=== PATIENT | male | born 1945 | race Caucasian/White ===

== ENCOUNTER 2021-06-02 13:40 | Inpatient (IN) | payer MEDICARE ==
--- NOTE | 2021-06-02 14:49 | ED ---
General Adult HPI - General Source: patient, EMS Mode of arrival: EMS <Gorge Craven - Last Filed: 06/02/21 15:01> <Sophie Kwon - Last Filed: 06/19/21 07:25> - General Chief complaint: Shortness of Breath Stated complaint: covid+ Time Seen by Provider: 06/02/21 14:01 - History of Present Illness Initial comments: 75-year-old male with a past medical history of atrial fibrillation presents to the emergency room for a chief complaint of low pulse oxygenation. Patient was seen at [facility]. He was diagnosed with coronavirus 10 days ago and symptoms started about 2 days before that. Patient was saturating at 83% at home when ambulating which prompted him to go to the emergency room. Patient was found to have oxygenation L ambulating at 83% room air, at rest 88%, at 2 L 92%. According to [facility] report he has also been on Decadron and azithromycin. He has finished azithromycin. Patient has no other complaints at this time including chest pain, abdominal pain, nausea or vomiting, headache, or visual changes. (Gorge Craven) - Related Data Home Medications Medication Instructions Recorded Confirmed Albuterol Sulfate [Albuterol 2 puff INHALATION RT-Q4H PRN 06/02/21 06/02/21 Sulfate Hfa] Ascorbic Acid [Vitamin C] 500 mg PO DAILY 06/02/21 06/02/21 Aspirin EC [Ecotrin Low Dose] 81 mg PO DAILY 06/02/21 06/02/21 Calcium/Magnesium/Zinc 1 tab PO DAILY 06/02/21 06/02/21 [Leggiwb-Jccsboqsk-Egbd Tablet] Cholecalciferol [Vitamin D3 (25 25 mcg PO DAILY 06/02/21 06/02/21 Mcg = 1000 Iu)] Cyanocobalamin (Vitamin B-12) 1,000 mcg PO DAILY 06/02/21 06/02/21 [Vitamin B-12] Dexamethasone 6 mg PO DAILY 06/02/21 06/02/21 Doxycycline Hyclate 100 mg PO BID 06/02/21 06/02/21 Loratadine 10 mg PO DAILY 06/02/21 06/02/21 Metoprolol Succinate (ER) [Toprol 25 mg PO DAILY 06/02/21 06/02/21 Xl] Ondansetron Odt [Zofran Odt] 8 mg PO Q8HR PRN 06/02/21 06/02/21 Super Beta Prostate 1 tab PO BID 06/02/21 06/02/21 Vit C/E/Zn/Coppr/Lutein/Zeaxan 1 cap PO BID 06/02/21 06/02/21 [Preservision Areds 2 Softgel] Zinc 100 mg PO DAILY 06/02/21 06/02/21 Allergies Allergy/AdvReac Type Severity Reaction Status Date / Time No Known Allergies Allergy Verified 06/02/21 15:10 Review of Systems ROS Other: All systems not noted in ROS Statement are negative. <Gorge Craven P - Last Filed: 06/02/21 15:01> ROS Other: All systems not noted in ROS Statement are negative. <Sophie Kwon - Last Filed: 06/19/21 07:25> ROS Statement: Those systems with pertinent positive or pertinent negative responses have been documented in the HPI. Past Medical History Past Medical History: Atrial Fibrillation Additional Past Medical History / Comment(s): BPH History of Any Multi-Drug Resistant Organisms: None Reported Past Surgical History: Cholecystectomy, Hernia Repair, Joint Replacement, Orthopedic Surgery Additional Past Surgical History / Comment(s): KNEE REPLACEMENT KAYODE Past Psychological History: No Psychological Hx Reported Smoking Status: Former smoker Past Alcohol Use History: None Reported Past Drug Use History: None Reported <Gorge Craven P - Last Filed: 06/02/21 15:01> General Exam General appearance: alert, in no apparent distress Head exam: Present: atraumatic Eye exam: Present: normal appearance, PERRL, EOMI. Absent: scleral icterus, conjunctival injection ENT exam: Present: normal exam, mucous membranes moist Neck exam: Present: normal inspection, full ROM. Absent: tenderness Respiratory exam: Present: normal lung sounds bilaterally. Absent: respiratory distress, wheezes Cardiovascular Exam: Present: regular rate, normal rhythm, normal heart sounds GI/Abdominal exam: Present: soft, normal bowel sounds. Absent: distended, tenderness Neurological exam: Present: alert <Gorge Craven P - Last Filed: 06/02/21 15:01> Course Vital Signs 06/02/21 06/02/21 06/02/21 13:52 14:32 16:01 Temperature 99.1 F Pulse Rate 83 84 Respiratory 16 16 16 Rate Blood Pressure 120/73 133/71 O2 Sat by Pulse 96 94 L Oximetry 06/02/21 06/02/21 06/02/21 19:19 20:20 21:28 Temperature 97.6 F Pulse Rate 66 75 76 Respiratory 20 18 20 Rate Blood Pressure 109/96 131/97 O2 Sat by Pulse 93 L 95 94 L Oximetry 06/02/21 06/03/21 06/03/21 22:58 00:58 02:05 Temperature Pulse Rate 60 56 L 79 Respiratory 18 18 20 Rate Blood Pressure 138/84 118/76 142/79 O2 Sat by Pulse 93 L 98 94 L Oximetry 06/03/21 06/03/21 06/03/21 03:10 04:35 05:00 Temperature Pulse Rate 84 91 86 Respiratory 22 26 H 22 Rate Blood Pressure 124/68 O2 Sat by Pulse 92 L 84 L 92 L Oximetry 06/03/21 06/03/21 06/03/21 05:36 06:26 06:31 Temperature Pulse Rate 71 81 Respiratory 22 20 20 Rate Blood Pressure 115/64 O2 Sat by Pulse 94 L 93 L Oximetry 06/03/21 06/03/21 06/03/21 07:35 11:10 15:04 Temperature 98.5 F 98.8 F Pulse Rate 66 99 89 Respiratory 20 22 20 Rate Blood Pressure 120/68 116/61 128/78 O2 Sat by Pulse 90 L 95 93 L Oximetry Medical Decision Making <Gorge Craven P - Last Filed: 06/02/21 15:01> - Lab Data Result diagrams: 06/19/21 03:25 06/19/21 03:25 <Sophie Kwon - Last Filed: 06/19/21 07:25> - Medical Decision Making Patient presents on 2 L nasal cannula. When oxygen was removed he did desaturate to 90 and I did restart his oxygen. He was apparently a 88% room air @ rest at [facility]. Patient is well-appearing. However he has White blood cell count is 16.5. D-dimer was 580 within normal range of less than 500, pro time 15.2, fibrinogen 88 7. Slight transaminitis. LDH 346 CRP 78 lactic acid 2.4 chest x-ray did show pneumonia. Report will be uploaded. He did receive 1 L normal saline bolus at [facility]. Case is discussed with Dr. Gordon who did agree with starting antibiotics given the leukocytosis and lactic acidosis. We will start IV Decadron. We will consult pulmonology. (Gorge Craven) Disposition Is patient prescribed a controlled substance at d/c from ED?: No Time of Disposition: 15:10 <Gorge Craven - Last Filed: 06/02/21 15:01> <Sophie Kwon - Last Filed: 06/19/21 07:25> Clinical Impression: COVID, Acute and chronic respiratory failure with hypoxia, Leukocytosis, Lactic acidosis Disposition: ADMITTED IP TO THIS HOSP
[2021-06-02] MEDS ORDERED: DEXAMETHASONE SOD PHOSPHATE 4 MG/ML 1 ML VIAL IV STA (15:02)
[2021-06-02] MEDS ORDERED: AZITHROMYCIN 500 MG in SODIUM CHLORIDE 0.9% 250 ML IVPB STA (15:02)
[2021-06-02] MEDS ORDERED: cefTRIAXone IN SWFI 1,000 MG/10 ML SYRINGE IVP STA (15:02)
[2021-06-02] MEDS ORDERED: PNEUMONIA PROTOCOL UTILIZED 1 EACH MISC PO PRN (15:12)
[2021-06-02] MEDS: SODIUM CHLORIDE 0.9% 1,000 ML IV SCH ×2 (15:43→18:29)
[2021-06-02] MEDS: METOPROLOL TARTRATE 25 MG TAB PO SCH (18:28)
--- NOTE | 2021-06-02 19:53 | XR ---
EXAMINATION TYPE: XR chest 1V portable DATE OF EXAM: 06/02/2021 COMPARISON: NONE HISTORY: Pneumonia TECHNIQUE: Single view FINDINGS: Heart and mediastinum are normal. There is patchy interstitial infiltrates in the mid and l ower lung de la torre. There is no definite heart failure. There are chest leads. IMPRESSION: Bilateral interstitial pneumonia.
[2021-06-02] MEDS ORDERED: ONDANSETRON ODT 8 MG TAB.RAPDIS PO PRN (20:01)
[2021-06-02 20:49] LABS: Basophils % (A) 0 %; Eosinophils # (A) 0.1 k/uL (0-0.7); Eosinophils % (A) 0 %; HGB 14.6 gm/dL (13.0-17.5); Lymphocytes # (A) 0.6 k/uL (1.0-4.8); Lymphocytes % (A) 3 %; MCH 30.1 pg (25.0-35.0); MCHC 32.5 g/dL (31.0-37.0); MCV 92.4 fL (80.0-100.0); Mean Platelet Volume 8.6; Monocytes # (A) 0.8 k/uL (0-1.0); Monocytes % (A) 5 %; Neutrophils # (A) 14.6 k/uL (1.3-7.7); Neutrophils % (A) 91 %; Platelet Count 286 k/uL (150-450); RBC 4.87 m/uL (4.30-5.90); RDW 13.1 % (11.5-15.5); WBC 16.2 k/uL (3.8-10.6)
[2021-06-02] MEDS: ZINC SULFATE 220 MG CAP PO SCH (20:55)
[2021-06-02] MEDS: PANTOPRAZOLE 40 MG TABLET PO SCH (20:55)
[2021-06-02] MEDS: ENOXAPARIN 40 MG/0.4 ML SYRINGE SQ SCH (20:56)
[2021-06-02 21:04] LABS: ALT 119 U/L (4-49); AST 82 U/L (17-59); African American GFR (CKD) >90 (>60 ml/min/1.73 sqM); Alkaline Phosphatase 94 U/L (38-126); Anion Gap 8 mmol/L; Blood Urea Nitrogen 19 mg/dL (9-20); C Reactive Protein 7.7 mg/dL (<1.0); Calcium 8.1 mg/dL (8.4-10.2); Carbon Dioxide 22 mmol/L (22-30); Chloride 107 mmol/L (98-107); Globulin 3.1 g/dL; Glucose 142 mg/dL (74-99); Non-African American GFR(CKD) >90 (>60 ml/min/1.73 sqM); Potassium 4.8 mmol/L (3.5-5.1); Sodium 137 mmol/L (137-145); Total Bilirubin 0.8 mg/dL (0.2-1.3); Total Protein 6.1 g/dL (6.3-8.2)
--- NOTE | 2021-06-02 21:40 | HP ---
HISTORY AND PHYSICAL DATE OF SERVICE: 06/02/2021. CHIEF COMPLAINT: Shortness of breath and Covid positive. HISTORY OF PRESENT ILLNESS: This 76-year-old gentleman with past medical history of atrial fibrillation, BPH, history of cholecystectomy, being followed by Dr. Wagner in [facility], was complaining of shortness of breath. The patient apparently was having shortness of breath and cough and other symptoms for the last almost 12 days. The patient had a low pulse ox, was monitoring the pulse ox at home and was 83 on ambulation and the patient was concerned. Patient came to [facility] and was admitted and was found to have pneumonia and was referred to [facility] for further evaluation and treatment. The patient also found to have lactic acidosis. There is no history of fever, rigors. No history of headache, loss of consciousness or seizures at this time. The patient is a unvaccinated. PAST MEDICAL HISTORY: History of atrial fibrillation, BPH, history of cholecystectomy, history of hernia. MEDICATIONS: Home medications are: Albuterol, super beta prostate, vitamin B12, calcium, vitamin D3, ascorbic acid, Zofran, Toprol-XL. Levaquin, aspirin, doxycycline, dexamethasone. ALLERGIES: None. FAMILY HISTORY: No history of heart disease or strokes in the family. SOCIAL HISTORY: Previous history of smoking. No history of current smoking or alcohol. REVIEW OF SYSTEMS: ENT: No diminished hearing. No diminished vision. CARDIOVASCULAR system: S1, S2 muffled. RESPIRATORY: As mentioned earlier. GI no nausea or vomiting. mentioned earlier. NERVOUS SYSTEM: No numbness, weakness. ALLERGY/IMMUNOLOGY: No asthma or hayfever. MUSCULOSKELETAL: As mentioned earlier. HEMATOLOGY/ONCOLOGY: No history of anemia. ENDOCRINE: As mentioned earlier. CONSTITUTIONAL: As mentioned earlier. DERMATOLOGY: Negative. RHEUMATOLOGY negative. PSYCHIATRY as mentioned earlier. PHYSICAL EXAMINATION: Patient is alert and oriented times three. The patient is short of breath. Pulse is 66, blood pressure 109/93, respirations 20. Temperature 97.6, pulse ox 93 percent on 4 L. HEENT: Conjunctivae normal. Oral mucosa moist. NECK is no jugular venous distention. No carotid bruit. No lymph node enlargement. CARDIOVASCULAR systems: S1, S2 muffled. RESPIRATION: Breath sounds diminished in the bases. A few scattered rhonchi. ABDOMEN: Soft. Nontender. NERVOUS SYSTEM: Higher functions as mentioned earlier. Moves all four limbs. No focal motor or sensory deficits. LYMPHATICS: No lymph nodes palpable in the neck, axillae or groin. SKIN: No ulcer, rash and no bleeding. JOINTS: No active deforming arthropathy. LABS: Pending at this time. Chest x-ray was reviewed personally by me showed significant bilateral lower lobe infiltrates suggestive of Covid 19 pneumonia. ASSESSMENT: 1. Acute Covid 19 infection with acute Covid 19 interstitial pneumonia, bilateral, with acute hypoxic respiratory failure. 2. History of cholecystectomy. 3. History of atrial fibrillation. 4. History of benign prostatic hypertrophy. 5. History of hernia repair. 6. History of degenerative joint disease. 7. Remote history of nicotine dependence. 8. Lactic acidosis. RECOMMENDATIONS: Recommend to continue current medications, management and symptomatic treatment. We will consult pulmonology and we will initiate usual medications for Covid including dexamethasone, zinc and vitamin. Otherwise, the patient might be a candidate for Remdesivir. We will also do a D-dimer and if D-dimer is positive, I would also perform CT angio of the chest. Prognosis guarded. Further recommendations to follow. MMODL / IJN: [id number] /
[2021-06-02] MEDS: ALBUTEROL HFA INHALER INHALATION SCH ×2 (21:47→22:01)
[2021-06-03] MEDS: ALBUTEROL HFA INHALER INHALATION SCH ×5 (02:45→20:41)
[2021-06-03] MEDS ORDERED: ALBUTEROL HFA INHALER INHALATION PRN (02:46)
--- NOTE | 2021-06-03 07:06 | XR ---
EXAMINATION TYPE: XR chest 1V DATE OF EXAM: 06/03/2021 HISTORY: Shortness of breath. COMPARISON: 06/02/2021 TECHNIQUE: Single view of the chest is submitted. FINDINGS: Demonstrated are scattered senescent parenchymal change. Coarse infiltrates are noted about the perihilar right upper lobe regions mildly progressive relative to prior examination. Continued follow-up is advised. The heart is stable. Hilar and mediastinal structures are within normal limits. Degenerative changes are seen of the dorsal spine. IMPRESSION: 1. Coarse infiltrates are noted about the perihilar right upper lobe regions mildly progressive rela tive to prior examination. Continued follow-up is advised.
[2021-06-03] MEDS ORDERED: cefTRIAXone IN SWFI 1,000 MG/10 ML SYRINGE IVP SCH (09:00)
[2021-06-03 09:08] LABS: Basophils # (A) 0.02 X 10*3/uL (0.00-0.10); Basophils % (A) 0.1 %; Eosinophils # (A) 0 X 10*3/uL (0.04-0.35); Eosinophils % (A) 0 %; HGB 13.9 g/dL (13.0-17.0); Lymphocytes # (A) 0.78 X 10*3/uL (0.90-5.00); Lymphocytes % (A) 4.1 %; MCH 28.4 pg (27.0-32.0); MCHC 32.3 g/dL (32.0-37.0); MCV 87.8 fL (80.0-97.0); Mean Platelet Volume 10.3 fL (9.5-12.2); Monocytes # (A) 0.83 X 10*3/uL (0.20-1.00); Monocytes % (A) 4.4 %; Neutrophils # (A) 17.04 X 10*3/uL (1.80-7.70); Neutrophils % (A) 90.1 %; Platelet Count 324 X 10*3/uL (140-440); RDW 13.4 % (11.5-14.5); WBC 18.92 X 10*3/uL (4.50-10.00)
[2021-06-03] MEDS: ASPIRIN 81 MG PO SCH (10:08)
[2021-06-03] MEDS: ZINC SULFATE 220 MG CAP PO SCH (10:08)
[2021-06-03] MEDS: ASCORBIC ACID 500 MG TAB PO SCH (10:08)
[2021-06-03] MEDS: DEXAMETHASONE SOD PHOSPHATE 10 MG/ML 1 ML VIAL IV SCH (10:08)
[2021-06-03] MEDS: ENOXAPARIN 40 MG/0.4 ML SYRINGE SQ SCH (10:08)
[2021-06-03] MEDS: CHOLECALCIFEROL 25 MCG (1000 IU) TABLET PO SCH (10:08)
[2021-06-03] MEDS: PANTOPRAZOLE 40 MG TABLET PO SCH ×2 (10:08→17:11)
[2021-06-03] MEDS: METOPROLOL TARTRATE 25 MG TAB PO SCH (10:08)
[2021-06-03] MEDS: CYANOCOBALAMIN 500 MCG TAB PO SCH (10:11)
--- NOTE | 2021-06-03 10:18 | P.CNPUL ---
History of Present Illness Consult date: 06/03/21 Requesting physician: Noemi Price Reason for consult: dyspnea, cough, hypoxemia, pneumonia, abnormal CXR/CT Chief complaint: Shortness of breath and cough. History of present illness: Pulmonary consult dated 06/03/2021. 75-year-old male, admitted with a diagnosis of coronavirus associated pneumonia. The patient has a history of chronic atrial fibrillation. The patient apparently was seen by his primary doctor, and given antibiotics and steroids. The patient became ill with complaints of cough and shortness of breath, with fever and chills, back on May 23. Positive for coronavirus on May 24. The patient was in the [facility] emergency room yesterday, and transferred here. The patient does have a history of chronic atrial fibrillation. The patient was placed on Lovenox, Decadron, and vitamins. The patient was not a candidate for REM. The patient is non-vaccinated. Currently, we see him in room 10, in the emergency department. White count 18.92. Hemoglobin hematocrit and platelet count are all normal. D-dimer was 0.7. Sodium, potassium, chloride, CO2, anion gap, and BUN were normal. Creatinine was 0.62. Ferritin 826, ALT 119. LDH was 1075. C-reactive protein 7.7. Chest x-ray shows diffuse bilateral infiltrates. Review of Systems REVIEW OF SYSTEMS: CONSTITUTIONAL: Fever, and weakness. NEUROLOGIC: [ Negative.] HEENT: [ Negative.] CARDIAC: [Negative.] PULMONARY: Shortness of breath, cough, chest congestion. GI: [Negative.] : [Negative.] RHEUMATOLOGIC: [ Negative.] IMMUNOLOGIC: [ Negative.] ENDOCRINE: [Negative. ] DERMATOLOGIC: [Negative.] Past Medical History Past Medical History: Atrial Fibrillation Additional Past Medical History / Comment(s): BPH History of Any Multi-Drug Resistant Organisms: None Reported Past Surgical History: Cholecystectomy, Hernia Repair, Joint Replacement, Orthopedic Surgery Additional Past Surgical History / Comment(s): KNEE REPLACEMENT KAYODE Past Psychological History: No Psychological Hx Reported Smoking Status: Former smoker Past Alcohol Use History: None Reported Past Drug Use History: None Reported Medications and Allergies Home Medications Medication Instructions Recorded Confirmed Type Albuterol Sulfate [Albuterol 2 puff INHALATION RT-Q4H PRN 06/02/21 06/02/21 History Sulfate Hfa] Ascorbic Acid [Vitamin C] 500 mg PO DAILY 06/02/21 06/02/21 History Aspirin EC [Ecotrin Low Dose] 81 mg PO DAILY 06/02/21 06/02/21 History Calcium/Magnesium/Zinc 1 tab PO DAILY 06/02/21 06/02/21 History [Wegvofm-Eaykulxsz-Xhzz Tablet] Cholecalciferol [Vitamin D3 (25 25 mcg PO DAILY 06/02/21 06/02/21 History Mcg = 1000 Iu)] Cyanocobalamin (Vitamin B-12) 1,000 mcg PO DAILY 06/02/21 06/02/21 History [Vitamin B-12] Dexamethasone 6 mg PO DAILY 06/02/21 06/02/21 History Doxycycline Hyclate 100 mg PO BID 06/02/21 06/02/21 History Loratadine 10 mg PO DAILY 06/02/21 06/02/21 History Metoprolol Succinate (ER) [Toprol 25 mg PO DAILY 06/02/21 06/02/21 History Xl] Ondansetron Odt [Zofran Odt] 8 mg PO Q8HR PRN 06/02/21 06/02/21 History Super Beta Prostate 1 tab PO BID 06/02/21 06/02/21 History Vit C/E/Zn/Coppr/Lutein/Zeaxan 1 cap PO BID 06/02/21 06/02/21 History [Preservision Areds 2 Softgel] Zinc 100 mg PO DAILY 06/02/21 06/02/21 History Allergies Allergy/AdvReac Type Severity Reaction Status Date / Time No Known Allergies Allergy Verified 06/02/21 15:10 Physical Exam Osteopathic Statement: *. No significant issues noted on an osteopathic structural exam other than those noted in the History and Physical/Consult. Vitals: Vital Signs Temp Pulse Resp BP Pulse Ox 06/03/21 07:35 66 20 120/68 90 L 06/03/21 06:31 81 20 93 L 06/03/21 06:26 20 06/03/21 05:36 71 22 115/64 94 L 06/03/21 05:00 86 22 92 L 06/03/21 04:35 91 26 H 124/68 84 L 06/03/21 03:10 84 22 92 L 06/03/21 02:05 79 20 142/79 94 L 06/03/21 00:58 56 L 18 118/76 98 06/02/21 22:58 60 18 138/84 93 L 06/02/21 21:28 76 20 94 L 06/02/21 20:20 75 18 131/97 95 06/02/21 19:19 97.6 F 66 20 109/96 93 L 06/02/21 16:01 84 16 133/71 94 L 06/02/21 14:32 16 06/02/21 13:52 99.1 F 83 16 120/73 96 No acute distress, oriented 3. Currently on nasal O2 at 6 L. No conversational dyspnea, or use of accessory muscles. HEENT examination is grossly unremarkable. Neck supple. Full range of motion. No adenopathy thyromegaly or neck vein distention. Cardiovascular examination reveals regular rhythm rate. S1-S2 normal. No S3 or S4. No discernible murmur noted. Heart rate 66 bpm. Heart sounds are distant. Lungs reveal coarse bilateral rhonchi. No wheezes or crackles. Breath sounds equal bilaterally. Saturations are 90-93% on 6 L. Abdomen soft bowel sounds are heard. No masses or tenderness. Extremities are intact. No cyanosis clubbing or edema. Skin is without rash or lesion. Neurologic examination is brief but nonfocal. Results - Laboratory Findings CBC and BMP: 06/03/21 04:50 06/02/21 20:08 PT/INR, D-dimer D-Dimer 0.70 mg/L FEU (<0.60) H 06/02/21 20:08 Abnormal lab findings: Abnormal Labs 06/02/21 06/02/21 06/02/21 20:08 20:08 20:08 WBC 16.2 H Immature Gran # Neutrophils # 14.6 H Lymphocytes # 0.6 L Eosinophils # D-Dimer 0.70 H Creatinine Glucose Calcium Ferritin 826.0 H AST ALT Lactate Dehydrogenase 1075 H C-Reactive Protein Total Protein Albumin 06/02/21 06/03/21 20:08 04:50 WBC 18.92 H Immature Gran # 0.25 H Neutrophils # 17.04 H Lymphocytes # 0.78 L Eosinophils # 0 L D-Dimer Creatinine 0.62 L Glucose 142 H Calcium 8.1 L Ferritin AST 82 H ALT 119 H Lactate Dehydrogenase C-Reactive Protein 7.7 H Total Protein 6.1 L Albumin 3.0 L - Diagnostic Findings Chest x-ray: image reviewed Assessment and Plan Assessment: Acute hypoxemic respiratory failure secondary to coronavirus associated pneumonia. History of chronic atrial fibrillation. Plan: Plan dated 06/03/2021. The patient is not a candidate for REM. The patient is not sick enough to receive a monoclonal antibody against interleukin-6. The patient should be on Lovenox, Decadron, and vitamins. We recommend oxygen therapy. We also recommend the patient move about in bed, right side down, left side down, supine, and prone if possible. Additional recommendations and suggestions are forthcoming. No need for antibiotics at this time. A pro-calcitonin level was ordered. Time with Patient: Greater than 30
[2021-06-03] MEDS ORDERED: ACETAMINOPHEN TAB 325 MG TAB PO STA (10:51)
--- NOTE | 2021-06-03 12:48 | CT ---
EXAMINATION TYPE: CT angio chest DATE OF EXAM: 06/03/2021 COMPARISON: Radiograph same day HISTORY: 75-year-old male shortness of breath, covid 19 TECHNIQUE: Contiguous axial scanning of the chest performed with IV Contrast, patient injected with 1 00 mL of Isovue 300. Coronal/sagittal MIP reconstructions performed. CT DLP: 437.6 mGycm Automated exposure control for dose reduction was used. FINDINGS: The heart is borderline enlarged without pericardial effusion. No flattening of the interventricular septum or reflux of contrast into the hepatic veins. Mild ectasia ascending aorta 3.6 cm. Conventional arch vessel branching anatomy. Enlarged caliber to the main right and left pulmonary arteries measuring 3.2 and 2.7 cm, respectively , suggesting underlying pulmonary arterial hypertension. Satisfactory opacification of the pulmonary arterial system but with a extensive breathing motion art ifact. No large central pulmonary embolus. No definite lobar branch embolus. Again, assessment is xenia y limited. Unable to exclude a small central filling defect within a segmental right lower lobe basil ar branch. Most of the segmental and more distal arterial branches are nondiagnostic due to the degre e of breathing motion. Right hilar lymphadenopathy measuring up to 1.9 cm likely reactive. Pretracheal lymph node measures u p to 1.4 cm. Severe patchy and confluent bilateral groundglass and crazy paving appearance to the lungs. Dependent atelectasis. Bones: Disc osteophyte complex at T12-L1 may contribute to moderate central spinal canal stenosis. No rmal variant sternal foramen. IMPRESSION: 1. THE PATIENT IS BREATHING DURING THE SCAN. THIS MARKEDLY LIMITS ASSESSMENT FOR PULMONARY EMBOLUS. N O LARGE CENTRAL EMBOLUS. NO DEFINITE LOBAR BRANCH EMBOLUS. EQUIVOCAL FOR A SMALL EMBOLUS WITHIN A BAS ILAR SEGMENTAL RIGHT LOWER LOBE BRANCH, AXIAL IMAGE 73. MOST OF THESE SMALLER BRANCHES ARE NONDIAGNOS TIC DUE TO THE DEGREE OF MOTION. 2. BORDERLINE CARDIOMEGALY AND PULMONARY ARTERIAL HYPERTENSION. 3. SEVERE BILATERAL COVID PNEUMONIA. RIGHT HILAR LYMPHADENOPATHY MEASURING UP TO 1.9 CM LIKELY REACTI VE.
[2021-06-03] MEDS ORDERED: AZITHROMYCIN 500 MG in SODIUM CHLORIDE 0.9% 250 ML IVPB SCH (15:00)
[2021-06-03] MEDS: SODIUM CHLORIDE 0.9% 1,000 ML IV SCH (17:13)
[2021-06-03] MEDS: ENOXAPARIN 80 MG/0.8 ML SYRINGE SQ SCH (19:37)
--- NOTE | 2021-06-03 19:45 | PN ---
PROGRESS NOTE DATE OF SERVICE: 06/03/2021. HISTORY: This 75-year-old gentleman admitted with acute Covid 19 infection also had acute Covid 19 interstitial pneumonia. The patient also hypoxemia, patient had extreme shortness of breath. Pulmonary is following the patient closely. Bronchodilators and the usual medications are also noted. CTA which reviewed personally showed underlying pulmonary hypertension. Otherwise, severe bilateral pneumonia as well as right lymphadenopathy, equivocal for a small embolus in the basilar segmental right lower lobe artery. The patient being closely monitored. Patient is still short of breath, unable to even complete the sentences. PAST MEDICAL HISTORY: Reviewed. REVIEW OF SYSTEMS: Cardiovascular is as mentioned earlier. GI as mentioned. as mentioned. Respiratory as mentioned earlier. CURRENT MEDICATIONS: Ventolin, vitamin C, aspirin, vitamin D3, B12, Decadron, Lovenox, Lopressor, Zofran, Protonix. PHYSICAL EXAMINATION: Patient is alert, oriented, the patient is extremely short of breath. Pulse 89, blood pressure 120/78, respirations 20 temperature 98.8, pulse ox 98% on 2 L. HEENT: S1, S2 muffled. RESPIRATORY SYSTEM: Breath sounds diminished at the bases. Bilateral scattered rhonchi and crackles. ABDOMEN: Soft, nontender. No mass palpable. LEGS: No edema no swelling. NERVOUS SYSTEM: As mentioned. Moves all 4 limbs equally. LYMPHATICS: No palpable nodes. SKIN: No rashes. JOINTS: No active arthropathy. LABS: WBC 18.2, and D-dimer is 0.70. Troponin 0.012. ASSESSMENT: 1. Acute Covid 19 infection with acute Covid 19 interstitial pneumonia, bilateral, with acute hypoxic respiratory failure. 2. Extensive interstitial bilateral Covid 19 pneumonia. 3. Possible subsegmental pulmonary embolism. 4. History of cholecystectomy. 5. History atrial fibrillation. 6. History of BPH. 7. History of hernia repair. 8. History of DJD. 9. Remote history of nicotine dependence. 10.Lactic acidosis. RECOMMENDATIONS AND DISCUSSION: I recommend to continue current management and symptomatic treatment. Otherwise procalcitonin is normal at this time. Recommend increase the dose of Lovenox and continue to monitor. Ultrasound of the leg also will be requested. The prognosis is guarded because of multiple complex medical problems. See orders for details. MMODL / IJN: [id number] /
--- NOTE | 2021-06-03 22:10 | US ---
EXAMINATION TYPE: US venous doppler duplex LE BI DATE OF EXAM: 06/03/2021 9:05 PM COMPARISON: NONE CLINICAL HISTORY: dvt. SIDE PERFORMED: Bilateral TECHNIQUE: The lower extremity deep venous system is examined utilizing real time linear array sonog ranulfo with graded compression, doppler sonography and color-flow sonography. VESSELS IMAGED: Common Femoral Vein Deep Femoral Vein Greater Saphenous Vein * Femoral Vein Popliteal Vein Small Saphenous Vein * Proximal Calf Veins (* superficial vessels) Right Leg: Negative for DVT Left Leg: Negative for DVT IMPRESSION: No evidence of bilateral lower extremity DVT.
[2021-06-04] MEDS: PANTOPRAZOLE 40 MG TABLET PO SCH ×2 (08:08→17:44)
[2021-06-04] MEDS: ASPIRIN 81 MG PO SCH (08:08)
[2021-06-04] MEDS: CHOLECALCIFEROL 25 MCG (1000 IU) TABLET PO SCH (08:08)
[2021-06-04] MEDS: ASCORBIC ACID 500 MG TAB PO SCH (08:08)
[2021-06-04] MEDS: SODIUM CHLORIDE 0.9% 1,000 ML IV SCH ×2 (08:08→17:44)
[2021-06-04] MEDS: METOPROLOL TARTRATE 25 MG TAB PO SCH (08:09)
[2021-06-04] MEDS: ZINC SULFATE 220 MG CAP PO SCH (08:09)
[2021-06-04] MEDS: ENOXAPARIN 80 MG/0.8 ML SYRINGE SQ SCH (08:09)
[2021-06-04] MEDS: DEXAMETHASONE SOD PHOSPHATE 10 MG/ML 1 ML VIAL IV SCH (08:09)
[2021-06-04] MEDS: CYANOCOBALAMIN 500 MCG TAB PO SCH (08:09)
[2021-06-04] MEDS: ALBUTEROL HFA INHALER INHALATION SCH ×4 (09:26→20:43)
--- NOTE | 2021-06-04 11:14 | P.PN ---
Subjective Progress Note Date: 06/04/21 Principal diagnosis: Shortness of breath, coronavirus pneumonia. Pulmonary consult dated 06/03/2021. 75-year-old male, admitted with a diagnosis of coronavirus associated pneumonia. The patient has a history of chronic atrial fibrillation. The patient apparently was seen by his primary doctor, and given antibiotics and steroids. The patient became ill with complaints of cough and shortness of breath, with fever and chills, back on May 23. Positive for coronavirus on May 24. The patient was in the [facility] emergency room yesterday, and transferred here. The patient does have a history of chronic atrial fibrillation. The patient was placed on Lovenox, Decadron, and vitamins. The patient was not a candidate for REM. The patient is non-vaccinated. Currently, we see him in room 10, in the emergency department. White count 18.92. Hemo globin hematocrit and platelet count are all normal. D-dimer was 0.7. Sodium, potassium, chloride, CO2, anion gap, and BUN were normal. Creatinine was 0.62. Ferritin 826, ALT 119. LDH was 1075. C-reactive protein 7.7. Chest x-ray shows diffuse bilateral infiltrates. Progress note dated 06/04/2021. 75-year-old male, seen in the emergency department yesterday, the diagnosis of acute hypoxemic respiratory failure secondary to coronavirus associated pneumonia. The patient also has a history of chronic atrial fibrillation. The patient was outside the window for REM. The patient's overall condition in the last couple days has worsened, and we will likely try to provide him with the monoclonal antibody against interleukin-6, LUIS. Currently, the patient is getting oxygen via 15 L high flow nasal cannula, and sometimes using a nonrebreather mask as well. There were no new labs today. Venous Doppler studies were negative. CT angiogram was essentially negative for pulmonary embolism but did show patchy bilateral infiltrates consistent with a diagnosis of coronavirus pneumonia. Objective - Vital Signs Vital signs: Vital Signs Temp 98.8 F 06/04/21 10:00 Pulse 70 06/04/21 10:00 Resp 22 06/04/21 10:00 BP 128/68 06/04/21 10:00 Pulse Ox 90 L 06/04/21 10:58 Intake & Output 06/03/21 06/04/21 06/04/21 18:59 06:59 18:59 Output Total 400 500 Balance -400 -500 Weight 98 kg Output: Urine 400 500 Other: # Voids 2 - Exam No acute distress, oriented 3. Currently on nasal O2 at 15 L. Also using a nonrebreather mass. Mild conversational dyspnea, and no use of accessory muscles. HEENT examination is grossly unremarkable. Neck supple. Full range of motion. No adenopathy thyromegaly or neck vein distention. Cardiovascular examination reveals regular rhythm rate. S1-S2 normal. No S3 or S4. No discernible murmur noted. Heart rate 70 bpm. Heart sounds are distant. Lungs reveal coarse bilateral rhonchi. No wheezes or crackles. Breath sounds equal bilaterally. Saturations are 90% on 15 L high flow nasal cannula. Abdomen soft bowel sounds are heard. No masses or tenderness. Extremities are intact. No cyanosis clubbing or edema. Skin is without rash or lesion. Neurologic examination is brief but nonfocal. - Labs CBC & Chem 7: 06/03/21 04:50 06/02/21 20:08 Labs: Microbiology - Last 24 Hours (Table) 06/02/21 15:35 Blood Culture - Preliminary Blood No Growth after 24 hours 06/02/21 15:50 Blood Culture - Preliminary Blood No Growth after 24 hours Assessment and Plan Assessment: Acute hypoxemic respiratory failure secondary to coronavirus associated pneumonia. History of chronic atrial fibrillation. Plan: Plan dated 06/03/2021. The patient is not a candidate for REM. The patient is not sick enough to receive a monoclonal antibody against interleukin-6. The patient should be on Lovenox, Decadron, and vitamins. We recommend oxygen therapy. We also recommend the patient move about in bed, right side down, left side down, supine, and prone if possible. Additional recommendations and suggestions are forthcoming. No need for antibiotics at this time. A pro-calcitonin level was ordered. Plan dated 06/04/2021. The patient's on appropriate medications. The patient was not a candidate for REM. We did order the monoclonal antibody against interleukin-6. The patient should be on Decadron, Lovenox, and vitamins. We've asked him to move about in bed, right side down, left side down, supine and prone. CT angiogram was negative for PE. Medications are reviewed. Prognosis is guarded. Additional recommendations and suggestions are forthcoming. The patient's Lovenox is reduce down the 40 mg subcu daily. Time with Patient: Less than 30
[2021-06-04 11:44] LABS: Basophils # (A) 0.04 X 10*3/uL (0.00-0.10); Basophils % (A) 0.2 %; Eosinophils # (A) 0 X 10*3/uL (0.04-0.35); Eosinophils % (A) 0 %; HCT 43.5 % (39.6-50.0); HGB 13.8 g/dL (13.0-17.0); Lymphocytes # (A) 0.97 X 10*3/uL (0.90-5.00); Lymphocytes % (A) 4.5 %; MCH 28.2 pg (27.0-32.0); MCHC 31.7 g/dL (32.0-37.0); Mean Platelet Volume 9.9 fL (9.5-12.2); Monocytes # (A) 1.18 X 10*3/uL (0.20-1.00); Monocytes % (A) 5.5 %; Neutrophils # (A) 18.83 X 10*3/uL (1.80-7.70); Neutrophils % (A) 88.3 %; Platelet Count 382 X 10*3/uL (140-440); RBC 4.89 X 10*6/uL (4.40-5.60); RDW 13.6 % (11.5-14.5); WBC 21.35 X 10*3/uL (4.50-10.00)
[2021-06-04] MEDS: BARICITINIB 2 MG TABLET PO SCH (12:42)
--- NOTE | 2021-06-04 12:58 | ECHOF ---
Referral Reason:covid MEASUREMENTS -------- HEIGHT: 175.3 cm WEIGHT: 98.4 kg BP: 136/75 IVSd: 1.7 cm (0.6 - 1.1) LVIDd: 3.9 cm (3.9 - 5.3) LVPWd: 1.6 cm (0.6 - 1.1) IVSs: 2.0 cm LVIDs: 2.2 cm LVPWs: 2.1 cm LA Diam: 4.8 cm (2.7 - 3.8) Ao Diam: 2.7 cm (2.0 - 3.7) AV Cusp: 1.9 cm (1.5 - 2.6) MV EXCURSION: 19.784 mm (> 18.000) MV EF SLOPE: 67 mm/s (70 - 150) EPSS: 0.4 cm MV E Oj: 0.65 m/s MV DecT: 226 ms MV A Oj: 0.81 m/s MV E/A Ratio: 0.79 RAP: 5.00 mmHg RVSP: 58.54 mmHg FINDINGS -------- Sinus rhythm. This was a technically adequate study. The left ventricular size is normal. There is severe concentric left ventricular hypertrophy. Ove rall left ventricular systolic function is normal with, an EF between 55 - 60 %. The RV was not well visualized. The left atrium is moderately dilated. The right atrium was not well visualized. Interatrial and interventricular septum intact. The aortic valve was not well visualized. There is no evidence of aortic regurgitation. There is no evidence of aortic stenosis. The mitral valve is normal. Mild mitral regurgitation is present. Moderate tricuspid regurgitation present. There is moderate pulmonary hypertension. The right bhavya tricular systolic pressure, as measured by Doppler, is 58.54mmHg. The pulmonic valve was not well visualized. There is no pulmonic regurgitation present. The aortic root size is normal. IVC Not well visulized. There is no pericardial effusion. CONCLUSIONS -------- 1. There is severe concentric left ventricular hypertrophy. 2. Overall left ventricular systolic function is normal with, an EF between 55 - 60 %. 3. The left atrium is moderately dilated. 4. Mild mitral regurgitation is present. 5. Moderate tricuspid regurgitation present. 6. There is moderate pulmonary hypertension. 7. There is no pericardial effusion. EXCELSIOR MACHINE OPERATOR: Claudia Dillard RDCS
[2021-06-04 13:42] LABS: African American GFR (CKD) 107.7 (60.0-200.0); Anion Gap 13.3 mmol/L (4.00-12.00); Calcium 8.1 mg/dL (8.7-10.3); Carbon Dioxide 21.7 mmol/L (21.6-31.8); Potassium 4.3 mmol/L (3.5-5.5)
--- NOTE | 2021-06-04 16:43 | PN ---
PROGRESS NOTE DATE OF SERVICE: 06/04/2021 This 75-year-old gentleman admitted with COVID-19 infection has significant shortness of breath. The patient is receiving Lovenox, dexamethasone and the rest of medications. The patient is saturating 93% on 15 L high-flow oxygen. Patient is being closely monitored. Past medical history reviewed. REVIEW OF SYSTEMS: CARDIOVASCULAR SYSTEM: As mentioned earlier. RESPIRATION: As mentioned earlier. GI: As mentioned earlier. : No dysuria. NERVOUS SYSTEM: No numbness, weakness. CURRENT MEDICATIONS: Reviewed. They include Tylenol, Ventolin, vitamin C, baricitinib, vitamin D3, vitamin B12, Lovenox, Lopressor, Zofran, Protonix. Doses are reviewed PHYSICAL EXAMINATION: Patient is alert oriented x3. Pulse 79, blood pressure 144/79, respiration 18, temperature 98.2, pulse ox 93% on 15 L. HEENT: Conjunctivae normal. NECK: No jugular venous distention. CARDIOVASCULAR: S1, S2 muffled. RESPIRATION: Breath sounds diminished at the bases. A few scattered rhonchi and crackles. ABDOMEN: Soft, nontender. LEGS: No edema. No swelling. NERVOUS SYSTEM: No focal deficit. LABS: WBC 21.35. Otherwise, glucose is 90. ASSESSMENT: 1. Acute COVID-19 infection with acute component of interstitial pneumonia, bilateral, with acute hypoxic respiratory failure and possible sepsis secondary to COVID-19. 2. Extensive interstitial bilateral COVID-19 pneumonia. 3. Possible subsegmental pulmonary embolism. 4. History of cholecystectomy. 5. History of atrial fibrillation. 6. History of benign prostatic hypertrophy. 7. History of hernia repair. 8. History of degenerative joint disease. 9. Remote history of nicotine dependence. 10.Lactic acidosis. 11.Increased white count. 12.Elevated anion gap. RECOMMENDATIONS AND DISCUSSION: In this 75-year-old gentleman who presented with multiple complex medical issues, we will monitor the patient closely, continue the current medications, continue symptomatic treatment. Continue with Lovenox. Continue the rest of the medications. Continue with the baricitinib recommended by Pulmonology. The patient is still on 15 L of oxygen. Prognosis guarded. Further recommendations to follow. See orders for further details. MMODL / IJN: [id number] / [facility]
[2021-06-04] MEDS: ACETAMINOPHEN TAB 325 MG TAB PO PRN (22:18)
[2021-06-05] MEDS: DEXAMETHASONE SOD PHOSPHATE 10 MG/ML 1 ML VIAL IV SCH (08:38)
[2021-06-05] MEDS: ENOXAPARIN 40 MG/0.4 ML SYRINGE SQ SCH (08:38)
[2021-06-05] MEDS: SODIUM CHLORIDE 0.9% 1,000 ML IV SCH ×2 (08:39→15:13)
[2021-06-05] MEDS: PANTOPRAZOLE 40 MG TABLET PO SCH ×2 (08:39→15:12)
[2021-06-05] MEDS: CHOLECALCIFEROL 25 MCG (1000 IU) TABLET PO SCH (08:39)
[2021-06-05] MEDS: ZINC SULFATE 220 MG CAP PO SCH (08:39)
[2021-06-05] MEDS: BARICITINIB 2 MG TABLET PO SCH (08:39)
[2021-06-05] MEDS: ASPIRIN 81 MG PO SCH (08:39)
[2021-06-05] MEDS: CYANOCOBALAMIN 500 MCG TAB PO SCH (08:39)
[2021-06-05] MEDS: ASCORBIC ACID 500 MG TAB PO SCH (08:39)
[2021-06-05] MEDS: METOPROLOL TARTRATE 25 MG TAB PO SCH (08:39)
[2021-06-05] MEDS: ACETAMINOPHEN TAB 325 MG TAB PO PRN ×2 (08:44→15:11)
[2021-06-05] MEDS: ALBUTEROL HFA INHALER INHALATION SCH ×4 (09:28→20:31)
[2021-06-05] MEDS: BENZONATATE 100 MG CAP PO SCH ×2 (09:56→15:11)
[2021-06-05] MEDS: methylPREDNISolone SOD SUCCI 125 MG/2 ML VIAL IV SCH ×2 (11:13→17:02)
--- NOTE | 2021-06-05 11:34 | P.PN ---
Subjective Progress Note Date: 06/05/21 Principal diagnosis: Shortness of breath, coronavirus pneumonia. Pulmonary consult dated 06/03/2021. 75-year-old male, admitted with a diagnosis of coronavirus associated pneumonia. The patient has a history of chronic atrial fibrillation. The patient apparently was seen by his primary doctor, and given antibiotics and steroids. The patient became ill with complaints of cough and shortness of breath, with fever and chills, back on May 23. Positive for coronavirus on May 24. The patient was in the [facility] emergency room yesterday, and transferred here. The patient does have a history of chronic atrial fibrillation. The patient was placed on Lovenox, Decadron, and vitamins. The patient was not a candidate for REM. The patient is non-vaccinated. Currently, we see him in room 10, in the emergency department. White count 18.92. Hemo globin hematocrit and platelet count are all normal. D-dimer was 0.7. Sodium, potassium, chloride, CO2, anion gap, and BUN were normal. Creatinine was 0.62. Ferritin 826, ALT 119. LDH was 1075. C-reactive protein 7.7. Chest x-ray shows diffuse bilateral infiltrates. Progress note dated 06/04/2021. 75-year-old male, seen in the emergency department yesterday, the diagnosis of acute hypoxemic respiratory failure secondary to coronavirus associated pneumonia. The patient also has a history of chronic atrial fibrillation. The patient was outside the window for REM. The patient's overall condition in the last couple days has worsened, and we will likely try to provide him with the monoclonal antibody against interleukin-6, LUIS. Currently, the patient is getting oxygen via 15 L high flow nasal cannula, and sometimes using a nonrebreather mask as well. There were no new labs today. Venous Doppler studies were negative. CT angiogram was essentially negative for pulmonary embolism but did show patchy bilateral infiltrates consistent with a diagnosis of coronavirus pneumonia. Progress note dated 06/05/2021. 75-year-old male, seen in the emergency department, a couple days ago. He was diagnosed with acute hypoxemic respiratory failure secondary to coronavirus associated pneumonia. He also carries with him a diagnosis of chronic atrial fibrillation. Apparently his family doctor wanted to speak to me, so I did call him on the phone today and it gave him an update. She was satisfied with the update. Currently, the patient's on 15 L high flow nasal cannula, and sometimes uses a nonrebreather mask as well. Currently, the patient is on Solu-Medrol 60 mg every 6 hours, Olumiant, Lovenox, and vitamins. Clinically, the patient is about the same as he was a yesterday. No better, and no worse. No new laboratory data today to report. The patient will have a chest x-ray tomorrow. Objective - Vital Signs Vital signs: Vital Signs Temp 98.1 F 06/05/21 10:06 Pulse 83 06/05/21 10:06 Resp 22 06/05/21 10:06 BP 131/74 06/05/21 10:06 Pulse Ox 93 L 06/05/21 10:06 Intake & Output 06/04/21 06/05/21 06/05/21 18:59 06:59 18:59 Intake Total 1080 Output Total 1300 250 Balance -220 -250 Intake: Oral 1080 Output: Urine 1300 250 Other: # Voids 4 - Exam No acute distress, oriented 3. Currently on nasal O2 at 15 L. Also using a nonrebreather mass. Mild conversational dyspnea, and no use of accessory muscles. HEENT examination is grossly unremarkable. Neck supple. Full range of motion. No adenopathy thyromegaly or neck vein distention. Cardiovascular examination reveals regular rhythm rate. S1-S2 normal. No S3 or S4. No discernible murmur noted. Heart rate 83 bpm. Heart sounds are distant. Lungs reveal coarse bilateral rhonchi. No wheezes or crackles. Breath sounds equal bilaterally. Saturations are 93 % on 15 L high flow nasal cannula. Abdomen soft bowel sounds are heard. No masses or tenderness. Extremities are intact. No cyanosis clubbing or edema. Skin is without rash or lesion. Neurologic examination is brief but nonfocal. - Labs CBC & Chem 7: 06/04/21 07:45 06/04/21 07:45 Labs: Abnormal Lab Results - Last 24 Hours (Table) 06/04/21 06/04/21 06/04/21 Range/Units 07:45 07:45 12:45 WBC 21.35 H (4.50-10.00) X 10*3/uL MCHC 31.7 L (32.0-37.0) g/dL Immature Gran # 0.33 H (0.00-0.04) X 10*3/uL Neutrophils # 18.83 H (1.80-7.70) X 10*3/uL Monocytes # 1.18 H (0.20-1.00) X 10*3/uL Eosinophils # 0 L (0.04-0.35) X 10*3/uL Anion Gap 13.30 H (4.00-12.00) mmol/L BUN/Creatinine Ratio 30.00 H (12.00-20.00) Ratio Calcium 8.1 L (8.7-10.3) mg/dL Coronavirus (PCR) Detected A (Not Detectd) Microbiology - Last 24 Hours (Table) 06/02/21 15:35 Blood Culture - Preliminary Blood No Growth after 48 hours 06/02/21 15:50 Blood Culture - Preliminary Blood No Growth after 48 hours Assessment and Plan Assessment: Acute hypoxemic respiratory failure secondary to coronavirus associated pneumon ia. History of chronic atrial fibrillation. Plan: Plan dated 06/03/2021. The patient is not a candidate for REM. The patient is not sick enough to receive a monoclonal antibody against interleukin-6. The patient should be on Lovenox, Decadron, and vitamins. We recommend oxygen therapy. We also recommend the patient move about in bed, right side down, left side down, supine, and prone if possible. Additional recommendations and suggestions are forthcoming. No need for antibiotics at this time. A pro-calcitonin level was ordered. Plan dated 06/04/2021. The patient's on appropriate medications. The patient was not a candidate for REM. We did order the monoclonal antibody against interleukin-6. The patient should be on Decadron, Lovenox, and vitamins. We've asked him to move about in bed, right side down, left side down, supine and prone. CT angiogram was negative for PE. Medications are reviewed. Prognosis is guarded. Additional r ecommendations and suggestions are forthcoming. The patient's Lovenox is reduce down the 40 mg subcu daily. Plan dated 06/05/2021. I did speak to the patient's family doctor today. I explained to him that Steven was not a candidate for REM, given the fact, that he had symptoms for greater than 7 days. He didn't qualify for the monoclonal antibody against interleukin-6, LUIS. In addition, we did increase his steroids Solu-Medrol 60 mg every 6 hours, in place of Decadron, and continue with Lovenox, vitamin C, vitamin D3, and zinc. The patient's overall prognosis is guarded. We will cont inue to follow make recommendations where appropriate. Time with Patient: Less than 30
--- NOTE | 2021-06-05 23:20 | P.CONS ---
History of Present Illness - Reason for Consult Consult date: 06/05/21 COVID-19 pneumonia Requesting physician: Diego Tolentino - Chief Complaint Shortness of breath and hypoxemia x few days - History of Present Illness Patient is a 75-year-old male with a past medical history significant for atrial fibrillation, presented to the ER at [facility] on 06/02/2021 for evaluation of low pulse oxygen, patient's symptoms started about 2 weeks ago when he started having some cough which was initially mild and subsequently has increased in intensity started having increasing shortness of breath and noticed to have a low pulse ox which was 83% on room air on induration and 88% at rest, for which the patient was initially seen at [facility] and subsequently the patient was transferred to [facility] ER for further evaluation, patient on presentation to the hospital was hypoxic no fevers or recorded patient did have a elevated white count with left shift and lymphopenia, patient did have normal creatinine level enzymes are mildly elevated in the D dimer of 0.[address] angiogram of chest which was limited as the patient was breathing during the test, didn't have evidence of a multifocal pneumonia, patient was admitted to the hospital and was treated with the Decadron Lovenox and ascorbic acid did have persistent worsening of his respiratory symptoms and steroids were switched over to Solu- Medrol,barcitinab was added, patient was considered to be not a candidate for Remdisivir with the patient was questioning as infectious disease was consulted for second opinion and need for Remdisivir Review of Systems Positive point has been mentioned in the HPI rest of the systems are negative Past Medical History Past Medical History: Atrial Fibrillation Additional Past Medical History / Comment(s): BPH History of Any Multi-Drug Resistant Organisms: None Reported Past Surgical History: Cholecystectomy, Hernia Repair, Joint Replacement, Orthopedic Surgery Additional Past Surgical History / Comment(s): KNEE REPLACEMENT KAYODE Past Psychological History: No Psychological Hx Reported Smoking Status: Former smoker Past Alcohol Use History: None Reported Past Drug Use History: None Reported Medications and Allergies Home Medications Medication Instructions Recorded Confirmed Type Albuterol Sulfate [Albuterol 2 puff INHALATION RT-Q4H PRN 06/02/21 06/02/21 His tory Sulfate Hfa] Ascorbic Acid [Vitamin C] 500 mg PO DAILY 06/02/21 06/02/21 History Aspirin EC [Ecotrin Low Dose] 81 mg PO DAILY 06/02/21 06/02/21 History Calcium/Magnesium/Zinc 1 tab PO DAILY 06/02/21 06/02/21 History [Yrndrws-Ikxpzmoqq-Ulao Tablet] Cholecalciferol [Vitamin D3 (25 25 mcg PO DAILY 06/02/21 06/02/21 History Mcg = 1000 Iu)] Cyanocobalamin (Vitamin B-12) 1,000 mcg PO DAILY 06/02/21 06/02/21 History [Vitamin B-12] Dexamethasone 6 mg PO DAILY 06/02/21 06/02/21 History Doxycycline Hyclate 100 mg PO BID 06/02/21 06/02/21 History Loratadine 10 mg PO DAILY 06/02/21 06/02/21 History Metoprolol Succinate (ER) [Toprol 25 mg PO DAILY 06/02/21 06/02/21 History Xl] Ondansetron Odt [Zofran Odt] 8 mg PO Q8HR PRN 06/02/21 06/02/21 History Super Beta Prostate 1 tab PO BID 06/02/21 06/02/21 History Vit C/E/Zn/Coppr/Lutein/Zeaxan 1 cap PO BID 06/02/21 06/02/21 History [Preservision Areds 2 Softgel] Zinc 100 mg PO DAILY 06/02/21 06/02/21 History Allergies Allergy/AdvReac Type Severity Reaction Status Date / Time No Known Allergies Allergy Verified 06/02/21 15:10 Physical Exam Vitals: Vital Signs Temp Pulse Resp BP Pulse Ox 06/05/21 17:01 90 L 06/05/21 14:00 98.2 F 54 L 18 126/69 93 L 06/05/21 10:06 98.1 F 83 22 131/74 93 L 06/05/21 09:30 88 L 06/05/21 05:30 97.6 F 54 L 18 143/75 96 06/05/21 02:04 98.4 F 47 L 19 143/80 91 L 06/04/21 22:29 98.3 F 57 L 19 144/79 92 L Intake and Output 06/05/21 06/05/21 06/05/21 06:59 14:59 22:59 Intake Total 600 Output Total 250 Balance 350 Intake: Intake, IV Titration 600 Amount Sodium Chloride 0.9% 1, 600 000 ml @ 75 mls/hr IV . [id number] [facility] Rx#:[id number] Output: Urine 250 Other: # Voids 4 GENERAL DESCRIPTION: Elderly male lying in bed, no distress. No tachypnea or accessory muscle of respiration use. HEENT: Shows Pallor , no scleral icterus. Oral mucous membrane is dry. No pharyngeal erythema or thrush NECK: Trachea central, no thyromegaly. LUNGS: Unlabored breathing. Coarse crackles at the bases bilaterally No wheeze or crackle. HEART: S1, S2, regular rate and rhythm. No loud murmur ABDOMEN: Soft, no tenderness , guarding or rigidity, no organomegaly EXTREMITIES: No edema of feet. SKIN: No rash, no masses palpable. NEUROLOGICAL: The patient is awake, alert, oriented x3, mood and affect normal. Results CBC & Chem 7: 06/04/21 07:45 06/04/21 07:45 Labs: Microbiology - Last 24 Hours (Table) 06/02/21 15:35 Blood Culture - Preliminary Blood No Growth after 72 hours 06/02/21 15:50 Blood Culture - Preliminary Blood No Growth after 72 hours Assessment and Plan Assessment: 1-patient presented to hospital with increasing shortness of breath hypoxemia cough in this patient did have evidence of multifocal pneumonia considering COVID-19 in this patient presented to the hospital more than 10 days after symptom onset and is considered to be out of therapeutic window for Remdisivir per [facility] policy patient also have significant hypoxemia and need for high flow oxygen, critical trial have shown last effect of Remdisivir in this patient population this has been explained to the patient in layman terms, clinically more of a cytokine storm picture and then viremic phase and no evidence of secondary bacterial pneumonia Plan: 1- no need for Remdisivir 2-continue with the Solu-Medrol , Barcitinab , Lovenox zinc and ascorbic acid 3-droplet isolation and respiratory support 4-none for systemic antibiotics therapy We will follow on clinical condition and cultures to further adjust medication if needed Thank you for this consultation will follow this patient with you Time with Patient: Greater than 30
[2021-06-06] MEDS: methylPREDNISolone SOD SUCCI 125 MG/2 ML VIAL IV SCH ×5 (00:16→23:41)
[2021-06-06] MEDS: BENZONATATE 100 MG CAP PO SCH ×4 (00:17→21:43)
[2021-06-06] MEDS: ACETAMINOPHEN TAB 325 MG TAB PO PRN ×3 (00:23→22:12)
--- NOTE | 2021-06-06 04:59 | P.PN ---
Subjective Progress Note Date: 06/05/21 This is a 75-year-old male who was recently admitted with COVID-19 infection with acute hypoxic respiratory failure and is being closely monitored. Pulmonary following closely and patient is maintained on dexamethasone along with Lovenox and vitamin and zinc supplements. Patient currently maintained on 15 L high flow via nasal cannula with supplemental use of 15 L nonrebreather. Patient states his breathing is slightly improved and not requiring a nonrebreather as often. Instructed the patient to use incentive spirometer and increase activity as tolerated. Patient continues to be extremely weak and will have PT/OT evaluate the patient once more stable. Review of systems: Constitutional: No reports of fatigue, fever, or chills Cardiovascular: No reports of chest pain or palpitations Respiratory: Reports continued shortness of breath and dry hacking cough GI: No reports of nausea, vomiting, or diarrhea : No reports of dysuria or retention Neurovascular: Reports generalized weakness All medications have been reviewed Active Medications Acetaminophen (Acetaminophen Tab 325 Mg Tab) 650 mg PO Q6HR PRN PRN Reason: Fever and/ or Mild Pain Last Admin: 06/05/21 15:11 Dose: 650 mg Documented by: Albuterol Sulfate (Albuterol Hfa Inhaler) 2 puff INHALATION RT-QID [facility] Last Admin: 06/05/21 12:37 Dose: 2 puff Documented by: Albuterol Sulfate (Albuterol Hfa Inhaler) 2 puff INHALATION RT-QID PRN PRN Reason: Shortness Of Breath Or Wheezing Ascorbic Acid (Ascorbic Acid 500 Mg Tab) 500 mg PO DAILY [facility] Last Admin: 06/05/21 08:39 Dose: 500 mg Documented by: Aspirin (Aspirin 81 Mg) 81 mg PO DAILY [facility] Last Admin: 06/05/21 08:39 Dose: 81 mg Documented by: Baricitinib (Baricitinib 2 Mg Tablet) 4 mg PO DAILY [facility] Stop: 06/17/21 09:01 Last Admin: 06/05/21 08:39 Dose: 4 mg Documented by: Benzonatate (Benzonatate 100 Mg Cap) 200 mg PO TID [facility] Last Admin: 06/05/21 15:11 Dose: 200 mg Documented by: Cholecalciferol (Cholecalciferol 25 Mcg (1000 Iu) Tablet) 25 mcg PO DAILY [facility] Last Admin: 06/05/21 08:39 Dose: 25 mcg Documented by: Cyanocobalamin (Cyanocobalamin 500 Mcg Tab) 1,000 mcg PO DAILY [facility] Last Admin: 06/05/21 08:39 Dose: 1,000 mcg Documented by: Enoxaparin Sodium (Enoxaparin 40 Mg/0.4 Ml Syringe) 40 mg SQ DAILY [facility] Last Admin: 06/05/21 08:38 Dose: 40 mg Documented by: Sodium Chloride (Saline 0.9%) 1,000 mls @ 75 mls/hr IV .[id number] [facility] Last Admin: 06/05/21 15:13 Dose: 75 mls/hr Documented by: Methylprednisolone Sodium Succinate (Methylprednisolone Sod Succi 125 Mg/2 Ml Vial) 60 mg IV Q6HR [facility] Last Admin: 06/05/21 11:13 Dose: 60 mg Documented by: Metoprolol Tartrate (Metoprolol Tartrate 25 Mg Tab) 25 mg PO DAILY [facility] Last Admin: 06/05/21 08:39 Dose: 25 mg Documented by: Ondansetron HCl (Ondansetron Odt 8 Mg Tab.Rapdis) 8 mg PO Q8HR PRN PRN Reason: Nausea And Vomiting Pantoprazole Sodium (Pantoprazole 40 Mg Tablet) 40 mg PO AC-BID [facility] Last Admin: 06/05/21 15:12 Dose: 40 mg Documented by: Zinc Sulfate (Zinc Sulfate 220 Mg Cap) 220 mg PO DAILY [facility] Last Admin: 06/05/21 08:39 Dose: 220 mg Documented by: Physical exam: Gen: This is a 75-year-old male awake, alert and oriented 3, well-developed, well-nourished, currently sitting up in the chair HEENT: Head is atraumatic, normocephalic. Pupils equal, round. Sclerae is anicteric. NECK: Supple. No JVD. No lymphadenopathy. No thyromegaly. LUNGS: Diminished breath sounds bilaterally with scattered coarse rhonchi noted No intercostal retractions. HEART: Regular rate and rhythm. No murmur. ABDOMEN: Soft. Bowel sounds are present. No masses. No tenderness. EXTREMITIES: No pedal edema. No calf tenderness. NEUROLOGICAL: Patient is awake, alert and oriented x3. Cranial nerves 2 through 12 are grossly intact. Diffusely weak Assessment: Acute COVID-19 infection with acute component of interstitial pneumonia, meera ateral with acute hypoxic respiratory failure and possible sepsis secondary to COVID-19 Lactic acidosis secondary to above Extensive interstitial bilateral COVID-19 pneumonia Elevated white blood count possibly secondary to above Possible subsegmental pulmonary embolism cannot be ruled out History of atrial fibrillation Remote history of nicotine dependence GI prophylaxis DVT prophylaxis Plan: Recommend to continue with current medications and repeat labs in the morning as no labs were available today. Continue to wean FiO2 as tolerated as patient is currently maintained on 15 L high flow along with intermittent use of nonrebreather. Patient was started on Baracitinib and was out of the window of Remdesivir. Pulmonary and infectious disease following. Patient has incentive spirometer at the bedside and instructed and encouraged the patient to continue with incentive spirometer use at least 10 times every hour while awake and increased activity as tolerated. Objective - Vital Signs Vital signs: Vital Signs Temp 97.6 F 06/05/21 05:30 Pulse 54 L 06/05/21 05:30 Resp 18 06/05/21 05:30 BP 143/75 06/05/21 05:30 Pulse Ox 96 06/05/21 05:30 Intake & Output 06/04/21 06/05/21 06/05/21 18:59 06:59 18:59 Intake Total 1080 Output Total 1300 250 Balance -220 -250 Intake: Oral 1080 Output: Urine 1300 250 Other: # Voids 4 - Labs CBC & Chem 7: 06/04/21 07:45 06/04/21 07:45 Labs: Abnormal Lab Results - Last 24 Hours (Table) 06/04/21 06/04/21 06/04/21 Range/Units 07:45 07:45 12:45 WBC 21.35 H (4.50-10.00) X 10*3/uL MCHC 31.7 L (32.0-37.0) g/dL Immature Gran # 0.33 H (0.00-0.04) X 10*3/uL Neutrophils # 18.83 H (1.80-7.70) X 10*3/uL Monocytes # 1.18 H (0.20-1.00) X 10*3/uL Eosinophils # 0 L (0.04-0.35) X 10*3/uL Anion Gap 13.30 H (4.00-12.00) mmol/L BUN/Creatinine Ratio 30.00 H (12.00-20.00) Ratio Calcium 8.1 L (8.7-10.3) mg/dL Coronavirus (PCR) Detected A (Not Detectd) Microbiology - Last 24 Hours (Table) 06/02/21 15:35 Blood Culture - Preliminary Blood No Growth after 48 hours 06/02/21 15:50 Blood Culture - Preliminary Blood No Growth after 48 hours
--- NOTE | 2021-06-06 07:48 | XR ---
EXAMINATION TYPE: XR chest 1V portable DATE OF EXAM: 06/06/2021 COMPARISON: Chest x-ray 06/03/2021 HISTORY: Covid pneumonia TECHNIQUE: Single frontal view of the chest is obtained. FINDINGS: Bilateral interstitial and airspace disease is present. No evident pneumothorax or pleural effusion. There is overlying artifact. Cardiac mediastinal silhouette is stable. IMPRESSION: Findings consistent with patient's history Covid pneumonia
[2021-06-06] MEDS: BARICITINIB 2 MG TABLET PO SCH (08:17)
[2021-06-06] MEDS: ENOXAPARIN 40 MG/0.4 ML SYRINGE SQ SCH (08:17)
[2021-06-06] MEDS: PANTOPRAZOLE 40 MG TABLET PO SCH ×2 (08:17→15:25)
[2021-06-06] MEDS: METOPROLOL TARTRATE 25 MG TAB PO SCH (08:17)
[2021-06-06] MEDS: SODIUM CHLORIDE 0.9% 1,000 ML IV SCH (08:18)
[2021-06-06] MEDS: ASPIRIN 81 MG PO SCH (08:18)
[2021-06-06] MEDS: ZINC SULFATE 220 MG CAP PO SCH (08:18)
[2021-06-06] MEDS: ASCORBIC ACID 500 MG TAB PO SCH (08:18)
[2021-06-06] MEDS: CYANOCOBALAMIN 500 MCG TAB PO SCH (08:18)
[2021-06-06] MEDS: CHOLECALCIFEROL 25 MCG (1000 IU) TABLET PO SCH (08:18)
[2021-06-06] MEDS: ALBUTEROL HFA INHALER INHALATION SCH ×4 (09:08→19:49)
[2021-06-06 10:32] LABS: Basophils # (A) 0.1 k/uL (0-0.2); Basophils % (A) 0 %; Eosinophils % (A) 0 %; HGB 15.4 gm/dL (13.0-17.5); Lymphocytes # (A) 0.5 k/uL (1.0-4.8); Lymphocytes % (A) 3 %; MCH 30.2 pg (25.0-35.0); MCHC 32.7 g/dL (31.0-37.0); MCV 92.2 fL (80.0-100.0); Mean Platelet Volume 8.4; Monocytes # (A) 0.3 k/uL (0-1.0); Monocytes % (A) 2 %; Neutrophils % (A) 94 %; Platelet Count 409 k/uL (150-450); RDW 13.4 % (11.5-15.5)
[2021-06-06 10:47] LABS: African American GFR (CKD) >90 (>60 ml/min/1.73 sqM); Anion Gap 8 mmol/L; Blood Urea Nitrogen 20 mg/dL (9-20); C Reactive Protein 6.5 mg/dL (<1.0); Calcium 8.7 mg/dL (8.4-10.2); Carbon Dioxide 21 mmol/L (22-30); Chloride 109 mmol/L (98-107); Glucose 149 mg/dL (74-99); Non-African American GFR(CKD) >90 (>60 ml/min/1.73 sqM); Sodium 138 mmol/L (137-145)
[2021-06-06 11:05] LABS: Potassium 4.5 mmol/L (3.5-5.1)
[2021-06-06 11:06] LABS: LDH 2492 U/L (313-618)
--- NOTE | 2021-06-06 15:32 | PN ---
PROGRESS NOTE DATE OF SERVICE: 06/06/2021 REASON FOR FOLLOWUP: COVID-19 pneumonia. INTERVAL HISTORY: The patient is afebrile. The patient is still requiring high-flow supplemental oxygen on a non-rebreather. The patient denies having any chest pain or any worsening cough. No vomiting. No abdominal pain or diarrhea. PHYSICAL EXAMINATION: Blood pressure 133/67, pulse of 72, temperature 97.8. He is 95% on non-rebreather. GENERAL DESCRIPTION: General description is an elderly male lying in bed in no distress. RESPIRATORY SYSTEM: Unlabored breathing. Coarse crackles at bases bilaterally. No wheeze. HEART: S1, S2. Regular rate and rhythm. ABDOMEN: Soft. No tenderness. LABS: Hemoglobin is 15.4, white count 16. BUN of 20, creatinine 0.63. DIAGNOSTIC IMPRESSION AND PLAN: Patient with acute COVID-19 pneumonia in this patient who has been out of the therapeutic window for remdesivir. Currently on Solu-Medrol and baricitinib; to continue along with zinc, ascorbic acid and Lovenox, and continue supportive care. Prognosis remains guarded. MMODL / IJN: [id number] /
--- NOTE | 2021-06-06 15:38 | P.PN ---
Subjective Progress Note Date: 06/06/21 Principal diagnosis: COVID-19 pneumonia 75-year-old male, admitted with a diagnosis of coronavirus associated pneumonia. The patient has a history of chronic atrial fibrillation. The patient apparently was seen by his primary doctor, and given antibiotics and steroids. The patient became ill with complaints of cough and shortness of breath, with fever and chills, back on May 23. Positive for coronavirus on May 24. The patient was in the [facility] emergency room yesterday, and transferred here. The patient does have a history of chronic atrial fibrillation. The patient was placed on Lovenox, Decadron, and vitamins. The patient was not a candidate for REM. The patient is non-vaccinated. Currently, we see him in room 10, in the emergency department. White count 18.92. Hemoglobin hematocrit and platelet count are all normal. D-dimer was 0.7. Sodium, potassium, chloride, CO2, anion gap, and BUN were normal. Creatinine was 0.62. Ferritin 826, ALT 119. LDH was 1075. C-reactive protein 7.7. Chest x-ray shows diffuse bilateral infiltrates. Progress note dated 06/04/2021. 75-year-old male, seen in the emergency department yesterday, the diagnosis of acute hypoxemic respiratory failure secondary to coronavirus associated [facility]. The patient also has a history of chronic atrial fibrillation. The patient was outside the window for REM. The patient's overall condition in the last couple days has worsened, and we will likely try to provide him with the monoclonal antibody against interleukin-6, LUIS. Currently, the patient is getting oxygen via 15 L high flow nasal cannula, and sometimes using a nonrebreather mask as well. There were no new labs today. Venous Doppler studies were negative. CT angiogram was essentially negative for pulmonary embolism but did show patchy bilateral infiltrates consistent with a diagnosis of coronavirus pneumonia. Progress note dated 06/05/2021. 75-year-old male, seen in the emergency department, a couple days ago. He was diagnosed with acute hypoxemic respiratory failure secondary to coronavirus associated pneumonia. He also carries with him a diagnosis of chronic atrial fibrillation. Apparently his family doctor wanted to speak to me, so I did call him on the phone today and it gave him an update. She was satisfied with the update. Currently, the patient's on 15 L high flow nasal cannula, and sometimes uses a nonrebreather mask as well. Currently, the patient is on Solu-Medrol 60 mg every 6 hours, Olumiant, Lovenox, and vitamins. Clinically, the patient is about the same as he was a yesterday. No better, and no worse. No new laboratory data today to report. The patient will have a chest x-ray tomorrow. The patient is seen today 06/06/2021 in follow-up on the regular medical floor. He is currently sitting up in a chair at the bedside. Awake and alert in no acute distress. He is still requiring 15 L high flow nasal cannula along with a nonrebreather mask. He is afebrile. Hemodynamically stable. O2 saturations in the mid 90s. Chest x-ray continues to show bilateral interstitial and airspace disease. White count 16.0. Hemoglobin 15.4. Lymphocytes 0.5. D-dimer 4.72. Sodium 138. Potassium 4.5. Creatinine 0.63. LDH 2492. C-reactive protein 6.5. He is continued on Baricitinib, Lovenox, IV Solu Medrol, vitamin supplements. Objective - Vital Signs Vital signs: Vital Signs Temp 97.8 F 06/06/21 14:00 Pulse 72 06/06/21 14:00 Resp 19 06/06/21 14:00 BP 133/67 06/06/21 14:00 Pulse Ox 95 06/06/21 14:00 Intake & Output 06/05/21 06/06/21 06/06/21 18:59 06:59 18:59 Intake Total 600 600 Output Total 250 500 250 Balance 350 -500 350 Intake: Intake, IV Titration 600 600 Amount Sodium Chloride 0.9% 1, 600 600 000 ml @ 75 mls/hr IV . [id number] [facility] Rx#:[id number] Output: Urine 250 500 250 Other: # Voids 1 # Bowel Movements 1 - Exam GENERAL EXAM: Alert, pleasant 75-year-old gentleman, on 15 L high flow nasal cannula plus nonrebreather mask, fairly comfortable in no apparent distress. HEAD: Normocephalic. EYES: Normal reaction of pupils, equal size. NOSE: Clear with pink turbinates. THROAT: No erythema or exudates. NECK: No masses, no JVD. CHEST: No chest wall deformity. LUNGS: Equal air entry with crackles in the bilateral bases. CVS: S1 and S2 normal with no audible murmur, regular rhythm. ABDOMEN: No hepatosplenomegaly, normal bowel sounds, no guarding or rigidity. SPINE: No scoliosis or deformity SKIN: No rashes CENTRAL NERVOUS SYSTEM: No focal deficits, tone is normal in all 4 extremities. EXTREMITIES: There is no peripheral edema. No clubbing, no cyanosis. Peripheral pulses are intact. - Labs CBC & Chem 7: 06/06/21 09:48 06/06/21 09:48 Labs: Abnormal Lab Results - Last 24 Hours (Table) 06/06/21 06/06/21 06/06/21 Range/Units 09:48 09:48 09:48 WBC 16.0 H (3.8-10.6) k/uL Neutrophils # 15.0 H (1.3-7.7) k/uL Lymphocytes # 0.5 L (1.0-4.8) k/uL D-Dimer 4.72 H (<0.60) mg/L FEU Chloride 109 H (98-107) mmol/L Carbon Dioxide 21 L (22-30) mmol/L Creatinine 0.63 L (0.66-1.25) mg/dL Glucose 149 H (74-99) mg/dL Lactate Dehydrogenase 2492 H (313-618) U/L C-Reactive Protein 6.5 H (<1.0) mg/dL Microbiology - Last 24 Hours (Table) 06/02/21 15:35 Blood Culture - Preliminary Blood No Growth after 72 hours 06/02/21 15:50 Blood Culture - Preliminary Blood No Growth after 72 hours Assessment and Plan Assessment: 1 Acute hypoxemic respiratory failure secondary to an acute COVID-19 pneumonia, on Baricitinib 2 History of chronic atrial fibrillation Plan: The patient was seen and evaluated by Dr. Paris Chest x-ray and labs reviewed Continue Baricitinib, IV Solu-Medrol, Lovenox, vitamin supplements We will continue to follow I, the cosigning physician, performed a history & physical examination of the patient. Lungs sounds with bibasilar crackles Maintaining good O2 saturations in the 90s on 15 L high flow plus nonrebreather mask. I discussed the ass essment and plan of care with my nurse practitioner, Mar Ruelas. I attest to the above note as dictated by her.
--- NOTE | 2021-06-06 15:45 | P.PN ---
Subjective Progress Note Date: 06/06/21 This is a 75-year-old male who was recently admitted with COVID-19 infection with acute hypoxic respiratory failure and is being closely monitored. Pulmonary following closely and patient is maintained on dexamethasone along with Lovenox and vitamin and zinc supplements. Patient currently maintained on 15 L high flow via nasal cannula with supplemental use of 15 L nonrebreather. Patient states his breathing is slightly improved and not requiring a nonrebreather as often. Instructed the patient to use incentive spirometer and increase activity as tolerated. Patient continues to be extremely weak and will have PT/OT evaluate the patient once more stable. 06/06/2021 Patient is seen in follow-up this morning states his shortness of breath has slightly worsened and his recovery time and working to breathe has become more difficult. Patient is continued on 15 L high flow along with nonrebreather intermittently and having to use it more frequently today he states. Incentive spirometer at the bedside and instructed the patient to continue to use at least 10 times every hour while awake and encouraged increased activity as tolerated. Patient states he walked to the bathroom with assistance and became extremely dyspneic. Patient is afebrile. D-dimer is 4.72 with a WBC of 16 and hemoglobin is stable at 15.4. Sodium is 138 with a potassium of 4.5 and current creatinine is 0.63. LDH is elevated at 2492 and CRP is 6.5. Chest x-ray today shows findings consistent with COVID-19 pneumonia with bilateral interstitial and airspace disease present. Review of systems: Constitutional: No reports of fatigue, fever, or chills Cardiovascular: No reports of chest pain or palpitations Respiratory: Reports continued shortness of breath and dry hacking cough with worsening dyspnea today GI: No reports of nausea, vomiting, or diarrhea : No reports of dysuria or retention Neurovascular: Reports generalized weakness Active Medications Acetaminophen (Acetaminophen Tab 325 Mg Tab) 650 mg PO Q6HR PRN PRN Reason: Fever and/ or Mild Pain Last Admin: 06/06/21 15:26 Dose: 650 mg Documented by: Albuterol Sulfate (Albuterol Hfa Inhaler) 2 puff INHALATION RT-QID [facility] Last Admin: 06/06/21 12:05 Dose: 2 puff Documented by: Albuterol Sulfate (Albuterol Hfa Inhaler) 2 puff INHALATION RT-QID PRN PRN Reason: Shortness Of Breath Or Wheezing Ascorbic Acid (Ascorbic Acid 500 Mg Tab) 500 mg PO DAILY [facility] Last Admin: 06/06/21 08:18 Dose: 500 mg Documented by: Aspirin (Aspirin 81 Mg) 81 mg PO DAILY [facility] Last Admin: 06/06/21 08:18 Dose: 81 mg Documented by: Baricitinib (Baricitinib 2 Mg Tablet) 4 mg PO DAILY [facility] Stop: 06/17/21 09:01 Last Admin: 06/06/21 08:17 Dose: 4 mg Documented by: Benzonatate (Benzonatate 100 Mg Cap) 200 mg PO TID [facility] Last Admin: 06/06/21 15:24 Dose: 200 mg Documented by: Cholecalciferol (Cholecalciferol 25 Mcg (1000 Iu) Tablet) 25 mcg PO DAILY [facility] Last Admin: 06/06/21 08:18 Dose: 25 mcg Documented by: Cyanocobalamin (Cyanocobalamin 500 Mcg Tab) 1,000 mcg PO DAILY [facility] Last Admin: 06/06/21 08:18 Dose: 1,000 mcg Documented by: Enoxaparin Sodium (Enoxaparin 40 Mg/0.4 Ml Syringe) 40 mg SQ DAILY [facility] Last Admin: 06/06/21 08:17 Dose: 40 mg Documented by: Methylprednisolone Sodium Succinate (Methylprednisolone Sod Succi 125 Mg/2 Ml Vial) 60 mg IV Q6HR [facility] Last Admin: 06/06/21 11:47 Dose: 60 mg Documented by: Metoprolol Tartrate (Metoprolol Tartrate 25 Mg Tab) 25 mg PO DAILY [facility] Last Admin: 06/06/21 08:17 Dose: 25 mg Documented by: Ondansetron HCl (Ondansetron Odt 8 Mg Tab.Rapdis) 8 mg PO Q8HR PRN PRN Reason: Nausea And Vomiting Pantoprazole Sodium (Pantoprazole 40 Mg Tablet) 40 mg PO AC-BID [facility] Last Admin: 06/06/21 15:25 Dose: 40 mg Documented by: Zinc Sulfate (Zinc Sulfate 220 Mg Cap) 220 mg PO DAILY [facility] Last Admin: 06/06/21 08:18 Dose: 220 mg Documented by: Physical exam: Gen: This is a 75-year-old male awake, alert and oriented 3, well-developed, well-nourished, currently sitting up in the chair HEENT: Head is atraumatic, normocephalic. Pupils equal, round. Sclerae is anicteric. NECK: Supple. No JVD. No lymphadenopathy. No thyromegaly. LUNGS: Diminished breath sounds bilaterally with scattered coarse rhonchi noted. No intercostal retractions. HEART: Regular rate and rhythm. No murmur. ABDOMEN: Soft. Bowel sounds are present. No masses. No tenderness. EXTREMITIES: No pedal edema. No calf tenderness. NEUROLOGICAL: Patient is awake, alert and oriented x3. Cranial nerves 2 through 12 are grossly intact. Diffusely weak Assessment: Acute COVID-19 infection with acute component of interstitial pneumonia, bilateral with acute hypoxic respiratory failure and possible sepsis secondary to COVID-19 Lactic acidosis secondary to above Extensive interstitial bilateral COVID-19 pneumonia Elevated white blood count possibly secondary to above Possible subsegmental pulmonary embolism cannot be ruled out History of atrial fibrillation Remote history of nicotine dependence GI prophylaxis: Protonix DVT prophylaxis: subcutaneous Lovenox Plan: Recommend to continue with current medications and continue with inhalers, IV steroids, lovenox, and vitamin supplements. Continue to wean FiO2 as tolerated as patient is currently maintained on 15 L high flow along with intermittent use of nonrebreather. Patient receiving Baracitinib. Pulmonary and infectious disease following. Patient has incentive spirometer at the bedside and instructed and encouraged the patient to continue with incentive spirometer use at least 10 times every hour while awake and increased activity as tolerated. Objective - Vital Signs Vital signs: Vital Signs Temp 97.9 F 06/06/21 06:43 Pulse 83 06/06/21 06:43 Resp 20 06/06/21 06:43 BP 170/84 06/06/21 06:43 Pulse Ox 90 L 06/06/21 06:43 Intake & Output 06/05/21 06/06/21 06/06/21 18:59 06:59 18:59 Intake Total 600 Output Total 250 500 250 Balance 350 -500 -250 Intake: Intake, IV Titration 600 Amount Sodium Chloride 0.9% 1, 600 000 ml @ 75 mls/hr IV . [id number] [facility] Rx#:[id number] Output: Urine 250 500 250 Other: # Voids 1 # Bowel Movements 1 - Labs CBC & Chem 7: 06/06/21 09:48 06/06/21 09:48 Labs: Microbiology - Last 24 Hours (Table) 06/02/21 15:35 Blood Culture - Preliminary Blood No Growth after 72 hours 06/02/21 15:50 Blood Culture - Preliminary Blood No Growth after 72 hours
[2021-06-07] MEDS: methylPREDNISolone SOD SUCCI 125 MG/2 ML VIAL IV SCH ×3 (05:30→17:16)
[2021-06-07 06:40] LABS: ALT 97 U/L (4-49); AST 58 U/L (17-59); African American GFR (CKD) >90 (>60 ml/min/1.73 sqM); Alkaline Phosphatase 134 U/L (38-126); Anion Gap 9 mmol/L; Blood Urea Nitrogen 28 mg/dL (9-20); Calcium 8.8 mg/dL (8.4-10.2); Carbon Dioxide 23 mmol/L (22-30); Chloride 106 mmol/L (98-107); Globulin 3.1 g/dL; Glucose 131 mg/dL (74-99); Non-African American GFR(CKD) 89 (>60 ml/min/1.73 sqM); Potassium 4.4 mmol/L (3.5-5.1); Sodium 138 mmol/L (137-145); Total Bilirubin 0.8 mg/dL (0.2-1.3); Total Protein 6.1 g/dL (6.3-8.2)
[2021-06-07] MEDS: ALBUTEROL HFA INHALER INHALATION SCH ×5 (08:01→19:54)
[2021-06-07] MEDS: BENZONATATE 100 MG CAP PO SCH ×3 (08:23→21:58)
[2021-06-07] MEDS: ZINC SULFATE 220 MG CAP PO SCH (08:23)
[2021-06-07] MEDS: CHOLECALCIFEROL 25 MCG (1000 IU) TABLET PO SCH (08:23)
[2021-06-07] MEDS: PANTOPRAZOLE 40 MG TABLET PO SCH ×2 (08:23→15:47)
[2021-06-07] MEDS: ASPIRIN 81 MG PO SCH (08:23)
[2021-06-07] MEDS: BARICITINIB 2 MG TABLET PO SCH (08:23)
[2021-06-07] MEDS: ENOXAPARIN 40 MG/0.4 ML SYRINGE SQ SCH (08:23)
[2021-06-07] MEDS: ASCORBIC ACID 500 MG TAB PO SCH (08:23)
[2021-06-07] MEDS: CYANOCOBALAMIN 500 MCG TAB PO SCH (08:23)
[2021-06-07] MEDS: METOPROLOL TARTRATE 25 MG TAB PO SCH (08:23)
--- NOTE | 2021-06-07 12:16 | P.PN ---
Subjective Progress Note Date: 06/07/21 Principal diagnosis: COVID-19 pneumonia 75-year-old male, admitted with a diagnosis of coronavirus associated pneumonia. The patient has a history of chronic atrial fibrillation. The patient apparently was seen by his primary doctor, and given antibiotics and steroids. The patient became ill with complaints of cough and shortness of breath, with fever and chills, back on May 23. Positive for coronavirus on May 24. The patient was in the [facility] emergency room yesterday, and transferred here. The patient does have a history of chronic atrial fibrillation. The patient was placed on Lovenox, Decadron, and vitamins. The patient was not a candidate for REM. The patient is non-vaccinated. Currently, we see him in room 10, in the emergency department. White count 18.92. Hemoglobin hematocrit and platelet count are all normal. D-dimer was 0.7. Sodium, potassium, chloride, CO2, anion gap, and BUN were normal. Creatinine was 0.62. Ferritin 826, ALT 119. LDH was 1075. C-reactive protein 7.7. Chest x-ray shows diffuse bilateral infiltrates. Progress note dated 06/04/2021. 75-year-old male, seen in the emergency department yesterday, the diagnosis of acute hypoxemic respiratory failure secondary to coronavirus associated pne [facility]. The patient also has a history of chronic atrial fibrillation. The patient was outside the window for REM. The patient's overall condition in the last couple days has worsened, and we will likely try to provide him with the monoclonal antibody against interleukin-6, LUIS. Currently, the patient is getting oxygen via 15 L high flow nasal cannula, and sometimes using a nonrebreather mask as well. There were no new labs today. Venous Doppler studies were negative. CT angiogram was essentially negative for pulmonary embolism but did show patchy bilateral infiltrates consistent with a diagnosis of coronavirus pneumonia. Progress note dated 06/05/2021. 75-year-old male, seen in the emergency department, a couple days ago. He was diagnosed with acute hypoxemic respiratory failure secondary to coronavirus associated pneumonia. He also carries with him a diagnosis of chronic atrial fibrillation. Apparently his family doctor wanted to speak to me, so I did call him on the phone today and it gave him an update. She was satisfied with the update. Currently, the patient's on 15 L high flow nasal cannula, and sometimes uses a nonrebreather mask as well. Currently, the patient is on Solu-Medrol 60 mg every 6 hours, Olumiant, Lovenox, and vitamins. Clinically, the patient is about the same as he was a yesterday. No better, and no worse. No new laboratory data today to report. The patient will have a chest x-ray tomorrow. The patient is seen today 06/06/2021 in follow-up on the regular medical floor. He is currently sitting up in a chair at the bedside. Awake and alert in no acute distress. He is still requiring 15 L high flow nasal cannula along with a nonrebreather mask. He is afebrile. Hemodynamically stable. O2 saturations in the mid 90s. Chest x-ray continues to show bilateral interstitial and airspace disease. White count 16.0. Hemoglobin 15.4. Lymphocytes 0.5. D-dimer 4.72. Sodium 138. Potassium 4.5. Creatinine 0.63. LDH 2492. C-reactive protein 6.5. He is continued on Baricitinib, Lovenox, IV Solu Medrol, vitamin supplements. The patient is seen today 06/07/2021 in follow-up on the regular medical floor. He is currently sitting up in a chair at the bedside. Still quite dyspneic with minimal exertion. He is currently on 2 L high flow nasal cannula along with a nonrebreather mask. O2 saturation in the high 80s low 90s. He is afebrile. Sodium 138. Potassium 4.4. Creatinine 0.79. Glucose 131. Pro-calcitonin 0.08. He is continued on Baricitinib, Lovenox, IV Solu-Medrol, vitamin supplements. Objective - Vital Signs Vital signs: Vital Signs Temp 98.5 F 06/07/21 09:27 Pulse 65 06/07/21 09:27 Resp 19 06/07/21 09:27 BP 146/94 06/07/21 09:27 Pulse Ox 94 L 06/07/21 09:27 Intake & Output 06/06/21 06/07/21 06/07/21 18:59 06:59 18:59 Intake Total 600 Output Total 250 550 Balance 350 -550 Intake: Intake, IV Titration 600 Amount Sodium Chloride 0.9% 1, 600 000 ml @ 75 mls/hr IV . [id number] [facility] Rx#:[id number] Output: Urine 250 550 Other: # Voids 1 # Bowel Movements 1 - Exam GENERAL EXAM: Alert, pleasant 75-year-old gentleman, on 15 L high flow nasal cannula plus nonrebreather mask, fairly comfortable in mild respiratory distress. HEAD: Normocephalic. EYES: Normal reaction of pupils, equal size. NOSE: Clear with pink turbinates. THROAT: No erythema or exudates. NECK: No masses, no JVD. CHEST: No chest wall deformity. LUNGS: Equal air entry with crackles in the bilateral bases. CVS: S1 and S2 normal with no audible murmur, regular rhythm. ABDOMEN: No hepatosplenomegaly, normal bowel sounds, no guarding or rigidity. SPINE: No scoliosis or deformity SKIN: No rashes CENTRAL NERVOUS SYSTEM: No focal deficits, tone is normal in all 4 extremities. EXTREMITIES: There is no peripheral edema. No clubbing, no cyanosis. Peripheral pulses are intact. - Labs CBC & Chem 7: 06/06/21 09:48 06/07/21 05:49 Labs: Abnormal Lab Results - Last 24 Hours (Table) 06/07/21 Range/Units 05:49 BUN 28 H (9-20) mg/dL Glucose 131 H (74-99) mg/dL ALT 97 H (4-49) U/L Alkaline Phosphatase 134 H (38-126) U/L Total Protein 6.1 L (6.3-8.2) g/dL Albumin 3.0 L (3.5-5.0) g/dL Microbiology - Last 24 Hours (Table) 06/02/21 15:50 Blood Culture - Preliminary Blood No Growth after 96 hours 06/02/21 15:35 Blood Culture - Preliminary Blood No Growth after 96 hours Assessment and Plan Assessment: 1 Acute hypoxemic respiratory failure secondary to an acute COVID-19 pneumonia, on Baricitinib 2 History of chronic atrial fibrillation Plan: The patient was seen and evaluated by Dr. Paris Continue Baricitinib, IV Solu-Medrol, Lovenox, vitamin supplements Titrate the FiO2 as tolerated Chest x-ray and labs in a.m. Prognosis remains guarded We will continue to follow I, the cosigning physician, performed a history & physical examination of the patient. Lungs sounds with bibasilar crackles Maintaining O2 saturations in the 80s and low 90s on 15 L high flow plus nonrebreather mask. I discussed the assessment and plan of care with my nurse practitioner, Mar Ruelas. I attest to the above note as dictated by her.
--- NOTE | 2021-06-07 13:51 | PN ---
PROGRESS NOTE DATE OF SERVICE: 06/07/2021 REASON FOR FOLLOWUP: COVID-19 pneumonia. INTERVAL HISTORY: Patient is afebrile. The patient is still requiring non-rebreather to maintain his sats. The patient denies having any chest pain, cough but no worsening. No abdominal pain or diarrhea. PHYSICAL EXAMINATION: Blood pressure 146/94 with a pulse of 65, temperature 98.5. He is 94% on non- rebreather. General description is an elderly male up in the bed in no distress. Respiratory system: Unlabored breathing with crackles at bilateral bases. No wheeze. Heart S1-S2 regular rate and rhythm. Abdomen soft, no tenderness. Extremities: No edema of the feet. LABS: Hemoglobin is no CBC was done today. BUN of 28, creatinine 0.79. DIAGNOSTIC PATIENT: This patient with acute Covid 19 pneumonia in this patient who did have minimal clinical improvement. The patient is currently on and Solu-Medrol, zinc and ascorbic acid to continue, now with respiratory support and monitor clinical course closely. MMODL / IJN: [id number] /
[2021-06-08] MEDS: methylPREDNISolone SOD SUCCI 125 MG/2 ML VIAL IV SCH ×4 (01:18→16:47)
--- NOTE | 2021-06-08 05:59 | P.PN ---
Subjective Progress Note Date: 06/07/21 This is a 75-year-old male who was recently admitted with COVID-19 infection with acute hypoxic respiratory failure and is being closely monitored. Pulmonary following closely and patient is maintained on dexamethasone along with Lovenox and vitamin and zinc supplements. Patient currently maintained on 15 L high flow via nasal cannula with supplemental use of 15 L nonrebreather. Patient states his breathing is slightly improved and not requiring a nonrebreather as often. Instructed the patient to use incentive spirometer and increase activity as tolerated. Patient continues to be extremely weak and will have PT/OT evaluate the patient once more stable. 06/06/2021 Patient is seen in follow-up this morning states his shortness of breath has slightly worsened and his recovery time and working to breathe has become more difficult. Patient is continued on 15 L high flow along with nonrebreather intermittently and having to use it more frequently today he states. Incentive spirometer at the bedside and instructed the patient to continue to use at least 10 times every hour while awake and encouraged increased activity as tolerated. Patient states he walked to the bathroom with assistance and became extremely dyspneic. Patient is afebrile. D-dimer is 4.72 with a WBC of 16 and hemoglobin is stable at 15.4. Sodium is 138 with a potassium of 4.5 and current creatinine is 0.63. LDH is elevated at 2492 and CRP is 6.5. Chest x-ray today shows findings consistent with COVID-19 pneumonia with bilateral interstitial and airspace disease present. 06/07/2021 Patient is seen and evaluated in follow up this morning and is having increasing shortness of breath and on 15L high flow via NC and 15 L non-rebreather. Patient has been back in bed and attempting position changes frequently along with prone position. Patient continues on lovenox, baracitinib, vitamin and zinc supplement s,and steroids. Pulmonary following closely. Review of systems: Constitutional: reports of fatigue, no reports of fever, or chills Cardiovascular: No reports of chest pain or palpitations Respiratory: Reports continued shortness of breath and dry hacking cough with worsening dyspnea today GI: No reports of nausea, vomiting, or diarrhea : No reports of dysuria or retention Neurovascular: Reports generalized weakness Active Medications Acetaminophen (Acetaminophen Tab 325 Mg Tab) 650 mg PO Q6HR PRN PRN Reason: Fever and/ or Mild Pain Last Admin: 06/06/21 22:12 Dose: 650 mg Documented by: Albuterol Sulfate (Albuterol Hfa Inhaler) 2 puff INHALATION RT-QID [facility] Last Admin: 06/07/21 19:54 Dose: 2 puff Documented by: Albuterol Sulfate (Albuterol Hfa Inhaler) 2 puff INHALATION RT-QID PRN PRN Reason: Shortness Of Breath Or Wheezing Ascorbic Acid (Ascorbic Acid 500 Mg Tab) 500 mg PO DAILY [facility] Last Admin: 06/07/21 08:23 Dose: 500 mg Documented by: Aspirin (Aspirin 81 Mg) 81 mg PO DAILY [facility] Last Admin: 06/07/21 08:23 Dose: 81 mg Documented by: Baricitinib (Baricitinib 2 Mg Tablet) 4 mg PO DAILY [facility] Stop: 06/17/21 09:01 Last Admin: 06/07/21 08:23 Dose: 4 mg Documented by: Benzonatate (Benzonatate 100 Mg Cap) 200 mg PO TID [facility] Last Admin: 06/07/21 21:58 Dose: 200 mg Documented by: Cholecalciferol (Cholecalciferol 25 Mcg (1000 Iu) Tablet) 25 mcg PO DAILY [facility] Last Admin: 06/07/21 08:23 Dose: 25 mcg Documented by: Cyanocobalamin (Cyanocobalamin 500 Mcg Tab) 1,000 mcg PO DAILY [facility] Last Admin: 06/07/21 08:23 Dose: 1,000 mcg Documented by: Enoxaparin Sodium (Enoxaparin 40 Mg/0.4 Ml Syringe) 40 mg SQ DAILY [facility] Last Admin: 06/07/21 08:23 Dose: 40 mg Documented by: Methylprednisolone Sodium Succinate (Methylprednisolone Sod Succi 125 Mg/2 Ml Vial) 60 mg IV Q6HR [facility] Last Admin: 06/08/21 01:18 Dose: 60 mg Documented by: Metoprolol Tartrate (Metoprolol Tartrate 25 Mg Tab) 25 mg PO DAILY [facility] Last Admin: 06/07/21 08:23 Dose: 25 mg Documented by: Ondansetron HCl (Ondansetron Odt 8 Mg Tab.Rapdis) 8 mg PO Q8HR PRN PRN Reason: Nausea And Vomiting Pantoprazole Sodium (Pantoprazole 40 Mg Tablet) 40 mg PO AC-BID [facility] Last Admin: 06/07/21 15:47 Dose: 40 mg Documented by: Zinc Sulfate (Zinc Sulfate 220 Mg Cap) 220 mg PO DAILY [facility] Last Admin: 06/07/21 08:23 Dose: 220 mg Documented by: Physical exam: Gen: This is a 75-year-old male awake, alert and oriented 3, well-developed, well-nourished, currently lying on his right side, on 15 L HF and non- rebreather HEENT: Head is atraumatic, normocephalic. Pupils equal, round. Sclerae is anicteric. NECK: Supple. No JVD. No lymphadenopathy. No thyromegaly. LUNGS: Diminished breath sounds bilaterally with scattered coarse rhonchi noted. No intercostal retractions. HEART: Regular rate and rhythm. No murmur. ABDOMEN: Soft. Bowel sounds are present. No masses. No tenderness. EXTREMITIES: No pedal edema. No calf tenderness. NEUROLOGICAL: Patient is awake, alert and oriented x3. Cranial nerves 2 through 12 are grossly intact. Diffusely weak Assessment: Acute COVID-19 infection with acute component of interstitial pneumonia, bilateral with acute hypoxic respiratory failure and possible sepsis secondary to COVID-19 Lactic acidosis secondary to above Extensive interstitial bilateral COVID-19 pneumonia Elevated white blood count possibly secondary to above Possible subsegmental pulmonary embolism cannot be ruled out History of atrial fibrillation Remote history of nicotine dependence GI prophylaxis: Protonix DVT prophylaxis: subcutaneous Lovenox Plan: Recommend to continue with current medications and continue with inhalers, IV steroids, lovenox, and vitamin supplements. Continue to wean FiO2 as tolerated as patient is currently maintained on 15 L high flow along with continued use of nonrebreather today. Patient receiving Baracitinib. Pulmonary and infectious disease following. Patient has incentive spirometer at the bedside and instructed and encouraged the patient to continue with incentive spirometer use at least 10 times every hour while awake and increased activity as tolerated. Patient also encouraged position changes and proning while in bed. Prognosis is guarded. Objective - Vital Signs Vital signs: Vital Signs Temp 97.5 F L 06/07/21 06:22 Pulse 84 06/07/21 06:22 Resp 19 06/07/21 06:22 BP 154/86 06/07/21 06:22 Pulse Ox 91 L 06/07/21 08:01 Intake & Output 06/06/21 06/07/21 06/07/21 18:59 06:59 18:59 Intake Total 600 Output Total 250 550 Balance 350 -550 Intake: Intake, IV Titration 600 Amount Sodium Chloride 0.9% 1, 600 000 ml @ 75 mls/hr IV . [id number] [facility] Rx#:[id number] Output: Urine 250 550 Other: # Voids 1 # Bowel Movements 1 - Labs CBC & Chem 7: 06/06/21 09:48 06/07/21 05:49 Labs: Abnormal Lab Results - Last 24 Hours (Table) 06/06/21 06/06/21 06/06/21 Range/Units 09:48 09:48 09:48 WBC 16.0 H (3.8-10.6) k/uL Neutrophils # 15.0 H (1.3-7.7) k/uL Lymphocytes # 0.5 L (1.0-4.8) k/uL D-Dimer 4.72 H (<0.60) mg/L FEU Chloride 109 H (98-107) mmol/L Carbon Dioxide 21 L (22-30) mmol/L BUN (9-20) mg/dL Creatinine 0.63 L (0.66-1.25) mg/dL Glucose 149 H (74-99) mg/dL ALT (4-49) U/L Alkaline Phosphatase (38-126) U/L Lactate Dehydrogenase 2492 H (313-618) U/L C-Reactive Protein 6.5 H (<1.0) mg/dL Total Protein (6.3-8.2) g/dL Albumin (3.5-5.0) g/dL 06/07/21 Range/Units 05:49 WBC (3.8-10.6) k/uL Neutrophils # (1.3-7.7) k/uL Lymphocytes # (1.0-4.8) k/uL D-Dimer (<0.60) mg/L FEU Chloride (98-107) mmol/L Carbon Dioxide (22-30) mmol/L BUN 28 H (9-20) mg/dL Creatinine (0.66-1.25) mg/dL Glucose 131 H (74-99) mg/dL ALT 97 H (4-49) U/L Alkaline Phosphatase 134 H (38-126) U/L Lactate Dehydrogenase (313-618) U/L C-Reactive Protein (<1.0) mg/dL Total Protein 6.1 L (6.3-8.2) g/dL Albumin 3.0 L (3.5-5.0) g/dL Microbiology - Last 24 Hours (Table) 06/02/21 15:50 Blood Culture - Preliminary Blood No Growth after 96 hours 06/02/21 15:35 Blood Culture - Preliminary Blood No Growth after 96 hours
--- NOTE | 2021-06-08 07:06 | XR ---
EXAMINATION TYPE: XR chest 1V portable DATE OF EXAM: 06/08/2021 HISTORY: Shortness of breath. COMPARISON: 06/06/2021 TECHNIQUE: Single view of the chest is submitted. FINDINGS: Demonstrated are scattered senescent parenchymal change. Reticulonodular infiltrates persist throughout both lung de la torre. The heart is stable. Hilar and mediastinal structures are within normal limits. Degenerative changes are seen of the dorsal spine. IMPRESSION: 1. Reticulonodular infiltrates persist throughout both lung de la torre.
[2021-06-08] MEDS: ALBUTEROL HFA INHALER INHALATION SCH ×5 (08:54→21:21)
[2021-06-08] MEDS: BENZONATATE 100 MG CAP PO SCH ×3 (09:24→19:55)
[2021-06-08] MEDS: ENOXAPARIN 40 MG/0.4 ML SYRINGE SQ SCH (09:24)
[2021-06-08] MEDS: METOPROLOL TARTRATE 25 MG TAB PO SCH (09:24)
[2021-06-08] MEDS: ASPIRIN 81 MG PO SCH (09:24)
[2021-06-08] MEDS: BARICITINIB 2 MG TABLET PO SCH (09:25)
[2021-06-08] MEDS: CHOLECALCIFEROL 25 MCG (1000 IU) TABLET PO SCH (09:25)
[2021-06-08] MEDS: PANTOPRAZOLE 40 MG TABLET PO SCH ×2 (09:25→16:48)
[2021-06-08] MEDS: CYANOCOBALAMIN 500 MCG TAB PO SCH (09:26)
[2021-06-08] MEDS: ASCORBIC ACID 500 MG TAB PO SCH (09:26)
[2021-06-08] MEDS: ZINC SULFATE 220 MG CAP PO SCH (09:26)
[2021-06-08] MEDS: ACETAMINOPHEN TAB 325 MG TAB PO PRN ×2 (11:19→19:55)
[2021-06-08] MEDS: ALPRAZolam 0.25 MG TAB PO PRN ×2 (11:34→19:55)
--- NOTE | 2021-06-08 14:12 | P.PN ---
Subjective Progress Note Date: 06/08/21 Principal diagnosis: Shortness of breath, coronavirus pneumonia. Pulmonary consult dated 06/03/2021. 75-year-old male, admitted with a diagnosis of coronavirus associated pneumonia. The patient has a history of chronic atrial fibrillation. The patient apparently was seen by his primary doctor, and given antibiotics and steroids. The patient became ill with complaints of cough and shortness of breath, with fever and chills, back on May 23. Positive for coronavirus on May 24. The patient was in the [facility] emergency room yesterday, and transferred here. The patient does have a history of chronic atrial fibrillation. The patient was placed on Lovenox, Decadron, and vitamins. The patient was not a candidate for REM. The patient is non-vaccinated. Currently, we see him in room 10, in the emergency department. White count 18.92. Hemo globin hematocrit and platelet count are all normal. D-dimer was 0.7. Sodium, potassium, chloride, CO2, anion gap, and BUN were normal. Creatinine was 0.62. Ferritin 826, ALT 119. LDH was 1075. C-reactive protein 7.7. Chest x-ray shows diffuse bilateral infiltrates. Progress note dated 06/04/2021. 75-year-old male, seen in the emergency department yesterday, the diagnosis of acute hypoxemic respiratory failure secondary to coronavirus associated pneumonia. The patient also has a history of chronic atrial fibrillation. The patient was outside the window for REM. The patient's overall condition in the last couple days has worsened, and we will likely try to provide him with the monoclonal antibody against interleukin-6, LUIS. Currently, the patient is getting oxygen via 15 L high flow nasal cannula, and sometimes using a nonrebreather mask as well. There were no new labs today. Venous Doppler studies were negative. CT angiogram was essentially negative for pulmonary embolism but did show patchy bilateral infiltrates consistent with a diagnosis of coronavirus pneumonia. Progress note dated 06/05/2021. 75-year-old male, seen in the emergency department, a couple days ago. He was diagnosed with acute hypoxemic respiratory failure secondary to coronavirus associated pneumonia. He also carries with him a diagnosis of chronic atrial fibrillation. Apparently his family doctor wanted to speak to me, so I did call him on the phone today and it gave him an update. She was satisfied with the update. Currently, the patient's on 15 L high flow nasal cannula, and sometimes uses a nonrebreather mask as well. Currently, the patient is on Solu-Medrol 60 mg every 6 hours, Olumiant, Lovenox, and vitamins. Clinically, the patient is about the same as he was a yesterday. No better, and no worse. No new laboratory data today to report. The patient will have a chest x-ray tomorrow. Progress note dated 06/08/2021. 75-year-old male, seen in consultation on June 03. He was admitted with a diagnosis of coronavirus associated pneumonia and acute hypoxemic respiratory failure. Currently, the patient is using 15 L high flow nasal cannula, along with a nonrebreather mask, from time to time. In addition to the above, he has a diagnosis of chronic atrial fibrillation. His chest x-ray today shows diffuse bilateral reticular nodular infiltrates which persist. D-dimer today is 10.21. CT angiogram and Dopplers of lower extremities done earlier, were negative for clot. Objective - Vital Signs Vital signs: Vital Signs Temp 97.5 F L 06/08/21 10:19 Pulse 76 06/08/21 10:19 Resp 17 06/08/21 10:19 BP 139/74 06/08/21 10:19 Pulse Ox 89 L 06/08/21 09:35 Intake & Output 06/07/21 06/08/21 06/08/21 18:59 06:59 18:59 Intake Total 1560 Output Total 1450 980 210 Balance -1450 580 -210 Intake: Oral 1560 Output: Urine 1450 980 210 Other: Voiding Method Urinal # Voids 4 2 # Bowel Movements 0 - Exam Mild respiratory distress, oriented 3. Currently on nasal O2 at 15 L. Also using a nonrebreather mass. Mild conversational dyspnea, and no use of accessory muscles. HEENT examination is grossly unremarkable. Neck supple. Full range of motion. No adenopathy thyromegaly or neck vein distention. Cardiovascular examination reveals regular rhythm rate. S1-S2 normal. No S3 or S4. No discernible murmur noted. Heart rate 76 bpm. Heart sounds are distant. Lungs reveal coarse bilateral rhonchi. No wheezes or crackles. Breath sounds equal bilaterally. Saturations are 95 % on 15 L high flow nasal cannula. Abdomen soft bowel sounds are heard. No masses or tenderness. Extremities are intact. No cyanosis clubbing or edema. Skin is without rash or lesion. Neurologic examination is brief but nonfocal. - Labs CBC & Chem 7: 06/06/21 09:48 06/07/21 05:49 Labs: Abnormal Lab Results - Last 24 Hours (Table) 06/08/21 Range/Units 08:04 D-Dimer 10.21 H (<0.60) mg/L FEU Microbiology - Last 24 Hours (Table) 06/02/21 15:50 Blood Culture - Preliminary Blood No Growth after 120 hours 06/02/21 15:35 Blood Culture - Preliminary Blood No Growth after 120 hours Assessment and Plan Assessment: Acute hypoxemic respiratory failure secondary to coronavirus associated pneumonia. History of chronic atrial fibrillation. Plan: Plan dated 06/03/2021. The patient is not a candidate for REM. The patient is not sick enough to receive a monoclonal antibody against interleukin-6. The patient should be on Lovenox, Decadron, and vitamins. We recommend oxygen therapy. We also recommend the patient move about in bed, right side down, left side down, supine, and prone if possible. Additional recommendations and suggestions are forthcoming. No need for antibiotics at this time. A pro-calcitonin level was ordered. Plan dated 06/04/2021. The patient's on appropriate medications. The patient was not a candidate for REM. We did order the monoclonal antibody against interleukin-6. The patient should be on Decadron, Lovenox, and vitamins. We've asked him to move about in bed, right side down, left side down, supine and prone. CT angiogram was negative for PE. Medications are reviewed. Prognosis is guarded. Additional recommendations and suggestions are forthcoming. The patient's Lovenox is reduce down the 40 mg subcu daily. Plan dated 06/05/2021. I did speak to the patient's family doctor today. I explained to him that Steven was not a candidate for REM, given the fact, that he had symptoms for greater than 7 days. He didn't qualify for the monoclonal antibody against interleukin-6, LUIS. In addition, we did increase his steroids Solu-Medrol 60 mg every 6 hours, in place of Decadron, and continue with Lovenox, vitamin C, vitamin D3, and zinc. The patient's overall prognosis is guarded. We will continue to follow make recommendations where appropriate. Plan dated 06/08/2021. The patient's chest x-ray is virtually unchanged. Diffuse bilateral infiltrates are again seen. The patient is currently receiving an albuterol inhaler, Xanax, vitamin C, vitamin D3, zinc, Robitussin, Solu-Medrol, Tessalon Perles, and the monoclonal antibody against interleukin-6, i.e. LUIS. Clinically, I believe he is doing about the same. In my opinion, he is no worse, and may be only slightly better. We will continue to follow him very closely. He does understand, that he may end up in the intensive care unit on mechanical ventilator, should he take a turn for the worse. Time with Patient: Less than 30
[2021-06-08 14:20] LABS: C Reactive Protein 2.8 mg/dL (0.0-0.8)
[2021-06-08] MEDS: SODIUM CHLORIDE 0.9% 1,000 ML IV SCH (18:06)
--- NOTE | 2021-06-08 18:51 | PN ---
PROGRESS NOTE DATE OF SERVICE: 06/08/2021 This 75-year-old gentleman who was admitted with acute COVID-19 interstitial pneumonia and acute bilateral pneumonia with acute hypoxic respiratory is being closely monitored. Chest x-ray showed bilateral extensive lesions. Multiple consultants are following the patient closely. The patient is severely anxious, also. White count is elevated at 16. D-dimer is today at 10.21. LDH and inflammatory markers of COVID-19 are also at present elevated. Past medical history reviewed. REVIEW OF SYSTEMS: CARDIOVASCULAR SYSTEM: No angina. RESPIRATION: As mentioned earlier. GI: As mentioned earlier. : No dysuria. NERVOUS SYSTEM: No numbness, weakness. CURRENT MEDICATIONS: Reviewed. They include Tylenol, Ventolin, Xanax, vitamin C, aspirin, baricitinib, Tessalon. Doses are reviewed. PHYSICAL EXAMINATION: Patient is alert, oriented x3. Pulse is 60, blood pressure 127/64, respiration 18, temperature 95.9, pulse ox 92% on 15 L. HEENT: Conjunctivae normal. NECK: No jugular venous distention. CARDIOVASCULAR: S1, S2 muffled. RESPIRATION: Breath sounds diminished at the bases. Bilateral scattered rhonchi. ABDOMEN: Soft. NERVOUS SYSTEM: No focal deficit. LAB STUDIES: WBC 15. Other labs are noted, as mentioned earlier. ASSESSMENT: 1. Acute COVID-19 infection with acute bilateral interstitial pneumonia, extensive, with acute hypoxic respiratory failure with possible sepsis secondary to COVID-19, present on admission. 2. Lactic acidosis secondary to above. 3. Extensive interstitial bilateral COVID-19 pneumonia. 4. Elevated white count, possibly secondary to above. 5. Possible subsegmental pulmonary embolism cannot be ruled out. 6. History of atrial fibrillation. 7. Remote history of nicotine dependence. 8. Severe anxiety. 9. GI prophylaxis and DVT prophylaxis. RECOMMENDATIONS AND DISCUSSION: In this 75-year-old gentleman who presented with multiple complex medical issues, we will monitor the patient closely, continue the current medications, continue symptomatic treatment. Continue the bronchodilators. The patient is extremely short of breath at this time. The patient has continued to be hypoxic. D-dimer is also elevated. I would recommend a CT angio of the chest to rule out the possibility of any new pulmonary embolism. Guarded prognosis. Further recommendations to follow. A 2D echo with Doppler also will be ordered. See orders for further details. MMODL / IJN: [id number] /
--- NOTE | 2021-06-08 20:07 | PN ---
PROGRESS NOTE DATE OF SERVICE: 06/08/2021 REASON FOR FOLLOWUP: COVID-19 pneumonia. INTERVAL HISTORY: The patient is afebrile. The patient is breathing comfortably, still requiring high- flow oxygen. Denies any chest pain or any worsening cough. No abdominal pain or diarrhea. PHYSICAL EXAMINATION: Blood pressure is 127/64, pulse of 67, temperature 97. He is 92% on 15 L high-flow oxygen. GENERAL DESCRIPTION: General description is an elderly male up in the bed in no distress. RESPIRATORY SYSTEM: Unlabored breathing with coarse bilateral rhonchi. No wheeze. HEART: S1, S2. Regular rate and rhythm. ABDOMEN: Soft. No tenderness. EXTREMITIES: No edema of the feet. LABS: D-dimer is 10.21. LDH is down and CRP is down. DIAGNOSTIC IMPRESSION AND PLAN: Patient with acute COVID-19 pneumonia in this patient who did have minimal clinical response. Patient is currently on baricitinib, Lovenox, Solu-Medrol. To continue. Anticoagulation per Pulmonary. Continue supportive care. MMODL / IJN: [id number] /
--- NOTE | 2021-06-08 20:14 | CT ---
EXAMINATION TYPE: CT angio chest DATE OF EXAM: 06/08/2021 COMPARISON: 06/08/2021 HISTORY: covid CT DLP: 671.2 mGycm Automated exposure control for dose reduction was used. CONTRAST: Performed with IV Contrast, patient injected with 100 mL of Isovue 370. There are 3-D post processed images. There is diffuse groundglass interstitial infiltrate throughout the lungs. There is no evidence of a pulmonary mass. There is no pleural effusion. Heart is enlarged. There is no pericardial effusion. Th ere are bilateral bronchial lymph nodes that measure up to 1.5 cm. There is no mediastinal adenopathy . There are no hilar masses. Thoracic vertebra have normal spacing and alignment. There is no paraspinal mass. Posterior elements are intact. Upper abdominal soft tissues are intact. There is no evidence of filling defect in the pulmonary arteries. IMPRESSION: No evidence of pulmonary embolism. There is extensive pulmonary interstitial pneumonia which is not s ignificantly different than last exam.
[2021-06-09] MEDS: guaiFENesin-DM 100-10MG/5ML 10 ML CUP PO PRN (00:55)
[2021-06-09] MEDS: ALPRAZolam 0.25 MG TAB PO PRN ×4 (00:55→20:59)
[2021-06-09] MEDS: methylPREDNISolone SOD SUCCI 125 MG/2 ML VIAL IV SCH ×5 (00:55→23:11)
[2021-06-09] MEDS: ALBUTEROL HFA INHALER INHALATION SCH ×4 (07:20→19:46)
[2021-06-09] MEDS: ASPIRIN 81 MG PO SCH (08:14)
[2021-06-09] MEDS: CHOLECALCIFEROL 25 MCG (1000 IU) TABLET PO SCH (08:14)
[2021-06-09] MEDS: ZINC SULFATE 220 MG CAP PO SCH (08:14)
[2021-06-09] MEDS: ASCORBIC ACID 500 MG TAB PO SCH (08:14)
[2021-06-09] MEDS: PANTOPRAZOLE 40 MG TABLET PO SCH ×2 (08:14→17:11)
[2021-06-09] MEDS: METOPROLOL TARTRATE 25 MG TAB PO SCH (08:14)
[2021-06-09] MEDS: CYANOCOBALAMIN 500 MCG TAB PO SCH (08:15)
[2021-06-09] MEDS: ENOXAPARIN 40 MG/0.4 ML SYRINGE SQ SCH (08:15)
[2021-06-09] MEDS: BENZONATATE 100 MG CAP PO SCH ×3 (08:15→20:58)
[2021-06-09] MEDS: BARICITINIB 2 MG TABLET PO SCH (08:18)
[2021-06-09] MEDS: SODIUM CHLORIDE 0.9% 1,000 ML IV SCH (11:37)
[2021-06-09 12:33] LABS: Basophils # (A) 0.01 X 10*3/uL (0.00-0.10); Basophils % (A) 0 %; Eosinophils # (A) 0 X 10*3/uL (0.04-0.35); Eosinophils % (A) 0 %; HCT 38.8 % (39.6-50.0); HGB 12.7 g/dL (13.0-17.0); Lymphocytes # (A) 0.41 X 10*3/uL (0.90-5.00); MCH 29.1 pg (27.0-32.0); MCHC 32.7 g/dL (32.0-37.0); Mean Platelet Volume 10.7 fL (9.5-12.2); Monocytes # (A) 0.66 X 10*3/uL (0.20-1.00); Monocytes % (A) 3.3 %; Neutrophils # (A) 18.83 X 10*3/uL (1.80-7.70); Neutrophils % (A) 93.9 %; Platelet Count 360 X 10*3/uL (140-440); RBC 4.36 X 10*6/uL (4.40-5.60); RDW 13.4 % (11.5-14.5); WBC 20.08 X 10*3/uL (4.50-10.00)
[2021-06-09 12:54] LABS: African American GFR (CKD) 107.7 (60.0-200.0); Albumin 3.2 g/dL (3.80-4.90); Albumin/Globulin Ratio 1.45 (1.60-3.17); Anion Gap 3.9 mmol/L (4.00-12.00); Calcium 8.1 mg/dL (8.7-10.3); Carbon Dioxide 28.1 mmol/L (21.6-31.8); Globulin 2.2 g/dL (1.6-3.3); Potassium 4.4 mmol/L (3.5-5.5); Total Bilirubin 0.9 mg/dL (0.3-1.2); Total Protein 5.4 g/dL (6.2-8.2)
--- NOTE | 2021-06-09 13:15 | P.PN ---
Subjective Progress Note Date: 06/09/21 Principal diagnosis: Shortness of breath, coronavirus pneumonia. Pulmonary consult dated 06/03/2021. 75-year-old male, admitted with a diagnosis of coronavirus associated pneumonia. The patient has a history of chronic atrial fibrillation. The patient apparently was seen by his primary doctor, and given antibiotics and steroids. The patient became ill with complaints of cough and shortness of breath, with fever and chills, back on May 23. Positive for coronavirus on May 24. The patient was in the [facility] emergency room yesterday, and transferred here. The patient does have a history of chronic atrial fibrillation. The patient was placed on Lovenox, Decadron, and vitamins. The patient was not a candidate for REM. The patient is non-vaccinated. Currently, we see him in room 10, in the emergency department. White count 18.92. Hemo globin hematocrit and platelet count are all normal. D-dimer was 0.7. Sodium, potassium, chloride, CO2, anion gap, and BUN were normal. Creatinine was 0.62. Ferritin 826, ALT 119. LDH was 1075. C-reactive protein 7.7. Chest x-ray shows diffuse bilateral infiltrates. Progress note dated 06/04/2021. 75-year-old male, seen in the emergency department yesterday, the diagnosis of acute hypoxemic respiratory failure secondary to coronavirus associated pneumonia. The patient also has a history of chronic atrial fibrillation. The patient was outside the window for REM. The patient's overall condition in the last couple days has worsened, and we will likely try to provide him with the monoclonal antibody against interleukin-6, LUIS. Currently, the patient is getting oxygen via 15 L high flow nasal cannula, and sometimes using a nonrebreather mask as well. There were no new labs today. Venous Doppler studies were negative. CT angiogram was essentially negative for pulmonary embolism but did show patchy bilateral infiltrates consistent with a diagnosis of coronavirus pneumonia. Progress note dated 06/05/2021. 75-year-old male, seen in the emergency department, a couple days ago. He was diagnosed with acute hypoxemic respiratory failure secondary to coronavirus associated pneumonia. He also carries with him a diagnosis of chronic atrial fibrillation. Apparently his family doctor wanted to speak to me, so I did call him on the phone today and it gave him an update. She was satisfied with the update. Currently, the patient's on 15 L high flow nasal cannula, and sometimes uses a nonrebreather mask as well. Currently, the patient is on Solu-Medrol 60 mg every 6 hours, Olumiant, Lovenox, and vitamins. Clinically, the patient is about the same as he was a yesterday. No better, and no worse. No new laboratory data today to report. The patient will have a chest x-ray tomorrow. Progress note dated 06/08/2021. 75-year-old male, seen in consultation on June 03. He was admitted with a diagnosis of coronavirus associated pneumonia and acute hypoxemic respiratory failure. Currently, the patient is using 15 L high flow nasal cannula, along with a nonrebreather mask, from time to time. In addition to the above, he has a diagnosis of chronic atrial fibrillation. His chest x-ray today shows diffuse bilateral reticular nodular infiltrates which persist. D-dimer today is 10.21. CT angiogram and Dopplers of lower extremities done earlier, were negative for clot. Progress note dated 06/09/2021. 75-year-old male, seen in consultation on June 03. He was admitted to the hospital with a diagnosis of coronavirus associated pneumonia and acute hypoxemic respiratory failure. Currently, the patient is on AIRVO, with settings of 60 L/m and 75% FiO2. The patient appears to be much more comfortable on this modality rather than high flow nasal cannula plus or minus a nonrebreather mask. The patient did have a CT angiogram and Dopplers of the lower extremities, which were negative. Current laboratory data includes a white count of 20.08, hemoglobin 12.7, hematocrit 38.8, and a platelet count of 360,000. Sodium 138, potassium 4.4, chlorides 106, CO2 28, anion gap 4, BUN 28, creatinine 0.7. The most recent pro-calcitonin level was 0.08. The CT angiogram done yesterday showed diffuse bilateral infiltrates with groundglass appearance. There was no evidence of pulmonary embolism. Objective - Vital Signs Vital signs: Vital Signs Temp 97.9 F 06/09/21 10:00 Pulse 66 06/09/21 10:00 Resp 19 06/09/21 10:00 BP 149/85 06/09/21 10:00 Pulse Ox 89 L 06/09/21 10:00 Intake & Output 06/08/21 06/09/21 06/09/21 18:59 06:59 18:59 Intake Total 650 Output Total 1110 2180 Balance -1110 -1530 Weight 98 kg Intake: Intake, IV Titration 450 Amount Sodium Chloride 0.9% 1, 450 000 ml @ 50 mls/hr IV . Q20H [facility] Rx#:[id number] Oral 200 Output: Urine 1110 2180 Other: Voiding Method Urinal Urinal Urinal # Voids 7 # Bowel Movements 0 - Exam Mild respiratory distress, oriented 3. Currently on AIRVO. Mild con versational dyspnea, and no use of accessory muscles. HEENT examination is grossly unremarkable. Neck supple. Full range of motion. No adenopathy thyromegaly or neck vein distention. Cardiovascular examination reveals regular rhythm rate. S1-S2 normal. No S3 or S4. No discernible murmur noted. Heart rate 66 bpm. Heart sounds are distant. Lungs reveal coarse bilateral rhonchi. No wheezes or crackles. Breath sounds equal bilaterally. Saturations are in the low 90s on AIRVO. Abdomen soft bowel sounds are heard. No masses or tenderness. Extremities are intact. No cyanosis clubbing or edema. Skin is without rash or lesion. Neurologic examination is brief but nonfocal. - Labs CBC & Chem 7: 06/09/21 06:07 06/09/21 06:07 Labs: Abnormal Lab Results - Last 24 Hours (Table) 06/08/21 06/09/21 06/09/21 Range/Units 08:04 06:07 06:07 WBC 20.08 H (4.50-10.00) X 10*3/uL RBC 4.36 L (4.40-5.60) X 10*6/uL Hgb 12.7 L (13.0-17.0) g/dL Hct 38.8 L (39.6-50.0) % Immature Gran # 0.17 H (0.00-0.04) X 10*3/uL Neutrophils # 18.83 H (1.80-7.70) X 10*3/uL Lymphocytes # 0.41 L (0.90-5.00) X 10*3/uL Eosinophils # 0 L (0.04-0.35) X 10*3/uL Anion Gap 3.90 L (4.00-12.00) mmol/L BUN 28.0 H (9.0-27.0) mg/dL BUN/Creatinine Ratio 40.00 H (12.00-20.00) Ratio Glucose 146 H (70-110) mg/dL Calcium 8.1 L (8.7-10.3) mg/dL AST 39 H (14-35) U/L ALT 101 H (10-49) U/L Alkaline Phosphatase 132 H (41-126) U/L Lactate Dehydrogenase 898 H (120-246) U/L C-Reactive Protein 2.8 H (0.0-0.8) mg/dL Total Protein 5.4 L (6.2-8.2) g/dL Albumin 3.20 L (3.80-4.90) g/dL Albumin/Globulin Ratio 1.45 L (1.60-3.17) g/dL Microbiology - Last 24 Hours (Table) 06/02/21 15:50 Blood Culture - Final Blood No Growth after 144 hours 06/02/21 15:35 Blood Culture - Final Blood No Growth after 144 hours Assessment and Plan Assessment: Acute hypoxemic respiratory failure secondary to coronavirus associated pneumonia. History of chronic atrial fibrillation. Plan: Plan dated 06/03/2021. The patient is not a candidate for REM. The patient is not sick enough to receive a monoclonal antibody against interleukin-6. The patient should be on Lovenox, Decadron, and vitamins. We recommend oxygen therapy. We also recommend the patient move about in bed, right side down, left side down, supine, and prone if possible. Additional recommendations and suggestions are forthcoming. No need for antibiotics at this time. A pro-calcitonin level was ordered. Plan dated 06/04/2021. The patient's on appropriate medications. The patient was not a candidate for REM. We did order the monoclonal antibody against interleukin-6. The patient should be on Decadron, Lovenox, and vitamins. We've asked him to move about in bed, right side down, left side down, supine and prone. CT angiogram was negative for PE. Medications are reviewed. Prognosis is guarded. Additional recommendations and suggestions are forthcoming. The patient's Lovenox is reduce down the 40 mg subcu daily. Plan dated 06/05/2021. I did speak to the patient's family doctor today. I explained to him that Steven was not a candidate for REM, given the fact, that he had symptoms for greater than 7 days. He didn't qualify for the monoclonal antibody against interleukin-6, LUIS. In addition, we did increase his steroids Solu-Medrol 60 mg every 6 hours, in place of Decadron, and continue with Lovenox, vitamin C, vitamin D3, and zinc. The patient's overall prognosis is guarded. We will continue to follow make recommendations where appropriate. Plan dated 06/08/2021. The patient's chest x-ray is virtually unchanged. Diffuse bilateral infiltrates are again seen. The patient is currently receiving an albuterol inhaler, Xanax, vitamin C, vitamin D3, zinc, Robitussin, Solu-Medrol, Tessalon Perles, and the monoclonal antibody against interleukin-6, i.e. LUIS. Clinically, I believe he is doing about the same. In my opinion, he is no worse, and may be only slightly better. We will continue to follow him very closely. He does understand, that he may end up in the intensive care unit on mechanical ventilator, should he take a turn for the worse. Plan dated 06/09/2021. The patient was placed on AIRVO earlier today. He seems to tolerate that better than a 15 L high flow nasal cannula plus or minus a nonrebreather mass. CT angiogram was negative for pulmonary most him. He remains on Xanax, albuterol inhaler, vitamin C, vitamin D3, zinc, Robitussin, Solu-Medrol, Tessalon Perles, and LUIS. The patient also remains on Lovenox. Clinically, the patient's about the same or slightly better than he has been over the last few days. We will continue to follow and make recommendations where appropriate. Time with Patient: Less than 30
--- NOTE | 2021-06-09 19:17 | PN ---
PROGRESS NOTE DATE OF SERVICE: 06/06/2021 REASON FOR FOLLOWUP: COVID-19 pneumonia. INTERVAL HISTORY: The patient is afebrile. The patient is breathing slightly comfortably. The patient denies having any chest pain or any worsening cough. No vomiting. No abdominal pain or diarrhea. PHYSICAL EXAMINATION: Blood pressure 149/85, pulse of 66, temperature is 97.9. General description is an elderly male up in the chair in no distress. Respiratory system: Unlabored breathing, coarse bilaterally breath sounds, no wheeze. Heart: S1, S2. Regular rate and rhythm. Abdomen soft, no tenderness. Extremities: No edema of the feet. LABS: Hemoglobin is 12.1, white count ( ). BUN of 28, creatinine 0.7. The patient did have a CT angiogram of the chest. No evidence of any PE. DIAGNOSTIC IMPRESSION AND PLAN: 1. Patient with extensive pneumonia secondary COVID-19, currently on baricitinib, Solu- Medrol and ascorbic acid, to continue. 2. Elevated white count, more likely steroid effect and will monitor closely. MMODL / IJN: [id number] /
--- NOTE | 2021-06-09 20:59 | PN ---
PROGRESS NOTE DATE OF SERVICE: 06/09/2021 This 75-year-old gentleman admitted acute hypoxic respiratory failure and acute COVID- 19 has extensive bilateral pneumonia. The patient's D-dimer was persistently elevated at 10.21. A CT angio was done yesterday which was reviewed personally by me. It showed no evidence of pulmonary embolism. However, extensive bilateral interstitial infiltrates highly suggestive of COVID-19 pneumonia were noted. The patient is highly anxious as well. The patient is on AIRVO at this time. Dr. Paris is following the patient closely. Past medical history reviewed. REVIEW OF SYSTEMS: CARDIOVASCULAR SYSTEM: No angina. RESPIRATION: As mentioned earlier. GI: As mentioned earlier. : No dysuria. NERVOUS SYSTEM: No numbness, weakness. CURRENT MEDICATIONS: Reviewed. They include Tylenol, Ventolin, Xanax, vitamin C, aspirin, baricitinib, Tessalon Perles, vitamin B12, Lovenox. Doses are reviewed. PHYSICAL EXAMINATION: Patient alert and oriented x3. Pulse 64, blood pressure 120/60, respiration 17, temperature 97.9, pulse ox 92% percent on 15 L AIRVO. HEENT: Conjunctivae normal. Oral mucosa moist. NECK: No jugular venous distention. CARDIOVASCULAR: S1, S2 muffled. RESPIRATION: Breath sounds diminished at the bases. A few scattered rhonchi. ABDOMEN: Soft. NERVOUS SYSTEM: No focal deficit. LABS: WBC 20.8, hemoglobin 12.7. Other labs are noted. ASSESSMENT: 1. Acute COVID-19 infection with acute bilateral interstitial pneumonia, extensive, with acute hypoxic respiratory failure with possible sepsis secondary to COVID-19, present on admission. 2. Elevated white count. 3. Acute lactic acidosis secondary to above. 4. Extensive interstitial bilateral COVID-19 pneumonia. 5. Elevated white count, possibly reactive. 6. Possible subsegmental pulmonary embolism cannot be ruled out. Repeat CT scan did not show any evidence of pulmonary embolism. 7. History of atrial fibrillation. 8. Remote history of nicotine dependence. 9. Severe anxiety. 10.GI prophylaxis. DVT prophylaxis. RECOMMENDATIONS AND DISCUSSION: I recommend to continue current medications, continue with symptomatic treatment. I would also recommend repeat cultures, sputum and blood also. Inflammatory markers are slightly elevated. Some are showing a diminishing trend. Will continue to monitor. The prognosis is extremely guarded because of the quite extensive nature of the COVID- 19 pneumonia in bilateral lung de la torre. Discussed with the patient. Further recommendations to follow. MMODL / IJN: [id number] /
[2021-06-10] MEDS: methylPREDNISolone SOD SUCCI 125 MG/2 ML VIAL IV SCH ×3 (05:23→16:34)
[2021-06-10] MEDS: ASPIRIN 81 MG PO SCH (07:24)
[2021-06-10] MEDS: ZINC SULFATE 220 MG CAP PO SCH (07:24)
[2021-06-10] MEDS: BARICITINIB 2 MG TABLET PO SCH (07:24)
[2021-06-10] MEDS: ENOXAPARIN 40 MG/0.4 ML SYRINGE SQ SCH (07:24)
[2021-06-10] MEDS: ASCORBIC ACID 500 MG TAB PO SCH (07:25)
[2021-06-10] MEDS: ALPRAZolam 0.25 MG TAB PO PRN ×2 (07:25→20:48)
[2021-06-10] MEDS: METOPROLOL TARTRATE 25 MG TAB PO SCH (07:25)
[2021-06-10] MEDS: CHOLECALCIFEROL 25 MCG (1000 IU) TABLET PO SCH (07:25)
[2021-06-10] MEDS: PANTOPRAZOLE 40 MG TABLET PO SCH ×2 (07:25→16:34)
[2021-06-10] MEDS: BENZONATATE 100 MG CAP PO SCH ×3 (07:25→20:48)
[2021-06-10] MEDS: CYANOCOBALAMIN 500 MCG TAB PO SCH (07:25)
[2021-06-10] MEDS: SODIUM CHLORIDE 0.9% 1,000 ML IV SCH (07:31)
[2021-06-10] MEDS: ALBUTEROL HFA INHALER INHALATION SCH ×4 (08:50→20:39)
[2021-06-10] MEDS: SENNOSIDES 8.6 MG TAB PO SCH ×2 (11:49→20:48)
--- NOTE | 2021-06-10 13:30 | P.PN ---
Subjective Progress Note Date: 06/10/21 On today's evaluation of 06/10/2021, I'm seeing this patient for a follow-up. She is as he is a 75-year-old male patient who is being seen in follow-up regarding obesity-related pneumonia. The patient resents also cough and shortness of breath and his symptoms dated back to 05/23/2021. He checked positive for COVID-19 on 05/24/2021. The patient currently is on a combination of solumedrol and Baricitinib, and the patient continues to be on high flow oxygen at 6 L with an FiO2 of 90% in addition to A nonrebreather facemask. Computed tomography scan of the chest that was done on 06/08/2021 showed no evidence of any pneumonia. Nevertheless, there was diffuse bilateral ground this pulmonary infiltrates throughout the lung de la torre bilaterally. On today's evaluation, the d-dimer is at 10.2 from 06/08/2021. Electrolytes are normal. Renal function is normal. The pro-calcitonin level was nonelevated. AST is 101, ALP is 132, LEVEL WAS 0.08, LDH WAS 898 ON 06/08/2021 WITH A CRP LEVEL OF 2.8. THE WHITE CELL COUNT FROM TODAY is still pending for now . The patient remains on Lovenox and the patient is currently on a dose of 40 mg subcu on a daily basis. Inflammatory markers will be repeated for tomorrow. Objective - Vital Signs Vital signs: Vital Signs Temp 98.0 F 06/10/21 10:00 Pulse 80 06/10/21 10:00 Resp 22 06/10/21 10:00 BP 130/57 06/10/21 10:00 Pulse Ox 91 L 06/10/21 12:42 Intake & Output 06/09/21 06/10/21 06/10/21 18:59 06:59 18:59 Intake Total 100 400 Output Total 500 600 Balance -500 -500 400 Intake: Intake, IV Titration 100 Amount Sodium Chloride 0.9% 1, 100 000 ml @ 50 mls/hr IV . Q20H [facility] Rx#:[id number] Oral 400 Output: Urine 500 600 Other: Voiding Method Urinal Urinal Urinal # Voids 6 # Bowel Movements 0 - Exam Mild respiratory distress, oriented 3. Currently on nasal O2 at 15 L. Also using a nonrebreather mass. Mild conversational dyspnea, and no use of accessory muscles. HEENT examination is grossly unremarkable. Neck supple. Full range of motion. No adenopathy thyromegaly or neck vein distention. Cardiovascular examination reveals regular rhythm rate. S1-S2 normal. No S3 or S4. No discernible murmur noted. Heart rate 76 bpm. Heart sounds are distant. Lungs reveal coarse bilateral rhonchi. No wheezes or crackles. Breath sounds equal bilaterally. Saturations are 95 % on 15 L high flow nasal cannula. Abdomen soft bowel sounds are heard. No masses or tenderness. Extremities are intact. No cyanosis clubbing or edema. Skin is without rash or lesion Neurologic examination is brief but nonfocal. - Labs CBC & Chem 7: 06/09/21 06:07 06/09/21 06:07 Assessment and Plan Plan: 1 Acute hypoxemic respiratory failure secondary to coronavirus associated pneumonia. 2 acute COVID-19 related pneumonia with diffuse but the pulmonary infiltrates and diffuse groundglass pulmonary changes 3 elevated inflammatory markers secondary to above 4 shortness of breath secondary to above 5 History of chronic atrial fibrillation. 6 Anxiety Plan Repeat intramedullary markers for tomorrow including of the a CRP and D dimers Continue IV Solu-Medrol at a dose of 60 mg every 6 hours Continue Baricitinib Monitor closely the oxygenation and try to wean off the oxygenation if saturation remains above 90% Continue home medications We'll continue to follow
[2021-06-10] MEDS: ACETAMINOPHEN TAB 325 MG TAB PO PRN (20:48)
--- NOTE | 2021-06-11 00:10 | P.PN ---
Subjective Progress Note Date: 06/10/21 This is a 75-year-old male who was recently admitted with COVID-19 infection with acute hypoxic respiratory failure and is being closely monitored. Pulmonary following closely and patient is maintained on dexamethasone along with Lovenox and vitamin and zinc supplements. Patient currently maintained on 15 L high flow via nasal cannula with supplemental use of 15 L nonrebreather. Patient states his breathing is slightly improved and not requiring a nonrebreather as often. Instructed the patient to use incentive spirometer and increase activity as tolerated. Patient continues to be extremely weak and will have PT/OT evaluate the patient once more stable. 06/06/2021 Patient is seen in follow-up this morning states his shortness of breath has slightly worsened and his recovery time and working to breathe has become more difficult. Patient is continued on 15 L high flow along with nonrebreather intermittently and having to use it more frequently today he states. Incentive spirometer at the bedside and instructed the patient to continue to use at least 10 times every hour while awake and encouraged increased activity as tolerated. Patient states he walked to the bathroom with assistance and became extremely dyspneic. Patient is afebrile. D-dimer is 4.72 with a WBC of 16 and hemoglobin is stable at 15.4. Sodium is 138 with a potassium of 4.5 and current creatinine is 0.63. LDH is elevated at 2492 and CRP is 6.5. Chest x-ray today shows findings consistent with COVID-19 pneumonia with bilateral interstitial and airspace disease present. 06/07/2021 Patient is seen and evaluated in follow up this morning and is having increasing shortness of breath and on 15L high flow via NC and 15 L non-rebreather. Patient has been back in bed and attempting position changes frequently along with prone position. Patient continues on lovenox, baracitinib, vitamin and zinc supplement s,and steroids. Pulmonary following closely. 06/10/2021 Patient is seen in follow up this morning and is now maintained on airvo at 60% and continues to be extremely dyspneic with minimal exertion. Patient also continues with 15L Non rebreather as needed. Patient is maintained on lovenox along with baricitinib and IV steroids with pulmonary following. Patient states he has no reserve and taking longer periods of time to recover with attempting to position change or use the urinal. Review of systems: Constitutional: reports of fatigue, no reports of fever, or chills Cardiovascular: No reports of chest pain or palpitations Respiratory: Reports continued shortness of breath with worsening dyspnea today GI: No reports of nausea, vomiting, or diarrhea : No reports of dysuria or retention Neurovascular: Reports generalized weakness Active Medications Acetaminophen (Acetaminophen Tab 325 Mg Tab) 650 mg PO Q6HR PRN PRN Reason: Fever and/ or Mild Pain Last Admin: 06/10/21 20:48 Dose: 650 mg Documented by: Albuterol Sulfate (Albuterol Hfa Inhaler) 2 puff INHALATION RT-QID [facility] Last Admin: 06/10/21 20:39 Dose: 2 puff Documented by: Albuterol Sulfate (Albuterol Hfa Inhaler) 2 puff INHALATION RT-QID PRN PRN Reason: Shortness Of Breath Or Wheezing Alprazolam (Alprazolam 0.25 Mg Tab) 0.25 mg PO TID PRN PRN Reason: Anxiety Last Admin: 06/10/21 20:48 Dose: 0.25 mg Documented by: Ascorbic Acid (Ascorbic Acid 500 Mg Tab) 500 mg PO DAILY [facility] Last Admin: 06/10/21 07:25 Dose: 500 mg Documented by: Aspirin (Aspirin 81 Mg) 81 mg PO DAILY [facility] Last Admin: 06/10/21 07:24 Dose: 81 mg Documented by: Baricitinib (Baricitinib 2 Mg Tablet) 4 mg PO DAILY [facility] Stop: 06/17/21 09:01 Last Admin: 06/10/21 07:24 Dose: 4 mg Documented by: Benzonatate (Benzonatate 100 Mg Cap) 200 mg PO TID [facility] Last Admin: 06/10/21 20:48 Dose: 200 mg Documented by: Cholecalciferol (Cholecalciferol 25 Mcg (1000 Iu) Tablet) 25 mcg PO DAILY [facility] Last Admin: 06/10/21 07:25 Dose: 25 mcg Documented by: Cyanocobalamin (Cyanocobalamin 500 Mcg Tab) 1,000 mcg PO DAILY [facility] Last Admin: 06/10/21 07:25 Dose: 1,000 mcg Documented by: Enoxaparin Sodium (Enoxaparin 40 Mg/0.4 Ml Syringe) 40 mg SQ DAILY [facility] Last Admin: 06/10/21 07:24 Dose: 40 mg Documented by: Guaifenesin/Dextromethorphan (Guaifenesin-Dm 100-10mg/5ml 10 Ml Cup) 10 ml PO Q6HR PRN PRN Reason: Cough Last Admin: 06/09/21 00:55 Dose: 10 ml Documented by: Methylprednisolone Sodium Succinate (Methylprednisolone Sod Succi 125 Mg/2 Ml Vial) 60 mg IV Q6HR [facility] Last Admin: 06/10/21 16:34 Dose: 60 mg Documented by: Metoprolol Tartrate (Metoprolol Tartrate 25 Mg Tab) 25 mg PO DAILY [facility] Last Admin: 06/10/21 07:25 Dose: 25 mg Documented by: Ondansetron HCl (Ondansetron Odt 8 Mg Tab.Rapdis) 8 mg PO Q8HR PRN PRN Reason: Nausea And Vomiting Pantoprazole Sodium (Pantoprazole 40 Mg Tablet) 40 mg PO AC-BID [facility] Last Admin: 06/10/21 16:34 Dose: 40 mg Documented by: Senna (Sennosides 8.6 Mg Tab) 8.6 mg PO BID [facility] Last Admin: 06/10/21 20:48 Dose: 8.6 mg Documented by: Zinc Sulfate (Zinc Sulfate 220 Mg Cap) 220 mg PO DAILY [facility] Last Admin: 06/10/21 07:24 Dose: 220 mg Documented by: Physical exam: Gen: This is a 75-year-old male awake, alert and oriented 3, well-developed, well-nourished, on 60% airvo and non-rebreather 15L HEENT: Head is atraumatic, normocephalic. Pupils equal, round. Sclerae is anicteric. NECK: Supple. No JVD. No lymphadenopathy. No thyromegaly. LUNGS: Diminished breath sounds bilaterally with scattered coarse rhonchi noted. No intercostal retractions. HEART: Regular rate and rhythm. No murmur. ABDOMEN: Soft. Bowel sounds are present. No masses. No tenderness. EXTREMITIES: No pedal edema. No calf tenderness. NEUROLOGICAL: Patient is awake, alert and oriented x3. Cranial nerves 2 through 12 are grossly intact. Diffusely weak Assessment: Acute COVID-19 infection with acute component of interstitial pneumonia, bilater al with acute hypoxic respiratory failure and possible sepsis secondary to COVID-19 Lactic acidosis secondary to above Extensive interstitial bilateral COVID-19 pneumonia Elevated white blood count possibly secondary to above Possible subsegmental pulmonary embolism ruled out History of atrial fibrillation Remote history of nicotine dependence GI prophylaxis: Protonix DVT prophylaxis: subcutaneous Lovenox Plan: Recommend to continue with current medications and continue with inhalers, IV steroids, lovenox, and vitamin supplements. Continue to wean FiO2 as tolerated as patient is currently maintained on 15 L nonrebreather along with continued use airvo. Patient receiving Baracitinib. Pulmonary and infectious disease following. Patient has incentive spirometer at the bedside and instructed and encouraged the patient to continue with incentive spirometer use at least 10 times every hour while awake and increased activity as tolerated. Patient also encouraged position changes and proning while in bed. Patient is extremely weak and taking longer to recover respiratory cardozo. Prognosis remains extremely guarded. Code status addressed and wishes to remain full code at this time. Objective - Vital Signs Vital signs: Vital Signs Temp 98.1 F 06/10/21 05:18 Pulse 83 06/10/21 05:18 Resp 20 06/10/21 05:18 BP 147/79 06/10/21 05:18 Pulse Ox 89 L 06/10/21 05:18 Intake & Output 06/09/21 06/10/21 06/10/21 18:59 06:59 18:59 Intake Total 100 Output Total 500 600 Balance -500 -500 Intake: Intake, IV Titration 100 Amount Sodium Chloride 0.9% 1, 100 000 ml @ 50 mls/hr IV . Q20H [facility] Rx#:[id number] Output: Urine 500 600 Other: Voiding Method Urinal Urinal Urinal # Voids 6 # Bowel Movements 0 - Labs CBC & Chem 7: 06/09/21 06:07 06/09/21 06:07 Labs: Abnormal Lab Results - Last 24 Hours (Table) 06/09/21 06/09/21 Range/Units 06:07 06:07 WBC 20.08 H (4.50-10.00) X 10*3/uL RBC 4.36 L (4.40-5.60) X 10*6/uL Hgb 12.7 L (13.0-17.0) g/dL Hct 38.8 L (39.6-50.0) % Immature Gran # 0.17 H (0.00-0.04) X 10*3/uL Neutrophils # 18.83 H (1.80-7.70) X 10*3/uL Lymphocytes # 0.41 L (0.90-5.00) X 10*3/uL Eosinophils # 0 L (0.04-0.35) X 10*3/uL Anion Gap 3.90 L (4.00-12.00) mmol/L BUN 28.0 H (9.0-27.0) mg/dL BUN/Creatinine Ratio 40.00 H (12.00-20.00) Ratio Glucose 146 H (70-110) mg/dL Calcium 8.1 L (8.7-10.3) mg/dL AST 39 H (14-35) U/L ALT 101 H (10-49) U/L Alkaline Phosphatase 132 H (41-126) U/L Total Protein 5.4 L (6.2-8.2) g/dL Albumin 3.20 L (3.80-4.90) g/dL Albumin/Globulin Ratio 1.45 L (1.60-3.17) g/dL
[2021-06-11] MEDS: methylPREDNISolone SOD SUCCI 125 MG/2 ML VIAL IV SCH ×4 (00:22→16:59)
--- NOTE | 2021-06-11 06:17 | PN ---
PROGRESS NOTE DATE OF SERVICE: 06/10/2021 REASON FOR FOLLOWUP: COVID-19 pneumonia. INTERVAL HISTORY: Patient is afebrile and did mention breathing slightly comfortably. Still requiring high-flow oxygen with AIRVO. No chest pain. Occasional cough. Minimal sputum production. No nausea, vomiting. No abdominal pain. No diarrhea. PHYSICAL EXAMINATION: Blood pressure 125/56, pulse of 64, temperature 98. General description is an elderly male up in the chair in no distress. Respiratory system: Unlabored breathing, coarse breath sounds. Heart S1, S2. Regular rate and rhythm. Abdomen soft, no tenderness. LABS: Hemoglobin is 12.7, white count D. dimer up to 10.1 creatinine 0.7. DIAGNOSTIC IMPRESSION AND PLAN: Patient with acute COVID-19 pneumonia. Patient is currently on Solu-Medrol, Lovenox. Dose may need to be adjusted up in view of the elevated D-dimer. Pulmonary. Elevated white count more likely steroid effect. No evidence of any secondary bacterial pneumonia and continue supportive care. MMODL / IJN: [id number] /
[2021-06-11 07:33] LABS: Basophils % (A) 0 %; Eosinophils % (A) 0 %; HCT 41.8 % (39.0-53.0); HGB 13.7 gm/dL (13.0-17.5); Lymphocytes # (A) 0.2 k/uL (1.0-4.8); Lymphocytes % (A) 1 %; MCH 29.9 pg (25.0-35.0); MCHC 32.9 g/dL (31.0-37.0); MCV 90.9 fL (80.0-100.0); Mean Platelet Volume 8.3; Monocytes # (A) 0.7 k/uL (0-1.0); Monocytes % (A) 4 %; Neutrophils # (A) 17.7 k/uL (1.3-7.7); Neutrophils % (A) 95 %; Platelet Count 387 k/uL (150-450); WBC 18.6 k/uL (3.8-10.6)
[2021-06-11 07:48] LABS: ALT 88 U/L (4-49); AST 46 U/L (17-59); African American GFR (CKD) >90 (>60 ml/min/1.73 sqM); Albumin 2.8 g/dL (3.5-5.0); Albumin/Globulin Ratio 0.9; Alkaline Phosphatase 168 U/L (38-126); Anion Gap 7 mmol/L; Blood Urea Nitrogen 24 mg/dL (9-20); Calcium 8.5 mg/dL (8.4-10.2); Carbon Dioxide 25 mmol/L (22-30); Chloride 107 mmol/L (98-107); Glucose 140 mg/dL (74-99); Non-African American GFR(CKD) >90 (>60 ml/min/1.73 sqM); Potassium 4.3 mmol/L (3.5-5.1); Sodium 139 mmol/L (137-145); Total Bilirubin 1.2 mg/dL (0.2-1.3); Total Protein 5.8 g/dL (6.3-8.2)
[2021-06-11 08:08] LABS: C Reactive Protein 1.5 mg/dL (<1.0)
--- NOTE | 2021-06-11 08:13 | XR ---
EXAMINATION TYPE: XR chest 1V portable DATE OF EXAM: 06/11/2021 Comparison: 06/08/2021 Clinical History: 75-year-old male CoVID pneumonia Findings: Heart upper limits of normal in size. Patchy interstitial changes especially in the mid and lower avi gs persists. Slight improvement in aeration in the periphery of the right upper lobe. Impression: Persistent patchy bilateral interstitial infiltrates with slight improvement in the right upper lobe.
[2021-06-11] MEDS: CHOLECALCIFEROL 25 MCG (1000 IU) TABLET PO SCH (08:16)
[2021-06-11] MEDS: ZINC SULFATE 220 MG CAP PO SCH (08:16)
[2021-06-11] MEDS: ALPRAZolam 0.25 MG TAB PO PRN ×2 (08:16→20:53)
[2021-06-11] MEDS: ENOXAPARIN 40 MG/0.4 ML SYRINGE SQ SCH (08:16)
[2021-06-11] MEDS: SENNOSIDES 8.6 MG TAB PO SCH ×2 (08:16→20:53)
[2021-06-11] MEDS: BENZONATATE 100 MG CAP PO SCH ×3 (08:16→20:53)
[2021-06-11] MEDS: CYANOCOBALAMIN 500 MCG TAB PO SCH (08:16)
[2021-06-11] MEDS: METOPROLOL TARTRATE 25 MG TAB PO SCH (08:17)
[2021-06-11] MEDS: BARICITINIB 2 MG TABLET PO SCH (08:17)
[2021-06-11] MEDS: ASPIRIN 81 MG PO SCH (08:17)
[2021-06-11] MEDS: PANTOPRAZOLE 40 MG TABLET PO SCH ×2 (08:17→15:47)
[2021-06-11] MEDS: ASCORBIC ACID 500 MG TAB PO SCH (08:17)
[2021-06-11] MEDS: ALBUTEROL HFA INHALER INHALATION SCH ×4 (08:55→20:43)
--- NOTE | 2021-06-11 13:47 | P.PN ---
Subjective Progress Note Date: 06/11/21 This is a 75-year-old male who was recently admitted with COVID-19 infection with acute hypoxic respiratory failure and is being closely monitored. Pulmonary following closely and patient is maintained on dexamethasone along with Lovenox and vitamin and zinc supplements. Patient currently maintained on 15 L high flow via nasal cannula with supplemental use of 15 L nonrebreather. Patient states his breathing is slightly improved and not requiring a nonrebreather as often. Instructed the patient to use incentive spirometer and increase activity as tolerated. Patient continues to be extremely weak and will have PT/OT evaluate the patient once more stable. 06/06/2021 Patient is seen in follow-up this morning states his shortness of breath has slightly worsened and his recovery time and working to breathe has become more difficult. Patient is continued on 15 L high flow along with nonrebreather intermittently and having to use it more frequently today he states. Incentive spirometer at the bedside and instructed the patient to continue to use at least 10 times every hour while awake and encouraged increased activity as tolerated. Patient states he walked to the bathroom with assistance and became extremely dyspneic. Patient is afebrile. D-dimer is 4.72 with a WBC of 16 and hemoglobin is stable at 15.4. Sodium is 138 with a potassium of 4.5 and current creatinine is 0.63. LDH is elevated at 2492 and CRP is 6.5. Chest x-ray today shows findings consistent with COVID-19 pneumonia with bilateral interstitial and airspace disease present. 06/07/2021 Patient is seen and evaluated in follow up this morning and is having increasing shortness of breath and on 15L high flow via NC and 15 L non-rebreather. Patient has been back in bed and attempting position changes frequently along with prone position. Patient continues on lovenox, baracitinib, vitamin and zinc supplement s,and steroids. Pulmonary following closely. 06/10/2021 Patient is seen in follow up this morning and is now maintained on airvo at 60% and continues to be extremely dyspneic with minimal exertion. Patient also continues with 15L Non rebreather as needed. Patient is maintained on lovenox along with baricitinib and IV steroids with pulmonary following. Patient states he has no reserve and taking longer periods of time to recover with attempting to position change or use the urinal. 06/11/2021 Patient is seen in follow-up and evaluated this morning and is continued on Airvo and maintaining oxygen saturations in the low 90s. Pulmonary following closely. Patient is afebrile. Patient is continued on vitamin and zinc supplements along with Baricitinib and subcutaneous Lovenox along with IV steroids and will continue. Patient's d-dimer today is elevated at 18.25 and will increase Lovenox to 50 subcu twice daily. White blood count today is 18.6 and hemoglobin is stable at 13.7, sodium is 139 with a potassium of 4.3 current creatinine is 0.7. Inflammatory markers are elevated with some trending down and CRP is 1.5, LDH is 1968 and alk phos is 168. Patient is afebrile. Patient continues to be extremely anxious and will continue Xanax as needed. Encouraged increase activity as tolerated and continued position changes with incentive spirometer use. Review of systems: Constitutional: reports of fatigue, no reports of fever, or chills, reports extreme anxiety Cardiovascular: No reports of chest pain or palpitations Respiratory: Reports continued shortness of breath with worsening dyspnea today GI: No reports of nausea, vomiting, or diarrhea : No reports of dysuria or retention Neurovascular: Reports generalized weakness Active Medications Acetaminophen (Acetaminophen Tab 325 Mg Tab) 650 mg PO Q6HR PRN PRN Reason: Fever and/ or Mild Pain Last Admin: 06/10/21 20:48 Dose: 650 mg Documented by: Albuterol Sulfate (Albuterol Hfa Inhaler) 2 puff INHALATION RT-QID [facility] Last Admin: 06/10/21 20:39 Dose: 2 puff Documented by: Albuterol Sulfate (Albuterol Hfa Inhaler) 2 puff INHALATION RT-QID PRN PRN Reason: Shortness Of Breath Or Wheezing Alprazolam (Alprazolam 0.25 Mg Tab) 0.25 mg PO TID PRN PRN Reason: Anxiety Last Admin: 06/11/21 08:16 Dose: 0.25 mg Documented by: Ascorbic Acid (Ascorbic Acid 500 Mg Tab) 500 mg PO DAILY [facility] Last Admin: 06/11/21 08:17 Dose: 500 mg Documented by: Aspirin (Aspirin 81 Mg) 81 mg PO DAILY [facility] Last Admin: 06/11/21 08:17 Dose: 81 mg Documented by: Baricitinib (Baricitinib 2 Mg Tablet) 4 mg PO DAILY [facility] Stop: 06/17/21 09:01 Last Admin: 06/11/21 08:17 Dose: 4 mg Documented by: Benzonatate (Benzonatate 100 Mg Cap) 200 mg PO TID [facility] Last Admin: 06/11/21 08:16 Dose: 200 mg Documented by: Cholecalciferol (Cholecalciferol 25 Mcg (1000 Iu) Tablet) 25 mcg PO DAILY [facility] Last Admin: 06/11/21 08:16 Dose: 25 mcg Documented by: Cyanocobalamin (Cyanocobalamin 500 Mcg Tab) 1,000 mcg PO DAILY [facility] Last Admin: 06/11/21 08:16 Dose: 1,000 mcg Documented by: Enoxaparin Sodium (Enoxaparin 40 Mg/0.4 Ml Syringe) 40 mg SQ DAILY [facility] Last Admin: 06/11/21 08:16 Dose: 40 mg Documented by: Guaifenesin/Dextromethorphan (Guaifenesin-Dm 100-10mg/5ml 10 Ml Cup) 10 ml PO Q6HR PRN PRN Reason: Cough Last Admin: 06/09/21 00:55 Dose: 10 ml Documented by: Methylprednisolone Sodium Succinate (Methylprednisolone Sod Succi 125 Mg/2 Ml Vial) 60 mg IV Q6HR [facility] Last Admin: 06/11/21 05:35 Dose: 60 mg Documented by: Metoprolol Tartrate (Metoprolol Tartrate 25 Mg Tab) 25 mg PO DAILY [facility] Last Admin: 06/11/21 08:17 Dose: 25 mg Documented by: Ondansetron HCl (Ondansetron Odt 8 Mg Tab.Rapdis) 8 mg PO Q8HR PRN PRN Reason: Nausea And Vomiting Pantoprazole Sodium (Pantoprazole 40 Mg Tablet) 40 mg PO AC-BID [facility] Last Admin: 06/11/21 08:17 Dose: 40 mg Documented by: Senna (Sennosides 8.6 Mg Tab) 8.6 mg PO BID [facility] Last Admin: 06/11/21 08:16 Dose: 8.6 mg Documented by: Zinc Sulfate (Zinc Sulfate 220 Mg Cap) 220 mg PO DAILY [facility] Last Admin: 06/11/21 08:16 Dose: 220 mg Documented by: Physical exam: Gen: This is a 75-year-old male awake, alert and oriented 3, well-developed, well-nourished, anxious, on 60% airvo and non-rebreather 15L HEENT: Head is atraumatic, normocephalic. Pupils equal, round. Sclerae is anicteric. NECK: Supple. No JVD. No lymphadenopathy. No thyromegaly. LUNGS: Diminished breath sounds bilaterally with scattered coarse rhonchi noted. No intercostal retractions. HEART: Regular rate and rhythm. No murmur. ABDOMEN: Soft. Bowel sounds are present. No masses. No tenderness. EXTREMITIES: No pedal edema. No calf tenderness. NEUROLOGICAL: Patient is awake, alert and oriented x3. Cranial nerves 2 through 12 are grossly intact. Diffusely weak Assessment: Acute COVID-19 infection with acute component of interstitial pneumonia, bilateral with acute hypoxic respiratory failure and possible sepsis secondary to COVID-19 Lactic acidosis secondary to above Extensive interstitial bilateral COVID-19 pneumonia Elevated white blood count possibly secondary to above Possible subsegmental pulmonary embolism ruled out History of atrial fibrillation Anxiety Remote history of nicotine dependence GI prophylaxis: Protonix DVT prophylaxis: subcutaneous Lovenox Full code Plan: Recommend to continue with current medications and continue with inhalers, IV steroids, lovenox, and vitamin supplements. D-dimer is elevated once again today and will increase subcutaneous Lovenox to twice daily. Continue to wean FiO2 as tolerated as patient is currently maintained on 15 L nonrebreather along with continued use airvo. Patient receiving Baracitinib. Pulmonary and infectious disease following. Patient has incentive spirometer at the bedside and instructed and encouraged the patient to continue with incentive spirometer use at least 10 times every hour while awake and increased activity as tolerated. Patient also encouraged position changes and proning while in bed. Patient is extremely weak and taking longer to recover respiratory cardozo. Prognosis remains extremely guarded. Objective - Vital Signs Vital signs: Vital Signs Temp 96.0 F L 06/11/21 05:26 Pulse 75 06/11/21 05:26 Resp 23 06/11/21 05:26 BP 134/66 06/11/21 05:26 Pulse Ox 93 L 06/11/21 05:26 Intake & Output 06/10/21 06/11/21 06/11/21 18:59 06:59 18:59 Intake Total 1999 700 Output Total 2099 Balance 1999 -1399 Intake: Intake, IV Titration 400 220 Amount Sodium Chloride 0.9% 1, 400 220 000 ml @ 50 mls/hr IV . Q20H [facility] Rx#:[id number] Oral 1600 480 Output: Urine 2100 Other: Voiding Method Urinal # Voids 4 # Bowel Movements 0 - Labs CBC & Chem 7: 06/11/21 06:41 06/11/21 06:41 Labs: Abnormal Lab Results - Last 24 Hours (Table) 06/11/21 06/11/21 06/11/21 Range/Units 06:41 06:41 06:41 WBC 18.6 H (3.8-10.6) k/uL Neutrophils # 17.7 H (1.3-7.7) k/uL Lymphocytes # 0.2 L (1.0-4.8) k/uL D-Dimer 18.25 H (<0.60) mg/L FEU BUN (9-20) mg/dL Glucose (74-99) mg/dL ALT (4-49) U/L Alkaline Phosphatase (38-126) U/L Lactate Dehydrogenase 1968 H (313-618) U/L C-Reactive Protein 1.5 H (<1.0) mg/dL Total Protein (6.3-8.2) g/dL Albumin (3.5-5.0) g/dL 06/11/21 Range/Units 06:41 WBC (3.8-10.6) k/uL Neutrophils # (1.3-7.7) k/uL Lymphocytes # (1.0-4.8) k/uL D-Dimer (<0.60) mg/L FEU BUN 24 H (9-20) mg/dL Glucose 140 H (74-99) mg/dL ALT 88 H (4-49) U/L Alkaline Phosphatase 168 H (38-126) U/L Lactate Dehydrogenase (313-618) U/L C-Reactive Protein (<1.0) mg/dL Total Protein 5.8 L (6.3-8.2) g/dL Albumin 2.8 L (3.5-5.0) g/dL
--- NOTE | 2021-06-11 15:25 | P.PN ---
Subjective Progress Note Date: 06/11/21 06/11/2021, I'm seeing the patient for a follow-up. On today's evaluation, the patient's oxygen requirements have gone up. The patient is currently pulse oxing 88% on high flow oxygen with a flow of 60 L and an FiO2 of 84%. This is a 75-year-old male patient with a COVID-19 related pneumonia. The patient was positive for COVID-19 on 05/24/2021 and the patient has been a hospital since 06/02/2021. The patient continues to be on a combination of Solu-Medrol and Baricitinib. In terms of his blood work, the patient has a d-dimer of 18.25 hyperlipidemia as a day. The pro-calcitonin level has not been elevated. His Lovenox dose was adjusted to 40 mg a few twice a day.His complaint remains dry cough. Is complaining of cough and and he is not responding well to Tessalon Perles. It was a dose of 18.6 with hemoglobin 13.7. His LDH level is on the rise and is currently up to 1968 and a CRP level is at 1.5. Pro-calcitonin level from few days back was 0.08. Objective - Vital Signs Vital signs: Vital Signs Temp 97.9 F 06/11/21 14:00 Pulse 90 06/11/21 14:00 Resp 22 06/11/21 14:00 BP 135/64 06/11/21 14:00 Pulse Ox 88 L 06/11/21 14:00 Intake & Output 06/10/21 06/11/21 06/11/21 18:59 06:59 18:59 Intake Total 1999 700 Output Total 2100 Balance 1999 -1400 Intake: Intake, IV Titration 400 220 Amount Sodium Chloride 0.9% 1, 400 220 000 ml @ 50 mls/hr IV . Q20H [facility] Rx#:[id number] Oral 1600 480 Output: Urine 2100 Other: Voiding Method Urinal # Voids 4 2 # Bowel Movements 0 - Exam Mild respiratory distress, oriented 3. Currently on nasal O2 at 60liters, fio2 84%. Also using a nonrebreather mass. Mild conversational dyspnea, and no use of accessory muscles. HEENT examination is grossly unremarkable. Neck supple. Full range of motion. No adenopathy thyromegaly or neck vein distention. Cardiovascular examination reveals regular rhythm rate. S1-S2 normal. No S3 or S4. No discernible murmur noted. . Heart sounds are distant. Lungs reveal coarse bilateral rhonchi. No wheezes or crackles. Breath sounds equal bilaterally. Saturations are 95 % on 15 L high flow nasal cannula. Abdomen soft bowel sounds are heard. No masses or tenderness. Extremities are intact. No cyanosis clubbing or edema. Skin is without rash or lesion Neurologic examination is brief but nonfocal. - Labs CBC & Chem 7: 06/11/21 06:41 06/11/21 06:41 Labs: Abnormal Lab Results - Last 24 Hours (Table) 06/11/21 06/11/21 06/11/21 Range/Units 06:41 06:41 06:41 WBC 18.6 H (3.8-10.6) k/uL Neutrophils # 17.7 H (1.3-7.7) k/uL Lymphocytes # 0.2 L (1.0-4.8) k/uL D-Dimer 18.25 H (<0.60) mg/L FEU BUN (9-20) mg/dL Glucose (74-99) mg/dL ALT (4-49) U/L Alkaline Phosphatase (38-126) U/L Lactate Dehydrogenase 1968 H (313-618) U/L C-Reactive Protein 1.5 H (<1.0) mg/dL Total Protein (6.3-8.2) g/dL Albumin (3.5-5.0) g/dL 06/11/21 Range/Units 06:41 WBC (3.8-10.6) k/uL Neutrophils # (1.3-7.7) k/uL Lymphocytes # (1.0-4.8) k/uL D-Dimer (<0.60) mg/L FEU BUN 24 H (9-20) mg/dL Glucose 140 H (74-99) mg/dL ALT 88 H (4-49) U/L Alkaline Phosphatase 168 H (38-126) U/L Lactate Dehydrogenase (313-618) U/L C-Reactive Protein (<1.0) mg/dL Total Protein 5.8 L (6.3-8.2) g/dL Albumin 2.8 L (3.5-5.0) g/dL Assessment and Plan Plan: 1 Acute hypoxemic respiratory failure secondary to coronavirus associated pneumonia. On today's evaluation, the patient has a mixed picture. His chest x-ray shows improvement in the right sided pulmonary infiltration. His d-dimer and LDH level is slightly elevated. He remains on 60 L with an FiO2 of 84%. Clinically, he is feeling slightly improved. 2 acute COVID-19 related pneumonia with diffuse but the pulmonary infiltrates and diffuse groundglass pulmonary changes 3 elevated inflammatory markers secondary to above 4 shortness of breath secondary to above 5 History of chronic atrial fibrillation. 6 Anxiety Plan Inflammatory markers for tomorrow to be repeated including of the a CRP and D dimers Continue IV Solu-Medrol at a dose of 60 mg every 6 hours Continue Baricitinib Chest x-ray was noted from today Monitor closely the oxygenation and try to wean off the oxygenation if saturation remains above 90% Continue home medications We'll continue to follow
[2021-06-11] MEDS: guaiFENesin-DM 100-10MG/5ML 10 ML CUP PO PRN (16:59)
--- NOTE | 2021-06-11 18:47 | PN ---
PROGRESS NOTE DATE OF SERVICE: 06/11/2021 REASON FOR FOLLOWUP: COVID-19 pneumonia. INTERVAL HISTORY: The patient is afebrile. The patient is breathing comfortably. Complaining of more cough, not bringing up any sputum. No chest pain. No abdominal pain or any diarrhea. PHYSICAL EXAMINATION: Blood pressure is 135/64, pulse of 90, temperature 97.9. He is on room air. General description is an elderly male up in the chair in no distress. Respiratory system: Unlabored breathing, decreased breath sounds in the base, with no wheeze. Heart S1, S2. Regular rate and rhythm. Abdomen soft, no tenderness. LABS: Hemoglobin is 13.6, white count 18.6, creatinine 0.70. DIAGNOSTIC IMPRESSION AND PLAN: Patient with acute respiratory failure secondary to Covid 19 pneumonia in this patient who did have very slow clinical response but some improvement. X-rays with persistent infiltrate. Patient is covered with Solu-Medrol, zinc and ascorbic acid to continue while monitoring clinical course closely. Continue supportive care. MMODL / IJN: [id number] /
[2021-06-11] MEDS: ENOXAPARIN 60 MG/0.6 ML SYRINGE SQ SCH (20:53)
[2021-06-12] MEDS: methylPREDNISolone SOD SUCCI 125 MG/2 ML VIAL IV SCH ×5 (05:06→23:14)
[2021-06-12 07:04] LABS: Basophils # (A) 0.1 k/uL (0-0.2); Basophils % (A) 0 %; Eosinophils # (A) 0.3 k/uL (0-0.7); Eosinophils % (A) 1 %; HCT 44.5 % (39.0-53.0); HGB 14.1 gm/dL (13.0-17.5); Lymphocytes # (A) 0.2 k/uL (1.0-4.8); Lymphocytes % (A) 1 %; MCH 29.2 pg (25.0-35.0); MCHC 31.6 g/dL (31.0-37.0); MCV 92.2 fL (80.0-100.0); Mean Platelet Volume 8.2; Monocytes # (A) 0.5 k/uL (0-1.0); Monocytes % (A) 2 %; Neutrophils # (A) 22.7 k/uL (1.3-7.7); Neutrophils % (A) 96 %; Platelet Count 326 k/uL (150-450); RBC 4.83 m/uL (4.30-5.90); WBC 23.7 k/uL (3.8-10.6)
[2021-06-12] MEDS: METOPROLOL TARTRATE 25 MG TAB PO SCH (07:26)
[2021-06-12] MEDS: PANTOPRAZOLE 40 MG TABLET PO SCH ×2 (07:26→15:05)
[2021-06-12] MEDS: ASCORBIC ACID 500 MG TAB PO SCH (07:26)
[2021-06-12] MEDS: CHOLECALCIFEROL 25 MCG (1000 IU) TABLET PO SCH (07:26)
[2021-06-12] MEDS: ALPRAZolam 0.25 MG TAB PO PRN ×2 (07:26→21:12)
[2021-06-12] MEDS: ENOXAPARIN 60 MG/0.6 ML SYRINGE SQ SCH ×2 (07:26→21:12)
[2021-06-12] MEDS: CYANOCOBALAMIN 500 MCG TAB PO SCH (07:26)
[2021-06-12] MEDS: ZINC SULFATE 220 MG CAP PO SCH (07:26)
[2021-06-12] MEDS: ASPIRIN 81 MG PO SCH (07:27)
[2021-06-12] MEDS: SENNOSIDES 8.6 MG TAB PO SCH ×2 (07:27→21:12)
[2021-06-12] MEDS: BENZONATATE 100 MG CAP PO SCH ×3 (07:27→21:12)
[2021-06-12] MEDS: BARICITINIB 2 MG TABLET PO SCH (07:27)
[2021-06-12 07:50] LABS: ALT 87 U/L (4-49); AST 46 U/L (17-59); African American GFR (CKD) >90 (>60 ml/min/1.73 sqM); Albumin 2.9 g/dL (3.5-5.0); Albumin/Globulin Ratio 0.9; Alkaline Phosphatase 183 U/L (38-126); Anion Gap 8 mmol/L; Blood Urea Nitrogen 28 mg/dL (9-20); Calcium 8.4 mg/dL (8.4-10.2); Carbon Dioxide 22 mmol/L (22-30); Chloride 109 mmol/L (98-107); Globulin 3.2 g/dL; Glucose 133 mg/dL (74-99); Non-African American GFR(CKD) >90 (>60 ml/min/1.73 sqM); Potassium 4.4 mmol/L (3.5-5.1); Sodium 139 mmol/L (137-145); Total Bilirubin 1.3 mg/dL (0.2-1.3); Total Protein 6.1 g/dL (6.3-8.2)
[2021-06-12] MEDS: ALBUTEROL HFA INHALER INHALATION SCH ×4 (08:53→20:13)
[2021-06-12] MEDS: guaiFENesin-DM 100-10MG/5ML 10 ML CUP PO PRN (12:01)
--- NOTE | 2021-06-12 12:29 | P.PN ---
Subjective Progress Note Date: 06/12/21 On today's evaluation of 06/12/2021, essentially the same and the patient remains on high flow oxygen at 60 L with an FiO2 of 84%. No major change in his oxygen flow requirements. No major change in his oxygenation. His pulse ox is currently in the order of 91% and there is not a whole lot of room for weaning at this point in time. He remains on IV Solu-Medrol. He is also on baricitinib and he is completing the course. In terms of his inflammatory markers, his pro- calcitonin was nonelevated. He had an elevated d-dimer of 18.2. He is currently on anticoagulation with Lovenox after milligrams subcu every 12 hours and this adjustment of the dose was done because of the elevated D dimers. His LDH level was also elevated from yesterday and so was the CRP level. His angiogram from 06/08/2021 showed no evidence of any pulmonary embolism and was consistent with COVID-19 related. As such, the patient is slow to recover. He is still requiring high flow oxygen. Rest of the blood work from today shows a white Rachel 20 3.7 with a hemoglobin of 14.1. Lymphopenia with a lymphocyte count of 0.2. Electrolytes are normal creatinine is at 0.6, there is still some mild transaminitis with a ALT of 87, AST of 87, total protein of 6.4 with an albumin of 2.9. Objective - Vital Signs Vital signs: Vital Signs Temp 97.3 F L 06/12/21 10:00 Pulse 63 06/12/21 10:00 Resp 17 06/12/21 10:00 BP 112/69 06/12/21 10:00 Pulse Ox 91 L 06/12/21 11:57 Intake & Output 06/11/21 06/12/21 06/12/21 18:59 06:59 18:59 Intake Total 600 Output Total 600 Balance 0 Intake: Oral 600 Output: Urine 600 Other: # Voids 2 1 2 # Bowel Movements 1 - Exam Mild respiratory distress, oriented 3. Currently on nasal O2 at 60 liters, fio2 84%. Also using a nonrebreather mass. Mild conversational dyspnea, and no use of accessory muscles. HEENT examination is grossly unremarkable. Neck supple. Full range of motion. No adenopathy thyromegaly or neck vein distention. Cardiovascular examination reveals regular rhythm rate. S1-S2 normal. No S3 or S4. No discernible murmur noted. . Heart sounds are distant. Lungs reveal coarse bilateral rhonchi. No wheezes or crackles. Breath sounds equal bilaterally. Saturations are 95 % on 15 L high flow nasal cannula. Abdomen soft bowel sounds are heard. No masses or tenderness. Extremities are intact. No cyanosis clubbing or edema. Skin is without rash or lesion Neurologic examination is brief but nonfocal. - Labs CBC & Chem 7: 06/12/21 06:32 06/12/21 06:32 Labs: Abnormal Lab Results - Last 24 Hours (Table) 06/12/21 06/12/21 Range/Units 06:32 06:32 WBC 23.7 H (3.8-10.6) k/uL Neutrophils # 22.7 H (1.3-7.7) k/uL Lymphocytes # 0.2 L (1.0-4.8) k/uL Chloride 109 H (98-107) mmol/L BUN 28 H (9-20) mg/dL Creatinine 0.62 L (0.66-1.25) mg/dL Glucose 133 H (74-99) mg/dL ALT 87 H (4-49) U/L Alkaline Phosphatase 183 H (38-126) U/L Total Protein 6.1 L (6.3-8.2) g/dL Albumin 2.9 L (3.5-5.0) g/dL Assessment and Plan Plan: 1 Acute hypoxemic respiratory failure secondary to coronavirus associated pneumonia. On today's evaluation, the patient has a mixed picture. His chest x-ray shows improvement in the right sided pulmonary infiltration. His d-dimer and LDH level is slightly elevated. He remains on 60 L with an FiO2 of 84%. Clinically, he is feeling slightly improved. Clinically stable and overall oxygenation remains unchanged compared to yesterday . His d-dimer was elevated. Lovenox dose was adjusted. He remains on Solu-Medrol and is completing the course of Baricitinib 2 acute COVID-19 related pneumonia with diffuse but the pulmonary infiltrates and diffuse groundglass pulmonary changes 3 elevated inflammatory markers secondary to above 4 shortness of breath secondary to above 5 History of chronic atrial fibrillation. 6 Anxiety Plan Inflammatory markers for tomorrow to be repeated including of the a CRP and D dimers Continue IV Solu-Medrol at a dose of 60 mg every 6 hours Continue Baricitinib Monitor closely the oxygenation and try to wean off the oxygenation if saturation remains above 90% Continue home medications, no much progress compared to yesterday. Blood work was reviewed. We'll continue to follow. We'll continue to follow
--- NOTE | 2021-06-12 16:35 | P.PN ---
Subjective Progress Note Date: 06/12/21 This is a 75-year-old male who was recently admitted with COVID-19 infection with acute hypoxic respiratory failure and is being closely monitored. Pulmonary following closely and patient is maintained on dexamethasone along with Lovenox and vitamin and zinc supplements. Patient currently maintained on 15 L high flow via nasal cannula with supplemental use of 15 L nonrebreather. Patient states his breathing is slightly improved and not requiring a nonrebreather as often. Instructed the patient to use incentive spirometer and increase activity as tolerated. Patient continues to be extremely weak and will have PT/OT evaluate the patient once more stable. 06/06/2021 Patient is seen in follow-up this morning states his shortness of breath has slightly worsened and his recovery time and working to breathe has become more difficult. Patient is continued on 15 L high flow along with nonrebreather intermittently and having to use it more frequently today he states. Incentive spirometer at the bedside and instructed the patient to continue to use at least 10 times every hour while awake and encouraged increased activity as tolerated. Patient states he walked to the bathroom with assistance and became extremely dyspneic. Patient is afebrile. D-dimer is 4.72 with a WBC of 16 and hemoglobin is stable at 15.4. Sodium is 138 with a potassium of 4.5 and current creatinine is 0.63. LDH is elevated at 2492 and CRP is 6.5. Chest x-ray today shows findings consistent with COVID-19 pneumonia with bilateral interstitial and airspace disease present. 06/07/2021 Patient is seen and evaluated in follow up this morning and is having increasing shortness of breath and on 15L high flow via NC and 15 L non-rebreather. Patient has been back in bed and attempting position changes frequently along with prone position. Patient continues on lovenox, baracitinib, vitamin and zinc supplement s,and steroids. Pulmonary following closely. 06/10/2021 Patient is seen in follow up this morning and is now maintained on airvo at 60% and continues to be extremely dyspneic with minimal exertion. Patient also continues with 15L Non rebreather as needed. Patient is maintained on lovenox along with baricitinib and IV steroids with pulmonary following. Patient states he has no reserve and taking longer periods of time to recover with attempting to position change or use the urinal. 06/11/2021 Patient is seen in follow-up and evaluated this morning and is continued on Airvo and maintaining oxygen saturations in the low 90s. Pulmonary following closely. Patient is afebrile. Patient is continued on vitamin and zinc supplements along with Baricitinib and subcutaneous Lovenox along with IV steroids and will continue. Patient's d-dimer today is elevated at 18.25 and will increase Lovenox to 50 subcu twice daily. White blood count today is 18.6 and hemoglobin is stable at 13.7, sodium is 139 with a potassium of 4.3 current creatinine is 0.7. Inflammatory markers are elevated with some trending down and CRP is 1.5, LDH is 1968 and alk phos is 168. Patient is afebrile. Patient continues to be extremely anxious and will continue Xanax as needed. Encouraged increase activity as tolerated and continued position changes with incentive spirometer use. 06/12/2021 Patient is seen in follow-up this morning with no acute issues noted overnight. Patient continues on Airvo with a flow rate of 55 and FiO2 of 80% maintaining oxygen saturations above 90%. Pulmonary following closely and we'll continue to wean as tolerated. Patient continues on Lovenox twice daily along with vitamin and zinc supplements and continued on IV steroids along with albuterol and Baricitinib. White blood count is 23.7 with a hemoglobin of 14.1, sodium is 139 with a potassium of 4.4 and current creatinine is 0.62. Will repeat chest x-ray along with inflammatory markers in the morning. Review of systems: Constitutional: reports of fatigue, no reports of fever, or chills, reports extreme anxiety Cardiovascular: No reports of chest pain or palpitations Respiratory: Reports continued shortness of breath with no worsening dyspnea today GI: No reports of nausea, vomiting, or diarrhea : No reports of dysuria or retention Neurovascular: Reports generalized weakness Active Medications Acetaminophen (Acetaminophen Tab 325 Mg Tab) 650 mg PO Q6HR PRN PRN Reason: Fever and/ or Mild Pain Last Admin: 06/10/21 20:48 Dose: 650 mg Documented by: Albuterol Sulfate (Albuterol Hfa Inhaler) 2 puff INHALATION RT-QID [facility] Last Admin: 06/12/21 11:56 Dose: 2 puff Documented by: Albuterol Sulfate (Albuterol Hfa Inhaler) 2 puff INHALATION RT-QID PRN PRN Reason: Shortness Of Breath Or Wheezing Alprazolam (Alprazolam 0.25 Mg Tab) 0.25 mg PO TID PRN PRN Reason: Anxiety Last Admin: 06/12/21 07:26 Dose: 0.25 mg Documented by: Ascorbic Acid (Ascorbic Acid 500 Mg Tab) 500 mg PO DAILY [facility] Last Admin: 06/12/21 07:26 Dose: 500 mg Documented by: Aspirin (Aspirin 81 Mg) 81 mg PO DAILY [facility] Last Admin: 06/12/21 07:27 Dose: 81 mg Documented by: Baricitinib (Baricitinib 2 Mg Tablet) 4 mg PO DAILY [facility] Stop: 06/17/21 09:01 Last Admin: 06/12/21 07:27 Dose: 4 mg Documented by: Benzonatate (Benzonatate 100 Mg Cap) 200 mg PO TID [facility] Last Admin: 06/12/21 15:05 Dose: 200 mg Documented by: Cholecalciferol (Cholecalciferol 25 Mcg (1000 Iu) Tablet) 25 mcg PO DAILY [facility] Last Admin: 06/12/21 07:26 Dose: 25 mcg Documented by: Cyanocobalamin (Cyanocobalamin 500 Mcg Tab) 1,000 mcg PO DAILY [facility] Last Admin: 06/12/21 07:26 Dose: 1,000 mcg Documented by: Enoxaparin Sodium (Enoxaparin 60 Mg/0.6 Ml Syringe) 50 mg SQ BID [facility] Last Admin: 06/12/21 07:26 Dose: 50 mg Documented by: Guaifenesin/Dextromethorphan (Guaifenesin-Dm 100-10mg/5ml 10 Ml Cup) 10 ml PO Q6HR PRN PRN Reason: Cough Last Admin: 06/12/21 12:01 Dose: 10 ml Documented by: Methylprednisolone Sodium Succinate (Methylprednisolone Sod Succi 125 Mg/2 Ml Vial) 60 mg IV Q6HR [facility] Last Admin: 06/12/21 12:01 Dose: 60 mg Documented by: Metoprolol Tartrate (Metoprolol Tartrate 25 Mg Tab) 25 mg PO DAILY [facility] Last Admin: 06/12/21 07:26 Dose: 25 mg Documented by: Ondansetron HCl (Ondansetron Odt 8 Mg Tab.Rapdis) 8 mg PO Q8HR PRN PRN Reason: Nausea And Vomiting Pantoprazole Sodium (Pantoprazole 40 Mg Tablet) 40 mg PO AC-BID [facility] Last Admin: 06/12/21 15:05 Dose: 40 mg Documented by: Senna (Sennosides 8.6 Mg Tab) 8.6 mg PO BID [facility] Last Admin: 06/12/21 07:27 Dose: 8.6 mg Documented by: Zinc Sulfate (Zinc Sulfate 220 Mg Cap) 220 mg PO DAILY [facility] Last Admin: 06/12/21 07:26 Dose: 220 mg Documented by: Physical exam: Gen: This is a 75-year-old male awake, alert and oriented 3, well-developed, well-nourished, anxious, on 55% airvo HEENT: Head is atraumatic, normocephalic. Pupils equal, round. Sclerae is anicteric. NECK: Supple. No JVD. No lymphadenopathy. No thyromegaly. LUNGS: Diminished breath sounds bilaterally with scattered coarse rhonchi noted. No intercostal retractions. HEART: Regular rate and rhythm. No murmur. ABDOMEN: Soft. Bowel sounds are present. No masses. No tenderness. EXTREMITIES: No pedal edema. No calf tenderness. NEUROLOGICAL: Patient is awake, alert and oriented x3. Cranial nerves 2 through 12 are grossly intact. Diffusely weak Assessment: Acute COVID-19 infection with acute component of interstitial pneumonia, bilateral with acute hypoxic respiratory failure and possible sepsis secondary to COVID-19 Lactic acidosis secondary to above Extensive interstitial bilateral COVID-19 pneumonia Elevated white blood count possibly secondary to above Possible subsegmental pulmonary embolism ruled out History of atrial fibrillation Anxiety Remote history of nicotine dependence GI prophylaxis: Protonix DVT prophylaxis: subcutaneous Lovenox Full code Plan: Recommend to continue with current medications and continue with inhalers, IV steroids, lovenox, and vitamin supplements. Will repeat chest x-ray along with labs and inflammatory markers in the morning. Patient to continue on subcutaneous Lovenox twice daily with repeat d-dimer in the morning as well. Continue to wean FiO2 as tolerated as patient is currently maintained on continued use airvo. Patient receiving Baracitinib. Pulmonary and infectious disease following. Patient has incentive spirometer at the bedside and instructed and encouraged the patient to continue with incentive spirometer use at least 10 times every hour while awake and increased activity as tolerated. Patient also encouraged position changes and proning while in bed. Patient is extremely weak and continues to feel extremely short of breath and longer recovery time with position changes. Prognosis remains extremely guarded. Objective - Vital Signs Vital signs: Vital Signs Temp 98.8 F 06/12/21 05:40 Pulse 76 06/12/21 05:40 Resp 19 06/12/21 05:40 BP 131/63 06/12/21 05:40 Pulse Ox 88 L 06/12/21 08:53 Intake & Output 06/11/21 06/12/21 06/12/21 18:59 06:59 18:59 Intake Total 600 Output Total 600 Balance 0 Intake: Oral 600 Output: Urine 600 Other: # Voids 2 1 # Bowel Movements 1 - Labs CBC & Chem 7: 06/12/21 06:32 06/12/21 06:32 Labs: Abnormal Lab Results - Last 24 Hours (Table) 06/12/21 06/12/21 Range/Units 06:32 06:32 WBC 23.7 H (3.8-10.6) k/uL Neutrophils # 22.7 H (1.3-7.7) k/uL Lymphocytes # 0.2 L (1.0-4.8) k/uL Chloride 109 H (98-107) mmol/L BUN 28 H (9-20) mg/dL Creatinine 0.62 L (0.66-1.25) mg/dL Glucose 133 H (74-99) mg/dL ALT 87 H (4-49) U/L Alkaline Phosphatase 183 H (38-126) U/L Total Protein 6.1 L (6.3-8.2) g/dL Albumin 2.9 L (3.5-5.0) g/dL
[2021-06-12] MEDS: ACETAMINOPHEN TAB 325 MG TAB PO PRN (21:15)
[2021-06-13] MEDS: methylPREDNISolone SOD SUCCI 125 MG/2 ML VIAL IV SCH (04:47)
[2021-06-13] MEDS: ALPRAZolam 0.25 MG TAB PO PRN ×2 (07:31→19:55)
[2021-06-13] MEDS: ASPIRIN 81 MG PO SCH (07:31)
[2021-06-13] MEDS: PANTOPRAZOLE 40 MG TABLET PO SCH ×2 (07:31→15:36)
[2021-06-13] MEDS: CYANOCOBALAMIN 500 MCG TAB PO SCH (07:32)
[2021-06-13] MEDS: ENOXAPARIN 60 MG/0.6 ML SYRINGE SQ SCH (07:32)
[2021-06-13] MEDS: BENZONATATE 100 MG CAP PO SCH ×3 (07:32→19:56)
[2021-06-13] MEDS: CHOLECALCIFEROL 25 MCG (1000 IU) TABLET PO SCH (07:32)
[2021-06-13] MEDS: ZINC SULFATE 220 MG CAP PO SCH (07:32)
[2021-06-13] MEDS: SENNOSIDES 8.6 MG TAB PO SCH ×3 (07:32→21:34)
[2021-06-13] MEDS: METOPROLOL TARTRATE 25 MG TAB PO SCH (07:32)
[2021-06-13] MEDS: ASCORBIC ACID 500 MG TAB PO SCH (07:32)
[2021-06-13] MEDS: BARICITINIB 2 MG TABLET PO SCH (07:33)
[2021-06-13] MEDS: ALBUTEROL HFA INHALER INHALATION SCH ×4 (08:33→20:23)
[2021-06-13 08:48] LABS: ALT 85 U/L (4-49); AST 76 U/L (17-59); African American GFR (CKD) >90 (>60 ml/min/1.73 sqM); Albumin 2.9 g/dL (3.5-5.0); Albumin/Globulin Ratio 0.9; Alkaline Phosphatase 144 U/L (38-126); Anion Gap 9 mmol/L; Blood Urea Nitrogen 26 mg/dL (9-20); Carbon Dioxide 20 mmol/L (22-30); Chloride 108 mmol/L (98-107); Globulin 3.4 g/dL; Glucose 120 mg/dL (74-99); Non-African American GFR(CKD) >90 (>60 ml/min/1.73 sqM); Sodium 137 mmol/L (137-145); Total Bilirubin 1.9 mg/dL (0.2-1.3); Total Protein 6.3 g/dL (6.3-8.2)
--- NOTE | 2021-06-13 08:50 | PN ---
PROGRESS NOTE DATE OF SERVICE: 06/12/2021 REASON FOR FOLLOWUP: COVID-19 pneumonia. INTERVAL HISTORY: Patient is afebrile. The patient is breathing slightly comfortably, still requiring high-flow oxygen with AIRVO. The patient denies having any chest pain. He did have a cough with occasional sputum production. No nausea, no vomiting. No abdominal pain or diarrhea. PHYSICAL EXAMINATION: Blood pressure 142/68 with a pulse of 68. Temperature 97.7. He is 90% on 35% FiO2. General description is an elderly male up in the chair in no distress. Respiratory system: Unlabored breathing, coarse breath sounds at bases. No wheeze. Heart S1, S2. Regular rate and rhythm. Abdomen soft, no tenderness. LABS: Hemoglobin is 14.1, white count 23.7, BUN of 28, creatinine 0.62. DIAGNOSTIC IMPRESSION AND PLAN: 1. Patient with acute COVID-19 pneumonia. Clinical condition remains to be critical. dose has been adjusted up. Continue Solu-Medrol, zinc and ascorbic acid. 2. Elevated white count more likely steroid effect. Clinically, no evidence of any worsening infection. 3. Continue supportive care. MMODL / IJN: [id number] /
--- NOTE | 2021-06-13 09:04 | XR ---
EXAMINATION TYPE: XR chest 1V portable DATE OF EXAM: 06/13/2021 Comparison: 06/11/2021 Clinical History: 75-year-old male covid Findings: Heart upper limits of normal in size. Peripheral and lower lung patchy interstitial opacities show no significant change. No pleural effusion. Impression: Continued peripheral and lower lung interstitial infiltrates of COVID pneumonia without significant c hange.
[2021-06-13 09:11] LABS: Potassium 5.5 mmol/L (3.5-5.1)
[2021-06-13 11:20] LABS: Basophils % (A) 0 %; Eosinophils # (A) 0.1 k/uL (0-0.7); Eosinophils % (A) 0 %; HCT 39.8 % (39.0-53.0); HGB 13.8 gm/dL (13.0-17.5); Lymphocytes # (A) 0.6 k/uL (1.0-4.8); Lymphocytes % (A) 2 %; MCH 30.6 pg (25.0-35.0); MCHC 34.7 g/dL (31.0-37.0); MCV 88.1 fL (80.0-100.0); Mean Platelet Volume 9.3; Monocytes # (A) 0.9 k/uL (0-1.0); Monocytes % (A) 4 %; Neutrophils # (A) 21.9 k/uL (1.3-7.7); Neutrophils % (A) 93 %; Platelet Count 302 k/uL (150-450); RBC 4.52 m/uL (4.30-5.90); RDW 13.4 % (11.5-15.5); WBC 23.5 k/uL (3.8-10.6)
--- NOTE | 2021-06-13 15:35 | P.PN ---
Subjective Progress Note Date: 06/13/21 06/13/2021, the patient is currently on 55 L of oxygen along with 83% FiO2. His oxygen flow slightly improved compared to yesterday and slower knowing that the patient was on 60 L. His pulse ox is in the order of 88-90%. He remains on IV Solu-Medrol and Baricitinib has been completed. Inflammatory markers are not checked from today. Those need to be repeated knowing that the last inflammatory markers are from 06/03/2021. Last d-dimer was 18.25 on 06/11/2021. He also has some mild transaminitis. CT of the chest that was done on 06/03/2021 showed no evidence of any significant pulmonary embolism. It was consistent with COVID-19 related pneumonia. The subsequent CAT scan of the chest that was done using the CVA protocol and 06/08/2021 showed again no evidence of any pulmonary embolism. Doppler of the lower extremity done on 06/03/2021 was also negative. Is currently on Eliquis. His sputum was positive for yeast, likely secondary to chronic steroid use. As stated, the patient is on IV Solu-Medrol and the dose is tapered down to 40 mg every 8 hour Objective - Vital Signs Vital signs: Vital Signs Temp 98.1 F 06/13/21 13:27 Pulse 69 06/13/21 13:27 Resp 18 06/13/21 13:27 BP 157/66 06/13/21 13:27 Pulse Ox 90 L 06/13/21 13:27 Intake & Output 06/12/21 06/13/21 06/13/21 18:59 06:59 18:59 Other: Voiding Method Urinal # Voids 2 2 2 - Exam Mild respiratory distress, oriented 3. Currently on nasal O2 at 55 liters, fio2 84%. Also using a nonrebreather mass. Mild conversational dyspnea, and no use of accessory muscles. HEENT examination is grossly unremarkable. Neck supple. Full range of motion. No adenopathy thyromegaly or neck vein distention. Cardiovascular examination reveals regular rhythm rate. S1-S2 normal. No S3 or S4. No discernible murmur noted. . Heart sounds are distant. Lungs reveal coarse bilateral rhonchi. No wheezes or crackles. Breath sounds equal bilaterally. Abdomen soft bowel sounds are heard. No masses or tenderness. Extremities are intact. No cyanosis clubbing or edema. Skin is without rash or lesion Neurologic examination is brief but nonfocal. - Labs CBC & Chem 7: 06/13/21 09:59 06/13/21 07:05 Labs: Abnormal Lab Results - Last 24 Hours (Table) 06/13/21 06/13/21 Range/Units 07:05 09:59 WBC 23.5 H (3.8-10.6) k/uL Neutrophils # 21.9 H (1.3-7.7) k/uL Lymphocytes # 0.6 L (1.0-4.8) k/uL Potassium 5.5 H (3.5-5.1) mmol/L Chloride 108 H (98-107) mmol/L Carbon Dioxide 20 L (22-30) mmol/L BUN 26 H (9-20) mg/dL Creatinine 0.55 L (0.66-1.25) mg/dL Glucose 120 H (74-99) mg/dL Calcium 8.0 L (8.4-10.2) mg/dL Total Bilirubin 1.9 H (0.2-1.3) mg/dL AST 76 H (17-59) U/L ALT 85 H (4-49) U/L Alkaline Phosphatase 144 H (38-126) U/L Albumin 2.9 L (3.5-5.0) g/dL Microbiology - Last 24 Hours (Table) 06/02/21 11:31 Gram Stain - Preliminary Sputum Sputum Culture - Preliminary Gram Neg Bacilli Essence albicans Assessment and Plan Plan: 1 Acute hypoxemic respiratory failure secondary to coronavirus associated pneumonia. On today's evaluation, the patient has a mixed picture. His chest x-ray shows improvement in the right sided pulmonary infiltration. His d-dimer and LDH level is slightly elevated. He remains on 55 L with an FiO2 of 84%. Clinically, he is feeling slightly improved. Clinically stable and overall oxygenation remains unchanged compared to yesterday . His d-dimer was elevated. Lovenox dose was adjusted. He remains on Solu-Medrol and is completing the course of Baricitinib 2 acute COVID-19 related pneumonia with diffuse but the pulmonary infiltrates a nd diffuse groundglass pulmonary changes 3 elevated inflammatory markers secondary to above 4 shortness of breath secondary to above 5 History of chronic atrial fibrillation. 6 Anxiety 7 yeast in the sputum, likely secondary to immunosuppression provided by Solu- Medrol and Baricitinib. Plan No much improvement in the patient's condition. There has been some slight drop in his oxygen flow to 55 L. Nevertheless, his overall condition is the same. Rashad Orellana been tapered. He is completing his course of Baricitinib finished Inflammatory markers for tomorrow to be repeated including of the a CRP and D dimers Continue IV Solu-Medrol Continue Baricitinib Monitor closely the oxygenation and try to wean off the oxygenation if saturation remains above 90% Continue home medications, no much progress compared to yesterday. Blood work was reviewed. We'll continue to follow.
[2021-06-13] MEDS: methylPREDNISolone SOD SUCCI 40 MG/ML 1 ML VIAL IV SCH ×2 (15:37→23:31)
[2021-06-13] MEDS ORDERED: FLUCONAZOLE 100 MG TAB PO ONE (15:45)
[2021-06-13] MEDS: CEFEPIME 2 GM in SODIUM CHLORIDE 0.9% 100 ML IVPB SCH ×2 (16:21→23:30)
--- NOTE | 2021-06-13 16:21 | P.PN ---
Subjective Progress Note Date: 06/13/21 This is a 75-year-old male who was recently admitted with COVID-19 infection with acute hypoxic respiratory failure and is being closely monitored. Pulmonary following closely and patient is maintained on dexamethasone along with Lovenox and vitamin and zinc supplements. Patient currently maintained on 15 L high flow via nasal cannula with supplemental use of 15 L nonrebreather. Patient states his breathing is slightly improved and not requiring a nonrebreather as often. Instructed the patient to use incentive spirometer and increase activity as tolerated. Patient continues to be extremely weak and will have PT/OT evaluate the patient once more stable. 06/06/2021 Patient is seen in follow-up this morning states his shortness of breath has slightly worsened and his recovery time and working to breathe has become more difficult. Patient is continued on 15 L high flow along with nonrebreather intermittently and having to use it more frequently today he states. Incentive spirometer at the bedside and instructed the patient to continue to use at least 10 times every hour while awake and encouraged increased activity as tolerated. Patient states he walked to the bathroom with assistance and became extremely dyspneic. Patient is afebrile. D-dimer is 4.72 with a WBC of 16 and hemoglobin is stable at 15.4. Sodium is 138 with a potassium of 4.5 and current creatinine is 0.63. LDH is elevated at 2492 and CRP is 6.5. Chest x-ray today shows findings consistent with COVID-19 pneumonia with bilateral interstitial and airspace disease present. 06/07/2021 Patient is seen and evaluated in follow up this morning and is having increasing shortness of breath and on 15L high flow via NC and 15 L non-rebreather. Patient has been back in bed and attempting position changes frequently along with prone position. Patient continues on lovenox, baracitinib, vitamin and zinc supplement s,and steroids. Pulmonary following closely. 06/10/2021 Patient is seen in follow up this morning and is now maintained on airvo at 60% and continues to be extremely dyspneic with minimal exertion. Patient also continues with 15L Non rebreather as needed. Patient is maintained on lovenox along with baricitinib and IV steroids with pulmonary following. Patient states he has no reserve and taking longer periods of time to recover with attempting to position change or use the urinal. 06/11/2021 Patient is seen in follow-up and evaluated this morning and is continued on Airvo and maintaining oxygen saturations in the low 90s. Pulmonary following closely. Patient is afebrile. Patient is continued on vitamin and zinc supplements along with Baricitinib and subcutaneous Lovenox along with IV steroids and will continue. Patient's d-dimer today is elevated at 18.25 and will increase Lovenox to 50 subcu twice daily. White blood count today is 18.6 and hemoglobin is stable at 13.7, sodium is 139 with a potassium of 4.3 current creatinine is 0.7. Inflammatory markers are elevated with some trending down and CRP is 1.5, LDH is 1968 and alk phos is 168. Patient is afebrile. Patient continues to be extremely anxious and will continue Xanax as needed. Encouraged increase activity as tolerated and continued position changes with incentive spirometer use. 06/12/2021 Patient is seen in follow-up this morning with no acute issues noted overnight. Patient continues on Airvo with a flow rate of 55 and FiO2 of 80% maintaining oxygen saturations above 90%. Pulmonary following closely and we'll continue to wean as tolerated. Patient continues on Lovenox twice daily along with vitamin and zinc supplements and continued on IV steroids along with albuterol and Baricitinib. White blood count is 23.7 with a hemoglobin of 14.1, sodium is 139 with a potassium of 4.4 and current creatinine is 0.62. Will repeat chest x-ray along with inflammatory markers in the morning. 06/13/2021 Patient is seen and evaluated in follow-up as morning and continues to be on Airvo. Patient appears to be more raspy with some sputum and congested today with a hoarse voice. Infectious disease and pulmonary following closely. Sputum culture from 06/02 just today preliminary showing gram-negative bacilli along with Essence albicans and patient is being started on IV cefepime with repeat sputum culture ordered along with oral Diflucan. White blood count is 23.5 with hemoglobin of 13.8, sodium is 137 and potassium is 5.5 and current creatinine is 0.55. LFTs are mildly elevated. Repeat d-dimer along with CRP and LDH have been ordered. Will repeat a.m. labs. Chest x-ray today shows con tinued peripheral and lower lung interstitial infiltrates of Covid pneumonia without significant change. Review of systems: Constitutional: reports of fatigue, no reports of fever, or chills Cardiovascular: No reports of chest pain or palpitations Respiratory: Reports continued shortness of breath with no worsening dyspnea today, reports raspy harsh voice GI: No reports of nausea, vomiting, or diarrhea : No reports of dysuria or retention Neurovascular: Reports generalized weakness Active Medications Acetaminophen (Acetaminophen Tab 325 Mg Tab) 650 mg PO Q6HR PRN PRN Reason: Fever and/ or Mild Pain Last Admin: 06/12/21 21:15 Dose: 650 mg Documented by: Albuterol Sulfate (Albuterol Hfa Inhaler) 2 puff INHALATION RT-QID [facility] Last Admin: 06/13/21 15:31 Dose: 2 puff Documented by: Albuterol Sulfate (Albuterol Hfa Inhaler) 2 puff INHALATION RT-QID PRN PRN Reason: Shortness Of Breath Or Wheezing Alprazolam (Alprazolam 0.25 Mg Tab) 0.25 mg PO TID PRN PRN Reason: Anxiety Last Admin: 06/13/21 07:31 Dose: 0.25 mg Documented by: Apixaban (Apixaban 5 Mg Tab) 5 mg PO BID [facility]; Protocol Ascorbic Acid (Ascorbic Acid 500 Mg Tab) 500 mg PO DAILY [facility] Last Admin: 06/13/21 07:32 Dose: 500 mg Documented by: Aspirin (Aspirin 81 Mg) 81 mg PO DAILY [facility] Last Admin: 06/13/21 07:31 Dose: 81 mg Documented by: Baricitinib (Baricitinib 2 Mg Tablet) 4 mg PO DAILY [facility] Stop: 06/17/21 09:01 Last Admin: 06/13/21 07:33 Dose: 4 mg Documented by: Benzonatate (Benzonatate 100 Mg Cap) 200 mg PO TID [facility] Last Admin: 06/13/21 15:36 Dose: 200 mg Documented by: Cholecalciferol (Cholecalciferol 25 Mcg (1000 Iu) Tablet) 25 mcg PO DAILY [facility] Last Admin: 06/13/21 07:32 Dose: 25 mcg Documented by: Cyanocobalamin (Cyanocobalamin 500 Mcg Tab) 1,000 mcg PO DAILY [facility] Last Admin: 06/13/21 07:32 Dose: 1,000 mcg Documented by: Fluconazole (Fluconazole 100 Mg Tab) 100 mg PO DAILY [facility] Guaifenesin/Dextromethorphan (Guaifenesin-Dm 100-10mg/5ml 10 Ml Cup) 10 ml PO Q6HR PRN PRN Reason: Cough Last Admin: 06/12/21 12:01 Dose: 10 ml Documented by: Methylprednisolone Sodium Succinate (Methylprednisolone Sod Succi 40 Mg/Ml 1 Ml Vial) 40 mg IV Q8HR [facility] Last Admin: 06/13/21 15:37 Dose: 40 mg Documented by: Metoprolol Tartrate (Metoprolol Tartrate 25 Mg Tab) 25 mg PO DAILY [facility] Last Admin: 06/13/21 07:32 Dose: 25 mg Documented by: Ondansetron HCl (Ondansetron Odt 8 Mg Tab.Rapdis) 8 mg PO Q8HR PRN PRN Reason: Nausea And Vomiting Pantoprazole Sodium (Pantoprazole 40 Mg Tablet) 40 mg PO AC-BID [facility] Last Admin: 06/13/21 15:36 Dose: 40 mg Documented by: Senna (Sennosides 8.6 Mg Tab) 8.6 mg PO BID [facility] Last Admin: 06/13/21 07:32 Dose: 8.6 mg Documented by: Zinc Sulfate (Zinc Sulfate 220 Mg Cap) 220 mg PO DAILY [facility] Last Admin: 06/13/21 07:32 Dose: 220 mg Documented by: Physical exam: Gen: This is a 75-year-old male awake, alert and oriented 3, well-developed, well-nourished, anxious, on 55% airvo HEENT: Head is atraumatic, normocephalic. Pupils equal, round. Sclerae is anicteric. Oral mucosa is consistent with white patches NECK: Supple. No JVD. No lymphadenopathy. No thyromegaly. LUNGS: Diminished breath sounds bilaterally with scattered coarse rhonchi noted. No intercostal retractions. HEART: Regular rate and rhythm. No murmur. ABDOMEN: Soft. Bowel sounds are present. No masses. No tenderness. EXTREMITIES: No pedal edema. No calf tenderness. NEUROLOGICAL: Patient is awake, alert and oriented x3. Cranial nerves 2 through 12 are grossly intact. Diffusely weak Assessment: Acute COVID-19 infection with acute component of interstitial pneumonia, bilateral with acute hypoxic respiratory failure and possible sepsis secondary to COVID-19 Lactic acidosis secondary to above Initial sputum culture showing Essence albicans and gram-negative bacilli and will start patient on IV cefepime and repeat sputum culture, infectious disease following closely Oral thrush with white patches noted and being started on Diflucan, sputum cultures from 06/02/2021 preliminary today resulting with gram-negative bacilli and Essence albicans Extensive interstitial bilateral COVID-19 pneumonia Elevated white blood count possibly secondary to above Possible subsegmental pulmonary embolism ruled out History of atrial fibrillation Anxiety Remote history of nicotine dependence GI prophylaxis: Protonix DVT prophylaxis: Was maintained on Lovenox twice daily and initiating eliquis Full code Plan: Recommend to continue with current medications and continue with inhalers, IV steroids, and vitamin supplements. Patient was continued on subcutaneous Lovenox twice daily and will transition to eliquis 5 mg twice a day. Continue to wean FiO2 as tolerated as patient is currently maintained on continued use airvo with an flow rate of 55% and FiO2 of 82. Patient receiving Baracitinib. Pulmonary and infectious disease following. Patient has incentive spirometer at the bedside and instructed and encouraged the patient to continue with incentive spirometer use at least 10 times every hour while awake and increased activity as tolerated. Patient also encouraged position changes and proning while in bed. Patient is extremely weak and continues to feel extremely short of breath and longer recovery time with position changes. Patient also noted with a hoarse raspy voice and states he has been having some increase in phlegm production and mouth irritation and appears to have some white patches noted and started on Diflucan. Preliminary sputum culture from 06/02/2021 showing gram negative bacilli along with Essence albicans and will add IV cefepime and repeat sputum culture. Prognosis remains extremely guarded. Objective - Vital Signs Vital signs: Vital Signs Temp 98.2 F 06/13/21 06:00 Pulse 84 06/13/21 06:00 Resp 20 06/13/21 06:00 BP 114/43 06/13/21 06:00 Pulse Ox 91 L 06/13/21 06:00 Intake & Output 06/12/21 06/13/21 06/13/21 18:59 06:59 18:59 Other: Voiding Method Urinal # Voids 2 2 - Labs CBC & Chem 7: 06/13/21 09:59 06/13/21 07:05 Labs: Microbiology - Last 24 Hours (Table) 06/02/21 11:31 Sputum Culture - Preliminary Sputum
[2021-06-13 17:14] LABS: C Reactive Protein 2.1 mg/dL (<1.0)
[2021-06-13] MEDS: APIXABAN 5 MG TAB PO SCH (19:56)
[2021-06-13] MEDS: ACETAMINOPHEN TAB 325 MG TAB PO PRN (22:44)
--- NOTE | 2021-06-14 01:05 | PN ---
PROGRESS NOTE DATE OF SERVICE: 06/13/2021 REASON FOR FOLLOWUP: Pneumonia. INTERVAL HISTORY: The patient is afebrile. The patient is breathing slightly comfortably. Still requiring AIRVO. The patient denies any chest pain. Did have a cough with occasional sputum. No abdominal pain or diarrhea. PHYSICAL EXAMINATION: Blood pressure 153/73 with a pulse of 83, temperature 98.1. He is 90% on 55% FiO2. General description is an elderly male in the bed in no distress. Respiratory system: Unlabored breathing, decreased intensity of breath sounds. No wheeze. Heart S1, S2. Regular rate and rhythm. Abdomen soft, no tenderness. LABS: Hemoglobin is 13.8, white count of 23.5, BUN of 26, creatinine 0.55. D-dimer is down to 12.9. DIAGNOSTIC IMPRESSION AND PLAN: Patient with acute COVID-19 pneumonia in this patient currently on Eliquis, baricitinib. However the sputum done on the now showing a gram-negative and a question of possible real pathogen. We will repeat sputum, check a procalcitonin. Antibiotic currently on cefepime. Discussed with the admitting team. Continue supportive care. MMODL / IJN: [id number] /
[2021-06-14] MEDS: ALBUTEROL HFA INHALER INHALATION SCH ×5 (07:29→19:09)
[2021-06-14 07:55] LABS: Basophils % (A) 0 %; Eosinophils # (A) 0.1 k/uL (0-0.7); Eosinophils % (A) 0 %; HCT 42.7 % (39.0-53.0); HGB 13.7 gm/dL (13.0-17.5); Lymphocytes # (A) 0.2 k/uL (1.0-4.8); Lymphocytes % (A) 1 %; MCH 29.8 pg (25.0-35.0); MCHC 32.2 g/dL (31.0-37.0); MCV 92.8 fL (80.0-100.0); Mean Platelet Volume 8.2; Monocytes # (A) 0.5 k/uL (0-1.0); Monocytes % (A) 3 %; Neutrophils # (A) 19.3 k/uL (1.3-7.7); Neutrophils % (A) 96 %; Platelet Count 310 k/uL (150-450); RDW 13.4 % (11.5-15.5); WBC 20.2 k/uL (3.8-10.6)
[2021-06-14 08:08] LABS: ALT 89 U/L (4-49); AST 48 U/L (17-59); African American GFR (CKD) >90 (>60 ml/min/1.73 sqM); Albumin 2.7 g/dL (3.5-5.0); Albumin/Globulin Ratio 0.9; Alkaline Phosphatase 168 U/L (38-126); Anion Gap 6 mmol/L; Blood Urea Nitrogen 26 mg/dL (9-20); C Reactive Protein 3.2 mg/dL (<1.0); Calcium 8.2 mg/dL (8.4-10.2); Carbon Dioxide 22 mmol/L (22-30); Chloride 108 mmol/L (98-107); Glucose 115 mg/dL (74-99); Non-African American GFR(CKD) >90 (>60 ml/min/1.73 sqM); Sodium 136 mmol/L (137-145); Total Bilirubin 1.4 mg/dL (0.2-1.3); Total Protein 5.7 g/dL (6.3-8.2)
[2021-06-14] MEDS: PANTOPRAZOLE 40 MG TABLET PO SCH ×2 (08:13→16:53)
[2021-06-14] MEDS: CYANOCOBALAMIN 500 MCG TAB PO SCH (08:13)
[2021-06-14] MEDS: METOPROLOL TARTRATE 25 MG TAB PO SCH (08:13)
[2021-06-14] MEDS: ASPIRIN 81 MG PO SCH (08:14)
[2021-06-14] MEDS: BARICITINIB 2 MG TABLET PO SCH (08:14)
[2021-06-14] MEDS: BENZONATATE 100 MG CAP PO SCH ×3 (08:14→21:11)
[2021-06-14] MEDS: FLUCONAZOLE 100 MG TAB PO SCH (08:14)
[2021-06-14] MEDS: ASCORBIC ACID 500 MG TAB PO SCH (08:14)
[2021-06-14] MEDS: APIXABAN 5 MG TAB PO SCH ×2 (08:14→21:10)
[2021-06-14] MEDS: CHOLECALCIFEROL 25 MCG (1000 IU) TABLET PO SCH (08:14)
[2021-06-14] MEDS: methylPREDNISolone SOD SUCCI 40 MG/ML 1 ML VIAL IV SCH (08:14)
[2021-06-14] MEDS: SENNOSIDES 8.6 MG TAB PO SCH ×2 (08:14→21:11)
[2021-06-14] MEDS: ZINC SULFATE 220 MG CAP PO SCH (08:14)
[2021-06-14] MEDS: CEFEPIME 2 GM in SODIUM CHLORIDE 0.9% 100 ML IVPB SCH ×2 (08:15→16:52)
[2021-06-14 08:21] LABS: LDH 2178 U/L (313-618); Potassium 4.3 mmol/L (3.5-5.1)
[2021-06-14] MEDS: ALPRAZolam 0.25 MG TAB PO PRN ×2 (08:30→22:22)
--- NOTE | 2021-06-14 15:07 | P.PN ---
Subjective Progress Note Date: 06/14/21 06/14/2021, the patient continues to be on the same flow of 55 L with an FiO2 of 83%. Pulse ox is 92%. He remains on IV Solu-Medrol 40 mg every 8 hours and remained on Baricitinib which is completed. He was found to have extensive oropharyngeal candidiasis and he was also started on Diflucan. He remains on Eliquis. Doppler of the lower extremity from 06/03/2021 was negative. Meanwhile, inflammatory markers showed a drop in a d-dimer down to 11.02 and the patient's LDH level is also down to 2178 and the CRP level is down to 3.2. Renal function stable and the creatinine is at 2.5. Mean is a 26. White cell count today is 20.2 with a hemoglobin of 13.7. He is feeling weak. His swallowing is improved as the patient's candidiasis being treated with Diflucan. He tries to do some passive range of motion. His pulse ox is order of 92%. He is afebrile and the rest of the hemodynamics are essentially stable. There was a sputum sample that was collected on 06/02/2021 the shank turner to be positive for Pseudomonas. This currently on IV cefepime. I'm going to stop the Baricitinib for now. I'm also going to taper him to a prednisone Objective - Vital Signs Vital signs: Vital Signs Temp 98.3 F 06/14/21 13:44 Pulse 72 06/14/21 13:44 Resp 19 06/14/21 13:44 BP 137/66 06/14/21 13:44 Pulse Ox 88 L 06/14/21 13:44 Intake & Output 06/13/21 06/14/21 06/14/21 18:59 06:59 18:59 Output Total 750 500 Balance -750 -500 Output: Urine 750 500 Other: Voiding Method Urinal # Voids 2 - Exam Mild respiratory distress, oriented 3. Currently on nasal O2 at 55 liters, fio2 84%. Also using a nonrebreather mass. Mild conversational dyspnea, and no use of accessory muscles. HEENT examination is grossly unremarkable. Neck supple. Full range of motion. No adenopathy thyromegaly or neck vein distention. Cardiovascular examination reveals regular rhythm rate. S1-S2 normal. No S3 or S4. No discernible murmur noted. . Heart sounds are distant. Lungs reveal coarse bilateral rhonchi. No wheezes or crackles. Breath sounds equal bilaterally. Abdomen soft bowel sounds are heard. No masses or tenderness. Extremities are intact. No cyanosis clubbing or edema. Skin is without rash or lesion Neurologic examination is brief but nonfocal. - Labs CBC & Chem 7: 06/14/21 06:36 06/14/21 06:36 Labs: Abnormal Lab Results - Last 24 Hours (Table) 06/13/21 06/13/21 06/14/21 Range/Units 07:05 16:10 06:36 WBC 20.2 H (3.8-10.6) k/uL Neutrophils # 19.3 H (1.3-7.7) k/uL Lymphocytes # 0.2 L (1.0-4.8) k/uL D-Dimer 12.99 H (<0.60) mg/L FEU Sodium (137-145) mmol/L Chloride (98-107) mmol/L BUN (9-20) mg/dL Creatinine (0.66-1.25) mg/dL Glucose (74-99) mg/dL Calcium (8.4-10.2) mg/dL Total Bilirubin (0.2-1.3) mg/dL ALT (4-49) U/L Alkaline Phosphatase (38-126) U/L Lactate Dehydrogenase 4119 H (313-618) U/L C-Reactive Protein 2.1 H (<1.0) mg/dL Total Protein (6.3-8.2) g/dL Albumin (3.5-5.0) g/dL 06/14/21 06/14/21 Range/Units 06:36 06:36 WBC (3.8-10.6) k/uL Neutrophils # (1.3-7.7) k/uL Lymphocytes # (1.0-4.8) k/uL D-Dimer 11.02 H (<0.60) mg/L FEU Sodium 136 L (137-145) mmol/L Chloride 108 H (98-107) mmol/L BUN 26 H (9-20) mg/dL Creatinine 0.57 L (0.66-1.25) mg/dL Glucose 115 H (74-99) mg/dL Calcium 8.2 L (8.4-10.2) mg/dL Total Bilirubin 1.4 H (0.2-1.3) mg/dL ALT 89 H (4-49) U/L Alkaline Phosphatase 168 H (38-126) U/L Lactate Dehydrogenase 2178 H (313-618) U/L C-Reactive Protein 3.2 H (<1.0) mg/dL Total Protein 5.7 L (6.3-8.2) g/dL Albumin 2.7 L (3.5-5.0) g/dL Microbiology - Last 24 Hours (Table) 06/02/21 11:31 Gram Stain - Final Sputum Sputum Culture - Final Pseudomonas aeruginosa Essence albicans Assessment and Plan Plan: 1 Acute hypoxemic respiratory failure secondary to coronavirus associated pneumonia. On today's evaluation, the patient has a mixed picture. His chest x-ray shows improvement in the right sided pulmonary infiltration. His d-dimer and LDH level is slightly elevated. He remains on 55 L with an FiO2 of 84%. Clinically, he is feeling slightly improved. Clinically stable and overall oxygenation remains unchanged compared to yesterday . His d-dimer was elevated. Lovenox dose was adjusted. He remains on Solu-Medrol and is completing the course of Baricitinib 2 acute COVID-19 related pneumonia with diffuse but the pulmonary infiltrates a nd diffuse groundglass pulmonary changes 3 elevated inflammatory markers secondary to above 4 shortness of breath secondary to above 5 History of chronic atrial fibrillation. 6 Anxiety 7 Pseudomonas and yeast in the sputum, likely secondary to immunosuppression provided by Solu-Medrol and Baricitinib. Plan Discontinue the Baricitinib This continued IV Solu-Medrol and put the patient on prednisone 40 mg by mouth daily Repeat sputum samples Keep the oxygen flow at 55 L and drop the FiO2 down to 75% if possible Inflammatory markers including d-dimer and LDH are declining and levels Continue Eliquis Continue Diflucan Monitor closely the oxygenation and try to wean off the oxygenation if saturation remains above 90% Continue home medications, no much progress compared to yesterday. Blood work was reviewed. We'll continue to follow.
[2021-06-14] MEDS ORDERED: BENZOCAINE/MENTHOL LOZENG 1 EACH LOZENGE MUCOUS MEM PRN (15:55)
--- NOTE | 2021-06-14 15:55 | P.PN ---
Subjective Progress Note Date: 06/14/21 This is a 75-year-old male who was recently admitted with COVID-19 infection with acute hypoxic respiratory failure and is being closely monitored. Pulmonary following closely and patient is maintained on dexamethasone along with Lovenox and vitamin and zinc supplements. Patient currently maintained on 15 L high flow via nasal cannula with supplemental use of 15 L nonrebreather. Patient states his breathing is slightly improved and not requiring a nonrebreather as often. Instructed the patient to use incentive spirometer and increase activity as tolerated. Patient continues to be extremely weak and will have PT/OT evaluate the patient once more stable. 06/06/2021 Patient is seen in follow-up this morning states his shortness of breath has slightly worsened and his recovery time and working to breathe has become more difficult. Patient is continued on 15 L high flow along with nonrebreather intermittently and having to use it more frequently today he states. Incentive spirometer at the bedside and instructed the patient to continue to use at least 10 times every hour while awake and encouraged increased activity as tolerated. Patient states he walked to the bathroom with assistance and became extremely dyspneic. Patient is afebrile. D-dimer is 4.72 with a WBC of 16 and hemoglobin is stable at 15.4. Sodium is 138 with a potassium of 4.5 and current creatinine is 0.63. LDH is elevated at 2492 and CRP is 6.5. Chest x-ray today shows findings consistent with COVID-19 pneumonia with bilateral interstitial and airspace disease present. 06/07/2021 Patient is seen and evaluated in follow up this morning and is having increasing shortness of breath and on 15L high flow via NC and 15 L non-rebreather. Patient has been back in bed and attempting position changes frequently along with prone position. Patient continues on lovenox, baracitinib, vitamin and zinc supplement s,and steroids. Pulmonary following closely. 06/10/2021 Patient is seen in follow up this morning and is now maintained on airvo at 60% and continues to be extremely dyspneic with minimal exertion. Patient also continues with 15L Non rebreather as needed. Patient is maintained on lovenox along with baricitinib and IV steroids with pulmonary following. Patient states he has no reserve and taking longer periods of time to recover with attempting to position change or use the urinal. 06/11/2021 Patient is seen in follow-up and evaluated this morning and is continued on Airvo and maintaining oxygen saturations in the low 90s. Pulmonary following closely. Patient is afebrile. Patient is continued on vitamin and zinc supplements along with Baricitinib and subcutaneous Lovenox along with IV steroids and will continue. Patient's d-dimer today is elevated at 18.25 and will increase Lovenox to 50 subcu twice daily. White blood count today is 18.6 and hemoglobin is stable at 13.7, sodium is 139 with a potassium of 4.3 current creatinine is 0.7. Inflammatory markers are elevated with some trending down and CRP is 1.5, LDH is 1968 and alk phos is 168. Patient is afebrile. Patient continues to be extremely anxious and will continue Xanax as needed. Encouraged increase activity as tolerated and continued position changes with incentive spirometer use. 06/12/2021 Patient is seen in follow-up this morning with no acute issues noted overnight. Patient continues on Airvo with a flow rate of 55 and FiO2 of 80% maintaining oxygen saturations above 90%. Pulmonary following closely and we'll continue to wean as tolerated. Patient continues on Lovenox twice daily along with vitamin and zinc supplements and continued on IV steroids along with albuterol and Baricitinib. White blood count is 23.7 with a hemoglobin of 14.1, sodium is 139 with a potassium of 4.4 and current creatinine is 0.62. Will repeat chest x-ray along with inflammatory markers in the morning. 06/13/2021 Patient is seen and evaluated in follow-up as morning and continues to be on Airvo. Patient appears to be more raspy with some sputum and congested today with a hoarse voice. Infectious disease and pulmonary following closely. Sputum culture from 06/02 just today preliminary showing gram-negative bacilli along with Essence albicans and patient is being started on IV cefepime with repeat sputum culture ordered along with oral Diflucan. White blood count is 23.5 with hemoglobin of 13.8, sodium is 137 and potassium is 5.5 and current creatinine is 0.55. LFTs are mildly elevated. Repeat d-dimer along with CRP and LDH have been ordered. Will repeat a.m. labs. Chest x-ray today shows con tinued peripheral and lower lung interstitial infiltrates of Covid pneumonia without significant change. 06/14/2021 Patient is seen and evaluated in follow-up this morning continues to be dyspneic and requesting to go to the bed as he has been sitting up in the chair all day. Patient has been started on Diflucan along with IV cefepime and sputum culture from 06/02/2021 resulted showing Pseudomonas aeruginosa along with Essence albicans. Infectious disease is following closely. Patient is completing Baricitinib and will be transitioned to oral prednisone taper with pulmonary following closely. Patient has been started on eliquis. D-dimer today has trended down to 11.02, LDH is 2178, CRP is 3.2, liver functions trending down. White blood count slightly trending down at 20.2 and hemoglobin is stable at 13.7, sodium is 136 with a potassium of 4.3 and current creatinine is 0.57. Continues to have a mildly raspy voice with some throat dryness and will add Cepacol. Review of systems: Constitutional: reports of fatigue, no reports of fever, or chills, reports dry throat Cardiovascular: No reports of chest pain or palpitations Respiratory: Reports continued shortness of breath with no worsening dyspnea today, reports raspy harsh voice that is slightly improved from yesterday GI: No reports of nausea, vomiting, or diarrhea : No reports of dysuria or retention Neurovascular: Reports generalized weakness Active Medications Acetaminophen (Acetaminophen Tab 325 Mg Tab) 650 mg PO Q6HR PRN PRN Reason: Fever and/ or Mild Pain Last Admin: 06/13/21 22:44 Dose: 650 mg Documented by: Albuterol Sulfate (Albuterol Hfa Inhaler) 2 puff INHALATION RT-QID [facility] Last Admin: 06/14/21 12:33 Dose: Not Given Documented by: Albuterol Sulfate (Albuterol Hfa Inhaler) 2 puff INHALATION RT-QID PRN PRN Reason: Shortness Of Breath Or Wheezing Alprazolam (Alprazolam 0.25 Mg Tab) 0.25 mg PO TID PRN PRN Reason: Anxiety Last Admin: 06/14/21 08:30 Dose: 0.25 mg Documented by: Apixaban (Apixaban 5 Mg Tab) 5 mg PO BID [facility]; Protocol Last Admin: 06/14/21 08:14 Dose: 5 mg Documented by: Ascorbic Acid (Ascorbic Acid 500 Mg Tab) 500 mg PO DAILY [facility] Last Admin: 06/14/21 08:14 Dose: 500 mg Documented by: Aspirin (Aspirin 81 Mg) 81 mg PO DAILY [facility] Last Admin: 06/14/21 08:14 Dose: 81 mg Documented by: Benzonatate (Benzonatate 100 Mg Cap) 200 mg PO TID [facility] Last Admin: 06/14/21 08:14 Dose: 200 mg Documented by: Cholecalciferol (Cholecalciferol 25 Mcg (1000 Iu) Tablet) 25 mcg PO DAILY [facility] Last Admin: 06/14/21 08:14 Dose: 25 mcg Documented by: Cyanocobalamin (Cyanocobalamin 500 Mcg Tab) 1,000 mcg PO DAILY [facility] Last Admin: 06/14/21 08:13 Dose: 1,000 mcg Documented by: Fluconazole (Fluconazole 100 Mg Tab) 100 mg PO DAILY [facility] Last Admin: 06/14/21 08:14 Dose: 100 mg Documented by: Guaifenesin/Dextromethorphan (Guaifenesin-Dm 100-10mg/5ml 10 Ml Cup) 10 ml PO Q6HR PRN PRN Reason: Cough Last Admin: 06/12/21 12:01 Dose: 10 ml Documented by: Cefepime HCl 2 gm/ Sodium (Chloride) 100 mls @ 25 mls/hr IVPB Q8HR [facility] Last Admin: 06/14/21 08:15 Dose: 25 mls/hr Documented by: Metoprolol Tartrate (Metoprolol Tartrate 25 Mg Tab) 25 mg PO DAILY [facility] Last Admin: 06/14/21 08:13 Dose: 25 mg Documented by: Ondansetron HCl (Ondansetron Odt 8 Mg Tab.Rapdis) 8 mg PO Q8HR PRN PRN Reason: Nausea And Vomiting Pantoprazole Sodium (Pantoprazole 40 Mg Tablet) 40 mg PO AC-BID [facility] Last Admin: 06/14/21 08:13 Dose: 40 mg Documented by: Prednisone (Prednisone 20 Mg Tab) 40 mg PO DAILY [facility] Senna (Sennosides 8.6 Mg Tab) 8.6 mg PO BID [facility] Last Admin: 06/14/21 08:14 Dose: 8.6 mg Documented by: Zinc Sulfate (Zinc Sulfate 220 Mg Cap) 220 mg PO DAILY [facility] Last Admin: 06/14/21 08:14 Dose: 220 mg Documented by: Physical exam: Gen: This is a 75-year-old male awake, alert and oriented 3, well-developed, well-nourished, on 55% airvo with intermittent use of 15 L nonrebreather HEENT: Head is atraumatic, normocephalic. Pupils equal, round. Sclerae is anicteric. Oral mucosa has white patches NECK: Supple. No JVD. No lymphadenopathy. No thyromegaly. LUNGS: Diminished breath sounds bilaterally with scattered coarse rhonchi noted. No intercostal retractions. HEART: Regular rate and rhythm. No murmur. ABDOMEN: Soft. Bowel sounds are present. No masses. No tenderness. EXTREMITIES: No pedal edema. No calf tenderness. NEUROLOGICAL: Patient is awake, alert and oriented x3. Cranial nerves 2 through 12 are grossly intact. Diffusely weak Assessment: Acute COVID-19 infection with acute component of interstitial pneumonia, bilateral with acute hypoxic respiratory failure and possible sepsis secondary to COVID-19 Lactic acidosis secondary to above Initial sputum culture showing Essence albicans and pseudomonas aeruginosa and has been started on IV cefepime and repeat sputum culture pending, infectious disease following closely Oral thrush with white patches noted and being started on Diflucan, sputum cultures from 06/02/2021 Essence albicans Extensive interstitial bilateral COVID-19 pneumonia Elevated white blood count possibly secondary to above Possible subsegmental pulmonary embolism ruled out History of atrial fibrillation Anxiety Remote history of nicotine dependence GI prophylaxis: Protonix DVT prophylaxis: On eliquis Full code Plan: Recommend to continue with current medications and continue with inhalers, starting oral steroids, and vitamin supplements. Patient has completed baricitinib. Patient has been transitioned to eliquis 5 mg twice a day. Continue to wean FiO2 as tolerated as patient is currently maintained on continued use airvo with an flow rate of 55% and FiO2 of 82. Pulmonary and infectious disease following. Patient has incentive spirometer at the bedside and instructed and encouraged the patient to continue with incentive spirometer use at least 10 times every hour while awake and increased activity as tolerated. Patient also encouraged position changes and proning while in bed. Patient is extremely weak and continues to feel extremely short of breath and longer recovery time with position changes. Patient also noted with a hoarse raspy voice and states he has been having some increase in phlegm production and mouth irritation and appears to have some white patches noted and started on Diflucan. sputum culture from 06/02/2021 finalized showing Pseudomonas aeruginosa and Essence albicans and will add IV cefepime and repeat sputum culture. Prognosis remains guarded. Objective - Vital Signs Vital signs: Vital Signs Temp 97.8 F 06/14/21 05:59 Pulse 72 06/14/21 05:59 Resp 22 06/14/21 05:59 BP 149/74 06/14/21 05:59 Pulse Ox 87 L 06/14/21 07:29 Intake & Output 06/13/21 06/14/21 06/14/21 18:59 06:59 18:59 Output Total 750 500 Balance -750 -500 Output: Urine 750 500 Other: Voiding Method Urinal # Voids 2 - Labs CBC & Chem 7: 06/14/21 06:36 06/14/21 06:36 Labs: Abnormal Lab Results - Last 24 Hours (Table) 06/13/21 06/13/21 06/13/21 Range/Units 07:05 09:59 16:10 WBC 23.5 H (3.8-10.6) k/uL Neutrophils # 21.9 H (1.3-7.7) k/uL Lymphocytes # 0.6 L (1.0-4.8) k/uL D-Dimer 12.99 H (<0.60) mg/L FEU Sodium (137-145) mmol/L Chloride (98-107) mmol/L BUN (9-20) mg/dL Creatinine (0.66-1.25) mg/dL Glucose (74-99) mg/dL Calcium (8.4-10.2) mg/dL Total Bilirubin (0.2-1.3) mg/dL ALT (4-49) U/L Alkaline Phosphatase (38-126) U/L Lactate Dehydrogenase 4119 H (313-618) U/L C-Reactive Protein 2.1 H (<1.0) mg/dL Total Protein (6.3-8.2) g/dL Albumin (3.5-5.0) g/dL 06/14/21 06/14/21 06/14/21 Range/Units 06:36 06:36 06:36 WBC 20.2 H (3.8-10.6) k/uL Neutrophils # 19.3 H (1.3-7.7) k/uL Lymphocytes # 0.2 L (1.0-4.8) k/uL D-Dimer 11.02 H (<0.60) mg/L FEU Sodium 136 L (137-145) mmol/L Chloride 108 H (98-107) mmol/L BUN 26 H (9-20) mg/dL Creatinine 0.57 L (0.66-1.25) mg/dL Glucose 115 H (74-99) mg/dL Calcium 8.2 L (8.4-10.2) mg/dL Total Bilirubin 1.4 H (0.2-1.3) mg/dL ALT 89 H (4-49) U/L Alkaline Phosphatase 168 H (38-126) U/L Lactate Dehydrogenase 2178 H (313-618) U/L C-Reactive Protein 3.2 H (<1.0) mg/dL Total Protein 5.7 L (6.3-8.2) g/dL Albumin 2.7 L (3.5-5.0) g/dL Microbiology - Last 24 Hours (Table) 06/02/21 11:31 Gram Stain - Preliminary Sputum Sputum Culture - Preliminary Gram Neg Bacilli Essence albicans
[2021-06-14] MEDS: ACETAMINOPHEN TAB 325 MG TAB PO PRN (22:22)
[2021-06-15] MEDS: CEFEPIME 2 GM in SODIUM CHLORIDE 0.9% 100 ML IVPB SCH ×4 (01:44→23:24)
[2021-06-15 06:02] LABS: Glucose,Whole Blood 102 mg/dL (75-99)
[2021-06-15 06:05] LABS: ABG Base Excess -0.7 mmol/L; ABG HCO3 25 mmol/L (21-25); ABG Oxygen Saturation 58.3 % (94-97); ABG PCO2 42 mmHg (35-45); ABG PH 7.37 (7.35-7.45); ABG TCO2 26 mmol/L (19-24); Allen Test Performed? Yes
[2021-06-15] MEDS: DEXMEDETOMIDINE/0.9% NACL(PMX) 400 MCG in EMPTY BAG 1 BAG IV SCH (06:13)
[2021-06-15 06:20] LABS: ABG PO2 32 mmHg (83-108)
--- NOTE | 2021-06-15 06:40 | PN ---
PROGRESS NOTE DATE OF SERVICE: 06/14/2021 REASON FOR FOLLOWUP: COVID-19 pneumonia. INTERVAL HISTORY: The patient is afebrile. The patient is breathing comfortably. Still complaining of cough and is bringing up some sputum. Patient denies having any chest pain. No nausea, vomiting, abdominal pain or diarrhea. PHYSICAL EXAMINATION: Blood pressure is 157/71 with a pulse of 79, temperature 98.3. He is 91% General description is an elderly male up in the bed in no distress. Respiratory system: Unlabored breathing with decreased breath sounds in the base. Heart S1, S2. Regular rate and rhythm. Abdomen soft, no tenderness. LABS: Hemoglobin 13, white count , BUN of 26, creatinine 0.57. Sputum showing Pseudomonas aeruginosa. DIAGNOSTIC IMPRESSION AND PLAN: 1. Patient with acute respiratory failure which is multifactorial in this patient who did have Covid 19 pneumonia. Patient is currently on Eliquis, prednisone, zinc and ascorbic acid. 2. Positive sputum cultures showing Pseudomonas with did have elevated white count. Currently on cefepime to continue short course and monitor clinical course closely. MMODL / IJN: [id number] /
--- NOTE | 2021-06-15 06:42 | XR ---
EXAMINATION TYPE: XR chest 1V portable DATE OF EXAM: 06/15/2021 CLINICAL HISTORY: Difficulty breathing progress study. COVID. TECHNIQUE: Single AP portable frontal view of the chest is obtained. COMPARISON: Chest x-ray from 2 days earlier FINDINGS: Heart size stable and upper limits of normal. Persistent reticulonodular increased marking s bilaterally with findings greatest in the lower lungs. Consolidation with air bronchograms retrocar diac region redemonstrated. No pleural effusion or pneumothorax seen. Osseous structures are intact. IMPRESSION: Persistent multifocal and confluent bilateral reticulonodular opacities consistent with k nown covid-19 infection more prominent in the lower lungs. No significant change from most recent x-r ay.
[2021-06-15] MEDS: PANTOPRAZOLE 40 MG TABLET PO SCH ×2 (07:00→16:57)
--- NOTE | 2021-06-15 07:32 | P.PN ---
Subjective Progress Note Date: 06/15/21 06/15/2021, the patient is transferred to the intensive care unit. Earlier this morning, as the patient was being moved to the bathroom, he desaturated and his pulse ox dropped significantly to low levels. He was on high flow oxygen at 15 L. He desaturated and his pulse ox dropped down to the low 50s. I put him on a BiPAP. He continued to be hypoxic and ultimately got transferred to the intens omero care unit. Initially, there was difficulties in establishing IV lines. On route to the ICU, the patient lost his IV line. 2 lines were established. He was started on Precedex drip. Currently is on a BiPAP and the pressures have been titrated up to 16/12 cm of water with an FiO2 of 20%. His current pulse ox is 83%. His breathing is unlabored. He still tachypneic. His respiratory rate is in the low 40s. Positive volumes above 700. Ventilation is above 24. His chest x-ray showing diffuse bilaterally pulmonary infiltrates. During this process, as the patient was being transferred to the ICU, the patient had a blood. This medication of 7.37 with a pCO2 of 43 and pO2 of 32 and the exact BiPAP setting of this looked gases not known, probably 10/ with an FiO2 of 100%. In any rate, blood work from today still pending. D-dimer from yesterday was elevated at 11.02. No new labs otherwise from today. His LDH was declining it was down to 2178. He did have pseudomonas aeruginosa in his sputum on 06/02/2021. A repeat sputum sample was sent. Based on that, the patient is currently on antibiotics. He is on IV cefepime. I'm also suggesting to stop the Baricitinib for now as I'm not absolutely sure there is any superinfection at this point in time. The patient remains on prednisone 40 mg by mouth daily. He is also on Eliquis for anticoagulation at a dose of 5 mg by mouth twice a day. He had extensive oropharyngeal candidiasis. For that reason, I started him on Diflucan 100 mg IV every 24 hours. His oropharyngeal candidiasis was improving and the patient's swallow mechanism and throat irritation had also improved. Objective - Vital Signs Vital signs: Vital Signs Temp 98.7 F 06/15/21 02:50 Pulse 66 10/02/21 02:50 Resp 19 06/15/21 02:50 BP 136/75 06/15/21 02:50 Pulse Ox 90 L 06/15/21 02:50 Intake & Output 06/14/21 06/15/21 06/15/21 18:59 06:59 18:59 Output Total 1400 Balance -1400 Output: Urine 1400 Other: Voiding Method Urinal - Exam Mild respiratory distress, oriented 3. The patient is quite anxious. His breathing is labored. He is currently on a BiPAP with a fullface mask and pressure of 16/12 with an FiO2 of 100%. He is using some accessory muscles of breathing. He was started on Precedex drip to control his anxiety and agitation. He is more synchronous at this point in time and his pulse ox is up to 83%. HEENT examination is grossly unremarkable. Neck supple. Full range of motion. No adenopathy thyromegaly or neck vein distention. Cardiovascular examination reveals regular rhythm rate. S1-S2 normal. No S3 or S4. No discernible murmur noted. . Heart sounds are distant. Lungs reveal coarse bilateral rhonchi. No wheezes or crackles. Breath sounds equal bilaterally. Abdomen soft bowel sounds are heard. No masses or tenderness. Extremities are intact. No cyanosis clubbing or edema. Skin is without rash or lesion Neurologic examination is brief but nonfocal. - Labs CBC & Chem 7: 06/14/21 06:36 06/14/21 06:36 Labs: Abnormal Lab Results - Last 24 Hours (Table) 06/14/21 06/14/21 06/14/21 Range/Units 06:36 06:36 06:36 WBC 20.2 H (3.8-10.6) k/uL Neutrophils # 19.3 H (1.3-7.7) k/uL Lymphocytes # 0.2 L (1.0-4.8) k/uL D-Dimer 11.02 H (<0.60) mg/L FEU ABG pO2 (83-108) mmHg ABG Total CO2 (19-24) mmol/L ABG O2 Saturation (94-97) % Sodium 136 L (137-145) mmol/L Chloride 108 H (98-107) mmol/L BUN 26 H (9-20) mg/dL Creatinine 0.57 L (0.66-1.25) mg/dL Glucose 115 H (74-99) mg/dL POC Glucose (mg/dL) (75-99) mg/dL Calcium 8.2 L (8.4-10.2) mg/dL Total Bilirubin 1.4 H (0.2-1.3) mg/dL ALT 89 H (4-49) U/L Alkaline Phosphatase 168 H (38-126) U/L Lactate Dehydrogenase 2178 H (313-618) U/L C-Reactive Protein 3.2 H (<1.0) mg/dL Total Protein 5.7 L (6.3-8.2) g/dL Albumin 2.7 L (3.5-5.0) g/dL 06/15/21 06/15/21 Range/Units 06:01 06:02 WBC (3.8-10.6) k/uL Neutrophils # (1.3-7.7) k/uL Lymphocytes # (1.0-4.8) k/uL D-Dimer (<0.60) mg/L FEU ABG pO2 32 L* (83-108) mmHg ABG Total CO2 26 H (19-24) mmol/L ABG O2 Saturation 58.3 L (94-97) % Sodium (137-145) mmol/L Chloride (98-107) mmol/L BUN (9-20) mg/dL Creatinine (0.66-1.25) mg/dL Glucose (74-99) mg/dL POC Glucose (mg/dL) 102 H (75-99) mg/dL Calcium (8.4-10.2) mg/dL Total Bilirubin (0.2-1.3) mg/dL ALT (4-49) U/L Alkaline Phosphatase (38-126) U/L Lactate Dehydrogenase (313-618) U/L C-Reactive Protein (<1.0) mg/dL Total Protein (6.3-8.2) g/dL Albumin (3.5-5.0) g/dL Microbiology - Last 24 Hours (Table) 06/14/21 15:21 Sputum Culture - Preliminary Sputum 06/02/21 11:31 Gram Stain - Final Sputum Sputum Culture - Final Pseudomonas aeruginosa Essence albicans Assessment and Plan Plan: 1 Acute hypoxemic respiratory failure secondary to coronavirus associated pneumonia. The patient had developed diffuse bilateral pulmonary infiltrates secondary to COVID-19 related pneumonia/ARDS. He was on high flow oxygen for a long period of time. He subsequently compensated this morning and was transferred to the intensive care unit where he was placed on a BiPAP currently at a pressure of 16/12 cm of water. His oxygenation is gradually improving his pulse is currently up to 83-85%. Chest x-rays consistent with diffuse bilateral pulmonary infiltrates. He remains on prednisone. Baricitinib was completed and discontinued. He had Pseudomonas in his sputum which is currently covered with IV cefepime. This could be a colonizer. No clear indication for any underlying supportive imposed infection with Pseudomonas. The patient also had developed extensive oropharyngeal candidiasis and the patient is currently on Diflucan. His pro-calcitonin level is at 0.03. His white cell count from yesterday was 20.2. Chest x-rays consistent with diffuse but the pulmonary infiltrates. We'll try to avoid intubation as much as possible. We'll use noninvasive positive pressure ventilation with BiPAP for now. Is however very likely the patient may further decompensated and may require intubation mechanical vent ilation. For now, his condition is more stable. We'll continue to monitor. His condition is extremely critical. Family will be informed. 2 acute COVID-19 related pneumonia with diffuse but the pulmonary infiltrates and diffuse groundglass pulmonary changes 3 elevated inflammatory markers secondary to above 4 shortness of breath secondary to above 5 History of chronic atrial fibrillation. 6 Anxiety 7 Pseudomonas and yeast in the sputum, likely secondary to immunosuppression provided by Solu-Medrol and Baricitinib. The patient is currently off Baricitinib. Solu Medrol was discontinued and the patient is currently on prednisone 8 extensive oropharyngeal candidiasis Plan Continue BiPAP for respiratory support of the current setting Establish an arterial line and repeated blood gases in few hours We'll try to establish triple-lumen catheter Awaiting follow-up blood work including LDH CRP and d-dimer His current cardiac rhythm is sinus. Nevertheless the patient is on Eliquis Re: atrial fibrillation. We'll continue Eliquis for now Continue Diflucan Continue cefepime Baricitinib has been completed and was discontinued yesterday Condition is critical with high likelihood of further decompensation requiring intubation mechanical ventilation. For that reason, the patient will be kept in the intensive care unit. Meanwhile he seems to be more symptoms with the BiPAP machine. We'll add Precedex. We'll titrate the dose. We'll give also morphine 2 mg every 1-2 hours for anxiety and shortness of breath and feeling of breathlessness. Avoid benzodiazepines. We'll continue to follow. Family will be informed. Condition is critical. Evaluation was done more than 30 minutes. Time with Patient: Greater than 30
[2021-06-15] MEDS: MORPHINE SULFATE 2 MG/ML SYRINGE IVP PRN ×2 (07:47→10:59)
[2021-06-15] MEDS: ALBUTEROL HFA INHALER INHALATION SCH ×4 (09:00→19:56)
[2021-06-15 10:12] LABS: ALT 79 U/L (4-49); AST 51 U/L (17-59); African American GFR (CKD) >90 (>60 ml/min/1.73 sqM); Albumin 2.3 g/dL (3.5-5.0); Albumin/Globulin Ratio 0.9; Alkaline Phosphatase 158 U/L (38-126); Anion Gap 7 mmol/L; Blood Urea Nitrogen 26 mg/dL (9-20); C Reactive Protein 4.6 mg/dL (<1.0); Calcium 7.7 mg/dL (8.4-10.2); Carbon Dioxide 20 mmol/L (22-30); Chloride 110 mmol/L (98-107); Globulin 2.6 g/dL; Glucose 81 mg/dL (74-99); Non-African American GFR(CKD) 90 (>60 ml/min/1.73 sqM); Sodium 137 mmol/L (137-145); Total Bilirubin 2.1 mg/dL (0.2-1.3); Total Protein 4.9 g/dL (6.3-8.2)
[2021-06-15 10:27] LABS: LDH 2277 U/L (313-618)
[2021-06-15] MEDS: CYANOCOBALAMIN 500 MCG TAB PO SCH (10:38)
[2021-06-15] MEDS: FLUCONAZOLE 100 MG TAB PO SCH (10:38)
[2021-06-15] MEDS: APIXABAN 5 MG TAB PO SCH ×2 (10:38→20:16)
[2021-06-15] MEDS: BENZONATATE 100 MG CAP PO SCH ×3 (10:38→21:54)
[2021-06-15] MEDS: METOPROLOL TARTRATE 25 MG TAB PO SCH (10:38)
[2021-06-15] MEDS: CHOLECALCIFEROL 25 MCG (1000 IU) TABLET PO SCH (10:38)
[2021-06-15] MEDS: ASCORBIC ACID 500 MG TAB PO SCH (10:38)
[2021-06-15] MEDS: ASPIRIN 81 MG PO SCH (10:38)
[2021-06-15] MEDS: ZINC SULFATE 220 MG CAP PO SCH (10:39)
[2021-06-15] MEDS: predniSONE 20 MG TAB PO SCH (10:39)
[2021-06-15] MEDS: SENNOSIDES 8.6 MG TAB PO SCH ×2 (10:39→20:16)
[2021-06-15 10:53] LABS: HCT 37.7 % (39.0-53.0); HGB 12.5 gm/dL (13.0-17.5); MCH 29.9 pg (25.0-35.0); MCHC 33.1 g/dL (31.0-37.0); MCV 90.4 fL (80.0-100.0); Mean Platelet Volume 9.6; Platelet Count 165 k/uL (150-450); RBC 4.17 m/uL (4.30-5.90); RDW 13.6 % (11.5-15.5); WBC 21.2 k/uL (3.8-10.6)
[2021-06-15] MEDS ORDERED: NOREPINEPHRIN 4 MG-0.9% NS PMX 4 MG/250 ML ML IV ONE (12:56)
[2021-06-15 13:23] LABS: Lymphocytes # (M) 0.42 k/uL (1.0-4.8); Monocytes # (M) 0.42 k/uL (0-1.0); Neutrophils # (M) 20.35 k/uL (1.3-7.7); Neutrophils % (M) 96 %; Nucleated Red Blood Cells 0 /100 WBC (0-0); Total Cells Counted 100
[2021-06-15] MEDS ORDERED: SODIUM CHLORIDE 0.9% 1,000 ML IV ONE ×2 (13:34→13:35)
--- NOTE | 2021-06-15 13:39 | P.PCN ---
Date of Procedure: 06/15/21 Preoperative Diagnosis: COVID-19 pneumonia, respiratory failure Postoperative Diagnosis: COVID-19 pneumonia respiratory failure Procedure(s) Performed: Central line, arterial line Anesthesia: local Surgeon: Cristiano Welsh Pathology: other Condition: critical Disposition: ICU Operative Findings: Central line Indication: Hemodynamic monitoring/Intravenous access. A time-out was completed verifying correct patient, procedure, site, positioning, and implant(s) or special equipment if applicable. The patient was placed in a dependent position appropriate for central line placement based on the vein to be cannulated. The patients right shoulder was prepped and draped in sterile fashion. 1% Lidocaine was used to anesthetize the surrounding skin area. A triple lumen 9F Cordis catheter was introduced into the right subclavian vein using Seldinger technique. The catheter was threaded smoothly over the guide wire and appropriate blood return was obtained. Each lumen of the catheter was evacuated of air and flushed with sterile saline. The catheter was then sutured in place to the skin and a sterile dressing applied. Perfusion to the extremity distal to the point of catheter insertion was checked and found to be adequate. The patient tolerated the procedure well and there were no complications. Arterial line Indication: Hemodynamic monitoring. A time-out was completed verifying correct patient, procedure, site, positioning, and implant(s) or special equipment if applicable. Allens test was performed to ensure adequate perfusion. The patients left wrist was prepped and draped in sterile fashion. 1% Lidocaine was used to anesthetize the area. An 18G Arrow arterial line was introduced into the left radial artery. The catheter was threaded over the guide wire and the needle was removed with appropriate pulsatile blood return. Blood loss was minimal. The catheter was then sutured in place to the skin and a sterile dressing applied. Perfusion to the extremity distal to the point of catheter insertion was checked and found to be adequate. The patient tolerated the procedure well and there were no complications.
--- NOTE | 2021-06-15 14:10 | XR ---
EXAMINATION TYPE: XR chest 1V portable DATE OF EXAM: 06/15/2021 COMPARISON: Today HISTORY: Central line placement TECHNIQUE: FINDINGS: Endotracheal tube is 3.3 cm from the evette. There is moderate pulmonary airspace edema. Th ere is left subclavian catheter with tip in the superior vena cava. There are chest leads. IMPRESSION: Pulmonary edema is slightly improved compared to exam of 20 minutes ago.
--- NOTE | 2021-06-15 14:17 | XR ---
EXAMINATION TYPE: XR chest 1V confirm line [facility] DATE OF EXAM: 06/15/2021 CLINICAL HISTORY: Central line placement. TECHNIQUE: Single AP portable upright view of the chest is obtained. COMPARISON: Chest x-ray from earlier today FINDINGS: New left subclavian central venous catheter terminates in SVC. Heart size stable and upper limits of normal. Persistent reticulonodular increased markings bilateral ly more prominent on current study versus prior. Consolidation with air bronchograms in the lung base s more prominent. No pleural effusion or pneumothorax seen. Osseous structures are intact. IMPRESSION: No pneumothorax after central line placement. Worsening bilateral confluent reticulonodul ar opacities could reflect covid-19 infection progression and/or developing ARDS.
[2021-06-15] MEDS ORDERED: CISATRACURIUM 2 MG/ML 5 ML VIAL IV ONE (15:41)
--- NOTE | 2021-06-15 16:14 | P.PN ---
Subjective Progress Note Date: 06/15/21 This is a 75-year-old male who was recently admitted with COVID-19 infection with acute hypoxic respiratory failure and is being closely monitored. Pulmonary following closely and patient is maintained on dexamethasone along with Lovenox and vitamin and zinc supplements. Patient currently maintained on 15 L high flow via nasal cannula with supplemental use of 15 L nonrebreather. Patient states his breathing is slightly improved and not requiring a nonrebreather as often. Instructed the patient to use incentive spirometer and increase activity as tolerated. Patient continues to be extremely weak and will have PT/OT evaluate the patient once more stable. 06/06/2021 Patient is seen in follow-up this morning states his shortness of breath has slightly worsened and his recovery time and working to breathe has become more difficult. Patient is continued on 15 L high flow along with nonrebreather intermittently and having to use it more frequently today he states. Incentive spirometer at the bedside and instructed the patient to continue to use at least 10 times every hour while awake and encouraged increased activity as tolerated. Patient states he walked to the bathroom with assistance and became extremely dyspneic. Patient is afebrile. D-dimer is 4.72 with a WBC of 16 and hemoglobin is stable at 15.4. Sodium is 138 with a potassium of 4.5 and current creatinine is 0.63. LDH is elevated at 2492 and CRP is 6.5. Chest x-ray today shows findings consistent with COVID-19 pneumonia with bilateral interstitial and airspace disease present. 06/07/2021 Patient is seen and evaluated in follow up this morning and is having increasing shortness of breath and on 15L high flow via NC and 15 L non-rebreather. Patient has been back in bed and attempting position changes frequently along with prone position. Patient continues on lovenox, baracitinib, vitamin and zinc supplements,and steroids. Pulmonary following closely. 06/10/2021 Patient is seen in follow up this morning and is now maintained on airvo at 60% and continues to be extremely dyspneic with minimal exertion. Patient also continues with 15L Non rebreather as needed. Patient is maintained on lovenox along with baricitinib and IV steroids with pulmonary following. Patient states he has no reserve and taking longer periods of time to recover with attempting to position change or use the urinal. 06/11/2021 Patient is seen in follow-up and evaluated this morning and is continued on Airvo and maintaining oxygen saturations in the low 90s. Pulmonary following closely. Patient is afebrile. Patient is continued on vitamin and zinc supplements along with Baricitinib and subcutaneous Lovenox along with IV s teroids and will continue. Patient's d-dimer today is elevated at 18.25 and will increase Lovenox to 50 subcu twice daily. White blood count today is 18.6 and hemoglobin is stable at 13.7, sodium is 139 with a potassium of 4.3 current creatinine is 0.7. Inflammatory markers are elevated with some trending down and CRP is 1.5, LDH is 1968 and alk phos is 168. Patient is afebrile. Patient continues to be extremely anxious and will continue Xanax as needed. Encouraged increase activity as tolerated and continued position changes with incentive spirometer use. 06/12/2021 Patient is seen in follow-up this morning with no acute issues noted overnight. Patient continues on Airvo with a flow rate of 55 and FiO2 of 80% maintaining oxygen saturations above 90%. Pulmonary following closely and we'll continue to wean as tolerated. Patient continues on Lovenox twice daily along with vitamin and zinc supplements and continued on IV steroids along with albuterol and Baricitinib. White blood count is 23.7 with a hemoglobin of 14.1, sodium is 139 with a potassium of 4.4 and current creatinine is 0.62. Will repeat chest x-ray along with inflammatory markers in the morning. 06/13/2021 Patient is seen and evaluated in follow-up as morning and continues to be on Airvo. Patient appears to be more raspy with some sputum and congested today with a hoarse voice. Infectious disease and pulmonary following closely. Sputum culture from 06/02 just today preliminary showing gram-negative bacilli along with Essence albicans and patient is being started on IV cefepime with repeat sputum culture ordered along with oral Diflucan. White blood count is 23.5 with hemoglobin of 13.8, sodium is 137 and potassium is 5.5 and current creatinine is 0.55. LFTs are mildly elevated. Repeat d-dimer along with CRP and LDH have been ordered. Will repeat a.m. labs. Chest x-ray today shows continued peripheral and lower lung interstitial infiltrates of Covid pneumonia without significant change. 06/14/2021 Patient is seen and evaluated in follow-up this morning continues to be dyspneic and requesting to go to the bed as he has been sitting up in the chair all day. Patient has been started on Diflucan along with IV cefepime and sputum culture from 06/02/2021 resulted showing Pseudomonas aeruginosa along with Essence albicans. Infectious disease is following closely. Patient is completing Baricitinib and will be transitioned to oral prednisone taper with pulmonary following closely. Patient has been started on eliquis. D-dimer today has trended down to 11.02, LDH is 2178, CRP is 3.2, liver functions trending down. White blood count slightly trending down at 20.2 and hemoglobin is stable at 13.7, sodium is 136 with a potassium of 4.3 and current creatinine is 0.57. Continues to have a mildly raspy voice with some throat dryness and will add Cepacol. 06/15/2021 Patient evaluated in bed and is resting on the BiPAP in the intensive care unit, he had desaturated this morning will be moved to the bathroom and initially was on a 15L HF, however is now requiring BiPAP. Patient was started on a Precedex drip. Repeat chest x-ray today which revealed persistent multifocal and confluent bilateral reticulonodular opacities is consistent with known coronary infection more prominent in the lower lungs. Patient finished a course of therapy with Baricitinib and transitioned to oral prednisone. Labs reviewed today include a white blood cell count 21.2, hemoglobin of 12.5. Blood gases show a pO2 of 32 and O2 saturation of 50.3. Chloride is 110, CO2 20, sodium 137, potassium 4. LDH is worse today at 2277, alk phos 158, CRP is trending upwards of 4.6. Patient has remained afebrile, heart rate is now 83, respirations 32, blood pressure 124/68. Oxygen saturation is maintaining in the mid to high 80s on 100% BiPAP. Patient is nothing by mouth and oral medications are unable to be given. Patient is on IV cefepime for a sputum culture positive for Pseudomonas. He is IV Diflucan for oral candidiasis that was improving as of yesterday. Review of systems: Unable to complete a full review of symptoms due to lethargic status this morning s/p transfer to ICU after decompensating on 15L NC. Physical exam: Gen: This is a 75-year-old male lethargic the time examination, well-developed, well-nourished, on 100% BiPAP HEENT: Head is atraumatic, normocephalic. Pupils equal, round. Sclerae is anicteric. Oral mucosa has white patches NECK: Supple. No JVD. No lymphadenopathy. No thyromegaly. LUNGS: Diminished breath sounds bilaterally with scattered coarse rhonchi noted. No intercostal retractions. HEART: Regular rate and rhythm. No murmur. ABDOMEN: Soft. Bowel sounds are present. No masses. No tenderness. EXTREMITIES: No pedal edema. No calf tenderness. NEUROLOGICAL: Patient is quite lethargic the time of my examination. He is diffusely weak. Assessment: Acute COVID-19 infection with acute component of interstitial pneumonia, bilateral with acute hypoxic respiratory failure and possible sepsis secondary to COVID-19, patient is decompensating and was transitioned to the ICU on 100% BiPAP settings of 29/08. There is concern that patient may require intubation. The patient was given Precedex and morphine for agitation and anxiety. Lactic acidosis secondary to above Initial sputum culture showing Essence albicans and pseudomonas aeruginosa and has been started on IV cefepime and repeat sputum culture pending, infectious disease following closely Oral thrush with white patches noted and being started on Diflucan, sputum cultures from 06/02/2021 Essence albicans Extensive interstitial bilateral COVID-19 pneumonia Elevated white blood count possibly secondary to above Possible subsegmental pulmonary embolism ruled out History of atrial fibrillation on eliquis Anxiety Remote history of nicotine dependence GI prophylaxis: Protonix DVT prophylaxis: On eliquis Full code Plan: Recommend to continue with current medications and continue with inhalers, starting oral steroids, and vitamin supplements. Patient has completed baricit inib. Patient has been transitioned to eliquis 5 mg twice a day. Patient decompensated this morning while going to the bathroom he was ultimately placed on a 15 L high flow nasal cannula however did require transfer to the intensive care unit and is on 100% BiPAP. Patient was also started on a Precedex drip as well as IV morphine. Pulmonary and infectious disease following. Patient's IV cefepime and IV Diflucan for a sputum culture positive for Pseudomonas oral daily basis. He was improving as of yesterday these medications will be continued. Prognosis is extremely guarded in this patient as he may require intubation. Repeat labs in the morning. Repeat chest x-ray in the morning. Objective - Vital Signs Vital signs: Vital Signs Temp 98.7 F 06/15/21 02:50 Pulse 66 06/15/21 02:50 Resp 19 06/15/21 02:50 BP 136/75 06/15/21 02:50 Pulse Ox 90 L 06/15/21 02:50 Intake & Output 06/14/21 06/15/21 06/15/21 18:59 06:59 18:59 Intake Total 5.717 Output Total 1400 150 Balance -1400 -144.283 Intake: Intake, IV Titration 5.717 Amount Dexmedetomidine/0.9% NaCl 5.717 (Pmx) 400 mcg In Empty Bag 1 bag @ 0.2 MCG/KG/HR 4.9 mls/hr IV .[id number] [facility] Rx#:[id number] Output: Urine 1400 150 Other: Voiding Method Urinal - Labs CBC & Chem 7: 06/15/21 09:20 06/15/21 09:20 Labs: Abnormal Lab Results - Last 24 Hours (Table) 06/15/21 06/15/21 06/15/21 Range/Units 06:01 06:02 09:20 WBC 21.2 H (3.8-10.6) k/uL RBC 4.17 L (4.30-5.90) m/uL Hgb 12.5 L (13.0-17.5) gm/dL Hct 37.7 L (39.0-53.0) % Neutrophils # (Manual) 20.35 H (1.3-7.7) k/uL Lymphocytes # (Manual) 0.42 L (1.0-4.8) k/uL ABG pO2 32 L* (83-108) mmHg ABG Total CO2 26 H (19-24) mmol/L ABG O2 Saturation 58.3 L (94-97) % Chloride (98-107) mmol/L Carbon Dioxide (22-30) mmol/L BUN (9-20) mg/dL POC Glucose (mg/dL) 102 H (75-99) mg/dL Calcium (8.4-10.2) mg/dL Total Bilirubin (0.2-1.3) mg/dL ALT (4-49) U/L Alkaline Phosphatase (38-126) U/L Lactate Dehydrogenase (313-618) U/L C-Reactive Protein (<1.0) mg/dL Total Protein (6.3-8.2) g/dL Albumin (3.5-5.0) g/dL 06/15/21 Range/Units 09:20 WBC (3.8-10.6) k/uL RBC (4.30-5.90) m/uL Hgb (13.0-17.5) gm/dL Hct (39.0-53.0) % Neutrophils # (Manual) (1.3-7.7) k/uL Lymphocytes # (Manual) (1.0-4.8) k/uL ABG pO2 (83-108) mmHg ABG Total CO2 (19-24) mmol/L ABG O2 Saturation (94-97) % Chloride 110 H (98-107) mmol/L Carbon Dioxide 20 L (22-30) mmol/L BUN 26 H (9-20) mg/dL POC Glucose (mg/dL) (75-99) mg/dL Calcium 7.7 L (8.4-10.2) mg/dL Total Bilirubin 2.1 H (0.2-1.3) mg/dL ALT 79 H (4-49) U/L Alkaline Phosphatase 158 H (38-126) U/L Lactate Dehydrogenase 2277 H (313-618) U/L C-Reactive Protein 4.6 H (<1.0) mg/dL Total Protein 4.9 L (6.3-8.2) g/dL Albumin 2.3 L (3.5-5.0) g/dL Microbiology - Last 24 Hours (Table) 06/14/21 15:21 Gram Stain - Preliminary Sputum Sputum Culture - Preliminary 06/02/21 11:31 Gram Stain - Final Sputum Sputum Culture - Final Pseudomonas aeruginosa Essence albicans
[2021-06-15] MEDS: CISATRACURIUM 200 MG in SODIUM CHLORIDE 0.9% 180 ML IV SCH (16:30)
[2021-06-15] MEDS: NOREPINEPHRINE 8 MG in SODIUM CHLORIDE 0.9% 250 ML IV SCH (16:57)
[2021-06-15] MEDS: ARTIFICIAL TEARS-HYPROMELLOSE DROPS 15 ML BTL BOTH EYES SCH ×3 (16:57→23:24)
[2021-06-15 18:08] LABS: ABG HCO3 25 mmol/L (21-25); ABG PCO2 72 mmHg (35-45); ABG PH 7.15 (7.35-7.45); ABG PO2 67 mmHg (83-108)
[2021-06-15 18:09] LABS: ABG Base Excess -3.6 mmol/L; ABG Oxygen Saturation 86.9 % (94-97); ABG TCO2 27 mmol/L (19-24)
--- NOTE | 2021-06-15 18:15 | PN ---
PROGRESS NOTE DATE OF SERVICE: 06/15/2021 REASON FOR FOLLOWUP: Pneumonia. INTERVAL HISTORY: The patient did have worsening of his respiratory status. Patient ended up getting intubated. The patient is currently hemodynamically stable. No significant purulent secretions thru the ET at the time of intubation per the nursing staff. Currently on . PHYSICAL EXAMINATION: Blood pressure 134/75, pulse of 81, temperature is 98.1. He is 94% on 100% FIO2. General description is an elderly male intubated on the vent. Respiratory system: Unlabored breathing. Diminished breath sounds. No wheeze. Heart S1, S2. Regular rate and rhythm. Abdomen soft, no tenderness. LABS: Hemoglobin 12.5, white count 21.2, BUN of 26, creatinine 0.77. DIAGNOSTIC IMPRESSION AND PLAN: Patient with acute respiratory failure and COVID-19 pneumonia. Sputum did show some Pseudomonas for which the patient is covered with cefepime. In view of overall clinical condition, we will continue current antibiotics along with supportive treatment and monitor clinical course closely. Prognosis remains to be guarded. MMODL / IJN: [id number] /
[2021-06-15 20:13] LABS: ABG Base Excess -5.7 mmol/L; ABG HCO3 25 mmol/L (21-25); ABG Oxygen Saturation 96.1 % (94-97); ABG PO2 108 mmHg (83-108); ABG TCO2 27 mmol/L (19-24)
[2021-06-15 20:14] LABS: ABG PH 7.06 (7.35-7.45)
[2021-06-15 20:15] LABS: ABG PCO2 87 mmHg (35-45); Allen Test Performed? no
[2021-06-15] MEDS: CHLORHEXIDINE GLUCONATE 15 ML CUP MUCOUS MEM SCH (20:17)
[2021-06-15] MEDS ORDERED: SODIUM BICARB 8.4% 50 ML SYR (1 MEQ/ML) IV STA ×2 (20:19→20:20)
--- NOTE | 2021-06-16 00:44 | XR ---
EXAMINATION TYPE: XR chest 1V portable DATE OF EXAM: 06/16/2021 COMPARISON: NONE HISTORY: Tube placement TECHNIQUE: Single view FINDINGS: There is nasogastric tube with the tip over the gastric fundus. There is left subclavian ca theter with tip in the superior vena cava. Endotracheal tube is approximately 2.5 cm from the evette. There is pulmonary interstitial edema. There is some tubing over the midline chest. IMPRESSION: There is pulmonary edema not changed compared to yesterday. Tubing in good position. No p neumothorax.
[2021-06-16] MEDS: NOREPINEPHRINE 8 MG in SODIUM CHLORIDE 0.9% 250 ML IV SCH ×2 (02:30→19:00)
[2021-06-16] MEDS: DEXMEDETOMIDINE/0.9% NACL(PMX) 400 MCG in EMPTY BAG 1 BAG IV SCH (02:53)
[2021-06-16 04:57] LABS: Glucose,Whole Blood 119 mg/dL (75-99)
[2021-06-16 05:39] LABS: ABG Base Excess -4.2 mmol/L; ABG HCO3 25 mmol/L (21-25); ABG PO2 107 mmHg (83-108); ABG TCO2 27 mmol/L (19-24); Allen Test Performed? Yes
[2021-06-16 05:40] LABS: ABG PCO2 71 mmHg (35-45); ABG PH 7.15 (7.35-7.45)
[2021-06-16 06:27] LABS: Basophils % (A) 0 %; Eosinophils # (A) 0.1 k/uL (0-0.7); Eosinophils % (A) 0 %; HCT 42.8 % (39.0-53.0); HGB 13.7 gm/dL (13.0-17.5); Hypochromasia Slight; Lymphocytes # (A) 0.4 k/uL (1.0-4.8); Lymphocytes % (A) 1 %; MCH 30.3 pg (25.0-35.0); MCHC 32.1 g/dL (31.0-37.0); MCV 94.6 fL (80.0-100.0); Mean Platelet Volume 8.3; Monocytes # (A) 0.4 k/uL (0-1.0); Monocytes % (A) 1 %; Neutrophils # (A) 43.2 k/uL (1.3-7.7); Neutrophils % (A) 98 %; Platelet Count 215 k/uL (150-450); RBC 4.52 m/uL (4.30-5.90); RDW 13.8 % (11.5-15.5); WBC 44.2 k/uL (3.8-10.6)
[2021-06-16 06:45] LABS: Albumin 2.4 g/dL (3.5-5.0); Calcium 7.4 mg/dL (8.4-10.2); Potassium 5.1 mmol/L (3.5-5.1); Total Bilirubin 1.5 mg/dL (0.2-1.3); Total Protein 5.2 g/dL (6.3-8.2)
[2021-06-16] MEDS: ARTIFICIAL TEARS-HYPROMELLOSE DROPS 15 ML BTL BOTH EYES SCH ×5 (07:06→20:07)
[2021-06-16] MEDS: ALBUTEROL HFA INHALER INHALATION SCH ×4 (08:15→20:19)
[2021-06-16] MEDS: APIXABAN 5 MG TAB PO SCH ×2 (09:20→20:05)
[2021-06-16] MEDS: BENZONATATE 100 MG CAP PO SCH ×3 (09:20→21:46)
[2021-06-16] MEDS: ASCORBIC ACID 500 MG TAB PO SCH (09:20)
[2021-06-16] MEDS: ASPIRIN 81 MG PO SCH (09:20)
[2021-06-16] MEDS: FLUCONAZOLE 100 MG TAB PO SCH (09:21)
[2021-06-16] MEDS: ZINC SULFATE 220 MG CAP PO SCH (09:21)
[2021-06-16] MEDS: CHOLECALCIFEROL 25 MCG (1000 IU) TABLET PO SCH (09:21)
[2021-06-16] MEDS: METOPROLOL TARTRATE 25 MG TAB PO SCH (09:21)
[2021-06-16] MEDS: SENNOSIDES 8.6 MG TAB PO SCH ×2 (09:21→20:05)
[2021-06-16] MEDS: predniSONE 20 MG TAB PO SCH (09:21)
[2021-06-16] MEDS: CYANOCOBALAMIN 500 MCG TAB PO SCH (09:21)
[2021-06-16] MEDS: CHLORHEXIDINE GLUCONATE 15 ML CUP MUCOUS MEM SCH ×2 (09:30→20:05)
[2021-06-16] MEDS: PANTOPRAZOLE 40 MG/10 ML VIAL IVP SCH ×2 (09:30→20:05)
[2021-06-16] MEDS: CEFEPIME 2 GM in SODIUM CHLORIDE 0.9% 100 ML IVPB SCH ×2 (09:30→16:56)
[2021-06-16 10:25] LABS: Anisocytosis (M) Present; Poikilocytosis (M) Present
[2021-06-16] MEDS ORDERED: dexAMETHasone 4 MG TAB PO STA (11:02)
[2021-06-16] MEDS ORDERED: SODIUM CHLORIDE 0.9% 1,000 ML IV ONE (11:02)
--- NOTE | 2021-06-16 11:03 | P.PN ---
Subjective Progress Note Date: 06/16/21 06/16/2021, the patient is already intubated and on a mechanical ventilator. He was brought up to the intensive care unit yesterday. He was significantly short of breath and he was placed on BiPAP which was kept on for several hours and he was unable to stabilize and at that point we decided to proceed with intubation mechanical ventilation. 2 triple-lumen catheter nausea none was also establis hed. This morning, the patient is on propofol which is running at 50 mL an hour and the patient is also requiring dialysis and he is on the backs running at 1 mcg/kg per minute. He is quite suggestive mechanical ventilator. He is currently on assist control mode at the rate of 36 and a tidal volume of 400 and FiO2 of 75% with a PEEP of 16. Blood gases showed a pH of 7.15 with a pCO2 of 71 and pO2 of 107. The patient's chest x-ray from today is showing diffuse bilateral pulmonary infiltrates consistent with pneumonia related to COVID- 19/ARDS. Orotracheal tube is in a good location. Orogastric tube was also and good location. The white cell count is up to 44.2. Note that earlier sputum samples that were collected on this patient from 06/02/2021 was consistent with pseudomonas aeruginosa and Essence. For now, the patient is on IV cefepime at a dose of 2 g every 12 hours. Repeat cultures were sent. Note that the inflammatory markers on this patient indicate a d-dimer of more than 34, LDH level was 2277 from 06/15/2021, CRP level was 4.6. The throat calcitonin level was 0.03. I'm not absolutely sure if the patient is infected. That pseudomonal culture is rather old. Nevertheless he has developed some leukocytosis and based on a previous pseudomonal growth, cover the patient with IV cefepime 2 g every 12 hours. The patient is also on prednisone at a dose of 40 mg by mouth daily. He was also given Baricitinib which she completed. He developed an extensive oropharyngeal candidiasis and the patient is currently on Diflucan. Afebrile. Hemodynamically, the patient is requiring pressors and the patient is currently on 0.15 mcg/kg per minute of norepinephrine infusion. IV fluids as in the form of normal saline at the rate of 50 mL an hour. The patient received a total of 2 L of normal saline bolus yesterday. The patient is currently nothing by mouth and enteral feeding has not been initiated. Objective - Vital Signs Vital signs: Vital Signs Temp 97.6 F 06/16/21 04:00 Pulse 116 H 06/16/21 09:30 Resp 36 H 06/16/21 09:30 BP 134/75 06/16/21 00:30 Pulse Ox 97 06/16/21 09:30 Intake & Output 06/15/21 06/16/21 06/16/21 18:59 06:59 18:59 Intake Total 2410.588 1184.572 150 Output Total 715 695 90 Balance 1695.588 489.572 60 Weight 106.6 kg Intake: IV 2200 600 50 Sodium Chloride 0.9% 1, 2200 600 50 000 ml @ 999 mls/hr IV . Q1H1M [facility] Rx#:[id number] Intake, IV Titration 210.588 584.572 100 Amount Dexmedetomidine/0.9% NaCl 100.000 (Pmx) 400 mcg In Empty Bag 1 bag @ 0.2 MCG/KG/HR 4.9 mls/hr IV .[id number] [facility] Rx#:[id number] Norepinephrine 8 mg In 10.588 247.412 Sodium Chloride 0.9% 250 ml @ 0.05 MCG/KG/MIN 9. 482 mls/hr IV .Q24H [facility] Rx#:[id number] propofoL 1,000 mg In 100.000 337.16 100 Empty Bag 1 bag @ Titrate IV .Q0M [facility] Rx#: [id number] Output: Urine 715 695 90 Other: Voiding Method Indwelling Catheter Indwelling Catheter Indwelling Catheter ABP, PAP, CO, CI - Last Documented Arterial Blood Pressure 110/53 - Exam The patient is currently intubated on a mechanical ventilator. Orogastric and orotracheal tube are both in place. The patient sedated. The patient is paralyzed. HEENT examination is grossly unremarkable. Neck supple. Full range of motion. No adenopathy thyromegaly or neck vein distention. Cardiovascular examination reveals regular rhythm rate. S1-S2 normal. No S3 or S4. No discernible murmur noted. . Heart sounds are distant. Lungs reveal coarse bilateral rhonchi. No wheezes or crackles. Breath sounds equal bilaterally. Abdomen soft bowel sounds are heard. No masses or tenderness. Extremities are intact. No cyanosis clubbing or edema. Skin is without rash or lesion Neurologic examination suboptimal as the patient is currently sedated and paralyzed. - Labs CBC & Chem 7: 06/16/21 04:55 06/16/21 04:55 Labs: Abnormal Lab Results - Last 24 Hours (Table) 06/15/21 06/15/21 06/15/21 Range/Units 09:20 15:22 20:08 WBC 21.2 H (3.8-10.6) k/uL RBC 4.17 L (4.30-5.90) m/uL Hgb 12.5 L (13.0-17.5) gm/dL Hct 37.7 L (39.0-53.0) % Neutrophils # (1.3-7.7) k/uL Neutrophils # (Manual) 20.35 H (1.3-7.7) k/uL Lymphocytes # (1.0-4.8) k/uL Lymphocytes # (Manual) 0.42 L (1.0-4.8) k/uL D-Dimer (<0.60) mg/L FEU ABG pH 7.15 L* 7.06 L* (7.35-7.45) ABG pCO2 72 H* 87 H* (35-45) mmHg ABG pO2 67 L (83-108) mmHg ABG Total CO2 27 H 27 H (19-24) mmol/L ABG O2 Saturation 86.9 L (94-97) % Chloride (98-107) mmol/L BUN (9-20) mg/dL Glucose (74-99) mg/dL POC Glucose (mg/dL) (75-99) mg/dL Calcium (8.4-10.2) mg/dL Total Bilirubin (0.2-1.3) mg/dL ALT (4-49) U/L Alkaline Phosphatase (38-126) U/L Total Protein (6.3-8.2) g/dL Albumin (3.5-5.0) g/dL 06/16/21 06/16/21 06/16/21 Range/Units 04:55 04:55 04:55 WBC 44.2 H (3.8-10.6) k/uL RBC (4.30-5.90) m/uL Hgb (13.0-17.5) gm/dL Hct (39.0-53.0) % Neutrophils # 43.2 H (1.3-7.7) k/uL Neutrophils # (Manual) (1.3-7.7) k/uL Lymphocytes # 0.4 L (1.0-4.8) k/uL Lymphocytes # (Manual) (1.0-4.8) k/uL D-Dimer >34.10 H (<0.60) mg/L FEU ABG pH (7.35-7.45) ABG pCO2 (35-45) mmHg ABG pO2 (83-108) mmHg ABG Total CO2 (19-24) mmol/L ABG O2 Saturation (94-97) % Chloride 109 H (98-107) mmol/L BUN 27 H (9-20) mg/dL Glucose 117 H (74-99) mg/dL POC Glucose (mg/dL) (75-99) mg/dL Calcium 7.4 L (8.4-10.2) mg/dL Total Bilirubin 1.5 H (0.2-1.3) mg/dL ALT 80 H (4-49) U/L Alkaline Phosphatase 167 H (38-126) U/L Total Protein 5.2 L (6.3-8.2) g/dL Albumin 2.4 L (3.5-5.0) g/dL 06/16/21 06/16/21 Range/Units 04:55 05:34 WBC (3.8-10.6) k/uL RBC (4.30-5.90) m/uL Hgb (13.0-17.5) gm/dL Hct (39.0-53.0) % Neutrophils # (1.3-7.7) k/uL Neutrophils # (Manual) (1.3-7.7) k/uL Lymphocytes # (1.0-4.8) k/uL Lymphocytes # (Manual) (1.0-4.8) k/uL D-Dimer (<0.60) mg/L FEU ABG pH 7.15 L* (7.35-7.45) ABG pCO2 71 H* (35-45) mmHg ABG pO2 (83-108) mmHg ABG Total CO2 27 H (19-24) mmol/L ABG O2 Saturation 98.0 H (94-97) % Chloride (98-107) mmol/L BUN (9-20) mg/dL Glucose (74-99) mg/dL POC Glucose (mg/dL) 119 H (75-99) mg/dL Calcium (8.4-10.2) mg/dL Total Bilirubin (0.2-1.3) mg/dL ALT (4-49) U/L Alkaline Phosphatase (38-126) U/L Total Protein (6.3-8.2) g/dL Albumin (3.5-5.0) g/dL Microbiology - Last 24 Hours (Table) 06/14/21 15:21 Gram Stain - Final Sputum Sputum Culture - Final Assessment and Plan Plan: 1 Acute hypoxemic respiratory failure secondary to coronavirus associated pneumonia. The patient had developed diffuse bilateral pulmonary infiltrates secondary to COVID-19 related pneumonia/ARDS. He was on high flow oxygen for a long period of time. He subsequently compensated this morning and was transferred to the i ntensive care unit where he was placed on a BiPAP subsequently the patient failed BiPAP therapy and he was intubated on 2020, currently sedated and paralyzed on a mechanical ventilator. Chest x-ray was noted. Blood gases was noted. The physical ventilator changes were done. We are doing permissive hypercapnia with low tidal volume ventilation. Peak airway pressure on a mechanical ventilator is 40 with a static pressure of 39. His PEEP is currently at 16. 2 acute COVID-19 related pneumonia with diffuse but the pulmonary infiltrates and diffuse groundglass pulmonary changes 3 elevated inflammatory markers secondary to above, 4 shortness of breath secondary to above 5 History of chronic atrial fibrillation. The patient's current rhythm is sinus and the patient on Eliquis for anticoagulation. 6 Anxiety 7 Pseudomonas and yeast in the sputum, likely secondary to immunosuppression provided by Solu-Medrol and Baricitinib. The patient is currently off Baricitinib. Solu Medrol was discontinued and the patient is currently on prednisone 8 extensive oropharyngeal candidiasis, currently on Diflucan 9 leukocytosis 10 hypotension evolved over the past 12-24 hours. Received a total of 2 L of fluid bolus and the patient is currently on norepinephrine infusion. His underlying infection/sepsis. Plan Repeat pro-calcitonin level Monitor the white count Titrate norepinephrine infusion to maintain a mean artery pressure above 60 IV fluids will be increased up to 150 mL an hour and the patient will receive another liter bolus Continue cefepime Continue Diflucan Baricitinib has been discontinued after receiving 11 out of 14 doses due to concerns of infection Switch this patient to Decadron 4 mg by mouth daily The patient has received extensive amount of steroids as the patient has been the hospital for almost 2 weeks. Drop the FiO2 down to 60%. Drop the PEEP down to 14. Awaiting follow-up blood work including LDH CRP and d-dimer His current cardiac rhythm is sinus. Nevertheless the patient is on Eliquis Re: atrial fibrillation. We'll continue Eliquis for now We will initiate enteral feeding for nutritional support. Dietary consultation be obtained Condition is critical with high likelihood of further decompensation requiring intubation mechanical ventilation. For that reason, the patient will be kept in the intensive care unit.. Family will be informed. Condition is critical. Evaluation was done more than 30 minutes. Time with Patient: Greater than 30
[2021-06-16 11:28] LABS: Glucose,Whole Blood 107 mg/dL (75-99)
[2021-06-16] MEDS: SODIUM CHLORIDE 0.9% 1,000 ML IV SCH ×2 (11:42→16:57)
[2021-06-16 11:56] LABS: Glucose,Whole Blood 120 mg/dL (75-99)
[2021-06-16] MEDS: MORPHINE SULFATE 2 MG/ML SYRINGE IVP PRN (13:54)
[2021-06-16] MEDS: CISATRACURIUM 200 MG in SODIUM CHLORIDE 0.9% 180 ML IV SCH (13:55)
[2021-06-16] MEDS ORDERED: AMIODARONE 360 MG in DEXTROSE 5% IN WATER 200 ML IV ONE ×2 (14:25)
[2021-06-16] MEDS ORDERED: DEXTROSE 5% IN WATER 100 ML with AMIODARONE 150 MG IV ONE (14:25)
--- NOTE | 2021-06-16 14:28 | P.PN ---
Subjective Progress Note Date: 06/16/21 This is a 75-year-old male who was recently admitted with COVID-19 infection with acute hypoxic respiratory failure and is being closely monitored. Pulmonary following closely and patient is maintained on dexamethasone along with Lovenox and vitamin and zinc supplements. Patient currently maintained on 15 L high flow via nasal cannula with supplemental use of 15 L nonrebreather. Patient states his breathing is slightly improved and not requiring a nonrebreather as often. Instructed the patient to use incentive spirometer and increase activity as tolerated. Patient continues to be extremely weak and will have PT/OT evaluate the patient once more stable. 06/06/2021 Patient is seen in follow-up this morning states his shortness of breath has slightly worsened and his recovery time and working to breathe has become more difficult. Patient is continued on 15 L high flow along with nonrebreather intermittently and having to use it more frequently today he states. Incentive spirometer at the bedside and instructed the patient to continue to use at least 10 times every hour while awake and encouraged increased activity as tolerated. Patient states he walked to the bathroom with assistance and became extremely dyspneic. Patient is afebrile. D-dimer is 4.72 with a WBC of 16 and hemoglobin is stable at 15.4. Sodium is 138 with a potassium of 4.5 and current creatinine is 0.63. LDH is elevated at 2492 and CRP is 6.5. Chest x-ray today shows findings consistent with COVID-19 pneumonia with bilateral interstitial and airspace disease present. 06/07/2021 Patient is seen and evaluated in follow up this morning and is having increasing shortness of breath and on 15L high flow via NC and 15 L non-rebreather. Patient has been back in bed and attempting position changes frequently along with prone position. Patient continues on lovenox, baracitinib, vitamin and zinc supplements,and steroids. Pulmonary following closely. 06/10/2021 Patient is seen in follow up this morning and is now maintained on airvo at 60% and continues to be extremely dyspneic with minimal exertion. Patient also continues with 15L Non rebreather as needed. Patient is maintained on lovenox along with baricitinib and IV steroids with pulmonary following. Patient states he has no reserve and taking longer periods of time to recover with attempting to position change or use the urinal. 06/11/2021 Patient is seen in follow-up and evaluated this morning and is continued on Airvo and maintaining oxygen saturations in the low 90s. Pulmonary following closely. Patient is afebrile. Patient is continued on vitamin and zinc supplements along with Baricitinib and subcutaneous Lovenox along with IV s teroids and will continue. Patient's d-dimer today is elevated at 18.25 and will increase Lovenox to 50 subcu twice daily. White blood count today is 18.6 and hemoglobin is stable at 13.7, sodium is 139 with a potassium of 4.3 current creatinine is 0.7. Inflammatory markers are elevated with some trending down and CRP is 1.5, LDH is 1968 and alk phos is 168. Patient is afebrile. Patient continues to be extremely anxious and will continue Xanax as needed. Encouraged increase activity as tolerated and continued position changes with incentive spirometer use. 06/12/2021 Patient is seen in follow-up this morning with no acute issues noted overnight. Patient continues on Airvo with a flow rate of 55 and FiO2 of 80% maintaining oxygen saturations above 90%. Pulmonary following closely and we'll continue to wean as tolerated. Patient continues on Lovenox twice daily along with vitamin and zinc supplements and continued on IV steroids along with albuterol and Baricitinib. White blood count is 23.7 with a hemoglobin of 14.1, sodium is 139 with a potassium of 4.4 and current creatinine is 0.62. Will repeat chest x-ray along with inflammatory markers in the morning. 06/13/2021 Patient is seen and evaluated in follow-up as morning and continues to be on Airvo. Patient appears to be more raspy with some sputum and congested today with a hoarse voice. Infectious disease and pulmonary following closely. Sputum culture from 06/02 just today preliminary showing gram-negative bacilli along with Essence albicans and patient is being started on IV cefepime with repeat sputum culture ordered along with oral Diflucan. White blood count is 23.5 with hemoglobin of 13.8, sodium is 137 and potassium is 5.5 and current creatinine is 0.55. LFTs are mildly elevated. Repeat d-dimer along with CRP and LDH have been ordered. Will repeat a.m. labs. Chest x-ray today shows continued peripheral and lower lung interstitial infiltrates of Covid pneumonia without significant change. 06/14/2021 Patient is seen and evaluated in follow-up this morning continues to be dyspneic and requesting to go to the bed as he has been sitting up in the chair all day. Patient has been started on Diflucan along with IV cefepime and sputum culture from 06/02/2021 resulted showing Pseudomonas aeruginosa along with Essence albicans. Infectious disease is following closely. Patient is completing Baricitinib and will be transitioned to oral prednisone taper with pulmonary following closely. Patient has been started on eliquis. D-dimer today has trended down to 11.02, LDH is 2178, CRP is 3.2, liver functions trending down. White blood count slightly trending down at 20.2 and hemoglobin is stable at 13.7, sodium is 136 with a potassium of 4.3 and current creatinine is 0.57. Continues to have a mildly raspy voice with some throat dryness and will add Cepacol. 06/15/2021 Patient evaluated in bed and is resting on the BiPAP in the intensive care unit, he had desaturated this morning will be moved to the bathroom and initially was on a 15L HF, however is now requiring BiPAP. Patient was started on a Precedex drip. Repeat chest x-ray today which revealed persistent multifocal and confluent bilateral reticulonodular opacities is consistent with known coronary infection more prominent in the lower lungs. Patient finished a course of therapy with Baricitinib and transitioned to oral prednisone. Labs reviewed today include a white blood cell count 21.2, hemoglobin of 12.5. Blood gases show a pO2 of 32 and O2 saturation of 50.3. Chloride is 110, CO2 20, sodium 137, potassium 4. LDH is worse today at 2277, alk phos 158, CRP is trending upwards of 4.6. Patient has remained afebrile, heart rate is now 83, respirations 32, blood pressure 124/68. Oxygen saturation is maintaining in the mid to high 80s on 100% BiPAP. Patient is nothing by mouth and oral medications are unable to be given. Patient is on IV cefepime for a sputum culture positive for Pseudomonas. He is IV Diflucan for oral candidiasis that was improving as of yesterday. 06/16/2021 Patient is evaluated in the intensive care unit, he is status post intubation and has NG tube in place. Labs reviewed today included white blood cell, 44.2, d-dimer greater than 34. ABGs from the A-line included a pH of 7.15, pCO2 of 71, total CO2 is 27 and oxygen saturation of 98. Bicarb is 25 and his pO2 is 107. Additional labs include a serum potassium 5.1, chloride of 109, BUN of 27, creatinine 1.06. Vital signs include a heart rate of 123 tachycardia, respiratory rate of 36, blood pressure 100/50, he is 98% oxygen saturation. Patient is on vasopressors for his blood pressure. Repeat blood cultures are negative. Patient is receiving propofol for sedation. His chest x-ray was reviewed which is showing bilateral pulmonary infiltrates demonstrating COVID- 19 pneumonia with ARDS. Patient is still getting IV cefepime for a sputum culture Pseudomonas although his pro calcitonin level is 0.03 which is not usually indicative of a bacterial infection. Additional inflammatory markers remain elevated. Patient did receive 2 L saline bolus. Repeat labs in the morning, prognosis is guarded for this patient. Review of systems: Unable to complete a full review of symptoms as patient is sedated and on a ventilator. Physical exam: Gen: This is a 75-year-old male lethargic the time examination, well-developed, well-nourished, on 100% BiPAP HEENT: Head is atraumatic, normocephalic. Pupils equal, round. Sclerae is anicteric. Oral mucosa has white patches NECK: Supple. No JVD. No lymphadenopathy. No thyromegaly. LUNGS: Diminished breath sounds bilaterally with scattered coarse rhonchi noted. No intercostal retractions. HEART: Regular rate and rhythm. No murmur. ABDOMEN: Soft. Bowel sounds are present. No masses. No tenderness. EXTREMITIES: No pedal edema. No calf tenderness. NEUROLOGICAL: Patient is quite lethargic the time of my examination. He is di ffusely weak. Assessment: Acute COVID-19 infection with acute component of interstitial pneumonia, bilateral with acute hypoxic respiratory failure and possible sepsis secondary to COVID-19, patient is decompensating and was transitioned to the ICU on 100% BiPAP. Possibly patient failed therapy with BiPAP and was intubated and is maintained on propofol and levophed. Lactic acidosis secondary to above Initial sputum culture showing Essence albicans and pseudomonas aeruginosa and has been started on IV cefepime and repeat sputum culture pending, infectious disease following closely Oral thrush with white patches noted and being started on Diflucan, sputum cultures from 06/02/2021 Essence albicans Extensive interstitial bilateral COVID-19 pneumonia with ARDS Elevated white blood count possibly secondary to above, Continuing to trend upwards Possible subsegmental pulmonary embolism ruled out, D-dimer is greater than 34 History of atrial fibrillation on eliquis, will most likely require transition to an IV anticoagulation. Patient remains on the vent. Anxiety Remote history of nicotine dependence GI prophylaxis: Protonix DVT prophylaxis: On eliquis Full code Plan: Recommend to continue with current medications and continue with inhalers, starting oral steroids, and vitamin supplements. Patient has completed baricitinib. Patient has been transitioned to eliquis 5 mg twice a day. Patient decompensated this morning while going to the bathroom he was ultimately placed on a 15 L high flow nasal cannula however did require transfer to the intensive care unit and is on 100% BiPAP. Patient was also started on a Precedex drip as well as IV morphine. Patient's IV cefepime and IV Diflucan for a sputum culture positive for Pseudomonas oral daily basis. Patient continued to decline while on the BiPAP and was ultimately intubated. We will look at adjusting medications to car changer to an IV form. Patient is on the ventilator. Prognosis is extremely guarded for this patient as his inflammatory markers continue to climb despite therapies for a patient with COVID-19 pneumonia. He has on propofol for sedation as well as Levophed to optimize blood pressure. He has also developed some tachycardia, his fluids are running at 150 mL per hour and these will continue. Patient is being followed closely by pulmonary critical care services as well as infectious disease. Objective - Vital Signs Vital signs: Vital Signs Temp 97.6 F 06/16/21 04:00 Pulse 123 H 06/16/21 11:00 Resp 36 H 06/16/21 11:00 BP 134/75 06/16/21 00:30 Pulse Ox 98 06/16/21 11:00 Intake & Output 06/15/21 06/16/21 06/16/21 18:59 06:59 18:59 Intake Total 2410.588 1184.572 533.93 Output Total 715 695 90 Balance 1695.588 489.572 443.93 Weight 106.6 kg 106.6 kg Intake: IV 2200 600 50 Sodium Chloride 0.9% 1, 2200 600 50 000 ml @ 999 mls/hr IV . Q1H1M [facility] Rx#:[id number] Intake, IV Titration 210.588 584.572 483.93 Amount Cisatracurium 200 mg In 125.93 Sodium Chloride 0.9% 180 ml @ 1 MCG/KG/MIN 5.88 mls/hr IV .Q24H [facility] Rx#: [id number] Dexmedetomidine/0.9% NaCl 100.000 (Pmx) 400 mcg In Empty Bag 1 bag @ 0.2 MCG/KG/HR 4.9 mls/hr IV .[id number] [facility] Rx#:[id number] Norepinephrine 8 mg In 10.588 247.412 258 Sodium Chloride 0.9% 250 ml @ 0.05 MCG/KG/MIN 9. 482 mls/hr IV .Q24H [facility] Rx#:[id number] propofoL 1,000 mg In 100.000 337.16 100 Empty Bag 1 bag @ Titrate IV .Q0M [facility] Rx#: [id number] Output: Urine 715 695 90 Other: Voiding Method Indwelling Catheter Indwelling Catheter Indwelling Catheter ABP, PAP, CO, CI - Last Documented Arterial Blood Pressure 100/50 - Labs CBC & Chem 7: 06/16/21 04:55 06/16/21 04:55 Labs: Abnormal Lab Results - Last 24 Hours (Table) 06/15/21 06/15/21 06/16/21 Range/Units 15:22 20:08 04:55 WBC 44.2 H (3.8-10.6) k/uL Neutrophils # 43.2 H (1.3-7.7) k/uL Lymphocytes # 0.4 L (1.0-4.8) k/uL D-Dimer (<0.60) mg/L FEU ABG pH 7.15 L* 7.06 L* (7.35-7.45) ABG pCO2 72 H* 87 H* (35-45) mmHg ABG pO2 67 L (83-108) mmHg ABG Total CO2 27 H 27 H (19-24) mmol/L ABG O2 Saturation 86.9 L (94-97) % Chloride (98-107) mmol/L BUN (9-20) mg/dL Glucose (74-99) mg/dL POC Glucose (mg/dL) (75-99) mg/dL Calcium (8.4-10.2) mg/dL Total Bilirubin (0.2-1.3) mg/dL ALT (4-49) U/L Alkaline Phosphatase (38-126) U/L Total Protein (6.3-8.2) g/dL Albumin (3.5-5.0) g/dL 06/16/21 06/16/21 06/16/21 Range/Units 04:55 04:55 04:55 WBC (3.8-10.6) k/uL Neutrophils # (1.3-7.7) k/uL Lymphocytes # (1.0-4.8) k/uL D-Dimer >34.10 H (<0.60) mg/L FEU ABG pH (7.35-7.45) ABG pCO2 (35-45) mmHg ABG pO2 (83-108) mmHg ABG Total CO2 (19-24) mmol/L ABG O2 Saturation (94-97) % Chloride 109 H (98-107) mmol/L BUN 27 H (9-20) mg/dL Glucose 117 H (74-99) mg/dL POC Glucose (mg/dL) 119 H (75-99) mg/dL Calcium 7.4 L (8.4-10.2) mg/dL Total Bilirubin 1.5 H (0.2-1.3) mg/dL ALT 80 H (4-49) U/L Alkaline Phosphatase 167 H (38-126) U/L Total Protein 5.2 L (6.3-8.2) g/dL Albumin 2.4 L (3.5-5.0) g/dL 06/16/21 06/16/21 06/16/21 Range/Units 05:34 11:27 11:55 WBC (3.8-10.6) k/uL Neutrophils # (1.3-7.7) k/uL Lymphocytes # (1.0-4.8) k/uL D-Dimer (<0.60) mg/L FEU ABG pH 7.15 L* (7.35-7.45) ABG pCO2 71 H* (35-45) mmHg ABG pO2 (83-108) mmHg ABG Total CO2 27 H (19-24) mmol/L ABG O2 Saturation 98.0 H (94-97) % Chloride (98-107) mmol/L BUN (9-20) mg/dL Glucose (74-99) mg/dL POC Glucose (mg/dL) 107 H 120 H (75-99) mg/dL Calcium (8.4-10.2) mg/dL Total Bilirubin (0.2-1.3) mg/dL ALT (4-49) U/L Alkaline Phosphatase (38-126) U/L Total Protein (6.3-8.2) g/dL Albumin (3.5-5.0) g/dL Microbiology - Last 24 Hours (Table) 06/14/21 15:21 Gram Stain - Final Sputum Sputum Culture - Final
--- NOTE | 2021-06-16 18:58 | PN ---
PROGRESS NOTE DATE OF SERVICE: 06/16/2021. REASON FOR FOLLOW UP: Pneumonia. INTERVAL HISTORY: The patient remains to be intubated on the vent. The patient is currently on 60% FiO2. He is on low-dose pressor. No significant purulent secretions through the ET, diarrhea or any other changes reported by nursing staff. PHYSICAL EXAMINATION: Blood pressure is 100/53 with a pulse of 130, temperature 98. He is 98% on 50% FIO2. General description is an elderly male lying in bed in no distress. Respiratory system: Unlabored breathing, decreased breath sounds in the base. No wheeze. Heart S1, S2. Regular rate and rhythm. Abdomen soft, no tenderness. LABS: Hemoglobin is 13, white count 44, creatinine 1.06. DIAGNOSTIC IMPRESSION AND PLAN: Patient with acute respiratory failure which is multifactorial in this patient hence ended up getting intubated. Now with significant elevated white count, possible steroid effect plus/minus oropharyngeal candidiasis. The patient is already on cefepime and Diflucan. Cultures will be repeated and clinical course will be monitored closely. Prognosis remains guarded. MMODL / IJN: [id number] /
[2021-06-16] MEDS: AMIODARONE 450 MG in DEXTROSE 5% IN WATER 250 ML IV SCH ×2 (23:00)
[2021-06-17] MEDS: CEFEPIME 2 GM in SODIUM CHLORIDE 0.9% 100 ML IVPB SCH ×2 (00:38→09:51)
[2021-06-17] MEDS: ARTIFICIAL TEARS-HYPROMELLOSE DROPS 15 ML BTL BOTH EYES SCH ×6 (00:40→19:46)
[2021-06-17] MEDS: SODIUM CHLORIDE 0.9% 1,000 ML IV SCH ×3 (00:40→16:14)
[2021-06-17 05:17] LABS: ABG Base Excess -8.2 mmol/L; ABG HCO3 20 mmol/L (21-25); ABG Oxygen Saturation 94.3 % (94-97); ABG PCO2 57 mmHg (35-45); ABG PO2 68 mmHg (83-108); ABG TCO2 22 mmol/L (19-24); Allen Test Performed? Yes
[2021-06-17 05:20] LABS: ABG PH 7.16 (7.35-7.45)
[2021-06-17 05:30] LABS: HCT 39.1 % (39.0-53.0); HGB 12.2 gm/dL (13.0-17.5); Hypochromasia Moderate; MCH 29.6 pg (25.0-35.0); MCHC 31.2 g/dL (31.0-37.0); Platelet Count 126 k/uL (150-450); RBC 4.12 m/uL (4.30-5.90); RDW 14.3 % (11.5-15.5); WBC 26.1 k/uL (3.8-10.6)
[2021-06-17 05:48] LABS: Albumin 2.1 g/dL (3.5-5.0); Total Bilirubin 0.8 mg/dL (0.2-1.3); Total Protein 4.6 g/dL (6.3-8.2)
[2021-06-17] MEDS: NOREPINEPHRINE 8 MG in SODIUM CHLORIDE 0.9% 250 ML IV SCH ×2 (05:55→14:52)
[2021-06-17 07:47] LABS: Glucose,Whole Blood 151 mg/dL (75-99)
--- NOTE | 2021-06-17 08:08 | XR ---
EXAMINATION TYPE: XR chest 1V portable DATE OF EXAM: 06/17/2021 Comparison: 06/16/2021 Clinical History: 75-year-old male Tube placement Findings: ET tube tip estimated at 2.7 cm from the evette. Left subclavian CVC tip at the lower SVC. NG tube co urses below the diaphragm. Heart remains unenlarged. Diffuse interstitial and groundglass opacities g reatest in the mid and lower lungs persist. Impression: 1. ET tube tip 2.7 cm from the evette. Consider pulling back 1.5 cm and reassessing at follow-up. 2. Continued diffuse interstitial changes and groundglass in the mid and lower lungs.
[2021-06-17] MEDS: ALBUTEROL HFA INHALER INHALATION SCH ×4 (08:11→21:06)
[2021-06-17] MEDS ORDERED: dexAMETHasone 4 MG TAB PO SCH (09:00)
[2021-06-17] MEDS: BENZONATATE 100 MG CAP PO SCH ×3 (09:46→21:00)
[2021-06-17] MEDS: CHLORHEXIDINE GLUCONATE 15 ML CUP MUCOUS MEM SCH ×2 (09:51→19:45)
[2021-06-17] MEDS: ASPIRIN 81 MG PO SCH (09:51)
[2021-06-17] MEDS: PANTOPRAZOLE 40 MG/10 ML VIAL IVP SCH ×2 (09:52→19:46)
[2021-06-17] MEDS: CHOLECALCIFEROL 25 MCG (1000 IU) TABLET PO SCH (09:54)
[2021-06-17] MEDS: APIXABAN 5 MG TAB PO SCH ×2 (09:54→19:46)
[2021-06-17] MEDS ORDERED: FUROSEMIDE 10 MG/ML 4 ML VIAL IV STA (10:34)
[2021-06-17] MEDS: CYANOCOBALAMIN 500 MCG TAB PO SCH (10:43)
[2021-06-17] MEDS: ASCORBIC ACID 500 MG TAB PO SCH (10:43)
[2021-06-17] MEDS: ZINC SULFATE 220 MG CAP PO SCH (10:43)
[2021-06-17] MEDS: SENNOSIDES 8.6 MG TAB PO SCH ×2 (10:48→19:47)
[2021-06-17] MEDS: FLUCONAZOLE 100 MG TAB PO SCH (10:49)
[2021-06-17 11:40] LABS: Eosinophils # (M) 0.26 k/uL (0-0.7); Lymphocytes # (M) 0.26 k/uL (1.0-4.8); Monocytes # (M) 0.52 k/uL (0-1.0); Neutrophils # (M) 25.06 k/uL (1.3-7.7); Neutrophils % (M) 96 %; Nucleated Red Blood Cells 0 /100 WBC (0-0); Total Cells Counted 100
[2021-06-17] MEDS ORDERED: SODIUM CHLORIDE 0.45% 1,000 ML IV SCH (12:15)
--- NOTE | 2021-06-17 12:18 | P.PN ---
Subjective Progress Note Date: 06/17/21 Principal diagnosis: Acute hypoxic respiratory failure secondary to COVID-19 pneumonia. 06/16/2021, the patient is already intubated and on a mechanical ventilator. He was brought up to the intensive care unit yesterday. He was significantly short of breath and he was placed on BiPAP which was kept on for several hours and he was unable to stabilize and at that point we decided to proceed with intubation mechanical ventilation. 2 triple-lumen catheter nausea none was also established. This morning, the patient is on propofol which is running at 50 mL an hour and the patient is also requiring dialysis and he is on the backs running at 1 mcg/kg per minute. He is quite suggestive mechanical ventilator. He is currently on assist control mode at the rate of 36 and a tidal volume of 400 and FiO2 of 75% with a PEEP of 16. Blood gases showed a pH of 7.15 with a pCO2 of 71 and pO2 of 107. The patient's chest x-ray from today is showing diffuse bilateral pulmonary infiltrates consistent with pneumonia related to COVID-19/ARDS. Orotracheal tube is in a good location. Orogastric tube was also and good location. The white cell count is up to 44.2. Note that earlier sputum samples that were collected on this patient from 06/02/2021 was consistent with pseudomonas aeruginosa and Essence. For now, the patient is on IV cefepime at a dose of 2 g every 12 hours. Repeat cultures were sent. Note that the inflammatory markers on this patient indicate a d-dimer of more than 34, LDH level was 2277 from 06/15/2021, CRP level was 4.6. The throat calcitonin level was 0.03. I'm not absolutely sure if the patient is infected. That pseudomonal culture is rather old. Nevertheless he has developed some leukocytosis and based on a previous pseudomonal growth, cover the patient with IV cefepime 2 g every 12 hours. The patient is also on prednisone at a dose of 40 mg by mouth daily. He was also given Baricitinib which she completed. He developed an extensive oropharyngeal candidiasis and the patient is currently on Diflucan. Afebrile. Hemodynamically, the patient is requiring pressors and the patient is currently on 0.15 mcg/kg per minute of norepinephrine infusion. IV fluids as in the form of normal saline at the rate of 50 mL an hour. The patient received a total of 2 L of normal saline bolus yesterday. The patient is currently nothing by mouth and enteral feeding has not been initiated. Patient was reevaluated today on 06/17/2021, patient remains intubated and mechanically ventilated. Vent settings are assist control rate of 36, volume 400 FiO2 60% PEEP of 14. ABG showed a pO2 of 68 pCO2 of 57 pH of 7.16. Hence the ventilator was changed to volume of 430 increased the flow to 70 L/m decreased FiO2 to 55%. Drips include propofol at 50 mcg/kg/m, amiodarone at 0.5 mg/m Nimbex at 1, norepinephrine at 0.2 mcg/kg/m, IV fluid at 1 50 mL per hour. Patient remains sedated, paralyzed, no major change in the last 24 hours. Chest x-ray continues to show bilateral infiltrates, not much of a change. WBC count is 26.1 hemoglobin is 12.2 d-dimer is 27.6. Electrolytes were reviewed bicarb is 19 BUN is 39 creatinine 2.29, this is a dramatic change in his renal profile, hence nephrology was consulted pro calcitonin is 24.4. Sputum is positive for Pseudomonas and Essence. Patient was intubated on 06/15 remains on Solu-Medrol at 60 mg every 6 hours, he was on baricitinib, , and this was discontinued Objective - Vital Signs Vital signs: Vital Signs Temp 99.2 F 06/17/21 09:00 Pulse 105 H 06/17/21 11:00 Resp 36 H 06/17/21 11:00 BP 134/75 06/16/21 00:30 Pulse Ox 95 06/17/21 11:00 Intake & Output 06/16/21 06/17/21 06/17/21 18:59 06:59 18:59 Intake Total 3183.93 2685.832 935.839 Output Total 785 365 55 Balance 2398.93 2320.832 880.839 Weight 106.6 kg Intake: IV 2600 2150 750 Sodium Chloride 0.9% 1, 1550 2150 750 000 ml @ 150 mls/hr IV . Q6H40M [facility] Rx#:[id number] Sodium Chloride 0.9% 1, 1050 000 ml @ 999 mls/hr IV . Q1H1M [facility] Rx#:[id number] Intake, IV Titration 583.93 535.832 185.839 Amount Cisatracurium 200 mg In 125.93 Sodium Chloride 0.9% 180 ml @ 1 MCG/KG/MIN 5.88 mls/hr IV .Q24H [facility] Rx#: [id number] Norepinephrine 8 mg In 258 248.42 85.839 Sodium Chloride 0.9% 250 ml @ 0.05 MCG/KG/MIN 9. 482 mls/hr IV .Q24H [facility] Rx#:[id number] propofoL 1,000 mg In 200 287.412 100 Empty Bag 1 bag @ Titrate IV .Q0M [facility] Rx#: [id number] Output: Urine 785 365 55 Other: Voiding Method Indwelling Catheter Indwelling Catheter ABP, PAP, CO, CI - Last Documented Arterial Blood Pressure 115/57 - Exam Physical Exam: Revealed a 75-year-old white male intubated, sedated, paralyzed, on mechanical ventilation. Head: Atraumatic, normocephalic. HEENT:[Neck is supple.] [No neck masses.] [No thyromegaly.] [No JVD.] Endotracheal tube and orogastric tube are intact. Chest: Symmetrical chest expansion, good airflow bilaterally, however crackles and rhonchi noted at the bases Cardiac Exam: Distant S1 and S2, no S3 gallop. No murmur. Abdomen: [Obese, Soft, nontender, no megaly, no rebound, no guarding, normal bowel sounds.] Extremities: [No clubbing, 1+ bipedal edema, no cyanosis.] Neurological Exam: Could not be assessed, patient is sedated and paralyzed. Psychiatric: Could not be assessed. Patient is sedated and paralyzed. Skin: No rashes. - Labs CBC & Chem 7: 06/17/21 05:22 06/17/21 05:22 Labs: Abnormal Lab Results - Last 24 Hours (Table) 06/16/21 06/17/21 06/17/21 Range/Units 04:55 05:01 05:22 WBC 26.1 H (3.8-10.6) k/uL RBC 4.12 L (4.30-5.90) m/uL Hgb 12.2 L (13.0-17.5) gm/dL Plt Count 126 L (150-450) k/uL Neutrophils # (Manual) 25.06 H (1.3-7.7) k/uL Lymphocytes # (Manual) 0.26 L (1.0-4.8) k/uL D-Dimer (<0.60) mg/L FEU ABG pH 7.16 L* (7.35-7.45) ABG pCO2 57 H (35-45) mmHg ABG pO2 68 L (83-108) mmHg ABG HCO3 20 L (21-25) mmol/L Chloride (98-107) mmol/L Carbon Dioxide (22-30) mmol/L BUN (9-20) mg/dL Creatinine (0.66-1.25) mg/dL Glucose (74-99) mg/dL POC Glucose (mg/dL) (75-99) mg/dL Calcium (8.4-10.2) mg/dL ALT (4-49) U/L Total Protein (6.3-8.2) g/dL Albumin (3.5-5.0) g/dL Procalcitonin 12.00 H (0.02-0.09) ng/mL 06/17/21 06/17/21 06/17/21 Range/Units 05:22 05:22 05:22 WBC (3.8-10.6) k/uL RBC (4.30-5.90) m/uL Hgb (13.0-17.5) gm/dL Plt Count (150-450) k/uL Neutrophils # (Manual) (1.3-7.7) k/uL Lymphocytes # (Manual) (1.0-4.8) k/uL D-Dimer 27.06 H (<0.60) mg/L FEU ABG pH (7.35-7.45) ABG pCO2 (35-45) mmHg ABG pO2 (83-108) mmHg ABG HCO3 (21-25) mmol/L Chloride 114 H (98-107) mmol/L Carbon Dioxide 19 L (22-30) mmol/L BUN 39 H (9-20) mg/dL Creatinine 2.29 H (0.66-1.25) mg/dL Glucose 138 H (74-99) mg/dL POC Glucose (mg/dL) (75-99) mg/dL Calcium 7.0 L (8.4-10.2) mg/dL ALT 52 H (4-49) U/L Total Protein 4.6 L (6.3-8.2) g/dL Albumin 2.1 L (3.5-5.0) g/dL Procalcitonin 24.40 H (0.02-0.09) ng/mL 06/17/21 Range/Units 07:45 WBC (3.8-10.6) k/uL RBC (4.30-5.90) m/uL Hgb (13.0-17.5) gm/dL Plt Count (150-450) k/uL Neutrophils # (Manual) (1.3-7.7) k/uL Lymphocytes # (Manual) (1.0-4.8) k/uL D-Dimer (<0.60) mg/L FEU ABG pH (7.35-7.45) ABG pCO2 (35-45) mmHg ABG pO2 (83-108) mmHg ABG HCO3 (21-25) mmol/L Chloride (98-107) mmol/L Carbon Dioxide (22-30) mmol/L BUN (9-20) mg/dL Creatinine (0.66-1.25) mg/dL Glucose (74-99) mg/dL POC Glucose (mg/dL) 151 H (75-99) mg/dL Calcium (8.4-10.2) mg/dL ALT (4-49) U/L Total Protein (6.3-8.2) g/dL Albumin (3.5-5.0) g/dL Procalcitonin (0.02-0.09) ng/mL Microbiology - Last 24 Hours (Table) 06/14/21 15:21 Gram Stain - Final Sputum Sputum Culture - Final Assessment and Plan Assessment: Acute hypoxic respiratory failure secondary to COVID-19 pneumonia, patient was intubated on 06/15/2011/03/2020, remains intubated and mechanically ventilated. Peak airway pressure is 34 and plateau pressure is 32. Acute hypercapnic respiratory failure secondary to COVID-19 pneumonia and ARDS. Secondary to COVID-19 pneumonia Suspect superimposed pseudomonas aeruginosa pneumonia based on positive sputum cultures and elevated pro calcitonin. Elevated inflammatory markers secondary to above. Paroxysmal atrial fibrillation Extensive oropharyngeal candidiasis, on Diflucan. Leukocytosis secondary to above. Sepsis and septic shock secondary to infection including COVID-19 pneumonia and suspect pseudomonas aeruginosa pneumonia. Recommendation: Continue present supportive care measures, vent adjustment was made earlier today. Down to 55%, tidal volume increased to 430 and increase his Flovent to 70 L/m. Start enteral tube feeding again today. Continue IV fluids. Continue COVID-19 cocktail. Continue nutritional support, Continue hemodynamic support using norepinephrine. Continue cefepime and Diflucan. Discontinue Baricitinib, already discontinued by Dr. Welsh. Decadron 6 mg IV push daily Consider dropping the PEEP further tomorrow. Continue GI and DVT prophylaxis. Patient is on Eliquis. Condition remains basically critical. Critical care time is over 30 minutes. Time with Patient: Greater than 30
[2021-06-17] MEDS: DEXAMETHASONE SOD PHOSPHATE 10 MG/ML 1 ML VIAL IV SCH (13:36)
[2021-06-17] MEDS: SODIUM CHLORIDE 0.45% 1,000 ML with SODIUM BICARB (1 MEQ/ML) 100 ML IV SCH ×4 (13:37→23:00)
[2021-06-17] MEDS: AMIODARONE 450 MG in DEXTROSE 5% IN WATER 250 ML IV SCH ×4 (14:52→15:06)
--- NOTE | 2021-06-17 16:02 | P.PN ---
Subjective Progress Note Date: 06/17/21 This is a 75-year-old male who was recently admitted with COVID-19 infection with acute hypoxic respiratory failure and is being closely monitored. Pulmonary following closely and patient is maintained on dexamethasone along with Lovenox and vitamin and zinc supplements. Patient currently maintained on 15 L high flow via nasal cannula with supplemental use of 15 L nonrebreather. Patient states his breathing is slightly improved and not requiring a nonrebreather as often. Instructed the patient to use incentive spirometer and increase activity as tolerated. Patient continues to be extremely weak and will have PT/OT evaluate the patient once more stable. 06/06/2021 Patient is seen in follow-up this morning states his shortness of breath has slightly worsened and his recovery time and working to breathe has become more difficult. Patient is continued on 15 L high flow along with nonrebreather intermittently and having to use it more frequently today he states. Incentive spirometer at the bedside and instructed the patient to continue to use at least 10 times every hour while awake and encouraged increased activity as tolerated. Patient states he walked to the bathroom with assistance and became extremely dyspneic. Patient is afebrile. D-dimer is 4.72 with a WBC of 16 and hemoglobin is stable at 15.4. Sodium is 138 with a potassium of 4.5 and current creatinine is 0.63. LDH is elevated at 2492 and CRP is 6.5. Chest x-ray today shows findings consistent with COVID-19 pneumonia with bilateral interstitial and airspace disease present. 06/07/2021 Patient is seen and evaluated in follow up this morning and is having increasing shortness of breath and on 15L high flow via NC and 15 L non-rebreather. Patient has been back in bed and attempting position changes frequently along with prone position. Patient continues on lovenox, baracitinib, vitamin and zinc supplement s,and steroids. Pulmonary following closely. 06/10/2021 Patient is seen in follow up this morning and is now maintained on airvo at 60% and continues to be extremely dyspneic with minimal exertion. Patient also continues with 15L Non rebreather as needed. Patient is maintained on lovenox along with baricitinib and IV steroids with pulmonary following. Patient states he has no reserve and taking longer periods of time to recover with attempting to position change or use the urinal. 06/11/2021 Patient is seen in follow-up and evaluated this morning and is continued on Airvo and maintaining oxygen saturations in the low 90s. Pulmonary following closely. Patient is afebrile. Patient is continued on vitamin and zinc supplements along with Baricitinib and subcutaneous Lovenox along with IV steroids and will continue. Patient's d-dimer today is elevated at 18.25 and will increase Lovenox to 50 subcu twice daily. White blood count today is 18.6 and hemoglobin is stable at 13.7, sodium is 139 with a potassium of 4.3 current creatinine is 0.7. Inflammatory markers are elevated with some trending down and CRP is 1.5, LDH is 1968 and alk phos is 168. Patient is afebrile. Patient continues to be extremely anxious and will continue Xanax as needed. Encouraged increase activity as tolerated and continued position changes with incentive spirometer use. 06/12/2021 Patient is seen in follow-up this morning with no acute issues noted overnight. Patient continues on Airvo with a flow rate of 55 and FiO2 of 80% maintaining oxygen saturations above 90%. Pulmonary following closely and we'll continue to wean as tolerated. Patient continues on Lovenox twice daily along with vitamin and zinc supplements and continued on IV steroids along with albuterol and Baricitinib. White blood count is 23.7 with a hemoglobin of 14.1, sodium is 139 with a potassium of 4.4 and current creatinine is 0.62. Will repeat chest x-ray along with inflammatory markers in the morning. 06/13/2021 Patient is seen and evaluated in follow-up as morning and continues to be on Airvo. Patient appears to be more raspy with some sputum and congested today with a hoarse voice. Infectious disease and pulmonary following closely. Sputum culture from 06/02 just today preliminary showing gram-negative bacilli along with Essence albicans and patient is being started on IV cefepime with repeat sputum culture ordered along with oral Diflucan. White blood count is 23.5 with hemoglobin of 13.8, sodium is 137 and potassium is 5.5 and current creatinine is 0.55. LFTs are mildly elevated. Repeat d-dimer along with CRP and LDH have been ordered. Will repeat a.m. labs. Chest x-ray today shows con tinued peripheral and lower lung interstitial infiltrates of Covid pneumonia without significant change. 06/14/2021 Patient is seen and evaluated in follow-up this morning continues to be dyspneic and requesting to go to the bed as he has been sitting up in the chair all day. Patient has been started on Diflucan along with IV cefepime and sputum culture from 06/02/2021 resulted showing Pseudomonas aeruginosa along with Essence albicans. Infectious disease is following closely. Patient is completing Baricitinib and will be transitioned to oral prednisone taper with pulmonary following closely. Patient has been started on eliquis. D-dimer today has trended down to 11.02, LDH is 2178, CRP is 3.2, liver functions trending down. White blood count slightly trending down at 20.2 and hemoglobin is stable at 13.7, sodium is 136 with a potassium of 4.3 and current creatinine is 0.57. Continues to have a mildly raspy voice with some throat dryness and will add Cepacol. 06/15/2021 Patient evaluated in bed and is resting on the BiPAP in the intensive care unit, he had desaturated this morning will be moved to the bathroom and initially was on a 15L HF, however is now requiring BiPAP. Patient was started on a Precedex drip. Repeat chest x-ray today which revealed persistent multifocal and confluent bilateral reticulonodular opacities is consistent with known coronary infection more prominent in the lower lungs. Patient finished a course of therapy with Baricitinib and transitioned to oral prednisone. Labs reviewed today include a white blood cell count 21.2, hemoglobin of 12.5. Blood gases show a pO2 of 32 and O2 saturation of 50.3. Chloride is 110, CO2 20, sodium 137, potassium 4. LDH is worse today at 2277, alk phos 158, CRP is trending upwards of 4.6. Patient has remained afebrile, heart rate is now 83, respirations 32, blood pressure 124/68. Oxygen saturation is maintaining in the mid to high 80s on 100% BiPAP. Patient is nothing by mouth and oral medications are unable to be given. Patient is on IV cefepime for a sputum culture positive for Pseudomonas. He is IV Diflucan for oral candidiasis that was improving as of yesterday. 06/16/2021 Patient is evaluated in the intensive care unit, he is status post intubation and has NG tube in place. Labs reviewed today included white blood cell, 44.2, d-dimer greater than 34. ABGs from the A-line included a pH of 7.15, pCO2 of 71, total CO2 is 27 and oxygen saturation of 98. Bicarb is 25 and his pO2 is 107. Additional labs include a serum potassium 5.1, chloride of 109, BUN of 27, creatinine 1.06. Vital signs include a heart rate of 123 tachycardia, respiratory rate of 36, blood pressure 100/50, he is 98% oxygen saturation. Patient is on vasopressors for his blood pressure. Repeat blood cultures are negative. Patient is receiving propofol for sedation. His chest x-ray was reviewed which is showing bilateral pulmonary infiltrates demonstrating COVID- 19 pneumonia with ARDS. Patient is still getting IV cefepime for a sputum culture Pseudomonas although his pro calcitonin level is 0.03 which is not usually indicative of a bacterial infection. Additional inflammatory markers remain elevated. Patient did receive 2 L saline bolus. Repeat labs in the morning, prognosis is guarded for this patient. 06/17/2021 Patient is seen in follow-up continues to be monitored closely in the ICU with multiple medical consultations following. Prognosis is extremely guarded. Patient's respiratory status significantly worsened requiring mechanical ventilation and intubation and currently patient is sedated. White blood count is worsened at 26.1 and hemoglobin is 12.2, d-dimer is 27.06, ABG is 7.16 pH with a pCO2 of 57 and a pO2 of 68 and bicarb is 20, sodium is 140 with a potassium of 5.0 and current creatinine has worsened at 2.29 pro calcitonin is 24.40. 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 Patient continues on cefepime along with eliquis, vitamin and zinc supplements and patient has finished Baricitinib. Patient was on oral Decadron and is being transitioned back to IV dexamethasone along with Diflucan. Patient was given a dose of IV Lasix and nephrology has been consulted. Cardiology consulted as well and patient is currently on amiodarone drip along with Cleviprex and currently sedated on propofol. Patient also has norepinephrine drip as well. Patient being started on sodium bicarb drip. Patient also has low-grade fevers. Review of systems: Unable to complete a full review of symptoms as patient is sedated and on a ve ntilator. Active Medications Acetaminophen (Acetaminophen Tab 325 Mg Tab) 650 mg PO Q6HR PRN PRN Reason: Fever and/ or Mild Pain Last Admin: 06/14/21 22:22 Dose: 650 mg Documented by: Albuterol Sulfate (Albuterol Hfa Inhaler) 2 puff INHALATION RT-QID [facility] Last Admin: 06/17/21 12:19 Dose: 2 puff Documented by: Albuterol Sulfate (Albuterol Hfa Inhaler) 2 puff INHALATION RT-QID PRN PRN Reason: Shortness Of Breath Or Wheezing Last Admin: 06/15/21 03:30 Dose: 2 puff Documented by: Apixaban (Apixaban 5 Mg Tab) 5 mg PO BID [facility]; Protocol Last Admin: 06/17/21 09:54 Dose: 5 mg Documented by: Artificial Tears (Artificial Tears-Hypromellose Drops 15 Ml Btl) 2 drops BOTH EYES Q4HR [facility] Last Admin: 06/17/21 12:24 Dose: 2 drops Documented by: Ascorbic Acid (Ascorbic Acid 500 Mg Tab) 500 mg PO DAILY [facility] Last Admin: 06/17/21 10:43 Dose: 500 mg Documented by: Aspirin (Aspirin 81 Mg) 81 mg PO DAILY [facility] Last Admin: 06/17/21 09:51 Dose: 81 mg Documented by: Benzocaine/Menthol (Benzocaine/Menthol Lozeng 1 Each Lozenge) 1 each MUCOUS MEM Q4HR PRN PRN Reason: Sore Throat Benzonatate (Benzonatate 100 Mg Cap) 200 mg PO TID [facility] Last Admin: 06/17/21 09:46 Dose: Not Given Documented by: Chlorhexidine Gluconate (Chlorhexidine Gluconate 15 Ml Cup) 15 ml MUCOUS MEM BID [facility] Last Admin: 06/17/21 09:51 Dose: 15 ml Documented by: Cholecalciferol (Cholecalciferol 25 Mcg (1000 Iu) Tablet) 25 mcg PO DAILY [facility] Last Admin: 06/17/21 09:54 Dose: 25 mcg Documented by: Cyanocobalamin (Cyanocobalamin 500 Mcg Tab) 1,000 mcg PO DAILY [facility] Last Admin: 06/17/21 10:43 Dose: 1,000 mcg Documented by: Dexamethasone Sodium Phosphate (Dexamethasone Sod Phosphate 10 Mg/Ml 1 Ml Vial) 6 mg IV DAILY [facility] Last Admin: 06/17/21 13:36 Dose: 6 mg Documented by: Fluconazole (Fluconazole 100 Mg Tab) 100 mg PO DAILY [facility] Last Admin: 06/17/21 10:49 Dose: 100 mg Documented by: Propofol 1,000 mg/ IV Solution 100 mls @ 0 mls/hr IV .Q0M [facility]; Protocol Last Admin: 06/17/21 09:07 Dose: 50 mcg/kg/min, 31.98 mls/hr Documented by: Norepinephrine Bitartrate 8 mg (/ Sodium Chloride) 258 mls @ 9.482 mls/hr IV .Q24H [facility]; Protocol Last Admin: 06/17/21 14:52 Dose: 0.09 mcg/kg/min, 17.067 mls/hr Documented by: Cisatracurium Besylate 200 mg/ (Sodium Chloride) 200 mls @ 5.88 mls/hr IV .Q24H [facility]; Protocol Last Admin: 06/16/21 13:55 Dose: 1 mcg/kg/min, 5.88 mls/hr Documented by: Cefepime HCl 1 gm/ Sodium (Chloride) 50 mls @ 12.5 mls/hr IVPB Q12HR [facility] Sodium Bicarbonate 100 ml/ (Sodium Chloride) 1,100 mls @ 150 mls/hr IV .Q7H20M [facility] Last Admin: 06/17/21 13:37 Dose: 150 mls/hr Documented by: Amiodarone HCl 450 mg/ (Dextrose/Water) 250 mls @ 16.667 mls/hr IV .Q15H [facility]; Protocol Stop: 06/18/21 08:59 Last Admin: 06/17/21 14:52 Dose: 0.5 mg/min, 16.667 mls/hr Documented by: Pantoprazole Sodium (Pantoprazole 40 Mg/10 Ml Vial) 40 mg IVP BID [facility] Last Admin: 06/17/21 09:52 Dose: 40 mg Documented by: Senna (Sennosides 8.6 Mg Tab) 8.6 mg PO BID [facility] Last Admin: 06/17/21 10:48 Dose: 8.6 mg Documented by: Zinc Sulfate (Zinc Sulfate 220 Mg Cap) 220 mg PO DAILY [facility] Last Admin: 06/17/21 10:43 Dose: 220 mg Documented by: Physical exam: Gen: This is a 75-year-old male sedated and intubated on propofol and mechanical ventilation HEENT: Head is atraumatic, normocephalic. Pupils equal, round. Sclerae is anicteric. NECK: Supple. No JVD. No lymphadenopathy. No thyromegaly. LUNGS: Diminished breath sounds bilaterally with scattered coarse rhonchi noted. No intercostal retractions. HEART: Irregular, tachycardic ABDOMEN: Soft. Bowel sounds are present. No masses. No guarding or rigidity noted. EXTREMITIES: No pedal edema. No calf tenderness. NEUROLOGICAL: Patient is intubated and sedated Assessment: Acute COVID-19 infection with acute component of interstitial pneumonia, bilateral with acute hypoxic respiratory failure and possible sepsis secondary to COVID-19 Status post mechanical ventilation and intubation secondary to above, patient was on BiPAP and continued to deteriorate leading to intubation and currently sedated on propofol. Lactic acidosis secondary to above Initial sputum culture showing Essence albicans and pseudomonas aeruginosa and maintained on IV cefepime and repeat sputum culture pending, infectious disease following closely Oral candidiasis started on Diflucan, sputum cultures from 06/02/2021 Essence albicans Extensive interstitial bilateral COVID-19 pneumonia Elevated white blood count possibly secondary to above Possible subsegmental pulmonary embolism ruled out History of atrial fibrillation Anxiety Remote history of nicotine dependence GI prophylaxis: Protonix DVT prophylaxis: On eliquis Full code Plan: Recommend to continue with current medications and continue with inhalers, IV dexamethasone, and vitamin supplements. Patient has completed baricitinib. Pat ient currently on eliquis 5 mg twice a day. Patient respiratory status continued to deteriorate rapidly with no improvement on 100% BiPAP and ultimately intubated and is being closely monitored in the ICU. Patient on multiple drips including amiodarone, norepinephrine, Levophed, IV cefepime, propofol, and Cleviprex as needed. Attempted to contact about CODE STATUS and overall prognosis and went to voicemail will continue to attempt to contact and discuss. Prognosis is extremely guarded. Objective - Vital Signs Vital signs: Vital Signs Temp 99.5 F 06/17/21 04:00 Pulse 116 H 06/17/21 07:00 Resp 36 H 06/17/21 07:00 BP 134/75 06/16/21 00:30 Pulse Ox 95 06/17/21 07:00 Intake & Output 06/16/21 06/17/21 06/17/21 18:59 06:59 18:59 Intake Total 3183.93 2685.832 150 Output Total 785 365 15 Balance 2398.93 2320.832 135 Weight 106.6 kg Intake: IV 2600 2150 150 Sodium Chloride 0.9% 1, 1550 2150 150 000 ml @ 150 mls/hr IV . Q6H40M [facility] Rx#:[id number] Sodium Chloride 0.9% 1, 1050 000 ml @ 999 mls/hr IV . Q1H1M [facility] Rx#:[id number] Intake, IV Titration 583.93 535.832 Amount Cisatracurium 200 mg In 125.93 Sodium Chloride 0.9% 180 ml @ 1 MCG/KG/MIN 5.88 mls/hr IV .Q24H [facility] Rx#: [id number] Norepinephrine 8 mg In 258 248.42 Sodium Chloride 0.9% 250 ml @ 0.05 MCG/KG/MIN 9. 482 mls/hr IV .Q24H [facility] Rx#:[id number] propofoL 1,000 mg In 200 287.412 Empty Bag 1 bag @ Titrate IV .Q0M [facility] Rx#: [id number] Output: Urine 785 365 15 Other: Voiding Method Indwelling Catheter Indwelling Catheter ABP, PAP, CO, CI - Last Documented Arterial Blood Pressure 111/60 - Labs CBC & Chem 7: 06/17/21 05:22 06/17/21 05:22 Labs: Abnormal Lab Results - Last 24 Hours (Table) 06/16/21 06/16/21 06/16/21 Range/Units 04:55 04:55 11:27 WBC (3.8-10.6) k/uL RBC (4.30-5.90) m/uL Hgb (13.0-17.5) gm/dL Plt Count (150-450) k/uL Neutrophils # 43.2 H (1.3-7.7) k/uL Lymphocytes # 0.4 L (1.0-4.8) k/uL D-Dimer (<0.60) mg/L FEU ABG pH (7.35-7.45) ABG pCO2 (35-45) mmHg ABG pO2 (83-108) mmHg ABG HCO3 (21-25) mmol/L Chloride (98-107) mmol/L Carbon Dioxide (22-30) mmol/L BUN (9-20) mg/dL Creatinine (0.66-1.25) mg/dL Glucose (74-99) mg/dL POC Glucose (mg/dL) 107 H (75-99) mg/dL Calcium (8.4-10.2) mg/dL ALT (4-49) U/L Total Protein (6.3-8.2) g/dL Albumin (3.5-5.0) g/dL Procalcitonin 12.00 H (0.02-0.09) ng/mL 06/16/21 06/17/21 06/17/21 Range/Units 11:55 05:01 05:22 WBC 26.1 H (3.8-10.6) k/uL RBC 4.12 L (4.30-5.90) m/uL Hgb 12.2 L (13.0-17.5) gm/dL Plt Count 126 L (150-450) k/uL Neutrophils # (1.3-7.7) k/uL Lymphocytes # (1.0-4.8) k/uL D-Dimer (<0.60) mg/L FEU ABG pH 7.16 L* (7.35-7.45) ABG pCO2 57 H (35-45) mmHg ABG pO2 68 L (83-108) mmHg ABG HCO3 20 L (21-25) mmol/L Chloride (98-107) mmol/L Carbon Dioxide (22-30) mmol/L BUN (9-20) mg/dL Creatinine (0.66-1.25) mg/dL Glucose (74-99) mg/dL POC Glucose (mg/dL) 120 H (75-99) mg/dL Calcium (8.4-10.2) mg/dL ALT (4-49) U/L Total Protein (6.3-8.2) g/dL Albumin (3.5-5.0) g/dL Procalcitonin (0.02-0.09) ng/mL 06/17/21 06/17/21 06/17/21 Range/Units 05:22 05:22 07:45 WBC (3.8-10.6) k/uL RBC (4.30-5.90) m/uL Hgb (13.0-17.5) gm/dL Plt Count (150-450) k/uL Neutrophils # (1.3-7.7) k/uL Lymphocytes # (1.0-4.8) k/uL D-Dimer 27.06 H (<0.60) mg/L FEU ABG pH (7.35-7.45) ABG pCO2 (35-45) mmHg ABG pO2 (83-108) mmHg ABG HCO3 (21-25) mmol/L Chloride 114 H (98-107) mmol/L Carbon Dioxide 19 L (22-30) mmol/L BUN 39 H (9-20) mg/dL Creatinine 2.29 H (0.66-1.25) mg/dL Glucose 138 H (74-99) mg/dL POC Glucose (mg/dL) 151 H (75-99) mg/dL Calcium 7.0 L (8.4-10.2) mg/dL ALT 52 H (4-49) U/L Total Protein 4.6 L (6.3-8.2) g/dL Albumin 2.1 L (3.5-5.0) g/dL Procalcitonin (0.02-0.09) ng/mL Microbiology - Last 24 Hours (Table) 06/14/21 15:21 Gram Stain - Final Sputum Sputum Culture - Final
[2021-06-17] MEDS ORDERED: FUROSEMIDE 10 MG/ML 10 ML VIAL IV STA (16:26)
[2021-06-17] MEDS: CISATRACURIUM 200 MG in SODIUM CHLORIDE 0.9% 180 ML IV SCH (16:57)
--- NOTE | 2021-06-17 19:41 | P.PN ---
Subjective Patient went into atrial fibrillation with RVR yesterday evening He was started on IV amiodarone Recommend Continue IV amiodarone at 0.5 mg/m Continue ICU care I spoke to the pulmonary team He is being intubated for acute respiratory failure at this time Prognosis grim Objective - Vital Signs Vital signs: Vital Signs Temp 98.2 F 06/17/21 16:00 Pulse 90 06/17/21 19:00 Resp 36 H 06/17/21 19:00 BP 134/75 06/16/21 00:30 Pulse Ox 94 L 06/17/21 19:00 Intake & Output 06/17/21 06/17/21 06/18/21 06:59 18:59 06:59 Intake Total 2685.832 2568.846 273.275 Output Total 365 285 40 Balance 2320.832 2283.846 233.275 Intake: IV 2150 1800 150 Sodium Chloride 0.45% 1, 600 150 000 ml @ 150 mls/hr IV . Q7H20M [facility] with Sodium Bicarb (1 Meq/ml) 100 ml Rx#:[id number] Sodium Chloride 0.9% 1, 2150 1200 000 ml @ 150 mls/hr IV . Q6H40M [facility] Rx#:[id number] Intake, IV Titration 535.832 618.846 93.275 Amount Cisatracurium 200 mg In 158.956 Sodium Chloride 0.9% 180 ml @ 1 MCG/KG/MIN 5.88 mls/hr IV .Q24H [facility] Rx#: [id number] Norepinephrine 8 mg In 248.42 259.890 Sodium Chloride 0.9% 250 ml @ 0.05 MCG/KG/MIN 9. 482 mls/hr IV .Q24H [facility] Rx#:[id number] propofoL 1,000 mg In 287.412 200 93.275 Empty Bag 1 bag @ Titrate IV .Q0M [facility] Rx#: [id number] Tube Feeding 120 30 Other 30 Output: Urine 365 285 40 Other: Voiding Method Indwelling Catheter Indwelling Catheter ABP, PAP, CO, CI - Last Documented Arterial Blood Pressure 137/47 - Labs CBC & Chem 7: 06/17/21 05:22 06/17/21 05:22 Labs: Abnormal Lab Results - Last 24 Hours (Table) 06/16/21 06/17/21 06/17/21 Range/Units 04:55 05:01 05:22 WBC 26.1 H (3.8-10.6) k/uL RBC 4.12 L (4.30-5.90) m/uL Hgb 12.2 L (13.0-17.5) gm/dL Plt Count 126 L (150-450) k/uL Neutrophils # (Manual) 25.06 H (1.3-7.7) k/uL Lymphocytes # (Manual) 0.26 L (1.0-4.8) k/uL D-Dimer (<0.60) mg/L FEU ABG pH 7.16 L* (7.35-7.45) ABG pCO2 57 H (35-45) mmHg ABG pO2 68 L (83-108) mmHg ABG HCO3 20 L (21-25) mmol/L Chloride (98-107) mmol/L Carbon Dioxide (22-30) mmol/L BUN (9-20) mg/dL Creatinine (0.66-1.25) mg/dL Glucose (74-99) mg/dL POC Glucose (mg/dL) (75-99) mg/dL Calcium (8.4-10.2) mg/dL ALT (4-49) U/L Total Protein (6.3-8.2) g/dL Albumin (3.5-5.0) g/dL Procalcitonin 12.00 H (0.02-0.09) ng/mL 06/17/21 06/17/21 06/17/21 Range/Units 05:22 05:22 05:22 WBC (3.8-10.6) k/uL RBC (4.30-5.90) m/uL Hgb (13.0-17.5) gm/dL Plt Count (150-450) k/uL Neutrophils # (Manual) (1.3-7.7) k/uL Lymphocytes # (Manual) (1.0-4.8) k/uL D-Dimer 27.06 H (<0.60) mg/L FEU ABG pH (7.35-7.45) ABG pCO2 (35-45) mmHg ABG pO2 (83-108) mmHg ABG HCO3 (21-25) mmol/L Chloride 114 H (98-107) mmol/L Carbon Dioxide 19 L (22-30) mmol/L BUN 39 H (9-20) mg/dL Creatinine 2.29 H (0.66-1.25) mg/dL Glucose 138 H (74-99) mg/dL POC Glucose (mg/dL) (75-99) mg/dL Calcium 7.0 L (8.4-10.2) mg/dL ALT 52 H (4-49) U/L Total Protein 4.6 L (6.3-8.2) g/dL Albumin 2.1 L (3.5-5.0) g/dL Procalcitonin 24.40 H (0.02-0.09) ng/mL 06/17/21 Range/Units 07:45 WBC (3.8-10.6) k/uL RBC (4.30-5.90) m/uL Hgb (13.0-17.5) gm/dL Plt Count (150-450) k/uL Neutrophils # (Manual) (1.3-7.7) k/uL Lymphocytes # (Manual) (1.0-4.8) k/uL D-Dimer (<0.60) mg/L FEU ABG pH (7.35-7.45) ABG pCO2 (35-45) mmHg ABG pO2 (83-108) mmHg ABG HCO3 (21-25) mmol/L Chloride (98-107) mmol/L Carbon Dioxide (22-30) mmol/L BUN (9-20) mg/dL Creatinine (0.66-1.25) mg/dL Glucose (74-99) mg/dL POC Glucose (mg/dL) 151 H (75-99) mg/dL Calcium (8.4-10.2) mg/dL ALT (4-49) U/L Total Protein (6.3-8.2) g/dL Albumin (3.5-5.0) g/dL Procalcitonin (0.02-0.09) ng/mL
[2021-06-17] MEDS: CEFEPIME 1 GM in SODIUM CHLORIDE 0.9% 50 ML IVPB SCH (19:46)
[2021-06-17 20:46] LABS: Glucose,Whole Blood 165 mg/dL (75-99)
[2021-06-18] MEDS: ARTIFICIAL TEARS-HYPROMELLOSE DROPS 15 ML BTL BOTH EYES SCH ×6 (00:38→21:18)
[2021-06-18 05:04] LABS: ABG Base Excess -5.8 mmol/L; ABG HCO3 21 mmol/L (21-25); ABG Oxygen Saturation 94.1 % (94-97); ABG PCO2 48 mmHg (35-45); ABG PH 7.26 (7.35-7.45); ABG PO2 66 mmHg (83-108); ABG TCO2 23 mmol/L (19-24)
[2021-06-18 05:31] LABS: Calcium 7.1 mg/dL (8.4-10.2); Potassium 4.7 mmol/L (3.5-5.1)
[2021-06-18 05:38] LABS: Basophils % (A) 0 %; Eosinophils % (A) 0 %; HGB 10.8 gm/dL (13.0-17.5); Hypochromasia Slight; Lymphocytes # (A) 0.3 k/uL (1.0-4.8); Lymphocytes % (A) 2 %; MCH 29.7 pg (25.0-35.0); MCHC 31.8 g/dL (31.0-37.0); MCV 93.4 fL (80.0-100.0); Mean Platelet Volume 8.8; Monocytes # (A) 0.3 k/uL (0-1.0); Monocytes % (A) 2 %; Neutrophils # (A) 15.8 k/uL (1.3-7.7); Neutrophils % (A) 96 %; RBC 3.64 m/uL (4.30-5.90); RDW 14.5 % (11.5-15.5); WBC 16.4 k/uL (3.8-10.6)
[2021-06-18 06:56] LABS: Anisocytosis (M) Present; Platelet Count 80 k/uL (150-450); Poikilocytosis (M) Present
--- NOTE | 2021-06-18 06:57 | XR ---
EXAMINATION TYPE: XR chest 1V portable DATE OF EXAM: 06/18/2021 CLINICAL HISTORY: Difficulty breathing progress study. TECHNIQUE: Single AP portable semiupright view of the chest is obtained. COMPARISON: Chest x-ray from one day earlier and older studies FINDINGS: Stable endotracheal and orogastric tubes. Stable left subclavian central venous catheter. Heart size stable and upper limits of normal. Persistent reticulonodular increased markings bilateral ly most prominent in the left greater than right lung bases were consolidation is redemonstrated. No pneumothorax seen. Osseous structures are intact. IMPRESSION: Bilateral confluent reticulonodular opacities with basilar consolidations consistent with known covid-19 infection, no significant change from one day earlier.
[2021-06-18] MEDS ORDERED: FUROSEMIDE 10 MG/ML 10 ML VIAL IV STA (07:07)
[2021-06-18] MEDS: SODIUM CHLORIDE 0.45% 1,000 ML with SODIUM BICARB (1 MEQ/ML) 100 ML IV SCH ×4 (07:41→18:15)
[2021-06-18] MEDS: AMIODARONE 450 MG in DEXTROSE 5% IN WATER 250 ML IV SCH ×6 (07:41→23:27)
[2021-06-18] MEDS: PANTOPRAZOLE 40 MG/10 ML VIAL IVP SCH ×2 (07:42→20:55)
[2021-06-18] MEDS: ASPIRIN 81 MG PO SCH (07:43)
[2021-06-18] MEDS: ASCORBIC ACID 500 MG TAB PO SCH (07:43)
[2021-06-18] MEDS: CHLORHEXIDINE GLUCONATE 15 ML CUP MUCOUS MEM SCH ×2 (07:43→20:56)
[2021-06-18] MEDS: CHOLECALCIFEROL 25 MCG (1000 IU) TABLET PO SCH (07:43)
[2021-06-18] MEDS: APIXABAN 5 MG TAB PO SCH ×2 (07:43→20:56)
[2021-06-18] MEDS: CYANOCOBALAMIN 500 MCG TAB PO SCH (07:43)
[2021-06-18] MEDS: ZINC SULFATE 220 MG CAP PO SCH (07:43)
[2021-06-18] MEDS: SENNOSIDES 8.6 MG TAB PO SCH ×2 (07:43→20:56)
[2021-06-18] MEDS: DEXAMETHASONE SOD PHOSPHATE 10 MG/ML 1 ML VIAL IV SCH (07:44)
[2021-06-18] MEDS: FLUCONAZOLE 100 MG TAB PO SCH (07:56)
[2021-06-18] MEDS: ALBUTEROL HFA INHALER INHALATION SCH ×4 (08:26→20:21)
[2021-06-18] MEDS: CEFEPIME 1 GM in SODIUM CHLORIDE 0.9% 50 ML IVPB SCH ×2 (09:03→20:56)
[2021-06-18] MEDS: fentaNYL (PF). 1,000 MCG in SODIUM CHLORIDE 0.9% 80 ML IV SCH (10:24)
[2021-06-18] MEDS: FUROSEMIDE 100 MG in SODIUM CHLORIDE 0.9% 90 ML IV SCH ×2 (10:53→17:51)
--- NOTE | 2021-06-18 11:32 | CONS ---
CONSULTATION REASON FOR CONSULT: Renal failure. HISTORY OF PRESENT ILLNESS: Patient is a 75-year-old male who was initially admitted to the hospital on 06/02 with shortness of breath. He was diagnosed with COVID-19 pneumonia. He does have history of chronic atrial fibrillation. Patient's respiratory status had improved. He did receive baricitinib and steroids. However, his respiratory status deteriorated two days ago and patient was brought into the ICU and was intubated. He has been hypotensive, currently maintained on Levophed. Serum creatinine was 1.06 mg/dL yesterday. Today it is 2.29. Urine output has dropped to about 10 mL/hour for the last few hours. Patient also developed atrial fibrillation with RVR and is currently maintain on amiodarone drip. He is maintained on Levophed at 0.05 mcg/kg. He is also maintained on IV fluids now at 150 mL/hour. CO2 is noted to be on the lower side at 19. Patient's potassium has been running 5 to 5.1. FiO2 is at 55%. PAST MEDICAL HISTORY: Significant for atrial fibrillation, BPH, cholecystectomy. PAST SURGICAL HISTORY: Cholecystectomy, hernia repair, knee arthroplasty bilaterally. SOCIAL HISTORY: Patient is a former smoker. No history of drug abuse or alcohol abuse. MEDICATIONS: Medications prior to admission included vitamin C, albuterol, aspirin, calcium, metoprolol, Zofran, zinc. ALLERGIES: NONE. PHYSICAL EXAMINATION: Patient is currently sedated. He is on the vent. Blood pressure is 114/56, heart rate 104 per minute. Patient is afebrile. Examination of lower extremities shows edema 1+ bilaterally. Abdomen is soft, nontender. Scrotal edema is noted. COMMUNICATIONS TECH exam cannot be performed. LABS: Labs show sodium 140, potassium 5.0, chloride 114. CO2 is 19, BUN 39, serum creatinine 2.29, hemoglobin 12.2 g/dL. ASSESSMENT: 1. Acute kidney injury, acute tubular necrosis, associated with hypotension, hemodynamic instability with atrial fibrillation with rapid ventricular response and from underlying COVID infection. Currently oliguric. Will try another dose of IV Lasix later on today. I will add a bicarb drip and repeat labs in a.m. If patient remains oliguric and has worsening renal function and hyperkalemia, he will likely need renal replacement therapy. No acute indication for dialysis currently. 2. Acute hypoxic respiratory failure secondary to COVID pneumonia, currently on the vent. 3. Atrial fibrillation with rapid ventricular response, maintained on amiodarone. 4. Mild metabolic acidosis. 5. Possible superimposed bacterial pneumonia, maintained on empiric antibiotics. PLAN: Change IV fluids to IV bicarb. Repeat Lasix at 80 mg later on today. Flush Man catheter. Repeat labs in a.m. Will continue to assess on a daily basis for need for renal replacement therapy. No acute indication for dialysis at this time. Thank you for this consultation. Will continue to follow the patient with you during his hospitalization. MMODL / IJN: [id number] /
--- NOTE | 2021-06-18 11:34 | PN ---
PROGRESS NOTE DATE OF SERVICE: 06/17/2021 REASON FOR FOLLOWUP: Pneumonia. INTERVAL HISTORY: The patient remains intubated on the vent. The patient is hemodynamically stable. FiO2 is currently 55%. No temperature has been recorded. No significant purulent secretions through the ET or diarrhea or any other changes reported by the nursing staff. PHYSICAL EXAMINATION: Blood pressure is 116/60 with a pulse of 104, temperature is 98.2. He is 95% on 55% FiO2. General description is an elderly male lying in bed, intubated on the vent, in no respiratory distress. RESPIRATORY SYSTEM: Unlabored breathing. Crackles at the bases. No wheeze. HEART: S1, S2. Regular rate and rhythm. ABDOMEN: Soft. No tenderness. EXTREMITIES: No edema of the feet. LABS: White count of 26,000. Creatinine is 2.29. DIAGNOSTIC IMPRESSION AND PLAN: Patient with acute respiratory failure which is multifactorial in this patient who did have a component of pneumonia. Cultures were positive for bacteria. Patient's sputum on the was positive for pseudomonas. Repeat sputum has been requested. Did have elevated procalcitonin and is covered with cefepime; to continue while monitoring his clinical course closely. Prognosis remains guarded. Continue with supportive care. MMODL / IJN: [id number] /
[2021-06-18 11:41] LABS: Glucose,Whole Blood 157 mg/dL (75-99)
--- NOTE | 2021-06-18 13:34 | P.PN ---
Subjective This is a 75 year old male with a past medical history of atrial fibrillation, former smoker. 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 Cardiology was consulted for atrial fibrillation with RVR. Patient with admitted to the emergency department on 06/02/2021 for hypoxia, shortness of breath, cough, fever, and chills. Patient testing positive for Covid-19 on May 24. He is un-vaccinated. Patient initially presented to [facility] and subsequently was transferred to [facility] for further evaluation. He was initially placed on BiPAP and then was subsequently intubated sedated and on mechanical ventilator. Patient did go into atrial fibrillation with rapid ventricular response. Started on IV amiodarone and Eliquis 5mg BID. Patient seen and examined at bedside in the ICU, he is still intubated on mechanical ventilation. He continues to be in atrial fibrillation with controlled rates HR 60s-80s. He is currently maintained on amiodarone 0.5 mg/min, Eliquis 5mg BID, started on a IV Lasix drip, propofol, Nimbex, fentanyl. Chest x-ray revealed bilateral opacities consolidations, no change from prior. blood pressure 130/63, heart rate 86, afebrile. Laboratory data WBC 16.4, hemoglobin 10.8, platelets 80, d-dimer 17.2, sodium 136, potassium 4.7, BUN 57, serum creatinine 3.6. He has been having decrease urine output. GENERAL: Intubated, Sedated on Mechanical ventilator. Full physical examination not completed due to covid-19 exposure. ASSESSMENT: Acute COVID-19 pneumonia Chronic atrial fibrillation with rapid ventricular response Acute hypoxic respiratory failure secondary to COVID-19 requiring intubation and mechanical ventilation Positive pseudomonas aeruginosa pneumonia based on positive sputum cultures Acute Kidney Injury Lactic acidosis PLAN: -We will continue amiodarone 0.5mg/min -Continue Eliquis -Supportive Care -Prognosis is guarded -Further recommendations based on clinical course Objective - Vital Signs Vital signs: Vital Signs Temp 98.1 F 06/18/21 12:00 Pulse 84 06/18/21 12:00 Resp 36 H 06/18/21 12:00 BP 129/83 06/18/21 05:00 Pulse Ox 96 06/18/21 12:00 Intake & Output 06/17/21 06/18/21 06/18/21 18:59 06:59 18:59 Intake Total 2568.846 2765.546 1190 Output Total 285 260 175 Balance 2283.846 2505.546 1015 Weight 110.6 kg Intake: IV 1800 1900 910 Cefepime 2 gm In Sodium 100 Chloride 0.9% 100 ml @ 25 mls/hr IVPB Q8HR [facility] Rx# :[id number] Furosemide 100 mg In 10 Sodium Chloride 0.9% 90 ml @ 10 MG/HR 10 mls/hr IV .Q10H [facility] Rx#: [id number] Sodium Chloride 0.45% 1, 600 1800 900 000 ml @ 150 mls/hr IV . Q7H20M [facility] with Sodium Bicarb (1 Meq/ml) 100 ml Rx#:[id number] Sodium Chloride 0.9% 1, 1200 000 ml @ 150 mls/hr IV . Q6H40M [facility] Rx#:[id number] Intake, IV Titration 618.846 745.546 100 Amount Amiodarone 450 mg In 250 Dextrose 5% in Water 250 ml @ 0.5 MG/MIN 16.667 mls/hr IV .Q15H [facility] Rx#: [id number] Cisatracurium 200 mg In 158.956 Sodium Chloride 0.9% 180 ml @ 1 MCG/KG/MIN 5.88 mls/hr IV .Q24H [facility] Rx#: [id number] Norepinephrine 8 mg In 259.890 50.57 Sodium Chloride 0.9% 250 ml @ 0.05 MCG/KG/MIN 9. 482 mls/hr IV .Q24H [facility] Rx#:[id number] propofoL 1,000 mg In 200 444.976 100 Empty Bag 1 bag @ Titrate IV .Q0M [facility] Rx#: [id number] Tube Feeding 120 90 150 Other 30 30 30 Output: Urine 285 260 175 Other: Voiding Method Indwelling Catheter Indwelling Catheter Indwelling Catheter ABP, PAP, CO, CI - Last Documented Arterial Blood Pressure 128/63 - Labs CBC & Chem 7: 06/18/21 04:35 06/18/21 04:35 Labs: Abnormal Lab Results - Last 24 Hours (Table) 06/17/21 06/18/21 06/18/21 Range/Units 20:45 04:35 04:35 WBC 16.4 H (3.8-10.6) k/uL RBC 3.64 L (4.30-5.90) m/uL Hgb 10.8 L (13.0-17.5) gm/dL Hct 34.0 L (39.0-53.0) % Plt Count 80 L (150-450) k/uL Neutrophils # 15.8 H (1.3-7.7) k/uL Lymphocytes # 0.3 L (1.0-4.8) k/uL D-Dimer 17.20 H (<0.60) mg/L FEU ABG pH (7.35-7.45) ABG pCO2 (35-45) mmHg ABG pO2 (83-108) mmHg Sodium (137-145) mmol/L Chloride (98-107) mmol/L Carbon Dioxide (22-30) mmol/L BUN (9-20) mg/dL Creatinine (0.66-1.25) mg/dL Glucose (74-99) mg/dL POC Glucose (mg/dL) 165 H (75-99) mg/dL Calcium (8.4-10.2) mg/dL Lactate Dehydrogenase (313-618) U/L 06/18/21 06/18/21 06/18/21 Range/Units 04:35 04:58 11:40 WBC (3.8-10.6) k/uL RBC (4.30-5.90) m/uL Hgb (13.0-17.5) gm/dL Hct (39.0-53.0) % Plt Count (150-450) k/uL Neutrophils # (1.3-7.7) k/uL Lymphocytes # (1.0-4.8) k/uL D-Dimer (<0.60) mg/L FEU ABG pH 7.26 L (7.35-7.45) ABG pCO2 48 H (35-45) mmHg ABG pO2 66 L (83-108) mmHg Sodium 136 L (137-145) mmol/L Chloride 110 H (98-107) mmol/L Carbon Dioxide 21 L (22-30) mmol/L BUN 57 H (9-20) mg/dL Creatinine 3.69 H (0.66-1.25) mg/dL Glucose 146 H (74-99) mg/dL POC Glucose (mg/dL) 157 H (75-99) mg/dL Calcium 7.1 L (8.4-10.2) mg/dL Lactate Dehydrogenase 1304 H (313-618) U/L
--- NOTE | 2021-06-18 14:14 | P.PN ---
Subjective Progress Note Date: 06/18/21 Principal diagnosis: Acute hypoxic respiratory failure secondary to COVID-19 pneumonia. 06/16/2021, the patient is already intubated and on a mechanical ventilator. He was brought up to the intensive care unit yesterday. He was significantly short of breath and he was placed on BiPAP which was kept on for several hours and he was unable to stabilize and at that point we decided to proceed with intubation mechanical ventilation. 2 triple-lumen catheter nausea none was also established. This morning, the patient is on propofol which is running at 50 mL an hour and the patient is also requiring dialysis and he is on the backs running at 1 mcg/kg per minute. He is quite suggestive mechanical ventilator. He is currently on assist control mode at the rate of 36 and a tidal volume of 400 and FiO2 of 75% with a PEEP of 16. Blood gases showed a pH of 7.15 with a pCO2 of 71 and pO2 of 107. The patient's chest x-ray from today is showing diffuse bilateral pulmonary infiltrates consistent with pneumonia related to COVID-19/ARDS. Orotracheal tube is in a good location. Orogastric tube was also and good location. The white cell count is up to 44.2. Note that earlier sputum samples that were collected on this patient from 06/02/2021 was consistent with pseudomonas aeruginosa and Essence. For now, the patient is on IV cefepime at a dose of 2 g every 12 hours. Repeat cultures were sent. Note that the inflammatory markers on this patient indicate a d-dimer of more than 34, LDH level was 2277 from 06/15/2021, CRP level was 4.6. The throat calcitonin level was 0.03. I'm not absolutely sure if the patient is infected. That pseudomonal culture is rather old. Nevertheless he has developed some leukocytosis and based on a previous pseudomonal growth, cover the patient with IV cefepime 2 g every 12 hours. The patient is also on prednisone at a dose of 40 mg by mouth daily. He was also given Baricitinib which she completed. He developed an extensive oropharyngeal candidiasis and the patient is currently on Diflucan. Afebrile. Hemodynamically, the patient is requiring pressors and the patient is currently on 0.15 mcg/kg per minute of norepinephrine infusion. IV fluids as in the form of normal saline at the rate of 50 mL an hour. The patient received a total of 2 L of normal saline bolus yesterday. The patient is currently nothing by mouth and enteral feeding has not been initiated. Patient was reevaluated today on 06/17/2021, patient remains intubated and mechanically ventilated. Vent settings are assist control rate of 36, volume 400 FiO2 60% PEEP of 14. ABG showed a pO2 of 68 pCO2 of 57 pH of 7.16. Hence the ventilator was changed to volume of 430 increased the flow to 70 L/m decreased FiO2 to 55%. Drips include propofol at 50 mcg/kg/m, amiodarone at 0.5 mg/m Nimbex at 1, norepinephrine at 0.2 mcg/kg/m, IV fluid at 1 50 mL per hour. Patient remains sedated, paralyzed, no major change in the last 24 hours. Chest x-ray continues to show bilateral infiltrates, not much of a change. WBC count is 26.1 hemoglobin is 12.2 d-dimer is 27.6. Electrolytes were reviewed bicarb is 19 BUN is 39 creatinine 2.29, this is a dramatic change in his renal profile, hence nephrology was consulted pro calcitonin is 24.4. Sputum is positive for Pseudomonas and Essence. Patient was intubated on 06/15 remains on Solu-Medrol at 60 mg every 6 hours, he was on baricitinib, , and this was discontinued Patient was reevaluated today on 06/17/2021, remains in the ICU, intubated and mechanically ventilated. Vent settings are assist control rate of 36 to volume 430, FiO2 55% PEEP of 14. ABG showed a pO2 of 66 pCO2 of 48 pH of 7.26. CBC is relatively normal WBC of 16.4 hemoglobin is 10.8. D-dimer 17.2. Renal profile is significantly worse today, BUN is 57 creatinine 3.69. LDH is 09/16/2003. Slightly improved compared to yesterday and the day before. Drips include amiodarone at 0.5, propofol at 50 and Nimbex at 1, and I'm adding fentanyl since the patient is on Nimbex at 0.25 mcg/kg/m. Patient was seen by nephrology yesterday, and sodium bicarb was added, Lasix was also added however the patient's renal status has dramatically worsened over the last 24 hours. His labs were reviewed today, pro calcitonin remains high, his d-dimer is down to 17.2, patient is on Eliquis at 5 mg twice a day, is also on cefepime and fluconazole. Patient is oliguric, and not improving with Lasix challenges as ordered by nephrology, hence I believe the patient will eventually require hemodialysis. His urine output is no more than 15 mL/h in spite of diuretics. S x-ray continues to show bilateral interstitial infiltrates consistent with CO VID-19 pneumonia. Objective - Vital Signs Vital signs: Vital Signs Temp 98.1 F 06/18/21 12:00 Pulse 86 06/18/21 13:00 Resp 36 H 06/18/21 13:00 BP 129/83 06/18/21 05:00 Pulse Ox 95 06/18/21 13:00 Intake & Output 06/17/21 06/18/21 06/18/21 18:59 06:59 18:59 Intake Total 2568.846 2765.546 1410 Output Total 285 260 210 Balance 2283.846 2505.546 1200 Weight 110.6 kg Intake: IV 1800 1900 1070 Cefepime 2 gm In Sodium 100 Chloride 0.9% 100 ml @ 25 mls/hr IVPB Q8HR [facility] Rx# :[id number] Furosemide 100 mg In 20 Sodium Chloride 0.9% 90 ml @ 10 MG/HR 10 mls/hr IV .Q10H [facility] Rx#: [id number] Sodium Chloride 0.45% 1, 600 1800 1050 000 ml @ 150 mls/hr IV . Q7H20M [facility] with Sodium Bicarb (1 Meq/ml) 100 ml Rx#:[id number] Sodium Chloride 0.9% 1, 1200 000 ml @ 150 mls/hr IV . Q6H40M [facility] Rx#:[id number] Intake, IV Titration 618.846 745.546 100 Amount Amiodarone 450 mg In 250 Dextrose 5% in Water 250 ml @ 0.5 MG/MIN 16.667 mls/hr IV .Q15H [facility] Rx#: [id number] Cisatracurium 200 mg In 158.956 Sodium Chloride 0.9% 180 ml @ 1 MCG/KG/MIN 5.88 mls/hr IV .Q24H [facility] Rx#: [id number] Norepinephrine 8 mg In 259.890 50.57 Sodium Chloride 0.9% 250 ml @ 0.05 MCG/KG/MIN 9. 482 mls/hr IV .Q24H [facility] Rx#:[id number] propofoL 1,000 mg In 200 444.976 100 Empty Bag 1 bag @ Titrate IV .Q0M [facility] Rx#: [id number] Tube Feeding 120 90 180 Other 30 30 60 Output: Urine 285 260 210 Other: Voiding Method Indwelling Catheter Indwelling Catheter Indwelling Catheter ABP, PAP, CO, CI - Last Documented Arterial Blood Pressure 138/63 - Exam Physical Exam: Revealed a 75-year-old white male intubated, sedated, paralyzed, on mechanical ventilation. Head: Atraumatic, normocephalic. HEENT:[Neck is supple.] [No neck masses.] [No thyromegaly.] [No JVD.] Endotracheal tube and orogastric tube are intact. Chest: Symmetrical chest expansion, good airflow bilaterally, however crackles and rhonchi noted at the bases Cardiac Exam: Distant S1 and S2, no S3 gallop. No murmur. Abdomen: [Obese, Soft, nontender, no megaly, no rebound, no guarding, normal bowel sounds.] Extremities: [No clubbing, 1+ bipedal edema, no cyanosis.] Neurological Exam: Could not be assessed, patient is sedated and paralyzed. Psychiatric: Could not be assessed. Patient is sedated and paralyzed. Skin: No rashes. - Labs CBC & Chem 7: 06/18/21 04:35 06/18/21 04:35 Labs: Abnormal Lab Results - Last 24 Hours (Table) 06/17/21 06/18/21 06/18/21 Range/Units 20:45 04:35 04:35 WBC 16.4 H (3.8-10.6) k/uL RBC 3.64 L (4.30-5.90) m/uL Hgb 10.8 L (13.0-17.5) gm/dL Hct 34.0 L (39.0-53.0) % Plt Count 80 L (150-450) k/uL Neutrophils # 15.8 H (1.3-7.7) k/uL Lymphocytes # 0.3 L (1.0-4.8) k/uL D-Dimer 17.20 H (<0.60) mg/L FEU ABG pH (7.35-7.45) ABG pCO2 (35-45) mmHg ABG pO2 (83-108) mmHg Sodium (137-145) mmol/L Chloride (98-107) mmol/L Carbon Dioxide (22-30) mmol/L BUN (9-20) mg/dL Creatinine (0.66-1.25) mg/dL Glucose (74-99) mg/dL POC Glucose (mg/dL) 165 H (75-99) mg/dL Calcium (8.4-10.2) mg/dL Lactate Dehydrogenase (313-618) U/L 06/18/21 06/18/21 06/18/21 Range/Units 04:35 04:58 11:40 WBC (3.8-10.6) k/uL RBC (4.30-5.90) m/uL Hgb (13.0-17.5) gm/dL Hct (39.0-53.0) % Plt Count (150-450) k/uL Neutrophils # (1.3-7.7) k/uL Lymphocytes # (1.0-4.8) k/uL D-Dimer (<0.60) mg/L FEU ABG pH 7.26 L (7.35-7.45) ABG pCO2 48 H (35-45) mmHg ABG pO2 66 L (83-108) mmHg Sodium 136 L (137-145) mmol/L Chloride 110 H (98-107) mmol/L Carbon Dioxide 21 L (22-30) mmol/L BUN 57 H (9-20) mg/dL Creatinine 3.69 H (0.66-1.25) mg/dL Glucose 146 H (74-99) mg/dL POC Glucose (mg/dL) 157 H (75-99) mg/dL Calcium 7.1 L (8.4-10.2) mg/dL Lactate Dehydrogenase 1304 H (313-618) U/L Assessment and Plan Assessment: Acute hypoxic respiratory failure secondary to COVID-19 pneumonia, patient was intubated on 06/15/2011/03/2020, remains intubated and mechanically ventilated. Acute hypercapnic respiratory failure secondary to COVID-19 pneumonia and ARDS. Secondary to COVID-19 pneumonia Suspect superimposed pseudomonas aeruginosa pneumonia based on positive sputum cultures and elevated procalcitonin. Elevated inflammatory markers secondary to above. Paroxysmal atrial fibrillation Extensive oropharyngeal candidiasis,on Diflucan. Leukocytosis secondary to above. Sepsis and septic shock secondary to infection including COVID-19 pneumonia and suspect pseudomonas aeruginosa pneumonia. Acute kidney injury with acute renal failure secondary to COVID-19 infection, associated with oliguria, nephrology was consulted yesterday, and his renal profile seems to be worsening over the last 48 hours. May eventually require hemodialysis Recommendation: Continue ventilatory support. No changes were made in the vent settings today. Continue present supportive care measures Start enteral tube feeding again today. Continue IV fluids. Continue COVID-19 cocktail. Continue nutritional support, Continue cefepime and Diflucan. Decadron 6 mg IV push daily Continue GI and DVT prophylaxis. Patient is on Eliquis. Condition remains critically ill Critical care time is 30 minutes. Time with Patient: Greater than 30
--- NOTE | 2021-06-18 18:23 | PN ---
PROGRESS NOTE Patient is seen for followup for acute kidney injury. He remains on the vent. Patient was started on bicarb drip yesterday. His urine output remains low with the range of about 10-15 mL an hour. However, this morning patient received a dose of IV Lasix 80 mg and urine output now seems to be about 35-40 mL an hours. FiO2 is at 55%. No hypotension noted. EXAMINATION: This morning, blood pressure was 147/62, heart rate of 86 per minute. Patient is afebrile. The patient is not examined. Case is discussed with nursing staff. LABS: Reviewed. Labs show sodium 136, potassium 4.7, chloride 110, CO2 is 21, BUN 57. Serum creatinine 3.69, hemoglobin 10.8 g/dL. ASSESSMENT: 1. Acute kidney injury, acute tubular necrosis, oliguric initially. Urine output currently slightly improved, but remains on the lower side. I will start Lasix drip at 10 mg an hour. If renal function continues to deteriorate, given the significant increase in creatinine over the last couple of days, the patient will likely need to be started on renal replacement therapy in 24-48 hours. 2. Acute hypoxic respiratory failure associated with Covid pneumonia, currently on the vent. 3. Metabolic acidosis maintained on bicarb drip, which I will continue. 4. Atrial fibrillation with RVR maintained on amiodarone. 5. Superimposed bacterial pneumonia, maintained on empiric antibiotics. PLAN: Continue to monitor daily for need for renal replacement therapy. Start Lasix drip. Continue to avoid nephrotoxic agents. MMODL / IJN: [id number] /
[2021-06-18] MEDS: CISATRACURIUM 200 MG in SODIUM CHLORIDE 0.9% 180 ML IV SCH (20:58)
[2021-06-19 00:26] LABS: Glucose,Whole Blood 140 mg/dL (75-99)
[2021-06-19] MEDS: ARTIFICIAL TEARS-HYPROMELLOSE DROPS 15 ML BTL BOTH EYES SCH ×7 (01:36→23:44)
[2021-06-19] MEDS: SODIUM CHLORIDE 0.45% 1,000 ML with SODIUM BICARB (1 MEQ/ML) 100 ML IV SCH ×6 (02:02→11:04)
[2021-06-19] MEDS: FUROSEMIDE 100 MG in SODIUM CHLORIDE 0.9% 90 ML IV SCH ×3 (03:33→20:37)
[2021-06-19 03:54] LABS: Basophils % (A) 0 %; Eosinophils # (A) 0.1 k/uL (0-0.7); Eosinophils % (A) 0 %; HCT 33.7 % (39.0-53.0); HGB 10.4 gm/dL (13.0-17.5); Hypochromasia Slight; Lymphocytes # (A) 0.4 k/uL (1.0-4.8); Lymphocytes % (A) 2 %; MCH 28.8 pg (25.0-35.0); MCHC 30.8 g/dL (31.0-37.0); MCV 93.5 fL (80.0-100.0); Mean Platelet Volume 9.3; Monocytes # (A) 0.2 k/uL (0-1.0); Monocytes % (A) 2 %; Neutrophils # (A) 15.3 k/uL (1.3-7.7); Neutrophils % (A) 96 %
[2021-06-19 03:57] LABS: Platelet Count 71 k/uL (150-450)
[2021-06-19 04:15] LABS: Calcium 7.2 mg/dL (8.4-10.2); Potassium 4.4 mmol/L (3.5-5.1)
--- NOTE | 2021-06-19 04:18 | P.PN ---
Subjective Progress Note Date: 06/18/21 This is a 75-year-old male who was recently admitted with COVID-19 infection with acute hypoxic respiratory failure and is being closely monitored. Pulmonary following closely and patient is maintained on dexamethasone along with Lovenox and vitamin and zinc supplements. Patient currently maintained on 15 L high flow via nasal cannula with supplemental use of 15 L nonrebreather. Patient states his breathing is slightly improved and not requiring a nonrebreather as often. Instructed the patient to use incentive spirometer and increase activity as tolerated. Patient continues to be extremely weak and will have PT/OT evaluate the patient once more stable. 06/06/2021 Patient is seen in follow-up this morning states his shortness of breath has slightly worsened and his recovery time and working to breathe has become more difficult. Patient is continued on 15 L high flow along with nonrebreather intermittently and having to use it more frequently today he states. Incentive spirometer at the bedside and instructed the patient to continue to use at least 10 times every hour while awake and encouraged increased activity as tolerated. Patient states he walked to the bathroom with assistance and became extremely dyspneic. Patient is afebrile. D-dimer is 4.72 with a WBC of 16 and hemoglobin is stable at 15.4. Sodium is 138 with a potassium of 4.5 and current creatinine is 0.63. LDH is elevated at 2492 and CRP is 6.5. Chest x-ray today shows findings consistent with COVID-19 pneumonia with bilateral interstitial and airspace disease present. 06/07/2021 Patient is seen and evaluated in follow up this morning and is having increasing shortness of breath and on 15L high flow via NC and 15 L non-rebreather. Patient has been back in bed and attempting position changes frequently along with prone position. Patient continues on lovenox, baracitinib, vitamin and zinc supplement s,and steroids. Pulmonary following closely. 06/10/2021 Patient is seen in follow up this morning and is now maintained on airvo at 60% and continues to be extremely dyspneic with minimal exertion. Patient also continues with 15L Non rebreather as needed. Patient is maintained on lovenox along with baricitinib and IV steroids with pulmonary following. Patient states he has no reserve and taking longer periods of time to recover with attempting to position change or use the urinal. 06/11/2021 Patient is seen in follow-up and evaluated this morning and is continued on Airvo and maintaining oxygen saturations in the low 90s. Pulmonary following closely. Patient is afebrile. Patient is continued on vitamin and zinc supplements along with Baricitinib and subcutaneous Lovenox along with IV steroids and will continue. Patient's d-dimer today is elevated at 18.25 and will increase Lovenox to 50 subcu twice daily. White blood count today is 18.6 and hemoglobin is stable at 13.7, sodium is 139 with a potassium of 4.3 current creatinine is 0.7. Inflammatory markers are elevated with some trending down and CRP is 1.5, LDH is 1968 and alk phos is 168. Patient is afebrile. Patient continues to be extremely anxious and will continue Xanax as needed. Encouraged increase activity as tolerated and continued position changes with incentive spirometer use. 06/12/2021 Patient is seen in follow-up this morning with no acute issues noted overnight. Patient continues on Airvo with a flow rate of 55 and FiO2 of 80% maintaining oxygen saturations above 90%. Pulmonary following closely and we'll continue to wean as tolerated. Patient continues on Lovenox twice daily along with vitamin and zinc supplements and continued on IV steroids along with albuterol and Baricitinib. White blood count is 23.7 with a hemoglobin of 14.1, sodium is 139 with a potassium of 4.4 and current creatinine is 0.62. Will repeat chest x-ray along with inflammatory markers in the morning. 06/13/2021 Patient is seen and evaluated in follow-up as morning and continues to be on Airvo. Patient appears to be more raspy with some sputum and congested today with a hoarse voice. Infectious disease and pulmonary following closely. Sputum culture from 06/02 just today preliminary showing gram-negative bacilli along with Essence albicans and patient is being started on IV cefepime with repeat sputum culture ordered along with oral Diflucan. White blood count is 23.5 with hemoglobin of 13.8, sodium is 137 and potassium is 5.5 and current creatinine is 0.55. LFTs are mildly elevated. Repeat d-dimer along with CRP and LDH have been ordered. Will repeat a.m. labs. Chest x-ray today shows con tinued peripheral and lower lung interstitial infiltrates of Covid pneumonia without significant change. 06/14/2021 Patient is seen and evaluated in follow-up this morning continues to be dyspneic and requesting to go to the bed as he has been sitting up in the chair all day. Patient has been started on Diflucan along with IV cefepime and sputum culture from 06/02/2021 resulted showing Pseudomonas aeruginosa along with Essence albicans. Infectious disease is following closely. Patient is completing Baricitinib and will be transitioned to oral prednisone taper with pulmonary following closely. Patient has been started on eliquis. D-dimer today has trended down to 11.02, LDH is 2178, CRP is 3.2, liver functions trending down. White blood count slightly trending down at 20.2 and hemoglobin is stable at 13.7, sodium is 136 with a potassium of 4.3 and current creatinine is 0.57. Continues to have a mildly raspy voice with some throat dryness and will add Cepacol. 06/15/2021 Patient evaluated in bed and is resting on the BiPAP in the intensive care unit, he had desaturated this morning will be moved to the bathroom and initially was on a 15L HF, however is now requiring BiPAP. Patient was started on a Precedex drip. Repeat chest x-ray today which revealed persistent multifocal and confluent bilateral reticulonodular opacities is consistent with known coronary infection more prominent in the lower lungs. Patient finished a course of therapy with Baricitinib and transitioned to oral prednisone. Labs reviewed today include a white blood cell count 21.2, hemoglobin of 12.5. Blood gases show a pO2 of 32 and O2 saturation of 50.3. Chloride is 110, CO2 20, sodium 137, potassium 4. LDH is worse today at 2277, alk phos 158, CRP is trending upwards of 4.6. Patient has remained afebrile, heart rate is now 83, respirations 32, blood pressure 124/68. Oxygen saturation is maintaining in the mid to high 80s on 100% BiPAP. Patient is nothing by mouth and oral medications are unable to be given. Patient is on IV cefepime for a sputum culture positive for Pseudomonas. He is IV Diflucan for oral candidiasis that was improving as of yesterday. 06/16/2021 Patient is evaluated in the intensive care unit, he is status post intubation and has NG tube in place. Labs reviewed today included white blood cell, 44.2, d-dimer greater than 34. ABGs from the A-line included a pH of 7.15, pCO2 of 71, total CO2 is 27 and oxygen saturation of 98. Bicarb is 25 and his pO2 is 107. Additional labs include a serum potassium 5.1, chloride of 109, BUN of 27, creatinine 1.06. Vital signs include a heart rate of 123 tachycardia, respiratory rate of 36, blood pressure 100/50, he is 98% oxygen saturation. Patient is on vasopressors for his blood pressure. Repeat blood cultures are negative. Patient is receiving propofol for sedation. His chest x-ray was reviewed which is showing bilateral pulmonary infiltrates demonstrating COVID- 19 pneumonia with ARDS. Patient is still getting IV cefepime for a sputum culture Pseudomonas although his pro calcitonin level is 0.03 which is not usually indicative of a bacterial infection. Additional inflammatory markers remain elevated. Patient did receive 2 L saline bolus. Repeat labs in the morning, prognosis is guarded for this patient. 06/17/2021 Patient is seen in follow-up continues to be monitored closely in the ICU with multiple medical consultations following. Prognosis is extremely guarded. Patient's respiratory status significantly worsened requiring mechanical ventilation and intubation and currently patient is sedated. White blood count is worsened at 26.1 and hemoglobin is 12.2, d-dimer is 27.06, ABG is 7.16 pH with a pCO2 of 57 and a pO2 of 68 and bicarb is 20, sodium is 140 with a potassium of 5.0 and current creatinine has worsened at 2.29 pro calcitonin is 24.40. Infectious disease along with pulmonary real estate rep following closely. Patient continues on cefepime along with eliquis, vitamin and zinc supplements and patient has finished Baricitinib. Patient was on oral Decadron and is being transitioned back to IV dexamethasone along with Diflucan. Patient was given a dose of IV Lasix and nephrology has been consulted. Cardiology consulted as well and patient is currently on amiodarone drip along with Cleviprex and currently sedated on propofol. Patient also has norepinephrine drip as well. Patient being started on sodium bicarb drip. Patient also has low-grade fevers. 06/18/2021 Patient is seen in follow up in the ICU and maintained on mechanical vent intubated and sedated. Patient continues on NImbex, sodium bicarb, amiodarone, and being started on fentanyl as IV lasix drip with multiple medical consultations following. Kidney functions continue to deteriorate with nephrology following closely. Discussion being had about possible hemodialysis if kidney functions continue to worsen. Creatinine currently 3.69 today. Review of systems: Unable to complete a full review of symptoms as patient is sedated and on a ventilator. Active Medications Acetaminophen (Acetaminophen Tab 325 Mg Tab) 650 mg PO Q6HR PRN PRN Reason: Fever and/ or Mild Pain Last Admin: 06/14/21 22:22 Dose: 650 mg Documented by: Albuterol Sulfate (Albuterol Hfa Inhaler) 2 puff INHALATION RT-QID [facility] Last Admin: 06/18/21 20:21 Dose: 2 puff Documented by: Albuterol Sulfate (Albuterol Hfa Inhaler) 2 puff INHALATION RT-QID PRN PRN Reason: Shortness Of Breath Or Wheezing Last Admin: 06/15/21 03:30 Dose: 2 puff Documented by: Apixaban (Apixaban 5 Mg Tab) 5 mg PO BID [facility]; Protocol Last Admin: 06/18/21 20:56 Dose: 5 mg Documented by: Artificial Tears (Artificial Tears-Hypromellose Drops 15 Ml Btl) 2 drops BOTH EYES Q4HR [facility] Last Admin: 06/19/21 01:36 Dose: 2 drops Documented by: Ascorbic Acid (Ascorbic Acid 500 Mg Tab) 500 mg PO DAILY [facility] Last Admin: 06/18/21 07:43 Dose: 500 mg Documented by: Aspirin (Aspirin 81 Mg) 81 mg PO DAILY [facility] Last Admin: 06/18/21 07:43 Dose: 81 mg Documented by: Benzocaine/Menthol (Benzocaine/Menthol Lozeng 1 Each Lozenge) 1 each MUCOUS MEM Q4HR PRN PRN Reason: Sore Throat Chlorhexidine Gluconate (Chlorhexidine Gluconate 15 Ml Cup) 15 ml MUCOUS MEM BID [facility] Last Admin: 06/18/21 20:56 Dose: 15 ml Documented by: Cholecalciferol (Cholecalciferol 25 Mcg (1000 Iu) Tablet) 25 mcg PO DAILY [facility] Last Admin: 06/18/21 07:43 Dose: 25 mcg Documented by: Cyanocobalamin (Cyanocobalamin 500 Mcg Tab) 1,000 mcg PO DAILY [facility] Last Admin: 06/18/21 07:43 Dose: 1,000 mcg Documented by: Dexamethasone Sodium Phosphate (Dexamethasone Sod Phosphate 10 Mg/Ml 1 Ml Vial) 6 mg IV DAILY [facility] Last Admin: 06/18/21 07:44 Dose: 6 mg Documented by: Fluconazole (Fluconazole 100 Mg Tab) 100 mg PO DAILY [facility] Last Admin: 06/18/21 07:56 Dose: 100 mg Documented by: Propofol 1,000 mg/ IV Solution 100 mls @ 0 mls/hr IV .Q0M [facility]; Protocol Last Admin: 06/19/21 01:37 Dose: 50 mcg/kg/min, 33.18 mls/hr Documented by: Norepinephrine Bitartrate 8 mg (/ Sodium Chloride) 258 mls @ 9.482 mls/hr IV .Q24H [facility]; Protocol Last Titration: 06/18/21 00:38 Dose: 0 mcg/kg/min, 0 mls/hr Documented by: Cisatracurium Besylate 200 mg/ (Sodium Chloride) 200 mls @ 5.88 mls/hr IV .Q24H [facility]; Protocol Last Admin: 06/18/21 20:58 Dose: 1.5 mcg/kg/min, 8.82 mls/hr Documented by: Cefepime HCl 1 gm/ Sodium (Chloride) 50 mls @ 12.5 mls/hr IVPB Q12HR [facility] Last Admin: 06/18/21 20:56 Dose: 12.5 mls/hr Documented by: Sodium Bicarbonate 100 ml/ (Sodium Chloride) 1,100 mls @ 150 mls/hr IV .Q7H20M [facility] Last Admin: 06/19/21 03:50 Dose: Not Given Documented by: Fentanyl Citrate 1,000 mcg/ (Sodium Chloride) 100 mls @ 2.765 mls/hr IV .Q24H [facility]; Protocol Last Admin: 06/18/21 10:24 Dose: 0.25 mcg/kg/hr, 2.765 mls/hr Documented by: Furosemide 100 mg/ Sodium (Chloride) 100 mls @ 10 mls/hr IV .Q10H [facility] Last Admin: 06/19/21 03:33 Dose: 10 mg/hr, 10 mls/hr Documented by: Amiodarone HCl 450 mg/ (Dextrose/Water) 250 mls @ 16.667 mls/hr IV .Q15H [facility]; Protocol Stop: 06/19/21 05:14 Last Admin: 06/18/21 12:03 Dose: 0.5 mg/min, 16.667 mls/hr Documented by: Pantoprazole Sodium (Pantoprazole 40 Mg/10 Ml Vial) 40 mg IVP BID [facility] Last Admin: 06/18/21 20:55 Dose: 40 mg Documented by: Senna (Sennosides 8.6 Mg Tab) 8.6 mg PO BID [facility] Last Admin: 06/18/21 20:56 Dose: 8.6 mg Documented by: Zinc Sulfate (Zinc Sulfate 220 Mg Cap) 220 mg PO DAILY [facility] Last Admin: 06/18/21 07:43 Dose: 220 mg Documented by: Physical exam: Gen: This is a 75-year-old male sedated and intubated on propofol and mechanical ventilation HEENT: Head is atraumatic, normocephalic. Pupils equal, round. Sclerae is anicteric. NECK: Supple. No JVD. No lymphadenopathy. No thyromegaly. LUNGS: Diminished breath sounds bilaterally with scattered coarse rhonchi noted. No intercostal retractions. HEART: Irregular, tachycardic ABDOMEN: Soft. Bowel sounds are present. No masses. No guarding or rigidity not ed. EXTREMITIES: No pedal edema. No calf tenderness. NEUROLOGICAL: Patient is intubated and sedated Assessment: Acute COVID-19 infection with acute component of interstitial pneumonia, bilateral with acute hypoxic respiratory failure and possible sepsis secondary to COVID-19 Status post mechanical ventilation and intubation secondary to above, patient was on BiPAP and continued to deteriorate leading to intubation and currently sedated on propofol. acute renal failure likely ATN with worsening kidney functions and minimal urine output and given IV lasix and started on lasix drip and possible need for hemodialysis with nephrology following closely metabolic acidosis and placed on bicarb drip afib with RVR currently rate controlled and on amiodarone drip, cardiology following Lactic acidosis secondary to above Initial sputum culture showing Essence albicans and pseudomonas aeruginosa and maintained on IV cefepime and repeat sputum culture pending, infectious disease following closely Oral candidiasis started on Diflucan, sputum cultures from 06/02/2021 Essence albicans Extensive interstitial bilateral COVID-19 pneumonia Elevated white blood count possibly secondary to above Possible subsegmental pulmonary embolism ruled out History of atrial fibrillation Anxiety Remote history of nicotine dependence GI prophylaxis: Protonix DVT prophylaxis: On eliquis Full code Plan: Recommend to continue with current medications and continue with inhalers, IV dexamethasone, and vitamin supplements. Patient has completed baricitinib. Patient currently on eliquis 5 mg twice a day. Patient respiratory status continued to deteriorate rapidly with no improvement on 100% BiPAP and ultima tely intubated and is being closely monitored in the ICU. Patient on multiple drips including amiodarone, nimbex, fentanyl IV cefepime, propofol, and IV lasix, and sodium bicarb. Discussed with Mariajose about CODE STATUS and overall prognosis and wishes to remain full code. Prognosis is extremely guarded and will continue to monitor closely. Repeat labs and cxr in the am. Objective - Vital Signs Vital signs: Vital Signs Temp 97.8 F 06/18/21 08:00 Pulse 87 06/18/21 08:00 Resp 36 H 06/18/21 08:00 BP 129/83 06/18/21 05:00 Pulse Ox 95 06/18/21 08:00 Intake & Output 06/17/21 06/18/21 06/18/21 18:59 06:59 18:59 Intake Total 2568.846 2765.546 360 Output Total 285 260 40 Balance 2283.846 2505.546 320 Weight 110.6 kg Intake: IV 1800 1900 300 Cefepime 2 gm In Sodium 100 Chloride 0.9% 100 ml @ 25 mls/hr IVPB Q8HR [facility] Rx# :[id number] Sodium Chloride 0.45% 1, 600 1800 300 000 ml @ 150 mls/hr IV . Q7H20M [facility] with Sodium Bicarb (1 Meq/ml) 100 ml Rx#:[id number] Sodium Chloride 0.9% 1, 1200 000 ml @ 150 mls/hr IV . Q6H40M [facility] Rx#:[id number] Intake, IV Titration 618.846 745.546 Amount Amiodarone 450 mg In 250 Dextrose 5% in Water 250 ml @ 0.5 MG/MIN 16.667 mls/hr IV .Q15H [facility] Rx#: [id number] Cisatracurium 200 mg In 158.956 Sodium Chloride 0.9% 180 ml @ 1 MCG/KG/MIN 5.88 mls/hr IV .Q24H [facility] Rx#: [id number] Norepinephrine 8 mg In 259.890 50.57 Sodium Chloride 0.9% 250 ml @ 0.05 MCG/KG/MIN 9. 482 mls/hr IV .Q24H [facility] Rx#:[id number] propofoL 1,000 mg In 200 444.976 Empty Bag 1 bag @ Titrate IV .Q0M [facility] Rx#: [id number] Tube Feeding 120 90 30 Other 30 30 30 Output: Urine 285 260 40 Other: Voiding Method Indwelling Catheter Indwelling Catheter ABP, PAP, CO, CI - Last Documented Arterial Blood Pressure 119/59 - Labs CBC & Chem 7: 06/18/21 04:35 06/18/21 04:35 Labs: Abnormal Lab Results - Last 24 Hours (Table) 06/17/21 06/17/21 06/17/21 Range/Units 05:22 05:22 20:45 WBC (3.8-10.6) k/uL RBC (4.30-5.90) m/uL Hgb (13.0-17.5) gm/dL Hct (39.0-53.0) % Plt Count (150-450) k/uL Neutrophils # (1.3-7.7) k/uL Neutrophils # (Manual) 25.06 H (1.3-7.7) k/uL Lymphocytes # (1.0-4.8) k/uL Lymphocytes # (Manual) 0.26 L (1.0-4.8) k/uL D-Dimer (<0.60) mg/L FEU ABG pH (7.35-7.45) ABG pCO2 (35-45) mmHg ABG pO2 (83-108) mmHg Sodium (137-145) mmol/L Chloride (98-107) mmol/L Carbon Dioxide (22-30) mmol/L BUN (9-20) mg/dL Creatinine (0.66-1.25) mg/dL Glucose (74-99) mg/dL POC Glucose (mg/dL) 165 H (75-99) mg/dL Calcium (8.4-10.2) mg/dL Lactate Dehydrogenase (313-618) U/L Procalcitonin 24.40 H (0.02-0.09) ng/mL 06/18/21 06/18/21 06/18/21 Range/Units 04:35 04:35 04:35 WBC 16.4 H (3.8-10.6) k/uL RBC 3.64 L (4.30-5.90) m/uL Hgb 10.8 L (13.0-17.5) gm/dL Hct 34.0 L (39.0-53.0) % Plt Count 80 L (150-450) k/uL Neutrophils # 15.8 H (1.3-7.7) k/uL Neutrophils # (Manual) (1.3-7.7) k/uL Lymphocytes # 0.3 L (1.0-4.8) k/uL Lymphocytes # (Manual) (1.0-4.8) k/uL D-Dimer 17.20 H (<0.60) mg/L FEU ABG pH (7.35-7.45) ABG pCO2 (35-45) mmHg ABG pO2 (83-108) mmHg Sodium 136 L (137-145) mmol/L Chloride 110 H (98-107) mmol/L Carbon Dioxide 21 L (22-30) mmol/L BUN 57 H (9-20) mg/dL Creatinine 3.69 H (0.66-1.25) mg/dL Glucose 146 H (74-99) mg/dL POC Glucose (mg/dL) (75-99) mg/dL Calcium 7.1 L (8.4-10.2) mg/dL Lactate Dehydrogenase 1304 H (313-618) U/L Procalcitonin (0.02-0.09) ng/mL 06/18/21 Range/Units 04:58 WBC (3.8-10.6) k/uL RBC (4.30-5.90) m/uL Hgb (13.0-17.5) gm/dL Hct (39.0-53.0) % Plt Count (150-450) k/uL Neutrophils # (1.3-7.7) k/uL Neutrophils # (Manual) (1.3-7.7) k/uL Lymphocytes # (1.0-4.8) k/uL Lymphocytes # (Manual) (1.0-4.8) k/uL D-Dimer (<0.60) mg/L FEU ABG pH 7.26 L (7.35-7.45) ABG pCO2 48 H (35-45) mmHg ABG pO2 66 L (83-108) mmHg Sodium (137-145) mmol/L Chloride (98-107) mmol/L Carbon Dioxide (22-30) mmol/L BUN (9-20) mg/dL Creatinine (0.66-1.25) mg/dL Glucose (74-99) mg/dL POC Glucose (mg/dL) (75-99) mg/dL Calcium (8.4-10.2) mg/dL Lactate Dehydrogenase (313-618) U/L Procalcitonin (0.02-0.09) ng/mL
[2021-06-19 04:56] LABS: ABG Base Excess -3.6 mmol/L; ABG HCO3 23 mmol/L (21-25); ABG Oxygen Saturation 91.5 % (94-97); ABG PCO2 51 mmHg (35-45); ABG PH 7.27 (7.35-7.45); ABG PO2 60 mmHg (83-108); ABG TCO2 25 mmol/L (19-24)
--- NOTE | 2021-06-19 05:32 | PN ---
PROGRESS NOTE DATE OF SERVICE: 06/18/2021 REASON FOR FOLLOW UP: Pneumonia. INTERVAL COURSE: History the patient is afebrile. The patient is hemodynamically stable. The patient remains to be intubated on the vent. No significant purulent secretions thru the ET or any other changes reported by the nursing staff. EXAMINATION: Blood pressure 114/66, pulse of 67, temperature 96.9. He is 94% on 55% FIO2. General description is an elderly male intubated on the vent. Respiratory system: Unlabored breathing, diminished breath sounds in the base. No wheeze. Heart S1, S2. Regular rate and rhythm. Abdomen soft, no tenderness. LABORATORY DATA: Hemoglobin 10.1, white count 16.4. Creatinine is up to 3.69. DIAGNOSTIC IMPRESSION AND PLAN: Patient with acute respiratory failure which is multifactorial in this patient who did have Covid-19 pneumonia with concern for secondary bacterial pneumonia. Did have elevated procalcitonin. Sputum cultures will be repeated. Continue with cefepime. Monitor clinical course closely. Continue supportive care. CINDAL / PREMAN: [id number] /
[2021-06-19 05:59] LABS: Allen Test Performed? no
[2021-06-19] MEDS: ALBUTEROL HFA INHALER INHALATION SCH ×4 (08:34→19:37)
--- NOTE | 2021-06-19 08:43 | XR ---
EXAMINATION TYPE: XR chest 1V portable DATE OF EXAM: 06/19/2021 COMPARISON: 06/18/2021 INDICATION: Tube placement TECHNIQUE: Single frontal view of the chest is obtained. FINDINGS: The heart size is normal. The pulmonary vasculature is normal. Diffuse scattered infiltrates are present bilaterally. This is slightly greater at the lung bases. Left central venous catheter tip is in the superior vena cava region. Endotracheal tube tip is above the evette. Nasogastric tube transverses the thorax. IMPRESSION: 1. Few scattered lung infiltrates appear stable. 2. Lines and catheters discussed above
[2021-06-19] MEDS: ASPIRIN 81 MG PO SCH ×2 (09:05→09:39)
[2021-06-19] MEDS: CHOLECALCIFEROL 25 MCG (1000 IU) TABLET PO SCH (09:05)
[2021-06-19] MEDS: ZINC SULFATE 220 MG CAP PO SCH (09:05)
[2021-06-19] MEDS: APIXABAN 5 MG TAB PO SCH ×2 (09:05→20:02)
[2021-06-19] MEDS: CYANOCOBALAMIN 500 MCG TAB PO SCH (09:05)
[2021-06-19] MEDS: DEXAMETHASONE SOD PHOSPHATE 10 MG/ML 1 ML VIAL IV SCH (09:05)
[2021-06-19] MEDS: SENNOSIDES 8.6 MG TAB PO SCH ×2 (09:05→20:36)
[2021-06-19] MEDS: ASCORBIC ACID 500 MG TAB PO SCH (09:05)
[2021-06-19] MEDS: CEFEPIME 1 GM in SODIUM CHLORIDE 0.9% 50 ML IVPB SCH ×2 (09:06→20:36)
[2021-06-19] MEDS: PANTOPRAZOLE 40 MG/10 ML VIAL IVP SCH ×2 (09:06→20:36)
[2021-06-19] MEDS: CHLORHEXIDINE GLUCONATE 15 ML CUP MUCOUS MEM SCH ×2 (09:06→20:36)
[2021-06-19] MEDS: FLUCONAZOLE 100 MG TAB PO SCH (09:13)
[2021-06-19] MEDS: AMIODARONE 450 MG in DEXTROSE 5% IN WATER 250 ML IV SCH ×2 (11:04)
[2021-06-19] MEDS: AMIODARONE 200 MG TAB PO SCH ×2 (11:19→20:36)
[2021-06-19] MEDS: fentaNYL (PF). 1,000 MCG in SODIUM CHLORIDE 0.9% 80 ML IV SCH (11:29)
--- NOTE | 2021-06-19 11:30 | P.PN ---
Subjective This is a 75 year old male with a past medical history of atrial fibrillation, former smoker. 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 Cardiology was consulted for atrial fibrillation with RVR. Patient with admitted to the emergency department on 06/02/2021 for hypoxia, shortness of breath, cough, fever, and chills. Patient testing positive for Covid-19 on May 24. He is un-vaccinated. Patient initially presented to [facility] and subsequently was transferred to [facility] for further evaluation. He was initially placed on BiPAP and then was subsequently intubated sedated and on mechanical ventilator. Patient did go into atrial fibrillation with rapid ventricular response. Started on IV amiodarone and Eliquis 5mg BID. Patient seen and examined at bedside in the ICU, he is still intubated on mechanical ventilation. He continues to be in atrial fibrillation with controlled rates HR 60s-80s. He is currently maintained on amiodarone 0.5 mg/min, Eliquis 5mg BID, IV Lasix drip 10mg/hr, propofol, Nimbex, fentanyl. Blood pressure 124/69 HR 71, afebrile. Laboratory data WBC 16.0, hemoglobin 10.4, platelets 71, d-dimer 10.47, sodium 135, potassium 4.4, BUN 75, serum creatinine 4.63. GENERAL: Intubated, Sedated on Mechanical ventilator. Full physical examination not completed due to covid-19 exposure. ASSESSMENT: Acute COVID-19 pneumonia Chronic atrial fibrillation with rapid ventricular response, now rate controlled Acute hypoxic respiratory failure secondary to COVID-19 requiring intubation and mechanical ventilation Positive pseudomonas aeruginosa pneumonia based on positive sputum cultures Acute Kidney Injury Lactic acidosis PLAN: -Discontinue amiodarone IV, start amiodarone 200mg BID -Continue Eliquis -Supportive Care -Prognosis is guarded -Further recommendations based on clinical course Objective - Vital Signs Vital signs: Vital Signs Temp 97.2 F L 06/19/21 08:00 Pulse 71 06/19/21 11:00 Resp 36 H 06/19/21 11:00 BP 116/74 06/19/21 05:00 Pulse Ox 94 L 06/19/21 11:00 Intake & Output 06/18/21 06/19/21 06/19/21 18:59 06:59 18:59 Intake Total 2801.886 2967.1 1052.370 Output Total 350 320 145 Balance 2451.886 2647.1 907.370 Weight 119 kg 119 kg Intake: IV 1879 1956 502 Furosemide 100 mg In 70 120 40 Sodium Chloride 0.9% 90 ml @ 10 MG/HR 10 mls/hr IV .Q10H [facility] Rx#: [id number] Pressure bag 9 36 12 Sodium Chloride 0.45% 1, 1800 1800 450 000 ml @ 150 mls/hr IV . Q7H20M ALVARO with Sodium Bicarb (1 Meq/ml) 100 ml Rx#:[id number] Intake, IV Titration 502.886 591.1 400.370 Amount Amiodarone 450 mg In 250 Dextrose 5% in Water 250 ml @ 0.5 MG/MIN 16.667 mls/hr IV .Q15H [facility] Rx#: [id number] Amiodarone 450 mg In 250 Dextrose 5% in Water 250 ml @ 0.5 MG/MIN 16.667 mls/hr IV .Q15H [facility] Rx#: [id number] Cisatracurium 200 mg In 135.338 44.1 Sodium Chloride 0.9% 180 ml @ 1 MCG/KG/MIN 5.88 mls/hr IV .Q24H [facility] Rx#: [id number] Furosemide 100 mg In 69.667 97 Sodium Chloride 0.9% 90 ml @ 10 MG/HR 10 mls/hr IV .Q10H [facility] Rx#: [id number] fentaNYL (PF). 1,000 mcg 60.231 In Sodium Chloride 0.9% 80 ml @ 0.25 MCG/KG/HR 2. 765 mls/hr IV .Q24H [facility] Rx#:[id number] propofoL 1,000 mg In 297.881 200 90.139 Empty Bag 1 bag @ Titrate IV .Q0M [facility] Rx#: [id number] Tube Feeding 330 360 120 Other 90 60 30 Output: Urine 350 320 145 Other: Voiding Method Indwelling Catheter Indwelling Catheter Indwelling Catheter # Voids 2 # Bowel Movements 1 ABP, PAP, CO, CI - Last Documented Arterial Blood Pressure 124/69 - Labs CBC & Chem 7: 06/19/21 03:25 06/19/21 03:25 Labs: Abnormal Lab Results - Last 24 Hours (Table) 06/18/21 06/18/21 06/18/21 Range/Units 04:35 04:35 11:40 WBC (3.8-10.6) k/uL RBC (4.30-5.90) m/uL Hgb (13.0-17.5) gm/dL Hct (39.0-53.0) % MCHC (31.0-37.0) g/dL Plt Count (150-450) k/uL Neutrophils # (1.3-7.7) k/uL Lymphocytes # (1.0-4.8) k/uL D-Dimer (<0.60) mg/L FEU ABG pH (7.35-7.45) ABG pCO2 (35-45) mmHg ABG pO2 (83-108) mmHg ABG Total CO2 (19-24) mmol/L ABG O2 Saturation (94-97) % Sodium (137-145) mmol/L BUN (9-20) mg/dL Creatinine (0.66-1.25) mg/dL Glucose (74-99) mg/dL POC Glucose (mg/dL) 157 H (75-99) mg/dL Calcium (8.4-10.2) mg/dL Ferritin 886.0 H (22.0-322.0) ng/mL Lactate Dehydrogenase (313-618) U/L Procalcitonin 20.80 H (0.02-0.09) ng/mL 06/19/21 06/19/21 06/19/21 Range/Units 00:25 03:25 03:25 WBC 16.0 H (3.8-10.6) k/uL RBC 3.60 L (4.30-5.90) m/uL Hgb 10.4 L (13.0-17.5) gm/dL Hct 33.7 L (39.0-53.0) % MCHC 30.8 L (31.0-37.0) g/dL Plt Count 71 L (150-450) k/uL Neutrophils # 15.3 H (1.3-7.7) k/uL Lymphocytes # 0.4 L (1.0-4.8) k/uL D-Dimer 10.47 H (<0.60) mg/L FEU ABG pH (7.35-7.45) ABG pCO2 (35-45) mmHg ABG pO2 (83-108) mmHg ABG Total CO2 (19-24) mmol/L ABG O2 Saturation (94-97) % Sodium (137-145) mmol/L BUN (9-20) mg/dL Creatinine (0.66-1.25) mg/dL Glucose (74-99) mg/dL POC Glucose (mg/dL) 140 H (75-99) mg/dL Calcium (8.4-10.2) mg/dL Ferritin (22.0-322.0) ng/mL Lactate Dehydrogenase (313-618) U/L Procalcitonin (0.02-0.09) ng/mL 06/19/21 06/19/21 Range/Units 03:25 04:55 WBC (3.8-10.6) k/uL RBC (4.30-5.90) m/uL Hgb (13.0-17.5) gm/dL Hct (39.0-53.0) % MCHC (31.0-37.0) g/dL Plt Count (150-450) k/uL Neutrophils # (1.3-7.7) k/uL Lymphocytes # (1.0-4.8) k/uL D-Dimer (<0.60) mg/L FEU ABG pH 7.27 L (7.35-7.45) ABG pCO2 51 H (35-45) mmHg ABG pO2 60 L (83-108) mmHg ABG Total CO2 25 H (19-24) mmol/L ABG O2 Saturation 91.5 L (94-97) % Sodium 135 L (137-145) mmol/L BUN 75 H (9-20) mg/dL Creatinine 4.63 H (0.66-1.25) mg/dL Glucose 151 H (74-99) mg/dL POC Glucose (mg/dL) (75-99) mg/dL Calcium 7.2 L (8.4-10.2) mg/dL Ferritin (22.0-322.0) ng/mL Lactate Dehydrogenase 1095 H (313-618) U/L Procalcitonin (0.02-0.09) ng/mL
--- NOTE | 2021-06-19 11:30 | P.PN ---
Subjective Progress Note Date: 06/19/21 Principal diagnosis: COVID-19 pneumonia The patient is seen today 06/19/2021 in follow-up in the intensive care unit. He remains intubated and on the mechanical ventilator. Current settings are assist-control rate of 36, tidal volume 430, FiO2 50% and a PEEP of 14. Morning blood gases revealed a pO2 of 60, pCO2 of 51, pH 7.27. He remains sedated on propofol at 50 mcg/kg/m, paralyzed with Nimbex at 1.5 mcg/kg/m. He is on fentanyl at 0.5 mcg/kg/hr. Amiodarone drip at 0.5 mg/m. Lasix drip at 10 mg per hour. D5W with 3 A of sodium bicarbonate 150 MLS per hour. Remains on cefepime and Diflucan. Anticoagulated with Eliquis. He remains on Decadron 6 mg IV daily. Vitamin supplements. Chest x-ray continues to show few scattered lung infiltrates. Stable compared to previous. Left central line in place. Endotracheal tube and gastric tubes in good position. Sputum culture from 06/02/2021 was positive for pseudomonas aeruginosa and Essence. Follow up cultures reveal no growth. Blood cultures reveal no growth. White count 16.0. Hemoglobin 10.4. Platelet count 71,000. Lymphocytes 0.4. D-dimer 10.4 seconds. Sodium 135. Potassium 4.4. Bicarb 22. BUN 75. Creatinine 4.63. LDH 1095. Blood glucose 151. Objective - Vital Signs Vital signs: Vital Signs Temp 97.2 F L 06/19/21 08:00 Pulse 71 06/19/21 11:00 Resp 36 H 06/19/21 11:00 BP 116/74 06/19/21 05:00 Pulse Ox 94 L 06/19/21 11:00 Intake & Output 06/18/21 06/19/21 06/19/21 18:59 06:59 18:59 Intake Total 2801.886 2967.1 1052.370 Output Total 350 320 145 Balance 2451.886 2647.1 907.370 Weight 119 kg 119 kg Intake: IV 1878 1955 502 Furosemide 100 mg In 70 120 40 Sodium Chloride 0.9% 90 ml @ 10 MG/HR 10 mls/hr IV [facility] Rx#: [id number] Pressure bag 9 36 12 Sodium Chloride 0.45% 1, 1800 1800 450 000 ml @ 150 mls/hr IV . Q7H20M [facility] with Sodium Bicarb (1 Meq/ml) 100 ml Rx#:[id number] Intake, IV Titration 502.886 591.1 400.370 Amount Amiodarone 450 mg In 250 Dextrose 5% in Water 250 ml @ 0.5 MG/MIN 16.667 mls/hr IV .Q15H [facility] Rx#: [id number] Amiodarone 450 mg In 250 Dextrose 5% in Water 250 ml @ 0.5 MG/MIN 16.667 mls/hr IV .[facility] Rx#: [id number] Cisatracurium 200 mg In 135.338 44.1 Sodium Chloride 0.9% 180 ml @ 1 MCG/KG/MIN 5.88 mls/hr IV .Q24H [facility] Rx#: [id number] Furosemide 100 mg In 69.667 97 Sodium Chloride 0.9% 90 ml @ 10 MG/HR 10 mls/hr IV .[facility]10[facility] Rx#: [id number] fentaNYL (PF). 1,000 mcg 60.231 In Sodium Chloride 0.9% 80 ml @ 0.25 MCG/KG/HR 2. 765 mls/hr IV .Q24H [facility] Rx#:[id number] propofoL 1,000 mg In 297.881 200 90.139 Empty Bag 1 bag @ Titrate IV .Q0M [facility] Rx#: [id number] Tube Feeding 330 360 120 Other 90 60 30 Output: Urine 350 320 145 Other: Voiding Method Indwelling Catheter Indwelling Catheter Indwelling Catheter # Voids 2 # Bowel Movements 1 ABP, PAP, CO, CI - Last Documented Arterial Blood Pressure 124/69 - Exam 75-year-old male patient who is currently intubated on a mechanical ventilator. Orogastric and orotracheal tube are both in place. The patient sedated. The patient is paralyzed. HEENT examination is grossly unremarkable. Neck supple. Full range of motion. No adenopathy thyromegaly or neck vein distention. Cardiovascular examination reveals regular rhythm rate. S1-S2 normal. No S3 or S4. No discernible murmur noted. . Heart sounds are distant. Lungs reveal coarse bilateral rhonchi. No wheezes or crackles. Breath sounds equal bilaterally. Abdomen soft bowel sounds are heard. No masses or tenderness. Extremities are intact. No cyanosis clubbing or edema. Skin is without rash or lesion Neurologic examination suboptimal as the patient is currently sedated and paralyzed. - Labs CBC & Chem 7: 06/19/21 03:25 06/19/21 03:25 Labs: Abnormal Lab Results - Last 24 Hours (Table) 06/18/21 06/18/21 06/18/21 Range/Units 04:35 04:35 11:40 WBC (3.8-10.6) k/uL RBC (4.30-5.90) m/uL Hgb (13.0-17.5) gm/dL Hct (39.0-53.0) % MCHC (31.0-37.0) g/dL Plt Count (150-450) k/uL Neutrophils # (1.3-7.7) k/uL Lymphocytes # (1.0-4.8) k/uL D-Dimer (<0.60) mg/L FEU ABG pH (7.35-7.45) ABG pCO2 (35-45) mmHg ABG pO2 (83-108) mmHg ABG Total CO2 (19-24) mmol/L ABG O2 Saturation (94-97) % Sodium (137-145) mmol/L BUN (9-20) mg/dL Creatinine (0.66-1.25) mg/dL Glucose (74-99) mg/dL POC Glucose (mg/dL) 157 H (75-99) mg/dL Calcium (8.4-10.2) mg/dL Ferritin 886.0 H (22.0-322.0) ng/mL Lactate Dehydrogenase (313-618) U/L Procalcitonin 20.80 H (0.02-0.09) ng/mL 06/19/21 06/19/21 06/19/21 Range/Units 00:25 03:25 03:25 WBC 16.0 H (3.8-10.6) k/uL RBC 3.60 L (4.30-5.90) m/uL Hgb 10.4 L (13.0-17.5) gm/dL Hct 33.7 L (39.0-53.0) % MCHC 30.8 L (31.0-37.0) g/dL Plt Count 71 L (150-450) k/uL Neutrophils # 15.3 H (1.3-7.7) k/uL Lymphocytes # 0.4 L (1.0-4.8) k/uL D-Dimer 10.47 H (<0.60) mg/L FEU ABG pH (7.35-7.45) ABG pCO2 (35-45) mmHg ABG pO2 (83-108) mmHg ABG Total CO2 (19-24) mmol/L ABG O2 Saturation (94-97) % Sodium (137-145) mmol/L BUN (9-20) mg/dL Creatinine (0.66-1.25) mg/dL Glucose (74-99) mg/dL POC Glucose (mg/dL) 140 H (75-99) mg/dL Calcium (8.4-10.2) mg/dL Ferritin (22.0-322.0) ng/mL Lactate Dehydrogenase (313-618) U/L Procalcitonin (0.02-0.09) ng/mL 06/19/21 06/19/21 Range/Units 03:25 04:55 WBC (3.8-10.6) k/uL RBC (4.30-5.90) m/uL Hgb (13.0-17.5) gm/dL Hct (39.0-53.0) % MCHC (31.0-37.0) g/dL Plt Count (150-450) k/uL Neutrophils # (1.3-7.7) k/uL Lymphocytes # (1.0-4.8) k/uL D-Dimer (<0.60) mg/L FEU ABG pH 7.27 L (7.35-7.45) ABG pCO2 51 H (35-45) mmHg ABG pO2 60 L (83-108) mmHg ABG Total CO2 25 H (19-24) mmol/L ABG O2 Saturation 91.5 L (94-97) % Sodium 135 L (137-145) mmol/L BUN 75 H (9-20) mg/dL Creatinine 4.63 H (0.66-1.25) mg/dL Glucose 151 H (74-99) mg/dL POC Glucose (mg/dL) (75-99) mg/dL Calcium 7.2 L (8.4-10.2) mg/dL Ferritin (22.0-322.0) ng/mL Lactate Dehydrogenase 1095 H (313-618) U/L Procalcitonin (0.02-0.09) ng/mL Assessment and Plan Assessment: 1 Acute hypoxemic respiratory failure secondary to coronavirus associated pneumonia. Unvaccinated. The patient had developed diffuse bilateral pulmonary infiltrates secondary to COVID-19 related pneumonia/ARDS. Subsequently the patient failed BiPAP therapy and he was intubated on 06/15/2021, currently sedated and paralyzed on a mechanical ventilator. Chest x-ray was noted. Blood gases was noted. 2 Acute COVID-19 related pneumonia with diffuse but the pulmonary infiltrates and diffuse groundglass pulmonary changes 3 Elevated inflammatory markers secondary to above 4 Acute renal failure with creatinine up to 4.63, GFR 12. Nephrology is following. 5 History of chronic atrial fibrillation with recent RVR. On amiodarone drip. Eliquis for anticoagulation. 6 Elevated pro calcitonin, currently on cefepime 7 Pseudomonas and yeast in the sputum, likely secondary to immunosuppression provided by Solu-Medrol and Baricitinib. Follow-up sputum culture revealed no growth. 8 Extensive oropharyngeal candidiasis, currently on Diflucan 9 Leukocytosis 10 Hypotension. Recovered and off pressors currently Plan: The patient was seen and evaluated by Dr. Santana Chest x-ray, ABGs and labs reviewed Continue same rate at 36, increase tidal volume to 450 Increase the PEEP to 14, increased FiO2 to 60% Decrease the bicarb drip to 75 ML's per hour Continued on Decadron, vitamin supplements Follow-up chest x-ray, ABGs and labs in a.m. Overall prognosis is quite guarded We'll continue to follow and make further recommendations based on his clinical status Critical care time 38 minutes I, the cosigning physician, performed a history & physical examination of the patient. Lungs sounds bilateral scattered rhonchi. Maintaining O2 saturations in the 90s on 60% FiO2 with a PEEP of 14 via the mechanical ventilator. I discussed the assessment and plan of care with my nurse practitioner, Mar Ruelas. I attest to the above note as dictated by her.
[2021-06-19] MEDS: BENZONATATE 100 MG CAP PO SCH (12:30)
[2021-06-19] MEDS: METOPROLOL TARTRATE 25 MG TAB PO SCH (12:30)
--- NOTE | 2021-06-19 14:14 | PN ---
PROGRESS NOTE Patient is seen for followup for acute kidney injury associated with underlying COVID pneumonia and sepsis. The patient has borderline urine output at about 20-30 mL an hour. He is currently maintained on Lasix drip. He is massively fluid overloaded with positive balance of about 5 L over 24 hours. Case is discussed with nursing staff. Blood pressure this morning 113/60, heart rate 78 per minute. He is afebrile. He has edema bilaterally. Patient is sedated. He is tolerating his tube feeds. LAB: Review of labs show sodium 135, potassium 4.4, chloride 105, BUN 75, serum creatinine 4.63, hemoglobin 10.4 g/dL. ASSESSMENT: 1. Acute kidney injury, acute tubular necrosis, currently nonoliguric with borderline urine output and severe volume overload. Patient has worsening renal function with significant volume overload and progressive renal failure. I will proceed with starting renal replacement therapy tomorrow. We will consult vascular surgery and hold off on the Eliquis for now. 2. Acute hypoxic respiratory failure secondary to COVID pneumonia. Patient remains on the vent. 3. Volume overload. 4. Atrial fibrillation with RVR. Amiodarone switched to p.o. 5. Metabolic acidosis, currently slightly improved. 6. Covid pneumonia. PLAN: Discontinue IV fluids. Proceed with vascular surgery consult. We will plan for first treatment of hemodialysis tomorrow. MMODL / IJN: [id number] /
[2021-06-19] MEDS: CISATRACURIUM 200 MG in SODIUM CHLORIDE 0.9% 180 ML IV SCH (16:08)
[2021-06-19 18:56] LABS: Glucose,Whole Blood 137 mg/dL (75-99)
[2021-06-19 19:09] LABS: Hepatitis B Surface Antibody NonReactive (Nonreactive); Hepatitis B Surface Antigen Nonreactive (Nonreactive)
--- NOTE | 2021-06-19 23:24 | PN ---
PROGRESS NOTE DATE OF SERVICE: 06/19/2021 REASON FOR FOLLOWUP: Pneumonia. INTERVAL HISTORY: The patient is afebrile. The patient remains to be intubated on the vent. The patient is hemodynamically stable. No significant purulent secretions thru the ET, diarrhea or any other changes reported by the nursing staff. PHYSICAL EXAMINATION: Blood pressure 130/58 with a pulse of 80. Temperature is 98. He is 93% on 60% FiO2. General description is an elderly male lying in bed, intubated on the vent. Respiratory system: Unlabored breathing. Diminished breath sounds. Heart S1-S2 regular. Abdomen soft, no tenderness. LABS: Hemoglobin is 10.4, white count 16,000. BUN of 75, creatinine 4.63. DIAGNOSTIC IMPRESSION AND PLAN: Patient with acute respiratory failure, multifactorial in this patient who did have Covid 19 pneumonia, now with concern for secondary bacterial pneumonia. Patient is currently covered with cefepime. Repeat sputum has been not collected and monitor clinical course closely. Prognosis remains to be guarded. MMODL / IJN: [id number] /
[2021-06-19 23:59] LABS: Glucose,Whole Blood 127 mg/dL (75-99)
[2021-06-20] MEDS: fentaNYL (PF). 1,000 MCG in SODIUM CHLORIDE 0.9% 80 ML IV SCH ×2 (02:51→18:37)
--- NOTE | 2021-06-20 04:08 | P.PN ---
Subjective Progress Note Date: 06/19/21 This is a 75-year-old male who was recently admitted with COVID-19 infection with acute hypoxic respiratory failure and is being closely monitored. Pulmonary following closely and patient is maintained on dexamethasone along with Lovenox and vitamin and zinc supplements. Patient currently maintained on 15 L high flow via nasal cannula with supplemental use of 15 L nonrebreather. Patient states his breathing is slightly improved and not requiring a nonrebreather as often. Instructed the patient to use incentive spirometer and increase activity as tolerated. Patient continues to be extremely weak and will have PT/OT evaluate the patient once more stable. 06/06/2021 Patient is seen in follow-up this morning states his shortness of breath has slightly worsened and his recovery time and working to breathe has become more difficult. Patient is continued on 15 L high flow along with nonrebreather intermittently and having to use it more frequently today he states. Incentive spirometer at the bedside and instructed the patient to continue to use at least 10 times every hour while awake and encouraged increased activity as tolerated. Patient states he walked to the bathroom with assistance and became extremely dyspneic. Patient is afebrile. D-dimer is 4.72 with a WBC of 16 and hemoglobin is stable at 15.4. Sodium is 138 with a potassium of 4.5 and current creatinine is 0.63. LDH is elevated at 2492 and CRP is 6.5. Chest x-ray today shows findings consistent with COVID-19 pneumonia with bilateral interstitial and airspace disease present. 06/07/2021 Patient is seen and evaluated in follow up this morning and is having increasing shortness of breath and on 15L high flow via NC and 15 L non-rebreather. Patient has been back in bed and attempting position changes frequently along with prone position. Patient continues on lovenox, baracitinib, vitamin and zinc supplement s,and steroids. Pulmonary following closely. 06/10/2021 Patient is seen in follow up this morning and is now maintained on airvo at 60% and continues to be extremely dyspneic with minimal exertion. Patient also continues with 15L Non rebreather as needed. Patient is maintained on lovenox along with baricitinib and IV steroids with pulmonary following. Patient states he has no reserve and taking longer periods of time to recover with attempting to position change or use the urinal. 06/11/2021 Patient is seen in follow-up and evaluated this morning and is continued on Airvo and maintaining oxygen saturations in the low 90s. Pulmonary following closely. Patient is afebrile. Patient is continued on vitamin and zinc supplements along with Baricitinib and subcutaneous Lovenox along with IV steroids and will continue. Patient's d-dimer today is elevated at 18.25 and will increase Lovenox to 50 subcu twice daily. White blood count today is 18.6 and hemoglobin is stable at 13.7, sodium is 139 with a potassium of 4.3 current creatinine is 0.7. Inflammatory markers are elevated with some trending down and CRP is 1.5, LDH is 1968 and alk phos is 168. Patient is afebrile. Patient continues to be extremely anxious and will continue Xanax as needed. Encouraged increase activity as tolerated and continued position changes with incentive spirometer use. 06/12/2021 Patient is seen in follow-up this morning with no acute issues noted overnight. Patient continues on Airvo with a flow rate of 55 and FiO2 of 80% maintaining oxygen saturations above 90%. Pulmonary following closely and we'll continue to wean as tolerated. Patient continues on Lovenox twice daily along with vitamin and zinc supplements and continued on IV steroids along with albuterol and Baricitinib. White blood count is 23.7 with a hemoglobin of 14.1, sodium is 139 with a potassium of 4.4 and current creatinine is 0.62. Will repeat chest x-ray along with inflammatory markers in the morning. 06/13/2021 Patient is seen and evaluated in follow-up as morning and continues to be on Airvo. Patient appears to be more raspy with some sputum and congested today with a hoarse voice. Infectious disease and pulmonary following closely. Sputum culture from 06/02 just today preliminary showing gram-negative bacilli along with Essence albicans and patient is being started on IV cefepime with repeat sputum culture ordered along with oral Diflucan. White blood count is 23.5 with hemoglobin of 13.8, sodium is 137 and potassium is 5.5 and current creatinine is 0.55. LFTs are mildly elevated. Repeat d-dimer along with CRP and LDH have been ordered. Will repeat a.m. labs. Chest x-ray today shows con tinued peripheral and lower lung interstitial infiltrates of Covid pneumonia without significant change. 06/14/2021 Patient is seen and evaluated in follow-up this morning continues to be dyspneic and requesting to go to the bed as he has been sitting up in the chair all day. Patient has been started on Diflucan along with IV cefepime and sputum culture from 06/02/2021 resulted showing Pseudomonas aeruginosa along with Essence albicans. Infectious disease is following closely. Patient is completing Baricitinib and will be transitioned to oral prednisone taper with pulmonary following closely. Patient has been started on eliquis. D-dimer today has trended down to 11.02, LDH is 2178, CRP is 3.2, liver functions trending down. White blood count slightly trending down at 20.2 and hemoglobin is stable at 13.7, sodium is 136 with a potassium of 4.3 and current creatinine is 0.57. Continues to have a mildly raspy voice with some throat dryness and will add Cepacol. 06/15/2021 Patient evaluated in bed and is resting on the BiPAP in the intensive care unit, he had desaturated this morning will be moved to the bathroom and initially was on a 15L HF, however is now requiring BiPAP. Patient was started on a Precedex drip. Repeat chest x-ray today which revealed persistent multifocal and confluent bilateral reticulonodular opacities is consistent with known coronary infection more prominent in the lower lungs. Patient finished a course of therapy with Baricitinib and transitioned to oral prednisone. Labs reviewed today include a white blood cell count 21.2, hemoglobin of 12.5. Blood gases show a pO2 of 32 and O2 saturation of 50.3. Chloride is 110, CO2 20, sodium 137, potassium 4. LDH is worse today at 2277, alk phos 158, CRP is trending upwards of 4.6. Patient has remained afebrile, heart rate is now 83, respirations 32, blood pressure 124/68. Oxygen saturation is maintaining in the mid to high 80s on 100% BiPAP. Patient is nothing by mouth and oral medications are unable to be given. Patient is on IV cefepime for a sputum culture positive for Pseudomonas. He is IV Diflucan for oral candidiasis that was improving as of yesterday. 06/16/2021 Patient is evaluated in the intensive care unit, he is status post intubation and has NG tube in place. Labs reviewed today included white blood cell, 44.2, d-dimer greater than 34. ABGs from the A-line included a pH of 7.15, pCO2 of 71, total CO2 is 27 and oxygen saturation of 98. Bicarb is 25 and his pO2 is 107. Additional labs include a serum potassium 5.1, chloride of 109, BUN of 27, creatinine 1.06. Vital signs include a heart rate of 123 tachycardia, respiratory rate of 36, blood pressure 100/50, he is 98% oxygen saturation. Patient is on vasopressors for his blood pressure. Repeat blood cultures are negative. Patient is receiving propofol for sedation. His chest x-ray was reviewed which is showing bilateral pulmonary infiltrates demonstrating COVID- 19 pneumonia with ARDS. Patient is still getting IV cefepime for a sputum culture Pseudomonas although his pro calcitonin level is 0.03 which is not usually indicative of a bacterial infection. Additional inflammatory markers remain elevated. Patient did receive 2 L saline bolus. Repeat labs in the morning, prognosis is guarded for this patient. 06/17/2021 Patient is seen in follow-up continues to be monitored closely in the ICU with multiple medical consultations following. Prognosis is extremely guarded. Patient's respiratory status significantly worsened requiring mechanical ventilation and intubation and currently patient is sedated. White blood count is worsened at 26.1 and hemoglobin is 12.2, d-dimer is 27.06, ABG is 7.16 pH with a pCO2 of 57 and a pO2 of 68 and bicarb is 20, sodium is 140 with a potassium of 5.0 and current creatinine has worsened at 2.29 pro calcitonin is 24.40. Infectious disease along with pulmonary pin chaser following closely. Patient continues on cefepime along with eliquis, vitamin and zinc supplements and patient has finished Baricitinib. Patient was on oral Decadron and is being transitioned back to IV dexamethasone along with Diflucan. Patient was given a dose of IV Lasix and nephrology has been consulted. Cardiology consulted as well and patient is currently on amiodarone drip along with Cleviprex and currently sedated on propofol. Patient also has norepinephrine drip as well. Patient being started on sodium bicarb drip. Patient also has low-grade fevers. 06/18/2021 Patient is seen in follow up in the ICU and maintained on mechanical vent intubated and sedated. Patient continues on NImbex, sodium bicarb, amiodarone, and being started on fentanyl as IV lasix drip with multiple medical consultations following. Kidney functions continue to deteriorate with nephrology following closely. Discussion being had about possible hemodialysis if kidney functions continue to worsen. Creatinine currently 3.69 today. 06/19/2021 Patient remains on mechanical vent with minimal urine output note and extensive volume overload with worsening kidney functions and would like to proceed with hemodialysis catheter placement with nephrology following closely. Multiple consultations following and Dr. Mann consulted for hemodialysis catheter placement and will hold eliquis. Amiodarone being transitioned to oral with cardiology following closely. Continue close monitoring in the ICU. Overall Prognosis remains extremely poor and guarded. Review of systems: Unable to complete a full review of symptoms as patient is sedated and on a ventilator. Active Medications Acetaminophen (Acetaminophen Tab 325 Mg Tab) 650 mg PO Q6HR PRN PRN Reason: Fever and/ or Mild Pain Last Admin: 06/14/21 22:22 Dose: 650 mg Documented by: Albuterol Sulfate (Albuterol Hfa Inhaler) 2 puff INHALATION RT-QID [facility] Last Admin: 06/18/21 20:21 Dose: 2 puff Documented by: Albuterol Sulfate (Albuterol Hfa Inhaler) 2 puff INHALATION RT-QID PRN PRN Reason: Shortness Of Breath Or Wheezing Last Admin: 06/15/21 03:30 Dose: 2 puff Documented by: Apixaban (Apixaban 5 Mg Tab) 5 mg PO BID [facility]; Protocol Last Admin: 06/18/21 20:56 Dose: 5 mg Documented by: Artificial Tears (Artificial Tears-Hypromellose Drops 15 Ml Btl) 2 drops BOTH EYES Q4HR [facility] Last Admin: 06/19/21 01:36 Dose: 2 drops Documented by: Ascorbic Acid (Ascorbic Acid 500 Mg Tab) 500 mg PO DAILY [facility] Last Admin: 06/18/21 07:43 Dose: 500 mg Documented by: Aspirin (Aspirin 81 Mg) 81 mg PO DAILY [facility] Last Admin: 06/18/21 07:43 Dose: 81 mg Documented by: Benzocaine/Menthol (Benzocaine/Menthol Lozeng 1 Each Lozenge) 1 each MUCOUS MEM Q4HR PRN PRN Reason: Sore Throat Chlorhexidine Gluconate (Chlorhexidine Gluconate 15 Ml Cup) 15 ml MUCOUS MEM BID [facility] Last Admin: 10/05/21 20:56 Dose: 15 ml Documented by: Cholecalciferol (Cholecalciferol 25 Mcg (1000 Iu) Tablet) 25 mcg PO DAILY [facility] Last Admin: 06/18/21 07:43 Dose: 25 mcg Documented by: Cyanocobalamin (Cyanocobalamin 500 Mcg Tab) 1,000 mcg PO DAILY [facility] Last Admin: 06/18/21 07:43 Dose: 1,000 mcg Documented by: Dexamethasone Sodium Phosphate (Dexamethasone Sod Phosphate 10 Mg/Ml 1 Ml Vial) 6 mg IV DAILY [facility] Last Admin: 06/18/21 07:44 Dose: 6 mg Documented by: Fluconazole (Fluconazole 100 Mg Tab) 100 mg PO DAILY [facility] Last Admin: 06/18/21 07:56 Dose: 100 mg Documented by: Propofol 1,000 mg/ IV Solution 100 mls @ 0 mls/hr IV .Q0M [facility]; Protocol Last Admin: 06/19/21 01:37 Dose: 50 mcg/kg/min, 33.18 mls/hr Documented by: Norepinephrine Bitartrate 8 mg (/ Sodium Chloride) 258 mls @ 9.482 mls/hr IV .Q24H [facility]; Protocol Last Titration: 06/18/21 00:38 Dose: 0 mcg/kg/min, 0 mls/hr Documented by: Cisatracurium Besylate 200 mg/ (Sodium Chloride) 200 mls @ 5.88 mls/hr IV .Q24H [facility]; Protocol Last Admin: 06/18/21 20:58 Dose: 1.5 mcg/kg/min, 8.82 mls/hr Documented by: Cefepime HCl 1 gm/ Sodium (Chloride) 50 mls @ 12.5 mls/hr IVPB Q12HR [facility] Last Admin: 06/18/21 20:56 Dose: 12.5 mls/hr Documented by: Sodium Bicarbonate 100 ml/ (Sodium Chloride) 1,100 mls @ 150 mls/hr IV .Q7H20M [facility] Last Admin: 06/19/21 03:50 Dose: Not Given Documented by: Fentanyl Citrate 1,000 mcg/ (Sodium Chloride) 100 mls @ 2.765 mls/hr IV .Q24H [facility]; Protocol Last Admin: 06/18/21 10:24 Dose: 0.25 mcg/kg/hr, 2.765 mls/hr Documented by: Furosemide 100 mg/ Sodium (Chloride) 100 mls @ 10 mls/hr IV .Q10H [facility] Last Admin: 06/19/21 03:33 Dose: 10 mg/hr, 10 mls/hr Documented by: Amiodarone HCl 450 mg/ (Dextrose/Water) 250 mls @ 16.667 mls/hr IV .Q15H [facility]; Protocol Stop: 06/19/21 05:14 Last Admin: 06/18/21 12:03 Dose: 0.5 mg/min, 16.667 mls/hr Documented by: Pantoprazole Sodium (Pantoprazole 40 Mg/10 Ml Vial) 40 mg IVP BID [facility] Last Admin: 06/18/21 20:55 Dose: 40 mg Documented by: Senna (Sennosides 8.6 Mg Tab) 8.6 mg PO BID [facility] Last Admin: 06/18/21 20:56 Dose: 8.6 mg Documented by: Zinc Sulfate (Zinc Sulfate 220 Mg Cap) 220 mg PO DAILY [facility] Last Admin: 06/18/21 07:43 Dose: 220 mg Documented by: Physical exam: Gen: This is a 75-year-old male sedated and intubated on propofol and mechanical ventilation HEENT: Head is atraumatic, normocephalic. Pupils equal, round. Sclerae is anicteric. NECK: Supple. No JVD. No lymphadenopathy. No thyromegaly. LUNGS: Diminished breath sounds bilaterally with scattered coarse rhonchi noted. No intercostal retractions. HEART: Irregular, tachycardic ABDOMEN: Soft. Bowel sounds are present. No masses. No guarding or rigidity noted. EXTREMITIES: generalized edema noted. No calf tenderness. NEUROLOGICAL: Patient is intubated and sedated Assessment: Acute COVID-19 infection with acute component of interstitial pneumonia, bilateral with acute hypoxic respiratory failure and possible sepsis secondary to COVID-19 Status post mechanical ventilation and intubation secondary to above acute renal failure likely ATN with worsening kidney functions and minimal urine output and continues on lasix drip and consult placed to Dr. Mann for dialysis catheter placement with possible hemodialysis starting tomorrow. Hold eliquis for now to have cath placed. nephrology following closely volume overload secondary to ARF and maintained on IV lasix drip and now will be requiring hemodialysis metabolic acidosis and placed on bicarb drip afib with RVR currently rate controlled and transitioning to oral amiodarone, cardiology following Lactic acidosis secondary to above Initial sputum culture showing Essence albicans and pseudomonas aeruginosa and maintained on IV cefepime, infectious disease following closely Oral candidiasis started on Diflucan, sputum cultures from 06/02/2021 Essence albicans Extensive interstitial bilateral COVID-19 pneumonia Elevated white blood count possibly secondary to above Possible subsegmental pulmonary embolism ruled out History of atrial fibrillation Anxiety Remote history of nicotine dependence GI prophylaxis: Protonix DVT prophylaxis: On eliquis which will be held for dialysis cath placement tomorrow Full code Plan: Recommend to continue with current medications and continue with inhalers, IV dexamethasone, and vitamin supplements. Patient has completed baricitinib. Patient currently on eliquis 5 mg twice a day and will hold for dialysis cath placement with dr. Mann tomorrow. Patient respiratory status continued to deteriorate rapidly with no improvement on 100% BiPAP and ultimately intubated and is being closely monitored in the ICU. Patient on multiple drips. Discussed with Mariajose about CODE STATUS and overall prognosis and wishes to remain full code. Plan is for initiating hemodialysis for extensive volume overload. Prognosis is extremely poor and guarded and will continue to monitor closely. Repeat labs and cxr in the am. Objective - Vital Signs Vital signs: Vital Signs Temp 97.2 F L 06/19/21 08:00 Pulse 76 06/19/21 08:00 Resp 36 H 06/19/21 08:00 BP 116/74 06/19/21 05:00 Pulse Ox 88 L 06/19/21 08:00 Intake & Output 06/18/21 06/19/21 06/19/21 18:59 06:59 18:59 Intake Total 2801.886 2967.1 556.370 Output Total 350 320 70 Balance 2451.886 2647.1 486.370 Weight 119 kg Intake: IV 1879 1956 316 Furosemide 100 mg In 70 120 10 Sodium Chloride 0.9% 90 ml @ 10 MG/HR 10 mls/hr IV .Q10H [facility] Rx#: [id number] Pressure bag 9 36 6 Sodium Chloride 0.45% 1, 1800 1800 300 000 ml @ 150 mls/hr IV . Q7H20M [facility] with Sodium Bicarb (1 Meq/ml) 100 ml Rx#:[id number] Intake, IV Titration 502.886 591.1 150.370 Amount Amiodarone 450 mg In 250 Dextrose 5% in Water 250 ml @ 0.5 MG/MIN 16.667 mls/hr IV .Q15H [facility] Rx#: [id number] Cisatracurium 200 mg In 135.338 44.1 Sodium Chloride 0.9% 180 ml @ 1 MCG/KG/MIN 5.88 mls/hr IV .Q24H [facility] Rx#: [id number] Furosemide 100 mg In 69.667 97 Sodium Chloride 0.9% 90 ml @ 10 MG/HR 10 mls/hr IV .Q10H [facility] Rx#: [id number] fentaNYL (PF). 1,000 mcg 60.231 In Sodium Chloride 0.9% 80 ml @ 0.25 MCG/KG/HR 2. 765 mls/hr IV .Q24H [facility] Rx#:[id number] propofoL 1,000 mg In 297.881 200 90.139 Empty Bag 1 bag @ Titrate IV .Q0M [facility] Rx#: [id number] Tube Feeding 330 360 60 Other 90 60 30 Output: Urine 350 320 70 Other: Voiding Method Indwelling Catheter Indwelling Catheter Indwelling Catheter # Voids 2 # Bowel Movements 1 ABP, PAP, CO, CI - Last Documented Arterial Blood Pressure 135/66 - Labs CBC & Chem 7: 06/19/21 03:25 06/19/21 03:25 Labs: Abnormal Lab Results - Last 24 Hours (Table) 06/18/21 06/18/21 06/18/21 Range/Units 04:35 04:35 11:40 WBC (3.8-10.6) k/uL RBC (4.30-5.90) m/uL Hgb (13.0-17.5) gm/dL Hct (39.0-53.0) % MCHC (31.0-37.0) g/dL Plt Count (150-450) k/uL Neutrophils # (1.3-7.7) k/uL Lymphocytes # (1.0-4.8) k/uL D-Dimer (<0.60) mg/L FEU ABG pH (7.35-7.45) ABG pCO2 (35-45) mmHg ABG pO2 (83-108) mmHg ABG Total CO2 (19-24) mmol/L ABG O2 Saturation (94-97) % Sodium (137-145) mmol/L BUN (9-20) mg/dL Creatinine (0.66-1.25) mg/dL Glucose (74-99) mg/dL POC Glucose (mg/dL) 157 H (75-99) mg/dL Calcium (8.4-10.2) mg/dL Ferritin 886.0 H (22.0-322.0) ng/mL Lactate Dehydrogenase (313-618) U/L Procalcitonin 20.80 H (0.02-0.09) ng/mL 06/19/21 06/19/21 06/19/21 Range/Units 00:25 03:25 03:25 WBC 16.0 H (3.8-10.6) k/uL RBC 3.60 L (4.30-5.90) m/uL Hgb 10.4 L (13.0-17.5) gm/dL Hct 33.7 L (39.0-53.0) % MCHC 30.8 L (31.0-37.0) g/dL Plt Count 71 L (150-450) k/uL Neutrophils # 15.3 H (1.3-7.7) k/uL Lymphocytes # 0.4 L (1.0-4.8) k/uL D-Dimer 10.47 H (<0.60) mg/L FEU ABG pH (7.35-7.45) ABG pCO2 (35-45) mmHg ABG pO2 (83-108) mmHg ABG Total CO2 (19-24) mmol/L ABG O2 Saturation (94-97) % Sodium (137-145) mmol/L BUN (9-20) mg/dL Creatinine (0.66-1.25) mg/dL Glucose (74-99) mg/dL POC Glucose (mg/dL) 140 H (75-99) mg/dL Calcium (8.4-10.2) mg/dL Ferritin (22.0-322.0) ng/mL Lactate Dehydrogenase (313-618) U/L Procalcitonin (0.02-0.09) ng/mL 06/19/21 06/19/21 Range/Units 03:25 04:55 WBC (3.8-10.6) k/uL RBC (4.30-5.90) m/uL Hgb (13.0-17.5) gm/dL Hct (39.0-53.0) % MCHC (31.0-37.0) g/dL Plt Count (150-450) k/uL Neutrophils # (1.3-7.7) k/uL Lymphocytes # (1.0-4.8) k/uL D-Dimer (<0.60) mg/L FEU ABG pH 7.27 L (7.35-7.45) ABG pCO2 51 H (35-45) mmHg ABG pO2 60 L (83-108) mmHg ABG Total CO2 25 H (19-24) mmol/L ABG O2 Saturation 91.5 L (94-97) % Sodium 135 L (137-145) mmol/L BUN 75 H (9-20) mg/dL Creatinine 4.63 H (0.66-1.25) mg/dL Glucose 151 H (74-99) mg/dL POC Glucose (mg/dL) (75-99) mg/dL Calcium 7.2 L (8.4-10.2) mg/dL Ferritin (22.0-322.0) ng/mL Lactate Dehydrogenase 1095 H (313-618) U/L Procalcitonin (0.02-0.09) ng/mL
[2021-06-20 04:11] LABS: Basophils % (A) 0 %; Eosinophils % (A) 0 %; HCT 29.7 % (39.0-53.0); HGB 9.6 gm/dL (13.0-17.5); Lymphocytes # (A) 0.4 k/uL (1.0-4.8); Lymphocytes % (A) 3 %; MCH 29.8 pg (25.0-35.0); MCHC 32.4 g/dL (31.0-37.0); MCV 91.9 fL (80.0-100.0); Mean Platelet Volume 9.3; Monocytes # (A) 0.4 k/uL (0-1.0); Monocytes % (A) 3 %; Neutrophils # (A) 11.1 k/uL (1.3-7.7); Neutrophils % (A) 93 %; Platelet Count 61 k/uL (150-450); RBC 3.23 m/uL (4.30-5.90); RDW 13.9 % (11.5-15.5); WBC 11.9 k/uL (3.8-10.6)
[2021-06-20 04:20] LABS: Calcium 7.4 mg/dL (8.4-10.2)
[2021-06-20] MEDS: ARTIFICIAL TEARS-HYPROMELLOSE DROPS 15 ML BTL BOTH EYES SCH ×5 (04:34→20:50)
[2021-06-20 04:49] LABS: ABG Base Excess -4.5 mmol/L; ABG HCO3 22 mmol/L (21-25); ABG Oxygen Saturation 95.5 % (94-97); ABG PCO2 45 mmHg (35-45); ABG PH 7.29 (7.35-7.45); ABG PO2 77 mmHg (83-108); ABG TCO2 23 mmol/L (19-24)
[2021-06-20 05:28] LABS: Allen Test Performed? no
[2021-06-20] MEDS: FUROSEMIDE 100 MG in SODIUM CHLORIDE 0.9% 90 ML IV SCH (05:55)
[2021-06-20 06:00] LABS: Glucose,Whole Blood 120 mg/dL (75-99)
--- NOTE | 2021-06-20 07:44 | XR ---
EXAMINATION TYPE: XR chest 1V portable DATE OF EXAM: 06/20/2021 Comparison: 06/19/2021 Clinical History: 75-year-old male Tube placement Findings: Bilateral subcutaneous emphysema has progressed from prior exam. ET tube satisfactory. NG tube course s below the diaphragm. Left subclavian CVC tip lower SVC. Heart borderline enlarged. Diffuse intersti tial opacities persist. Patchy retrocardiac and left basilar opacity. Possible small left pleural eff usion. No appreciable pneumothorax. Impression: 1. Diffuse bilateral interstitial lung disease persists. More focal left basilar consolidation/airspa ce disease also persists. Possible small left pleural effusion. 2. Increasing subcutaneous emphysema at the base of the neck and along the chest, bilaterally.
[2021-06-20] MEDS: CYANOCOBALAMIN 500 MCG TAB PO SCH (08:04)
[2021-06-20] MEDS: ZINC SULFATE 220 MG CAP PO SCH (08:04)
[2021-06-20] MEDS: CHLORHEXIDINE GLUCONATE 15 ML CUP MUCOUS MEM SCH ×2 (08:04→20:47)
[2021-06-20] MEDS: PANTOPRAZOLE 40 MG/10 ML VIAL IVP SCH ×2 (08:04→20:48)
[2021-06-20] MEDS: CHOLECALCIFEROL 25 MCG (1000 IU) TABLET PO SCH (08:04)
[2021-06-20] MEDS: ASCORBIC ACID 500 MG TAB PO SCH (08:04)
[2021-06-20] MEDS: SENNOSIDES 8.6 MG TAB PO SCH ×2 (08:04→20:47)
[2021-06-20] MEDS: AMIODARONE 200 MG TAB PO SCH ×2 (08:05→20:47)
[2021-06-20] MEDS: DEXAMETHASONE SOD PHOSPHATE 10 MG/ML 1 ML VIAL IV SCH (08:05)
[2021-06-20] MEDS: FLUCONAZOLE 100 MG TAB PO SCH (08:06)
[2021-06-20] MEDS: CISATRACURIUM 200 MG in SODIUM CHLORIDE 0.9% 180 ML IV SCH (08:08)
[2021-06-20] MEDS: CEFEPIME 1 GM in SODIUM CHLORIDE 0.9% 50 ML IVPB SCH ×2 (08:08→20:48)
[2021-06-20] MEDS: ALBUTEROL HFA INHALER INHALATION SCH ×4 (08:33→19:41)
[2021-06-20] MEDS ORDERED: bisacodyL 10 MG SUPP RECTAL STA (10:50)
[2021-06-20] MEDS: METOCLOPRAMIDE 5 MG/ML 2 ML VIAL IVP SCH ×2 (11:04→20:48)
[2021-06-20 11:34] LABS: Glucose,Whole Blood 110 mg/dL (75-99)
--- NOTE | 2021-06-20 12:03 | P.PN ---
Subjective Progress Note Date: 06/20/21 Principal diagnosis: COVID-19 pneumonia The patient is seen today 06/19/2021 in follow-up in the intensive care unit. He remains intubated and on the mechanical ventilator. Current settings are assist-control rate of 36, tidal volume 430, FiO2 50% and a PEEP of 14. Morning blood gases revealed a pO2 of 60, pCO2 of 51, pH 7.27. He remains sedated on propofol at 50 mcg/kg/m, paralyzed with Nimbex at 1.5 mcg/kg/m. He is on fentanyl at 0.5 mcg/kg/hr. Amiodarone drip at 0.5 mg/m. Lasix drip at 10 mg per hour. D5W with 3 A of sodium bicarbonate 150 MLS per hour. Remains on cefepime and Diflucan. Anticoagulated with Eliquis. He remains on Decadron 6 mg IV daily. Vitamin supplements. Chest x-ray continues to show few scattered lung infiltrates. Stable compared to previous. Left central line in place. Endotracheal tube and gastric tubes in good position. Sputum culture from 06/02/2021 was positive for pseudomonas aeruginosa and Essence. Follow up cultures reveal no growth. Blood cultures reveal no growth. White count 16.0. Hemoglobin 10.4. Platelet count 71,000. Lymphocytes 0.4. D-dimer 10.4 seconds. Sodium 135. Potassium 4.4. Bicarb 22. BUN 75. Creatinine 4.63. LDH 1095. Blood glucose 151. The patient is seen today 06/20/2021, the intensive care unit. He remains intubated and on mechanical ventilator. Current mode of assist control with a respiratory rate of 36, tidal volume 450, FiO2 55% and a PEEP of 16. Morning blood gases on 60% FiO2 revealed a PaO2 of 77, pCO2 45, pH 7.29. Peak airway pressures 38, plateau pressure 36. He remains on fentanyl at 0.5 mcg/kg per hour, Lasix drip at 10 mg per hour, propofol at 50 mcg/g/m, Nimbex at 2mcg/kg/min. 0.9 normal saline at 10 MLS per hour. He remains on cefepime and Diflucan. He is currently in atrial fibrillation with controlled ventricular rate. Chest x-ray continues to show diffuse bilateral interstitial airspace disease. More focal left basilar consolidation also persists. Small left pleural effusion. No appreciable pneumothorax. Increasing subcutaneous emphys ingris at the base of the left neck and along the chest bilaterally. Follow-up sputum culture revealed no growth. Blood cultures reveal no growth. White count 11.9. Hemoglobin 9.6. Platelet count 61,000. Lymphocytes 0.4. D-dimer 8.4. Sodium 135. Potassium 5.0. Bicarb 21. Creatinine 5.23. BUN 99. Glucose 115. LDH 1015. He is continued on Decadron, and Eliquis, vitamin supplements. He is to receive a hemodialysis catheter today. Tube feedings currently on hold due to high residuals. Objective - Vital Signs Vital signs: Vital Signs Temp 97.6 F 06/20/21 08:00 Pulse 87 06/20/21 10:00 Resp 36 H 06/20/21 10:00 BP 116/74 06/19/21 23:00 Pulse Ox 94 L 06/20/21 10:00 Intake & Output 06/19/21 06/20/21 06/20/21 18:59 06:59 18:59 Intake Total 2025.433 1020.478 282.227 Output Total 355 1550 410 Balance 1670.433 -529.522 -127.773 Weight 119 kg 124.8 kg Intake: IV 686 386 115 0.9 80 240 100 Cefepime 2 gm In Sodium 100 Chloride 0.9% 100 ml @ 25 mls/hr IVPB Q8HR [facility] Rx# :[id number] Furosemide 100 mg In 120 10 Sodium Chloride 0.9% 90 ml @ 10 MG/HR 10 mls/hr IV .Q10H [facility] Rx#: [id number] Pressure bag 36 36 15 Sodium Chloride 0.45% 1, 450 000 ml @ 150 mls/hr IV . Q7H20M [facility] with Sodium Bicarb (1 Meq/ml) 100 ml Rx#:[id number] Intake, IV Titration 889.433 544.478 167.227 Amount Amiodarone 450 mg In 250 Dextrose 5% in Water 250 ml @ 0.5 MG/MIN 16.667 mls/hr IV .Q15H [facility] Rx#: [id number] Cisatracurium 200 mg In 170.814 167.227 Sodium Chloride 0.9% 180 ml @ 1 MCG/KG/MIN 5.88 mls/hr IV .Q24H [facility] Rx#: [id number] Furosemide 100 mg In 100 159.5 Sodium Chloride 0.9% 90 ml @ 10 MG/HR 10 mls/hr IV .Q10H [facility] Rx#: [id number] fentaNYL (PF). 1,000 mcg 78.480 84.978 In Sodium Chloride 0.9% 80 ml @ 0.25 MCG/KG/HR 2. 765 mls/hr IV .Q24H [facility] Rx#:[id number] propofoL 1,000 mg In 290.139 300 Empty Bag 1 bag @ Titrate IV .Q0M [facility] Rx#: [id number] Tube Feeding 360 60 0 Other 90 30 Output: Gastric Drainage 1220 200 Urine 355 330 210 Other: Voiding Method Indwelling Catheter Indwelling Catheter ABP, PAP, CO, CI - Last Documented Arterial Blood Pressure 153/69 - Exam 75-year-old male patient who is currently intubated on a mechanical ventilator. Orogastric and orotracheal tube are both in place. The patient is sedated. The patient is paralyzed. HEENT examination is grossly unremarkable. Neck supple. Full range of motion. No adenopathy thyromegaly or neck vein distention. Some left neck and chest subcutaneous emphysema noted. Cardiovascular examination reveals regular rhythm rate. S1-S2 normal. No S3 or S4. No discernible murmur noted. . Heart sounds are distant. Lungs reveal coarse bilateral rhonchi. Crackles in the posterior bases left greater than right. Breath sounds equal bilaterally. Abdomen soft bowel sounds are heard. No masses or tenderness. Extremities are intact. No cyanosis clubbing or edema. Skin is without rash or lesion Neurologic examination suboptimal as the patient is currently sedated and paralyzed. - Labs CBC & Chem 7: 06/20/21 03:45 06/20/21 03:45 Labs: Abnormal Lab Results - Last 24 Hours (Table) 06/19/21 06/19/21 06/19/21 Range/Units 03:25 18:54 23:58 WBC (3.8-10.6) k/uL RBC (4.30-5.90) m/uL Hgb (13.0-17.5) gm/dL Hct (39.0-53.0) % Plt Count (150-450) k/uL Neutrophils # (1.3-7.7) k/uL Lymphocytes # (1.0-4.8) k/uL D-Dimer (<0.60) mg/L FEU ABG pH (7.35-7.45) ABG pO2 (83-108) mmHg Sodium (137-145) mmol/L Carbon Dioxide (22-30) mmol/L BUN (9-20) mg/dL Creatinine (0.66-1.25) mg/dL Glucose (74-99) mg/dL POC Glucose (mg/dL) 137 H 127 H (75-99) mg/dL Calcium (8.4-10.2) mg/dL Lactate Dehydrogenase (313-618) U/L Hep Bs Antibody NonReactive A (Nonreactive) 06/20/21 06/20/21 06/20/21 Range/Units 03:45 03:45 03:45 WBC 11.9 H (3.8-10.6) k/uL RBC 3.23 L (4.30-5.90) m/uL Hgb 9.6 L (13.0-17.5) gm/dL Hct 29.7 L (39.0-53.0) % Plt Count 61 L (150-450) k/uL Neutrophils # 11.1 H (1.3-7.7) k/uL Lymphocytes # 0.4 L (1.0-4.8) k/uL D-Dimer 8.40 H (<0.60) mg/L FEU ABG pH (7.35-7.45) ABG pO2 (83-108) mmHg Sodium 135 L (137-145) mmol/L Carbon Dioxide 21 L (22-30) mmol/L BUN 99 H (9-20) mg/dL Creatinine 5.23 H (0.66-1.25) mg/dL Glucose 115 H (74-99) mg/dL POC Glucose (mg/dL) (75-99) mg/dL Calcium 7.4 L (8.4-10.2) mg/dL Lactate Dehydrogenase 1015 H (313-618) U/L Hep Bs Antibody (Nonreactive) 06/20/21 06/20/21 06/20/21 Range/Units 04:48 05:59 11:32 WBC (3.8-10.6) k/uL RBC (4.30-5.90) m/uL Hgb (13.0-17.5) gm/dL Hct (39.0-53.0) % Plt Count (150-450) k/uL Neutrophils # (1.3-7.7) k/uL Lymphocytes # (1.0-4.8) k/uL D-Dimer (<0.60) mg/L FEU ABG pH 7.29 L (7.35-7.45) ABG pO2 77 L (83-108) mmHg Sodium (137-145) mmol/L Carbon Dioxide (22-30) mmol/L BUN (9-20) mg/dL Creatinine (0.66-1.25) mg/dL Glucose (74-99) mg/dL POC Glucose (mg/dL) 120 H 110 H (75-99) mg/dL Calcium (8.4-10.2) mg/dL Lactate Dehydrogenase (313-618) U/L Hep Bs Antibody (Nonreactive) Assessment and Plan Assessment: 1 Acute hypoxemic respiratory failure secondary to coronavirus associated pneumonia. Unvaccinated. The patient had developed diffuse bilateral pulmonary infiltrates secondary to COVID-19 related pneumonia/ARDS. Subsequently the patient failed BiPAP therapy and he was intubated on 06/15/2021, currently sedated and paralyzed on a mechanical ventilator. Chest x-ray was noted. Blood gas was noted. 2 Acute COVID-19 related pneumonia with diffuse but the pulmonary infiltrates and diffuse groundglass pulmonary changes 3 Elevated inflammatory markers secondary to above 4 Acute renal failure with creatinine up to 5.23, GFR 10. Plan is to start renal replacement therapy today 06/20/2021 5 History of chronic atrial fibrillation with recent RVR. On oral amiodarone. Eliquis for anticoagulation. 6 Elevated pro calcitonin, currently on cefepime 7 Pseudomonas and yeast in the sputum, likely secondary to immunosuppression provided by Solu-Medrol and Baricitinib. Follow-up sputum culture revealed no growth. 8 Extensive oropharyngeal candidiasis, currently on Diflucan 9 Leukocytosis 10 Hypotension. Recovered and off pressors currently Plan: The patient was seen and evaluated by Dr. Santana Chest x-ray, ABGs and labs reviewed Plan is for renal replacement therapy Tube feeds on hold due to high residual Continued on Decadron, Eliquis, vitamin supplements Follow-up chest x-ray, ABGs and labs in a.m. Overall prognosis is quite guarded We'll continue to follow and make further recommendations based on his clinical status Critical care time 36 minutes I, the cosigning physician, performed a history & physical examination of the patient. Lungs sounds bilateral scattered rhonchi. Maintaining O2 saturations in the 90s on 60% FiO2 with a PEEP of 14 via the mechanical ventilator. I discussed the assessment and plan of care with my nurse practitioner, Mar Ruelas. I attest to the above note as dictated by her.
[2021-06-20] MEDS: APIXABAN 5 MG TAB PO SCH ×2 (12:24→20:47)
--- NOTE | 2021-06-20 12:52 | PN ---
PROGRESS NOTE Patient is being followed for acute kidney injury. Case is discussed with nursing staff. Patient is not examined. His renal function had deteriorated further. Dialysis catheter was placed this morning and plan is to proceed with hemodialysis today. Vital signs are reviewed. Blood pressure is 160/70, heart rate 91 per minute. Patient is afebrile. Patient is not examined. Case discussed with nursing staff. Labs show sodium 135, potassium 5.0, BUN 99, creatinine 5.2, hemoglobin 9.6 g/dL. ASSESSMENT: 1. Acute kidney injury secondary to COVID pneumonia, sepsis, hypotension, currently nonoliguric, maintained on Lasix drip but with significant volume overload and rapidly deteriorating renal function. Patient will be started on dialysis today. 2. Acute hypoxic respiratory failure secondary to COVID pneumonia and volume overload. 3. Metabolic acidosis associated with renal failure, now improved. 4. Atrial fibrillation with rapid ventricular response. Amiodarone is switched to p.o. PLAN: Proceed with hemodialysis today and we will repeat again in a.m. Goal UF of about 2 L as tolerated. MMODL / IJN: [id number] /
--- NOTE | 2021-06-20 13:04 | CONS ---
CONSULTATION This is a 75-year-old gentleman who has been admitted to the intensive care unit COVID positive, has been intubated, with history of acute and chronic renal failure. I was consulted for placement of urgent dialysis catheter. PAST MEDICAL HISTORY: Atrial fibrillation, history of pneumonia. SURGICAL HISTORY: Patient had a cholecystectomy, hernia repair. SOCIAL HISTORY: History of nicotine dependence. PHYSICAL EXAMINATION: Patient was seen in his room. Patient has been intubated. Neck is supple. Chest has bilateral crackles and rhonchi. Abdomen is soft, non-tender. Femorals are not palpable. Patient has marked edema of both lower extremities and the scrotum. PLAN: Placement of a dialysis catheter. Risks and complications were discussed. MMODL / IJN: [id number] /
--- NOTE | 2021-06-20 13:30 | OP ---
OPERATIVE REPORT PREOPERATIVE DIAGNOSIS: Acute and chronic renal failure with COVID positive; has been intubated. POSTOPERATIVE DIAGNOSIS: Acute and chronic renal failure with COVID positive; has been intubated. PROCEDURE PERFORMED: Ultrasound-guided micropuncture into right jugular vein. PROCEDURE DESCRIPTION: Patient was prepped and drapes were applied in the usual sterile manner. Micropuncture guidewire was passed and a 4-Algerian dilator advanced on top of the guidewire. Then we passed a regular guidewire without any resistance. Dilator was advanced on the top of the guidewire. Then we placed a dialysis catheter on the top of the guidewire. Guidewire was removed, flushed with heparin saline and hep-locked, secured with 3-0 nylon. Patient tolerated the procedure well. MMHELENA / PREMAN: [id number] /
[2021-06-20] MEDS: NOREPINEPHRINE 8 MG in SODIUM CHLORIDE 0.9% 250 ML IV SCH (16:41)
[2021-06-20 17:49] LABS: Glucose,Whole Blood 126 mg/dL (75-99)
[2021-06-20] MEDS: FUROSEMIDE 10 MG/ML 10 ML VIAL IV SCH (20:48)
[2021-06-21] MEDS: ARTIFICIAL TEARS-HYPROMELLOSE DROPS 15 ML BTL BOTH EYES SCH ×6 (00:45→20:21)
[2021-06-21] MEDS: CISATRACURIUM 200 MG in SODIUM CHLORIDE 0.9% 180 ML IV SCH ×2 (01:30→16:44)
[2021-06-21] MEDS: METOCLOPRAMIDE 5 MG/ML 2 ML VIAL IVP SCH ×3 (04:31→20:18)
[2021-06-21] MEDS: fentaNYL (PF). 1,000 MCG in SODIUM CHLORIDE 0.9% 80 ML IV SCH ×2 (04:32→16:42)
[2021-06-21 05:32] LABS: Basophils % (A) 0 %; Eosinophils % (A) 0 %; HCT 28.6 % (39.0-53.0); HGB 9.3 gm/dL (13.0-17.5); Lymphocytes # (A) 0.4 k/uL (1.0-4.8); Lymphocytes % (A) 4 %; MCH 29.6 pg (25.0-35.0); MCHC 32.4 g/dL (31.0-37.0); MCV 91.4 fL (80.0-100.0); Mean Platelet Volume 9.2; Monocytes # (A) 0.2 k/uL (0-1.0); Monocytes % (A) 2 %; Neutrophils # (A) 9.8 k/uL (1.3-7.7); Neutrophils % (A) 94 %; Platelet Count 49 k/uL (150-450); RBC 3.13 m/uL (4.30-5.90); WBC 10.5 k/uL (3.8-10.6)
[2021-06-21 05:52] LABS: Albumin 2.1 g/dL (3.5-5.0); C Reactive Protein 3.8 mg/dL (<1.0); Calcium 7.7 mg/dL (8.4-10.2); Total Bilirubin 0.6 mg/dL (0.2-1.3); Total Protein 4.5 g/dL (6.3-8.2)
[2021-06-21 05:55] LABS: ABG Base Excess -4.7 mmol/L; ABG HCO3 22 mmol/L (21-25); ABG Oxygen Saturation 93.1 % (94-97); ABG PCO2 42 mmHg (35-45); ABG PH 7.32 (7.35-7.45); ABG PO2 66 mmHg (83-108); ABG TCO2 23 mmol/L (19-24)
[2021-06-21 06:07] LABS: Glucose,Whole Blood 96 mg/dL (75-99)
[2021-06-21 06:12] LABS: Allen Test Performed? no
--- NOTE | 2021-06-21 06:15 | PN ---
PROGRESS NOTE DATE OF SERVICE: 06/20/2021 REASON FOR FOLLOWUP: Pneumonia. INTERVAL HISTORY: The patient remains to be intubated on the vent. The patient is hemodynamically stable not on pressor support. FiO2 is currently stable at 50%. No significant purulent secretions through the ET or diarrhea or any other changes reported by nursing staff. PHYSICAL EXAMINATION: Blood pressure 124/76, pulse of 93, temperature 97.3. He is 96% on 50% FiO2. General description is an elderly male lying in bed in no distress. Respiratory system: Unlabored breathing. Diminished breath sounds. No wheeze. Heart S1, S2. Regular rate and rhythm. Abdomen soft, no tenderness. LABS: Hemoglobin is 9.8, white count 9.9, BUN of 99, creatinine 5.23. Procalcitonin 1310. DIAGNOSTIC IMPRESSION AND PLAN: Patient with acute respiratory failure which is multifactorial in this patient who did have Covid 19 pneumonia with progressive worsening of his clinical condition, possible component of secondary bacterial pneumonia. The patient did have elevated procalcitonin. The patient is covered cefepime, did have worsening of his kidney function. Did get dialysis catheter. Prognosis remains to be guarded and will monitor closely. MMODL / IJN: [id number] /
--- NOTE | 2021-06-21 07:10 | XR ---
EXAMINATION TYPE: XR chest 1V portable DATE OF EXAM: 06/21/2021 COMPARISON: 06/20/2021 HISTORY: Cough TECHNIQUE: Single frontal view of the chest is obtained. FINDINGS: Bilateral subcutaneous emphysema has progressed from prior exam. ET tube satisfactory. NG tube courses below the diaphragm. Left subclavian CVC tip lower SVC. Heart borderline enlarged. Diffu se interstitial opacities persist. Patchy retrocardiac and left basilar opacity. Possible small left pleural effusion. No appreciable pneumothorax. IMPRESSION: Stable diffuse subcutaneous emphysema and bilateral infiltrates. No sizable pneumothorax identified. Less than 5% tiny apical pneumothorax on the left not entirely excluded.
[2021-06-21] MEDS: FUROSEMIDE 10 MG/ML 10 ML VIAL IV SCH ×2 (08:23→20:19)
[2021-06-21] MEDS: PANTOPRAZOLE 40 MG/10 ML VIAL IVP SCH ×2 (08:25→20:20)
[2021-06-21] MEDS: DEXAMETHASONE SOD PHOSPHATE 10 MG/ML 1 ML VIAL IV SCH (08:26)
[2021-06-21] MEDS: CEFEPIME 1 GM in SODIUM CHLORIDE 0.9% 50 ML IVPB SCH ×2 (08:26→20:19)
[2021-06-21] MEDS: CHLORHEXIDINE GLUCONATE 15 ML CUP MUCOUS MEM SCH ×2 (08:27→20:19)
[2021-06-21] MEDS: SENNOSIDES 8.6 MG TAB PO SCH ×2 (08:39→20:19)
[2021-06-21] MEDS: FLUCONAZOLE 100 MG TAB PO SCH (08:39)
[2021-06-21] MEDS: AMIODARONE 200 MG TAB PO SCH ×2 (08:39→20:19)
[2021-06-21] MEDS: ZINC SULFATE 220 MG CAP PO SCH (08:39)
[2021-06-21] MEDS: CYANOCOBALAMIN 500 MCG TAB PO SCH (08:39)
[2021-06-21] MEDS: ASCORBIC ACID 500 MG TAB PO SCH (08:39)
[2021-06-21] MEDS: CHOLECALCIFEROL 25 MCG (1000 IU) TABLET PO SCH (08:39)
[2021-06-21] MEDS: APIXABAN 5 MG TAB PO SCH ×2 (08:41→20:19)
--- NOTE | 2021-06-21 09:03 | P.PN ---
Subjective Progress Note Date: 06/20/21 This is a 75-year-old male who was recently admitted with COVID-19 infection with acute hypoxic respiratory failure and is being closely monitored. Pulmonary following closely and patient is maintained on dexamethasone along with Lovenox and vitamin and zinc supplements. Patient currently maintained on 15 L high flow via nasal cannula with supplemental use of 15 L nonrebreather. Patient states his breathing is slightly improved and not requiring a nonrebreather as often. Instructed the patient to use incentive spirometer and increase activity as tolerated. Patient continues to be extremely weak and will have PT/OT evaluate the patient once more stable. 06/06/2021 Patient is seen in follow-up this morning states his shortness of breath has slightly worsened and his recovery time and working to breathe has become more difficult. Patient is continued on 15 L high flow along with nonrebreather intermittently and having to use it more frequently today he states. Incentive spirometer at the bedside and instructed the patient to continue to use at least 10 times every hour while awake and encouraged increased activity as tolerated. Patient states he walked to the bathroom with assistance and became extremely dyspneic. Patient is afebrile. D-dimer is 4.72 with a WBC of 16 and hemoglobin is stable at 15.4. Sodium is 138 with a potassium of 4.5 and current creatinine is 0.63. LDH is elevated at 2492 and CRP is 6.5. Chest x-ray today shows findings consistent with COVID-19 pneumonia with bilateral interstitial and airspace disease present. 06/07/2021 Patient is seen and evaluated in follow up this morning and is having increasing shortness of breath and on 15L high flow via NC and 15 L non-rebreather. Patient has been back in bed and attempting position changes frequently along with prone position. Patient continues on lovenox, baracitinib, vitamin and zinc supplement s,and steroids. Pulmonary following closely. 06/10/2021 Patient is seen in follow up this morning and is now maintained on airvo at 60% and continues to be extremely dyspneic with minimal exertion. Patient also continues with 15L Non rebreather as needed. Patient is maintained on lovenox along with baricitinib and IV steroids with pulmonary following. Patient states he has no reserve and taking longer periods of time to recover with attempting to position change or use the urinal. 06/11/2021 Patient is seen in follow-up and evaluated this morning and is continued on Airvo and maintaining oxygen saturations in the low 90s. Pulmonary following closely. Patient is afebrile. Patient is continued on vitamin and zinc supplements along with Baricitinib and subcutaneous Lovenox along with IV steroids and will continue. Patient's d-dimer today is elevated at 18.25 and will increase Lovenox to 50 subcu twice daily. White blood count today is 18.6 and hemoglobin is stable at 13.7, sodium is 139 with a potassium of 4.3 current creatinine is 0.7. Inflammatory markers are elevated with some trending down and CRP is 1.5, LDH is 1968 and alk phos is 168. Patient is afebrile. Patient continues to be extremely anxious and will continue Xanax as needed. Encouraged increase activity as tolerated and continued position changes with incentive spirometer use. 06/12/2021 Patient is seen in follow-up this morning with no acute issues noted overnight. Patient continues on Airvo with a flow rate of 55 and FiO2 of 80% maintaining oxygen saturations above 90%. Pulmonary following closely and we'll continue to wean as tolerated. Patient continues on Lovenox twice daily along with vitamin and zinc supplements and continued on IV steroids along with albuterol and Baricitinib. White blood count is 23.7 with a hemoglobin of 14.1, sodium is 139 with a potassium of 4.4 and current creatinine is 0.62. Will repeat chest x-ray along with inflammatory markers in the morning. 06/13/2021 Patient is seen and evaluated in follow-up as morning and continues to be on Airvo. Patient appears to be more raspy with some sputum and congested today with a hoarse voice. Infectious disease and pulmonary following closely. Sputum culture from 06/02 just today preliminary showing gram-negative bacilli along with Essence albicans and patient is being started on IV cefepime with repeat sputum culture ordered along with oral Diflucan. White blood count is 23.5 with hemoglobin of 13.8, sodium is 137 and potassium is 5.5 and current creatinine is 0.55. LFTs are mildly elevated. Repeat d-dimer along with CRP and LDH have been ordered. Will repeat a.m. labs. Chest x-ray today shows con tinued peripheral and lower lung interstitial infiltrates of Covid pneumonia without significant change. 06/14/2021 Patient is seen and evaluated in follow-up this morning continues to be dyspneic and requesting to go to the bed as he has been sitting up in the chair all day. Patient has been started on Diflucan along with IV cefepime and sputum culture from 06/02/2021 resulted showing Pseudomonas aeruginosa along with Essence albicans. Infectious disease is following closely. Patient is completing Baricitinib and will be transitioned to oral prednisone taper with pulmonary following closely. Patient has been started on eliquis. D-dimer today has trended down to 11.02, LDH is 2178, CRP is 3.2, liver functions trending down. White blood count slightly trending down at 20.2 and hemoglobin is stable at 13.7, sodium is 136 with a potassium of 4.3 and current creatinine is 0.57. Continues to have a mildly raspy voice with some throat dryness and will add Cepacol. 06/15/2021 Patient evaluated in bed and is resting on the BiPAP in the intensive care unit, he had desaturated this morning will be moved to the bathroom and initially was on a 15L HF, however is now requiring BiPAP. Patient was started on a Precedex drip. Repeat chest x-ray today which revealed persistent multifocal and confluent bilateral reticulonodular opacities is consistent with known coronary infection more prominent in the lower lungs. Patient finished a course of therapy with Baricitinib and transitioned to oral prednisone. Labs reviewed today include a white blood cell count 21.2, hemoglobin of 12.5. Blood gases show a pO2 of 32 and O2 saturation of 50.3. Chloride is 110, CO2 20, sodium 137, potassium 4. LDH is worse today at 2277, alk phos 158, CRP is trending upwards of 4.6. Patient has remained afebrile, heart rate is now 83, respirations 32, blood pressure 124/68. Oxygen saturation is maintaining in the mid to high 80s on 100% BiPAP. Patient is nothing by mouth and oral medications are unable to be given. Patient is on IV cefepime for a sputum culture positive for Pseudomonas. He is IV Diflucan for oral candidiasis that was improving as of yesterday. 06/16/2021 Patient is evaluated in the intensive care unit, he is status post intubation and has NG tube in place. Labs reviewed today included white blood cell, 44.2, d-dimer greater than 34. ABGs from the A-line included a pH of 7.15, pCO2 of 71, total CO2 is 27 and oxygen saturation of 98. Bicarb is 25 and his pO2 is 107. Additional labs include a serum potassium 5.1, chloride of 109, BUN of 27, creatinine 1.06. Vital signs include a heart rate of 123 tachycardia, respiratory rate of 36, blood pressure 100/50, he is 98% oxygen saturation. Patient is on vasopressors for his blood pressure. Repeat blood cultures are negative. Patient is receiving propofol for sedation. His chest x-ray was reviewed which is showing bilateral pulmonary infiltrates demonstrating COVID- 19 pneumonia with ARDS. Patient is still getting IV cefepime for a sputum culture Pseudomonas although his pro calcitonin level is 0.03 which is not usually indicative of a bacterial infection. Additional inflammatory markers remain elevated. Patient did receive 2 L saline bolus. Repeat labs in the morning, prognosis is guarded for this patient. 06/17/2021 Patient is seen in follow-up continues to be monitored closely in the ICU with multiple medical consultations following. Prognosis is extremely guarded. Patient's respiratory status significantly worsened requiring mechanical ventilation and intubation and currently patient is sedated. White blood count is worsened at 26.1 and hemoglobin is 12.2, d-dimer is 27.06, ABG is 7.16 pH with a pCO2 of 57 and a pO2 of 68 and bicarb is 20, sodium is 140 with a potassium of 5.0 and current creatinine has worsened at 2.29 pro calcitonin is 24.40. 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 Patient continues on cefepime along with eliquis, vitamin and zinc supplements and patient has finished Baricitinib. Patient was on oral Decadron and is being transitioned back to IV dexamethasone along with Diflucan. Patient was given a dose of IV Lasix and nephrology has been consulted. Cardiology consulted as well and patient is currently on amiodarone drip along with Cleviprex and currently sedated on propofol. Patient also has norepinephrine drip as well. Patient being started on sodium bicarb drip. Patient also has low-grade fevers. 06/18/2021 Patient is seen in follow up in the ICU and maintained on mechanical vent intubated and sedated. Patient continues on NImbex, sodium bicarb, amiodarone, and being started on fentanyl as IV lasix drip with multiple medical consultations following. Kidney functions continue to deteriorate with nephrology following closely. Discussion being had about possible hemodialysis if kidney functions continue to worsen. Creatinine currently 3.69 today. 06/19/2021 Patient remains on mechanical vent with minimal urine output note and extensive volume overload with worsening kidney functions and would like to proceed with hemodialysis catheter placement with nephrology following closely. Multiple consultations following and Dr. Mann consulted for hemodialysis catheter placement and will hold eliquis. Amiodarone being transitioned to oral with cardiology following closely. Continue close monitoring in the ICU. Overall Prognosis remains extremely poor and guarded. 06/20/2021 Patient is seen and evaluated in follow-up continue to be closely monitored with multiple medical consultations following in the ICU. Patient remains intubated on mechanical ventilation and sedated. Kidney functions continue to worsen and patient is an extensive volume overload and has received dialysis catheter today and will initiate hemodialysis. Patient was maintained on IV Lasix drip which is being transitioned to IV push Lasix twice daily with nephrology following closely. Patient also continues on IV cefepime along with dexamethasone, vitamin and zinc supplements and continues on eliquis as well. White blood count 11.9 and hemoglobin is 9.6, platelets are 61 and d-dimer is 8.40. Sodium is 135 with a potassium of 5.0 and current BUN is 99 with a creatinine of 5.23. LDH is 1015 and pro calcitonin is 13.10. Prognosis remains extremely guarded. Review of systems: Unable to complete a full review of symptoms as patient is sedated and on a ventilator. Active Medications Acetaminophen (Acetaminophen Tab 325 Mg Tab) 650 mg PO Q6HR PRN PRN Reason: Fever and/ or Mild Pain Last Admin: 06/14/21 22:22 Dose: 650 mg Documented by: Albuterol Sulfate (Albuterol Hfa Inhaler) 2 puff INHALATION RT-QID [facility] Last Admin: 06/20/21 19:41 Dose: 2 puff Documented by: Albuterol Sulfate (Albuterol Hfa Inhaler) 2 puff INHALATION RT-QID PRN PRN Reason: Shortness Of Breath Or Wheezing Last Admin: 06/15/21 03:30 Dose: 2 puff Documented by: Amiodarone HCl (Amiodarone 200 Mg Tab) 200 mg PO BID [facility] Last Admin: 06/21/21 08:39 Dose: 200 mg Documented by: Apixaban (Apixaban 5 Mg Tab) 5 mg PO BID [facility]; Protocol Last Admin: 06/21/21 08:41 Dose: 5 mg Documented by: Artificial Tears (Artificial Tears-Hypromellose Drops 15 Ml Btl) 2 drops BOTH EYES Q4HR [facility] Last Admin: 06/21/21 04:31 Dose: 2 drops Documented by: Ascorbic Acid (Ascorbic Acid 500 Mg Tab) 500 mg PO DAILY [facility] Last Admin: 06/21/21 08:39 Dose: 500 mg Documented by: Benzocaine/Menthol (Benzocaine/Menthol Lozeng 1 Each Lozenge) 1 each MUCOUS MEM Q4HR PRN PRN Reason: Sore Throat Chlorhexidine Gluconate (Chlorhexidine Gluconate 15 Ml Cup) 15 ml MUCOUS MEM BID [facility] Last Admin: 06/21/21 08:27 Dose: 15 ml Documented by: Cholecalciferol (Cholecalciferol 25 Mcg (1000 Iu) Tablet) 25 mcg PO DAILY [facility] Last Admin: 06/21/21 08:39 Dose: 25 mcg Documented by: Cyanocobalamin (Cyanocobalamin 500 Mcg Tab) 1,000 mcg PO DAILY [facility] Last Admin: 06/21/21 08:39 Dose: 1,000 mcg Documented by: Dexamethasone Sodium Phosphate (Dexamethasone Sod Phosphate 10 Mg/Ml 1 Ml Vial) 6 mg IV DAILY [facility] Last Admin: 06/21/21 08:26 Dose: 6 mg Documented by: Fluconazole (Fluconazole 100 Mg Tab) 100 mg PO DAILY [facility] Last Admin: 06/21/21 08:39 Dose: 100 mg Documented by: Furosemide (Furosemide 10 Mg/Ml 10 Ml Vial) 60 mg IV Q12HR [facility] Last Admin: 06/21/21 08:23 Dose: 60 mg Documented by: Propofol 1,000 mg/ IV Solution 100 mls @ 0 mls/hr IV .Q0M [facility]; Protocol Last Admin: 06/21/21 07:53 Dose: 50 mcg/kg/min, 37.44 mls/hr Documented by: Norepinephrine Bitartrate 8 mg (/ Sodium Chloride) 258 mls @ 9.482 mls/hr IV .Q24H [facility]; Protocol Last Admin: 06/20/21 16:41 Dose: Not Given Documented by: Cisatracurium Besylate 200 mg/ (Sodium Chloride) 200 mls @ 5.88 mls/hr IV .Q24H [facility]; Protocol Last Admin: 06/21/21 01:30 Dose: 2 mcg/kg/min, 11.76 mls/hr Documented by: Cefepime HCl 1 gm/ Sodium (Chloride) 50 mls @ 12.5 mls/hr IVPB Q12HR [facility] Last Admin: 06/21/21 08:26 Dose: 12.5 mls/hr Documented by: Fentanyl Citrate 1,000 mcg/ (Sodium Chloride) 100 mls @ 2.765 mls/hr IV .Q24H [facility]; Protocol Last Titration: 06/21/21 08:07 Dose: 0.6 mcg/kg/hr, 6.636 mls/hr Documented by: Metoclopramide HCl (Metoclopramide 5 Mg/Ml 2 Ml Vial) 5 mg IVP Q8H [facility] Last Admin: 06/21/21 04:31 Dose: 5 mg Documented by: Pantoprazole Sodium (Pantoprazole 40 Mg/10 Ml Vial) 40 mg IVP BID [facility] Last Admin: 06/21/21 08:25 Dose: 40 mg Documented by: Senna (Sennosides 8.6 Mg Tab) 8.6 mg PO BID [facility] Last Admin: 06/21/21 08:39 Dose: 8.6 mg Documented by: Zinc Sulfate (Zinc Sulfate 220 Mg Cap) 220 mg PO DAILY [facility] Last Admin: 06/21/21 08:39 Dose: 220 mg Documented by: Physical exam: Gen: This is a 75-year-old male sedated and intubated on propofol and mechanical ventilation HEENT: Head is atraumatic, normocephalic. Pupils equal, round. Sclerae is anicteric. NECK: Supple. No JVD. No lymphadenopathy. No thyromegaly. LUNGS: Diminished breath sounds bilaterally with scattered coarse rhonchi and crackles noted. No intercostal retractions. HEART: Irregular S1, S2 are muffled ABDOMEN: Soft. obese. Bowel sounds are present. No masses. No guarding or rigidity noted. EXTREMITIES: Extensive pitting edema noted of upper and lower bilateral extremities and much of the body. NEUROLOGICAL: Patient is intubated and sedated Assessment: Acute COVID-19 infection with acute component of interstitial pneumonia, bilateral with acute hypoxic respiratory failure and possible sepsis secondary to COVID-19 Status post mechanical ventilation and intubation secondary to above acute renal failure likely ATN with worsening kidney functions and minimal urine output and continued on IV lasix with continued minimal output and has received dialysis catheter today and will initiate hemodialysis with nephrology following closely volume overload secondary to ARF and maintained on IV lasix with minimal urine output and now will be started on hemodialysis metabolic acidosis and was recently on sodium bicarb drip which has been discontinued afib with RVR currently rate controlled and transitioned to oral amiodarone, cardiology following Lactic acidosis secondary to above Initial sputum culture showing Essence albicans and pseudomonas aeruginosa and maintained on IV cefepime, infectious disease following closely Oral candidiasis started on Diflucan, sputum cultures from 06/02/2021 Essence albicans Extensive interstitial bilateral COVID-19 pneumonia Elevated white blood count possibly secondary to above Possible subsegmental pulmonary embolism ruled out History of atrial fibrillation Anxiety Remote history of nicotine dependence GI prophylaxis: Protonix DVT prophylaxis: On eliquis which was resumed after dialysis catheter placement Full code Plan: Recommend to continue with current medications and continue to closely monitor in the ICU. Patient remains on mechanical ventilation and has received hemodialysis catheter and will be initiating hemodialysis with nephrology following closely. Patient resumedn eliquis 5 mg twice a day as it was placed on hold briefly for hemodialysis catheter placement. Discussed with Mariajose about CODE STATUS and overall prognosis and wishes to remain full code. Prognosis is extremely poor and guarded and will continue to monitor closely. Repeat labs and cxr in the am. Objective - Vital Signs Vital signs: Vital Signs Temp 97.6 F 06/20/21 08:00 Pulse 85 06/20/21 08:00 Resp 36 H 06/20/21 08:00 BP 116/74 06/19/21 23:00 Pulse Ox 97 06/20/21 08:00 Intake & Output 06/19/21 06/20/21 06/20/21 18:59 06:59 18:59 Intake Total 2025.433 1020.478 236.227 Output Total 355 1550 130 Balance 1670.433 -529.522 106.227 Weight 119 kg 124.8 kg Intake: IV 686 386 69 0.9 80 240 60 Cefepime 2 gm In Sodium 100 Chloride 0.9% 100 ml @ 25 mls/hr IVPB Q8HR [facility] Rx# :[id number] Furosemide 100 mg In 120 10 Sodium Chloride 0.9% 90 ml @ 10 MG/HR 10 mls/hr IV .Q10H [facility] Rx#: [id number] Pressure bag 36 36 9 Sodium Chloride 0.45% 1, 450 000 ml @ 150 mls/hr IV . Q7H20M [facility] with Sodium Bicarb (1 Meq/ml) 100 ml Rx#:[id number] Intake, IV Titration 889.433 544.478 167.227 Amount Amiodarone 450 mg In 250 Dextrose 5% in Water 250 ml @ 0.5 MG/MIN 16.667 mls/hr IV .Q15H [facility] Rx#: [id number] Cisatracurium 200 mg In 170.814 167.227 Sodium Chloride 0.9% 180 ml @ 1 MCG/KG/MIN 5.88 mls/hr IV .Q24H [facility] Rx#: [id number] Furosemide 100 mg In 100 159.5 Sodium Chloride 0.9% 90 ml @ 10 MG/HR 10 mls/hr IV .Q10H [facility] Rx#: [id number] fentaNYL (PF). 1,000 mcg 78.480 84.978 In Sodium Chloride 0.9% 80 ml @ 0.25 MCG/KG/HR 2. 765 mls/hr IV .Q24H [facility] Rx#:[id number] propofoL 1,000 mg In 290.139 300 Empty Bag 1 bag @ Titrate IV .Q0M [facility] Rx#: [id number] Tube Feeding 360 60 0 Other 90 30 Output: Gastric Drainage 1220 Urine 355 330 130 Other: Voiding Method Indwelling Catheter Indwelling Catheter ABP, PAP, CO, CI - Last Documented Arterial Blood Pressure 138/62 - Labs CBC & Chem 7: 06/21/21 04:16 06/21/21 04:16 Labs: Abnormal Lab Results - Last 24 Hours (Table) 06/19/21 06/19/21 06/19/21 Range/Units 03:25 03:25 18:54 WBC (3.8-10.6) k/uL RBC (4.30-5.90) m/uL Hgb (13.0-17.5) gm/dL Hct (39.0-53.0) % Plt Count (150-450) k/uL Neutrophils # (1.3-7.7) k/uL Lymphocytes # (1.0-4.8) k/uL D-Dimer (<0.60) mg/L FEU ABG pH (7.35-7.45) ABG pO2 (83-108) mmHg Sodium (137-145) mmol/L Carbon Dioxide (22-30) mmol/L BUN (9-20) mg/dL Creatinine (0.66-1.25) mg/dL Glucose (74-99) mg/dL POC Glucose (mg/dL) 137 H (75-99) mg/dL Calcium (8.4-10.2) mg/dL Lactate Dehydrogenase (313-618) U/L Procalcitonin 17.60 H (0.02-0.09) ng/mL Hep Bs Antibody NonReactive A (Nonreactive) 06/19/21 06/20/21 06/20/21 Range/Units 23:58 03:45 03:45 WBC 11.9 H (3.8-10.6) k/uL RBC 3.23 L (4.30-5.90) m/uL Hgb 9.6 L (13.0-17.5) gm/dL Hct 29.7 L (39.0-53.0) % Plt Count 61 L (150-450) k/uL Neutrophils # 11.1 H (1.3-7.7) k/uL Lymphocytes # 0.4 L (1.0-4.8) k/uL D-Dimer 8.40 H (<0.60) mg/L FEU ABG pH (7.35-7.45) ABG pO2 (83-108) mmHg Sodium (137-145) mmol/L Carbon Dioxide (22-30) mmol/L BUN (9-20) mg/dL Creatinine (0.66-1.25) mg/dL Glucose (74-99) mg/dL POC Glucose (mg/dL) 127 H (75-99) mg/dL Calcium (8.4-10.2) mg/dL Lactate Dehydrogenase (313-618) U/L Procalcitonin (0.02-0.09) ng/mL Hep Bs Antibody (Nonreactive) 06/20/21 06/20/21 06/20/21 Range/Units 03:45 04:48 05:59 WBC (3.8-10.6) k/uL RBC (4.30-5.90) m/uL Hgb (13.0-17.5) gm/dL Hct (39.0-53.0) % Plt Count (150-450) k/uL Neutrophils # (1.3-7.7) k/uL Lymphocytes # (1.0-4.8) k/uL D-Dimer (<0.60) mg/L FEU ABG pH 7.29 L (7.35-7.45) ABG pO2 77 L (83-108) mmHg Sodium 135 L (137-145) mmol/L Carbon Dioxide 21 L (22-30) mmol/L BUN 99 H (9-20) mg/dL Creatinine 5.23 H (0.66-1.25) mg/dL Glucose 115 H (74-99) mg/dL POC Glucose (mg/dL) 120 H (75-99) mg/dL Calcium 7.4 L (8.4-10.2) mg/dL Lactate Dehydrogenase 1015 H (313-618) U/L Procalcitonin (0.02-0.09) ng/mL Hep Bs Antibody (Nonreactive)
[2021-06-21] MEDS: ALBUTEROL HFA INHALER INHALATION SCH ×4 (11:42→21:17)
[2021-06-21 11:44] LABS: Glucose,Whole Blood 96 mg/dL (75-99)
--- NOTE | 2021-06-21 11:53 | PN ---
PROGRESS NOTE Patient is seen for followup for acute kidney injury. Currently patient is being dialyzed. Case is discussed with nursing staff. Urine output is now on the lower side at 15 to 20 mL/hours. Patient was started on dialysis yesterday on 06/20/2021. He had his first treatment, mostly for fluid overload and worsening renal failure in the setting of COVID pneumonia. On examination today, vital signs are reviewed. Blood pressure 112/55, heart rate 97 per minute. He is afebrile. Case is discussed with nursing staff. SPA HOST exam cannot be assessed, as he is sedated. Labs are reviewed. Sodium 134, potassium 5.0, BUN 91, creatinine 5.0, hemoglobin 9.3 g/dL. ASSESSMENT: 1. Acute kidney injury, acute tubular necrosis, secondary to sepsis, hypotension, COVID infection, currently hemodialysis-dependent; started on dialysis on 06/20/2021. Patient is having his second treatment today. We will dialyze him again tomorrow. 2. Severe volume overload. Continue daily UF of about 2 L and increase to about 3 L as tolerated. Blood pressure is stable; in fact, slightly on the higher side now. 3. Acute hypoxic respiratory failure secondary to COVID pneumonia and volume overload. 4. Atrial fibrillation with rapid ventricular response, maintained on oral amiodarone. 5. Metabolic acidosis, now improved. PLAN: Repeat hemodialysis in a.m. Goal UF 2-3 L as tolerated. Continue IV push Lasix at 60 mg q.12 hours. MMODL / IJN: [id number] /
[2021-06-21] MEDS ORDERED: bisacodyL 10 MG SUPP RECTAL ONE (12:00)
[2021-06-21] MEDS ORDERED: METOPROLOL SUCCINATE (ER) 25 MG TAB.ER.24H PO SCH (13:00)
--- NOTE | 2021-06-21 13:10 | P.PN ---
Subjective Progress Note Date: 06/21/21 Principal diagnosis: COVID-19 pneumonia The patient is seen today 06/19/2021 in follow-up in the intensive care unit. He remains intubated and on the mechanical ventilator. Current settings are assist-control rate of 36, tidal volume 430, FiO2 50% and a PEEP of 14. Morning blood gases revealed a pO2 of 60, pCO2 of 51, pH 7.27. He remains sedated on propofol at 50 mcg/kg/m, paralyzed with Nimbex at 1.5 mcg/kg/m. He is on fentanyl at 0.5 mcg/kg/hr. Amiodarone drip at 0.5 mg/m. Lasix drip at 10 mg per hour. D5W with 3 A of sodium bicarbonate 150 MLS per hour. Remains on cefepime and Diflucan. Anticoagulated with Eliquis. He remains on Decadron 6 mg IV daily. Vitamin supplements. Chest x-ray continues to show few scattered lung infiltrates. Stable compared to previous. Left central line in place. Endotracheal tube and gastric tubes in good position. Sputum culture from 06/02/2021 was positive for pseudomonas aeruginosa and Essence. Follow up cultures reveal no growth. Blood cultures reveal no growth. White count 16.0. Hemoglobin 10.4. Platelet count 71,000. Lymphocytes 0.4. D-dimer 10.4 seconds. Sodium 135. Potassium 4.4. Bicarb 22. BUN 75. Creatinine 4.63. LDH 1095. Blood glucose 151. The patient is seen today 06/20/2021, the intensive care unit. He remains intubated and on mechanical ventilator. Current mode of assist control with a respiratory rate of 36, tidal volume 450, FiO2 55% and a PEEP of 16. Morning blood gases on 60% FiO2 revealed a PaO2 of 77, pCO2 45, pH 7.29. Peak airway pressures 38, plateau pressure 36. He remains on fentanyl at 0.5 mcg/kg per hour, Lasix drip at 10 mg per hour, propofol at 50 mcg/g/m, Nimbex at 2mcg/kg/min. 0.9 normal saline at 10 MLS per hour. He remains on cefepime and Diflucan. He is currently in atrial fibrillation with controlled ventricular rate. Chest x-ray continues to show diffuse bilateral interstitial airspace disease. More focal left basilar consolidation also persists. Small left pleural effusion. No appreciable pneumothorax. Increasing subcutaneous emphys ingris at the base of the left neck and along the chest bilaterally. Follow-up sputum culture revealed no growth. Blood cultures reveal no growth. White count 11.9. Hemoglobin 9.6. Platelet count 61,000. Lymphocytes 0.4. D-dimer 8.4. Sodium 135. Potassium 5.0. Bicarb 21. Creatinine 5.23. BUN 99. Glucose 115. LDH 1015. He is continued on Decadron, and Eliquis, vitamin supplements. He is to receive a hemodialysis catheter today. Tube feedings currently on hold due to high residuals. Patient seen today 06/21/2021 in follow-up in the intensive care unit. He remains intubated and on mechanical ventilator. Current settings assist-control mode, respiratory rate 36, tidal volume 450, FiO2 50% and a PEEP of 16. Morning blood gases reveal a pO2 of 66, pCO2 42, pH 7.32. Chest x-ray continues to show bilateral patchy opacities along with subcutaneous emphysema which is a bit worse. 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 No clear evidence of pneumothorax. He did receive hemodialysis yesterday with 1 L removed. Plan is for hemodialysis again today. He remains in atrial fibrillation. Anticoagulated with Eliquis. Remains on antibiotics in the form of cefepime. He is also sedated on propofol 50 mcg/kg/m, paralyzed and Nimbex at 2 mcg/kg/m, fentanyl 5 mcg/mg/h. Initial sputum culture was positive for Pseudomonas and Essence. Follow-up sputum culture reveals no growth. Culture reveals no growth. White count 10.5. Hemoglobin 9.6. Platelet count 49,000. D-dimer 8.41. Sodium 134. Potassium 5.0. BUN 91. Creatinine 5.06. Glucose 94. LDH 842. C-reactive protein 3.8. Remains on Decadron. IV diuretics. Vitamin supplements. Objective - Vital Signs Vital signs: Vital Signs Temp 97.7 F 06/21/21 12:32 Pulse 107 H 06/21/21 12:32 Resp 25 H 06/21/21 12:32 BP 132/55 06/21/21 12:32 Pulse Ox 96 06/21/21 12:32 Intake & Output 06/20/21 06/21/21 06/21/21 18:59 06:59 18:59 Intake Total 739.486 949.865 341.632 Output Total 925 1632 2065 Balance -185.514 -682.135 -1723.368 Weight 123.3 kg Intake: IV 276 299 92 0.9 240 260 80 Pressure bag 36 39 12 Intake, IV Titration 463.486 590.865 239.632 Amount Cisatracurium 200 mg In 167.227 190.865 Sodium Chloride 0.9% 180 ml @ 1 MCG/KG/MIN 5.88 mls/hr IV .Q24H [facility] Rx#: [id number] fentaNYL (PF). 1,000 mcg 96.259 100.000 39.632 In Sodium Chloride 0.9% 80 ml @ 0.25 MCG/KG/HR 2. 765 mls/hr IV .Q24H [facility] Rx#:[id number] propofoL 1,000 mg In 200 300 200 Empty Bag 1 bag @ Titrate IV .Q0M [facility] Rx#: [id number] Tube Feeding 0 10 Other 60 Output: Gastric Drainage 450 200 Urine 475 432 65 Hemodialysis 1000 2000 Other: Voiding Method Indwelling Catheter Indwelling Catheter Indwelling Catheter # Bowel Movements 1 ABP, PAP, CO, CI - Last Documented Arterial Blood Pressure 142/55 - Exam 75-year-old male patient who is currently intubated on a mechanical ventilator. Orogastric and orotracheal tube are both in place. The patient is sedated. The patient is paralyzed. HEENT examination is grossly unremarkable. Neck supple. Full range of motion. No adenopathy thyromegaly or neck vein distention. Some left neck and chest subcutaneous emphysema noted. Cardiovascular examination reveals irregular rhythm rate. S1-S2 normal. No S3 or S4. No discernible murmur noted. . Heart sounds are distant. Lungs reveal coarse bilateral rhonchi. Crackles in the posterior bases left greater than right. Breath sounds equal bilaterally. Abdomen soft bowel sounds are heard. No masses or tenderness. Extremities are intact. No cyanosis clubbing or edema. Skin is without rash or lesion Neurologic examination suboptimal as the patient is currently sedated and paralyzed. - Labs CBC & Chem 7: 06/21/21 04:16 06/21/21 04:16 Labs: Abnormal Lab Results - Last 24 Hours (Table) 06/20/21 06/20/21 06/21/21 Range/Units 03:45 17:47 04:16 RBC 3.13 L (4.30-5.90) m/uL Hgb 9.3 L (13.0-17.5) gm/dL Hct 28.6 L (39.0-53.0) % Plt Count 49 L (150-450) k/uL Neutrophils # 9.8 H (1.3-7.7) k/uL Lymphocytes # 0.4 L (1.0-4.8) k/uL D-Dimer (<0.60) mg/L FEU ABG pH (7.35-7.45) ABG pO2 (83-108) mmHg ABG O2 Saturation (94-97) % Sodium (137-145) mmol/L BUN (9-20) mg/dL Creatinine (0.66-1.25) mg/dL POC Glucose (mg/dL) 126 H (75-99) mg/dL Calcium (8.4-10.2) mg/dL Lactate Dehydrogenase (313-618) U/L C-Reactive Protein (<1.0) mg/dL Total Protein (6.3-8.2) g/dL Albumin (3.5-5.0) g/dL Procalcitonin 13.10 H (0.02-0.09) ng/mL 06/21/21 06/21/21 06/21/21 Range/Units 04:16 04:16 05:44 RBC (4.30-5.90) m/uL Hgb (13.0-17.5) gm/dL Hct (39.0-53.0) % Plt Count (150-450) k/uL Neutrophils # (1.3-7.7) k/uL Lymphocytes # (1.0-4.8) k/uL D-Dimer 8.41 H (<0.60) mg/L FEU ABG pH 7.32 L (7.35-7.45) ABG pO2 66 L (83-108) mmHg ABG O2 Saturation 93.1 L (94-97) % Sodium 134 L (137-145) mmol/L BUN 91 H (9-20) mg/dL Creatinine 5.06 H (0.66-1.25) mg/dL POC Glucose (mg/dL) (75-99) mg/dL Calcium 7.7 L (8.4-10.2) mg/dL Lactate Dehydrogenase 842 H (313-618) U/L C-Reactive Protein 3.8 H (<1.0) mg/dL Total Protein 4.5 L (6.3-8.2) g/dL Albumin 2.1 L (3.5-5.0) g/dL Procalcitonin (0.02-0.09) ng/mL Assessment and Plan Assessment: 1 Acute hypoxemic respiratory failure secondary to coronavirus associated pneumonia. Unvaccinated. The patient had developed diffuse bilateral pulmonary infiltrates secondary to COVID-19 related pneumonia/ARDS. Subsequently the patient failed BiPAP therapy and he was intubated on 06/15/2021, currently sedated and paralyzed on a mechanical ventilator. Chest x-ray was noted. Subcutaneous emphysema noted. 2 Acute COVID-19 related pneumonia with diffuse but the pulmonary infiltrates and diffuse groundglass pulmonary changes 3 Elevated inflammatory markers secondary to above 4 Acute renal failure with creatinine up to 5.23, GFR 10. Renal replacement therapy started 06/20/2021 5 History of chronic atrial fibrillation with recent RVR. On oral amiodarone. Eliquis for anticoagulation. 6 Elevated pro calcitonin, currently on cefepime 7 Pseudomonas and yeast in the sputum, likely secondary to immunosuppression provided by Solu-Medrol and Baricitinib. Follow-up sputum culture revealed no growth. 8 Extensive oropharyngeal candidiasis, currently on Diflucan 9 Leukocytosis 10 Hypotension. Recovered and off pressors currently Plan: The patient was seen and evaluated by Dr. Santana Chest x-ray, ABGs and labs reviewed Decrease PEEP to 14 Plan is for hemodialysis again today therapy Tube feeds to resume at 10 MLS per hour and titrate as tolerated Dulcolax for bowel movement Continued on Decadron, Eliquis, vitamin supplements Overall prognosis is quite guarded We'll continue to follow and make further recommendations based on his clinical status Critical care time 37 minutes I, the cosigning physician, performed a history & physical examination of the patient. Lungs sounds . The posterior bases, bilateral scattered rhonchi. Maintaining O2 saturations in the 90s on 50% FiO2 with a PEEP of 14 via the mechanical ventilator. I discussed the assessment and plan of care with my nurse practitioner, Mar Ruelas. I attest to the above note as dictated by her.
[2021-06-21] MEDS: METOPROLOL TARTRATE 25 MG TAB PO SCH (13:20)
[2021-06-21] MEDS: NOREPINEPHRINE 8 MG in SODIUM CHLORIDE 0.9% 250 ML IV SCH (15:14)
--- NOTE | 2021-06-21 17:40 | PN ---
PROGRESS NOTE DATE OF SERVICE: 06/21/2021 REASON FOR FOLLOWUP: Pneumonia. INTERVAL HISTORY: The patient is afebrile. The patient is hemodynamically stable. The patient remains to be intubated on the vent. FiO2 is currently stable at 50%. No significant purulent secretions thru the ET, diarrhea or any other changes reported by nursing staff. PHYSICAL EXAMINATION: Blood pressure 142/55, pulse of 95. Temperature 97. He is 91% on 50% FiO2. General description is an elderly male lying in bed in no distress. Respiratory system: Unlabored breathing. Diminished breath sounds. No wheeze. Heart S1, S2. Regular rate and rhythm. Abdomen soft, no tenderness. LABS: Hemoglobin 9.1, white count 10.5. BUN of 21, creatinine 5.06. DIAGNOSTIC IMPRESSION AND PLAN: Patient with acute respiratory failure which is multifactorial in this patient who did have Covid 19 pneumonia and component of secondary bacterial pneumonia. Previous sputum was positive for Pseudomonas. Patient white count normalized with Cefepime that will be continued for now and monitor clinical course closely. Continue supportive care. MMODL / IJN: [id number] /
[2021-06-21 18:02] LABS: Glucose,Whole Blood 109 mg/dL (75-99)
[2021-06-22 00:04] LABS: Glucose,Whole Blood 96 mg/dL (75-99)
[2021-06-22] MEDS: ARTIFICIAL TEARS-HYPROMELLOSE DROPS 15 ML BTL BOTH EYES SCH ×6 (00:52→21:35)
--- NOTE | 2021-06-22 04:27 | P.PN ---
Subjective Progress Note Date: 06/21/21 This is a 75-year-old male who was recently admitted with COVID-19 infection with acute hypoxic respiratory failure and is being closely monitored. Pulmonary following closely and patient is maintained on dexamethasone along with Lovenox and vitamin and zinc supplements. Patient currently maintained on 15 L high flow via nasal cannula with supplemental use of 15 L nonrebreather. Patient states his breathing is slightly improved and not requiring a nonrebreather as often. Instructed the patient to use incentive spirometer and increase activity as tolerated. Patient continues to be extremely weak and will have PT/OT evaluate the patient once more stable. 06/06/2021 Patient is seen in follow-up this morning states his shortness of breath has slightly worsened and his recovery time and working to breathe has become more difficult. Patient is continued on 15 L high flow along with nonrebreather intermittently and having to use it more frequently today he states. Incentive spirometer at the bedside and instructed the patient to continue to use at least 10 times every hour while awake and encouraged increased activity as tolerated. Patient states he walked to the bathroom with assistance and became extremely dyspneic. Patient is afebrile. D-dimer is 4.72 with a WBC of 16 and hemoglobin is stable at 15.4. Sodium is 138 with a potassium of 4.5 and current creatinine is 0.63. LDH is elevated at 2492 and CRP is 6.5. Chest x-ray today shows findings consistent with COVID-19 pneumonia with bilateral interstitial and airspace disease present. 06/07/2021 Patient is seen and evaluated in follow up this morning and is having increasing shortness of breath and on 15L high flow via NC and 15 L non-rebreather. Patient has been back in bed and attempting position changes frequently along with prone position. Patient continues on lovenox, baracitinib, vitamin and zinc supplement s,and steroids. Pulmonary following closely. 06/10/2021 Patient is seen in follow up this morning and is now maintained on airvo at 60% and continues to be extremely dyspneic with minimal exertion. Patient also continues with 15L Non rebreather as needed. Patient is maintained on lovenox along with baricitinib and IV steroids with pulmonary following. Patient states he has no reserve and taking longer periods of time to recover with attempting to position change or use the urinal. 06/11/2021 Patient is seen in follow-up and evaluated this morning and is continued on Airvo and maintaining oxygen saturations in the low 90s. Pulmonary following closely. Patient is afebrile. Patient is continued on vitamin and zinc supplements along with Baricitinib and subcutaneous Lovenox along with IV steroids and will continue. Patient's d-dimer today is elevated at 18.25 and will increase Lovenox to 50 subcu twice daily. White blood count today is 18.6 and hemoglobin is stable at 13.7, sodium is 139 with a potassium of 4.3 current creatinine is 0.7. Inflammatory markers are elevated with some trending down and CRP is 1.5, LDH is 1968 and alk phos is 168. Patient is afebrile. Patient continues to be extremely anxious and will continue Xanax as needed. Encouraged increase activity as tolerated and continued position changes with incentive spirometer use. 06/12/2021 Patient is seen in follow-up this morning with no acute issues noted overnight. Patient continues on Airvo with a flow rate of 55 and FiO2 of 80% maintaining oxygen saturations above 90%. Pulmonary following closely and we'll continue to wean as tolerated. Patient continues on Lovenox twice daily along with vitamin and zinc supplements and continued on IV steroids along with albuterol and Baricitinib. White blood count is 23.7 with a hemoglobin of 14.1, sodium is 139 with a potassium of 4.4 and current creatinine is 0.62. Will repeat chest x-ray along with inflammatory markers in the morning. 06/13/2021 Patient is seen and evaluated in follow-up as morning and continues to be on Airvo. Patient appears to be more raspy with some sputum and congested today with a hoarse voice. Infectious disease and pulmonary following closely. Sputum culture from 06/02 just today preliminary showing gram-negative bacilli along with Essence albicans and patient is being started on IV cefepime with repeat sputum culture ordered along with oral Diflucan. White blood count is 23.5 with hemoglobin of 13.8, sodium is 137 and potassium is 5.5 and current creatinine is 0.55. LFTs are mildly elevated. Repeat d-dimer along with CRP and LDH have been ordered. Will repeat a.m. labs. Chest x-ray today shows con tinued peripheral and lower lung interstitial infiltrates of Covid pneumonia without significant change. 06/14/2021 Patient is seen and evaluated in follow-up this morning continues to be dyspneic and requesting to go to the bed as he has been sitting up in the chair all day. Patient has been started on Diflucan along with IV cefepime and sputum culture from 06/02/2021 resulted showing Pseudomonas aeruginosa along with Essence albicans. Infectious disease is following closely. Patient is completing Baricitinib and will be transitioned to oral prednisone taper with pulmonary following closely. Patient has been started on eliquis. D-dimer today has trended down to 11.02, LDH is 2178, CRP is 3.2, liver functions trending down. White blood count slightly trending down at 20.2 and hemoglobin is stable at 13.7, sodium is 136 with a potassium of 4.3 and current creatinine is 0.57. Continues to have a mildly raspy voice with some throat dryness and will add Cepacol. 06/15/2021 Patient evaluated in bed and is resting on the BiPAP in the intensive care unit, he had desaturated this morning will be moved to the bathroom and initially was on a 15L HF, however is now requiring BiPAP. Patient was started on a Precedex drip. Repeat chest x-ray today which revealed persistent multifocal and confluent bilateral reticulonodular opacities is consistent with known coronary infection more prominent in the lower lungs. Patient finished a course of therapy with Baricitinib and transitioned to oral prednisone. Labs reviewed today include a white blood cell count 21.2, hemoglobin of 12.5. Blood gases show a pO2 of 32 and O2 saturation of 50.3. Chloride is 110, CO2 20, sodium 137, potassium 4. LDH is worse today at 2277, alk phos 158, CRP is trending upwards of 4.6. Patient has remained afebrile, heart rate is now 83, respirations 32, blood pressure 124/68. Oxygen saturation is maintaining in the mid to high 80s on 100% BiPAP. Patient is nothing by mouth and oral medications are unable to be given. Patient is on IV cefepime for a sputum culture positive for Pseudomonas. He is IV Diflucan for oral candidiasis that was improving as of yesterday. 06/16/2021 Patient is evaluated in the intensive care unit, he is status post intubation and has NG tube in place. Labs reviewed today included white blood cell, 44.2, d-dimer greater than 34. ABGs from the A-line included a pH of 7.15, pCO2 of 71, total CO2 is 27 and oxygen saturation of 98. Bicarb is 25 and his pO2 is 107. Additional labs include a serum potassium 5.1, chloride of 109, BUN of 27, creatinine 1.06. Vital signs include a heart rate of 123 tachycardia, respiratory rate of 36, blood pressure 100/50, he is 98% oxygen saturation. Patient is on vasopressors for his blood pressure. Repeat blood cultures are negative. Patient is receiving propofol for sedation. His chest x-ray was reviewed which is showing bilateral pulmonary infiltrates demonstrating COVID- 19 pneumonia with ARDS. Patient is still getting IV cefepime for a sputum culture Pseudomonas although his pro calcitonin level is 0.03 which is not usually indicative of a bacterial infection. Additional inflammatory markers remain elevated. Patient did receive 2 L saline bolus. Repeat labs in the morning, prognosis is guarded for this patient. 06/17/2021 Patient is seen in follow-up continues to be monitored closely in the ICU with multiple medical consultations following. Prognosis is extremely guarded. Patient's respiratory status significantly worsened requiring mechanical ventilation and intubation and currently patient is sedated. White blood count is worsened at 26.1 and hemoglobin is 12.2, d-dimer is 27.06, ABG is 7.16 pH with a pCO2 of 57 and a pO2 of 68 and bicarb is 20, sodium is 140 with a potassium of 5.0 and current creatinine has worsened at 2.29 pro calcitonin is 24.40. Infectious disease along with pulmonary contract specialist following closely. Patient continues on cefepime along with eliquis, vitamin and zinc supplements and patient has finished Baricitinib. Patient was on oral Decadron and is being transitioned back to IV dexamethasone along with Diflucan. Patient was given a dose of IV Lasix and nephrology has been consulted. Cardiology consulted as well and patient is currently on amiodarone drip along with Cleviprex and currently sedated on propofol. Patient also has norepinephrine drip as well. Patient being started on sodium bicarb drip. Patient also has low-grade fevers. 06/18/2021 Patient is seen in follow up in the ICU and maintained on mechanical vent intubated and sedated. Patient continues on NImbex, sodium bicarb, amiodarone, and being started on fentanyl as IV lasix drip with multiple medical consultations following. Kidney functions continue to deteriorate with nephrology following closely. Discussion being had about possible hemodialysis if kidney functions continue to worsen. Creatinine currently 3.69 today. 06/19/2021 Patient remains on mechanical vent with minimal urine output note and extensive volume overload with worsening kidney functions and would like to proceed with hemodialysis catheter placement with nephrology following closely. Multiple consultations following and Dr. Mann consulted for hemodialysis catheter placement and will hold eliquis. Amiodarone being transitioned to oral with cardiology following closely. Continue close monitoring in the ICU. Overall Prognosis remains extremely poor and guarded. 06/20/2021 Patient is seen and evaluated in follow-up continue to be closely monitored with multiple medical consultations following in the ICU. Patient remains intubated on mechanical ventilation and sedated. Kidney functions continue to worsen and patient is an extensive volume overload and has received dialysis catheter today and will initiate hemodialysis. Patient was maintained on IV Lasix drip which is being transitioned to IV push Lasix twice daily with nephrology following closely. Patient also continues on IV cefepime along with dexamethasone, vitamin and zinc supplements and continues on eliquis as well. White blood count 11.9 and hemoglobin is 9.6, platelets are 61 and d-dimer is 8.40. Sodium is 135 with a potassium of 5.0 and current BUN is 99 with a creatinine of 5.23. LDH is 1015 and pro calcitonin is 13.10. Prognosis remains extremely guarded. 06/21/2021 Patient is evaluated in follow up this morning and continues to be monitored closely in the ICU. On mechanical vent with an FI02 of 50%. Currently receiving hemodialysis and will likely require daily treatments if tolerated for extensive overload. Patient continues on IV lasix twice daily along with Nimbex, propofol, and fentanyl. Chest xray done today. Patient continues on IV cefepime with most recent repeat sputum culture revealing no growth. Infectious disease following closely. Labs: Sodium is 134, potassium is 5.0, BUN 91, creatinine is 5.06, LDH 842, CRP 3.8, D-dimer is 8.41, WBC 10.5, hemoglobin is 9.3, platelets 49 Review of systems: Unable to complete a full review of symptoms as patient is sedated and on a ventilator. Active Medications Acetaminophen (Acetaminophen Tab 325 Mg Tab) 650 mg PO Q6HR PRN PRN Reason: Fever and/ or Mild Pain Last Admin: 06/14/21 22:22 Dose: 650 mg Documented by: Albuterol Sulfate (Albuterol Hfa Inhaler) 2 puff INHALATION RT-QID [facility] Last Admin: 06/20/21 19:41 Dose: 2 puff Documented by: Albuterol Sulfate (Albuterol Hfa Inhaler) 2 puff INHALATION RT-QID PRN PRN Reason: Shortness Of Breath Or Wheezing Last Admin: 06/15/21 03:30 Dose: 2 puff Documented by: Amiodarone HCl (Amiodarone 200 Mg Tab) 200 mg PO BID [facility] Last Admin: 06/21/21 08:39 Dose: 200 mg Documented by: Apixaban (Apixaban 5 Mg Tab) 5 mg PO BID [facility]; Protocol Last Admin: 06/21/21 08:41 Dose: 5 mg Documented by: Artificial Tears (Artificial Tears-Hypromellose Drops 15 Ml Btl) 2 drops BOTH EYES Q4HR [facility] Last Admin: 06/21/21 04:31 Dose: 2 drops Documented by: Ascorbic Acid (Ascorbic Acid 500 Mg Tab) 500 mg PO DAILY [facility] Last Admin: 06/21/21 08:39 Dose: 500 mg Documented by: Benzocaine/Menthol (Benzocaine/Menthol Lozeng 1 Each Lozenge) 1 each MUCOUS MEM Q4HR PRN PRN Reason: Sore Throat Chlorhexidine Gluconate (Chlorhexidine Gluconate 15 Ml Cup) 15 ml MUCOUS MEM BID [facility] Last Admin: 06/21/21 08:27 Dose: 15 ml Documented by: Cholecalciferol (Cholecalciferol 25 Mcg (1000 Iu) Tablet) 25 mcg PO DAILY [facility] Last Admin: 06/21/21 08:39 Dose: 25 mcg Documented by: Cyanocobalamin (Cyanocobalamin 500 Mcg Tab) 1,000 mcg PO DAILY [facility] Last Admin: 06/21/21 08:39 Dose: 1,000 mcg Documented by: Dexamethasone Sodium Phosphate (Dexamethasone Sod Phosphate 10 Mg/Ml 1 Ml Vial) 6 mg IV DAILY [facility] Last Admin: 06/21/21 08:26 Dose: 6 mg Documented by: Fluconazole (Fluconazole 100 Mg Tab) 100 mg PO DAILY [facility] Last Admin: 06/21/21 08:39 Dose: 100 mg Documented by: Furosemide (Furosemide 10 Mg/Ml 10 Ml Vial) 60 mg IV Q12HR [facility] Last Admin: 06/21/21 08:23 Dose: 60 mg Documented by: Propofol 1,000 mg/ IV Solution 100 mls @ 0 mls/hr IV .Q0M [facility]; Protocol Last Admin: 06/21/21 07:53 Dose: 50 mcg/kg/min, 37.44 mls/hr Documented by: Norepinephrine Bitartrate 8 mg (/ Sodium Chloride) 258 mls @ 9.482 mls/hr IV .Q24H [facility]; Protocol Last Admin: 06/20/21 16:41 Dose: Not Given Documented by: Cisatracurium Besylate 200 mg/ (Sodium Chloride) 200 mls @ 5.88 mls/hr IV .Q24H [facility]; Protocol Last Admin: 06/21/21 01:30 Dose: 2 mcg/kg/min, 11.76 mls/hr Documented by: Cefepime HCl 1 gm/ Sodium (Chloride) 50 mls @ 12.5 mls/hr IVPB Q12HR [facility] Last Admin: 06/21/21 08:26 Dose: 12.5 mls/hr Documented by: Fentanyl Citrate 1,000 mcg/ (Sodium Chloride) 100 mls @ 2.765 mls/hr IV .Q24H [facility]; Protocol Last Titration: 06/21/21 08:07 Dose: 0.6 mcg/kg/hr, 6.636 mls/hr Documented by: Metoclopramide HCl (Metoclopramide 5 Mg/Ml 2 Ml Vial) 5 mg IVP Q8H [facility] Last Admin: 06/21/21 04:31 Dose: 5 mg Documented by: Pantoprazole Sodium (Pantoprazole 40 Mg/10 Ml Vial) 40 mg IVP BID [facility] Last Admin: 06/21/21 08:25 Dose: 40 mg Documented by: Senna (Sennosides 8.6 Mg Tab) 8.6 mg PO BID [facility] Last Admin: 06/21/21 08:39 Dose: 8.6 mg Documented by: Zinc Sulfate (Zinc Sulfate 220 Mg Cap) 220 mg PO DAILY [facility] Last Admin: 06/21/21 08:39 Dose: 220 mg Documented by: Physical exam: Gen: This is a 75-year-old male sedated and intubated on propofol and mechanical ventilation. Temp is 97.5, pulse is 69, resp are 36, blood pressure is 108/66, and pulse ox is 93% with an FI02 of 50% HEENT: Head is atraumatic, normocephalic. Pupils equal, round. Sclerae is anicteric. NECK: Supple. No JVD. No lymphadenopathy. No thyromegaly. LUNGS: Diminished breath sounds bilaterally with scattered coarse rhonchi and crackles noted. Extensive subcutaneous emphysema noted. HEART: Irregular S1, S2 are muffled ABDOMEN: Soft. obese. Bowel sounds are present. No masses. No guarding or rigidity noted. EXTREMITIES: Extensive pitting edema noted of upper and lower bilateral extremities and much of the body. NEUROLOGICAL: Patient is intubated and sedated Assessment: Acute COVID-19 infection with acute component of interstitial pneumonia, bilateral with acute hypoxic respiratory failure and possible sepsis secondary to COVID-19 Status post mechanical ventilation and intubation after failed BIPAP on 06/15/2021 secondary to above Subcutaneous emphysema acute renal failure likely ATN with worsening kidney functions and minimal urine output requiring hemodialysis volume overload secondary to ARF metabolic acidosis afib with RVR currently rate controlled on oral amiodarone and metoprolol Lactic acidosis secondary to above Initial sputum culture showing Essence albicans and pseudomonas aeruginosa and maintained on IV cefepime Oral candidiasis started on Diflucan, sputum cultures from 06/02/2021 Essence albicans Extensive interstitial bilateral COVID-19 pneumonia Elevated white blood count possibly secondary to above Possible subsegmental pulmonary embolism ruled out History of atrial fibrillation Anxiety Remote history of nicotine dependence GI prophylaxis: Protonix DVT prophylaxis: On eliquis Full code Plan: Recommend to continue with current medications and continue to closely monitor in the ICU. Patient remains on mechanical ventilation and has received hemodialysis catheter and currently receiving hemodialysis with nephrology following closely. Patient continues on IV cefepime with ID following closely as well. Patient remains on eliquis 5 mg twice a day, vitamin and zinc supplements IV dexamethasone and will continue. Patient has completed Baricitinib. Patient with extensive volume overload will likely require daily hemodialysis with nephrology following closely. Chest xray shows stable diffuse subcut emphysema and bilateral infiltrates with no sizable pneumothorax noted, possible less than 5% pneumothorax noted on the left is not excluded. Prognosis is extremely guarded and will continue to monitor closely. Repeat labs and cxr in the am. Objective - Vital Signs Vital signs: Vital Signs Temp 97.5 F L 06/21/21 08:00 Pulse 69 06/21/21 08:00 Resp 36 H 06/21/21 08:00 BP 108/66 06/21/21 08:00 Pulse Ox 93 L 06/21/21 08:00 Intake & Output 06/20/21 06/21/21 06/21/21 18:59 06:59 18:59 Intake Total 739.486 949.865 162.632 Output Total 925 1632 15 Balance -185.514 -682.135 147.632 Weight 123.3 kg Intake: IV 276 299 23 0.9 240 260 20 Pressure bag 36 39 3 Intake, IV Titration 463.486 590.865 139.632 Amount Cisatracurium 200 mg In 167.227 190.865 Sodium Chloride 0.9% 180 ml @ 1 MCG/KG/MIN 5.88 mls/hr IV .Q24H [facility] Rx#: [id number] fentaNYL (PF). 1,000 mcg 96.259 100.000 39.632 In Sodium Chloride 0.9% 80 ml @ 0.25 MCG/KG/HR 2. 765 mls/hr IV .Q24H [facility] Rx#:[id number] propofoL 1,000 mg In 200 300 100 Empty Bag 1 bag @ Titrate IV .Q0M [facility] Rx#: [id number] Tube Feeding 0 Other 60 Output: Gastric Drainage 450 200 Urine 475 432 15 Hemodialysis 1000 Other: Voiding Method Indwelling Catheter Indwelling Catheter ABP, PAP, CO, CI - Last Documented Arterial Blood Pressure 105/52 - Labs CBC & Chem 7: 06/21/21 04:16 06/21/21 04:16 Labs: Abnormal Lab Results - Last 24 Hours (Table) 06/20/21 06/20/21 06/20/21 Range/Units 03:45 11:32 17:47 RBC (4.30-5.90) m/uL Hgb (13.0-17.5) gm/dL Hct (39.0-53.0) % Plt Count (150-450) k/uL Neutrophils # (1.3-7.7) k/uL Lymphocytes # (1.0-4.8) k/uL D-Dimer (<0.60) mg/L FEU ABG pH (7.35-7.45) ABG pO2 (83-108) mmHg ABG O2 Saturation (94-97) % Sodium (137-145) mmol/L BUN (9-20) mg/dL Creatinine (0.66-1.25) mg/dL POC Glucose (mg/dL) 110 H 126 H (75-99) mg/dL Calcium (8.4-10.2) mg/dL Lactate Dehydrogenase (313-618) U/L C-Reactive Protein (<1.0) mg/dL Total Protein (6.3-8.2) g/dL Albumin (3.5-5.0) g/dL Procalcitonin 13.10 H (0.02-0.09) ng/mL 06/21/21 06/21/21 06/21/21 Range/Units 04:16 04:16 04:16 RBC 3.13 L (4.30-5.90) m/uL Hgb 9.3 L (13.0-17.5) gm/dL Hct 28.6 L (39.0-53.0) % Plt Count 49 L (150-450) k/uL Neutrophils # 9.8 H (1.3-7.7) k/uL Lymphocytes # 0.4 L (1.0-4.8) k/uL D-Dimer 8.41 H (<0.60) mg/L FEU ABG pH (7.35-7.45) ABG pO2 (83-108) mmHg ABG O2 Saturation (94-97) % Sodium 134 L (137-145) mmol/L BUN 91 H (9-20) mg/dL Creatinine 5.06 H (0.66-1.25) mg/dL POC Glucose (mg/dL) (75-99) mg/dL Calcium 7.7 L (8.4-10.2) mg/dL Lactate Dehydrogenase 842 H (313-618) U/L C-Reactive Protein 3.8 H (<1.0) mg/dL Total Protein 4.5 L (6.3-8.2) g/dL Albumin 2.1 L (3.5-5.0) g/dL Procalcitonin (0.02-0.09) ng/mL 10/08/21 Range/Units 05:44 RBC (4.30-5.90) m/uL Hgb (13.0-17.5) gm/dL Hct (39.0-53.0) % Plt Count (150-450) k/uL Neutrophils # (1.3-7.7) k/uL Lymphocytes # (1.0-4.8) k/uL D-Dimer (<0.60) mg/L FEU ABG pH 7.32 L (7.35-7.45) ABG pO2 66 L (83-108) mmHg ABG O2 Saturation 93.1 L (94-97) % Sodium (137-145) mmol/L BUN (9-20) mg/dL Creatinine (0.66-1.25) mg/dL POC Glucose (mg/dL) (75-99) mg/dL Calcium (8.4-10.2) mg/dL Lactate Dehydrogenase (313-618) U/L C-Reactive Protein (<1.0) mg/dL Total Protein (6.3-8.2) g/dL Albumin (3.5-5.0) g/dL Procalcitonin (0.02-0.09) ng/mL
[2021-06-22] MEDS: METOCLOPRAMIDE 5 MG/ML 2 ML VIAL IVP SCH ×3 (04:36→21:34)
[2021-06-22 04:52] LABS: Basophils % (A) 0 %; Eosinophils # (A) 0.2 k/uL (0-0.7); Eosinophils % (A) 1 %; HCT 27.1 % (39.0-53.0); HGB 8.9 gm/dL (13.0-17.5); Lymphocytes # (A) 0.6 k/uL (1.0-4.8); Lymphocytes % (A) 4 %; MCH 28.9 pg (25.0-35.0); MCHC 32.9 g/dL (31.0-37.0); MCV 87.9 fL (80.0-100.0); Mean Platelet Volume 10.1; Monocytes # (A) 0.2 k/uL (0-1.0); Monocytes % (A) 1 %; Neutrophils % (A) 93 %; Platelet Count 48 k/uL (150-450); RBC 3.08 m/uL (4.30-5.90); RDW 14.4 % (11.5-15.5)
[2021-06-22 05:05] LABS: C Reactive Protein 5.8 mg/dL (<1.0); Calcium 7.7 mg/dL (8.4-10.2); Potassium 4.5 mmol/L (3.5-5.1)
[2021-06-22 05:30] LABS: ABG HCO3 21 mmol/L (21-25); ABG Oxygen Saturation 88.1 % (94-97); ABG PCO2 43 mmHg (35-45); ABG TCO2 23 mmol/L (19-24); Allen Test Performed? Yes
[2021-06-22 05:53] LABS: ABG PO2 56 mmHg (83-108)
[2021-06-22] MEDS: fentaNYL (PF). 1,000 MCG in SODIUM CHLORIDE 0.9% 80 ML IV SCH ×2 (06:16→21:56)
--- NOTE | 2021-06-22 07:26 | XR ---
EXAMINATION TYPE: XR chest 1V portable DATE OF EXAM: 06/22/2021 COMPARISON: Chest x-ray 06/21/2021 HISTORY: Abnormal chest x-ray, intubated TECHNIQUE: Single frontal view of the chest is obtained. FINDINGS: Endotracheal tube, NG tube, left subclavian central venous catheter, overlying artifacts a re again noted. Bilateral airspace disease is present. There are changes of diffuse subcutaneous emph ysema as on prior. Cardiac mediastinal silhouette is stable. No evident pneumothorax or sizable pleur al effusion. IMPRESSION: Correlate for pneumonia, ARDS, congestive heart failure felt to be less likely. Subcutan eous emphysema is extensive.
--- NOTE | 2021-06-22 08:03 | P.PN ---
Subjective Patient is seen in follow-up for acute kidney injury, currently hemodialysis dependent. Urine output 15-20 mL an hour. Tolerated 2 L ultrafiltration yesterday. Intubated. On 55% FiO2. Blood pressure stable. Vital signs are stable. General: Intubated. HEENT: Head exam is unremarkable. Heart rate stable. Exam discussed with the nurse. Objective - Vital Signs Vital signs: Vital Signs Temp 98 F 06/22/21 04:00 Pulse 117 H 06/22/21 07:00 Resp 36 H 06/22/21 07:00 BP 118/72 06/22/21 07:00 Pulse Ox 95 06/22/21 07:00 Intake & Output 06/21/21 06/22/21 06/22/21 18:59 06:59 18:59 Intake Total 1038.735 809.028 Output Total 2170 275 Balance -1131.265 534.028 Weight 123.3 kg 119.6 kg Intake: IV 253 299 0.9 220 260 Pressure bag 33 39 Intake, IV Titration 675.735 290.028 Amount Cisatracurium 200 mg In 179.144 Sodium Chloride 0.9% 180 ml @ 1 MCG/KG/MIN 5.88 mls/hr IV .Q24H [facility] Rx#: [id number] fentaNYL (PF). 1,000 mcg 96.591 90.028 In Sodium Chloride 0.9% 80 ml @ 0.25 MCG/KG/HR 2. 765 mls/hr IV .Q24H [facility] Rx#:[id number] propofoL 1,000 mg In 400 200 Empty Bag 1 bag @ Titrate IV .Q0M [facility] Rx#: [id number] Tube Feeding 80 130 Other 30 90 Output: Urine 170 275 Hemodialysis 2000 Other: Voiding Method Indwelling Catheter Indwelling Catheter # Bowel Movements 1 ABP, PAP, CO, CI - Last Documented Arterial Blood Pressure 118/52 - Labs CBC & Chem 7: 06/22/21 04:29 06/22/21 04:29 Labs: Abnormal Lab Results - Last 24 Hours (Table) 06/21/21 06/22/21 06/22/21 Range/Units 18:01 04:29 04:29 WBC 14.0 H (3.8-10.6) k/uL RBC 3.08 L (4.30-5.90) m/uL Hgb 8.9 L (13.0-17.5) gm/dL Hct 27.1 L (39.0-53.0) % Plt Count 48 L (150-450) k/uL Neutrophils # 13.0 H (1.3-7.7) k/uL Lymphocytes # 0.6 L (1.0-4.8) k/uL D-Dimer 11.73 H (<0.60) mg/L FEU ABG pH (7.35-7.45) ABG pO2 (83-108) mmHg ABG O2 Saturation (94-97) % Sodium (137-145) mmol/L Carbon Dioxide (22-30) mmol/L BUN (9-20) mg/dL Creatinine (0.66-1.25) mg/dL POC Glucose (mg/dL) 109 H (75-99) mg/dL Calcium (8.4-10.2) mg/dL Lactate Dehydrogenase (313-618) U/L C-Reactive Protein (<1.0) mg/dL 06/22/21 06/22/21 Range/Units 04:29 05:24 WBC (3.8-10.6) k/uL RBC (4.30-5.90) m/uL Hgb (13.0-17.5) gm/dL Hct (39.0-53.0) % Plt Count (150-450) k/uL Neutrophils # (1.3-7.7) k/uL Lymphocytes # (1.0-4.8) k/uL D-Dimer (<0.60) mg/L FEU ABG pH 7.30 L (7.35-7.45) ABG pO2 56 L* (83-108) mmHg ABG O2 Saturation 88.1 L (94-97) % Sodium 134 L (137-145) mmol/L Carbon Dioxide 20 L (22-30) mmol/L BUN 79 H (9-20) mg/dL Creatinine 4.65 H (0.66-1.25) mg/dL POC Glucose (mg/dL) (75-99) mg/dL Calcium 7.7 L (8.4-10.2) mg/dL Lactate Dehydrogenase 783 H (313-618) U/L C-Reactive Protein 5.8 H (<1.0) mg/dL Assessment and Plan Plan: Assessment: 1. Acute kidney injury secondary to ATN secondary to sepsis/covid-19 infection. Baseline creatinine is near 1. Currently hemodialysis dependent. Right femoral catheter placed June 20. Urine output 15-20 mL an hour. 2. Volume overload. 3. Acute hypoxic respiratory failure secondary to covid-19 pneumonia and volume overload. 4. A. fib with RVR maintained on oral amiodarone. 5. Metabolic acidosis secondary to acute kidney injury. Plan: Hemodialysis today with goal 2-2-1/2 L ultrafiltration. Maintain IV Lasix. Continue to monitor renal function and urine output.
[2021-06-22] MEDS: SENNOSIDES-DOCUSATE SODIUM 1 EACH TAB PO SCH (08:16)
[2021-06-22] MEDS: AMIODARONE 200 MG TAB PO SCH ×2 (08:16→21:34)
[2021-06-22] MEDS: CYANOCOBALAMIN 500 MCG TAB PO SCH (08:16)
[2021-06-22] MEDS: ASCORBIC ACID 500 MG TAB PO SCH (08:16)
[2021-06-22] MEDS: ZINC SULFATE 220 MG CAP PO SCH (08:17)
[2021-06-22] MEDS: CHLORHEXIDINE GLUCONATE 15 ML CUP MUCOUS MEM SCH ×2 (08:17→21:34)
[2021-06-22] MEDS: CHOLECALCIFEROL 25 MCG (1000 IU) TABLET PO SCH (08:17)
[2021-06-22] MEDS: bisacodyL 10 MG SUPP RECTAL SCH (08:17)
[2021-06-22] MEDS: SENNOSIDES 8.6 MG TAB PO SCH (08:17)
[2021-06-22] MEDS: PANTOPRAZOLE 40 MG/10 ML VIAL IVP SCH ×2 (08:18→21:34)
[2021-06-22] MEDS: FUROSEMIDE 10 MG/ML 10 ML VIAL IV SCH ×3 (08:18→21:35)
[2021-06-22] MEDS: DEXAMETHASONE SOD PHOSPHATE 10 MG/ML 1 ML VIAL IV SCH (08:18)
[2021-06-22] MEDS: ALBUTEROL HFA INHALER INHALATION SCH ×4 (08:52→21:50)
[2021-06-22] MEDS: CISATRACURIUM 200 MG in SODIUM CHLORIDE 0.9% 180 ML IV SCH (09:27)
[2021-06-22 11:32] LABS: Glucose,Whole Blood 141 mg/dL (75-99)
[2021-06-22] MEDS: FLUCONAZOLE 100 MG TAB PO SCH (11:36)
[2021-06-22] MEDS: APIXABAN 5 MG TAB PO SCH ×2 (11:36→21:34)
[2021-06-22] MEDS: CEFEPIME 1 GM in SODIUM CHLORIDE 0.9% 50 ML IVPB SCH ×2 (11:36→21:34)
--- NOTE | 2021-06-22 13:38 | P.PN ---
Subjective Progress Note Date: 06/22/21 Principal diagnosis: COVID-19 pneumonia On June 22, 2021, patient is seen in follow-up in intensive care unit, patient remains intubated, sedated and paralyzed on mechanical ventilator, on assist-control mode of ventilation with a rate at 36, tidal volumes 450, FiO2 55% and PEEP of 14, this morning's blood gas shows pO2 of 56, pCO2 43, and pH of 7.30, this was done and FiO2 of 50% and subsequently FiO2 has been increased to 55%, his pulse ox is 94-96%. Patient is currently 0.9 normal saline every 20 ML per hour, fentanyl infusion at 0.6 mics per kilo per hour, Diprivan is a 50 mics per kilo per minute, Nimbex is currently at 2 mics per kilo per minute. He is on tube feedings with vital AF at 10 ML per hour, trickle feedings have been started yesterday, residuals have not been checked, patient has been on IV Reglan, 5 mg every 8 hours, he is receiving Senokot-S, abdomen is soft, bowel sounds are hypoactive, patient has not passed a bowel movement yet, however he is been tolerating tube feedings at a low rate. He remains on Eliquis, remains in atrial fibrillation with a controlled rate. Patient is currently on dexamethasone 6 mg daily, is on IV Lasix 60 mg twice daily, and he has been getting daily hemodialysis treatments. Yesterday he had hemodialysis would removal of 2 L of fluid, today 2-1/2 L of fluid was removed. Patient is in -1.8 L over the last 24 hours. Today's chest x-ray shows diffuse subcutaneous emphysema. Subcutaneous emphysema was noted to be extensive. Today's white blood cell count is 14.0, hemoglobin is 8.9, d-dimer is 11.73, sodium is 134, potassium is 4.5, chloride is 105, CO2 is 20, B1 of 79, creatinine of 4.6, LDH is 783, and CRP is 5.8. Patient remains on combination of Diflucan and cefepime, his pro calcitonin level was improving and was down to 13.1 on 06/20/2021. Repeat sputum culture has been sent, initial sputum culture from 06/02/2021 showed pseudomonas aeruginosa and Essence albicans. Objective - Vital Signs Vital signs: Vital Signs Temp 97.5 F L 06/22/21 12:00 Pulse 81 06/22/21 12:00 Resp 36 H 06/22/21 12:00 BP 103/54 06/22/21 11:18 Pulse Ox 88 L 06/22/21 12:00 Intake & Output 06/21/21 06/22/21 06/22/21 18:59 06:59 18:59 Intake Total 1038.735 809.028 721.588 Output Total 2170 275 2545 Balance -1131.265 534.028 -1823.412 Weight 123.3 kg 119.6 kg Intake: IV 253 299 215 0.9 220 260 100 Cefepime 2 gm In Sodium 100 Chloride 0.9% 100 ml @ 25 mls/hr IVPB Q8HR [facility] Rx# :[id number] Pressure bag 33 39 15 Intake, IV Titration 675.735 290.028 396.588 Amount Cisatracurium 200 mg In 179.144 196.588 Sodium Chloride 0.9% 180 ml @ 1 MCG/KG/MIN 5.88 mls/hr IV .Q24H [facility] Rx#: [id number] fentaNYL (PF). 1,000 mcg 96.591 90.028 In Sodium Chloride 0.9% 80 ml @ 0.25 MCG/KG/HR 2. 765 mls/hr IV .Q24H [facility] Rx#:[id number] propofoL 1,000 mg In 400 200 200 Empty Bag 1 bag @ Titrate IV .Q0M [facility] Rx#: [id number] Tube Feeding 80 130 50 Other 30 90 60 Output: Urine 170 275 45 Hemodialysis 2000 2500 Other: Voiding Method Indwelling Catheter Indwelling Catheter Indwelling Catheter # Bowel Movements 1 ABP, PAP, CO, CI - Last Documented Arterial Blood Pressure 113/50 - Exam GENERAL EXAM: Intubated, sedated and paralyzed, 75-year-old white male, on assist-control mode of ventilation, with FiO2 of 50% and PEEP of 14 comfortable in no apparent distress. HEAD: Normocephalic/atraumatic. EYES: Normal reaction of pupils, equal size. Conjunctiva pink, sclera white. NOSE: Clear with pink turbinates. THROAT: No erythema or exudates. NECK: No masses, no JVD, no thyroid enlargement, no adenopathy. CHEST: No chest wall deformity. Symmetrical expansion. LUNGS: Equal air entry with diminished breath sounds bilaterally, with diffuse crackles CVS: Regular rate and rhythm, normal S1 and S2, no gallops, no murmurs, no rubs ABDOMEN: Soft, nontender. No hepatosplenomegaly, normal bowel sounds, no guarding or rigidity. EXTREMITIES: No clubbing, 1+ generalized edema no cyanosis, 2+ pulses and upper and lower extremities. MUSCULOSKELETAL: Muscle strength and tone normal. SPINE: No scoliosis or deformity SKIN: No rashes CENTRAL NERVOUS SYSTEM: Sedated, intubated and paralyzed No focal deficits, tone is normal in all 4 extremities. - Labs CBC & Chem 7: 06/22/21 04:29 06/22/21 04:29 Labs: Abnormal Lab Results - Last 24 Hours (Table) 06/21/21 06/22/21 06/22/21 Range/Units 18:01 04:29 04:29 WBC 14.0 H (3.8-10.6) k/uL RBC 3.08 L (4.30-5.90) m/uL Hgb 8.9 L (13.0-17.5) gm/dL Hct 27.1 L (39.0-53.0) % Plt Count 48 L (150-450) k/uL Neutrophils # 13.0 H (1.3-7.7) k/uL Lymphocytes # 0.6 L (1.0-4.8) k/uL D-Dimer 11.73 H (<0.60) mg/L FEU ABG pH (7.35-7.45) ABG pO2 (83-108) mmHg ABG O2 Saturation (94-97) % Sodium (137-145) mmol/L Carbon Dioxide (22-30) mmol/L BUN (9-20) mg/dL Creatinine (0.66-1.25) mg/dL POC Glucose (mg/dL) 109 H (75-99) mg/dL Calcium (8.4-10.2) mg/dL Lactate Dehydrogenase (313-618) U/L C-Reactive Protein (<1.0) mg/dL 06/22/21 06/22/21 06/22/21 Range/Units 04:29 05:24 11:31 WBC (3.8-10.6) k/uL RBC (4.30-5.90) m/uL Hgb (13.0-17.5) gm/dL Hct (39.0-53.0) % Plt Count (150-450) k/uL Neutrophils # (1.3-7.7) k/uL Lymphocytes # (1.0-4.8) k/uL D-Dimer (<0.60) mg/L FEU ABG pH 7.30 L (7.35-7.45) ABG pO2 56 L* (83-108) mmHg ABG O2 Saturation 88.1 L (94-97) % Sodium 134 L (137-145) mmol/L Carbon Dioxide 20 L (22-30) mmol/L BUN 79 H (9-20) mg/dL Creatinine 4.65 H (0.66-1.25) mg/dL POC Glucose (mg/dL) 141 H (75-99) mg/dL Calcium 7.7 L (8.4-10.2) mg/dL Lactate Dehydrogenase 783 H (313-618) U/L C-Reactive Protein 5.8 H (<1.0) mg/dL Microbiology - Last 24 Hours (Table) 06/22/21 01:39 Sputum Culture - Preliminary Sputum Assessment and Plan Plan: Assessment: #1. Acute hypoxic respiratory failure secondary to COVID-19 pneumonia, patient was not vaccinated. He failed BiPAP therapy, was intubated on 06/15/2021, she remains sedated and paralyzed on assist control mode of ventilation with a PEEP of 14 and FiO2 of 55% today. #2. Subcutaneous emphysema #3. Acute kidney injury, patient was started on hemodialysis on 06/20/2021 #4. History of chronic atrial fibrillation, with recent RVR, currently on amiodarone and Eliquis for anticoagulation #5. Pseudomonas aeruginosa in his sputum culture, possibly related to immunosuppression, currently on Zosyn #6. Extensive oropharyngeal candidiasis #7. Leukocytosis #8. Elevated d-dimer, and inflammatory markers related to acute COVID-19 pneumonia Plan: Continue current vent settings Continue hemodialysis Continue current dose steroids, Continue antibiotics Still continues on paralytics, and sedatives, and increased PEEP and FiO2 Advance tube feedings as tolerated We will likely place a surgical consultation for tracheostomy and PEG tube early next week Overall Prognosis extremely guarded I performed a history & physical examination of the patient and discussed their management with my nurse practitioner, Telma Dimas. I reviewed the nurse practitioner's note and agree with the documented findings and plan of care. Lung sounds are positive for diminished breath sounds throughout the lung de la torre. The findings and the impression was discussed with the patient. I attest to the documentation by the nurse practitioner. Time with Patient: Greater than 30
--- NOTE | 2021-06-22 13:47 | P.PN ---
Subjective Progress Note Date: 06/22/21 This is a 75-year-old male who was recently admitted with COVID-19 infection with acute hypoxic respiratory failure and is being closely monitored. Pulmonary following closely and patient is maintained on dexamethasone along with Lovenox and vitamin and zinc supplements. Patient currently maintained on 15 L high flow via nasal cannula with supplemental use of 15 L nonrebreather. Patient states his breathing is slightly improved and not requiring a nonrebreather as often. Instructed the patient to use incentive spirometer and increase activity as tolerated. Patient continues to be extremely weak and will have PT/OT evaluate the patient once more stable. 06/06/2021 Patient is seen in follow-up this morning states his shortness of breath has slightly worsened and his recovery time and working to breathe has become more difficult. Patient is continued on 15 L high flow along with nonrebreather intermittently and having to use it more frequently today he states. Incentive spirometer at the bedside and instructed the patient to continue to use at least 10 times every hour while awake and encouraged increased activity as tolerated. Patient states he walked to the bathroom with assistance and became extremely dyspneic. Patient is afebrile. D-dimer is 4.72 with a WBC of 16 and hemoglobin is stable at 15.4. Sodium is 138 with a potassium of 4.5 and current creatinine is 0.63. LDH is elevated at 2492 and CRP is 6.5. Chest x-ray today shows findings consistent with COVID-19 pneumonia with bilateral interstitial and airspace disease present. 06/07/2021 Patient is seen and evaluated in follow up this morning and is having increasing shortness of breath and on 15L high flow via NC and 15 L non-rebreather. Patient has been back in bed and attempting position changes frequently along with prone position. Patient continues on lovenox, baracitinib, vitamin and zinc supplements,and steroids. Pulmonary following closely. 06/10/2021 Patient is seen in follow up this morning and is now maintained on airvo at 60% and continues to be extremely dyspneic with minimal exertion. Patient also continues with 15L Non rebreather as needed. Patient is maintained on lovenox along with baricitinib and IV steroids with pulmonary following. Patient states he has no reserve and taking longer periods of time to recover with attempting to position change or use the urinal. 06/11/2021 Patient is seen in follow-up and evaluated this morning and is continued on Airvo and maintaining oxygen saturations in the low 90s. Pulmonary following closely. Patient is afebrile. Patient is continued on vitamin and zinc supplements along with Baricitinib and subcutaneous Lovenox along with IV steroids and will continue. Patient's d-dimer today is elevated at 18.25 and will increase Lovenox to 50 subcu twice daily. White blood count today is 18.6 and hemoglobin is stable at 13.7, sodium is 139 with a potassium of 4.3 current creatinine is 0.7. Inflammatory markers are elevated with some trending down and CRP is 1.5, LDH is 1968 and alk phos is 168. Patient is afebrile. Patient continues to be extremely anxious and will continue Xanax as needed. Encouraged increase activity as tolerated and continued position changes with incentive spirometer use. 06/12/2021 Patient is seen in follow-up this morning with no acute issues noted overnight. Patient continues on Airvo with a flow rate of 55 and FiO2 of 80% maintaining oxygen saturations above 90%. Pulmonary following closely and we'll continue to wean as tolerated. Patient continues on Lovenox twice daily along with vitamin and zinc supplements and continued on IV steroids along with albuterol and Baricitinib. White blood count is 23.7 with a hemoglobin of 14.1, sodium is 139 with a potassium of 4.4 and current creatinine is 0.62. Will repeat chest x-ray along with inflammatory markers in the morning. 06/13/2021 Patient is seen and evaluated in follow-up as morning and continues to be on Airvo. Patient appears to be more raspy with some sputum and congested today with a hoarse voice. Infectious disease and pulmonary following closely. Sputum culture from 06/02 just today preliminary showing gram-negative bacilli along with Essence albicans and patient is being started on IV cefepime with repeat sputum culture ordered along with oral Diflucan. White blood count is 23.5 with hemoglobin of 13.8, sodium is 137 and potassium is 5.5 and current creatinine is 0.55. LFTs are mildly elevated. Repeat d-dimer along with CRP and LDH have been ordered. Will repeat a.m. labs. Chest x-ray today shows continued peripheral and lower lung interstitial infiltrates of Covid pneumonia without significant change. 06/14/2021 Patient is seen and evaluated in follow-up this morning continues to be dyspneic and requesting to go to the bed as he has been sitting up in the chair all day. Patient has been started on Diflucan along with IV cefepime and sputum culture from 06/02/2021 resulted showing Pseudomonas aeruginosa along with Essence albicans. Infectious disease is following closely. Patient is completing Baricitinib and will be transitioned to oral prednisone taper with pulmonary following closely. Patient has been started on eliquis. D-dimer today has trended down to 11.02, LDH is 2178, CRP is 3.2, liver functions trending down. White blood count slightly trending down at 20.2 and hemoglobin is stable at 13.7, sodium is 136 with a potassium of 4.3 and current creatinine is 0.57. Continues to have a mildly raspy voice with some throat dryness and will add Cepacol. 06/15/2021 Patient evaluated in bed and is resting on the BiPAP in the intensive care unit, he had desaturated this morning will be moved to the bathroom and initially was on a 15L HF, however is now requiring BiPAP. Patient was started on a Precedex drip. Repeat chest x-ray today which revealed persistent multifocal and confluent bilateral reticulonodular opacities is consistent with known coronary infection more prominent in the lower lungs. Patient finished a course of therapy with Baricitinib and transitioned to oral prednisone. Labs reviewed today include a white blood cell count 21.2, hemoglobin of 12.5. Blood gases show a pO2 of 32 and O2 saturation of 50.3. Chloride is 110, CO2 20, sodium 137, potassium 4. LDH is worse today at 2277, alk phos 158, CRP is trending upwards of 4.6. Patient has remained afebrile, heart rate is now 83, respirations 32, blood pressure 124/68. Oxygen saturation is maintaining in the mid to high 80s on 100% BiPAP. Patient is nothing by mouth and oral medications are unable to be given. Patient is on IV cefepime for a sputum culture positive for Pseudomonas. He is IV Diflucan for oral candidiasis that was improving as of yesterday. 06/16/2021 Patient is evaluated in the intensive care unit, he is status post intubation and has NG tube in place. Labs reviewed today included white blood cell, 44.2, d-dimer greater than 34. ABGs from the A-line included a pH of 7.15, pCO2 of 71, total CO2 is 27 and oxygen saturation of 98. Bicarb is 25 and his pO2 is 107. Additional labs include a serum potassium 5.1, chloride of 109, BUN of 27, creatinine 1.06. Vital signs include a heart rate of 123 tachycardia, respiratory rate of 36, blood pressure 100/50, he is 98% oxygen saturation. Patient is on vasopressors for his blood pressure. Repeat blood cultures are negative. Patient is receiving propofol for sedation. His chest x-ray was reviewed which is showing bilateral pulmonary infiltrates demonstrating COVID- 19 pneumonia with ARDS. Patient is still getting IV cefepime for a sputum culture Pseudomonas although his pro calcitonin level is 0.03 which is not usually indicative of a bacterial infection. Additional inflammatory markers remain elevated. Patient did receive 2 L saline bolus. Repeat labs in the morning, prognosis is guarded for this patient. 06/17/2021 Patient is seen in follow-up continues to be monitored closely in the ICU with multiple medical consultations following. Prognosis is extremely guarded. Patient's respiratory status significantly worsened requiring mechanical ventilation and intubation and currently patient is sedated. White blood count is worsened at 26.1 and hemoglobin is 12.2, d-dimer is 27.06, ABG is 7.16 pH with a pCO2 of 57 and a pO2 of 68 and bicarb is 20, sodium is 140 with a potassium of 5.0 and current creatinine has worsened at 2.29 pro calcitonin is 24.40. Infectious disease along with pulmonary ground crew lines person following closely. Patient continues on cefepime along with eliquis, vitamin and zinc supplements and patient has finished Baricitinib. Patient was on oral Decadron and is being transitioned back to IV dexamethasone along with Diflucan. Patient was given a dose of IV Lasix and nephrology has been consulted. Cardiology consulted as well and patient is currently on amiodarone drip along with Cleviprex and currently sedated on propofol. Patient also has norepinephrine drip as well. Patient being started on sodium bicarb drip. Patient also has low-grade fevers. 06/18/2021 Patient is seen in follow up in the ICU and maintained on mechanical vent intubated and sedated. Patient continues on NImbex, sodium bicarb, amiodarone, and being started on fentanyl as IV lasix drip with multiple medical consultations following. Kidney functions continue to deteriorate with nephrology following closely. Discussion being had about possible hemodialysis if kidney functions continue to worsen. Creatinine currently 3.69 today. 06/19/2021 Patient remains on mechanical vent with minimal urine output note and extensive volume overload with worsening kidney functions and would like to proceed with hemodialysis catheter placement with nephrology following closely. Multiple consultations following and Dr. Mann consulted for hemodialysis catheter placement and will hold eliquis. Amiodarone being transitioned to oral with cardiology following closely. Continue close monitoring in the ICU. Overall Prognosis remains extremely poor and guarded. 06/20/2021 Patient is seen and evaluated in follow-up continue to be closely monitored with multiple medical consultations following in the ICU. Patient remains intubated on mechanical ventilation and sedated. Kidney functions continue to worsen and patient is an extensive volume overload and has received dialysis catheter today and will initiate hemodialysis. Patient was maintained on IV Lasix drip which is being transitioned to IV push Lasix twice daily with nephrology following closely. Patient also continues on IV cefepime along with dexamethasone, vitamin and zinc supplements and continues on eliquis as well. White blood count 11.9 and hemoglobin is 9.6, platelets are 61 and d-dimer is 8.40. Sodium is 135 with a potassium of 5.0 and current BUN is 99 with a creatinine of 5.23. LDH is 1015 and pro calcitonin is 13.10. Prognosis remains extremely guarded. 06/21/2021 Patient is evaluated in follow up this morning and continues to be monitored closely in the ICU. On mechanical vent with an FI02 of 50%. Currently receiving hemodialysis and will likely require daily treatments if tolerated for extensive overload. Patient continues on IV lasix twice daily along with Nimbex, propofol, and fentanyl. Chest xray done today. Patient continues on IV cefepime with most recent repeat sputum culture revealing no growth. Infectious disease following closely. 06/22/2021 Patient remains intubated in the ICU, on ventilatory before meals settings, tidal volume 450, 50% FiO2, PEEP of 16, saturating 80%. ABG showing pO2 66, pCO2 42, pH 7.32, he was dialyzed for 2-1/2 L removed., He is making urine He remains sedated with propofol and he is paralyzed with Nimbex. His sputum is growing pseudomonas receiving antimicrobial therapy of cefepime, ID is following. No fever this morning, blood pressure 09/26/1938/50. Chest x-ray showing extensive bilateral airspace disease, correlate for pneumonia or ARDS. In atrial fibrillation with controlled ventricular rate Lab Sodium is 134, potassium is 4.5, BUN 91, creatinine is 5.06, LDH 842, CRP 3.8, D-dimer is 8.41, WBC 14 hemogl8.9platelets 48 Review of systems: Unable to complete a full review of symptoms as patient is sedated and on a ventilator. Active Medications Acetaminophen (Acetaminophen Tab 325 Mg Tab) 650 mg PO Q6HR PRN PRN Reason: Fever and/ or Mild Pain Last Admin: 06/14/21 22:22 Dose: 650 mg Documented by: Albuterol Sulfate (Albuterol Hfa Inhaler) 2 puff INHALATION RT-QID [facility] Last Admin: 06/20/21 19:41 Dose: 2 puff Documented by: Albuterol Sulfate (Albuterol Hfa Inhaler) 2 puff INHALATION RT-QID PRN PRN Reason: Shortness Of Breath Or Wheezing Last Admin: 06/15/21 03:30 Dose: 2 puff Documented by: Amiodarone HCl (Amiodarone 200 Mg Tab) 200 mg PO BID [facility] Last Admin: 06/21/21 08:39 Dose: 200 mg Documented by: Apixaban (Apixaban 5 Mg Tab) 5 mg PO BID [facility]; Protocol Last Admin: 06/21/21 08:41 Dose: 5 mg Documented by: Artificial Tears (Artificial Tears-Hypromellose Drops 15 Ml Btl) 2 drops BOTH EYES Q4HR [facility] Last Admin: 06/21/21 04:31 Dose: 2 drops Documented by: Ascorbic Acid (Ascorbic Acid 500 Mg Tab) 500 mg PO DAILY [facility] Last Admin: 06/21/21 08:39 Dose: 500 mg Documented by: Benzocaine/Menthol (Benzocaine/Menthol Lozeng 1 Each Lozenge) 1 each MUCOUS MEM Q4HR PRN PRN Reason: Sore Throat Chlorhexidine Gluconate (Chlorhexidine Gluconate 15 Ml Cup) 15 ml MUCOUS MEM BID [facility] Last Admin: 06/21/21 08:27 Dose: 15 ml Documented by: Cholecalciferol (Cholecalciferol 25 Mcg (1000 Iu) Tablet) 25 mcg PO DAILY [facility] Last Admin: 06/21/21 08:39 Dose: 25 mcg Documented by: Cyanocobalamin (Cyanocobalamin 500 Mcg Tab) 1,000 mcg PO DAILY [facility] Last Admin: 06/21/21 08:39 Dose: 1,000 mcg Documented by: Dexamethasone Sodium Phosphate (Dexamethasone Sod Phosphate 10 Mg/Ml 1 Ml Vial) 6 mg IV DAILY [facility] Last Admin: 06/21/21 08:26 Dose: 6 mg Documented by: Fluconazole (Fluconazole 100 Mg Tab) 100 mg PO DAILY [facility] Last Admin: 06/21/21 08:39 Dose: 100 mg Documented by: Furosemide (Furosemide 10 Mg/Ml 10 Ml Vial) 60 mg IV Q12HR [facility] Last Admin: 06/21/21 08:23 Dose: 60 mg Documented by: Propofol 1,000 mg/ IV Solution 100 mls @ 0 mls/hr IV .Q0M [facility]; Protocol Last Admin: 06/21/21 07:53 Dose: 50 mcg/kg/min, 37.44 mls/hr Documented by: Norepinephrine Bitartrate 8 mg (/ Sodium Chloride) 258 mls @ 9.482 mls/hr IV .Q24H [facility]; Protocol Last Admin: 06/20/21 16:41 Dose: Not Given Documented by: Cisatracurium Besylate 200 mg/ (Sodium Chloride) 200 mls @ 5.88 mls/hr IV .Q24H [facility]; Protocol Last Admin: 06/21/21 01:30 Dose: 2 mcg/kg/min, 11.76 mls/hr Documented by: Cefepime HCl 1 gm/ Sodium (Chloride) 50 mls @ 12.5 mls/hr IVPB Q12HR [facility] Last Admin: 06/21/21 08:26 Dose: 12.5 mls/hr Documented by: Fentanyl Citrate 1,000 mcg/ (Sodium Chloride) 100 mls @ 2.765 mls/hr IV .Q24H [facility]; Protocol Last Titration: 06/21/21 08:07 Dose: 0.6 mcg/kg/hr, 6.636 mls/hr Documented by: Metoclopramide HCl (Metoclopramide 5 Mg/Ml 2 Ml Vial) 5 mg IVP Q8H [facility] Last Admin: 06/21/21 04:31 Dose: 5 mg Documented by: Pantoprazole Sodium (Pantoprazole 40 Mg/10 Ml Vial) 40 mg IVP BID [facility] Last Admin: 06/21/21 08:25 Dose: 40 mg Documented by: Senna (Sennosides 8.6 Mg Tab) 8.6 mg PO BID [facility] Last Admin: 06/21/21 08:39 Dose: 8.6 mg Documented by: Zinc Sulfate (Zinc Sulfate 220 Mg Cap) 220 mg PO DAILY [facility] Last Admin: 06/21/21 08:39 Dose: 220 mg Documented by: Physical exam: Gen: This is a 75-year-old male sedated and intubated on propofol and mechanical ventilation. HEENT: Head is atraumatic, normocephalic. Pupils equal, round. Sclerae is anicteric. NECK: Supple. No JVD. No lymphadenopathy. No thyromegaly. LUNGS: Diminished breath sounds bilaterally with scattered coarse rhonchi and crackles noted. Extensive subcutaneous emphysema noted. HEART: Irregular S1, S2 are muffled ABDOMEN: Soft. obese. Bowel sounds are present. No masses. No guarding or rigidity noted. EXTREMITIES: Extensive pitting edema noted of upper and lower bilateral extremities and much of the body. NEUROLOGICAL: Patient is intubated and sedated Assessment: Acute COVID-19 infection with acute component of interstitial pneumonia, bilateral , possibly ARDS with acute hypoxic respiratory failure and possible sepsis secondary to COVID-19 Status post mechanical ventilation and intubation after failed BIPAP on 06/15/2021 secondary to above Subcutaneous emphysema Pseudomonas aeruginosa growing in sputum acute renal failure likely ATN with worsening kidney functions and minimal urine output requiring hemodialysis volume overload secondary to ARF metabolic acidosis afib with RVR currently rate controlled on oral amiodarone and metoprolol Lactic acidosis secondary to above Initial sputum culture showing Essence albicans and pseudomonas aeruginosa and maintained on IV cefepime Oral candidiasis started on Diflucan, sputum cultures from 06/02/2021 Essence albicans Extensive interstitial bilateral COVID-19 pneumonia Elevated white blood count possibly secondary to above Possible subsegmental pulmonary embolism ruled out History of atrial fibrillation Anxiety Remote history of nicotine dependence GI prophylaxis: Protonix DVT prophylaxis: On eliquis Full code Plan: Recommend to continue with current medications and continue to closely monitor in the ICU. Patient remains on mechanical ventilation and has received hemodialysis catheter and currently receiving hemodiwith nephrology following, 2-1/2 L removedient continues on IV cefepime with ID following closely as we, sputum growing Pseudomonas Patient remains on eliquis 5 mg twice a day, vitamin and zinc supplements IV dexamethasone and will continue. Patient has completed Baricitinib. . Chest xray shows stable diffuse subcut emphysema and bilateral infiltrates with no sizable pneumothorax noted, possible less than 5% pneumothorax noted on the left is not excluded. Prognosis is extremely guarded and will continue to monitor closely. in atrial fibrillation with controlled ventricular rate on beta magali. Repeat labs and cxr in the am. Objective - Vital Signs Vital signs: Vital Signs Temp 97.5 F L 06/22/21 12:00 Pulse 81 06/22/21 12:00 Resp 36 H 06/22/21 12:00 BP 103/54 06/22/21 11:18 Pulse Ox 88 L 06/22/21 12:00 Intake & Output 06/21/21 06/22/21 06/22/21 18:59 06:59 18:59 Intake Total 1038.735 809.028 721.588 Output Total 2170 275 2545 Balance -1131.265 534.028 -1823.412 Weight 123.3 kg 119.6 kg Intake: IV 253 299 215 0.9 220 260 100 Cefepime 2 gm In Sodium 100 Chloride 0.9% 100 ml @ 25 mls/hr IVPB Q8HR [facility] Rx# :[id number] Pressure bag 33 39 15 Intake, IV Titration 675.735 290.028 396.588 Amount Cisatracurium 200 mg In 179.144 196.588 Sodium Chloride 0.9% 180 ml @ 1 MCG/KG/MIN 5.88 mls/hr IV .Q24H [facility] Rx#: [id number] fentaNYL (PF). 1,000 mcg 96.591 90.028 In Sodium Chloride 0.9% 80 ml @ 0.25 MCG/KG/HR 2. 765 mls/hr IV .Q24H [facility] Rx#:[id number] propofoL 1,000 mg In 400 200 200 Empty Bag 1 bag @ Titrate IV .Q0M [facility] Rx#: [id number] Tube Feeding 80 130 50 Other 30 90 60 Output: Urine 170 275 45 Hemodialysis 2000 2500 Other: Voiding Method Indwelling Catheter Indwelling Catheter Indwelling Catheter # Bowel Movements 1 ABP, PAP, CO, CI - Last Documented Arterial Blood Pressure 113/50 - Labs CBC & Chem 7: 06/22/21 04:29 06/22/21 04:29 Labs: Abnormal Lab Results - Last 24 Hours (Table) 06/21/21 06/22/21 06/22/21 Range/Units 18:01 04:29 04:29 WBC 14.0 H (3.8-10.6) k/uL RBC 3.08 L (4.30-5.90) m/uL Hgb 8.9 L (13.0-17.5) gm/dL Hct 27.1 L (39.0-53.0) % Plt Count 48 L (150-450) k/uL Neutrophils # 13.0 H (1.3-7.7) k/uL Lymphocytes # 0.6 L (1.0-4.8) k/uL D-Dimer 11.73 H (<0.60) mg/L FEU ABG pH (7.35-7.45) ABG pO2 (83-108) mmHg ABG O2 Saturation (94-97) % Sodium (137-145) mmol/L Carbon Dioxide (22-30) mmol/L BUN (9-20) mg/dL Creatinine (0.66-1.25) mg/dL POC Glucose (mg/dL) 109 H (75-99) mg/dL Calcium (8.4-10.2) mg/dL Lactate Dehydrogenase (313-618) U/L C-Reactive Protein (<1.0) mg/dL 06/22/21 06/22/21 06/22/21 Range/Units 04:29 05:24 11:31 WBC (3.8-10.6) k/uL RBC (4.30-5.90) m/uL Hgb (13.0-17.5) gm/dL Hct (39.0-53.0) % Plt Count (150-450) k/uL Neutrophils # (1.3-7.7) k/uL Lymphocytes # (1.0-4.8) k/uL D-Dimer (<0.60) mg/L FEU ABG pH 7.30 L (7.35-7.45) ABG pO2 56 L* (83-108) mmHg ABG O2 Saturation 88.1 L (94-97) % Sodium 134 L (137-145) mmol/L Carbon Dioxide 20 L (22-30) mmol/L BUN 79 H (9-20) mg/dL Creatinine 4.65 H (0.66-1.25) mg/dL POC Glucose (mg/dL) 141 H (75-99) mg/dL Calcium 7.7 L (8.4-10.2) mg/dL Lactate Dehydrogenase 783 H (313-618) U/L C-Reactive Protein 5.8 H (<1.0) mg/dL Microbiology - Last 24 Hours (Table) 06/22/21 01:39 Sputum Culture - Preliminary Sputum
[2021-06-22] MEDS: METOPROLOL TARTRATE 25 MG TAB PO SCH (14:39)
--- NOTE | 2021-06-22 16:23 | PN ---
PROGRESS NOTE DATE OF SERVICE: 06/22/2021 REASON FOR FOLLOWUP: Pneumonia. INTERVAL HISTORY: The patient is afebrile. The patient is hemodynamically stable. The patient remains intubated on the vent. FiO2 is currently 50%. No significant purulent secretions in the ET. No diarrhea reported by the nursing staff. PHYSICAL EXAMINATION: Blood pressure is 110/51 with a pulse of 76, temperature 97.5. He is 94% on 50% FiO2. General description is an elderly male lying in bed in no distress. RESPIRATORY SYSTEM: Unlabored breathing. Decreased breath sounds at the bases. No wheeze. HEART: S1, S2. Regular rate and rhythm. ABDOMEN: Soft. No tenderness. LABS: Hemoglobin is 8.9, white count 14, creatinine 4.65. DIAGNOSTIC IMPRESSION AND PLAN: Patient with acute respiratory failure, multifactorial, in this patient who did have a COVID-19 infection, now with a component of secondary bacterial pneumonia with procalcitonin. Patient is covered with cefepime. Repeat cultures will be ordered. Those will be followed. Continue supportive care. MMODL / IJN: [id number] /
[2021-06-22] MEDS: NOREPINEPHRINE 8 MG in SODIUM CHLORIDE 0.9% 250 ML IV SCH (18:13)
[2021-06-22 18:58] LABS: Glucose,Whole Blood 111 mg/dL (75-99)
[2021-06-23] MEDS: ARTIFICIAL TEARS-HYPROMELLOSE DROPS 15 ML BTL BOTH EYES SCH ×7 (00:08→23:23)
[2021-06-23] MEDS: METOCLOPRAMIDE 5 MG/ML 2 ML VIAL IVP SCH ×3 (03:04→20:06)
[2021-06-23 04:00] LABS: Glucose,Whole Blood 103 mg/dL (75-99)
[2021-06-23 05:19] LABS: C Reactive Protein 8.5 mg/dL (<1.0); Calcium 7.9 mg/dL (8.4-10.2); Potassium 4.4 mmol/L (3.5-5.1)
[2021-06-23 05:27] LABS: Basophils % (A) 0 %; Eosinophils # (A) 0.2 k/uL (0-0.7); Eosinophils % (A) 1 %; HCT 25.2 % (39.0-53.0); HGB 8.3 gm/dL (13.0-17.5); Lymphocytes # (A) 0.5 k/uL (1.0-4.8); Lymphocytes % (A) 4 %; MCH 30.1 pg (25.0-35.0); MCHC 33.1 g/dL (31.0-37.0); Mean Platelet Volume 10.5; Monocytes # (A) 0.2 k/uL (0-1.0); Monocytes % (A) 1 %; Neutrophils # (A) 11.9 k/uL (1.3-7.7); Neutrophils % (A) 93 %; Platelet Count 40 k/uL (150-450); RBC 2.77 m/uL (4.30-5.90); RDW 14.2 % (11.5-15.5); WBC 12.7 k/uL (3.8-10.6)
[2021-06-23 05:39] LABS: ABG Base Excess -4.7 mmol/L; ABG HCO3 22 mmol/L (21-25); ABG Oxygen Saturation 86.7 % (94-97); ABG PCO2 43 mmHg (35-45); ABG PH 7.31 (7.35-7.45); ABG TCO2 23 mmol/L (19-24)
[2021-06-23 05:45] LABS: ABG PO2 54 mmHg (83-108)
--- NOTE | 2021-06-23 07:31 | XR ---
EXAMINATION TYPE: XR chest 1V portable DATE OF EXAM: 06/23/2021 COMPARISON: Chest x-ray 06/22/2021 HISTORY: Abnormal chest x-ray, intubated TECHNIQUE: Single frontal view of the chest is obtained. FINDINGS: Endotracheal tube, NG tube, left subclavian central venous catheter are overlying appropri ate positions. Extensive subcutaneous emphysema persists. Bilateral interstitial and airspace disease is present. There is no evident pneumothorax or pleural effusion. Cardiac mediastinal silhouette is stable. IMPRESSION: Findings are similar to prior exam. Correlate for pneumonia, ARDS, pulmonary edema not e xcluded.
[2021-06-23] MEDS: ALBUTEROL HFA INHALER INHALATION SCH ×4 (07:43→19:36)
[2021-06-23] MEDS: FUROSEMIDE 10 MG/ML 10 ML VIAL IV SCH ×2 (08:27→20:06)
[2021-06-23] MEDS: PANTOPRAZOLE 40 MG/10 ML VIAL IVP SCH ×2 (08:27→20:07)
[2021-06-23] MEDS: CHLORHEXIDINE GLUCONATE 15 ML CUP MUCOUS MEM SCH ×2 (08:27→20:06)
[2021-06-23] MEDS: bisacodyL 10 MG SUPP RECTAL SCH (08:28)
[2021-06-23] MEDS: ZINC SULFATE 220 MG CAP PO SCH (08:28)
[2021-06-23] MEDS: FLUCONAZOLE 100 MG TAB PO SCH (08:28)
[2021-06-23] MEDS: CHOLECALCIFEROL 25 MCG (1000 IU) TABLET PO SCH (08:28)
[2021-06-23] MEDS: METOPROLOL TARTRATE 25 MG TAB PO SCH (08:28)
[2021-06-23] MEDS: ASCORBIC ACID 500 MG TAB PO SCH (08:28)
[2021-06-23] MEDS: APIXABAN 5 MG TAB PO SCH ×2 (08:28→20:06)
[2021-06-23] MEDS: AMIODARONE 200 MG TAB PO SCH ×2 (08:28→20:06)
[2021-06-23] MEDS: CYANOCOBALAMIN 500 MCG TAB PO SCH (08:28)
[2021-06-23] MEDS: SENNOSIDES-DOCUSATE SODIUM 1 EACH TAB PO SCH (08:28)
[2021-06-23] MEDS: DEXAMETHASONE SOD PHOSPHATE 10 MG/ML 1 ML VIAL IV SCH (08:29)
--- NOTE | 2021-06-23 09:35 | P.PN ---
Subjective Patient is seen in follow-up for acute kidney injury, currently hemodialysis dependent. Oliguric. Tolerated 2.5 L ultrafiltration yesterday. Intubated. On 50% FiO2. Blood pressure stable. Vital signs are stable. General: Intubated. Regular rate and rhythm. Scrotal edema noted. No abdominal distention. Objective - Vital Signs Vital signs: Vital Signs Temp 97.7 F 06/23/21 08:00 Pulse 98 06/23/21 09:00 Resp 36 H 06/23/21 09:00 BP 119/69 06/23/21 03:00 Pulse Ox 90 L 06/23/21 09:00 Intake & Output 06/22/21 06/23/21 06/23/21 18:59 06:59 18:59 Intake Total 1147.612 826 229 Output Total 2575 50 25 Balance -1427.388 776 204 Weight 118 kg Intake: IV 353 276 69 0.9 220 240 60 Cefepime 2 gm In Sodium 100 Chloride 0.9% 100 ml @ 25 mls/hr IVPB Q8HR [facility] Rx# :[id number] Pressure bag 33 36 9 Intake, IV Titration 594.612 400 100 Amount Cisatracurium 200 mg In 196.588 Sodium Chloride 0.9% 180 ml @ 1 MCG/KG/MIN 5.88 mls/hr IV .Q24H [facility] Rx#: [id number] fentaNYL (PF). 1,000 mcg 100 In Sodium Chloride 0.9% 80 ml @ 0.25 MCG/KG/HR 2. 765 mls/hr IV .Q24H [facility] Rx#:[id number] propofoL 1,000 mg In 398.024 300 100 Empty Bag 1 bag @ Titrate IV .Q0M [facility] Rx#: [id number] Tube Feeding 110 120 30 Other 90 30 30 Output: Urine 75 50 25 Hemodialysis 2500 Other: Voiding Method Indwelling Catheter Indwelling Catheter # Voids 0 ABP, PAP, CO, CI - Last Documented Arterial Blood Pressure 154/58 - Labs CBC & Chem 7: 06/23/21 03:58 06/23/21 03:58 Labs: Abnormal Lab Results - Last 24 Hours (Table) 06/22/21 06/22/21 06/23/21 Range/Units 11:31 18:57 03:57 WBC (3.8-10.6) k/uL RBC (4.30-5.90) m/uL Hgb (13.0-17.5) gm/dL Hct (39.0-53.0) % Plt Count (150-450) k/uL Neutrophils # (1.3-7.7) k/uL Lymphocytes # (1.0-4.8) k/uL D-Dimer (<0.60) mg/L FEU ABG pH (7.35-7.45) ABG pO2 (83-108) mmHg ABG O2 Saturation (94-97) % Sodium (137-145) mmol/L Carbon Dioxide (22-30) mmol/L BUN (9-20) mg/dL Creatinine (0.66-1.25) mg/dL POC Glucose (mg/dL) 141 H 111 H 103 H (75-99) mg/dL Calcium (8.4-10.2) mg/dL Phosphorus (2.5-4.5) mg/dL Lactate Dehydrogenase (313-618) U/L C-Reactive Protein (<1.0) mg/dL 06/23/21 06/23/21 06/23/21 Range/Units 03:58 03:58 03:58 WBC 12.7 H (3.8-10.6) k/uL RBC 2.77 L (4.30-5.90) m/uL Hgb 8.3 L (13.0-17.5) gm/dL Hct 25.2 L (39.0-53.0) % Plt Count 40 L (150-450) k/uL Neutrophils # 11.9 H (1.3-7.7) k/uL Lymphocytes # 0.5 L (1.0-4.8) k/uL D-Dimer 9.68 H (<0.60) mg/L FEU ABG pH (7.35-7.45) ABG pO2 (83-108) mmHg ABG O2 Saturation (94-97) % Sodium 135 L (137-145) mmol/L Carbon Dioxide 19 L (22-30) mmol/L BUN 69 H (9-20) mg/dL Creatinine 4.18 H (0.66-1.25) mg/dL POC Glucose (mg/dL) (75-99) mg/dL Calcium 7.9 L (8.4-10.2) mg/dL Phosphorus (2.5-4.5) mg/dL Lactate Dehydrogenase 730 H (313-618) U/L C-Reactive Protein 8.5 H (<1.0) mg/dL 06/23/21 06/23/21 Range/Units 04:00 05:34 WBC (3.8-10.6) k/uL RBC (4.30-5.90) m/uL Hgb (13.0-17.5) gm/dL Hct (39.0-53.0) % Plt Count (150-450) k/uL Neutrophils # (1.3-7.7) k/uL Lymphocytes # (1.0-4.8) k/uL D-Dimer (<0.60) mg/L FEU ABG pH 7.31 L (7.35-7.45) ABG pO2 54 L* (83-108) mmHg ABG O2 Saturation 86.7 L (94-97) % Sodium (137-145) mmol/L Carbon Dioxide (22-30) mmol/L BUN (9-20) mg/dL Creatinine (0.66-1.25) mg/dL POC Glucose (mg/dL) (75-99) mg/dL Calcium (8.4-10.2) mg/dL Phosphorus 7.6 H (2.5-4.5) mg/dL Lactate Dehydrogenase (313-618) U/L C-Reactive Protein (<1.0) mg/dL Microbiology - Last 24 Hours (Table) 06/22/21 01:39 Gram Stain - Preliminary Sputum Sputum Culture - Preliminary Assessment and Plan Plan: Assessment: 1. Acute kidney injury secondary to ATN secondary to sepsis/covid-19 infection. Baseline creatinine is near 1. Currently hemodialysis dependent. Right femoral catheter placed June 20. Oliguric. 2. Volume overload. 3. Acute hypoxic respiratory failure secondary to covid-19 pneumonia and volume overload. 4. A. fib with RVR maintained on oral amiodarone. 5. Metabolic acidosis secondary to acute kidney injury. 6. Hyperphosphatemia secondary to acute kidney injury. Plan: Hemodialysis tomorrow with goal 2-3 L UF. Maintain IV Lasix. Continue to monitor renal function and urine output. Add PhosLo.
[2021-06-23] MEDS: fentaNYL (PF). 1,000 MCG in SODIUM CHLORIDE 0.9% 80 ML IV SCH ×2 (10:01→17:16)
[2021-06-23] MEDS: CISATRACURIUM 200 MG in SODIUM CHLORIDE 0.9% 180 ML IV SCH (10:02)
[2021-06-23] MEDS: CALCIUM ACETATE 667 MG TAB PO SCH ×2 (12:13→16:23)
--- NOTE | 2021-06-23 12:14 | P.PN ---
Subjective Progress Note Date: 06/23/21 This is a 75-year-old male who was recently admitted with COVID-19 infection with acute hypoxic respiratory failure and is being closely monitored. Pulmonary following closely and patient is maintained on dexamethasone along with Lovenox and vitamin and zinc supplements. Patient currently maintained on 15 L high flow via nasal cannula with supplemental use of 15 L nonrebreather. Patient states his breathing is slightly improved and not requiring a nonrebreather as often. Instructed the patient to use incentive spirometer and increase activity as tolerated. Patient continues to be extremely weak and will have PT/OT evaluate the patient once more stable. 06/06/2021 Patient is seen in follow-up this morning states his shortness of breath has slightly worsened and his recovery time and working to breathe has become more difficult. Patient is continued on 15 L high flow along with nonrebreather intermittently and having to use it more frequently today he states. Incentive spirometer at the bedside and instructed the patient to continue to use at least 10 times every hour while awake and encouraged increased activity as tolerated. Patient states he walked to the bathroom with assistance and became extremely dyspneic. Patient is afebrile. D-dimer is 4.72 with a WBC of 16 and hemoglobin is stable at 15.4. Sodium is 138 with a potassium of 4.5 and current creatinine is 0.63. LDH is elevated at 2492 and CRP is 6.5. Chest x-ray today shows findings consistent with COVID-19 pneumonia with bilateral interstitial and airspace disease present. 06/07/2021 Patient is seen and evaluated in follow up this morning and is having increasing shortness of breath and on 15L high flow via NC and 15 L non-rebreather. Patient has been back in bed and attempting position changes frequently along with prone position. Patient continues on lovenox, baracitinib, vitamin and zinc supplements,and steroids. Pulmonary following closely. 06/10/2021 Patient is seen in follow up this morning and is now maintained on airvo at 60% and continues to be extremely dyspneic with minimal exertion. Patient also continues with 15L Non rebreather as needed. Patient is maintained on lovenox along with baricitinib and IV steroids with pulmonary following. Patient states he has no reserve and taking longer periods of time to recover with attempting to position change or use the urinal. 06/11/2021 Patient is seen in follow-up and evaluated this morning and is continued on Airvo and maintaining oxygen saturations in the low 90s. Pulmonary following closely. Patient is afebrile. Patient is continued on vitamin and zinc supplements along with Baricitinib and subcutaneous Lovenox along with IV steroids and will continue. Patient's d-dimer today is elevated at 18.25 and will increase Lovenox to 50 subcu twice daily. White blood count today is 18.6 and hemoglobin is stable at 13.7, sodium is 139 with a potassium of 4.3 current creatinine is 0.7. Inflammatory markers are elevated with some trending down and CRP is 1.5, LDH is 1968 and alk phos is 168. Patient is afebrile. Patient continues to be extremely anxious and will continue Xanax as needed. Encouraged increase activity as tolerated and continued position changes with incentive spirometer use. 06/12/2021 Patient is seen in follow-up this morning with no acute issues noted overnight. Patient continues on Airvo with a flow rate of 55 and FiO2 of 80% maintaining oxygen saturations above 90%. Pulmonary following closely and we'll continue to wean as tolerated. Patient continues on Lovenox twice daily along with vitamin and zinc supplements and continued on IV steroids along with albuterol and Baricitinib. White blood count is 23.7 with a hemoglobin of 14.1, sodium is 139 with a potassium of 4.4 and current creatinine is 0.62. Will repeat chest x-ray along with inflammatory markers in the morning. 06/13/2021 Patient is seen and evaluated in follow-up as morning and continues to be on Airvo. Patient appears to be more raspy with some sputum and congested today with a hoarse voice. Infectious disease and pulmonary following closely. Sputum culture from 06/02 just today preliminary showing gram-negative bacilli along with Essence albicans and patient is being started on IV cefepime with repeat sputum culture ordered along with oral Diflucan. White blood count is 23.5 with hemoglobin of 13.8, sodium is 137 and potassium is 5.5 and current creatinine is 0.55. LFTs are mildly elevated. Repeat d-dimer along with CRP and LDH have been ordered. Will repeat a.m. labs. Chest x-ray today shows continued peripheral and lower lung interstitial infiltrates of Covid pneumonia without significant change. 06/14/2021 Patient is seen and evaluated in follow-up this morning continues to be dyspneic and requesting to go to the bed as he has been sitting up in the chair all day. Patient has been started on Diflucan along with IV cefepime and sputum culture from 06/02/2021 resulted showing Pseudomonas aeruginosa along with Essence albicans. Infectious disease is following closely. Patient is completing Baricitinib and will be transitioned to oral prednisone taper with pulmonary following closely. Patient has been started on eliquis. D-dimer today has trended down to 11.02, LDH is 2178, CRP is 3.2, liver functions trending down. White blood count slightly trending down at 20.2 and hemoglobin is stable at 13.7, sodium is 136 with a potassium of 4.3 and current creatinine is 0.57. Continues to have a mildly raspy voice with some throat dryness and will add Cepacol. 06/15/2021 Patient evaluated in bed and is resting on the BiPAP in the intensive care unit, he had desaturated this morning will be moved to the bathroom and initially was on a 15L HF, however is now requiring BiPAP. Patient was started on a Precedex drip. Repeat chest x-ray today which revealed persistent multifocal and confluent bilateral reticulonodular opacities is consistent with known coronary infection more prominent in the lower lungs. Patient finished a course of therapy with Baricitinib and transitioned to oral prednisone. Labs reviewed today include a white blood cell count 21.2, hemoglobin of 12.5. Blood gases show a pO2 of 32 and O2 saturation of 50.3. Chloride is 110, CO2 20, sodium 137, potassium 4. LDH is worse today at 2277, alk phos 158, CRP is trending upwards of 4.6. Patient has remained afebrile, heart rate is now 83, respirations 32, blood pressure 124/68. Oxygen saturation is maintaining in the mid to high 80s on 100% BiPAP. Patient is nothing by mouth and oral medications are unable to be given. Patient is on IV cefepime for a sputum culture positive for Pseudomonas. He is IV Diflucan for oral candidiasis that was improving as of yesterday. 06/16/2021 Patient is evaluated in the intensive care unit, he is status post intubation and has NG tube in place. Labs reviewed today included white blood cell, 44.2, d-dimer greater than 34. ABGs from the A-line included a pH of 7.15, pCO2 of 71, total CO2 is 27 and oxygen saturation of 98. Bicarb is 25 and his pO2 is 107. Additional labs include a serum potassium 5.1, chloride of 109, BUN of 27, creatinine 1.06. Vital signs include a heart rate of 123 tachycardia, respiratory rate of 36, blood pressure 100/50, he is 98% oxygen saturation. Patient is on vasopressors for his blood pressure. Repeat blood cultures are negative. Patient is receiving propofol for sedation. His chest x-ray was reviewed which is showing bilateral pulmonary infiltrates demonstrating COVID- 19 pneumonia with ARDS. Patient is still getting IV cefepime for a sputum culture Pseudomonas although his pro calcitonin level is 0.03 which is not usually indicative of a bacterial infection. Additional inflammatory markers remain elevated. Patient did receive 2 L saline bolus. Repeat labs in the morning, prognosis is guarded for this patient. 06/17/2021 Patient is seen in follow-up continues to be monitored closely in the ICU with multiple medical consultations following. Prognosis is extremely guarded. Patient's respiratory status significantly worsened requiring mechanical ventilation and intubation and currently patient is sedated. White blood count is worsened at 26.1 and hemoglobin is 12.2, d-dimer is 27.06, ABG is 7.16 pH with a pCO2 of 57 and a pO2 of 68 and bicarb is 20, sodium is 140 with a potassium of 5.0 and current creatinine has worsened at 2.29 pro calcitonin is 24.40. Infectious disease along with pulmonary field organizer following closely. Patient continues on cefepime along with eliquis, vitamin and zinc supplements and patient has finished Baricitinib. Patient was on oral Decadron and is being transitioned back to IV dexamethasone along with Diflucan. Patient was given a dose of IV Lasix and nephrology has been consulted. Cardiology consulted as well and patient is currently on amiodarone drip along with Cleviprex and currently sedated on propofol. Patient also has norepinephrine drip as well. Patient being started on sodium bicarb drip. Patient also has low-grade fevers. 06/18/2021 Patient is seen in follow up in the ICU and maintained on mechanical vent intubated and sedated. Patient continues on NImbex, sodium bicarb, amiodarone, and being started on fentanyl as IV lasix drip with multiple medical consultations following. Kidney functions continue to deteriorate with nephrology following closely. Discussion being had about possible hemodialysis if kidney functions continue to worsen. Creatinine currently 3.69 today. 06/19/2021 Patient remains on mechanical vent with minimal urine output note and extensive volume overload with worsening kidney functions and would like to proceed with hemodialysis catheter placement with nephrology following closely. Multiple consultations following and Dr. Mann consulted for hemodialysis catheter placement and will hold eliquis. Amiodarone being transitioned to oral with cardiology following closely. Continue close monitoring in the ICU. Overall Prognosis remains extremely poor and guarded. 06/20/2021 Patient is seen and evaluated in follow-up continue to be closely monitored with multiple medical consultations following in the ICU. Patient remains intubated on mechanical ventilation and sedated. Kidney functions continue to worsen and patient is an extensive volume overload and has received dialysis catheter today and will initiate hemodialysis. Patient was maintained on IV Lasix drip which is being transitioned to IV push Lasix twice daily with nephrology following closely. Patient also continues on IV cefepime along with dexamethasone, vitamin and zinc supplements and continues on eliquis as well. White blood count 11.9 and hemoglobin is 9.6, platelets are 61 and d-dimer is 8.40. Sodium is 135 with a potassium of 5.0 and current BUN is 99 with a creatinine of 5.23. LDH is 1015 and pro calcitonin is 13.10. Prognosis remains extremely guarded. 06/21/2021 Patient is evaluated in follow up this morning and continues to be monitored closely in the ICU. On mechanical vent with an FI02 of 50%. Currently receiving hemodialysis and will likely require daily treatments if tolerated for extensive overload. Patient continues on IV lasix twice daily along with Nimbex, propofol, and fentanyl. Chest xray done today. Patient continues on IV cefepime with most recent repeat sputum culture revealing no growth. Infectious disease following closely. 06/22/2021 Patient remains intubated in the ICU, on ventilatory before meals settings, tidal volume 450, 50% FiO2, PEEP of 16, saturating 80%. ABG showing pO2 66, pCO2 42, pH 7.32, he was dialyzed for 2-1/2 L removed., He is making urine He remains sedated with propofol and he is paralyzed with Nimbex. His sputum is growing pseudomonas receiving antimicrobial therapy of cefepime, ID is following. No fever this morning, blood pressure 09/26/1938/50. Chest x-ray showing extensive bilateral airspace disease, correlate for pneumonia or ARDS. In atrial fibrillation with controlled ventricular rate 06/23/2021 Patient remains intubated on ventilatory support in the ICU, currently on assist control, 55% FiO2, PEEP of 14, TG 450. ABG this morning showing pH 7.31, pCO2 43, pO2 54, bicarb 22. O2 saturations marginal 90-91%, blood pressure stable. He remains in atrial fibrillation, with controlled ventricular rate, anticoagulated with Eliquis. Labs today show sodium 135, creatinine 4.18, WBC 12.7, hemoglobin 8.3 platelets 40. He is on IV Lasix, low urine output 270 ml yesterday Continue systemic steroids of Decadron 6 daily, eyes receiving antimicrobial therapy with cefepime, and fluconazole. sedated with fentanyl. Review of systems: Unable to complete a full review of symptoms as patient is sedated and on a ventilator. Active Medications Acetaminophen (Acetaminophen Tab 325 Mg Tab) 650 mg PO Q6HR PRN PRN Reason: Fever and/ or Mild Pain Last Admin: 06/14/21 22:22 Dose: 650 mg Documented by: Albuterol Sulfate (Albuterol Hfa Inhaler) 2 puff INHALATION RT-QID [facility] Last Admin: 06/20/21 19:41 Dose: 2 puff Documented by: Albuterol Sulfate (Albuterol Hfa Inhaler) 2 puff INHALATION RT-QID PRN PRN Reason: Shortness Of Breath Or Wheezing Last Admin: 06/15/21 03:30 Dose: 2 puff Documented by: Amiodarone HCl (Amiodarone 200 Mg Tab) 200 mg PO BID [facility] Last Admin: 06/21/21 08:39 Dose: 200 mg Documented by: Apixaban (Apixaban 5 Mg Tab) 5 mg PO BID [facility]; Protocol Last Admin: 06/21/21 08:41 Dose: 5 mg Documented by: Artificial Tears (Artificial Tears-Hypromellose Drops 15 Ml Btl) 2 drops BOTH EYES Q4HR [facility] Last Admin: 06/21/21 04:31 Dose: 2 drops Documented by: Ascorbic Acid (Ascorbic Acid 500 Mg Tab) 500 mg PO DAILY [facility] Last Admin: 06/21/21 08:39 Dose: 500 mg Documented by: Benzocaine/Menthol (Benzocaine/Menthol Lozeng 1 Each Lozenge) 1 each MUCOUS MEM Q4HR PRN PRN Reason: Sore Throat Chlorhexidine Gluconate (Chlorhexidine Gluconate 15 Ml Cup) 15 ml MUCOUS MEM BID [facility] Last Admin: 06/21/21 08:27 Dose: 15 ml Documented by: Cholecalciferol (Cholecalciferol 25 Mcg (1000 Iu) Tablet) 25 mcg PO DAILY [facility] Last Admin: 06/21/21 08:39 Dose: 25 mcg Documented by: Cyanocobalamin (Cyanocobalamin 500 Mcg Tab) 1,000 mcg PO DAILY [facility] Last Admin: 06/21/21 08:39 Dose: 1,000 mcg Documented by: Dexamethasone Sodium Phosphate (Dexamethasone Sod Phosphate 10 Mg/Ml 1 Ml Vial) 6 mg IV DAILY [facility] Last Admin: 06/21/21 08:26 Dose: 6 mg Documented by: Fluconazole (Fluconazole 100 Mg Tab) 100 mg PO DAILY [facility] Last Admin: 06/21/21 08:39 Dose: 100 mg Documented by: Furosemide (Furosemide 10 Mg/Ml 10 Ml Vial) 60 mg IV Q12HR [facility] Last Admin: 06/21/21 08:23 Dose: 60 mg Documented by: Propofol 1,000 mg/ IV Solution 100 mls @ 0 mls/hr IV .Q0M [facility]; Protocol Last Admin: 06/21/21 07:53 Dose: 50 mcg/kg/min, 37.44 mls/hr Documented by: Norepinephrine Bitartrate 8 mg (/ Sodium Chloride) 258 mls @ 9.482 mls/hr IV .Q24H [facility]; Protocol Last Admin: 06/20/21 16:41 Dose: Not Given Documented by: Cisatracurium Besylate 200 mg/ (Sodium Chloride) 200 mls @ 5.88 mls/hr IV .Q24H [facility]; Protocol Last Admin: 06/21/21 01:30 Dose: 2 mcg/kg/min, 11.76 mls/hr Documented by: Cefepime HCl 1 gm/ Sodium (Chloride) 50 mls @ 12.5 mls/hr IVPB Q12HR [facility] Last Admin: 06/21/21 08:26 Dose: 12.5 mls/hr Documented by: Fentanyl Citrate 1,000 mcg/ (Sodium Chloride) 100 mls @ 2.765 mls/hr IV .Q24H [facility] ; Protocol Last Titration: 06/21/21 08:07 Dose: 0.6 mcg/kg/hr, 6.636 mls/hr Documented by: Metoclopramide HCl (Metoclopramide 5 Mg/Ml 2 Ml Vial) 5 mg IVP Q8H [facility] Last Admin: 06/21/21 04:31 Dose: 5 mg Documented by: Pantoprazole Sodium (Pantoprazole 40 Mg/10 Ml Vial) 40 mg IVP BID [facility] Last Admin: 06/21/21 08:25 Dose: 40 mg Documented by: Senna (Sennosides 8.6 Mg Tab) 8.6 mg PO BID [facility] Last Admin: 06/21/21 08:39 Dose: 8.6 mg Documented by: Zinc Sulfate (Zinc Sulfate 220 Mg Cap) 220 mg PO DAILY [facility] Last Admin: 06/21/21 08:39 Dose: 220 mg Documented by: Physical exam: Gen: This is a 75-year-old male sedated and intubated on propofol and mechanical ventilation. HEENT: Head is atraumatic, normocephalic. Pupils equal, round. Sclerae is anicteric. NECK: Supple. No JVD. No lymphadenopathy. No thyromegaly. LUNGS: Diminished breath sounds bilaterally with scattered coarse rhonchi and crackles noted. Extensive subcutaneous emphysema noted. HEART: Irregular S1, S2 are muffled ABDOMEN: Soft. obese. Bowel sounds are present. No masses. No guarding or rigidity noted. EXTREMITIES: Extensive pitting edema noted of upper and lower bilateral extremities and much of the body. NEUROLOGICAL: Patient is intubated and sedated Assessment: Acute COVID-19 infection with acute component of interstitial pneumonia, bilateral , possibly ARDS with acute hypoxic respiratory failure and possible sepsis secondary to COVID-19 Status post mechanical ventilation and intubation after failed BIPAP on 06/15/2021 secondary to above Subcutaneous emphysema Pseudomonas aeruginosa growing in sputum acute renal failure likely ATN with worsening kidney functions and minimal urine output requiring hemodialysis volume overload secondary to ARF metabolic acidosis afib with RVR currently rate controlled on oral amiodarone and metoprolol Lactic acidosis secondary to above Initial sputum culture showing Essence albicans and pseudomonas aeruginosa and maintained on IV cefepime Oral candidiasis started on Diflucan, sputum cultures from 06/02/2021 Essence albicans Extensive interstitial bilateral COVID-19 pneumonia Elevated white blood count possibly secondary to above Possible subsegmental pulmonary embolism ruled out History of atrial fibrillation Anxiety Remote history of nicotine dependence GI prophylaxis: Protonix DVT prophylaxis: On eliquis Full code Plan: remains ventilatory support in the ICU, 55% FiO2, TV 450, PEEP 14, sedated with fentanyl Oliguric, nephrology following, plan for dialysis today, continues on IV Lasix 60 twice a day Antimicrobial therapy with cefepime and fluconazole, Pseudomonas growing in sputum, ID following Remains in atrial fibrillation, ventricular rate controlled on Eliquis and Lopressor Continues on Decadron, vitamin C D and zinc supplements, completed Baricitinab Chest x-ray stable, extensive subcutaneous emphysema possible ARDS, no pneumothorax or pleural effusion Pulmonary and ID following. Prognosis is extremely guarded We will continue to follow, further recommendations pending clinical course Objective - Vital Signs Vital signs: Vital Signs Temp 97.7 F 06/23/21 08:00 Pulse 96 06/23/21 11:00 Resp 36 H 06/23/21 11:00 BP 119/69 06/23/21 03:00 Pulse Ox 90 L 06/23/21 11:00 Intake & Output 06/22/21 06/23/21 06/23/21 18:59 06:59 18:59 Intake Total 3164.162 6251 365.185 Output Total 2575 50 25 Balance -1427.388 976 340.185 Weight 118 kg Intake: IV 353 276 115 0.9 220 240 100 Cefepime 2 gm In Sodium 100 Chloride 0.9% 100 ml @ 25 mls/hr IVPB Q8HR [facility] Rx# :[id number] Pressure bag 33 36 15 Intake, IV Titration 594.612 600 180.185 Amount Cisatracurium 200 mg In 196.588 200 Sodium Chloride 0.9% 180 ml @ 1 MCG/KG/MIN 5.88 mls/hr IV .Q24H [facility] Rx#: [id number] fentaNYL (PF). 1,000 mcg 100 80.185 In Sodium Chloride 0.9% 80 ml @ 0.25 MCG/KG/HR 2. 765 mls/hr IV .Q24H [facility] Rx#:[id number] propofoL 1,000 mg In 398.024 300 100 Empty Bag 1 bag @ Titrate IV .Q0M [facility] Rx#: [id number] Tube Feeding 110 120 40 Other 90 30 30 Output: Urine 75 50 25 Hemodialysis 2500 Other: Voiding Method Indwelling Catheter Indwelling Catheter Indwelling Catheter # Voids 0 ABP, PAP, CO, CI - Last Documented Arterial Blood Pressure 134/63 - Labs CBC & Chem 7: 06/23/21 03:58 06/23/21 03:58 Labs: Abnormal Lab Results - Last 24 Hours (Table) 06/22/21 06/23/21 06/23/21 Range/Units 18:57 03:57 03:58 WBC 12.7 H (3.8-10.6) k/uL RBC 2.77 L (4.30-5.90) m/uL Hgb 8.3 L (13.0-17.5) gm/dL Hct 25.2 L (39.0-53.0) % Plt Count 40 L (150-450) k/uL Neutrophils # 11.9 H (1.3-7.7) k/uL Lymphocytes # 0.5 L (1.0-4.8) k/uL D-Dimer (<0.60) mg/L FEU ABG pH (7.35-7.45) ABG pO2 (83-108) mmHg ABG O2 Saturation (94-97) % Sodium (137-145) mmol/L Carbon Dioxide (22-30) mmol/L BUN (9-20) mg/dL Creatinine (0.66-1.25) mg/dL POC Glucose (mg/dL) 111 H 103 H (75-99) mg/dL Calcium (8.4-10.2) mg/dL Phosphorus (2.5-4.5) mg/dL Lactate Dehydrogenase (313-618) U/L C-Reactive Protein (<1.0) mg/dL 06/23/21 06/23/21 06/23/21 Range/Units 03:58 03:58 04:00 WBC (3.8-10.6) k/uL RBC (4.30-5.90) m/uL Hgb (13.0-17.5) gm/dL Hct (39.0-53.0) % Plt Count (150-450) k/uL Neutrophils # (1.3-7.7) k/uL Lymphocytes # (1.0-4.8) k/uL D-Dimer 9.68 H (<0.60) mg/L FEU ABG pH (7.35-7.45) ABG pO2 (83-108) mmHg ABG O2 Saturation (94-97) % Sodium 135 L (137-145) mmol/L Carbon Dioxide 19 L (22-30) mmol/L BUN 69 H (9-20) mg/dL Creatinine 4.18 H (0.66-1.25) mg/dL POC Glucose (mg/dL) (75-99) mg/dL Calcium 7.9 L (8.4-10.2) mg/dL Phosphorus 7.6 H (2.5-4.5) mg/dL Lactate Dehydrogenase 730 H (313-618) U/L C-Reactive Protein 8.5 H (<1.0) mg/dL 06/23/21 Range/Units 05:34 WBC (3.8-10.6) k/uL RBC (4.30-5.90) m/uL Hgb (13.0-17.5) gm/dL Hct (39.0-53.0) % Plt Count (150-450) k/uL Neutrophils # (1.3-7.7) k/uL Lymphocytes # (1.0-4.8) k/uL D-Dimer (<0.60) mg/L FEU ABG pH 7.31 L (7.35-7.45) ABG pO2 54 L* (83-108) mmHg ABG O2 Saturation 86.7 L (94-97) % Sodium (137-145) mmol/L Carbon Dioxide (22-30) mmol/L BUN (9-20) mg/dL Creatinine (0.66-1.25) mg/dL POC Glucose (mg/dL) (75-99) mg/dL Calcium (8.4-10.2) mg/dL Phosphorus (2.5-4.5) mg/dL Lactate Dehydrogenase (313-618) U/L C-Reactive Protein (<1.0) mg/dL Microbiology - Last 24 Hours (Table) 06/22/21 01:39 Gram Stain - Preliminary Sputum Sputum Culture - Preliminary
--- NOTE | 2021-06-23 13:54 | P.PN ---
Subjective Progress Note Date: 06/23/21 Principal diagnosis: Acute hypoxic respiratory failure secondary to COVID-19 pneumonia. 06/16/2021, the patient is already intubated and on a mechanical ventilator. He was brought up to the intensive care unit yesterday. He was significantly short of breath and he was placed on BiPAP which was kept on for several hours and he was unable to stabilize and at that point we decided to proceed with intubation mechanical ventilation. 2 triple-lumen catheter nausea none was also established. This morning, the patient is on propofol which is running at 50 mL an hour and the patient is also requiring dialysis and he is on the backs running at 1 mcg/kg per minute. He is quite suggestive mechanical ventilator. He is currently on assist control mode at the rate of 36 and a tidal volume of 400 and FiO2 of 75% with a PEEP of 16. Blood gases showed a pH of 7.15 with a pCO2 of 71 and pO2 of 107. The patient's chest x-ray from today is showing diffuse bilateral pulmonary infiltrates consistent with pneumonia related to COVID-19/ARDS. Orotracheal tube is in a good location. Orogastric tube was also and good location. The white cell count is up to 44.2. Note that earlier sputum samples that were collected on this patient from 06/02/2021 was consistent with pseudomonas aeruginosa and Essence. For now, the patient is on IV cefepime at a dose of 2 g every 12 hours. Repeat cultures were sent. Note that the inflammatory markers on this patient indicate a d-dimer of more than 34, LDH level was 2277 from 06/15/2021, CRP level was 4.6. The throat calcitonin level was 0.03. I'm not absolutely sure if the patient is infected. That pseudomonal culture is rather old. Nevertheless he has developed some leukocytosis and based on a previous pseudomonal growth, cover the patient with IV cefepime 2 g every 12 hours. The patient is also on prednisone at a dose of 40 mg by mouth daily. He was also given Baricitinib which she completed. He developed an extensive oropharyngeal candidiasis and the patient is currently on Diflucan. Afebrile. Hemodynamically, the patient is requiring pressors and the patient is currently on 0.15 mcg/kg per minute of norepinephrine infusion. IV fluids as in the form of normal saline at the rate of 50 mL an hour. The patient received a total of 2 L of normal saline bolus yesterday. The patient is currently nothing by mouth and enteral feeding has not been initiated. Patient was reevaluated today on 06/17/2021, patient remains intubated and mechanically ventilated. Vent settings are assist control rate of 36, volume 400 FiO2 60% PEEP of 14. ABG showed a pO2 of 68 pCO2 of 57 pH of 7.16. Hence the ventilator was changed to volume of 430 increased the flow to 70 L/m decreased FiO2 to 55%. Drips include propofol at 50 mcg/kg/m, amiodarone at 0.5 mg/m Nimbex at 1, norepinephrine at 0.2 mcg/kg/m, IV fluid at 1 50 mL per hour. Patient remains sedated, paralyzed, no major change in the last 24 hours. Chest x-ray continues to show bilateral infiltrates, not much of a change. WBC count is 26.1 hemoglobin is 12.2 d-dimer is 27.6. Electrolytes were reviewed bicarb is 19 BUN is 39 creatinine 2.29, this is a dramatic change in his renal profile, hence nephrology was consulted pro calcitonin is 24.4. Sputum is positive for Pseudomonas and Essence. Patient was intubated on 06/15 remains on Solu-Medrol at 60 mg every 6 hours, he was on baricitinib, , and this was discontinued Patient was reevaluated today on 06/17/2021, remains in the ICU, intubated and mechanically ventilated. Vent settings are assist control rate of 36 to volume 430, FiO2 55% PEEP of 14. ABG showed a pO2 of 66 pCO2 of 48 pH of 7.26. CBC is relatively normal WBC of 16.4 hemoglobin is 10.8. D-dimer 17.2. Renal profile is significantly worse today, BUN is 57 creatinine 3.69. LDH is 09/16/2003. Slightly improved compared to yesterday and the day before. Drips include amiodarone at 0.5, propofol at 50 and Nimbex at 1, and I'm adding fentanyl since the patient is on Nimbex at 0.25 mcg/kg/m. Patient was seen by nephrology yesterday, and sodium bicarb was added, Lasix was also added however the patient's renal status has dramatically worsened over the last 24 hours. His labs were reviewed today, pro calcitonin remains high, his d-dimer is down to 17.2, patient is on Eliquis at 5 mg twice a day, is also on cefepime and fluconazole. Patient is oliguric, and not improving with Lasix challenges as ordered by nephrology, hence I believe the patient will eventually require hemodialysis. His urine output is no more than 15 mL/h in spite of diuretics. S x-ray continues to show bilateral interstitial infiltrates consistent with CO VID-19 pneumonia. On June 22, 2021, patient is seen in follow-up in intensive care unit, patient remains intubated, sedated and paralyzed on mechanical ventilator, on assist- control mode of ventilation with a rate at 36, tidal volumes 450, FiO2 55% and PEEP of 14, this morning's blood gas shows pO2 of 56, pCO2 43, and pH of 7.30, this was done and FiO2 of 50% and subsequently FiO2 has been increased to 55%, his pulse ox is 94-96%. Patient is currently 0.9 normal saline every 20 ML per hour, fentanyl infusion at 0.6 mics per kilo per hour, Diprivan is a 50 mics per kilo per minute, Nimbex is currently at 2 mics per kilo per minute. He is on tube feedings with vital AF at 10 ML per hour, trickle feedings have been started yesterday, residuals have not been checked, patient has been on IV Reglan, 5 mg every 8 hours, he is receiving Senokot-S, abdomen is soft, bowel sounds are hypoactive, patient has not passed a bowel movement yet, however he is been tolerating tube feedings at a low rate. He remains on Eliquis, remains in atrial fibrillation with a controlled rate. Patient is currently on dexamethasone 6 mg daily, is on IV Lasix 60 mg twice daily, and he has been getting daily hemodialysis treatments. Yesterday he had hemodialysis would removal of 2 L of fluid, today 2-1/2 L of fluid was removed. Patient is in -1.8 L over the last 24 hours. Today's chest x-ray shows diffuse subcutaneous emphysema. Subcutaneous emphysema was noted to be extensive. Today's white blood cell count is 14.0, hemoglobin is 8.9, d-dimer is 11.73, sodium is 134, potassium is 4.5, chloride is 105, CO2 is 20, B1 of 79, creatinine of 4.6, LDH is 783, and CRP is 5.8. Patient remains on combination of Diflucan and cefepime, his pro calcitonin level was improving and was down to 13.1 on 03/2021. Repeat sputum culture has been sent, initial sputum culture from 06/02/2021 showed pseudomonas aeruginosa and Essence albicans. Patient was reevaluated today on 06/23/2021, remains in the ICU, intubated and mechanically ventilated. Patient is an assist-control rate of 36, tidal volume 450, FiO2 50% and PEEP of 14 ABG showed a pO2 of 54 pCO2 of 43 pH of 7.31. Patient remains on Nimbex, propofol, fentanyl, he is also on Eliquis for his atrial fibrillation although his rate is well-controlled. Patient received hemodialysis yesterday, and removed 2.5 L, however no plans to dialyze the patient today. Remains on vital AF, rate is being gradually increased to reach goal. No residuals, patient is on stool softeners. Chest x-ray continues to show improvement in his bilateral infiltrates, however he continues to have subcutaneous emphysema but no clear-cut evidence of pneumothorax or pneumomediastinum. WBC count today is 12.7 hemoglobin is 8.3 d-dimer is 9.68. LDH is down to 730, improving. and C-reactive protein is 8.5, little higher compared to the last few days. Electrolytes were noted to be normal however his BUN is 69 creatinine 4.18. Patient remains on the COVID-19 cocktail, he is on Decadron 6 mg IV push daily, he is also on Diflucan and cefepime. Pro calciton in level seems to be coming down. His initial sputum cultures were positive for Pseudomonas and Essence. Objective - Vital Signs Vital signs: Vital Signs Temp 98.4 F 06/23/21 12:00 Pulse 86 06/23/21 12:00 Resp 36 H 06/23/21 12:00 BP 119/69 06/23/21 03:00 Pulse Ox 89 L 06/23/21 12:00 Intake & Output 06/22/21 06/23/21 06/23/21 18:59 06:59 18:59 Intake Total 9929.319 5968 552.895 Output Total 2575 50 40 Balance -1427.388 976 512.895 Weight 118 kg Intake: IV 353 276 138 0.9 220 240 120 Cefepime 2 gm In Sodium 100 Chloride 0.9% 100 ml @ 25 mls/hr IVPB Q8HR [facility] Rx# :[id number] Pressure bag 33 36 18 Intake, IV Titration 594.612 600 294.895 Amount Cisatracurium 200 mg In 196.588 200 Sodium Chloride 0.9% 180 ml @ 1 MCG/KG/MIN 5.88 mls/hr IV .Q24H [facility] Rx#: [id number] fentaNYL (PF). 1,000 mcg 100 94.895 In Sodium Chloride 0.9% 80 ml @ 0.25 MCG/KG/HR 2. 765 mls/hr IV .Q24H [facility] Rx#:[id number] propofoL 1,000 mg In 398.024 300 200 Empty Bag 1 bag @ Titrate IV .Q0M [facility] Rx#: [id number] Tube Feeding 110 120 60 Other 90 30 60 Output: Urine 75 50 40 Hemodialysis 2500 Other: Voiding Method Indwelling Catheter Indwelling Catheter Indwelling Catheter # Voids 0 ABP, PAP, CO, CI - Last Documented Arterial Blood Pressure 129/59 - Exam Physical Exam: Revealed a 75-year-old white male intubated, sedated, paralyzed, on mechanical ventilation. Head: Atraumatic, normocephalic. HEENT:[Neck is supple.] [No neck masses.] [No thyromegaly.] [No JVD.] Endotracheal tube and orogastric tube are intact. Chest: Symmetrical chest expansion, good airflow bilaterally, however crackles and rhonchi noted at the bases, subcutaneous emphysema is palpable anteriorly and laterally over the chest wall. Cardiac Exam: Distant S1 and S2, no S3 gallop. No murmur. Abdomen: [Obese, Soft, nontender, no megaly, no rebound, no guarding, normal bowel sounds.] Extremities: [No clubbing, 2+ bipedal edema, no cyanosis.] Neurological Exam: Could not be assessed, patient is sedated and paralyzed. Psychiatric: Could not be assessed. Patient is sedated and paralyzed. Skin: No rashes. - Labs CBC & Chem 7: 06/23/21 03:58 06/23/21 03:58 Labs: Abnormal Lab Results - Last 24 Hours (Table) 10/09/21 10/10/21 10/10/21 Range/Units 18:57 03:57 03:58 WBC 12.7 H (3.8-10.6) k/uL RBC 2.77 L (4.30-5.90) m/uL Hgb 8.3 L (13.0-17.5) gm/dL Hct 25.2 L (39.0-53.0) % Plt Count 40 L (150-450) k/uL Neutrophils # 11.9 H (1.3-7.7) k/uL Lymphocytes # 0.5 L (1.0-4.8) k/uL D-Dimer (<0.60) mg/L FEU ABG pH (7.35-7.45) ABG pO2 (83-108) mmHg ABG O2 Saturation (94-97) % Sodium (137-145) mmol/L Carbon Dioxide (22-30) mmol/L BUN (9-20) mg/dL Creatinine (0.66-1.25) mg/dL POC Glucose (mg/dL) 111 H 103 H (75-99) mg/dL Calcium (8.4-10.2) mg/dL Phosphorus (2.5-4.5) mg/dL Lactate Dehydrogenase (313-618) U/L C-Reactive Protein (<1.0) mg/dL 06/23/21 06/23/21 06/23/21 Range/Units 03:58 03:58 04:00 WBC (3.8-10.6) k/uL RBC (4.30-5.90) m/uL Hgb (13.0-17.5) gm/dL Hct (39.0-53.0) % Plt Count (150-450) k/uL Neutrophils # (1.3-7.7) k/uL Lymphocytes # (1.0-4.8) k/uL D-Dimer 9.68 H (<0.60) mg/L FEU ABG pH (7.35-7.45) ABG pO2 (83-108) mmHg ABG O2 Saturation (94-97) % Sodium 135 L (137-145) mmol/L Carbon Dioxide 19 L (22-30) mmol/L BUN 69 H (9-20) mg/dL Creatinine 4.18 H (0.66-1.25) mg/dL POC Glucose (mg/dL) (75-99) mg/dL Calcium 7.9 L (8.4-10.2) mg/dL Phosphorus 7.6 H (2.5-4.5) mg/dL Lactate Dehydrogenase 730 H (313-618) U/L C-Reactive Protein 8.5 H (<1.0) mg/dL 06/23/21 Range/Units 05:34 WBC (3.8-10.6) k/uL RBC (4.30-5.90) m/uL Hgb (13.0-17.5) gm/dL Hct (39.0-53.0) % Plt Count (150-450) k/uL Neutrophils # (1.3-7.7) k/uL Lymphocytes # (1.0-4.8) k/uL D-Dimer (<0.60) mg/L FEU ABG pH 7.31 L (7.35-7.45) ABG pO2 54 L* (83-108) mmHg ABG O2 Saturation 86.7 L (94-97) % Sodium (137-145) mmol/L Carbon Dioxide (22-30) mmol/L BUN (9-20) mg/dL Creatinine (0.66-1.25) mg/dL POC Glucose (mg/dL) (75-99) mg/dL Calcium (8.4-10.2) mg/dL Phosphorus (2.5-4.5) mg/dL Lactate Dehydrogenase (313-618) U/L C-Reactive Protein (<1.0) mg/dL Microbiology - Last 24 Hours (Table) 06/22/21 01:39 Gram Stain - Preliminary Sputum Sputum Culture - Preliminary Aspergillus species Assessment and Plan Assessment: Acute hypoxic respiratory failure secondary to COVID-19 pneumonia, patient was intubated on 06/15/2011/03/2020, remains intubated and mechanically ventilated. Acute hypercapnic respiratory failure secondary to COVID-19 pneumonia and ARDS. Secondary to COVID-19 pneumonia Suspect superimposed pseudomonas aeruginosa pneumonia based on positive sputum cultures and elevated procalcitonin. Elevated inflammatory markers secondary to above. Paroxysmal atrial fibrillation Extensive oropharyngeal candidiasis,on Diflucan. Leukocytosis secondary to above. Sepsis and septic shock secondary to infection including COVID-19 pneumonia and suspect pseudomonas aeruginosa pneumonia. Acute kidney injury with acute renal failure secondary to COVID-19 infection, associated with oliguria, on hemodialysis Recommendation: Continue hemodialysis. Continue ventilatory support. Continue amiodarone. And Eliquis. Continue metoprolol. Continue present supportive care measures Continue enteral nutrition/feeding. Along with GI and DVT prophylaxis Continue Lasix along with hemodialysis. Patient is on 60 mg IV push every 12 hours. Continue COVID-19 cocktail. Continue nutritional support, Continue cefepime and Diflucan. Continue Decadron 6 mg IV push daily Condition remains critically ill Continue GI and DVT prophylaxis. Today I had a long discussion with his about his condition, and updated her on what is going on. And explained to her that I will recommend surgical co nsultation early next week for tracheostomy, PEG tube placement, and interventional radiology consult for placement of a PICC line and then we could discontinue his central line. seems to be agreeable to proceed with that plan. Critical care time is 30 minutes. Time with Patient: Greater than 30
[2021-06-23] MEDS: NOREPINEPHRINE 8 MG in SODIUM CHLORIDE 0.9% 250 ML IV SCH (15:02)
[2021-06-23 18:43] LABS: Glucose,Whole Blood 116 mg/dL (75-99)
[2021-06-23] MEDS: CEFEPIME 1 GM in SODIUM CHLORIDE 0.9% 50 ML IVPB SCH (20:05)
--- NOTE | 2021-06-24 02:28 | PN ---
PROGRESS NOTE DATE OF SERVICE: 06/23/2021 REASON FOR FOLLOWUP: Pneumonia. INTERVAL HISTORY: The patient is afebrile. The patient is hemodynamically stable. FiO2 is currently 55%. No significant purulent secretions in the ET or diarrhea rather the patient is constipated. Has been tolerating his tube feeds. PHYSICAL EXAMINATION: Blood pressure is 142/57 with a pulse of 86. Temperature 97.3. He is 93% on 55% FiO2. General description is an elderly male lying in bed in no distress. Respiratory system: Unlabored breathing, decreased intensity of breath sounds. No wheeze. Heart S1, S2. Regular rate and rhythm. Abdomen soft, no tenderness. LABS: Hemoglobin 8.1, white count 12.7, creatinine 4.18. Repeat sputum showing Aspergillus. DIAGNOSTIC IMPRESSION AND PLAN: Patient with acute respiratory failure secondary to the Covid 19 pneumonia in this patient failed to be extubated. Patient now with a component of secondary bacterial pneumonia. Sputum was positive for Pseudomonas. Repeat showing Aspergillus which could be colonized though underlying pneumonia less likely but not entirely excluded. We will discuss further with surgery. May benefit from a CT. For now, continue with cefepime. Monitor clinical course closely. Continue supportive care. MMODL / IJN: [id number] /
[2021-06-24] MEDS: METOCLOPRAMIDE 5 MG/ML 2 ML VIAL IVP SCH ×3 (03:29→20:27)
[2021-06-24] MEDS: ARTIFICIAL TEARS-HYPROMELLOSE DROPS 15 ML BTL BOTH EYES SCH ×5 (03:29→20:29)
[2021-06-24 03:53] LABS: Basophils % (A) 0 %; Eosinophils # (A) 0.1 k/uL (0-0.7); Eosinophils % (A) 1 %; HCT 25.2 % (39.0-53.0); Lymphocytes # (A) 0.3 k/uL (1.0-4.8); Lymphocytes % (A) 3 %; MCH 29.1 pg (25.0-35.0); MCHC 31.8 g/dL (31.0-37.0); MCV 91.4 fL (80.0-100.0); Mean Platelet Volume 11.5; Monocytes # (A) 0.3 k/uL (0-1.0); Monocytes % (A) 2 %; Neutrophils # (A) 11.2 k/uL (1.3-7.7); Neutrophils % (A) 94 %; Platelet Count 43 k/uL (150-450); RBC 2.76 m/uL (4.30-5.90); RDW 14.3 % (11.5-15.5); WBC 11.9 k/uL (3.8-10.6)
[2021-06-24 04:02] LABS: Calcium 8.2 mg/dL (8.4-10.2); Potassium 5.1 mmol/L (3.5-5.1)
[2021-06-24 04:23] LABS: INR 1.1 (<1.2)
[2021-06-24 04:24] LABS: Prothrombin Time 11.9 sec (9.0-12.0)
[2021-06-24 05:33] LABS: ABG HCO3 19 mmol/L (21-25); ABG Oxygen Saturation 92.2 % (94-97); ABG PCO2 40 mmHg (35-45); ABG PH 7.28 (7.35-7.45); ABG PO2 68 mmHg (83-108); ABG TCO2 20 mmol/L (19-24)
[2021-06-24 05:42] LABS: Allen Test Performed? no
[2021-06-24] MEDS: CALCIUM ACETATE 667 MG TAB PO SCH ×3 (05:53→17:12)
--- NOTE | 2021-06-24 07:16 | XR ---
EXAMINATION TYPE: XR chest 1V portable DATE OF EXAM: 06/24/2021 COMPARISON: Chest x-ray 06/23/2021 HISTORY: Abnormal chest x-ray, intubated TECHNIQUE: Single frontal view of the chest is obtained. FINDINGS: Endotracheal tube, left subclavian central venous catheter, NG tube are overlying appropri ate and stable positions. Extensive subcutaneous emphysema is present and is progressed in the interv al. There are changes of pneumomediastinum that have developed in the interval. No evident pneumothor ax. No pleural effusion identified. Bilateral airspace disease is diffuse and similar to prior exam. Cardiac mediastinal silhouette shows a similar appearance. IMPRESSION: Interval development of pneumomediastinum is suspected. Correlate for pneumonia, ARDS, t here is progression in subcutaneous emphysema.
[2021-06-24] MEDS: ALBUTEROL HFA INHALER INHALATION SCH ×4 (07:54→20:17)
[2021-06-24] MEDS: DEXAMETHASONE SOD PHOSPHATE 10 MG/ML 1 ML VIAL IV SCH (08:50)
[2021-06-24] MEDS: CHLORHEXIDINE GLUCONATE 15 ML CUP MUCOUS MEM SCH ×2 (08:50→20:27)
[2021-06-24] MEDS: METOPROLOL TARTRATE 25 MG TAB PO SCH (08:51)
[2021-06-24] MEDS: APIXABAN 5 MG TAB PO SCH (08:51)
[2021-06-24] MEDS: CYANOCOBALAMIN 500 MCG TAB PO SCH (08:51)
[2021-06-24] MEDS: SENNOSIDES-DOCUSATE SODIUM 1 EACH TAB PO SCH (08:51)
[2021-06-24] MEDS: AMIODARONE 200 MG TAB PO SCH ×2 (08:51→20:28)
[2021-06-24] MEDS: CHOLECALCIFEROL 25 MCG (1000 IU) TABLET PO SCH (08:51)
[2021-06-24] MEDS: PANTOPRAZOLE 40 MG/10 ML VIAL IVP SCH ×2 (08:51→20:28)
[2021-06-24] MEDS: bisacodyL 10 MG SUPP RECTAL SCH (08:51)
[2021-06-24] MEDS: ZINC SULFATE 220 MG CAP PO SCH (08:51)
[2021-06-24] MEDS: FLUCONAZOLE 100 MG TAB PO SCH (08:51)
[2021-06-24] MEDS: ASCORBIC ACID 500 MG TAB PO SCH (08:51)
--- NOTE | 2021-06-24 08:51 | P.PN ---
Subjective Patient is seen in follow-up for acute kidney injury, currently hemodialysis dependent. Oliguric. Intubated. On 55% FiO2. Blood pressure stable. No changes overnight. Vital signs are stable. General: Intubated. Regular rate and rhythm. Scrotal edema noted. No abdominal distention. Objective - Vital Signs Vital signs: Vital Signs Temp 97.5 F L 06/24/21 04:00 Pulse 115 H 06/24/21 07:00 Resp 36 H 06/24/21 07:00 BP 114/72 06/24/21 03:00 Pulse Ox 94 L 06/24/21 07:00 Intake & Output 06/23/21 06/24/21 06/24/21 18:59 06:59 18:59 Intake Total 1089.946 996.099 Output Total 90 70 Balance 999.946 926.099 Weight 121.2 kg Intake: IV 276 299 0.9 240 260 Pressure bag 36 39 Intake, IV Titration 543.946 227.099 Amount fentaNYL (PF). 1,000 mcg 143.946 42.139 In Sodium Chloride 0.9% 80 ml @ 0.25 MCG/KG/HR 2. 765 mls/hr IV .Q24H [facility] Rx#:[id number] propofoL 1,000 mg In 400 184.96 Empty Bag 1 bag @ Titrate IV .Q0M [facility] Rx#: [id number] Tube Feeding 180 380 Other 90 90 Output: Urine 90 70 Other: Voiding Method Indwelling Catheter Indwelling Catheter ABP, PAP, CO, CI - Last Documented Arterial Blood Pressure 152/66 - Labs CBC & Chem 7: 06/24/21 03:35 06/24/21 03:35 Labs: Abnormal Lab Results - Last 24 Hours (Table) 06/23/21 06/24/21 06/24/21 Range/Units 18:41 03:35 03:35 WBC 11.9 H (3.8-10.6) k/uL RBC 2.76 L (4.30-5.90) m/uL Hgb 8.0 L (13.0-17.5) gm/dL Hct 25.2 L (39.0-53.0) % Plt Count 43 L (150-450) k/uL Neutrophils # 11.2 H (1.3-7.7) k/uL Lymphocytes # 0.3 L (1.0-4.8) k/uL ABG pH (7.35-7.45) ABG pO2 (83-108) mmHg ABG HCO3 (21-25) mmol/L ABG O2 Saturation (94-97) % Sodium 135 L (137-145) mmol/L Carbon Dioxide 18 L (22-30) mmol/L BUN 87 H (9-20) mg/dL Creatinine 5.05 H (0.66-1.25) mg/dL POC Glucose (mg/dL) 116 H (75-99) mg/dL Calcium 8.2 L (8.4-10.2) mg/dL 06/24/21 Range/Units 05:32 WBC (3.8-10.6) k/uL RBC (4.30-5.90) m/uL Hgb (13.0-17.5) gm/dL Hct (39.0-53.0) % Plt Count (150-450) k/uL Neutrophils # (1.3-7.7) k/uL Lymphocytes # (1.0-4.8) k/uL ABG pH 7.28 L (7.35-7.45) ABG pO2 68 L (83-108) mmHg ABG HCO3 19 L (21-25) mmol/L ABG O2 Saturation 92.2 L (94-97) % Sodium (137-145) mmol/L Carbon Dioxide (22-30) mmol/L BUN (9-20) mg/dL Creatinine (0.66-1.25) mg/dL POC Glucose (mg/dL) (75-99) mg/dL Calcium (8.4-10.2) mg/dL Microbiology - Last 24 Hours (Table) 06/22/21 01:39 Gram Stain - Preliminary Sputum Sputum Culture - Preliminary Aspergillus species Assessment and Plan Plan: Assessment: 1. Acute kidney injury secondary to ATN secondary to sepsis/covid-19 infection. Baseline creatinine is near 1. Currently hemodialysis dependent. Right femoral catheter placed June 20. Oliguric. 2. Volume overload. 3. Acute hypoxic respiratory failure secondary to covid-19 pneumonia and volume overload. 4. A. fib with RVR maintained on oral amiodarone. 5. Metabolic acidosis secondary to acute kidney injury. 6. Hyperphosphatemia secondary to acute kidney injury maintained on PhosLo. Plan: Hemodialysis today with goal 2-3 L UF. Stop Lasix. Continue to monitor renal function and urine output. Wean FiO2.
--- NOTE | 2021-06-24 10:35 | P.PN ---
Subjective Progress Note Date: 06/24/21 Principal diagnosis: COVID-19 pneumonia On June 22, 2021, patient is seen in follow-up in intensive care unit, patient remains intubated, sedated and paralyzed on mechanical ventilator, on assist-control mode of ventilation with a rate at 36, tidal volumes 450, FiO2 55% and PEEP of 14, this morning's blood gas shows pO2 of 56, pCO2 43, and pH of 7.30, this was done and FiO2 of 50% and subsequently FiO2 has been increased to 55%, his pulse ox is 94-96%. Patient is currently 0.9 normal saline every 20 ML per hour, fentanyl infusion at 0.6 mics per kilo per hour, Diprivan is a 50 mics per kilo per minute, Nimbex is currently at 2 mics per kilo per minute. He is on tube feedings with vital AF at 10 ML per hour, trickle feedings have been started yesterday, residuals have not been checked, patient has been on IV Reglan, 5 mg every 8 hours, he is receiving Senokot-S, abdomen is soft, bowel sounds are hypoactive, patient has not passed a bowel movement yet, however he is been tolerating tube feedings at a low rate. He remains on Eliquis, remains in atrial fibrillation with a controlled rate. Patient is currently on dexamethasone 6 mg daily, is on IV Lasix 60 mg twice daily, and he has been getting daily hemodialysis treatments. Yesterday he had hemodialysis would removal of 2 L of fluid, today 2-1/2 L of fluid was removed. Patient is in -1.8 L over the last 24 hours. Today's chest x-ray shows diffuse subcutaneous emphysema. Subcutaneous emphysema was noted to be extensive. Today's white blood cell count is 14.0, hemoglobin is 8.9, d-dimer is 11.73, sodium is 134, potassium is 4.5, chloride is 105, CO2 is 20, B1 of 79, creatinine of 4.6, LDH is 783, and CRP is 5.8. Patient remains on combination of Diflucan and cefepime, his pro calcitonin level was improving and was down to 13.1 on 06/20/2021. Repeat sputum culture has been sent, initial sputum culture from 06/02/2021 showed pseudomonas aeruginosa and Essence albicans. On 06/24/2021 patient seen in follow-up in intensive care unit, she remains sedated, intubated and paralyzed on mechanical ventilator, currently on assist control mode of ventilation with a rate 36, tidal lungs were 50, FiO2 of 55% and PEEP of 14, this morning's blood gas shows pO2 of 68, pCO2 of 40, and pH of 7.28. He is currently on 0.9 normal saline at a rate of 20 ML per hour, Diprivan is at 50 mics per kilo per minute, fentanyl is at 0.6 mics per kilo per hour, and Pneumovax is at 4 mics per kilo per minute, he was receiving vital high protein at 30 ML per hour however overnight he again started having high residuals, and this morning his tube feedings were placed on hold, and his OG tube was placed to suction with return of 800 mL of dark brownish colored gastric secretions. He has not had a bowel movement, he has been receiving suppositories, and stool softeners, he is also on Reglan 5 mg every 8 hours. He is having another hemodialysis session today with a goal of removing 3 L of fluid. Today's chest x-ray shows interval development of pneumomediastinum which actually has been noted on the chest x-rays a few days ago, and progression of subcutaneous emphysema. No evident pneumothorax. There is bilateral inspiratory disease which is diffuse and similar to previous chest x- ray. Patient currently remains on cefepime and Diflucan, his most recent sputum culture showed Aspergillus not fumigators, and the sputum culture from 06/02/2021 showed pseudomonas aeruginosa and Essence albicans. Patient has been afebrile, she is not any vasopressor support, today's labs have been reviewed s howing white blood cell count of 11.9 which is down from 12.7, hemoglobin is 8.0, platelets count is 43, his most recent d-dimer was 9.68, which was improved, today's d-dimer is still pending, sodium is 135, potassium is 5.1, chloride is 105, CO2 is 18, BUN is 87, and creatinine is 5.05. Today's in flammatory markers are still pending, his most recent pro calcitonin level from 06/20/2021 was elevated at 13.1. Patient isn't in atrial fibrillation with a controlled rate, he is currently on Eliquis for anticoagulation. His urine output has been quite minimal in the order of 0-10 ML per hour. He appears to be generally swollen. Objective - Vital Signs Vital signs: Vital Signs Temp 97.2 F L 06/24/21 08:00 Pulse 105 H 06/24/21 09:00 Resp 36 H 06/24/21 09:00 BP 114/72 06/24/21 03:00 Pulse Ox 93 L 06/24/21 09:00 Intake & Output 06/23/21 06/24/21 06/24/21 18:59 06:59 18:59 Intake Total 1089.946 996.099 300 Output Total 90 70 Balance 999.946 926.099 300 Weight 121.2 kg 121.2 kg Intake: IV 276 299 0.9 240 260 Pressure bag 36 39 Intake, IV Titration 543.946 227.099 300 Amount Cisatracurium 200 mg In 200 Sodium Chloride 0.9% 180 ml @ 1 MCG/KG/MIN 5.88 mls/hr IV .Q24H [facility] Rx#: [id number] fentaNYL (PF). 1,000 mcg 143.946 42.139 In Sodium Chloride 0.9% 80 ml @ 0.25 MCG/KG/HR 2. 765 mls/hr IV .Q24H [facility] Rx#:[id number] propofoL 1,000 mg In 400 184.96 100 Empty Bag 1 bag @ Titrate IV .Q0M [facility] Rx#: [id number] Tube Feeding 180 380 Other 90 90 Output: Urine 90 70 Other: Voiding Method Indwelling Catheter Indwelling Catheter ABP, PAP, CO, CI - Last Documented Arterial Blood Pressure 147/70 - Exam GENERAL EXAM: Intubated, sedated and paralyzed, generally swollen 75-year-old white male, on assist-control mode of ventilation, with FiO2 of 50% and PEEP of 14 comfortable in no apparent distress. HEAD: Normocephalic/atraumatic. EYES: Normal reaction of pupils, equal size. Conjunctiva pink, sclera white. NOSE: Clear with pink turbinates. THROAT: No erythema or exudates. NECK: No masses, no JVD, no thyroid enlargement, no adenopathy. CHEST: No chest wall deformity. Symmetrical expansion. LUNGS: Equal air entry with diminished breath sounds bilaterally, with diffuse crackles CVS: Regular rate and rhythm, normal S1 and S2, no gallops, no murmurs, no rubs ABDOMEN: Soft, nontender. No hepatosplenomegaly, normal bowel sounds, no guarding or rigidity. EXTREMITIES: No clubbing, 1+ generalized edema no cyanosis, 2+ pulses and upper and lower extremities. Patient has right groin temporary hemodialysis catheter in place MUSCULOSKELETAL: Muscle strength and tone normal. SPINE: No scoliosis or deformity SKIN: No rashes CENTRAL NERVOUS SYSTEM: Sedated, intubated and paralyzed No focal deficits, tone is normal in all 4 extremities. - Labs CBC & Chem 7: 06/24/21 03:35 06/24/21 03:35 Labs: Abnormal Lab Results - Last 24 Hours (Table) 06/23/21 06/24/21 06/24/21 Range/Units 18:41 03:35 03:35 WBC 11.9 H (3.8-10.6) k/uL RBC 2.76 L (4.30-5.90) m/uL Hgb 8.0 L (13.0-17.5) gm/dL Hct 25.2 L (39.0-53.0) % Plt Count 43 L (150-450) k/uL Neutrophils # 11.2 H (1.3-7.7) k/uL Lymphocytes # 0.3 L (1.0-4.8) k/uL ABG pH (7.35-7.45) ABG pO2 (83-108) mmHg ABG HCO3 (21-25) mmol/L ABG O2 Saturation (94-97) % Sodium 135 L (137-145) mmol/L Carbon Dioxide 18 L (22-30) mmol/L BUN 87 H (9-20) mg/dL Creatinine 5.05 H (0.66-1.25) mg/dL POC Glucose (mg/dL) 116 H (75-99) mg/dL Calcium 8.2 L (8.4-10.2) mg/dL 06/24/21 Range/Units 05:32 WBC (3.8-10.6) k/uL RBC (4.30-5.90) m/uL Hgb (13.0-17.5) gm/dL Hct (39.0-53.0) % Plt Count (150-450) k/uL Neutrophils # (1.3-7.7) k/uL Lymphocytes # (1.0-4.8) k/uL ABG pH 7.28 L (7.35-7.45) ABG pO2 68 L (83-108) mmHg ABG HCO3 19 L (21-25) mmol/L ABG O2 Saturation 92.2 L (94-97) % Sodium (137-145) mmol/L Carbon Dioxide (22-30) mmol/L BUN (9-20) mg/dL Creatinine (0.66-1.25) mg/dL POC Glucose (mg/dL) (75-99) mg/dL Calcium (8.4-10.2) mg/dL Microbiology - Last 24 Hours (Table) 06/22/21 01:39 Gram Stain - Final Sputum Sputum Culture - Final Aspergillus not fumigatus Assessment and Plan Plan: Assessment: #1. Acute hypoxic respiratory failure secondary to COVID-19 pneumonia, patient was not vaccinated. He failed BiPAP therapy, was intubated on 06/15/2021, he remains sedated and paralyzed on assist control mode of ventilation with a PEEP of 14 and FiO2 of 55% today. Remains on Nimbex, Diprivan and sent no. Has been getting hemodialysis since 06/20/2021. Patient will likely require prolonged ventilator support, and consultation has been placed to Gen. surgery today for tracheostomy and PEG tube placement #2. Subcutaneous emphysema, and pneumomediastinum. Cutaneous emphysema has w orsened on today's chest x-ray #3. Acute kidney injury, patient was started on hemodialysis on 06/20/2021 #4. History of chronic atrial fibrillation, with recent RVR, currently on amiodarone and Eliquis for anticoagulation #5. Pseudomonas aeruginosa in his sputum culture, possibly related to i mmunosuppression, currently on Zosyn, and Diflucan for Essence albicans in the sputum culture. Most recent sputum culture from 06/22/2021 shows Aspergillus not fumigatus #6. Extensive oropharyngeal candidiasis, patient is on Diflucan #7. Leukocytosis, improving #8. Elevated d-dimer, and inflammatory markers related to acute COVID-19 pneumonia, patient is on Eliquis, inflammatory markers are slightly improved but still remain elevated Plan: Continue current vent settings Continue hemodialysis, the goal is to remove 3 L of fluid Continue Decadron, continue antibiotics Surgical consultation has been placed for tracheostomy and PEG tube placement today to Dr. Padilla Hold tube feedings for high residuals, continue with bowel protocol including suppositories, Reglan, and stool softeners Overall prognosis is guarded Follow-up chest x-ray labs, inflammatory markers tomorrow May attempt paralytic holiday tomorrow depending on the scheduling of the trach and PEG placement by general surgery I performed a history & physical examination of the patient and discussed their management with my nurse practitioner, Telma Dimas. I reviewed the nurse practitioner's note and agree with the documented findings and plan of care. Lung sounds are positive for diminished breath sounds throughout the lung de la torre. The findings and the impression was discussed with the patient. I attest to the documentation by the nurse practitioner. Time with Patient: Greater than 30
[2021-06-24] MEDS: fentaNYL (PF). 1,000 MCG in SODIUM CHLORIDE 0.9% 80 ML IV SCH (10:45)
[2021-06-24] MEDS: CISATRACURIUM 200 MG in SODIUM CHLORIDE 0.9% 180 ML IV SCH (10:47)
[2021-06-24 12:10] LABS: Glucose,Whole Blood 97 mg/dL (75-99)
[2021-06-24] MEDS ORDERED: LIDOCAINE 1% INJ 10MG/ML (20 ML MDV) SQ ONE (13:56)
--- NOTE | 2021-06-24 15:05 | P.GSCN ---
History of Present Illness Consult date: 06/24/21 History of present illness: CHIEF COMPLAINT: COVID-19 pneumonia Reason for consult tracheostomy and PEG tube placement HISTORY OF PRESENT ILLNESS: This is a 75-year-old male who was admitted to the hospital with COVID-19 pneumonia. He required to be intubated on 06/15/2021 and currently remains in the ICU intubated and sedated. He also is required to be started on hemodialysis for acute renal failure. Patient has had prolonged mechanical ventilation and surgical consult was placed for tracheostomy and PEG tube placement. Patient is also on Eliquis for his atrial fibrillation. His vent settings include a PEEP of 15. Patient did have high residual through his tube feedings. 2 feedings currently have been placed on hold. No vomiting reported. PAST MEDICAL HISTORY: Chronic Atrial fibrillation PAST SURGICAL HISTORY: Cholecystectomy, hernia repair, joint replacement, orthopedic surgery. MEDICATIONS: See list. ALLERGIES: See list. SOCIAL HISTORY: No illicit drug use. Former smoker REVIEW OF SYSTEMS: Unable to obtain. Patient intubated and sedated PHYSICAL EXAM: VITAL SIGNS: Reviewed GENERAL: Well-developed in no acute distress. HEENT: No sclera icterus. Extraocular movements grossly intact. Moist buccal mucosa. Head is atraumatic, normocephalic. No nasal drainage. ABDOMEN: Soft. Nondistended. Nontender NEUROLOGIC: Intubated and sedated LABORATORY DATA: WBC is 11.9 hemoglobin is 8 platelets 43 Sodium is 135 potassium 5.1 BUN 87 creatinine 5.05 Albumin 2.1 IMAGING: Chest x-ray interval development of pneumomediastinum is suspected. Correlate for pneumonia, ARDS. There is progression in subcutaneous emphysema ASSESSMENT: 1. Acute hypoxic respiratory failure secondary to COVID-19 pneumonia. Patient requiring prolonged mechanical ventilation 2. Severe protein calorie malnutrition PLAN: -Patient scheduled for tracheostomy and PEG tube placement on 06/26/[address] Padilla -Hold Eliquis for tracheostomy and PEG tube placement -Tube feedings will need to be held after midnight the day prior to surgery -Continue ICU management and supportive care Thank you for this consultation Physician [employer] note has been reviewed by physician. Signing provider agrees with the documented findings, assessment, and plan of care. Past Medical History Past Medical History: Atrial Fibrillation Additional Past Medical History / Comment(s): BPH History of Any Multi-Drug Resistant Organisms: None Reported Past Surgical History: Cholecystectomy, Hernia Repair, Joint Replacement, Orthopedic Surgery Additional Past Surgical History / Comment(s): KNEE REPLACEMENT KAYODE Past Psychological History: No Psychological Hx Reported Smoking Status: Former smoker Past Alcohol Use History: None Reported Past Drug Use History: None Reported Medications and Allergies Home Medications Medication Instructions Recorded Confirmed Type Albuterol Sulfate [Albuterol 2 puff INHALATION RT-Q4H PRN 06/02/21 06/02/21 History Sulfate Hfa] Ascorbic Acid [Vitamin C] 500 mg PO DAILY 06/02/21 06/02/21 History Aspirin EC [Ecotrin Low Dose] 81 mg PO DAILY 06/02/21 06/02/21 History Calcium/Magnesium/Zinc 1 tab PO DAILY 06/02/21 06/02/21 History [Ptzsycp-Abzklerve-Gbkl Tablet] Cholecalciferol [Vitamin D3 (25 25 mcg PO DAILY 06/02/21 06/02/21 History Mcg = 1000 Iu)] Cyanocobalamin (Vitamin B-12) 1,000 mcg PO DAILY 06/02/21 06/02/21 History [Vitamin B-12] Dexamethasone 6 mg PO DAILY 06/02/21 06/02/21 History Doxycycline Hyclate 100 mg PO BID 06/02/21 06/02/21 History Loratadine 10 mg PO DAILY 06/02/21 06/02/21 History Metoprolol Succinate (ER) [Toprol 25 mg PO DAILY 06/02/21 06/02/21 History Xl] Ondansetron Odt [Zofran Odt] 8 mg PO Q8HR PRN 06/02/21 06/02/21 History Super Beta Prostate 1 tab PO BID 06/02/21 06/02/21 History Vit C/E/Zn/Coppr/Lutein/Zeaxan 1 cap PO BID 06/02/21 06/02/21 History [Preservision Areds 2 Softgel] Zinc 100 mg PO DAILY 06/02/21 06/02/21 History Allergies Allergy/AdvReac Type Severity Reaction Status Date / Time No Known Allergies Allergy Verified 06/02/21 15:10 Surgical - Exam Vital Signs Temp Pulse Resp BP Pulse Ox 99.1 F 83 16 120/73 96 06/02/21 13:52 06/02/21 13:52 06/02/21 13:52 06/02/21 13:52 06/02/21 13:52 Results - Labs 06/24/21 03:35 06/24/21 03:35 Abnormal Lab Results - Last 24 Hours (Table) 06/23/21 06/24/21 06/24/21 Range/Units 18:41 03:35 03:35 WBC 11.9 H (3.8-10.6) k/uL RBC 2.76 L (4.30-5.90) m/uL Hgb 8.0 L (13.0-17.5) gm/dL Hct 25.2 L (39.0-53.0) % Plt Count 43 L (150-450) k/uL Neutrophils # 11.2 H (1.3-7.7) k/uL Lymphocytes # 0.3 L (1.0-4.8) k/uL ABG pH (7.35-7.45) ABG pO2 (83-108) mmHg ABG HCO3 (21-25) mmol/L ABG O2 Saturation (94-97) % Sodium 135 L (137-145) mmol/L Carbon Dioxide 18 L (22-30) mmol/L BUN 87 H (9-20) mg/dL Creatinine 5.05 H (0.66-1.25) mg/dL POC Glucose (mg/dL) 116 H (75-99) mg/dL Calcium 8.2 L (8.4-10.2) mg/dL 06/24/21 Range/Units 05:32 WBC (3.8-10.6) k/uL RBC (4.30-5.90) m/uL Hgb (13.0-17.5) gm/dL Hct (39.0-53.0) % Plt Count (150-450) k/uL Neutrophils # (1.3-7.7) k/uL Lymphocytes # (1.0-4.8) k/uL ABG pH 7.28 L (7.35-7.45) ABG pO2 68 L (83-108) mmHg ABG HCO3 19 L (21-25) mmol/L ABG O2 Saturation 92.2 L (94-97) % Sodium (137-145) mmol/L Carbon Dioxide (22-30) mmol/L BUN (9-20) mg/dL Creatinine (0.66-1.25) mg/dL POC Glucose (mg/dL) (75-99) mg/dL Calcium (8.4-10.2) mg/dL Microbiology - Last 24 Hours (Table) 06/22/21 01:39 Gram Stain - Final Sputum Sputum Culture - Final Aspergillus not fumigatus Diabetes panel 06/24/21 Range/Units 03:35 Sodium 135 L (137-145) mmol/L Potassium 5.1 (3.5-5.1) mmol/L Chloride 105 (98-107) mmol/L Carbon Dioxide 18 L (22-30) mmol/L BUN 87 H (9-20) mg/dL Creatinine 5.05 H (0.66-1.25) mg/dL Glucose 96 (74-99) mg/dL Calcium 8.2 L (8.4-10.2) mg/dL Calcium panel 06/24/21 Range/Units 03:35 Calcium 8.2 L (8.4-10.2) mg/dL Pituitary panel 06/24/21 Range/Units 03:35 Sodium 135 L (137-145) mmol/L Potassium 5.1 (3.5-5.1) mmol/L Chloride 105 (98-107) mmol/L Carbon Dioxide 18 L (22-30) mmol/L BUN 87 H (9-20) mg/dL Creatinine 5.05 H (0.66-1.25) mg/dL Glucose 96 (74-99) mg/dL Calcium 8.2 L (8.4-10.2) mg/dL Adrenal panel 06/24/21 Range/Units 03:35 Sodium 135 L (137-145) mmol/L Potassium 5.1 (3.5-5.1) mmol/L Chloride 105 (98-107) mmol/L Carbon Dioxide 18 L (22-30) mmol/L BUN 87 H (9-20) mg/dL Creatinine 5.05 H (0.66-1.25) mg/dL Glucose 96 (74-99) mg/dL Calcium 8.2 L (8.4-10.2) mg/dL
[2021-06-24] MEDS: NOREPINEPHRINE 8 MG in SODIUM CHLORIDE 0.9% 250 ML IV SCH (15:08)
--- NOTE | 2021-06-24 15:09 | P.PN ---
Subjective Progress Note Date: 06/24/21 This is a 75-year-old male who was recently admitted with COVID-19 infection with acute hypoxic respiratory failure and is being closely monitored. Pulmonary following closely and patient is maintained on dexamethasone along with Lovenox and vitamin and zinc supplements. Patient currently maintained on 15 L high flow via nasal cannula with supplemental use of 15 L nonrebreather. Patient states his breathing is slightly improved and not requiring a nonrebreather as often. Instructed the patient to use incentive spirometer and increase activity as tolerated. Patient continues to be extremely weak and will have PT/OT evaluate the patient once more stable. 06/06/2021 Patient is seen in follow-up this morning states his shortness of breath has slightly worsened and his recovery time and working to breathe has become more difficult. Patient is continued on 15 L high flow along with nonrebreather intermittently and having to use it more frequently today he states. Incentive spirometer at the bedside and instructed the patient to continue to use at least 10 times every hour while awake and encouraged increased activity as tolerated. Patient states he walked to the bathroom with assistance and became extremely dyspneic. Patient is afebrile. D-dimer is 4.72 with a WBC of 16 and hemoglobin is stable at 15.4. Sodium is 138 with a potassium of 4.5 and current creatinine is 0.63. LDH is elevated at 2492 and CRP is 6.5. Chest x-ray today shows findings consistent with COVID-19 pneumonia with bilateral interstitial and airspace disease present. 06/07/2021 Patient is seen and evaluated in follow up this morning and is having increasing shortness of breath and on 15L high flow via NC and 15 L non-rebreather. Patient has been back in bed and attempting position changes frequently along with prone position. Patient continues on lovenox, baracitinib, vitamin and zinc supplement s,and steroids. Pulmonary following closely. 06/10/2021 Patient is seen in follow up this morning and is now maintained on airvo at 60% and continues to be extremely dyspneic with minimal exertion. Patient also continues with 15L Non rebreather as needed. Patient is maintained on lovenox along with baricitinib and IV steroids with pulmonary following. Patient states he has no reserve and taking longer periods of time to recover with attempting to position change or use the urinal. 06/11/2021 Patient is seen in follow-up and evaluated this morning and is continued on Airvo and maintaining oxygen saturations in the low 90s. Pulmonary following closely. Patient is afebrile. Patient is continued on vitamin and zinc supplements along with Baricitinib and subcutaneous Lovenox along with IV steroids and will continue. Patient's d-dimer today is elevated at 18.25 and will increase Lovenox to 50 subcu twice daily. White blood count today is 18.6 and hemoglobin is stable at 13.7, sodium is 139 with a potassium of 4.3 current creatinine is 0.7. Inflammatory markers are elevated with some trending down and CRP is 1.5, LDH is 1968 and alk phos is 168. Patient is afebrile. Patient continues to be extremely anxious and will continue Xanax as needed. Encouraged increase activity as tolerated and continued position changes with incentive spirometer use. 06/12/2021 Patient is seen in follow-up this morning with no acute issues noted overnight. Patient continues on Airvo with a flow rate of 55 and FiO2 of 80% maintaining oxygen saturations above 90%. Pulmonary following closely and we'll continue to wean as tolerated. Patient continues on Lovenox twice daily along with vitamin and zinc supplements and continued on IV steroids along with albuterol and Baricitinib. White blood count is 23.7 with a hemoglobin of 14.1, sodium is 139 with a potassium of 4.4 and current creatinine is 0.62. Will repeat chest x-ray along with inflammatory markers in the morning. 06/13/2021 Patient is seen and evaluated in follow-up as morning and continues to be on Airvo. Patient appears to be more raspy with some sputum and congested today with a hoarse voice. Infectious disease and pulmonary following closely. Sputum culture from 06/02 just today preliminary showing gram-negative bacilli along with Essence albicans and patient is being started on IV cefepime with repeat sputum culture ordered along with oral Diflucan. White blood count is 23.5 with hemoglobin of 13.8, sodium is 137 and potassium is 5.5 and current creatinine is 0.55. LFTs are mildly elevated. Repeat d-dimer along with CRP and LDH have been ordered. Will repeat a.m. labs. Chest x-ray today shows con tinued peripheral and lower lung interstitial infiltrates of Covid pneumonia without significant change. 06/14/2021 Patient is seen and evaluated in follow-up this morning continues to be dyspneic and requesting to go to the bed as he has been sitting up in the chair all day. Patient has been started on Diflucan along with IV cefepime and sputum culture from 06/02/2021 resulted showing Pseudomonas aeruginosa along with Essence albicans. Infectious disease is following closely. Patient is completing Baricitinib and will be transitioned to oral prednisone taper with pulmonary following closely. Patient has been started on eliquis. D-dimer today has trended down to 11.02, LDH is 2178, CRP is 3.2, liver functions trending down. White blood count slightly trending down at 20.2 and hemoglobin is stable at 13.7, sodium is 136 with a potassium of 4.3 and current creatinine is 0.57. Continues to have a mildly raspy voice with some throat dryness and will add Cepacol. 06/15/2021 Patient evaluated in bed and is resting on the BiPAP in the intensive care unit, he had desaturated this morning will be moved to the bathroom and initially was on a 15L HF, however is now requiring BiPAP. Patient was started on a Precedex drip. Repeat chest x-ray today which revealed persistent multifocal and confluent bilateral reticulonodular opacities is consistent with known coronary infection more prominent in the lower lungs. Patient finished a course of therapy with Baricitinib and transitioned to oral prednisone. Labs reviewed today include a white blood cell count 21.2, hemoglobin of 12.5. Blood gases show a pO2 of 32 and O2 saturation of 50.3. Chloride is 110, CO2 20, sodium 137, potassium 4. LDH is worse today at 2277, alk phos 158, CRP is trending upwards of 4.6. Patient has remained afebrile, heart rate is now 83, respirations 32, blood pressure 124/68. Oxygen saturation is maintaining in the mid to high 80s on 100% BiPAP. Patient is nothing by mouth and oral medications are unable to be given. Patient is on IV cefepime for a sputum culture positive for Pseudomonas. He is IV Diflucan for oral candidiasis that was improving as of yesterday. 06/16/2021 Patient is evaluated in the intensive care unit, he is status post intubation and has NG tube in place. Labs reviewed today included white blood cell, 44.2, d-dimer greater than 34. ABGs from the A-line included a pH of 7.15, pCO2 of 71, total CO2 is 27 and oxygen saturation of 98. Bicarb is 25 and his pO2 is 107. Additional labs include a serum potassium 5.1, chloride of 109, BUN of 27, creatinine 1.06. Vital signs include a heart rate of 123 tachycardia, respiratory rate of 36, blood pressure 100/50, he is 98% oxygen saturation. Patient is on vasopressors for his blood pressure. Repeat blood cultures are negative. Patient is receiving propofol for sedation. His chest x-ray was reviewed which is showing bilateral pulmonary infiltrates demonstrating COVID- 19 pneumonia with ARDS. Patient is still getting IV cefepime for a sputum culture Pseudomonas although his pro calcitonin level is 0.03 which is not usually indicative of a bacterial infection. Additional inflammatory markers remain elevated. Patient did receive 2 L saline bolus. Repeat labs in the morning, prognosis is guarded for this patient. 06/17/2021 Patient is seen in follow-up continues to be monitored closely in the ICU with multiple medical consultations following. Prognosis is extremely guarded. Patient's respiratory status significantly worsened requiring mechanical ventilation and intubation and currently patient is sedated. White blood count is worsened at 26.1 and hemoglobin is 12.2, d-dimer is 27.06, ABG is 7.16 pH with a pCO2 of 57 and a pO2 of 68 and bicarb is 20, sodium is 140 with a potassium of 5.0 and current creatinine has worsened at 2.29 pro calcitonin is 24.40. Infectious disease along with pulmonary heel compressor following closely. Patient continues on cefepime along with eliquis, vitamin and zinc supplements and patient has finished Baricitinib. Patient was on oral Decadron and is being transitioned back to IV dexamethasone along with Diflucan. Patient was given a dose of IV Lasix and nephrology has been consulted. Cardiology consulted as well and patient is currently on amiodarone drip along with Cleviprex and currently sedated on propofol. Patient also has norepinephrine drip as well. Patient being started on sodium bicarb drip. Patient also has low-grade fevers. 06/18/2021 Patient is seen in follow up in the ICU and maintained on mechanical vent intubated and sedated. Patient continues on NImbex, sodium bicarb, amiodarone, and being started on fentanyl as IV lasix drip with multiple medical consultations following. Kidney functions continue to deteriorate with nephrology following closely. Discussion being had about possible hemodialysis if kidney functions continue to worsen. Creatinine currently 3.69 today. 06/19/2021 Patient remains on mechanical vent with minimal urine output note and extensive volume overload with worsening kidney functions and would like to proceed with hemodialysis catheter placement with nephrology following closely. Multiple consultations following and Dr. Mann consulted for hemodialysis catheter placement and will hold eliquis. Amiodarone being transitioned to oral with cardiology following closely. Continue close monitoring in the ICU. Overall Prognosis remains extremely poor and guarded. 06/20/2021 Patient is seen and evaluated in follow-up continue to be closely monitored with multiple medical consultations following in the ICU. Patient remains intubated on mechanical ventilation and sedated. Kidney functions continue to worsen and patient is an extensive volume overload and has received dialysis catheter today and will initiate hemodialysis. Patient was maintained on IV Lasix drip which is being transitioned to IV push Lasix twice daily with nephrology following closely. Patient also continues on IV cefepime along with dexamethasone, vitamin and zinc supplements and continues on eliquis as well. White blood count 11.9 and hemoglobin is 9.6, platelets are 61 and d-dimer is 8.40. Sodium is 135 with a potassium of 5.0 and current BUN is 99 with a creatinine of 5.23. LDH is 1015 and pro calcitonin is 13.10. Prognosis remains extremely guarded. 06/21/2021 Patient is evaluated in follow up this morning and continues to be monitored closely in the ICU. On mechanical vent with an FI02 of 50%. Currently receiving hemodialysis and will likely require daily treatments if tolerated for extensive overload. Patient continues on IV lasix twice daily along with Nimbex, propofol, and fentanyl. Chest xray done today. Patient continues on IV cefepime with most recent repeat sputum culture revealing no growth. Infectious disease following closely. 06/22/2021 Patient remains intubated in the ICU, on ventilatory before meals settings, tidal volume 450, 50% FiO2, PEEP of 16, saturating 80%. ABG showing pO2 66, pCO2 42, pH 7.32, he was dialyzed for 2-1/2 L removed., He is making urine He remains sedated with propofol and he is paralyzed with Nimbex. His sputum is growing pseudomonas receiving antimicrobial therapy of cefepime, ID is following. No fever this morning, blood pressure 09/26/1938/50. Chest x-ray showing extensive bilateral airspace disease, correlate for pneumonia or ARDS. In atrial fibrillation with controlled ventricular rate 06/23/2021 Patient remains intubated on ventilatory support in the ICU, currently on assist control, 55% FiO2, PEEP of 14, TG 450. ABG this morning showing pH 7.31, pCO2 43, pO2 54, bicarb 22. O2 saturations marginal 90-91%, blood pressure stable. He remains in atrial fibrillation, with controlled ventricular rate, antic oagulated with Eliquis. Labs today show sodium 135, creatinine 4.18, WBC 12.7, hemoglobin 8.3 platelets 40. He is on IV Lasix, low urine output 270 ml yesterday Continue systemic steroids of Decadron 6 daily, eyes receiving antimicrobial therapy with cefepime, and fluconazole. sedated with fentanyl. 06/24/2021 Patient is seen and evaluated continues to be closely monitored in the ICU. Patient is currently receiving hemodialysis with an attempt of 2 L removal as the goal is 3 although patient's blood pressure is not tolerating. Nephrology and pulmonary heel compressor following closely. General surgery has been consulted for possible PEG and trach tube placement. Patient continues on Cleviprex along with fentanyl and propofol, IV dexamethasone, vitamin and zinc supplements, scheduled Reglan and IV cefepime. No reported bowel movements and patient not tolerating tube feeds with a large amount of residual noted in the NG. Chest x- ray today shows interval development of pneumomediastinum is suspected with arts and progression of subcutaneous emphysema. Labs: Sodium is 135, potassium is 5.1, BUN 87, creatinine is 5.05, LDH 842, CRP 3.8, D-dimer is 8.41, WBC 11.9, hemoglobin is 8.0, platelets 43 Review of systems: Unable to complete a full review of symptoms as patient is sedated and on a ventilator. Active Medications Acetaminophen (Acetaminophen Tab 325 Mg Tab) 650 mg PO Q6HR PRN PRN Reason: Fever and/ or Mild Pain Last Admin: 06/14/21 22:22 Dose: 650 mg Documented by: Albuterol Sulfate (Albuterol Hfa Inhaler) 2 puff INHALATION RT-QID [facility] Last Admin: 06/24/21 12:07 Dose: 2 puff Documented by: Albuterol Sulfate (Albuterol Hfa Inhaler) 2 puff INHALATION RT-QID PRN PRN Reason: Shortness Of Breath Or Wheezing Last Admin: 06/15/21 03:30 Dose: 2 puff Documented by: Amiodarone HCl (Amiodarone 200 Mg Tab) 200 mg PO BID [facility] Last Admin: 06/24/21 08:51 Dose: 200 mg Documented by: Artificial Tears (Artificial Tears-Hypromellose Drops 15 Ml Btl) 2 drops BOTH EYES Q4HR [facility] Last Admin: 06/24/21 13:27 Dose: 2 drops Documented by: Ascorbic Acid (Ascorbic Acid 500 Mg Tab) 500 mg PO DAILY [facility] Last Admin: 06/24/21 08:51 Dose: 500 mg Documented by: Benzocaine/Menthol (Benzocaine/Menthol Lozeng 1 Each Lozenge) 1 each MUCOUS MEM Q4HR PRN PRN Reason: Sore Throat Bisacodyl (Bisacodyl 10 Mg Supp) 10 mg RECTAL DAILY [facility] Last Admin: 06/24/21 08:51 Dose: 10 mg Documented by: Calcium Acetate (Calcium Acetate 667 Mg Tab) 667 mg PO TID-W/MEALS [facility] Last Admin: 06/24/21 13:27 Dose: 667 mg Documented by: Chlorhexidine Gluconate (Chlorhexidine Gluconate 15 Ml Cup) 15 ml MUCOUS MEM BID [facility] Last Admin: 06/24/21 08:50 Dose: 15 ml Documented by: Cholecalciferol (Cholecalciferol 25 Mcg (1000 Iu) Tablet) 25 mcg PO DAILY [facility] Last Admin: 06/24/21 08:51 Dose: 25 mcg Documented by: Cyanocobalamin (Cyanocobalamin 500 Mcg Tab) 1,000 mcg PO DAILY [facility] Last Admin: 06/24/21 08:51 Dose: 1,000 mcg Documented by: Dexamethasone Sodium Phosphate (Dexamethasone Sod Phosphate 10 Mg/Ml 1 Ml Vial) 6 mg IV DAILY [facility] Last Admin: 06/24/21 08:50 Dose: 6 mg Documented by: Fluconazole (Fluconazole 100 Mg Tab) 100 mg PO DAILY [facility] Last Admin: 06/24/21 08:51 Dose: 100 mg Documented by: Propofol 1,000 mg/ IV Solution 100 mls @ 0 mls/hr IV .Q0M [facility]; Protocol Last Admin: 06/24/21 13:28 Dose: 50 mcg/kg/min, 35.4 mls/hr Documented by: Norepinephrine Bitartrate 8 mg (/ Sodium Chloride) 258 mls @ 9.482 mls/hr IV .Q24H [facility]; Protocol Last Admin: 06/23/21 15:02 Dose: Not Given Documented by: Cisatracurium Besylate 200 mg/ (Sodium Chloride) 200 mls @ 5.88 mls/hr IV .Q24H [facility]; Protocol Last Admin: 06/24/21 10:47 Dose: 3 mcg/kg/min, 17.64 mls/hr Documented by: Fentanyl Citrate 1,000 mcg/ (Sodium Chloride) 100 mls @ 2.765 mls/hr IV .Q24H [facility]; Protocol Last Admin: 06/24/21 10:45 Dose: 0.6 mcg/kg/hr, 6.636 mls/hr Documented by: Cefepime HCl 1 gm/ Sodium (Chloride) 50 mls @ 12.5 mls/hr IVPB HS [facility] Last Admin: 06/23/21 20:05 Dose: 12.5 mls/hr Documented by: Metoclopramide HCl (Metoclopramide 5 Mg/Ml 2 Ml Vial) 5 mg IVP Q8H [facility] Last Admin: 06/24/21 13:27 Dose: 5 mg Documented by: Metoprolol Tartrate (Metoprolol Tartrate 25 Mg Tab) 25 mg PO DAILY [facility] Last Admin: 06/24/21 08:51 Dose: 25 mg Documented by: Pantoprazole Sodium (Pantoprazole 40 Mg/10 Ml Vial) 40 mg IVP BID [facility] Last Admin: 06/24/21 08:51 Dose: 40 mg Documented by: Senna/Docusate Sodium (Sennosides-Docusate Sodium 1 Each Tab) 1 each PO DAILY [facility] Last Admin: 06/24/21 08:51 Dose: 1 each Documented by: Zinc Sulfate (Zinc Sulfate 220 Mg Cap) 220 mg PO DAILY [facility] Last Admin: 06/24/21 08:51 Dose: 220 mg Documented by: Physical exam: Gen: This is a 75-year-old male sedated and intubated on propofol and mechanical ventilation. Temp is 97.4, pulse is 92, resp are 36, blood pressure is 95/58, an d pulse ox is 97% on mechanical vent with an FI02 of 55% HEENT: Head is atraumatic, normocephalic. Pupils equal, round. Sclerae is anicteric. NECK: Supple. No JVD. No lymphadenopathy. No thyromegaly. LUNGS: Diminished breath sounds bilaterally with scattered coarse rhonchi and crackles noted. Extensive subcutaneous emphysema persists HEART: Irregular S1, S2 are muffled ABDOMEN: Firm. Edematous. obese. Bowel sounds are present. No masses. No guarding or rigidity noted. EXTREMITIES: Extensive pitting edema noted of upper and lower bilateral extremities and much of the body. NEUROLOGICAL: Patient is intubated and sedated Assessment: Acute COVID-19 infection with acute component of interstitial pneumonia, bilateral, possibly ARDS with acute hypoxic respiratory failure and possible sepsis secondary to COVID-19 Status post mechanical ventilation and intubation after failed BIPAP on 06/15/2021 secondary to above Subcutaneous emphysema Possible developing new pneumomediastinum as noted on x-ray acute renal failure likely ATN with worsening kidney functions and minimal urine output requiring hemodialysis volume overload secondary to ARF metabolic acidosis afib with RVR currently rate controlled on oral amiodarone and metoprolol Lactic acidosis secondary to above Initial sputum culture showing Essence albicans and pseudomonas aeruginosa and maintained on IV cefepime repeat sputum culture showing aspergillus not fumigatus Oral candidiasis started on Diflucan, sputum cultures from 06/02/2021 Essence albicans Extensive interstitial bilateral COVID-19 pneumonia Elevated white blood count possibly secondary to above Possible subsegmental pulmonary embolism ruled out History of atrial fibrillation Anxiety Remote history of nicotine dependence GI prophylaxis: Protonix DVT prophylaxis: On eliquis Full code Plan: Recommend to continue with current medications and continue to closely monitor in the ICU. Patient remains on mechanical ventilation and has received h emodialysis catheter and currently receiving hemodialysis with nephrology following closely. Patient continues on IV cefepime with ID following closely as well. repeat sputum culture showing aspergillus not fumigatus. Chest x-ray today shows extensive subcutaneous emphysema with interval development of pneumomediastinum is suspected with continued ards. Patient remains on eliquis 5 mg twice a day although currently on hold as consult has been placed to Gen. surgery for possible tracheostomy and PEG tube placement. Tube feedings are also on hold and patient will continue with scheduled Reglan along with bowel regimen as patient has not had a bowel movement and appears to be constipated. Patient continues on vitamin and zinc supplements IV dexamethasone and will continue. Patient has completed Baricitinib. Patient with extensive volume overload and has been receiving daily hemodialysis with nephrology following closely. Plan is for possible Thursday/Thursday/Thursday hemodialysis to be continued. Prognosis is extremely guarded and will continue to monitor closely. Repeat labs and cxr in the am. Objective - Vital Signs Vital signs: Vital Signs Temp 97.5 F L 06/24/21 04:00 Pulse 115 H 06/24/21 07:00 Resp 36 H 06/24/21 07:00 BP 114/72 06/24/21 03:00 Pulse Ox 94 L 06/24/21 07:00 Intake & Output 06/23/21 06/24/21 06/24/21 18:59 06:59 18:59 Intake Total 1089.946 996.099 300 Output Total 90 70 Balance 999.946 926.099 300 Weight 121.2 kg Intake: IV 276 299 0.9 240 260 Pressure bag 36 39 Intake, IV Titration 543.946 227.099 300 Amount Cisatracurium 200 mg In 200 Sodium Chloride 0.9% 180 ml @ 1 MCG/KG/MIN 5.88 mls/hr IV .Q24H [facility] Rx#: [id number] fentaNYL (PF). 1,000 mcg 143.946 42.139 In Sodium Chloride 0.9% 80 ml @ 0.25 MCG/KG/HR 2. 765 mls/hr IV .Q24H [facility] Rx#:[id number] propofoL 1,000 mg In 400 184.96 100 Empty Bag 1 bag @ Titrate IV .Q0M [facility] Rx#: [id number] Tube Feeding 180 380 Other 90 90 Output: Urine 90 70 Other: Voiding Method Indwelling Catheter Indwelling Catheter ABP, PAP, CO, CI - Last Documented Arterial Blood Pressure 152/66 - Labs CBC & Chem 7: 06/24/21 03:35 06/24/21 03:35 Labs: Abnormal Lab Results - Last 24 Hours (Table) 06/23/21 06/24/21 06/24/21 Range/Units 18:41 03:35 03:35 WBC 11.9 H (3.8-10.6) k/uL RBC 2.76 L (4.30-5.90) m/uL Hgb 8.0 L (13.0-17.5) gm/dL Hct 25.2 L (39.0-53.0) % Plt Count 43 L (150-450) k/uL Neutrophils # 11.2 H (1.3-7.7) k/uL Lymphocytes # 0.3 L (1.0-4.8) k/uL ABG pH (7.35-7.45) ABG pO2 (83-108) mmHg ABG HCO3 (21-25) mmol/L ABG O2 Saturation (94-97) % Sodium 135 L (137-145) mmol/L Carbon Dioxide 18 L (22-30) mmol/L BUN 87 H (9-20) mg/dL Creatinine 5.05 H (0.66-1.25) mg/dL POC Glucose (mg/dL) 116 H (75-99) mg/dL Calcium 8.2 L (8.4-10.2) mg/dL 06/24/21 Range/Units 05:32 WBC (3.8-10.6) k/uL RBC (4.30-5.90) m/uL Hgb (13.0-17.5) gm/dL Hct (39.0-53.0) % Plt Count (150-450) k/uL Neutrophils # (1.3-7.7) k/uL Lymphocytes # (1.0-4.8) k/uL ABG pH 7.28 L (7.35-7.45) ABG pO2 68 L (83-108) mmHg ABG HCO3 19 L (21-25) mmol/L ABG O2 Saturation 92.2 L (94-97) % Sodium (137-145) mmol/L Carbon Dioxide (22-30) mmol/L BUN (9-20) mg/dL Creatinine (0.66-1.25) mg/dL POC Glucose (mg/dL) (75-99) mg/dL Calcium (8.4-10.2) mg/dL Microbiology - Last 24 Hours (Table) 06/22/21 01:39 Gram Stain - Final Sputum Sputum Culture - Final Aspergillus not fumigatus
[2021-06-24 18:07] LABS: Glucose,Whole Blood 103 mg/dL (75-99)
[2021-06-24] MEDS: CEFEPIME 1 GM in SODIUM CHLORIDE 0.9% 50 ML IVPB SCH (20:28)
[2021-06-25] MEDS: CISATRACURIUM 200 MG in SODIUM CHLORIDE 0.9% 180 ML IV SCH ×3 (00:31→18:36)
[2021-06-25] MEDS: ARTIFICIAL TEARS-HYPROMELLOSE DROPS 15 ML BTL BOTH EYES SCH ×6 (00:32→20:44)
[2021-06-25] MEDS: fentaNYL (PF). 1,000 MCG in SODIUM CHLORIDE 0.9% 80 ML IV SCH ×2 (02:22→14:38)
[2021-06-25] MEDS: METOCLOPRAMIDE 5 MG/ML 2 ML VIAL IVP SCH ×3 (04:04→20:44)
[2021-06-25 04:27] LABS: C Reactive Protein 7.7 mg/dL (<1.0); Potassium 4.7 mmol/L (3.5-5.1)
[2021-06-25 04:44] LABS: ABG Base Excess -6.2 mmol/L; ABG HCO3 20 mmol/L (21-25); ABG Oxygen Saturation 90.6 % (94-97); ABG PCO2 37 mmHg (35-45); ABG PH 7.33 (7.35-7.45); ABG PO2 62 mmHg (83-108); ABG TCO2 21 mmol/L (19-24); Allen Test Performed? Yes
--- NOTE | 2021-06-25 05:11 | XR ---
EXAMINATION TYPE: XR chest 1V portable DATE OF EXAM: 06/25/2021 CLINICAL HISTORY: Difficulty breathing progress study. COVID positive. TECHNIQUE: Single AP portable semiupright view of the chest is obtained. COMPARISON: Chest x-ray from one day earlier and older studies FINDINGS: Stable endotracheal and orogastric tubes. Stable left subclavian central venous catheter. Extensive overlying subcutaneous emphysema redemonstrated. Bilateral diffuse reticulonodular opacitie s redemonstrated. Cardiac silhouette size is stable and mildly enlarged. Osseous structures are intac t. Pneumomediastinum suspected as well seen on current study versus one day earlier. IMPRESSION: Extensive overlying subcutaneous emphysema with pneumomediastinum and bilateral confluent reticulonodular opacities related to covid-19 infection all redemonstrated. No significant change fr om one day earlier.
[2021-06-25 05:52] LABS: Glucose,Whole Blood 94 mg/dL (75-99)
[2021-06-25] MEDS: ALBUTEROL HFA INHALER INHALATION SCH ×4 (07:53→19:32)
--- NOTE | 2021-06-25 08:56 | P.PN ---
Subjective Patient is seen in follow-up for acute kidney injury, currently hemodialysis dependent. Oliguric. Intubated. On 50% FiO2. Blood pressure stable. No changes overnight. Scheduled for tracheostomy and PEG tube placement tomorrow. Vital signs are stable. General: Intubated. Regular rate and rhythm. Scrotal edema noted. No abdominal distention. Objective - Vital Signs Vital signs: Vital Signs Temp 97.9 F 06/25/21 00:00 Pulse 80 06/25/21 07:00 Resp 36 H 06/25/21 07:00 BP 116/58 06/24/21 18:00 Pulse Ox 95 06/25/21 07:00 Intake & Output 06/24/21 06/25/21 06/25/21 18:59 06:59 18:59 Intake Total 1025.69 811.88 23 Output Total 3140 20 0 Balance -2114.31 791.88 23 Weight 121.2 kg Intake: IV 276 253 23 0.9 240 220 20 Pressure bag 36 33 3 Intake, IV Titration 704.69 558.88 Amount Cisatracurium 200 mg In 341.12 58.88 Sodium Chloride 0.9% 180 ml @ 1 MCG/KG/MIN 5.88 mls/hr IV .Q24H [facility] Rx#: [id number] fentaNYL (PF). 1,000 mcg 31.41 100 In Sodium Chloride 0.9% 80 ml @ 0.25 MCG/KG/HR 2. 765 mls/hr IV .Q24H [facility] Rx#:[id number] propofoL 1,000 mg In 332.16 400 Empty Bag 1 bag @ Titrate IV .Q0M [facility] Rx#: [id number] Tube Feeding 45 Output: Gastric Drainage 800 Urine 40 20 0 Hemodialysis 2300 Other: Voiding Method Indwelling Catheter Indwelling Catheter ABP, PAP, CO, CI - Last Documented Arterial Blood Pressure 135/62 - Labs CBC & Chem 7: 06/24/21 03:35 06/25/21 03:50 Labs: Abnormal Lab Results - Last 24 Hours (Table) 06/24/21 06/25/21 06/25/21 Range/Units 18:06 03:50 03:50 D-Dimer 6.90 H (<0.60) mg/L FEU ABG pH (7.35-7.45) ABG pO2 (83-108) mmHg ABG HCO3 (21-25) mmol/L ABG O2 Saturation (94-97) % Sodium 133 L (137-145) mmol/L Carbon Dioxide 18 L (22-30) mmol/L BUN 72 H (9-20) mg/dL Creatinine 4.31 H (0.66-1.25) mg/dL POC Glucose (mg/dL) 103 H (75-99) mg/dL Calcium 8.0 L (8.4-10.2) mg/dL C-Reactive Protein 7.7 H (<1.0) mg/dL 06/25/21 Range/Units 04:40 D-Dimer (<0.60) mg/L FEU ABG pH 7.33 L (7.35-7.45) ABG pO2 62 L (83-108) mmHg ABG HCO3 20 L (21-25) mmol/L ABG O2 Saturation 90.6 L (94-97) % Sodium (137-145) mmol/L Carbon Dioxide (22-30) mmol/L BUN (9-20) mg/dL Creatinine (0.66-1.25) mg/dL POC Glucose (mg/dL) (75-99) mg/dL Calcium (8.4-10.2) mg/dL C-Reactive Protein (<1.0) mg/dL Microbiology - Last 24 Hours (Table) 06/22/21 01:39 Gram Stain - Final Sputum Sputum Culture - Final Aspergillus not fumigatus Assessment and Plan Plan: Assessment: 1. Acute kidney injury secondary to ATN secondary to sepsis/covid-19 infection. Baseline creatinine is near 1. Currently hemodialysis dependent. Right femoral catheter placed June 20. Oliguric. 2. Volume overload. Improved with ultrafiltration. 3. Acute hypoxic respiratory failure secondary to covid-19 pneumonia and volume overload. 4. A. fib with RVR maintained on oral amiodarone. 5. Metabolic acidosis secondary to acute kidney injury. 6. Hyperphosphatemia secondary to acute kidney injury maintained on PhosLo. Plan: Hemodialysis tomorrow with goal 2-3 L ultrafiltration. Stopped Lasix. Continue to monitor renal function and urine output. Wean FiO2. Add oral bicarbonate. Scheduled for tracheostomy and PEG tube placement tomorrow.
[2021-06-25] MEDS: METOPROLOL TARTRATE 25 MG TAB PO SCH (09:08)
[2021-06-25] MEDS: CYANOCOBALAMIN 500 MCG TAB PO SCH (09:08)
[2021-06-25] MEDS: SENNOSIDES-DOCUSATE SODIUM 1 EACH TAB PO SCH (09:08)
[2021-06-25] MEDS: CHLORHEXIDINE GLUCONATE 15 ML CUP MUCOUS MEM SCH ×2 (09:08→20:45)
[2021-06-25] MEDS: CHOLECALCIFEROL 25 MCG (1000 IU) TABLET PO SCH (09:08)
[2021-06-25] MEDS: FLUCONAZOLE 100 MG TAB PO SCH (09:08)
[2021-06-25] MEDS: ASCORBIC ACID 500 MG TAB PO SCH (09:08)
[2021-06-25] MEDS: CALCIUM ACETATE 667 MG TAB PO SCH ×3 (09:08→17:22)
[2021-06-25] MEDS: DEXAMETHASONE SOD PHOSPHATE 10 MG/ML 1 ML VIAL IV SCH (09:09)
[2021-06-25] MEDS: ZINC SULFATE 220 MG CAP PO SCH (09:09)
[2021-06-25] MEDS: AMIODARONE 200 MG TAB PO SCH ×2 (09:09→20:44)
[2021-06-25] MEDS: bisacodyL 10 MG SUPP RECTAL SCH (09:09)
[2021-06-25] MEDS: PANTOPRAZOLE 40 MG/10 ML VIAL IVP SCH ×2 (09:09→20:44)
[2021-06-25] MEDS: SODIUM BICARBONATE TAB 650 MG TAB PO SCH ×3 (09:18→20:44)
[2021-06-25 09:27] LABS: Basophils % (A) 0 %; Eosinophils # (A) 0.2 k/uL (0-0.7); Eosinophils % (A) 3 %; HCT 23.4 % (39.0-53.0); HGB 7.7 gm/dL (13.0-17.5); Lymphocytes # (A) 0.6 k/uL (1.0-4.8); Lymphocytes % (A) 6 %; MCH 29.9 pg (25.0-35.0); MCV 90.6 fL (80.0-100.0); Mean Platelet Volume 11.6; Monocytes # (A) 0.2 k/uL (0-1.0); Monocytes % (A) 2 %; Neutrophils # (A) 8.3 k/uL (1.3-7.7); Neutrophils % (A) 89 %; Platelet Count 50 k/uL (150-450); RBC 2.58 m/uL (4.30-5.90); RDW 14.5 % (11.5-15.5); WBC 9.3 k/uL (3.8-10.6)
--- NOTE | 2021-06-25 09:28 | P.PN ---
Subjective Progress Note Date: 06/25/21 Principal diagnosis: COVID-19 pneumonia The patient is seen today 06/19/2021 in follow-up in the intensive care unit. He remains intubated and on the mechanical ventilator. Current settings are assist-control rate of 36, tidal volume 430, FiO2 50% and a PEEP of 14. Morning blood gases revealed a pO2 of 60, pCO2 of 51, pH 7.27. He remains sedated on propofol at 50 mcg/kg/m, paralyzed with Nimbex at 1.5 mcg/kg/m. He is on fentanyl at 0.5 mcg/kg/hr. Amiodarone drip at 0.5 mg/m. Lasix drip at 10 mg per hour. D5W with 3 A of sodium bicarbonate 150 MLS per hour. Remains on cefepime and Diflucan. Anticoagulated with Eliquis. He remains on Decadron 6 mg IV daily. Vitamin supplements. Chest x-ray continues to show few scattered lung infiltrates. Stable compared to previous. Left central line in place. Endotracheal tube and gastric tubes in good position. Sputum culture from 06/02/2021 was positive for pseudomonas aeruginosa and Essence. Follow up cultures reveal no growth. Blood cultures reveal no growth. White count 16.0. Hemoglobin 10.4. Platelet count 71,000. Lymphocytes 0.4. D-dimer 10.4 seconds. Sodium 135. Potassium 4.4. Bicarb 22. BUN 75. Creatinine 4.63. LDH 1095. Blood glucose 151. The patient is seen today 06/20/2021, the intensive care unit. He remains intubated and on mechanical ventilator. Current mode of assist control with a respiratory rate of 36, tidal volume 450, FiO2 55% and a PEEP of 16. Morning blood gases on 60% FiO2 revealed a PaO2 of 77, pCO2 45, pH 7.29. Peak airway pressures 38, plateau pressure 36. He remains on fentanyl at 0.5 mcg/kg per hour, Lasix drip at 10 mg per hour, propofol at 50 mcg/g/m, Nimbex at 2mcg/kg/min. 0.9 normal saline at 10 MLS per hour. He remains on cefepime and Diflucan. He is currently in atrial fibrillation with controlled ventricular rate. Chest x-ray continues to show diffuse bilateral interstitial airspace disease. More focal left basilar consolidation also persists. Small left pleural effusion. No appreciable pneumothorax. Increasing subcutaneous emphys ingris at the base of the left neck and along the chest bilaterally. Follow-up sputum culture revealed no growth. Blood cultures reveal no growth. White count 11.9. Hemoglobin 9.6. Platelet count 61,000. Lymphocytes 0.4. D-dimer 8.4. Sodium 135. Potassium 5.0. Bicarb 21. Creatinine 5.23. BUN 99. Glucose 115. LDH 1015. He is continued on Decadron, and Eliquis, vitamin supplements. He is to receive a hemodialysis catheter today. Tube feedings currently on hold due to high residuals. Patient seen today 06/21/2021 in follow-up in the intensive care unit. He remains intubated and on mechanical ventilator. Current settings assist-control mode, respiratory rate 36, tidal volume 450, FiO2 50% and a PEEP of 16. Morning blood gases reveal a pO2 of 66, pCO2 42, pH 7.32. Chest x-ray continues to show bilateral patchy opacities along with subcutaneous emphysema which is a bit worse. 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 No clear evidence of pneumothorax. He did receive hemodialysis yesterday with 1 L removed. Plan is for hemodialysis again today. He remains in atrial fibrillation. Anticoagulated with Eliquis. Remains on antibiotics in the form of cefepime. He is also sedated on propofol 50 mcg/kg/m, paralyzed and Nimbex at 2 mcg/kg/m, fentanyl 5 mcg/mg/h. Initial sputum culture was positive for Pseudomonas and Essence. Follow-up sputum culture reveals no growth. Culture reveals no growth. White count 10.5. Hemoglobin 9.6. Platelet count 49,000. D-dimer 8.41. Sodium 134. Potassium 5.0. BUN 91. Creatinine 5.06. Glucose 94. LDH 842. C-reactive protein 3.8. Remains on Decadron. IV diuretics. Vitamin supplements. The patient is seen today 06/25/2021 in follow-up in the intensive care unit. He remains intubated, sedated, paralyzed. Currently in assist-control mode at a rate of 36, tidal volume 450, FiO2 50% and a PEEP of 14. Morning blood gases reveal pO2 of 62, pCO2 37, pH 7.33. He has 0.9 normal saline at 20 ML's per hour. Propofol 50 mcg/kg/m. Nimbex at 3 mcg/kg/m. Fentanyl 0.6 mcg/kg/hr. Vital AF at 15 ML's per hour. Chest x-ray continues to show extensive overlying subcutaneous emphysema with pneumomediastinum and bilateral confluent reticulonodular opacities secondary to COVID-19 infection. No significant change compared to yesterday. Sputum culture PVCs had revealed pseudomonas aeruginosa. More recently from 06/22/2021 Aspergillus not fumigatus. D-dimer 6.90. Sodium 133. Potassium 4.7. Bicarb 18. Creatinine 4.31. LDH 605. C- reactive protein 7.7. CBC is pending. He remains on cefepime and Diflucan. Continued on Decadron. Eliquis on hold. Remains on bronchodilators, vitamin supplements. Objective - Vital Signs Vital signs: Vital Signs Temp 97.9 F 06/25/21 00:00 Pulse 80 06/25/21 07:00 Resp 36 H 06/25/21 07:00 BP 116/58 06/24/21 18:00 Pulse Ox 95 06/25/21 07:00 Intake & Output 06/24/21 06/25/21 06/25/21 18:59 06:59 18:59 Intake Total 1025.69 811.88 189.780 Output Total 3140 20 0 Balance -2114.31 791.88 189.780 Weight 121.2 kg Intake: IV 276 253 23 0.9 240 220 20 Pressure bag 36 33 3 Intake, IV Titration 704.69 558.88 166.780 Amount Cisatracurium 200 mg In 341.12 58.88 101.332 Sodium Chloride 0.9% 180 ml @ 1 MCG/KG/MIN 5.88 mls/hr IV .Q24H [facility] Rx#: [id number] fentaNYL (PF). 1,000 mcg 31.41 100 In Sodium Chloride 0.9% 80 ml @ 0.25 MCG/KG/HR 2. 765 mls/hr IV .Q24H [facility] Rx#:[id number] propofoL 1,000 mg In 332.16 400 65.448 Empty Bag 1 bag @ Titrate IV .Q0M [facility] Rx#: [id number] Tube Feeding 45 Output: Gastric Drainage 800 Urine 40 20 0 Hemodialysis 2300 Other: Voiding Method Indwelling Catheter Indwelling Catheter ABP, PAP, CO, CI - Last Documented Arterial Blood Pressure 135/62 - Exam 75-year-old male patient who is currently intubated on a mechanical ventilator. Orogastric and orotracheal tube are both in place. The patient is sedated. The patient is paralyzed. HEENT revealed significant subcutaneous emphysema. Neck supple. Some left neck and chest subcutaneous emphysema noted. Cardiovascular examination reveals irregular rhythm rate. S1-S2 normal. No S3 or S4. No discernible murmur noted. . Heart sounds are distant. Lungs reveal coarse bilateral rhonchi. Crackles in the posterior bases. Breath sounds equal bilaterally. Abdomen soft bowel sounds are heard. No masses or tenderness. Extremities are intact. No cyanosis clubbing or edema. Skin is without rash or lesion Neurologic examination suboptimal as the patient is currently sedated and paralyzed. - Labs CBC & Chem 7: 06/24/21 03:35 06/25/21 03:50 Labs: Abnormal Lab Results - Last 24 Hours (Table) 06/24/21 06/25/21 06/25/21 Range/Units 18:06 03:50 03:50 D-Dimer 6.90 H (<0.60) mg/L FEU ABG pH (7.35-7.45) ABG pO2 (83-108) mmHg ABG HCO3 (21-25) mmol/L ABG O2 Saturation (94-97) % Sodium 133 L (137-145) mmol/L Carbon Dioxide 18 L (22-30) mmol/L BUN 72 H (9-20) mg/dL Creatinine 4.31 H (0.66-1.25) mg/dL POC Glucose (mg/dL) 103 H (75-99) mg/dL Calcium 8.0 L (8.4-10.2) mg/dL C-Reactive Protein 7.7 H (<1.0) mg/dL 06/25/21 Range/Units 04:40 D-Dimer (<0.60) mg/L FEU ABG pH 7.33 L (7.35-7.45) ABG pO2 62 L (83-108) mmHg ABG HCO3 20 L (21-25) mmol/L ABG O2 Saturation 90.6 L (94-97) % Sodium (137-145) mmol/L Carbon Dioxide (22-30) mmol/L BUN (9-20) mg/dL Creatinine (0.66-1.25) mg/dL POC Glucose (mg/dL) (75-99) mg/dL Calcium (8.4-10.2) mg/dL C-Reactive Protein (<1.0) mg/dL Microbiology - Last 24 Hours (Table) 06/22/21 01:39 Gram Stain - Final Sputum Sputum Culture - Final Aspergillus not fumigatus Assessment and Plan Assessment: 1 Acute hypoxemic respiratory failure secondary to coronavirus associated pneumonia. Unvaccinated. The patient had developed diffuse bilateral pulmonary infiltrates secondary to COVID-19 related pneumonia/ARDS. Subsequently the patient failed BiPAP therapy and he was intubated on 06/15/2021, currently sedated and paralyzed on a mechanical ventilator. Chest x-ray was noted to be unchanged. Significant subcutaneous emphysema noted. 2 Acute COVID-19 related pneumonia with diffuse but the pulmonary infiltrates and diffuse groundglass pulmonary changes 3 Elevated inflammatory markers secondary to above 4 Acute renal failure with creatinine up to 5.23, GFR 10. Renal replacement therapy started 06/20/2021 5 History of chronic atrial fibrillation with recent RVR. On oral amiodarone. Eliquis for anticoagulation on hold for PEG and trach. 6 Elevated pro calcitonin, currently on cefepime 7 Pseudomonas and yeast in the sputum, likely secondary to immunosuppression provided by Solu-Medrol and Baricitinib. Follow-up sputum culture from 06/22/2021 now revealing aspergillus not fumigatus. 8 Extensive oropharyngeal candidiasis, currently on Diflucan 9 Leukocytosis 10 Hypotension. Recovered and off pressors currently Plan: The patient was seen and evaluated by Dr. Paris Chest x-ray, ABGs and labs reviewed No significant changes Plan is for tracheostomy and PEG tube placement tomorrow Eliquis on hold Tube feeds to continue and titrate as tolerated Continued on Decadron, vitamin supplements Overall prognosis is quite guarded We'll continue to follow and make further recommendations based on his clinical status Critical care time 38 minutes I, the cosigning physician, performed a history & physical examination of the patient. Lungs sounds with posterior crackles in the bases, bilateral scattered rhonchi. Maintaining O2 saturations in the 90s on 50% FiO2 with a PEEP of 14 via the mechanical ventilator. I discussed the assessment and plan of care with my nurse practitioner, Mar Ruleas. I attest to the above note as dictated by her.
[2021-06-25 11:42] LABS: Glucose,Whole Blood 84 mg/dL (75-99)
[2021-06-25] MEDS ORDERED: NA PHOS,M-B/NA PHOS,DI-BA 133 ML ENEMA RECTAL ONE (14:35)
[2021-06-25] MEDS: NOREPINEPHRINE 8 MG in SODIUM CHLORIDE 0.9% 250 ML IV SCH (14:38)
--- NOTE | 2021-06-25 15:02 | P.PN ---
Subjective Progress Note Date: 06/25/21 CHIEF COMPLAINT: COVID-19 pneumonia HISTORY OF PRESENT ILLNESS: Patient currently ICU for COVID-19 pneumonia. He is intubated and on mechanical ventilation. He has a PEEP of 15. His Eliquis remains on hold. Afebrile. WBC is 9.3 hemoglobin 7.7 platelets 50 sodium 133 potassium 4.7 creatinine 4.31 patient is scheduled for hemodialysis tomorrow PHYSICAL EXAM: VITAL SIGNS: Reviewed. GENERAL: Well-developed in no acute distress. HEENT: No sclera icterus. Extraocular movements grossly intact. Moist buccal mucosa. Head is atraumatic, normocephalic. ABDOMEN: Soft. Nondistended. Nontender. NEUROLOGIC: Intubated and sedated ASSESSMENT: 1. Acute hypoxic respiratory failure secondary to COVID-19 pneumonia. Patient requiring prolonged mechanical ventilation 2. Severe protein calorie malnutrition PLAN: -Patient scheduled tracheostomy and PEG tube placement tomorrow, 06/26/[address] ty -Continue to hold Eliquis -Hold tube feedings after midnight -Continue ICU management and supportive care Physician Conference Interpreter note has been reviewed by physician. Signing provider agrees with the documented findings, assessment, and plan of care. Objective - Vital Signs Vital signs: Vital Signs Temp 97.5 F L 06/25/21 12:00 Pulse 72 06/25/21 12:00 Resp 36 H 06/25/21 12:00 BP 159/72 06/25/21 10:00 Pulse Ox 90 L 06/25/21 12:00 Intake & Output 06/24/21 06/25/21 06/25/21 18:59 06:59 18:59 Intake Total 1025.69 811.88 516.182 Output Total 3140 20 500 Balance -2114.31 791.88 16.182 Weight 121.2 kg Intake: IV 276 253 138 0.9 240 220 120 Pressure bag 36 33 18 Intake, IV Titration 704.69 558.88 348.182 Amount Cisatracurium 200 mg In 341.12 58.88 101.332 Sodium Chloride 0.9% 180 ml @ 1 MCG/KG/MIN 5.88 mls/hr IV .Q24H [facility] Rx#: [id number] fentaNYL (PF). 1,000 mcg 31.41 100 81.402 In Sodium Chloride 0.9% 80 ml @ 0.25 MCG/KG/HR 2. 765 mls/hr IV .Q24H [facility] Rx#:[id number] propofoL 1,000 mg In 332.16 400 165.448 Empty Bag 1 bag @ Titrate IV .Q0M [facility] Rx#: [id number] Tube Feeding 45 30 Output: Gastric Drainage 800 500 Urine 40 20 0 Hemodialysis 2300 Other: Voiding Method Indwelling Catheter Indwelling Catheter Indwelling Catheter ABP, PAP, CO, CI - Last Documented Arterial Blood Pressure 121/65 - Labs CBC & Chem 7: 06/25/21 08:46 06/25/21 03:50 Labs: Abnormal Lab Results - Last 24 Hours (Table) 06/24/21 06/24/21 06/25/21 Range/Units 03:35 18:06 03:50 RBC (4.30-5.90) m/uL Hgb (13.0-17.5) gm/dL Hct (39.0-53.0) % Plt Count (150-450) k/uL Neutrophils # (1.3-7.7) k/uL Lymphocytes # (1.0-4.8) k/uL D-Dimer 6.90 H (<0.60) mg/L FEU ABG pH (7.35-7.45) ABG pO2 (83-108) mmHg ABG HCO3 (21-25) mmol/L ABG O2 Saturation (94-97) % Sodium (137-145) mmol/L Carbon Dioxide (22-30) mmol/L BUN (9-20) mg/dL Creatinine (0.66-1.25) mg/dL POC Glucose (mg/dL) 103 H (75-99) mg/dL Calcium (8.4-10.2) mg/dL C-Reactive Protein (<1.0) mg/dL Procalcitonin 3.90 H (0.02-0.09) ng/mL 06/25/21 06/25/21 06/25/21 Range/Units 03:50 04:40 08:46 RBC 2.58 L (4.30-5.90) m/uL Hgb 7.7 L (13.0-17.5) gm/dL Hct 23.4 L (39.0-53.0) % Plt Count 50 L (150-450) k/uL Neutrophils # 8.3 H (1.3-7.7) k/uL Lymphocytes # 0.6 L (1.0-4.8) k/uL D-Dimer (<0.60) mg/L FEU ABG pH 7.33 L (7.35-7.45) ABG pO2 62 L (83-108) mmHg ABG HCO3 20 L (21-25) mmol/L ABG O2 Saturation 90.6 L (94-97) % Sodium 133 L (137-145) mmol/L Carbon Dioxide 18 L (22-30) mmol/L BUN 72 H (9-20) mg/dL Creatinine 4.31 H (0.66-1.25) mg/dL POC Glucose (mg/dL) (75-99) mg/dL Calcium 8.0 L (8.4-10.2) mg/dL C-Reactive Protein 7.7 H (<1.0) mg/dL Procalcitonin (0.02-0.09) ng/mL
--- NOTE | 2021-06-25 16:23 | P.PN ---
Subjective Progress Note Date: 06/25/21 This is a 75-year-old male who was recently admitted with COVID-19 infection with acute hypoxic respiratory failure and is being closely monitored. Pulmonary following closely and patient is maintained on dexamethasone along with Lovenox and vitamin and zinc supplements. Patient currently maintained on 15 L high flow via nasal cannula with supplemental use of 15 L nonrebreather. Patient states his breathing is slightly improved and not requiring a nonrebreather as often. Instructed the patient to use incentive spirometer and increase activity as tolerated. Patient continues to be extremely weak and will have PT/OT evaluate the patient once more stable. 06/06/2021 Patient is seen in follow-up this morning states his shortness of breath has slightly worsened and his recovery time and working to breathe has become more difficult. Patient is continued on 15 L high flow along with nonrebreather intermittently and having to use it more frequently today he states. Incentive spirometer at the bedside and instructed the patient to continue to use at least 10 times every hour while awake and encouraged increased activity as tolerated. Patient states he walked to the bathroom with assistance and became extremely dyspneic. Patient is afebrile. D-dimer is 4.72 with a WBC of 16 and hemoglobin is stable at 15.4. Sodium is 138 with a potassium of 4.5 and current creatinine is 0.63. LDH is elevated at 2492 and CRP is 6.5. Chest x-ray today shows findings consistent with COVID-19 pneumonia with bilateral interstitial and airspace disease present. 06/07/2021 Patient is seen and evaluated in follow up this morning and is having increasing shortness of breath and on 15L high flow via NC and 15 L non-rebreather. Patient has been back in bed and attempting position changes frequently along with prone position. Patient continues on lovenox, baracitinib, vitamin and zinc supplement s,and steroids. Pulmonary following closely. 06/10/2021 Patient is seen in follow up this morning and is now maintained on airvo at 60% and continues to be extremely dyspneic with minimal exertion. Patient also continues with 15L Non rebreather as needed. Patient is maintained on lovenox along with baricitinib and IV steroids with pulmonary following. Patient states he has no reserve and taking longer periods of time to recover with attempting to position change or use the urinal. 06/11/2021 Patient is seen in follow-up and evaluated this morning and is continued on Airvo and maintaining oxygen saturations in the low 90s. Pulmonary following closely. Patient is afebrile. Patient is continued on vitamin and zinc supplements along with Baricitinib and subcutaneous Lovenox along with IV steroids and will continue. Patient's d-dimer today is elevated at 18.25 and will increase Lovenox to 50 subcu twice daily. White blood count today is 18.6 and hemoglobin is stable at 13.7, sodium is 139 with a potassium of 4.3 current creatinine is 0.7. Inflammatory markers are elevated with some trending down and CRP is 1.5, LDH is 1968 and alk phos is 168. Patient is afebrile. Patient continues to be extremely anxious and will continue Xanax as needed. Encouraged increase activity as tolerated and continued position changes with incentive spirometer use. 06/12/2021 Patient is seen in follow-up this morning with no acute issues noted overnight. Patient continues on Airvo with a flow rate of 55 and FiO2 of 80% maintaining oxygen saturations above 90%. Pulmonary following closely and we'll continue to wean as tolerated. Patient continues on Lovenox twice daily along with vitamin and zinc supplements and continued on IV steroids along with albuterol and Baricitinib. White blood count is 23.7 with a hemoglobin of 14.1, sodium is 139 with a potassium of 4.4 and current creatinine is 0.62. Will repeat chest x-ray along with inflammatory markers in the morning. 06/13/2021 Patient is seen and evaluated in follow-up as morning and continues to be on Airvo. Patient appears to be more raspy with some sputum and congested today with a hoarse voice. Infectious disease and pulmonary following closely. Sputum culture from 06/02 just today preliminary showing gram-negative bacilli along with Essence albicans and patient is being started on IV cefepime with repeat sputum culture ordered along with oral Diflucan. White blood count is 23.5 with hemoglobin of 13.8, sodium is 137 and potassium is 5.5 and current creatinine is 0.55. LFTs are mildly elevated. Repeat d-dimer along with CRP and LDH have been ordered. Will repeat a.m. labs. Chest x-ray today shows con tinued peripheral and lower lung interstitial infiltrates of Covid pneumonia without significant change. 06/14/2021 Patient is seen and evaluated in follow-up this morning continues to be dyspneic and requesting to go to the bed as he has been sitting up in the chair all day. Patient has been started on Diflucan along with IV cefepime and sputum culture from 06/02/2021 resulted showing Pseudomonas aeruginosa along with Essence albicans. Infectious disease is following closely. Patient is completing Baricitinib and will be transitioned to oral prednisone taper with pulmonary following closely. Patient has been started on eliquis. D-dimer today has trended down to 11.02, LDH is 2178, CRP is 3.2, liver functions trending down. White blood count slightly trending down at 20.2 and hemoglobin is stable at 13.7, sodium is 136 with a potassium of 4.3 and current creatinine is 0.57. Continues to have a mildly raspy voice with some throat dryness and will add Cepacol. 06/15/2021 Patient evaluated in bed and is resting on the BiPAP in the intensive care unit, he had desaturated this morning will be moved to the bathroom and initially was on a 15L HF, however is now requiring BiPAP. Patient was started on a Precedex drip. Repeat chest x-ray today which revealed persistent multifocal and confluent bilateral reticulonodular opacities is consistent with known coronary infection more prominent in the lower lungs. Patient finished a course of therapy with Baricitinib and transitioned to oral prednisone. Labs reviewed today include a white blood cell count 21.2, hemoglobin of 12.5. Blood gases show a pO2 of 32 and O2 saturation of 50.3. Chloride is 110, CO2 20, sodium 137, potassium 4. LDH is worse today at 2277, alk phos 158, CRP is trending upwards of 4.6. Patient has remained afebrile, heart rate is now 83, respirations 32, blood pressure 124/68. Oxygen saturation is maintaining in the mid to high 80s on 100% BiPAP. Patient is nothing by mouth and oral medications are unable to be given. Patient is on IV cefepime for a sputum culture positive for Pseudomonas. He is IV Diflucan for oral candidiasis that was improving as of yesterday. 06/16/2021 Patient is evaluated in the intensive care unit, he is status post intubation and has NG tube in place. Labs reviewed today included white blood cell, 44.2, d-dimer greater than 34. ABGs from the A-line included a pH of 7.15, pCO2 of 71, total CO2 is 27 and oxygen saturation of 98. Bicarb is 25 and his pO2 is 107. Additional labs include a serum potassium 5.1, chloride of 109, BUN of 27, creatinine 1.06. Vital signs include a heart rate of 123 tachycardia, respiratory rate of 36, blood pressure 100/50, he is 98% oxygen saturation. Patient is on vasopressors for his blood pressure. Repeat blood cultures are negative. Patient is receiving propofol for sedation. His chest x-ray was reviewed which is showing bilateral pulmonary infiltrates demonstrating COVID- 19 pneumonia with ARDS. Patient is still getting IV cefepime for a sputum culture Pseudomonas although his pro calcitonin level is 0.03 which is not usually indicative of a bacterial infection. Additional inflammatory markers remain elevated. Patient did receive 2 L saline bolus. Repeat labs in the morning, prognosis is guarded for this patient. 06/17/2021 Patient is seen in follow-up continues to be monitored closely in the ICU with multiple medical consultations following. Prognosis is extremely guarded. Patient's respiratory status significantly worsened requiring mechanical ventilation and intubation and currently patient is sedated. White blood count is worsened at 26.1 and hemoglobin is 12.2, d-dimer is 27.06, ABG is 7.16 pH with a pCO2 of 57 and a pO2 of 68 and bicarb is 20, sodium is 140 with a potassium of 5.0 and current creatinine has worsened at 2.29 pro calcitonin is 24.40. Infectious disease along with pulmonary germination testing manager following closely. Patient continues on cefepime along with eliquis, vitamin and zinc supplements and patient has finished Baricitinib. Patient was on oral Decadron and is being transitioned back to IV dexamethasone along with Diflucan. Patient was given a dose of IV Lasix and nephrology has been consulted. Cardiology consulted as well and patient is currently on amiodarone drip along with Cleviprex and currently sedated on propofol. Patient also has norepinephrine drip as well. Patient being started on sodium bicarb drip. Patient also has low-grade fevers. 06/18/2021 Patient is seen in follow up in the ICU and maintained on mechanical vent intubated and sedated. Patient continues on NImbex, sodium bicarb, amiodarone, and being started on fentanyl as IV lasix drip with multiple medical consultations following. Kidney functions continue to deteriorate with nephrology following closely. Discussion being had about possible hemodialysis if kidney functions continue to worsen. Creatinine currently 3.69 today. 06/19/2021 Patient remains on mechanical vent with minimal urine output note and extensive volume overload with worsening kidney functions and would like to proceed with hemodialysis catheter placement with nephrology following closely. Multiple consultations following and Dr. Mann consulted for hemodialysis catheter placement and will hold eliquis. Amiodarone being transitioned to oral with cardiology following closely. Continue close monitoring in the ICU. Overall Prognosis remains extremely poor and guarded. 06/20/2021 Patient is seen and evaluated in follow-up continue to be closely monitored with multiple medical consultations following in the ICU. Patient remains intubated on mechanical ventilation and sedated. Kidney functions continue to worsen and patient is an extensive volume overload and has received dialysis catheter today and will initiate hemodialysis. Patient was maintained on IV Lasix drip which is being transitioned to IV push Lasix twice daily with nephrology following closely. Patient also continues on IV cefepime along with dexamethasone, vitamin and zinc supplements and continues on eliquis as well. White blood count 11.9 and hemoglobin is 9.6, platelets are 61 and d-dimer is 8.40. Sodium is 135 with a potassium of 5.0 and current BUN is 99 with a creatinine of 5.23. LDH is 1015 and pro calcitonin is 13.10. Prognosis remains extremely guarded. 06/21/2021 Patient is evaluated in follow up this morning and continues to be monitored closely in the ICU. On mechanical vent with an FI02 of 50%. Currently receiving hemodialysis and will likely require daily treatments if tolerated for extensive overload. Patient continues on IV lasix twice daily along with Nimbex, propofol, and fentanyl. Chest xray done today. Patient continues on IV cefepime with most recent repeat sputum culture revealing no growth. Infectious disease following closely. 06/22/2021 Patient remains intubated in the ICU, on ventilatory before meals settings, tidal volume 450, 50% FiO2, PEEP of 16, saturating 80%. ABG showing pO2 66, pCO2 42, pH 7.32, he was dialyzed for 2-1/2 L removed., He is making urine He remains sedated with propofol and he is paralyzed with Nimbex. His sputum is growing pseudomonas receiving antimicrobial therapy of cefepime, ID is following. No fever this morning, blood pressure 09/26/1939/50. Chest x-ray showing extensive bilateral airspace disease, correlate for pneumonia or ARDS. In atrial fibrillation with controlled ventricular rate 06/23/2021 Patient remains intubated on ventilatory support in the ICU, currently on assist control, 55% FiO2, PEEP of 14, TG 450. ABG this morning showing pH 7.31, pCO2 43, pO2 54, bicarb 22. O2 saturations marginal 90-91%, blood pressure stable. He remains in atrial fibrillation, with controlled ventricular rate, antic oagulated with Eliquis. Labs today show sodium 135, creatinine 4.18, WBC 12.7, hemoglobin 8.3 platelets 40. He is on IV Lasix, low urine output 270 ml yesterday Continue systemic steroids of Decadron 6 daily, eyes receiving antimicrobial therapy with cefepime, and fluconazole. sedated with fentanyl. 06/24/2021 Patient is seen and evaluated continues to be closely monitored in the ICU. Patient is currently receiving hemodialysis with an attempt of 2 L removal as the goal is 3 although patient's blood pressure is not tolerating. Nephrology and pulmonary germination testing manager following closely. General surgery has been consulted for possible PEG and trach tube placement. Patient continues on Cleviprex along with fentanyl and propofol, IV dexamethasone, vitamin and zinc supplements, scheduled Reglan and IV cefepime. No reported bowel movements and patient not tolerating tube feeds with a large amount of residual noted in the NG. Chest x- ray today shows interval development of pneumomediastinum is suspected with arts and progression of subcutaneous emphysema. 06/25/2021 Patient is seen this morning in follow-up continues to be closely monitored in the ICU with multiple medical consultations following. Patient did not receive hemodialysis today and plan is scheduled for tomorrow with nephrology following closely. Eliquis remains on hold as general surgery plans for tracheostomy and PEG tube placement tomorrow. Patient continues to have no bowel movement and have ordered fleets enema and will continue with bowel regimen. Chest x-ray today shows continued extensive overlying subcutaneous emphysema with pneumomediastinum and bilateral compliant reticulonodular opacities related to COVID-19 infection again noted with no significant change from previous. Patient is maintained on IV cefepime along with Cleviprex, IV dexamethasone, fentanyl and propofol, scheduled Reglan and is also being started on sodium bicarb. Labs: Sodium is 133, potassium is 4.7, BUN 72, creatinine is 4.31, LDH 605, CRP 7.7, D-dimer is 6.90, WBC 9.3, hemoglobin is 7.7, platelets 50 Review of systems: Unable to complete a full review of symptoms as patient is sedated and on a ventilator. Active Medications Acetaminophen (Acetaminophen Tab 325 Mg Tab) 650 mg PO Q6HR PRN PRN Reason: Fever and/ or Mild Pain Last Admin: 06/14/21 22:22 Dose: 650 mg Documented by: Albuterol Sulfate (Albuterol Hfa Inhaler) 2 puff INHALATION RT-QID [facility] Last Admin: 06/25/21 15:44 Dose: 2 puff Documented by: Albuterol Sulfate (Albuterol Hfa Inhaler) 2 puff INHALATION RT-QID PRN PRN Reason: Shortness Of Breath Or Wheezing Last Admin: 06/15/21 03:30 Dose: 2 puff Documented by: Amiodarone HCl (Amiodarone 200 Mg Tab) 200 mg PO BID [facility] Last Admin: 06/25/21 09:09 Dose: 200 mg Documented by: Artificial Tears (Artificial Tears-Hypromellose Drops 15 Ml Btl) 2 drops BOTH EYES Q4HR [facility] Last Admin: 06/25/21 15:34 Dose: 2 drops Documented by: Ascorbic Acid (Ascorbic Acid 500 Mg Tab) 500 mg PO DAILY [facility] Last Admin: 06/25/21 09:08 Dose: 500 mg Documented by: Benzocaine/Menthol (Benzocaine/Menthol Lozeng 1 Each Lozenge) 1 each MUCOUS MEM Q4HR PRN PRN Reason: Sore Throat Bisacodyl (Bisacodyl 10 Mg Supp) 10 mg RECTAL DAILY [facility] Last Admin: 06/25/21 09:09 Dose: 10 mg Documented by: Calcium Acetate (Calcium Acetate 667 Mg Tab) 667 mg PO TID-W/MEALS [facility] Last Admin: 06/25/21 12:02 Dose: 667 mg Documented by: Chlorhexidine Gluconate (Chlorhexidine Gluconate 15 Ml Cup) 15 ml MUCOUS MEM BID [facility] Last Admin: 06/25/21 09:08 Dose: 15 ml Documented by: Cholecalciferol (Cholecalciferol 25 Mcg (1000 Iu) Tablet) 25 mcg PO DAILY [facility] Last Admin: 06/25/21 09:08 Dose: 25 mcg Documented by: Cyanocobalamin (Cyanocobalamin 500 Mcg Tab) 1,000 mcg PO DAILY [facility] Last Admin: 06/25/21 09:08 Dose: 1,000 mcg Documented by: Dexamethasone Sodium Phosphate (Dexamethasone Sod Phosphate 10 Mg/Ml 1 Ml Vial) 6 mg IV DAILY [facility] Last Admin: 06/25/21 09:09 Dose: 6 mg Documented by: Fluconazole (Fluconazole 100 Mg Tab) 100 mg PO DAILY [facility] Last Admin: 06/25/21 09:08 Dose: 100 mg Documented by: Propofol 1,000 mg/ IV Solution 100 mls @ 0 mls/hr IV .Q0M [facility]; Protocol Last Admin: 06/25/21 15:34 Dose: 50 mcg/kg/min, 36.36 mls/hr Documented by: Norepinephrine Bitartrate 8 mg (/ Sodium Chloride) 258 mls @ 9.482 mls/hr IV .Q24H [facility]; Protocol Last Admin: 06/25/21 14:38 Dose: Not Given Documented by: Cisatracurium Besylate 200 mg/ (Sodium Chloride) 200 mls @ 5.88 mls/hr IV .Q24H [facility]; Protocol Last Admin: 06/25/21 09:08 Dose: 2 mcg/kg/min, 11.76 mls/hr Documented by: Fentanyl Citrate 1,000 mcg/ (Sodium Chloride) 100 mls @ 2.765 mls/hr IV .Q24H [facility]; Protocol Last Admin: 06/25/21 14:38 Dose: 0.6 mcg/kg/hr, 6.636 mls/hr Documented by: Cefepime HCl 1 gm/ Sodium (Chloride) 50 mls @ 12.5 mls/hr IVPB HS [facility] Last Admin: 06/24/21 20:28 Dose: 12.5 mls/hr Documented by: Metoclopramide HCl (Metoclopramide 5 Mg/Ml 2 Ml Vial) 5 mg IVP Q8H [facility] Last Admin: 06/25/21 12:02 Dose: 5 mg Documented by: Metoprolol Tartrate (Metoprolol Tartrate 25 Mg Tab) 25 mg PO DAILY [facility] Last Admin: 06/25/21 09:08 Dose: 25 mg Documented by: Pantoprazole Sodium (Pantoprazole 40 Mg/10 Ml Vial) 40 mg IVP BID [facility] Last Admin: 06/25/21 09:09 Dose: 40 mg Documented by: Senna/Docusate Sodium (Sennosides-Docusate Sodium 1 Each Tab) 1 each PO DAILY [facility] Last Admin: 06/25/21 09:08 Dose: 1 each Documented by: Sodium Bicarbonate (Sodium Bicarbonate Tab 650 Mg Tab) 650 mg PO TID [facility] Last Admin: 06/25/21 09:18 Dose: 650 mg Documented by: Zinc Sulfate (Zinc Sulfate 220 Mg Cap) 220 mg PO DAILY [facility] Last Admin: 06/25/21 09:09 Dose: 220 mg Documented by: Physical exam: Gen: This is a 75-year-old male sedated and intubated on propofol and mechanical ventilation. Temp is 97.7, pulse is 78, resp are 36, blood pressure is 125/62 arterial, and pulse ox is 96% on mechanical vent with an FI02 of 55% HEENT: Head is atraumatic, normocephalic. Pupils equal, round. Sclerae is anicteric. NECK: Supple. No JVD. No lymphadenopathy. No thyromegaly. LUNGS: Diminished breath sounds bilaterally with scattered coarse rhonchi and crackles noted. Extensive subcutaneous emphysema persists HEART: Irregular S1, S2 are muffled ABDOMEN: Soft. Edematous. obese. Hypoactive Bowel sounds are present. No masses. No guarding or rigidity noted. EXTREMITIES: Extensive pitting edema noted of upper and lower bilateral extremities and much of the body. NEUROLOGICAL: Patient is intubated and sedated Assessment: Acute COVID-19 infection with acute component of interstitial pneumonia, bilateral, possibly ARDS with acute hypoxic respiratory failure and possible sepsis secondary to COVID-19 Status post mechanical ventilation and intubation after failed BIPAP on 06/15/2021 secondary to above Subcutaneous emphysema Possible developing new pneumomediastinum as noted on x-ray acute renal failure likely ATN with worsening kidney functions and minimal urine output requiring hemodialysis volume overload secondary to ARF metabolic acidosis afib with RVR currently rate controlled on oral amiodarone and metoprolol Lactic acidosis secondary to above Initial sputum culture showing Essence albicans and pseudomonas aeruginosa and maintained on IV cefepime repeat sputum culture showing aspergillus not fumigatus Oral candidiasis started on Diflucan, sputum cultures from 06/02/2021 Essence albicans Extensive interstitial bilateral COVID-19 pneumonia Elevated white blood count possibly secondary to above Possible subsegmental pulmonary embolism ruled out History of atrial fibrillation Anxiety Remote history of nicotine dependence GI prophylaxis: Protonix DVT prophylaxis: On eliquis is currently on hold for PEG and trach placement tomorrow Full code Plan: Recommend to continue with current medications and continue to closely monitor in the ICU. Patient remains on mechanical ventilation and has received hemodialysis catheter and currently receiving hemodialysis with nephrology following closely. Patient continues on IV cefepime with ID following closely as well. repeat sputum culture showing aspergillus not fumigatus. Chest x-ray today continues to show extensive subcutaneous emphysema with pneumomediastinum with no real changes from one day prior. eliquis 5 mg twice a day remains on hold as patient is scheduled to receive tracheostomy and PEG tube placement tomorrow. We'll hold tube feeds at midnight. Fleet enema ordered as patient continues to have no bowel movement. Patient continues on vitamin and zinc supplements IV dexamethasone and will continue. Patient has completed Baricitinib. Patient with extensive volume overload and has been receiving daily hemodialysis with nephrology following closely. No dialysis today. Plan is for possible Thursday/Thursday/Thursday hemodialysis to be continued. Prognosis is extremely guarded and will continue to monitor closely. Repeat labs and cxr in the am. Objective - Vital Signs Vital signs: Vital Signs Temp 97.9 F 06/25/21 00:00 Pulse 80 06/25/21 07:00 Resp 36 H 06/25/21 07:00 BP 116/58 06/24/21 18:00 Pulse Ox 95 06/25/21 07:00 Intake & Output 06/24/21 06/25/21 06/25/21 18:59 06:59 18:59 Intake Total 1025.69 811.88 23 Output Total 3140 20 0 Balance -2114.31 791.88 23 Weight 121.2 kg Intake: IV 276 253 23 0.9 240 220 20 Pressure bag 36 33 3 Intake, IV Titration 704.69 558.88 Amount Cisatracurium 200 mg In 341.12 58.88 Sodium Chloride 0.9% 180 ml @ 1 MCG/KG/MIN 5.88 mls/hr IV .Q24H [facility] Rx#: [id number] fentaNYL (PF). 1,000 mcg 31.41 100 In Sodium Chloride 0.9% 80 ml @ 0.25 MCG/KG/HR 2. 765 mls/hr IV .Q24H [facility] Rx#:[id number] propofoL 1,000 mg In 332.16 400 Empty Bag 1 bag @ Titrate IV .Q0M [facility] Rx#: [id number] Tube Feeding 45 Output: Gastric Drainage 800 Urine 40 20 0 Hemodialysis 2300 Other: Voiding Method Indwelling Catheter Indwelling Catheter ABP, PAP, CO, CI - Last Documented Arterial Blood Pressure 135/62 - Labs CBC & Chem 7: 06/25/21 08:46 06/25/21 03:50 Labs: Abnormal Lab Results - Last 24 Hours (Table) 06/24/21 06/25/21 06/25/21 Range/Units 18:06 03:50 03:50 D-Dimer 6.90 H (<0.60) mg/L FEU ABG pH (7.35-7.45) ABG pO2 (83-108) mmHg ABG HCO3 (21-25) mmol/L ABG O2 Saturation (94-97) % Sodium 133 L (137-145) mmol/L Carbon Dioxide 18 L (22-30) mmol/L BUN 72 H (9-20) mg/dL Creatinine 4.31 H (0.66-1.25) mg/dL POC Glucose (mg/dL) 103 H (75-99) mg/dL Calcium 8.0 L (8.4-10.2) mg/dL C-Reactive Protein 7.7 H (<1.0) mg/dL 06/25/21 Range/Units 04:40 D-Dimer (<0.60) mg/L FEU ABG pH 7.33 L (7.35-7.45) ABG pO2 62 L (83-108) mmHg ABG HCO3 20 L (21-25) mmol/L ABG O2 Saturation 90.6 L (94-97) % Sodium (137-145) mmol/L Carbon Dioxide (22-30) mmol/L BUN (9-20) mg/dL Creatinine (0.66-1.25) mg/dL POC Glucose (mg/dL) (75-99) mg/dL Calcium (8.4-10.2) mg/dL C-Reactive Protein (<1.0) mg/dL Microbiology - Last 24 Hours (Table) 06/22/21 01:39 Gram Stain - Final Sputum Sputum Culture - Final Aspergillus not fumigatus
[2021-06-25 17:58] LABS: Glucose,Whole Blood 104 mg/dL (75-99)
[2021-06-25] MEDS: CEFEPIME 1 GM in SODIUM CHLORIDE 0.9% 50 ML IVPB SCH (20:44)
[2021-06-26] MEDS: ARTIFICIAL TEARS-HYPROMELLOSE DROPS 15 ML BTL BOTH EYES SCH ×6 (00:01→20:22)
[2021-06-26 01:03] LABS: Glucose,Whole Blood 91 mg/dL (75-99)
--- NOTE | 2021-06-26 03:50 | PN ---
PROGRESS NOTE DATE OF SERVICE: 06/25/2021 REASON FOR FOLLOWUP: 1. Pneumonia. 2. Positive sputum culture with aspergillus. INTERVAL HISTORY: The patient is afebrile. The patient is hemodynamically stable, not on pressor support. FiO2 is currently stable. No significant purulent secretions through the ET, diarrhea or any other changes reported by the nursing staff. PHYSICAL EXAMINATION: Blood pressure 140/63, pulse of 72. Temperature 97.6. He is 95% on 50% FiO2. General description is an elderly male intubated on the vent. Respiratory system: Unlabored breathing, decreased breath sounds in the bases. No wheeze. Heart S1, S2. Regular rate and rhythm. Abdomen soft, no tenderness. LABS: Creatinine is 4.31, CRP is 7.7. White count normal. DIAGNOSTIC IMPRESSION AND PLAN: Patient with acute respiratory failure which is multifactorial in this patient who did have a COVID-19 pneumonia concern for secondary bacterial pneumonia. Sputum was positive for Pseudomonas with repeat showing aspergillus, possible colonization, as the patient currently not behaving as a pneumonia with no fever or elevated white count and Proteus was trending down. Continue cefepime and monitor clinical course closely. MMODL / IJN: [id number] /
[2021-06-26] MEDS: METOCLOPRAMIDE 5 MG/ML 2 ML VIAL IVP SCH ×3 (04:02→20:22)
[2021-06-26] MEDS: CISATRACURIUM 200 MG in SODIUM CHLORIDE 0.9% 180 ML IV SCH ×3 (04:02→23:02)
[2021-06-26] MEDS: fentaNYL (PF). 1,000 MCG in SODIUM CHLORIDE 0.9% 80 ML IV SCH ×2 (04:03→18:03)
[2021-06-26 05:00] LABS: ABG Base Excess -8.8 mmol/L; ABG HCO3 18 mmol/L (21-25); ABG Oxygen Saturation 91.9 % (94-97); ABG PCO2 37 mmHg (35-45); ABG PH 7.29 (7.35-7.45); ABG PO2 69 mmHg (83-108); ABG TCO2 19 mmol/L (19-24); Allen Test Performed? Yes
[2021-06-26 05:12] LABS: Calcium 8.2 mg/dL (8.4-10.2); Potassium 5.2 mmol/L (3.5-5.1)
[2021-06-26 05:20] LABS: Basophils % (A) 0 %; Eosinophils # (A) 0.1 k/uL (0-0.7); Eosinophils % (A) 1 %; HGB 7.9 gm/dL (13.0-17.5); Lymphocytes # (A) 0.3 k/uL (1.0-4.8); Lymphocytes % (A) 4 %; MCH 30.3 pg (25.0-35.0); MCHC 34.5 g/dL (31.0-37.0); Mean Platelet Volume 11.7; Monocytes # (A) 0.2 k/uL (0-1.0); Monocytes % (A) 3 %; Neutrophils # (A) 7.7 k/uL (1.3-7.7); Neutrophils % (A) 92 %; RBC 2.62 m/uL (4.30-5.90); RDW 15.2 % (11.5-15.5); WBC 8.4 k/uL (3.8-10.6)
[2021-06-26 06:08] LABS: Platelet Count 66 k/uL (150-450)
[2021-06-26] MEDS: CALCIUM ACETATE 667 MG TAB PO SCH ×3 (06:21→15:57)
[2021-06-26] MEDS: ALBUTEROL HFA INHALER INHALATION SCH ×4 (07:25→20:23)
[2021-06-26] MEDS ORDERED: LACTATED RINGERS 1,000 ML IV SCH (07:42)
--- NOTE | 2021-06-26 07:57 | XR ---
EXAMINATION TYPE: XR chest 1V portable DATE OF EXAM: 06/26/2021 COMPARISON: 06/25/2021 INDICATION: Mechanical ventilation TECHNIQUE: Single frontal view of the chest is obtained. FINDINGS: The heart size is normal. The pulmonary vasculature is prominent. Diffuse lung opacities are present bilaterally. There is some consolidation which is worsening of the right lower lobe. There is extensive subcutaneous emphysema present. There is a new line on the lateral right chest cou ld indicate an underlying pneumothorax extensive emphysema limits evaluation for pneumothorax, CT may be more accurate for size assessment. Endotracheal tube tip is above the evette. Nasogastric tube transverses the thorax. Left central veno us catheter is present, the tip is in the superior vena cava region. IMPRESSION: 1. There may be interval development of a right-sided pneumothorax. Pneumothorax evaluation is limite d due to extensive subcutaneous emphysema present bilaterally. CT would be more accurate for pneumoth orax size assessment. 2. Worsening right lower lobe consolidation. 3. Diffuse bilateral lung infiltrates. 4. Lines and catheters discussed above
[2021-06-26] MEDS: CHLORHEXIDINE GLUCONATE 15 ML CUP MUCOUS MEM SCH ×2 (08:22→22:06)
[2021-06-26] MEDS: DEXAMETHASONE SOD PHOSPHATE 10 MG/ML 1 ML VIAL IV SCH (08:22)
[2021-06-26] MEDS: PANTOPRAZOLE 40 MG/10 ML VIAL IVP SCH ×2 (08:22→22:06)
[2021-06-26] MEDS: METOPROLOL TARTRATE 25 MG TAB PO SCH (08:22)
[2021-06-26] MEDS: AMIODARONE 200 MG TAB PO SCH ×2 (08:22→22:06)
[2021-06-26] MEDS: SODIUM BICARBONATE TAB 650 MG TAB PO SCH ×3 (08:24→22:06)
[2021-06-26] MEDS: FLUCONAZOLE 100 MG TAB PO SCH (08:24)
--- NOTE | 2021-06-26 09:35 | P.PN ---
Subjective Progress Note Date: 06/26/21 Principal diagnosis: COVID-19 pneumonia The patient is seen today 06/19/2021 in follow-up in the intensive care unit. He remains intubated and on the mechanical ventilator. Current settings are assist-control rate of 36, tidal volume 430, FiO2 50% and a PEEP of 14. Morning blood gases revealed a pO2 of 60, pCO2 of 51, pH 7.27. He remains sedated on propofol at 50 mcg/kg/m, paralyzed with Nimbex at 1.5 mcg/kg/m. He is on fentanyl at 0.5 mcg/kg/hr. Amiodarone drip at 0.5 mg/m. Lasix drip at 10 mg per hour. D5W with 3 A of sodium bicarbonate 150 MLS per hour. Remains on cefepime and Diflucan. Anticoagulated with Eliquis. He remains on Decadron 6 mg IV daily. Vitamin supplements. Chest x-ray continues to show few scattered lung infiltrates. Stable compared to previous. Left central line in place. Endotracheal tube and gastric tubes in good position. Sputum culture from 06/02/2021 was positive for pseudomonas aeruginosa and Essence. Follow up cultures reveal no growth. Blood cultures reveal no growth. White count 16.0. Hemoglobin 10.4. Platelet count 71,000. Lymphocytes 0.4. D-dimer 10.4 seconds. Sodium 135. Potassium 4.4. Bicarb 22. BUN 75. Creatinine 4.63. LDH 1095. Blood glucose 151. The patient is seen today 06/20/2021, the intensive care unit. He remains intubated and on mechanical ventilator. Current mode of assist control with a respiratory rate of 36, tidal volume 450, FiO2 55% and a PEEP of 16. Morning blood gases on 60% FiO2 revealed a PaO2 of 77, pCO2 45, pH 7.29. Peak airway pressures 38, plateau pressure 36. He remains on fentanyl at 0.5 mcg/kg per hour, Lasix drip at 10 mg per hour, propofol at 50 mcg/g/m, Nimbex at 2mcg/kg/min. 0.9 normal saline at 10 MLS per hour. He remains on cefepime and Diflucan. He is currently in atrial fibrillation with controlled ventricular rate. Chest x-ray continues to show diffuse bilateral interstitial airspace disease. More focal left basilar consolidation also persists. Small left pleural effusion. No appreciable pneumothorax. Increasing subcutaneous emphys ingris at the base of the left neck and along the chest bilaterally. Follow-up sputum culture revealed no growth. Blood cultures reveal no growth. White count 11.9. Hemoglobin 9.6. Platelet count 61,000. Lymphocytes 0.4. D-dimer 8.4. Sodium 135. Potassium 5.0. Bicarb 21. Creatinine 5.23. BUN 99. Glucose 115. LDH 1015. He is continued on Decadron, and Eliquis, vitamin supplements. He is to receive a hemodialysis catheter today. Tube feedings currently on hold due to high residuals. Patient seen today 06/21/2021 in follow-up in the intensive care unit. He remains intubated and on mechanical ventilator. Current settings assist-control mode, respiratory rate 36, tidal volume 450, FiO2 50% and a PEEP of 16. Morning blood gases reveal a pO2 of 66, pCO2 42, pH 7.32. Chest x-ray continues to show bilateral patchy opacities along with subcutaneous emphysema which is a bit worse. 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 No clear evidence of pneumothorax. He did receive hemodialysis yesterday with 1 L removed. Plan is for hemodialysis again today. He remains in atrial fibrillation. Anticoagulated with Eliquis. Remains on antibiotics in the form of cefepime. He is also sedated on propofol 50 mcg/kg/m, paralyzed and Nimbex at 2 mcg/kg/m, fentanyl 5 mcg/mg/h. Initial sputum culture was positive for Pseudomonas and Essence. Follow-up sputum culture reveals no growth. Culture reveals no growth. White count 10.5. Hemoglobin 9.6. Platelet count 49,000. D-dimer 8.41. Sodium 134. Potassium 5.0. BUN 91. Creatinine 5.06. Glucose 94. LDH 842. C-reactive protein 3.8. Remains on Decadron. IV diuretics. Vitamin supplements. The patient is seen today 06/25/2021 in follow-up in the intensive care unit. He remains intubated, sedated, paralyzed. Currently in assist-control mode at a rate of 36, tidal volume 450, FiO2 50% and a PEEP of 14. Morning blood gases reveal pO2 of 62, pCO2 37, pH 7.33. He has 0.9 normal saline at 20 ML's per hour. Propofol 50 mcg/kg/m. Nimbex at 3 mcg/kg/m. Fentanyl 0.6 mcg/kg/hr. Vital AF at 15 ML's per hour. Chest x-ray continues to show extensive overlying subcutaneous emphysema with pneumomediastinum and bilateral confluent reticulonodular opacities secondary to COVID-19 infection. No significant change compared to yesterday. Sputum culture PVCs had revealed pseudomonas aeruginosa. More recently from 06/22/2021 Aspergillus not fumigatus. D-dimer 6.90. Sodium 133. Potassium 4.7. Bicarb 18. Creatinine 4.31. LDH 605. C- reactive protein 7.7. CBC is pending. He remains on cefepime and Diflucan. Continued on Decadron. Eliquis on hold. Remains on bronchodilators, vitamin supplements. The patient is seen today 06/26/2021 in follow-up in the intensive care unit. He remains intubated and on the mechanical ventilator. Then assist-control mode. Rate of 36, tidal volume 450, FiO2 50% and a PEEP of 14. Arterial blood gases reveal pO2 of 69, pCO2 37, pH 7.29. He remains on propofol at 50 mcg/k g/m. Nimbex at 3 mcg/kg/m. Fentanyl 0.6 mcg/kg per hour. Tube feedings are currently on hold. The plan is for tracheostomy and PEG tube placements today. Today's chest x-ray shows possible interval development of a right-sided tiny pneumothorax. Pneumothorax evaluation is limited due to the extensive subcutaneous emphysema seen bilaterally secondary to pneumomediastinum. Worsening right lower lobe consolidation. Diffuse bilateral lung infiltrates. Follow-up sputum culture positive for Aspergillus not fumigatus. Previous sputum culture was positive for pseudomonas. White count 8.4. Hemoglobin 7.9. Platelet count 66,000. Lymphocytes 0.3. Sodium 134. Potassium 5.2. Bicarb 16. BUN 83. Creatinine 5.26. Glucose 88. He remains on cefepime. Continued on Decadron. Bronchodilators, vitamin supplements. Objective - Vital Signs Vital signs: Vital Signs Temp 97.5 F L 06/26/21 04:00 Pulse 93 06/26/21 07:00 Resp 36 H 06/26/21 07:00 BP 159/72 06/25/21 10:00 Pulse Ox 96 06/26/21 07:00 Intake & Output 06/25/21 06/26/21 06/26/21 18:59 06:59 18:59 Intake Total 968.958 994.893 23 Output Total 510 30 0 Balance 458.958 964.893 23 Weight 125.1 kg 125.1 kg Intake: IV 299 353 23 0.9 260 220 20 Cefepime 2 gm In Sodium 100 Chloride 0.9% 100 ml @ 25 mls/hr IVPB Q8HR [facility] Rx# :[id number] Pressure bag 39 33 3 Intake, IV Titration 624.958 536.893 Amount Cisatracurium 200 mg In 212.660 158.172 Sodium Chloride 0.9% 180 ml @ 1 MCG/KG/MIN 5.88 mls/hr IV .Q24H [facility] Rx#: [id number] fentaNYL (PF). 1,000 mcg 81.402 89.033 In Sodium Chloride 0.9% 80 ml @ 0.25 MCG/KG/HR 2. 765 mls/hr IV .Q24H [facility] Rx#:[id number] propofoL 1,000 mg In 330.896 289.688 Empty Bag 1 bag @ Titrate IV .Q0M [facility] Rx#: [id number] Tube Feeding 45 75 Other 30 Output: Gastric Drainage 500 Urine 10 30 0 Other: Voiding Method Indwelling Catheter Indwelling Catheter ABP, PAP, CO, CI - Last Documented Arterial Blood Pressure 161/70 - Exam 75-year-old male patient who is currently intubated on a mechanical ventilator. Orogastric and orotracheal tube are both in place. The patient is sedated. The patient is paralyzed. HEENT revealed significant subcutaneous emphysema. Neck supple. Some left neck and chest subcutaneous emphysema noted. Cardiovascular examination reveals irregular rhythm rate. S1-S2 normal. No S3 or S4. No discernible murmur noted. . Heart sounds are distant. Lungs reveal coarse bilateral rhonchi. Crackles in the posterior bases. Breath sounds equal bilaterally. Abdomen soft bowel sounds are heard. No masses or tenderness. Extremities are intact. No cyanosis clubbing or edema. Skin is without rash or lesion Neurologic examination suboptimal as the patient is currently sedated and paralyzed. - Labs CBC & Chem 7: 06/26/21 04:00 06/26/21 04:00 Labs: Abnormal Lab Results - Last 24 Hours (Table) 06/24/21 06/25/21 06/25/21 Range/Units 03:35 08:46 17:57 RBC 2.58 L (4.30-5.90) m/uL Hgb 7.7 L (13.0-17.5) gm/dL Hct 23.4 L (39.0-53.0) % Plt Count 50 L (150-450) k/uL Neutrophils # 8.3 H (1.3-7.7) k/uL Lymphocytes # 0.6 L (1.0-4.8) k/uL ABG pH (7.35-7.45) ABG pO2 (83-108) mmHg ABG HCO3 (21-25) mmol/L ABG O2 Saturation (94-97) % Sodium (137-145) mmol/L Potassium (3.5-5.1) mmol/L Carbon Dioxide (22-30) mmol/L BUN (9-20) mg/dL Creatinine (0.66-1.25) mg/dL POC Glucose (mg/dL) 104 H (75-99) mg/dL Calcium (8.4-10.2) mg/dL Procalcitonin 3.90 H (0.02-0.09) ng/mL 06/26/21 06/26/21 06/26/21 Range/Units 04:00 04:00 04:55 RBC 2.62 L (4.30-5.90) m/uL Hgb 7.9 L (13.0-17.5) gm/dL Hct 23.0 L (39.0-53.0) % Plt Count 66 L (150-450) k/uL Neutrophils # (1.3-7.7) k/uL Lymphocytes # 0.3 L (1.0-4.8) k/uL ABG pH 7.29 L (7.35-7.45) ABG pO2 69 L (83-108) mmHg ABG HCO3 18 L (21-25) mmol/L ABG O2 Saturation 91.9 L (94-97) % Sodium 134 L (137-145) mmol/L Potassium 5.2 H (3.5-5.1) mmol/L Carbon Dioxide 16 L (22-30) mmol/L BUN 83 H (9-20) mg/dL Creatinine 5.26 H (0.66-1.25) mg/dL POC Glucose (mg/dL) (75-99) mg/dL Calcium 8.2 L (8.4-10.2) mg/dL Procalcitonin (0.02-0.09) ng/mL Assessment and Plan Assessment: 1 Acute hypoxemic respiratory failure secondary to coronavirus associated pneumonia. Unvaccinated. The patient had developed diffuse bilateral pulmonary infiltrates secondary to COVID-19 related pneumonia/ARDS. Subsequently the patient failed BiPAP therapy and he was intubated on 06/15/2021, currently sedated and paralyzed on a mechanical ventilator. Chest x-ray was noted difficult to exclude a tiny right pneumothorax. Pneumomediastinum with significant subcutaneous emphysema noted. 2 Acute COVID-19 related pneumonia with diffuse but the pulmonary infiltrates and diffuse groundglass pulmonary changes 3 Elevated inflammatory markers secondary to above 4 Acute renal failure with creatinine up to 5.26, GFR 10. Renal replacement therapy started 06/20/2021 5 History of chronic atrial fibrillation with recent RVR. On oral amiodarone. Eliquis for anticoagulation on hold for PEG and trach. 6 Elevated pro calcitonin, currently on cefepime 7 Pseudomonas and yeast in the sputum, likely secondary to immunosuppression provided by Solu-Medrol and Baricitinib. Follow-up sputum culture from 06/22/2021 now revealing aspergillus not fumigatus. 8 Extensive oropharyngeal candidiasis, currently on Diflucan 9 Leukocytosis, recovered 10 Hypotension. Recovered and off pressors currently Plan: The patient was seen and evaluated by Dr. Paris Chest x-ray, ABGs and labs reviewed Continues with significant subcutaneous emphysema secondary to pneumomediastinum Plan is for tracheostomy and PEG tube placement today Eliquis on hold Tube feeds on hold Continued on Decadron, vitamin supplements Overall prognosis is quite guarded We'll continue to follow and make further recommendations based on his clinical status Critical care time 36 minutes I, the cosigning physician, performed a history & physical examination of the patient. Lungs sounds with posterior crackles in the bases, bilateral scattered rhonchi. Maintaining O2 saturations in the 90s on 50% FiO2 with a PEEP of 14 via the mechanical ventilator. I discussed the assessment and plan of care with my nurse practitioner, Mar Ruelas. I attest to the above note as dictated by her.
[2021-06-26] MEDS: ASCORBIC ACID 500 MG TAB PO SCH (09:38)
[2021-06-26] MEDS: CHOLECALCIFEROL 25 MCG (1000 IU) TABLET PO SCH (09:38)
[2021-06-26] MEDS: CYANOCOBALAMIN 500 MCG TAB PO SCH (09:38)
[2021-06-26] MEDS: ZINC SULFATE 220 MG CAP PO SCH (09:39)
[2021-06-26] MEDS: SENNOSIDES-DOCUSATE SODIUM 1 EACH TAB PO SCH (09:39)
--- NOTE | 2021-06-26 09:50 | P.PN ---
Subjective Patient is seen in follow-up for acute kidney injury, currently hemodialysis dependent. Oliguric. Intubated. On 50% FiO2. Blood pressure stable. Scheduled for tracheostomy and PEG tube placement today. Vital signs are stable. General: Intubated. Regular rate and rhythm. Scrotal edema noted. No abdominal distention. Objective - Vital Signs Vital signs: Vital Signs Temp 97.5 F L 06/26/21 04:00 Pulse 93 06/26/21 07:00 Resp 36 H 06/26/21 07:00 BP 159/72 06/25/21 10:00 Pulse Ox 96 06/26/21 07:00 Intake & Output 06/25/21 06/26/21 06/26/21 18:59 06:59 18:59 Intake Total 968.958 994.893 23 Output Total 510 30 0 Balance 458.958 964.893 23 Weight 125.1 kg 125.1 kg Intake: IV 299 353 23 0.9 260 220 20 Cefepime 2 gm In Sodium 100 Chloride 0.9% 100 ml @ 25 mls/hr IVPB Q8HR [facility] Rx# :[id number] Pressure bag 39 33 3 Intake, IV Titration 624.958 536.893 Amount Cisatracurium 200 mg In 212.660 158.172 Sodium Chloride 0.9% 180 ml @ 1 MCG/KG/MIN 5.88 mls/hr IV .Q24H [facility] Rx#: [id number] fentaNYL (PF). 1,000 mcg 81.402 89.033 In Sodium Chloride 0.9% 80 ml @ 0.25 MCG/KG/HR 2. 765 mls/hr IV .Q24H [facility] Rx#:[id number] propofoL 1,000 mg In 330.896 289.688 Empty Bag 1 bag @ Titrate IV .Q0M [facility] Rx#: [id number] Tube Feeding 45 75 Other 30 Output: Gastric Drainage 500 Urine 10 30 0 Other: Voiding Method Indwelling Catheter Indwelling Catheter ABP, PAP, CO, CI - Last Documented Arterial Blood Pressure 161/70 - Labs CBC & Chem 7: 06/26/21 04:00 06/26/21 04:00 Labs: Abnormal Lab Results - Last 24 Hours (Table) 06/24/21 06/25/21 06/25/21 Range/Units 03:35 08:46 17:57 RBC (4.30-5.90) m/uL Hgb (13.0-17.5) gm/dL Hct (39.0-53.0) % Plt Count 50 L (150-450) k/uL Neutrophils # 8.3 H (1.3-7.7) k/uL Lymphocytes # 0.6 L (1.0-4.8) k/uL ABG pH (7.35-7.45) ABG pO2 (83-108) mmHg ABG HCO3 (21-25) mmol/L ABG O2 Saturation (94-97) % Sodium (137-145) mmol/L Potassium (3.5-5.1) mmol/L Carbon Dioxide (22-30) mmol/L BUN (9-20) mg/dL Creatinine (0.66-1.25) mg/dL POC Glucose (mg/dL) 104 H (75-99) mg/dL Calcium (8.4-10.2) mg/dL Procalcitonin 3.90 H (0.02-0.09) ng/mL 06/26/21 06/26/21 06/26/21 Range/Units 04:00 04:00 04:55 RBC 2.62 L (4.30-5.90) m/uL Hgb 7.9 L (13.0-17.5) gm/dL Hct 23.0 L (39.0-53.0) % Plt Count 66 L (150-450) k/uL Neutrophils # (1.3-7.7) k/uL Lymphocytes # 0.3 L (1.0-4.8) k/uL ABG pH 7.29 L (7.35-7.45) ABG pO2 69 L (83-108) mmHg ABG HCO3 18 L (21-25) mmol/L ABG O2 Saturation 91.9 L (94-97) % Sodium 134 L (137-145) mmol/L Potassium 5.2 H (3.5-5.1) mmol/L Carbon Dioxide 16 L (22-30) mmol/L BUN 83 H (9-20) mg/dL Creatinine 5.26 H (0.66-1.25) mg/dL POC Glucose (mg/dL) (75-99) mg/dL Calcium 8.2 L (8.4-10.2) mg/dL Procalcitonin (0.02-0.09) ng/mL Assessment and Plan Plan: Assessment: 1. Acute kidney injury secondary to ATN secondary to sepsis/covid-19 infection. Baseline creatinine is near 1. Currently hemodialysis dependent. Right femoral catheter placed June 20. Oliguric. 2. Volume overload. 3. Acute hypoxic respiratory failure secondary to covid-19 pneumonia and volume overload. 4. A. fib with RVR maintained on oral amiodarone. 5. Metabolic acidosis secondary to acute kidney injury. On oral bicarbonate. Expect further improvement postdialysis. 6. Hyperphosphatemia secondary to acute kidney injury maintained on PhosLo. Plan: Hemodialysis today with goal 2-3 L ultrafiltration. Plan for another treatment tomorrow. Stopped Lasix as anuric. Continue to monitor renal function and urine output. Wean FiO2. Scheduled for tracheostomy and PEG tube placement today.
[2021-06-26] MEDS: bisacodyL 10 MG SUPP RECTAL SCH (10:06)
[2021-06-26] MEDS ORDERED: SODIUM CHLORIDE 0.9% 500 ML 500 ML IV ONE (12:25)
[2021-06-26 12:39] LABS: Glucose,Whole Blood 98 mg/dL (75-99)
[2021-06-26] MEDS: NOREPINEPHRINE 8 MG in SODIUM CHLORIDE 0.9% 250 ML IV SCH (14:17)
--- NOTE | 2021-06-26 16:21 | P.PN ---
Subjective Progress Note Date: 06/26/21 This is a 75-year-old male who was recently admitted with COVID-19 infection with acute hypoxic respiratory failure and is being closely monitored. Pulmonary following closely and patient is maintained on dexamethasone along with Lovenox and vitamin and zinc supplements. Patient currently maintained on 15 L high flow via nasal cannula with supplemental use of 15 L nonrebreather. Patient states his breathing is slightly improved and not requiring a nonrebreather as often. Instructed the patient to use incentive spirometer and increase activity as tolerated. Patient continues to be extremely weak and will have PT/OT evaluate the patient once more stable. 06/06/2021 Patient is seen in follow-up this morning states his shortness of breath has slightly worsened and his recovery time and working to breathe has become more difficult. Patient is continued on 15 L high flow along with nonrebreather intermittently and having to use it more frequently today he states. Incentive spirometer at the bedside and instructed the patient to continue to use at least 10 times every hour while awake and encouraged increased activity as tolerated. Patient states he walked to the bathroom with assistance and became extremely dyspneic. Patient is afebrile. D-dimer is 4.72 with a WBC of 16 and hemoglobin is stable at 15.4. Sodium is 138 with a potassium of 4.5 and current creatinine is 0.63. LDH is elevated at 2492 and CRP is 6.5. Chest x-ray today shows findings consistent with COVID-19 pneumonia with bilateral interstitial and airspace disease present. 06/07/2021 Patient is seen and evaluated in follow up this morning and is having increasing shortness of breath and on 15L high flow via NC and 15 L non-rebreather. Patient has been back in bed and attempting position changes frequently along with prone position. Patient continues on lovenox, baracitinib, vitamin and zinc supplement s,and steroids. Pulmonary following closely. 06/10/2021 Patient is seen in follow up this morning and is now maintained on airvo at 60% and continues to be extremely dyspneic with minimal exertion. Patient also continues with 15L Non rebreather as needed. Patient is maintained on lovenox along with baricitinib and IV steroids with pulmonary following. Patient states he has no reserve and taking longer periods of time to recover with attempting to position change or use the urinal. 06/11/2021 Patient is seen in follow-up and evaluated this morning and is continued on Airvo and maintaining oxygen saturations in the low 90s. Pulmonary following closely. Patient is afebrile. Patient is continued on vitamin and zinc supplements along with Baricitinib and subcutaneous Lovenox along with IV steroids and will continue. Patient's d-dimer today is elevated at 18.25 and will increase Lovenox to 50 subcu twice daily. White blood count today is 18.6 and hemoglobin is stable at 13.7, sodium is 139 with a potassium of 4.3 current creatinine is 0.7. Inflammatory markers are elevated with some trending down and CRP is 1.5, LDH is 1968 and alk phos is 168. Patient is afebrile. Patient continues to be extremely anxious and will continue Xanax as needed. Encouraged increase activity as tolerated and continued position changes with incentive spirometer use. 06/12/2021 Patient is seen in follow-up this morning with no acute issues noted overnight. Patient continues on Airvo with a flow rate of 55 and FiO2 of 80% maintaining oxygen saturations above 90%. Pulmonary following closely and we'll continue to wean as tolerated. Patient continues on Lovenox twice daily along with vitamin and zinc supplements and continued on IV steroids along with albuterol and Baricitinib. White blood count is 23.7 with a hemoglobin of 14.1, sodium is 139 with a potassium of 4.4 and current creatinine is 0.62. Will repeat chest x-ray along with inflammatory markers in the morning. 06/13/2021 Patient is seen and evaluated in follow-up as morning and continues to be on Airvo. Patient appears to be more raspy with some sputum and congested today with a hoarse voice. Infectious disease and pulmonary following closely. Sputum culture from 06/02 just today preliminary showing gram-negative bacilli along with Essence albicans and patient is being started on IV cefepime with repeat sputum culture ordered along with oral Diflucan. White blood count is 23.5 with hemoglobin of 13.8, sodium is 137 and potassium is 5.5 and current creatinine is 0.55. LFTs are mildly elevated. Repeat d-dimer along with CRP and LDH have been ordered. Will repeat a.m. labs. Chest x-ray today shows con tinued peripheral and lower lung interstitial infiltrates of Covid pneumonia without significant change. 06/14/2021 Patient is seen and evaluated in follow-up this morning continues to be dyspneic and requesting to go to the bed as he has been sitting up in the chair all day. Patient has been started on Diflucan along with IV cefepime and sputum culture from 06/02/2021 resulted showing Pseudomonas aeruginosa along with Essence albicans. Infectious disease is following closely. Patient is completing Baricitinib and will be transitioned to oral prednisone taper with pulmonary following closely. Patient has been started on eliquis. D-dimer today has trended down to 11.02, LDH is 2178, CRP is 3.2, liver functions trending down. White blood count slightly trending down at 20.2 and hemoglobin is stable at 13.7, sodium is 136 with a potassium of 4.3 and current creatinine is 0.57. Continues to have a mildly raspy voice with some throat dryness and will add Cepacol. 06/15/2021 Patient evaluated in bed and is resting on the BiPAP in the intensive care unit, he had desaturated this morning will be moved to the bathroom and initially was on a 15L HF, however is now requiring BiPAP. Patient was started on a Precedex drip. Repeat chest x-ray today which revealed persistent multifocal and confluent bilateral reticulonodular opacities is consistent with known coronary infection more prominent in the lower lungs. Patient finished a course of therapy with Baricitinib and transitioned to oral prednisone. Labs reviewed today include a white blood cell count 21.2, hemoglobin of 12.5. Blood gases show a pO2 of 32 and O2 saturation of 50.3. Chloride is 110, CO2 20, sodium 137, potassium 4. LDH is worse today at 2277, alk phos 158, CRP is trending upwards of 4.6. Patient has remained afebrile, heart rate is now 83, respirations 32, blood pressure 124/68. Oxygen saturation is maintaining in the mid to high 80s on 100% BiPAP. Patient is nothing by mouth and oral medications are unable to be given. Patient is on IV cefepime for a sputum culture positive for Pseudomonas. He is IV Diflucan for oral candidiasis that was improving as of yesterday. 06/16/2021 Patient is evaluated in the intensive care unit, he is status post intubation and has NG tube in place. Labs reviewed today included white blood cell, 44.2, d-dimer greater than 34. ABGs from the A-line included a pH of 7.15, pCO2 of 71, total CO2 is 27 and oxygen saturation of 98. Bicarb is 25 and his pO2 is 107. Additional labs include a serum potassium 5.1, chloride of 109, BUN of 27, creatinine 1.06. Vital signs include a heart rate of 123 tachycardia, respiratory rate of 36, blood pressure 100/50, he is 98% oxygen saturation. Patient is on vasopressors for his blood pressure. Repeat blood cultures are negative. Patient is receiving propofol for sedation. His chest x-ray was reviewed which is showing bilateral pulmonary infiltrates demonstrating COVID- 19 pneumonia with ARDS. Patient is still getting IV cefepime for a sputum culture Pseudomonas although his pro calcitonin level is 0.03 which is not usually indicative of a bacterial infection. Additional inflammatory markers remain elevated. Patient did receive 2 L saline bolus. Repeat labs in the morning, prognosis is guarded for this patient. 06/17/2021 Patient is seen in follow-up continues to be monitored closely in the ICU with multiple medical consultations following. Prognosis is extremely guarded. Patient's respiratory status significantly worsened requiring mechanical ventilation and intubation and currently patient is sedated. White blood count is worsened at 26.1 and hemoglobin is 12.2, d-dimer is 27.06, ABG is 7.16 pH with a pCO2 of 57 and a pO2 of 68 and bicarb is 20, sodium is 140 with a potassium of 5.0 and current creatinine has worsened at 2.29 pro calcitonin is 24.40. Infectious disease along with pulmonary frame stripper and crusher following closely. Patient continues on cefepime along with eliquis, vitamin and zinc supplements and patient has finished Baricitinib. Patient was on oral Decadron and is being transitioned back to IV dexamethasone along with Diflucan. Patient was given a dose of IV Lasix and nephrology has been consulted. Cardiology consulted as well and patient is currently on amiodarone drip along with Cleviprex and currently sedated on propofol. Patient also has norepinephrine drip as well. Patient being started on sodium bicarb drip. Patient also has low-grade fevers. 06/18/2021 Patient is seen in follow up in the ICU and maintained on mechanical vent intubated and sedated. Patient continues on NImbex, sodium bicarb, amiodarone, and being started on fentanyl as IV lasix drip with multiple medical consultations following. Kidney functions continue to deteriorate with nephrology following closely. Discussion being had about possible hemodialysis if kidney functions continue to worsen. Creatinine currently 3.69 today. 06/19/2021 Patient remains on mechanical vent with minimal urine output note and extensive volume overload with worsening kidney functions and would like to proceed with hemodialysis catheter placement with nephrology following closely. Multiple consultations following and Dr. Mann consulted for hemodialysis catheter placement and will hold eliquis. Amiodarone being transitioned to oral with cardiology following closely. Continue close monitoring in the ICU. Overall Prognosis remains extremely poor and guarded. 06/20/2021 Patient is seen and evaluated in follow-up continue to be closely monitored with multiple medical consultations following in the ICU. Patient remains intubated on mechanical ventilation and sedated. Kidney functions continue to worsen and patient is an extensive volume overload and has received dialysis catheter today and will initiate hemodialysis. Patient was maintained on IV Lasix drip which is being transitioned to IV push Lasix twice daily with nephrology following closely. Patient also continues on IV cefepime along with dexamethasone, vitamin and zinc supplements and continues on eliquis as well. White blood count 11.9 and hemoglobin is 9.6, platelets are 61 and d-dimer is 8.40. Sodium is 135 with a potassium of 5.0 and current BUN is 99 with a creatinine of 5.23. LDH is 1015 and pro calcitonin is 13.10. Prognosis remains extremely guarded. 06/21/2021 Patient is evaluated in follow up this morning and continues to be monitored closely in the ICU. On mechanical vent with an FI02 of 50%. Currently receiving hemodialysis and will likely require daily treatments if tolerated for extensive overload. Patient continues on IV lasix twice daily along with Nimbex, propofol, and fentanyl. Chest xray done today. Patient continues on IV cefepime with most recent repeat sputum culture revealing no growth. Infectious disease following closely. 06/22/2021 Patient remains intubated in the ICU, on ventilatory before meals settings, tidal volume 450, 50% FiO2, PEEP of 16, saturating 80%. ABG showing pO2 66, pCO2 42, pH 7.32, he was dialyzed for 2-1/2 L removed., He is making urine He remains sedated with propofol and he is paralyzed with Nimbex. His sputum is growing pseudomonas receiving antimicrobial therapy of cefepime, ID is following. No fever this morning, blood pressure 09/26/1939/50. Chest x-ray showing extensive bilateral airspace disease, correlate for pneumonia or ARDS. In atrial fibrillation with controlled ventricular rate 06/23/2021 Patient remains intubated on ventilatory support in the ICU, currently on assist control, 55% FiO2, PEEP of 14, TG 450. ABG this morning showing pH 7.31, pCO2 43, pO2 54, bicarb 22. O2 saturations marginal 90-91%, blood pressure stable. He remains in atrial fibrillation, with controlled ventricular rate, antic oagulated with Eliquis. Labs today show sodium 135, creatinine 4.18, WBC 12.7, hemoglobin 8.3 platelets 40. He is on IV Lasix, low urine output 270 ml yesterday Continue systemic steroids of Decadron 6 daily, eyes receiving antimicrobial therapy with cefepime, and fluconazole. sedated with fentanyl. 06/24/2021 Patient is seen and evaluated continues to be closely monitored in the ICU. Patient is currently receiving hemodialysis with an attempt of 2 L removal as the goal is 3 although patient's blood pressure is not tolerating. Nephrology and pulmonary frame stripper and crusher following closely. General surgery has been consulted for possible PEG and trach tube placement. Patient continues on Cleviprex along with fentanyl and propofol, IV dexamethasone, vitamin and zinc supplements, scheduled Reglan and IV cefepime. No reported bowel movements and patient not tolerating tube feeds with a large amount of residual noted in the NG. Chest x- ray today shows interval development of pneumomediastinum is suspected with arts and progression of subcutaneous emphysema. 06/25/2021 Patient is seen this morning in follow-up continues to be closely monitored in the ICU with multiple medical consultations following. Patient did not receive hemodialysis today and plan is scheduled for tomorrow with nephrology following closely. Eliquis remains on hold as general surgery plans for tracheostomy and PEG tube placement tomorrow. Patient continues to have no bowel movement and have ordered fleets enema and will continue with bowel regimen. Chest x-ray today shows continued extensive overlying subcutaneous emphysema with pneumomediastinum and bilateral compliant reticulonodular opacities related to COVID-19 infection again noted with no significant change from previous. Patient is maintained on IV cefepime along with Cleviprex, IV dexamethasone, fentanyl and propofol, scheduled Reglan and is also being started on sodium bicarb. 06/26/2021 Patient is seen and evaluated this morning continues to be on mechanical vent and intubated and sedated being closely monitored in the ICU. Multiple medical consultations following including general surgery and plan is for tracheostomy and PEG tube placement today. Eliquis has been on hold along with tube feeds and will discuss with surgery about initiating tube feeds and resuming anticoagulant. Per nursing staff patient had small amount of blood noted at the NG tube along with patient having a bowel movement with blood noted and hemoglo bin today is 7.9, platelets are 66. Patient also continues on IV cefepime along with IV dexamethasone, vitamin and zinc supplements and will continue. Patient maintained on Cleviprex along with fentanyl and propofol. Patient is scheduled to receive dialysis today with nephrology following closely. Chest x-ray today personally reviewed by me shows possible interval development of right-sided pn eumothorax although pneumothorax evaluation is limited due to extensive subcutaneous emphysema present bilaterally along with worsening right lower lobe consolidation, diffuse bilateral infiltrates. Pulmonary frame stripper and crusher is following closely. Labs: Sodium is 134, potassium is 5.2, BUN 83, creatinine is 5.26, WBC 8.4, hemoglobin is 7.9, platelets 66 Review of systems: Unable to complete a full review of symptoms as patient is sedated and on a ventilator. Active Medications Acetaminophen (Acetaminophen Tab 325 Mg Tab) 650 mg PO Q6HR PRN PRN Reason: Fever and/ or Mild Pain Last Admin: 06/14/21 22:22 Dose: 650 mg Documented by: Albuterol Sulfate (Albuterol Hfa Inhaler) 2 puff INHALATION RT-QID [facility] Last Admin: 06/26/21 15:38 Dose: 2 puff Documented by: Albuterol Sulfate (Albuterol Hfa Inhaler) 2 puff INHALATION RT-QID PRN PRN Reason: Shortness Of Breath Or Wheezing Last Admin: 06/15/21 03:30 Dose: 2 puff Documented by: Amiodarone HCl (Amiodarone 200 Mg Tab) 200 mg PO BID [facility] Last Admin: 06/26/21 08:22 Dose: 200 mg Documented by: Artificial Tears (Artificial Tears-Hypromellose Drops 15 Ml Btl) 2 drops BOTH EYES Q4HR [facility] Last Admin: 06/26/21 15:57 Dose: 2 drops Documented by: Ascorbic Acid (Ascorbic Acid 500 Mg Tab) 500 mg PO DAILY [facility] Last Admin: 06/26/21 09:38 Dose: Not Given Documented by: Benzocaine/Menthol (Benzocaine/Menthol Lozeng 1 Each Lozenge) 1 each MUCOUS MEM Q4HR PRN PRN Reason: Sore Throat Bisacodyl (Bisacodyl 10 Mg Supp) 10 mg RECTAL DAILY [facility] Last Admin: 06/26/21 10:06 Dose: 10 mg Documented by: Calcium Acetate (Calcium Acetate 667 Mg Tab) 667 mg PO TID-W/MEALS [facility] Last Admin: 06/26/21 15:57 Dose: Not Given Documented by: Chlorhexidine Gluconate (Chlorhexidine Gluconate 15 Ml Cup) 15 ml MUCOUS MEM BID [facility] Last Admin: 06/26/21 08:22 Dose: 15 ml Documented by: Cholecalciferol (Cholecalciferol 25 Mcg (1000 Iu) Tablet) 25 mcg PO DAILY [facility] Last Admin: 06/26/21 09:38 Dose: Not Given Documented by: Cyanocobalamin (Cyanocobalamin 500 Mcg Tab) 1,000 mcg PO DAILY [facility] Last Admin: 06/26/21 09:38 Dose: Not Given Documented by: Dexamethasone Sodium Phosphate (Dexamethasone Sod Phosphate 10 Mg/Ml 1 Ml Vial) 6 mg IV DAILY [facility] Last Admin: 06/26/21 08:22 Dose: 6 mg Documented by: Fluconazole (Fluconazole 100 Mg Tab) 100 mg PO DAILY [facility] Last Admin: 06/26/21 08:24 Dose: 100 mg Documented by: Propofol 1,000 mg/ IV Solution 100 mls @ 0 mls/hr IV .Q0M [facility]; Protocol Last Admin: 06/26/21 10:00 Dose: 50 mcg/kg/min, 36.36 mls/hr Documented by: Norepinephrine Bitartrate 8 mg (/ Sodium Chloride) 258 mls @ 9.482 mls/hr IV .Q24H [facility]; Protocol Last Admin: 06/26/21 14:17 Dose: Not Given Documented by: Cisatracurium Besylate 200 mg/ (Sodium Chloride) 200 mls @ 5.88 mls/hr IV .Q24H [facility]; Protocol Last Admin: 06/26/21 12:55 Dose: 3 mcg/kg/min, 17.64 mls/hr Documented by: Fentanyl Citrate 1,000 mcg/ (Sodium Chloride) 100 mls @ 2.765 mls/hr IV .Q24H [facility]; Protocol Last Admin: 06/26/21 04:03 Dose: 0.6 mcg/kg/hr, 6.636 mls/hr Documented by: Cefepime HCl 1 gm/ Sodium (Chloride) 50 mls @ 12.5 mls/hr IVPB HS [facility] Last Admin: 06/25/21 20:44 Dose: 12.5 mls/hr Documented by: Metoclopramide HCl (Metoclopramide 5 Mg/Ml 2 Ml Vial) 5 mg IVP Q8H [facility] Last Admin: 06/26/21 12:51 Dose: 5 mg Documented by: Metoprolol Tartrate (Metoprolol Tartrate 25 Mg Tab) 25 mg PO DAILY [facility] Last Admin: 06/26/21 08:22 Dose: 25 mg Documented by: Pantoprazole Sodium (Pantoprazole 40 Mg/10 Ml Vial) 40 mg IVP BID [facility] Last Admin: 06/26/21 08:22 Dose: 40 mg Documented by: Senna/Docusate Sodium (Sennosides-Docusate Sodium 1 Each Tab) 1 each PO DAILY [facility] Last Admin: 06/26/21 09:39 Dose: Not Given Documented by: Sodium Bicarbonate (Sodium Bicarbonate Tab 650 Mg Tab) 650 mg PO TID [facility] Last Admin: 06/26/21 15:56 Dose: Not Given Documented by: Zinc Sulfate (Zinc Sulfate 220 Mg Cap) 220 mg PO DAILY [facility] Last Admin: 06/26/21 09:39 Dose: Not Given Documented by: Physical exam: Gen: This is a 75-year-old male sedated and intubated on propofol and mechanical ventilation. Temp is 96.3, pulse is 66, resp are 36, blood pressure is 134/54 arterial, and pulse ox is 95% on mechanical vent with an FI02 of 50% PEEP of 14 HEENT: Head is atraumatic, normocephalic. Pupils equal, round. Sclerae is anicteric. NECK: Supple. No JVD. No lymphadenopathy. No thyromegaly. LUNGS: Diminished breath sounds bilaterally with scattered coarse rhonchi and crackles noted at the bases. Extensive subcutaneous emphysema persists HEART: Irregular S1, S2 are muffled ABDOMEN: Soft. Edematous. obese. Hypoactive Bowel sounds are present. No masses. No guarding or rigidity noted. EXTREMITIES: Extensive pitting edema noted of upper and lower bilateral extremities and much of the body. NEUROLOGICAL: Patient is intubated and sedated Assessment: Acute COVID-19 infection with acute component of interstitial pneumonia, bilateral, possibly ARDS with acute hypoxic respiratory failure and possible sepsis secondary to COVID-19 Status post mechanical ventilation and intubation after failed BIPAP on 06/15/2021 secondary to above Subcutaneous emphysema Possible developing new pneumomediastinum as noted on x-ray acute renal failure likely ATN with worsening kidney functions and minimal urine output requiring hemodialysis volume overload secondary to ARF metabolic acidosis afib with RVR currently rate controlled on oral amiodarone and metoprolol Lactic acidosis secondary to above Initial sputum culture showing Essence albicans and pseudomonas aeruginosa and maintained on IV cefepime repeat sputum culture showing aspergillus not fumigatus Oral candidiasis started on Diflucan, sputum cultures from 06/02/2021 Essence albicans Extensive interstitial bilateral COVID-19 pneumonia Elevated white blood count possibly secondary to above Possible subsegmental pulmonary embolism ruled out History of atrial fibrillation Anxiety Remote history of nicotine dependence GI prophylaxis: Protonix DVT prophylaxis: On eliquis is currently on hold for PEG and trach placement tomorrow Full code Plan: Recommend to continue with current medications and continue to closely monitor in the ICU. Patient remains on mechanical ventilation and intubated. Patient scheduled to receive PEG tube and tracheostomy placement today with surgery. Tube feeds and anticoagulant on hold for the surgery. Patient continues on IV cefepime with ID following closely as well. White blood count trending down. repeat sputum culture showing aspergillus not fumigatus. To discuss with surgery about when to resume tube feeds. Patient did have a small bowel movement noted with some blood in the stool per nursing staff. Patient continues on vitamin and zinc supplements IV dexamethasone and will continue. Patient has completed Baricitinib. Patient with extensive volume overload and has been receiving hemodialysis with nephrology following closely. Plans for hemodialysis today. Plan is for possible Thursday/Thursday/Thursday hemodialysis to be continued. Prognosis is extremely guarded and will continue to monitor closely. Repeat labs and cxr in the am. Objective - Vital Signs Vital signs: Vital Signs Temp 97.5 F L 06/26/21 04:00 Pulse 93 06/26/21 07:00 Resp 36 H 06/26/21 07:00 BP 159/72 06/25/21 10:00 Pulse Ox 96 06/26/21 07:00 Intake & Output 06/25/21 06/26/21 06/26/21 18:59 06:59 18:59 Intake Total 968.958 994.893 23 Output Total 510 30 0 Balance 458.958 964.893 23 Weight 125.1 kg Intake: IV 299 353 23 0.9 260 220 20 Cefepime 2 gm In Sodium 100 Chloride 0.9% 100 ml @ 25 mls/hr IVPB Q8HR [facility] Rx# :[id number] Pressure bag 39 33 3 Intake, IV Titration 624.958 536.893 Amount Cisatracurium 200 mg In 212.660 158.172 Sodium Chloride 0.9% 180 ml @ 1 MCG/KG/MIN 5.88 mls/hr IV .Q24H [facility] Rx#: [id number] fentaNYL (PF). 1,000 mcg 81.402 89.033 In Sodium Chloride 0.9% 80 ml @ 0.25 MCG/KG/HR 2. 765 mls/hr IV .Q24H [facility] Rx#:[id number] propofoL 1,000 mg In 330.896 289.688 Empty Bag 1 bag @ Titrate IV .Q0M [facility] Rx#: [id number] Tube Feeding 45 75 Other 30 Output: Gastric Drainage 500 Urine 10 30 0 Other: Voiding Method Indwelling Catheter Indwelling Catheter ABP, PAP, CO, CI - Last Documented Arterial Blood Pressure 161/70 - Labs CBC & Chem 7: 06/26/21 04:00 06/26/21 04:00 Labs: Abnormal Lab Results - Last 24 Hours (Table) 06/24/21 06/25/21 06/25/21 Range/Units 03:35 08:46 17:57 RBC 2.58 L (4.30-5.90) m/uL Hgb 7.7 L (13.0-17.5) gm/dL Hct 23.4 L (39.0-53.0) % Plt Count 50 L (150-450) k/uL Neutrophils # 8.3 H (1.3-7.7) k/uL Lymphocytes # 0.6 L (1.0-4.8) k/uL ABG pH (7.35-7.45) ABG pO2 (83-108) mmHg ABG HCO3 (21-25) mmol/L ABG O2 Saturation (94-97) % Sodium (137-145) mmol/L Potassium (3.5-5.1) mmol/L Carbon Dioxide (22-30) mmol/L BUN (9-20) mg/dL Creatinine (0.66-1.25) mg/dL POC Glucose (mg/dL) 104 H (75-99) mg/dL Calcium (8.4-10.2) mg/dL Procalcitonin 3.90 H (0.02-0.09) ng/mL 06/26/21 06/26/21 06/26/21 Range/Units 04:00 04:00 04:55 RBC 2.62 L (4.30-5.90) m/uL Hgb 7.9 L (13.0-17.5) gm/dL Hct 23.0 L (39.0-53.0) % Plt Count 66 L (150-450) k/uL Neutrophils # (1.3-7.7) k/uL Lymphocytes # 0.3 L (1.0-4.8) k/uL ABG pH 7.29 L (7.35-7.45) ABG pO2 69 L (83-108) mmHg ABG HCO3 18 L (21-25) mmol/L ABG O2 Saturation 91.9 L (94-97) % Sodium 134 L (137-145) mmol/L Potassium 5.2 H (3.5-5.1) mmol/L Carbon Dioxide 16 L (22-30) mmol/L BUN 83 H (9-20) mg/dL Creatinine 5.26 H (0.66-1.25) mg/dL POC Glucose (mg/dL) (75-99) mg/dL Calcium 8.2 L (8.4-10.2) mg/dL Procalcitonin (0.02-0.09) ng/mL
--- NOTE | 2021-06-26 17:25 | P.OP ---
Date of Procedure: 06/26/21 Preoperative Diagnosis: Malnutrition Respiratory failure Postoperative Diagnosis: Malnutrition Respiratory failure Procedure(s) Performed: Tracheostomy tube EGD Anesthesia: MAC Surgeon: Jimi Padilla Estimated Blood Loss (ml): 5 Pathology: none sent Condition: stable Disposition: PACU Description of Procedure: The patient's placed on the bed in supine position. He received general endotracheal tube anesthesia. His neck was prepped and draped usual sterile fashion. Standard [place] incision was made. Then using cautery platysma divided. We liver retractors placed a wound the wound was spread. The strap muscles and then divided in the midline. The thyroid was exposed. The thyroid was divided midline using left cautery. The trachea was exposed. At this point the [employer] placed the endotracheal tube in the right mainstem bronchus. Patient's family. The patient was then disconnected from the belly. The tracheotomy was performed between the second third tracheal rings. Under direct vision the endotracheal tube brought back. Then a #8b[place] adjustable cuff tracheostomy tube was placed into the trachea. Patient was ventilated. Patient had adequate ventilation. The skin was closed with 3-0 nylon suture. The tracheostomy tie was secured. Patient tolerated the procedure well. Next the gastroscope placed oropharynx past esophagus and stomach. A suitable light reflux cannot be seen on the anterior abdominal wall due to the thickness of the patient's abdominal wall. At this point the PEG tube could not be placed due to non-visualization of the light reflex to the stomach. The scope was then withdrawn.
[2021-06-26 18:09] LABS: Glucose,Whole Blood 95 mg/dL (75-99)
--- NOTE | 2021-06-26 21:52 | XR ---
EXAMINATION TYPE: XR chest 1V portable DATE OF EXAM: 06/26/2021 COMPARISON: Today HISTORY: Check tube placement TECHNIQUE: Single view FINDINGS: There is tracheostomy tube. The tube is 3 cm from the evette. There is extensive soft tissu e air on the chest wall bilaterally. There is nasogastric tube and the tip is below the diaphragm pro bably in the stomach. There is left subclavian catheter with tip in the superior vena cava. No sign o f a pneumothorax. There is some pulmonary interstitial and airspace edema. IMPRESSION: Extensive soft tissue air unchanged. Pulmonary interstitial and airspace edema is the guilherme e or slightly improved compared to exam this morning.
[2021-06-26] MEDS: CEFEPIME 1 GM in SODIUM CHLORIDE 0.9% 50 ML IVPB SCH (22:06)
[2021-06-27 00:24] LABS: Glucose,Whole Blood 83 mg/dL (75-99)
[2021-06-27] MEDS: ARTIFICIAL TEARS-HYPROMELLOSE DROPS 15 ML BTL BOTH EYES SCH ×7 (01:05→23:38)
[2021-06-27] MEDS: METOCLOPRAMIDE 5 MG/ML 2 ML VIAL IVP SCH ×3 (04:21→20:40)
[2021-06-27 04:44] LABS: Basophils % (A) 0 %; Eosinophils # (A) 0.1 k/uL (0-0.7); Eosinophils % (A) 2 %; HCT 22.1 % (39.0-53.0); HGB 7.4 gm/dL (13.0-17.5); Lymphocytes # (A) 0.4 k/uL (1.0-4.8); Lymphocytes % (A) 5 %; MCH 29.5 pg (25.0-35.0); MCHC 33.4 g/dL (31.0-37.0); MCV 88.4 fL (80.0-100.0); Mean Platelet Volume 12.2; Monocytes # (A) 0.3 k/uL (0-1.0); Monocytes % (A) 5 %; Neutrophils # (A) 5.6 k/uL (1.3-7.7); Neutrophils % (A) 87 %; RDW 15.9 % (11.5-15.5); WBC 6.5 k/uL (3.8-10.6)
[2021-06-27 04:56] LABS: Platelet Count 96 k/uL (150-450)
[2021-06-27 05:03] LABS: Albumin 2.1 g/dL (3.5-5.0); Calcium 7.9 mg/dL (8.4-10.2); Potassium 4.4 mmol/L (3.5-5.1); Total Bilirubin 0.6 mg/dL (0.2-1.3); Total Protein 4.7 g/dL (6.3-8.2)
[2021-06-27 05:36] LABS: ABG Base Excess -6.4 mmol/L; ABG HCO3 20 mmol/L (21-25); ABG Oxygen Saturation 94.6 % (94-97); ABG PCO2 39 mmHg (35-45); ABG PH 7.32 (7.35-7.45); ABG PO2 76 mmHg (83-108); ABG TCO2 21 mmol/L (19-24); Allen Test Performed? Yes
--- NOTE | 2021-06-27 06:34 | PN ---
PROGRESS NOTE DATE OF SERVICE: 06/26/2021. REASON FOR FOLLOWUP: Pneumonia. INTERVAL HISTORY: The patient are afebrile. The patient is status post tracheostomy this morning. The patient tolerated the procedure. The patient did have some emphysema. No worsening per the nursing staff. PEG tube no diarrhea has been reported. PHYSICAL EXAMINATION: Blood pressure 138/60 with a pulse of 79, temperature 97.9. He is 96% on 70% FiO2. General description is an elderly male lying in bed in no distress. Respiratory system: Unlabored breathing, decreased breath sounds in the base. No wheeze. Heart S1, S2. Regular rate and rhythm. Abdomen soft, no tenderness. LABS: Hemoglobin 7.1, white count 8.4, creatinine 5.26. DIAGNOSTIC IMPRESSION AND PLAN: 1. Patient with acute respiratory failure which is multifactorial in this patient who did have a COVID-19 pneumonia. Clinical course complicated by respiratory failure requiring intubation. Failed to be extubated status post trach. Sputum was also positive for Pseudomonas with cefepime. 2. Positive sputum culture with possible colonization as patient not showing any worsening of his respiratory status and we will monitor closely. MMODL / IJN: [id number] /
--- NOTE | 2021-06-27 06:48 | XR ---
EXAMINATION TYPE: XR chest 1V portable DATE OF EXAM: 06/27/2021 CLINICAL HISTORY: Difficulty breathing progress study. TECHNIQUE: Single AP portable semiupright view of the chest is obtained. COMPARISON: Chest x-ray from one day earlier and older studies FINDINGS: Stable tracheostomy tube and orogastric tubes. Stable left subclavian central venous lorin ter. Extensive overlying subcutaneous emphysema redemonstrated. Bilateral diffuse reticulonodular opacitie s redemonstrated. Cardiac silhouette size is stable and mildly enlarged. Osseous structures are intac t. Pneumomediastinum redemonstrated. IMPRESSION: Extensive overlying subcutaneous emphysema with pneumomediastinum and bilateral confluent reticulonodular opacities related to covid-19 infection all redemonstrated. No significant change fr om one day earlier.
[2021-06-27] MEDS: CALCIUM ACETATE 667 MG TAB PO SCH ×3 (06:54→16:26)
[2021-06-27] MEDS: ALBUTEROL HFA INHALER INHALATION SCH ×4 (07:13→21:16)
[2021-06-27] MEDS: fentaNYL (PF). 1,000 MCG in SODIUM CHLORIDE 0.9% 80 ML IV SCH ×2 (08:24→22:02)
[2021-06-27] MEDS: PANTOPRAZOLE 40 MG/10 ML VIAL IVP SCH ×2 (08:35→20:40)
[2021-06-27] MEDS: CHLORHEXIDINE GLUCONATE 15 ML CUP MUCOUS MEM SCH ×2 (08:35→20:40)
[2021-06-27] MEDS: CHOLECALCIFEROL 25 MCG (1000 IU) TABLET PO SCH (08:35)
[2021-06-27] MEDS: bisacodyL 10 MG SUPP RECTAL SCH (08:35)
[2021-06-27] MEDS: METOPROLOL TARTRATE 25 MG TAB PO SCH (08:35)
[2021-06-27] MEDS: DEXAMETHASONE SOD PHOSPHATE 10 MG/ML 1 ML VIAL IV SCH (08:35)
[2021-06-27] MEDS: AMIODARONE 200 MG TAB PO SCH ×2 (08:36→20:40)
[2021-06-27] MEDS: SODIUM BICARBONATE TAB 650 MG TAB PO SCH ×3 (08:36→20:57)
[2021-06-27] MEDS: CYANOCOBALAMIN 500 MCG TAB PO SCH (08:36)
[2021-06-27] MEDS: FLUCONAZOLE 100 MG TAB PO SCH (08:36)
[2021-06-27] MEDS: ZINC SULFATE 220 MG CAP PO SCH (08:36)
[2021-06-27] MEDS: ASCORBIC ACID 500 MG TAB PO SCH (08:36)
[2021-06-27] MEDS: SENNOSIDES-DOCUSATE SODIUM 1 EACH TAB PO SCH (08:36)
--- NOTE | 2021-06-27 09:21 | P.PN ---
Subjective Progress Note Date: 06/27/21 Principal diagnosis: COVID-19 pneumonia The patient is seen today 06/19/2021 in follow-up in the intensive care unit. He remains intubated and on the mechanical ventilator. Current settings are assist-control rate of 36, tidal volume 430, FiO2 50% and a PEEP of 14. Morning blood gases revealed a pO2 of 60, pCO2 of 51, pH 7.27. He remains sedated on propofol at 50 mcg/kg/m, paralyzed with Nimbex at 1.5 mcg/kg/m. He is on fentanyl at 0.5 mcg/kg/hr. Amiodarone drip at 0.5 mg/m. Lasix drip at 10 mg per hour. D5W with 3 A of sodium bicarbonate 150 MLS per hour. Remains on cefepime and Diflucan. Anticoagulated with Eliquis. He remains on Decadron 6 mg IV daily. Vitamin supplements. Chest x-ray continues to show few scattered lung infiltrates. Stable compared to previous. Left central line in place. Endotracheal tube and gastric tubes in good position. Sputum culture from 06/02/2021 was positive for pseudomonas aeruginosa and Essence. Follow up cultures reveal no growth. Blood cultures reveal no growth. White count 16.0. Hemoglobin 10.4. Platelet count 71,000. Lymphocytes 0.4. D-dimer 10.4 seconds. Sodium 135. Potassium 4.4. Bicarb 22. BUN 75. Creatinine 4.63. LDH 1095. Blood glucose 151. The patient is seen today 06/20/2021, the intensive care unit. He remains intubated and on mechanical ventilator. Current mode of assist control with a respiratory rate of 36, tidal volume 450, FiO2 55% and a PEEP of 16. Morning blood gases on 60% FiO2 revealed a PaO2 of 77, pCO2 45, pH 7.29. Peak airway pressures 38, plateau pressure 36. He remains on fentanyl at 0.5 mcg/kg per hour, Lasix drip at 10 mg per hour, propofol at 50 mcg/g/m, Nimbex at 2mcg/kg/min. 0.9 normal saline at 10 MLS per hour. He remains on cefepime and Diflucan. He is currently in atrial fibrillation with controlled ventricular rate. Chest x-ray continues to show diffuse bilateral interstitial airspace disease. More focal left basilar consolidation also persists. Small left pleural effusion. No appreciable pneumothorax. Increasing subcutaneous emphys ingris at the base of the left neck and along the chest bilaterally. Follow-up sputum culture revealed no growth. Blood cultures reveal no growth. White count 11.9. Hemoglobin 9.6. Platelet count 61,000. Lymphocytes 0.4. D-dimer 8.4. Sodium 135. Potassium 5.0. Bicarb 21. Creatinine 5.23. BUN 99. Glucose 115. LDH 1015. He is continued on Decadron, and Eliquis, vitamin supplements. He is to receive a hemodialysis catheter today. Tube feedings currently on hold due to high residuals. Patient seen today 06/21/2021 in follow-up in the intensive care unit. He remains intubated and on mechanical ventilator. Current settings assist-control mode, respiratory rate 36, tidal volume 450, FiO2 50% and a PEEP of 16. Morning blood gases reveal a pO2 of 66, pCO2 42, pH 7.32. Chest x-ray continues to show bilateral patchy opacities along with subcutaneous emphysema which is a bit worse. 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 No clear evidence of pneumothorax. He did receive hemodialysis yesterday with 1 L removed. Plan is for hemodialysis again today. He remains in atrial fibrillation. Anticoagulated with Eliquis. Remains on antibiotics in the form of cefepime. He is also sedated on propofol 50 mcg/kg/m, paralyzed and Nimbex at 2 mcg/kg/m, fentanyl 5 mcg/mg/h. Initial sputum culture was positive for Pseudomonas and Essence. Follow-up sputum culture reveals no growth. Culture reveals no growth. White count 10.5. Hemoglobin 9.6. Platelet count 49,000. D-dimer 8.41. Sodium 134. Potassium 5.0. BUN 91. Creatinine 5.06. Glucose 94. LDH 842. C-reactive protein 3.8. Remains on Decadron. IV diuretics. Vitamin supplements. The patient is seen today 06/25/2021 in follow-up in the intensive care unit. He remains intubated, sedated, paralyzed. Currently in assist-control mode at a rate of 36, tidal volume 450, FiO2 50% and a PEEP of 14. Morning blood gases reveal pO2 of 62, pCO2 37, pH 7.33. He has 0.9 normal saline at 20 ML's per hour. Propofol 50 mcg/kg/m. Nimbex at 3 mcg/kg/m. Fentanyl 0.6 mcg/kg/hr. Vital AF at 15 ML's per hour. Chest x-ray continues to show extensive overlying subcutaneous emphysema with pneumomediastinum and bilateral confluent reticulonodular opacities secondary to COVID-19 infection. No significant change compared to yesterday. Sputum culture PVCs had revealed pseudomonas aeruginosa. More recently from 06/22/2021 Aspergillus not fumigatus. D-dimer 6.90. Sodium 133. Potassium 4.7. Bicarb 18. Creatinine 4.31. LDH 605. C- reactive protein 7.7. CBC is pending. He remains on cefepime and Diflucan. Continued on Decadron. Eliquis on hold. Remains on bronchodilators, vitamin supplements. The patient is seen today 06/26/2021 in follow-up in the intensive care unit. He remains intubated and on the mechanical ventilator. Then assist-control mode. Rate of 36, tidal volume 450, FiO2 50% and a PEEP of 14. Arterial blood gases reveal pO2 of 69, pCO2 37, pH 7.29. He remains on propofol at 50 mcg/k g/m. Nimbex at 3 mcg/kg/m. Fentanyl 0.6 mcg/kg per hour. Tube feedings are currently on hold. The plan is for tracheostomy and PEG tube placements today. Today's chest x-ray shows possible interval development of a right-sided tiny pneumothorax. Pneumothorax evaluation is limited due to the extensive subcutaneous emphysema seen bilaterally secondary to pneumomediastinum. Worsening right lower lobe consolidation. Diffuse bilateral lung infiltrates. Follow-up sputum culture positive for Aspergillus not fumigatus. Previous sputum culture was positive for pseudomonas. White count 8.4. Hemoglobin 7.9. Platelet count 66,000. Lymphocytes 0.3. Sodium 134. Potassium 5.2. Bicarb 16. BUN 83. Creatinine 5.26. Glucose 88. He remains on cefepime. Continued on Decadron. Bronchodilators, vitamin supplements. The patient is seen today 06/27/2021 in follow-up in the intensive care unit. He did undergo tracheostomy tube placement on 06/26/2021. PEG tube was unable to be placed. NG tube remains in place. He is on mechanical ventilator at assist control mode with a rate of 36, tidal volume 450, FiO2 60% and a PEEP of 14. Morning blood gases reveal pO2 of 76, pCO2 39, pH 7.32. Sedated on propofol at 50 mcg/kg/m. Paralyzed with Nimbex at 3 mcg/kg/m. Fentanyl drip at 0.6 mcg/kg per hour. He is being nourished with vital HPI 15 ML's per hour with a goal of 30 ML's per hour. 0.9 normal saline at 20 ML's per hour. He did receive hemodialysis yesterday with 2.4 L removed. He remains on a significant amount of upper chest neck and face subcutaneous emphysema from pne umomediastinum. Chest x-ray continues to show bilateral patchy infiltrates. White count 6.5. Hemoglobin 7.4. Platelet count 96,000. Lymphocytes 0.4. Sodium 134. Potassium 4.4. Bicarb 19. Creatinine 4.12. AST 19. ALT 19. Most recent pro-calcitonin 3.12. D-dimer 6.9. Eliquis be resumed today. He remains on cefepime. Continued on Decadron and vitamin supplements. Remains on bronchodilators. Objective - Vital Signs Vital signs: Vital Signs Temp 97.9 F 06/26/21 20:00 Pulse 72 06/27/21 07:00 Resp 36 H 06/27/21 07:00 BP 104/60 06/26/21 17:51 Pulse Ox 94 L 06/27/21 07:00 Intake & Output 06/26/21 06/27/21 06/27/21 18:59 06:59 18:59 Intake Total 805.606 771.722 217.548 Output Total 2585 20 5 Balance -1779.394 751.722 212.548 Weight 122.2 kg 120.5 kg Intake: IV 326 276 23 0.9 240 240 20 Pressure bag 36 36 3 Intake, IV Titration 449.606 465.722 179.548 Amount Cisatracurium 200 mg In 156.702 178.458 Sodium Chloride 0.9% 180 ml @ 1 MCG/KG/MIN 5.88 mls/hr IV .Q24H [facility] Rx#: [id number] fentaNYL (PF). 1,000 mcg 92.904 89.254 In Sodium Chloride 0.9% 80 ml @ 0.25 MCG/KG/HR 2. 765 mls/hr IV .Q24H [facility] Rx#:[id number] propofoL 1,000 mg In 200 287.264 90.294 Empty Bag 1 bag @ Titrate IV .Q0M [facility] Rx#: [id number] Tube Feeding 30 15 Other 30 Output: Gastric Drainage 50 Urine 30 20 5 Hemodialysis 2500 Estimated Blood Loss 5 Other: Voiding Method Indwelling Catheter Indwelling Catheter ABP, PAP, CO, CI - Last Documented Arterial Blood Pressure 137/58 - Exam GENERAL EXAM: Sedated, paralyzed 75-year-old gentleman, tracheostomy tube placed, on mechanical ventilator, comfortable in no apparent distress. HEAD: Normocephalic. EYES: Sluggish reaction of pupils, equal size. NOSE: Nasogastric tube in place Clear with pink turbinates. THROAT: No erythema or exudates. NECK: Tracheostomy tube secured in place. No masses, no JVD. CHEST: No chest wall deformity. Significant subcutaneous emphysema on chest, neck, face. LUNGS: Equal air entry with bilateral scattered rhonchi or crackles in the posterior. CVS: S1 and S2 normal with no audible murmur, irregular rhythm. ABDOMEN: No hepatosplenomegaly, normal bowel sounds, no guarding or rigidity. SPINE: No scoliosis or deformity SKIN: No rashes CENTRAL NERVOUS SYSTEM: Sedated, paralyzed, tone is normal in all 4 extremities. EXTREMITIES: There is 1-2+ peripheral edema. No clubbing, no cyanosis. Peripheral pulses are intact. - Labs CBC & Chem 7: 06/27/21 04:20 06/27/21 04:20 Labs: Abnormal Lab Results - Last 24 Hours (Table) 06/25/21 06/27/21 06/27/21 Range/Units 03:50 04:20 04:20 RBC 2.50 L (4.30-5.90) m/uL Hgb 7.4 L (13.0-17.5) gm/dL Hct 22.1 L (39.0-53.0) % RDW 15.9 H (11.5-15.5) % Plt Count 96 L (150-450) k/uL Lymphocytes # 0.4 L (1.0-4.8) k/uL ABG pH (7.35-7.45) ABG pO2 (83-108) mmHg ABG HCO3 (21-25) mmol/L Sodium 134 L (137-145) mmol/L Carbon Dioxide 19 L (22-30) mmol/L BUN 61 H (9-20) mg/dL Creatinine 4.12 H (0.66-1.25) mg/dL Calcium 7.9 L (8.4-10.2) mg/dL Total Protein 4.7 L (6.3-8.2) g/dL Albumin 2.1 L (3.5-5.0) g/dL Procalcitonin 3.12 H (0.02-0.09) ng/mL 06/27/21 Range/Units 05:33 RBC (4.30-5.90) m/uL Hgb (13.0-17.5) gm/dL Hct (39.0-53.0) % RDW (11.5-15.5) % Plt Count (150-450) k/uL Lymphocytes # (1.0-4.8) k/uL ABG pH 7.32 L (7.35-7.45) ABG pO2 76 L (83-108) mmHg ABG HCO3 20 L (21-25) mmol/L Sodium (137-145) mmol/L Carbon Dioxide (22-30) mmol/L BUN (9-20) mg/dL Creatinine (0.66-1.25) mg/dL Calcium (8.4-10.2) mg/dL Total Protein (6.3-8.2) g/dL Albumin (3.5-5.0) g/dL Procalcitonin (0.02-0.09) ng/mL Assessment and Plan Assessment: 1 Acute hypoxemic respiratory failure secondary to coronavirus associated pneumonia. Unvaccinated. The patient had developed diffuse bilateral pulmonary infiltrates secondary to COVID-19 related pneumonia/ARDS. Subsequently the p atient failed BiPAP therapy and he was intubated on 06/15/2021, currently sedated and paralyzed on a mechanical ventilator. Tracheostomy tube placed on 06/26/2021. Unable to place a PEG tube. Chest x-ray was noted. Pneumomediastinum with significant subcutaneous emphysema noted. 2 Acute COVID-19 related pneumonia with diffuse but the pulmonary infiltrates and diffuse groundglass pulmonary changes 3 Elevated inflammatory markers secondary to above 4 Acute renal failure with creatinine up to 4.12, GFR 13. Renal replacement therapy started 06/20/2021 5 History of chronic atrial fibrillation with recent RVR. On oral amiodarone. Eliquis for anticoagulation on hold for PEG and trach, resumed 06/27/2021. 6 Elevated pro calcitonin, currently on cefepime 7 Pseudomonas and yeast in the sputum, likely secondary to immunosuppression provided by Solu-Medrol and Baricitinib. Follow-up sputum culture from 06/22/2021 now revealing aspergillus not fumigatus. 8 Extensive oropharyngeal candidiasis, currently on Diflucan 9 Leukocytosis, recovered 10 Hypotension. Recovered and off pressors currently Plan: The patient was seen and evaluated by Dr. Paris Chest x-ray, ABGs and labs reviewed Continues with significant subcutaneous emphysema secondary to pneumomediastinum Tracheostomy replaced on 06/26/[address] a PEG tube Eliquis resumed today Tube feeds resumed Continued on Decadron, vitamin supplements Overall prognosis remains quite guarded We'll continue to follow and make further recommendations based on his clinical status Critical care time 37 minutes I, the cosigning physician, performed a history & physical examination of the patient. Lungs sounds with posterior crackles in the bases, bilateral scattered rhonchi. Maintaining O2 saturations in the 90s on 60% FiO2 with a PEEP of 14 via the mechanical ventilator. I discussed the assessment and plan of care with my nurse practitioner, Mar Ruelas. I attest to the above note as dictated by her.
--- NOTE | 2021-06-27 09:43 | P.PN ---
Subjective Patient is seen in follow-up for acute kidney injury, currently hemodialysis dependent. Oliguric. Status post tracheostomy on June 26. Blood pressure stable. Vital signs are stable. HEENT: Head exam is tracheostomy noted. LUNGS: Breath sounds decreased. HEART: Rate and Rhythm are regular. ABDOMEN: Soft, no distention. EXTREMITITES: 1+ edema. Scrotal edema noted. Objective - Vital Signs Vital signs: Vital Signs Temp 97.9 F 06/26/21 20:00 Pulse 72 06/27/21 07:00 Resp 36 H 06/27/21 07:00 BP 104/60 06/26/21 17:51 Pulse Ox 94 L 06/27/21 07:00 Intake & Output 06/26/21 06/27/21 06/27/21 18:59 06:59 18:59 Intake Total 805.606 771.722 217.548 Output Total 2585 20 5 Balance -1779.394 751.722 212.548 Weight 122.2 kg 120.5 kg Intake: IV 326 276 23 0.9 240 240 20 Pressure bag 36 36 3 Intake, IV Titration 449.606 465.722 179.548 Amount Cisatracurium 200 mg In 156.702 178.458 Sodium Chloride 0.9% 180 ml @ 1 MCG/KG/MIN 5.88 mls/hr IV .Q24H [facility] Rx#: [id number] fentaNYL (PF). 1,000 mcg 92.904 89.254 In Sodium Chloride 0.9% 80 ml @ 0.25 MCG/KG/HR 2. 765 mls/hr IV .Q24H [facility] Rx#:[id number] propofoL 1,000 mg In 200 287.264 90.294 Empty Bag 1 bag @ Titrate IV .Q0M [facility] Rx#: [id number] Tube Feeding 30 15 Other 30 Output: Gastric Drainage 50 Urine 30 20 5 Hemodialysis 2500 Estimated Blood Loss 5 Other: Voiding Method Indwelling Catheter Indwelling Catheter ABP, PAP, CO, CI - Last Documented Arterial Blood Pressure 137/58 - Labs CBC & Chem 7: 06/27/21 04:20 06/27/21 04:20 Labs: Abnormal Lab Results - Last 24 Hours (Table) 06/25/21 06/27/21 06/27/21 Range/Units 03:50 04:20 04:20 RBC 2.50 L (4.30-5.90) m/uL Hgb 7.4 L (13.0-17.5) gm/dL Hct 22.1 L (39.0-53.0) % RDW 15.9 H (11.5-15.5) % Plt Count 96 L (150-450) k/uL Lymphocytes # 0.4 L (1.0-4.8) k/uL ABG pH (7.35-7.45) ABG pO2 (83-108) mmHg ABG HCO3 (21-25) mmol/L Sodium 134 L (137-145) mmol/L Carbon Dioxide 19 L (22-30) mmol/L BUN 61 H (9-20) mg/dL Creatinine 4.12 H (0.66-1.25) mg/dL Calcium 7.9 L (8.4-10.2) mg/dL Total Protein 4.7 L (6.3-8.2) g/dL Albumin 2.1 L (3.5-5.0) g/dL Procalcitonin 3.12 H (0.02-0.09) ng/mL 06/27/21 Range/Units 05:33 RBC (4.30-5.90) m/uL Hgb (13.0-17.5) gm/dL Hct (39.0-53.0) % RDW (11.5-15.5) % Plt Count (150-450) k/uL Lymphocytes # (1.0-4.8) k/uL ABG pH 7.32 L (7.35-7.45) ABG pO2 76 L (83-108) mmHg ABG HCO3 20 L (21-25) mmol/L Sodium (137-145) mmol/L Carbon Dioxide (22-30) mmol/L BUN (9-20) mg/dL Creatinine (0.66-1.25) mg/dL Calcium (8.4-10.2) mg/dL Total Protein (6.3-8.2) g/dL Albumin (3.5-5.0) g/dL Procalcitonin (0.02-0.09) ng/mL Assessment and Plan Plan: Assessment: 1. Acute kidney injury secondary to ATN secondary to sepsis/covid-19 infection. Baseline creatinine is near 1. Currently hemodialysis dependent. Right fem oral catheter placed June 20. Oliguric. 2. Volume overload. 3. Acute hypoxic respiratory failure secondary to covid-19 pneumonia and volume overload. 4. A. fib with RVR maintained on oral amiodarone. 5. Metabolic acidosis secondary to acute kidney injury. On oral bicarbonate. Expect further improvement postdialysis. 6. Hyperphosphatemia secondary to acute kidney injury maintained on PhosLo. Plan: Hemodialysis today with goal 2-3 L ultrafiltration. Continue with daily dialysis for now. Receiving tube feeding. Stopped Lasix as anuric. Continue to monitor renal function and urine output. Add Aranesp .
[2021-06-27 11:40] LABS: Glucose,Whole Blood 85 mg/dL (75-99)
[2021-06-27] MEDS: APIXABAN 5 MG TAB PO SCH ×2 (11:57→20:40)
[2021-06-27] MEDS: DARBEPOETIN ALFA 40 MCG/0.4 ML SYRINGE SQ SCH (12:57)
[2021-06-27] MEDS: NOREPINEPHRINE 8 MG in SODIUM CHLORIDE 0.9% 250 ML IV SCH (14:35)
--- NOTE | 2021-06-27 15:23 | P.PN ---
Subjective Progress Note Date: 06/27/21 CHIEF COMPLAINT: COVID-19 pneumonia HISTORY OF PRESENT ILLNESS: Patient currently ICU for COVID-19 pneumonia. He is mechanically intubated. He is status post tracheostomy placement. PEG tube insertion was aborted. Unable to see light reflex during EGD. Patient is getting hemodialysis. His Eliquis was restarted. Afebrile. WBC is 6.5 hemoglobin 7.4 platelets 96. Patient has NG tube in place with tube feedings for nutrition support. PHYSICAL EXAM: VITAL SIGNS: Reviewed. GENERAL: Well-developed in no acute distress. HEENT: No sclera icterus. Extraocular movements grossly intact. Moist buccal mucosa. Head is atraumatic, normocephalic. Tracheostomy site clean dry and intact ABDOMEN: Soft. Nondistended. Nontender. NEUROLOGIC: On mechanical ventilation and sedated ASSESSMENT: 1. Acute hypoxic respiratory failure secondary to COVID-19 pneumonia. Patient requiring prolonged mechanical ventilation. Status post tracheostomy placement 2. Severe protein calorie malnutrition PLAN: -Continue ICU management -Continue supportive care Physician [employer] note has been reviewed by physician. Signing provider agrees with the documented findings, assessment, and plan of care. Objective - Vital Signs Vital signs: Vital Signs Temp 97.4 F L 06/27/21 12:00 Pulse 67 06/27/21 14:00 Resp 36 H 06/27/21 14:00 BP 104/60 06/26/21 17:51 Pulse Ox 92 L 06/27/21 14:00 Intake & Output 06/26/21 06/27/21 06/27/21 18:59 06:59 18:59 Intake Total 805.606 771.722 750.510 Output Total 2585 20 15 Balance -1779.394 751.722 735.510 Weight 122.2 kg 120.5 kg Intake: IV 326 276 184 0.9 240 240 160 Pressure bag 36 36 24 Intake, IV Titration 449.606 465.722 256.510 Amount Cisatracurium 200 mg In 156.702 178.458 Sodium Chloride 0.9% 180 ml @ 1 MCG/KG/MIN 5.88 mls/hr IV .Q24H [facility] Rx#: [id number] fentaNYL (PF). 1,000 mcg 92.904 89.254 In Sodium Chloride 0.9% 80 ml @ 0.25 MCG/KG/HR 2. 765 mls/hr IV .Q24H [facility] Rx#:[id number] propofoL 1,000 mg In 200 287.264 167.256 Empty Bag 1 bag @ Titrate IV .Q0M [facility] Rx#: [id number] Tube Feeding 30 130 Other 30 180 Output: Gastric Drainage 50 Urine 30 20 15 Hemodialysis 2500 Estimated Blood Loss 5 Other: Voiding Method Indwelling Catheter Indwelling Catheter Indwelling Catheter ABP, PAP, CO, CI - Last Documented Arterial Blood Pressure 92/37 - Labs CBC & Chem 7: 06/27/21 04:20 06/27/21 04:20 Labs: Abnormal Lab Results - Last 24 Hours (Table) 06/27/21 06/27/21 06/27/21 Range/Units 04:20 04:20 05:33 RBC 2.50 L (4.30-5.90) m/uL Hgb 7.4 L (13.0-17.5) gm/dL Hct 22.1 L (39.0-53.0) % RDW 15.9 H (11.5-15.5) % Plt Count 96 L (150-450) k/uL Lymphocytes # 0.4 L (1.0-4.8) k/uL ABG pH 7.32 L (7.35-7.45) ABG pO2 76 L (83-108) mmHg ABG HCO3 20 L (21-25) mmol/L Sodium 134 L (137-145) mmol/L Carbon Dioxide 19 L (22-30) mmol/L BUN 61 H (9-20) mg/dL Creatinine 4.12 H (0.66-1.25) mg/dL Calcium 7.9 L (8.4-10.2) mg/dL Total Protein 4.7 L (6.3-8.2) g/dL Albumin 2.1 L (3.5-5.0) g/dL
--- NOTE | 2021-06-27 15:42 | P.PN ---
Subjective Progress Note Date: 06/27/21 This is a 75-year-old male who was recently admitted with COVID-19 infection with acute hypoxic respiratory failure and is being closely monitored. Pulmonary following closely and patient is maintained on dexamethasone along with Lovenox and vitamin and zinc supplements. Patient currently maintained on 15 L high flow via nasal cannula with supplemental use of 15 L nonrebreather. Patient states his breathing is slightly improved and not requiring a nonrebreather as often. Instructed the patient to use incentive spirometer and increase activity as tolerated. Patient continues to be extremely weak and will have PT/OT evaluate the patient once more stable. 06/06/2021 Patient is seen in follow-up this morning states his shortness of breath has slightly worsened and his recovery time and working to breathe has become more difficult. Patient is continued on 15 L high flow along with nonrebreather intermittently and having to use it more frequently today he states. Incentive spirometer at the bedside and instructed the patient to continue to use at least 10 times every hour while awake and encouraged increased activity as tolerated. Patient states he walked to the bathroom with assistance and became extremely dyspneic. Patient is afebrile. D-dimer is 4.72 with a WBC of 16 and hemoglobin is stable at 15.4. Sodium is 138 with a potassium of 4.5 and current creatinine is 0.63. LDH is elevated at 2492 and CRP is 6.5. Chest x-ray today shows findings consistent with COVID-19 pneumonia with bilateral interstitial and airspace disease present. 06/07/2021 Patient is seen and evaluated in follow up this morning and is having increasing shortness of breath and on 15L high flow via NC and 15 L non-rebreather. Patient has been back in bed and attempting position changes frequently along with prone position. Patient continues on lovenox, baracitinib, vitamin and zinc supplement s,and steroids. Pulmonary following closely. 06/10/2021 Patient is seen in follow up this morning and is now maintained on airvo at 60% and continues to be extremely dyspneic with minimal exertion. Patient also continues with 15L Non rebreather as needed. Patient is maintained on lovenox along with baricitinib and IV steroids with pulmonary following. Patient states he has no reserve and taking longer periods of time to recover with attempting to position change or use the urinal. 06/11/2021 Patient is seen in follow-up and evaluated this morning and is continued on Airvo and maintaining oxygen saturations in the low 90s. Pulmonary following closely. Patient is afebrile. Patient is continued on vitamin and zinc supplements along with Baricitinib and subcutaneous Lovenox along with IV steroids and will continue. Patient's d-dimer today is elevated at 18.25 and will increase Lovenox to 50 subcu twice daily. White blood count today is 18.6 and hemoglobin is stable at 13.7, sodium is 139 with a potassium of 4.3 current creatinine is 0.7. Inflammatory markers are elevated with some trending down and CRP is 1.5, LDH is 1968 and alk phos is 168. Patient is afebrile. Patient continues to be extremely anxious and will continue Xanax as needed. Encouraged increase activity as tolerated and continued position changes with incentive spirometer use. 06/12/2021 Patient is seen in follow-up this morning with no acute issues noted overnight. Patient continues on Airvo with a flow rate of 55 and FiO2 of 80% maintaining oxygen saturations above 90%. Pulmonary following closely and we'll continue to wean as tolerated. Patient continues on Lovenox twice daily along with vitamin and zinc supplements and continued on IV steroids along with albuterol and Baricitinib. White blood count is 23.7 with a hemoglobin of 14.1, sodium is 139 with a potassium of 4.4 and current creatinine is 0.62. Will repeat chest x-ray along with inflammatory markers in the morning. 06/13/2021 Patient is seen and evaluated in follow-up as morning and continues to be on Airvo. Patient appears to be more raspy with some sputum and congested today with a hoarse voice. Infectious disease and pulmonary following closely. Sputum culture from 06/02 just today preliminary showing gram-negative bacilli along with Essence albicans and patient is being started on IV cefepime with repeat sputum culture ordered along with oral Diflucan. White blood count is 23.5 with hemoglobin of 13.8, sodium is 137 and potassium is 5.5 and current creatinine is 0.55. LFTs are mildly elevated. Repeat d-dimer along with CRP and LDH have been ordered. Will repeat a.m. labs. Chest x-ray today shows con tinued peripheral and lower lung interstitial infiltrates of Covid pneumonia without significant change. 06/14/2021 Patient is seen and evaluated in follow-up this morning continues to be dyspneic and requesting to go to the bed as he has been sitting up in the chair all day. Patient has been started on Diflucan along with IV cefepime and sputum culture from 06/02/2021 resulted showing Pseudomonas aeruginosa along with Essence albicans. Infectious disease is following closely. Patient is completing Baricitinib and will be transitioned to oral prednisone taper with pulmonary following closely. Patient has been started on eliquis. D-dimer today has trended down to 11.02, LDH is 2178, CRP is 3.2, liver functions trending down. White blood count slightly trending down at 20.2 and hemoglobin is stable at 13.7, sodium is 136 with a potassium of 4.3 and current creatinine is 0.57. Continues to have a mildly raspy voice with some throat dryness and will add Cepacol. 06/15/2021 Patient evaluated in bed and is resting on the BiPAP in the intensive care unit, he had desaturated this morning will be moved to the bathroom and initially was on a 15L HF, however is now requiring BiPAP. Patient was started on a Precedex drip. Repeat chest x-ray today which revealed persistent multifocal and confluent bilateral reticulonodular opacities is consistent with known coronary infection more prominent in the lower lungs. Patient finished a course of therapy with Baricitinib and transitioned to oral prednisone. Labs reviewed today include a white blood cell count 21.2, hemoglobin of 12.5. Blood gases show a pO2 of 32 and O2 saturation of 50.3. Chloride is 110, CO2 20, sodium 137, potassium 4. LDH is worse today at 2277, alk phos 158, CRP is trending upwards of 4.6. Patient has remained afebrile, heart rate is now 83, respirations 32, blood pressure 124/68. Oxygen saturation is maintaining in the mid to high 80s on 100% BiPAP. Patient is nothing by mouth and oral medications are unable to be given. Patient is on IV cefepime for a sputum culture positive for Pseudomonas. He is IV Diflucan for oral candidiasis that was improving as of yesterday. 06/16/2021 Patient is evaluated in the intensive care unit, he is status post intubation and has NG tube in place. Labs reviewed today included white blood cell, 44.2, d-dimer greater than 34. ABGs from the A-line included a pH of 7.15, pCO2 of 71, total CO2 is 27 and oxygen saturation of 98. Bicarb is 25 and his pO2 is 107. Additional labs include a serum potassium 5.1, chloride of 109, BUN of 27, creatinine 1.06. Vital signs include a heart rate of 123 tachycardia, respiratory rate of 36, blood pressure 100/50, he is 98% oxygen saturation. Patient is on vasopressors for his blood pressure. Repeat blood cultures are negative. Patient is receiving propofol for sedation. His chest x-ray was reviewed which is showing bilateral pulmonary infiltrates demonstrating COVID- 19 pneumonia with ARDS. Patient is still getting IV cefepime for a sputum culture Pseudomonas although his pro calcitonin level is 0.03 which is not usually indicative of a bacterial infection. Additional inflammatory markers remain elevated. Patient did receive 2 L saline bolus. Repeat labs in the morning, prognosis is guarded for this patient. 06/17/2021 Patient is seen in follow-up continues to be monitored closely in the ICU with multiple medical consultations following. Prognosis is extremely guarded. Patient's respiratory status significantly worsened requiring mechanical ventilation and intubation and currently patient is sedated. White blood count is worsened at 26.1 and hemoglobin is 12.2, d-dimer is 27.06, ABG is 7.16 pH with a pCO2 of 57 and a pO2 of 68 and bicarb is 20, sodium is 140 with a potassium of 5.0 and current creatinine has worsened at 2.29 pro calcitonin is 24.40. Infectious disease along with pulmonary pot sander following closely. Patient continues on cefepime along with eliquis, vitamin and zinc supplements and patient has finished Baricitinib. Patient was on oral Decadron and is being transitioned back to IV dexamethasone along with Diflucan. Patient was given a dose of IV Lasix and nephrology has been consulted. Cardiology consulted as well and patient is currently on amiodarone drip along with Cleviprex and currently sedated on propofol. Patient also has norepinephrine drip as well. Patient being started on sodium bicarb drip. Patient also has low-grade fevers. 06/18/2021 Patient is seen in follow up in the ICU and maintained on mechanical vent intubated and sedated. Patient continues on NImbex, sodium bicarb, amiodarone, and being started on fentanyl as IV lasix drip with multiple medical consultations following. Kidney functions continue to deteriorate with nephrology following closely. Discussion being had about possible hemodialysis if kidney functions continue to worsen. Creatinine currently 3.69 today. 06/19/2021 Patient remains on mechanical vent with minimal urine output note and extensive volume overload with worsening kidney functions and would like to proceed with hemodialysis catheter placement with nephrology following closely. Multiple consultations following and Dr. Mann consulted for hemodialysis catheter placement and will hold eliquis. Amiodarone being transitioned to oral with cardiology following closely. Continue close monitoring in the ICU. Overall Prognosis remains extremely poor and guarded. 06/20/2021 Patient is seen and evaluated in follow-up continue to be closely monitored with multiple medical consultations following in the ICU. Patient remains intubated on mechanical ventilation and sedated. Kidney functions continue to worsen and patient is an extensive volume overload and has received dialysis catheter today and will initiate hemodialysis. Patient was maintained on IV Lasix drip which is being transitioned to IV push Lasix twice daily with nephrology following closely. Patient also continues on IV cefepime along with dexamethasone, vitamin and zinc supplements and continues on eliquis as well. White blood count 11.9 and hemoglobin is 9.6, platelets are 61 and d-dimer is 8.40. Sodium is 135 with a potassium of 5.0 and current BUN is 99 with a creatinine of 5.23. LDH is 1015 and pro calcitonin is 13.10. Prognosis remains extremely guarded. 06/21/2021 Patient is evaluated in follow up this morning and continues to be monitored closely in the ICU. On mechanical vent with an FI02 of 50%. Currently receiving hemodialysis and will likely require daily treatments if tolerated for extensive overload. Patient continues on IV lasix twice daily along with Nimbex, propofol, and fentanyl. Chest xray done today. Patient continues on IV cefepime with most recent repeat sputum culture revealing no growth. Infectious disease following closely. 06/22/2021 Patient remains intubated in the ICU, on ventilatory before meals settings, tidal volume 450, 50% FiO2, PEEP of 16, saturating 80%. ABG showing pO2 66, pCO2 42, pH 7.32, he was dialyzed for 2-1/2 L removed., He is making urine He remains sedated with propofol and he is paralyzed with Nimbex. His sputum is growing pseudomonas receiving antimicrobial therapy of cefepime, ID is following. No fever this morning, blood pressure 09/26/1939/50. Chest x-ray showing extensive bilateral airspace disease, correlate for pneumonia or ARDS. In atrial fibrillation with controlled ventricular rate 06/23/2021 Patient remains intubated on ventilatory support in the ICU, currently on assist control, 55% FiO2, PEEP of 14, TG 450. ABG this morning showing pH 7.31, pCO2 43, pO2 54, bicarb 22. O2 saturations marginal 90-91%, blood pressure stable. He remains in atrial fibrillation, with controlled ventricular rate, antic oagulated with Eliquis. Labs today show sodium 135, creatinine 4.18, WBC 12.7, hemoglobin 8.3 platelets 40. He is on IV Lasix, low urine output 270 ml yesterday Continue systemic steroids of Decadron 6 daily, eyes receiving antimicrobial therapy with cefepime, and fluconazole. sedated with fentanyl. 06/24/2021 Patient is seen and evaluated continues to be closely monitored in the ICU. Patient is currently receiving hemodialysis with an attempt of 2 L removal as the goal is 3 although patient's blood pressure is not tolerating. Nephrology and pulmonary pot sander following closely. General surgery has been consulted for possible PEG and trach tube placement. Patient continues on Cleviprex along with fentanyl and propofol, IV dexamethasone, vitamin and zinc supplements, scheduled Reglan and IV cefepime. No reported bowel movements and patient not tolerating tube feeds with a large amount of residual noted in the NG. Chest x- ray today shows interval development of pneumomediastinum is suspected with arts and progression of subcutaneous emphysema. 06/25/2021 Patient is seen this morning in follow-up continues to be closely monitored in the ICU with multiple medical consultations following. Patient did not receive hemodialysis today and plan is scheduled for tomorrow with nephrology following closely. Eliquis remains on hold as general surgery plans for tracheostomy and PEG tube placement tomorrow. Patient continues to have no bowel movement and have ordered fleets enema and will continue with bowel regimen. Chest x-ray today shows continued extensive overlying subcutaneous emphysema with pneumomediastinum and bilateral compliant reticulonodular opacities related to COVID-19 infection again noted with no significant change from previous. Patient is maintained on IV cefepime along with Cleviprex, IV dexamethasone, fentanyl and propofol, scheduled Reglan and is also being started on sodium bicarb. 06/26/2021 Patient is seen and evaluated this morning continues to be on mechanical vent and intubated and sedated being closely monitored in the ICU. Multiple medical consultations following including general surgery and plan is for tracheostomy and PEG tube placement today. Eliquis has been on hold along with tube feeds and will discuss with surgery about initiating tube feeds and resuming anticoagulant. Per nursing staff patient had small amount of blood noted at the NG tube along with patient having a bowel movement with blood noted and hemoglo bin today is 7.9, platelets are 66. Patient also continues on IV cefepime along with IV dexamethasone, vitamin and zinc supplements and will continue. Patient maintained on Cleviprex along with fentanyl and propofol. Patient is scheduled to receive dialysis today with nephrology following closely. Chest x-ray today personally reviewed by me shows possible interval development of right-sided pn eumothorax although pneumothorax evaluation is limited due to extensive subcutaneous emphysema present bilaterally along with worsening right lower lobe consolidation, diffuse bilateral infiltrates. Pulmonary pot sander is following closely. 06/27/2021 Patient is seen and evaluated in follow-up today status post receiving tracheostomy and continues to be sedated on the vent and currently receiving hemodialysis today. Patient continues to be closely monitored in the ICU with multiple medical consultations following. Patient continues to have extensive swelling and edema with noted subcutaneous emphysema that continues to worsen. PEG tube was also attempted by surgery and unsuccessful given the abdominal wall thickening and extensive edema noted. NG tube to be replaced and will continue tube feedings via NG. Patient did receive hemodialysis yesterday and able to tolerate approximately 2-2-1/2 L although blood pressure continued to drop and will continue with 2 L per nephrology. Patient continues on IV cefepime along with Nimbex, IV dexamethasone, fentanyl and propofol. Patient also continues on vitamin and zinc supplements and Eliquis has been resumed. Labs: Sodium is 134, potassium is 4.4, BUN 61, creatinine is 4.1 to, WBC 8.4, hemoglobin is 7.4, platelets 96 Review of systems: Unable to complete a full review of symptoms as patient is sedated and on a ventilator. Active Medications Acetaminophen (Acetaminophen Tab 325 Mg Tab) 650 mg PO Q6HR PRN PRN Reason: Fever and/ or Mild Pain Last Admin: 06/14/21 22:22 Dose: 650 mg Documented by: Albuterol Sulfate (Albuterol Hfa Inhaler) 2 puff INHALATION RT-QID [facility] Last Admin: 06/27/21 15:00 Dose: 2 puff Documented by: Albuterol Sulfate (Albuterol Hfa Inhaler) 2 puff INHALATION RT-QID PRN PRN Reason: Shortness Of Breath Or Wheezing Last Admin: 06/15/21 03:30 Dose: 2 puff Documented by: Amiodarone HCl (Amiodarone 200 Mg Tab) 200 mg PO BID [facility] Last Admin: 06/27/21 08:36 Dose: 200 mg Documented by: Apixaban (Apixaban 5 Mg Tab) 5 mg PO BID [facility]; Protocol Last Admin: 06/27/21 11:57 Dose: 5 mg Documented by: Artificial Tears (Artificial Tears-Hypromellose Drops 15 Ml Btl) 2 drops BOTH EYES Q4HR [facility] Last Admin: 06/27/21 11:54 Dose: 2 drops Documented by: Ascorbic Acid (Ascorbic Acid 500 Mg Tab) 500 mg PO DAILY [facility] Last Admin: 06/27/21 08:36 Dose: 500 mg Documented by: Benzocaine/Menthol (Benzocaine/Menthol Lozeng 1 Each Lozenge) 1 each MUCOUS MEM Q4HR PRN PRN Reason: Sore Throat Bisacodyl (Bisacodyl 10 Mg Supp) 10 mg RECTAL DAILY [facility] Last Admin: 06/27/21 08:35 Dose: 10 mg Documented by: Calcium Acetate (Calcium Acetate 667 Mg Tab) 667 mg PO TID-W/MEALS [facility] Last Admin: 06/27/21 11:57 Dose: 667 mg Documented by: Chlorhexidine Gluconate (Chlorhexidine Gluconate 15 Ml Cup) 15 ml MUCOUS MEM BID [facility] Last Admin: 06/27/21 08:35 Dose: 15 ml Documented by: Cholecalciferol (Cholecalciferol 25 Mcg (1000 Iu) Tablet) 25 mcg PO DAILY [facility] Last Admin: 06/27/21 08:35 Dose: 25 mcg Documented by: Cyanocobalamin (Cyanocobalamin 500 Mcg Tab) 1,000 mcg PO DAILY [facility] Last Admin: 06/27/21 08:36 Dose: 1,000 mcg Documented by: Darbepoetin Shalom (Darbepoetin Shalom 40 Mcg/0.4 Ml Syringe) 40 mcg SQ Q7D [facility] Last Admin: 06/27/21 12:57 Dose: 40 mcg Documented by: Dexamethasone Sodium Phosphate (Dexamethasone Sod Phosphate 10 Mg/Ml 1 Ml Vial) 6 mg IV DAILY [facility] Last Admin: 06/27/21 08:35 Dose: 6 mg Documented by: Fluconazole (Fluconazole 100 Mg Tab) 100 mg PO DAILY [facility] Last Admin: 06/27/21 08:36 Dose: 100 mg Documented by: Propofol 1,000 mg/ IV Solution 100 mls @ 0 mls/hr IV .Q0M [facility]; Protocol Last Admin: 06/27/21 14:16 Dose: 50 mcg/kg/min, 36.36 mls/hr Documented by: Norepinephrine Bitartrate 8 mg (/ Sodium Chloride) 258 mls @ 9.482 mls/hr IV .Q24H [facility]; Protocol Last Admin: 06/27/21 14:35 Dose: Not Given Documented by: Cisatracurium Besylate 200 mg/ (Sodium Chloride) 200 mls @ 5.88 mls/hr IV .Q24H [facility]; Protocol Last Admin: 06/26/21 23:02 Dose: 3 mcg/kg/min, 17.64 mls/hr Documented by: Fentanyl Citrate 1,000 mcg/ (Sodium Chloride) 100 mls @ 2.765 mls/hr IV .Q24H [facility]; Protocol Last Admin: 06/27/21 08:24 Dose: 0.6 mcg/kg/hr, 6.636 mls/hr Documented by: Cefepime HCl 1 gm/ Sodium (Chloride) 50 mls @ 12.5 mls/hr IVPB HS [facility] Last Admin: 06/26/21 22:06 Dose: 12.5 mls/hr Documented by: Metoclopramide HCl (Metoclopramide 5 Mg/Ml 2 Ml Vial) 5 mg IVP Q8H [facility] Last Admin: 06/27/21 11:57 Dose: 5 mg Documented by: Metoprolol Tartrate (Metoprolol Tartrate 25 Mg Tab) 25 mg PO DAILY [facility] Last Admin: 06/27/21 08:35 Dose: 25 mg Documented by: Pantoprazole Sodium (Pantoprazole 40 Mg/10 Ml Vial) 40 mg IVP BID [facility] Last Admin: 06/27/21 08:35 Dose: 40 mg Documented by: Senna/Docusate Sodium (Sennosides-Docusate Sodium 1 Each Tab) 1 each PO DAILY [facility] Last Admin: 06/27/21 08:36 Dose: 1 each Documented by: Sodium Bicarbonate (Sodium Bicarbonate Tab 650 Mg Tab) 650 mg PO TID [facility] Last Admin: 06/27/21 08:36 Dose: 650 mg Documented by: Zinc Sulfate (Zinc Sulfate 220 Mg Cap) 220 mg PO DAILY [facility] Last Admin: 06/27/21 08:36 Dose: 220 mg Documented by: Physical exam: Gen: This is a 75-year-old male sedated and intubated on propofol and mechanical ventilation. Extensive edema and swelling noted throughout and more so in the face today. Temp is 97.5, pulse is 74, resp are 36, blood pressure is 161/56 arterial, and pulse ox is 91% on mechanical vent with an FI02 of 60% HEENT: Head is atraumatic, normocephalic. Pupils equal, round. Sclerae is anicteric. NECK: Supple. No JVD. No lymphadenopathy. No thyromegaly. Extensive subcutaneous emphysema of the face and neck traveling down the arms and continues in the chest LUNGS: Diminished breath sounds bilaterally with scattered coarse rhonchi and crackles noted at the bases. Extensive subcutaneous emphysema persists HEART: Irregular S1, S2 are muffled ABDOMEN: Soft. Edematous. obese. Hypoactive Bowel sounds are present. No masses. No guarding or rigidity noted. EXTREMITIES: Extensive pitting edema noted of upper and lower bilateral extremities and much of the body. Subcutaneous emphysema noted of bilateral upper extremities NEUROLOGICAL: Patient is intubated and sedated Assessment: Acute COVID-19 infection with acute component of interstitial pneumonia, bilateral, possibly ARDS with acute hypoxic respiratory failure and possible sepsis secondary to COVID-19 Status post mechanical ventilation and intubation after failed BIPAP on 06/15/2021 secondary to above Status post tracheostomy placement Extensive Subcutaneous emphysema pneumomediastinum as noted on x-ray acute renal failure likely ATN with worsening kidney functions and minimal urine output requiring hemodialysis volume overload secondary to ARF metabolic acidosis afib with RVR currently rate controlled on oral amiodarone and metoprolol Lactic acidosis secondary to above Initial sputum culture showing Essence albicans and pseudomonas aeruginosa and maintained on IV cefepime repeat sputum culture showing aspergillus not fu migatus Oral candidiasis started on Diflucan, sputum cultures from 06/02/2021 Essence albicans Extensive interstitial bilateral COVID-19 pneumonia Elevated white blood count possibly secondary to above Possible subsegmental pulmonary embolism ruled out History of atrial fibrillation Anxiety Remote history of nicotine dependence GI prophylaxis: Protonix DVT prophylaxis: On eliquis Full code Plan: Recommend to continue with current medications and continue to closely monitor in the ICU. Patient remains on mechanical ventilation and intubated. Patient received tracheostomy placement with surgery. Given extreme abdominal wall thickening and edema unsuccessful for PEG tube placement and have resumed NG tube and will continue tube feeds via NG tube. Patient continues on IV cefepime with ID following closely as well. repeat sputum culture showing aspergillus not fumigatus. Patient continues on vitamin and zinc supplements IV dexamethasone and will continue. Patient has completed Baricitinib. Patient with extensive volume overload and has been receiving hemodialysis with nephrology following closely. Currently receiving hemodialysis again today. Thursday/Thursday/Thursday hemodialysis to be continued. Will repeat a.m. labs. Prognosis is extremely guarded and will continue to monitor closely. Objective - Vital Signs Vital signs: Vital Signs Temp 97.9 F 06/26/21 20:00 Pulse 72 06/27/21 07:00 Resp 36 H 06/27/21 07:00 BP 104/60 06/26/21 17:51 Pulse Ox 94 L 06/27/21 07:00 Intake & Output 06/26/21 06/27/21 06/27/21 18:59 06:59 18:59 Intake Total 805.606 771.722 217.548 Output Total 2585 20 5 Balance -1779.394 751.722 212.548 Weight 122.2 kg 120.5 kg Intake: IV 326 276 23 0.9 240 240 20 Pressure bag 36 36 3 Intake, IV Titration 449.606 465.722 179.548 Amount Cisatracurium 200 mg In 156.702 178.458 Sodium Chloride 0.9% 180 ml @ 1 MCG/KG/MIN 5.88 mls/hr IV .Q24H [facility] Rx#: [id number] fentaNYL (PF). 1,000 mcg 92.904 89.254 In Sodium Chloride 0.9% 80 ml @ 0.25 MCG/KG/HR 2. 765 mls/hr IV .Q24H [facility] Rx#:[id number] propofoL 1,000 mg In 200 287.264 90.294 Empty Bag 1 bag @ Titrate IV .Q0M [facility] Rx#: [id number] Tube Feeding 30 15 Other 30 Output: Gastric Drainage 50 Urine 30 20 5 Hemodialysis 2500 Estimated Blood Loss 5 Other: Voiding Method Indwelling Catheter Indwelling Catheter ABP, PAP, CO, CI - Last Documented Arterial Blood Pressure 137/58 - Labs CBC & Chem 7: 06/27/21 04:20 06/27/21 04:20 Labs: Abnormal Lab Results - Last 24 Hours (Table) 06/25/21 06/27/21 06/27/21 Range/Units 03:50 04:20 04:20 RBC 2.50 L (4.30-5.90) m/uL Hgb 7.4 L (13.0-17.5) gm/dL Hct 22.1 L (39.0-53.0) % RDW 15.9 H (11.5-15.5) % Plt Count 96 L (150-450) k/uL Lymphocytes # 0.4 L (1.0-4.8) k/uL ABG pH (7.35-7.45) ABG pO2 (83-108) mmHg ABG HCO3 (21-25) mmol/L Sodium 134 L (137-145) mmol/L Carbon Dioxide 19 L (22-30) mmol/L BUN 61 H (9-20) mg/dL Creatinine 4.12 H (0.66-1.25) mg/dL Calcium 7.9 L (8.4-10.2) mg/dL Total Protein 4.7 L (6.3-8.2) g/dL Albumin 2.1 L (3.5-5.0) g/dL Procalcitonin 3.12 H (0.02-0.09) ng/mL 06/27/21 Range/Units 05:33 RBC (4.30-5.90) m/uL Hgb (13.0-17.5) gm/dL Hct (39.0-53.0) % RDW (11.5-15.5) % Plt Count (150-450) k/uL Lymphocytes # (1.0-4.8) k/uL ABG pH 7.32 L (7.35-7.45) ABG pO2 76 L (83-108) mmHg ABG HCO3 20 L (21-25) mmol/L Sodium (137-145) mmol/L Carbon Dioxide (22-30) mmol/L BUN (9-20) mg/dL Creatinine (0.66-1.25) mg/dL Calcium (8.4-10.2) mg/dL Total Protein (6.3-8.2) g/dL Albumin (3.5-5.0) g/dL Procalcitonin (0.02-0.09) ng/mL
[2021-06-27 18:05] LABS: Glucose,Whole Blood 102 mg/dL (75-99)
[2021-06-27 18:12] LABS: % Iron Saturation 23.5 (15.00-50.00)
[2021-06-27] MEDS: CISATRACURIUM 200 MG in SODIUM CHLORIDE 0.9% 180 ML IV SCH (18:54)
[2021-06-27] MEDS: CEFEPIME 1 GM in SODIUM CHLORIDE 0.9% 50 ML IVPB SCH (20:40)
[2021-06-27 23:49] LABS: Glucose,Whole Blood 85 mg/dL (75-99)
[2021-06-28] MEDS: ARTIFICIAL TEARS-HYPROMELLOSE DROPS 15 ML BTL BOTH EYES SCH ×5 (04:06→21:18)
[2021-06-28] MEDS: METOCLOPRAMIDE 5 MG/ML 2 ML VIAL IVP SCH ×3 (04:06→21:16)
[2021-06-28] MEDS: CISATRACURIUM 200 MG in SODIUM CHLORIDE 0.9% 180 ML IV SCH (05:10)
[2021-06-28 05:29] LABS: ABG Base Excess -4.6 mmol/L; ABG HCO3 22 mmol/L (21-25); ABG Oxygen Saturation 92.7 % (94-97); ABG PCO2 44 mmHg (35-45); ABG PH 7.31 (7.35-7.45); ABG PO2 67 mmHg (83-108); ABG TCO2 23 mmol/L (19-24); Allen Test Performed? Yes
[2021-06-28 05:41] LABS: Anisocytosis Slight; Basophils % (A) 0 %; Eosinophils # (A) 0.1 k/uL (0-0.7); Eosinophils % (A) 2 %; HCT 23.4 % (39.0-53.0); HGB 7.8 gm/dL (13.0-17.5); Lymphocytes # (A) 0.4 k/uL (1.0-4.8); Lymphocytes % (A) 7 %; MCH 29.5 pg (25.0-35.0); MCHC 33.3 g/dL (31.0-37.0); MCV 88.8 fL (80.0-100.0); Mean Platelet Volume 10.9; Monocytes # (A) 0.3 k/uL (0-1.0); Monocytes % (A) 6 %; Neutrophils # (A) 4.8 k/uL (1.3-7.7); Neutrophils % (A) 84 %; RBC 2.63 m/uL (4.30-5.90); RDW 16.1 % (11.5-15.5); WBC 5.8 k/uL (3.8-10.6)
[2021-06-28 05:49] LABS: Platelet Count 169 k/uL (150-450)
--- NOTE | 2021-06-28 06:08 | XR ---
EXAMINATION TYPE: XR chest 1V portable DATE OF EXAM: 06/28/2021 CLINICAL HISTORY: Difficulty breathing progress study. TECHNIQUE: Single AP portable semiupright view of the chest is obtained. COMPARISON: Chest x-ray from one day earlier and older studies. FINDINGS: Stable tracheostomy tube and orogastric tubes. Stable left subclavian central venous lorin ter. Extensive overlying subcutaneous emphysema redemonstrated. Bilateral confluent reticulonodular opacit ies redemonstrated. Cardiac silhouette size is stable and mildly enlarged. Osseous structures are int act. Pneumomediastinum redemonstrated. IMPRESSION: Extensive overlying subcutaneous emphysema with pneumomediastinum and bilateral confluent reticulonodular opacities related to covid-19 infection and/or ARDS are all redemonstrated. No signi ficant change from one day earlier.
[2021-06-28 06:29] LABS: Glucose,Whole Blood 88 mg/dL (75-99)
[2021-06-28] MEDS: CALCIUM ACETATE 667 MG TAB PO SCH ×3 (06:30→17:23)
[2021-06-28] MEDS: ALBUTEROL HFA INHALER INHALATION SCH ×4 (08:55→20:59)
--- NOTE | 2021-06-28 09:12 | P.PN ---
Subjective Progress Note Date: 06/28/21 Principal diagnosis: COVID-19 pneumonia The patient is seen today 06/19/2021 in follow-up in the intensive care unit. He remains intubated and on the mechanical ventilator. Current settings are assist-control rate of 36, tidal volume 430, FiO2 50% and a PEEP of 14. Morning blood gases revealed a pO2 of 60, pCO2 of 51, pH 7.27. He remains sedated on propofol at 50 mcg/kg/m, paralyzed with Nimbex at 1.5 mcg/kg/m. He is on fentanyl at 0.5 mcg/kg/hr. Amiodarone drip at 0.5 mg/m. Lasix drip at 10 mg per hour. D5W with 3 A of sodium bicarbonate 150 MLS per hour. Remains on cefepime and Diflucan. Anticoagulated with Eliquis. He remains on Decadron 6 mg IV daily. Vitamin supplements. Chest x-ray continues to show few scattered lung infiltrates. Stable compared to previous. Left central line in place. Endotracheal tube and gastric tubes in good position. Sputum culture from 06/02/2021 was positive for pseudomonas aeruginosa and Essence. Follow up cultures reveal no growth. Blood cultures reveal no growth. White count 16.0. Hemoglobin 10.4. Platelet count 71,000. Lymphocytes 0.4. D-dimer 10.4 seconds. Sodium 135. Potassium 4.4. Bicarb 22. BUN 75. Creatinine 4.63. LDH 1095. Blood glucose 151. The patient is seen today 06/20/2021, the intensive care unit. He remains intubated and on mechanical ventilator. Current mode of assist control with a respiratory rate of 36, tidal volume 450, FiO2 55% and a PEEP of 16. Morning blood gases on 60% FiO2 revealed a PaO2 of 77, pCO2 45, pH 7.29. Peak airway pressures 38, plateau pressure 36. He remains on fentanyl at 0.5 mcg/kg per hour, Lasix drip at 10 mg per hour, propofol at 50 mcg/g/m, Nimbex at 2mcg/kg/min. 0.9 normal saline at 10 MLS per hour. He remains on cefepime and Diflucan. He is currently in atrial fibrillation with controlled ventricular rate. Chest x-ray continues to show diffuse bilateral interstitial airspace disease. More focal left basilar consolidation also persists. Small left pleural effusion. No appreciable pneumothorax. Increasing subcutaneous emphys ingris at the base of the left neck and along the chest bilaterally. Follow-up sputum culture revealed no growth. Blood cultures reveal no growth. White count 11.9. Hemoglobin 9.6. Platelet count 61,000. Lymphocytes 0.4. D-dimer 8.4. Sodium 135. Potassium 5.0. Bicarb 21. Creatinine 5.23. BUN 99. Glucose 115. LDH 1015. He is continued on Decadron, and Eliquis, vitamin supplements. He is to receive a hemodialysis catheter today. Tube feedings currently on hold due to high residuals. Patient seen today 06/21/2021 in follow-up in the intensive care unit. He remains intubated and on mechanical ventilator. Current settings assist-control mode, respiratory rate 36, tidal volume 450, FiO2 50% and a PEEP of 16. Morning blood gases reveal a pO2 of 66, pCO2 42, pH 7.32. Chest x-ray continues to show bilateral patchy opacities along with subcutaneous emphysema which is a bit worse. 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 No clear evidence of pneumothorax. He did receive hemodialysis yesterday with 1 L removed. Plan is for hemodialysis again today. He remains in atrial fibrillation. Anticoagulated with Eliquis. Remains on antibiotics in the form of cefepime. He is also sedated on propofol 50 mcg/kg/m, paralyzed and Nimbex at 2 mcg/kg/m, fentanyl 5 mcg/mg/h. Initial sputum culture was positive for Pseudomonas and Essence. Follow-up sputum culture reveals no growth. Culture reveals no growth. White count 10.5. Hemoglobin 9.6. Platelet count 49,000. D-dimer 8.41. Sodium 134. Potassium 5.0. BUN 91. Creatinine 5.06. Glucose 94. LDH 842. C-reactive protein 3.8. Remains on Decadron. IV diuretics. Vitamin supplements. The patient is seen today 06/25/2021 in follow-up in the intensive care unit. He remains intubated, sedated, paralyzed. Currently in assist-control mode at a rate of 36, tidal volume 450, FiO2 50% and a PEEP of 14. Morning blood gases reveal pO2 of 62, pCO2 37, pH 7.33. He has 0.9 normal saline at 20 ML's per hour. Propofol 50 mcg/kg/m. Nimbex at 3 mcg/kg/m. Fentanyl 0.6 mcg/kg/hr. Vital AF at 15 ML's per hour. Chest x-ray continues to show extensive overlying subcutaneous emphysema with pneumomediastinum and bilateral confluent reticulonodular opacities secondary to COVID-19 infection. No significant change compared to yesterday. Sputum culture PVCs had revealed pseudomonas aeruginosa. More recently from 06/22/2021 Aspergillus not fumigatus. D-dimer 6.90. Sodium 133. Potassium 4.7. Bicarb 18. Creatinine 4.31. LDH 605. C- reactive protein 7.7. CBC is pending. He remains on cefepime and Diflucan. Continued on Decadron. Eliquis on hold. Remains on bronchodilators, vitamin supplements. The patient is seen today 06/26/2021 in follow-up in the intensive care unit. He remains intubated and on the mechanical ventilator. Then assist-control mode. Rate of 36, tidal volume 450, FiO2 50% and a PEEP of 14. Arterial blood gases reveal pO2 of 69, pCO2 37, pH 7.29. He remains on propofol at 50 mcg/k g/m. Nimbex at 3 mcg/kg/m. Fentanyl 0.6 mcg/kg per hour. Tube feedings are currently on hold. The plan is for tracheostomy and PEG tube placements today. Today's chest x-ray shows possible interval development of a right-sided tiny pneumothorax. Pneumothorax evaluation is limited due to the extensive subcutaneous emphysema seen bilaterally secondary to pneumomediastinum. Worsening right lower lobe consolidation. Diffuse bilateral lung infiltrates. Follow-up sputum culture positive for Aspergillus not fumigatus. Previous sputum culture was positive for pseudomonas. White count 8.4. Hemoglobin 7.9. Platelet count 66,000. Lymphocytes 0.3. Sodium 134. Potassium 5.2. Bicarb 16. BUN 83. Creatinine 5.26. Glucose 88. He remains on cefepime. Continued on Decadron. Bronchodilators, vitamin supplements. The patient is seen today 06/27/2021 in follow-up in the intensive care unit. He did undergo tracheostomy tube placement on 06/26/2021. PEG tube was unable to be placed. NG tube remains in place. He is on mechanical ventilator at assist control mode with a rate of 36, tidal volume 450, FiO2 60% and a PEEP of 14. Morning blood gases reveal pO2 of 76, pCO2 39, pH 7.32. Sedated on propofol at 50 mcg/kg/m. Paralyzed with Nimbex at 3 mcg/kg/m. Fentanyl drip at 0.6 mcg/kg per hour. He is being nourished with vital HPI 15 ML's per hour with a goal of 30 ML's per hour. 0.9 normal saline at 20 ML's per hour. He did receive hemodialysis yesterday with 2.4 L removed. He remains on a significant amount of upper chest neck and face subcutaneous emphysema from pne umomediastinum. Chest x-ray continues to show bilateral patchy infiltrates. White count 6.5. Hemoglobin 7.4. Platelet count 96,000. Lymphocytes 0.4. Sodium 134. Potassium 4.4. Bicarb 19. Creatinine 4.12. AST 19. ALT 19. Most recent pro-calcitonin 3.12. D-dimer 6.9. Eliquis be resumed today. He remains on cefepime. Continued on Decadron and vitamin supplements. Remains on bronchodilators. The patient is seen today 06/28/2021 in follow-up in the intensive care unit. He remains on the mechanical ventilator currently in assist-control mode at a rate of 36, tidal volume 450, FiO2 60% and a PEEP of 14. Morning blood gases reveal a pO2 of 66, pCO2 43, pH 7.31. Chest x-ray continues to show extensive overlying subcutaneous emphysema with pneumomediastinum and bilateral confluent reticulonodular opacities related to COVID-19 and/or ARDS. He remains sedated on propofol at 50 mg/kg/m, Nimbex at 3 mcg/kg/m, fentanyl at 0.6 mcg/kg/h. 0.9 normal saline at 20 ML's per hour. Tracheostomy tube is secured in place. NG tube remains in place. Unable to place a PEG tube. He is somewhat hypertensive. The plan is to start some Cleviprex today. He is also having issues with blood oozing from his nose. He is on Eliquis 5 mg by mouth twice a day. Antibiotics in the form of cefepime. Decadron 6 mg daily, vitamin supplements. White count 5.8. Hemoglobin 7.8. Platelet count 169. Other labs pending. Objective - Vital Signs Vital signs: Vital Signs Temp 98.9 F 06/28/21 08:00 Pulse 89 06/28/21 08:00 Resp 28 H 06/28/21 08:00 BP 159/93 06/28/21 08:00 Pulse Ox 88 L 06/28/21 08:00 Intake & Output 06/27/21 06/28/21 06/28/21 18:59 06:59 18:59 Intake Total 7815.614 9185.263 106 Output Total 15 10 Balance 6676.539 8718.263 106 Weight 123 kg Intake: IV 276 276 46 0.9 240 240 40 Pressure bag 36 36 6 Intake, IV Titration 556.510 461.263 Amount Cisatracurium 200 mg In 200 181.104 Sodium Chloride 0.9% 180 ml @ 1 MCG/KG/MIN 5.88 mls/hr IV .Q24H [facility] Rx#: [id number] fentaNYL (PF). 1,000 mcg 89.254 90.471 In Sodium Chloride 0.9% 80 ml @ 0.25 MCG/KG/HR 2. 765 mls/hr IV .Q24H [facility] Rx#:[id number] propofoL 1,000 mg In 267.256 189.688 Empty Bag 1 bag @ Titrate IV .Q0M [facility] Rx#: [id number] Tube Feeding 230 340 60 Other 240 90 Output: Urine 15 10 Other: Voiding Method Indwelling Catheter Indwelling Catheter Indwelling Catheter ABP, PAP, CO, CI - Last Documented Arterial Blood Pressure 168/66 - Exam GENERAL EXAM: Sedated, paralyzed 75-year-old gentleman, tracheostomy tube placed, on mechanical ventilator, comfortable in no apparent distress. HEAD: Normocephalic. EYES: Sluggish reaction of pupils, equal size. NOSE: Nasogastric tube in place. There is some oozing of blood in the past 24 hours. THROAT: No erythema or exudates. NECK: Tracheostomy tube secured in place. No masses, no JVD. CHEST: No chest wall deformity. Significant subcutaneous emphysema on chest, neck, face. LUNGS: Equal air entry with bilateral scattered rhonchi or crackles in the posterior. CVS: S1 and S2 normal with no audible murmur, irregular rhythm. ABDOMEN: No hepatosplenomegaly, normal bowel sounds, no guarding or rigidity. SPINE: No scoliosis or deformity SKIN: No rashes CENTRAL NERVOUS SYSTEM: Sedated, paralyzed, tone is normal in all 4 extremities. EXTREMITIES: There is 1-2+ peripheral edema. No clubbing, no cyanosis. Peripheral pulses are intact. - Labs CBC & Chem 7: 06/28/21 04:00 06/27/21 04:20 Labs: Abnormal Lab Results - Last 24 Hours (Table) 06/27/21 06/27/21 06/28/21 Range/Units 04:20 18:03 04:00 RBC 2.63 L (4.30-5.90) m/uL Hgb 7.8 L (13.0-17.5) gm/dL Hct 23.4 L (39.0-53.0) % RDW 16.1 H (11.5-15.5) % Lymphocytes # 0.4 L (1.0-4.8) k/uL ABG pH (7.35-7.45) ABG pO2 (83-108) mmHg ABG O2 Saturation (94-97) % POC Glucose (mg/dL) 102 H (75-99) mg/dL Iron 39 L (65-175) ug/dL TIBC 164 L (228-460) ug/dL Transferrin 117.0 L (204.0-354.0) mg/dL Ferritin 1009.0 H (22.0-322.0) ng/mL 06/28/21 Range/Units 05:25 RBC (4.30-5.90) m/uL Hgb (13.0-17.5) gm/dL Hct (39.0-53.0) % RDW (11.5-15.5) % Lymphocytes # (1.0-4.8) k/uL ABG pH 7.31 L (7.35-7.45) ABG pO2 67 L (83-108) mmHg ABG O2 Saturation 92.7 L (94-97) % POC Glucose (mg/dL) (75-99) mg/dL Iron (65-175) ug/dL TIBC (228-460) ug/dL Transferrin (204.0-354.0) mg/dL Ferritin (22.0-322.0) ng/mL Assessment and Plan Assessment: 1 Acute hypoxemic respiratory failure secondary to coronavirus associated pneumonia. Unvaccinated. The patient had developed diffuse bilateral pulmonary infiltrates secondary to COVID-19 related pneumonia/ARDS. Subsequently the patient failed BiPAP therapy and he was intubated on 06/15/2021, currently sedated and paralyzed on a mechanical ventilator. Tracheostomy tube placed on 06/26/2021. Unable to place a PEG tube. Chest x-ray was noted. Pneumomediastinum with significant subcutaneous emphysema continues secondary to pneumomediastinum. 2 Acute COVID-19 related pneumonia with diffuse but the pulmonary infiltrates and diffuse groundglass pulmonary changes 3 Elevated inflammatory markers secondary to above 4 Acute renal failure with creatinine up to 4.12, GFR 13. Renal replacement therapy started 06/20/2021 5 History of chronic atrial fibrillation with recent RVR. On oral amiodarone. Eliquis resumed 06/27/2021. 6 Elevated pro calcitonin, currently on cefepime 7 Pseudomonas and yeast in the sputum, likely secondary to immunosuppression provided by Solu-Medrol and Baricitinib. Follow-up sputum culture from 06/22/2021 now revealing aspergillus not fumigatus. 8 Extensive oropharyngeal candidiasis, currently on Diflucan 9 Leukocytosis, recovered 10 Hypotension. Recovered and off pressors currently 11 Epistaxis Plan: The patient was seen and evaluated by Dr. Paris Chest x-ray, ABGs and labs reviewed Decrease tidal volume to 400 Continues with significant subcutaneous emphysema secondary to pneumomediastinum Tracheostomy placed on 06/26/[address] a PEG tube Eliquis resumed 06/27/2021 Tube feeds resumed via NG tube Cleviprex for hypertension Continued on cefepime, Decadron, vitamin supplements Overall prognosis remains quite guarded Dr. Paris spoke with the patient's at length today We'll continue to follow and make further recommendations based on his clinical status Critical care time 38 minutes I, the cosigning physician, performed a history & physical examination of the patient. Lungs sounds with posterior crackles in the bases, bilateral scattered rhonchi. Maintaining O2 saturations in the 90s on 60% FiO2 with a PEEP of 14 via the mechanical ventilator. I discussed the assessment and plan of care with my nurse practitioner, Mar Ruelas. I attest to the above note as dictated by her.
[2021-06-28] MEDS: SENNOSIDES-DOCUSATE SODIUM 1 EACH TAB PO SCH (09:26)
[2021-06-28] MEDS: PANTOPRAZOLE 40 MG/10 ML VIAL IVP SCH ×2 (09:26→21:15)
[2021-06-28] MEDS: SODIUM BICARBONATE TAB 650 MG TAB PO SCH ×3 (09:26→21:18)
[2021-06-28] MEDS: CYANOCOBALAMIN 500 MCG TAB PO SCH (09:26)
[2021-06-28] MEDS: CHLORHEXIDINE GLUCONATE 15 ML CUP MUCOUS MEM SCH ×2 (09:26→21:16)
[2021-06-28] MEDS: ASCORBIC ACID 500 MG TAB PO SCH (09:27)
[2021-06-28] MEDS: bisacodyL 10 MG SUPP RECTAL SCH (09:27)
[2021-06-28] MEDS: ZINC SULFATE 220 MG CAP PO SCH (09:27)
[2021-06-28] MEDS: AMIODARONE 200 MG TAB PO SCH ×2 (09:27→21:18)
[2021-06-28] MEDS: METOPROLOL TARTRATE 25 MG TAB PO SCH (09:27)
[2021-06-28] MEDS: DEXAMETHASONE SOD PHOSPHATE 10 MG/ML 1 ML VIAL IV SCH (09:27)
[2021-06-28] MEDS: CHOLECALCIFEROL 25 MCG (1000 IU) TABLET PO SCH (09:27)
[2021-06-28 09:34] LABS: Albumin 2.2 g/dL (3.5-5.0); Calcium 8.1 mg/dL (8.4-10.2); Potassium 4.2 mmol/L (3.5-5.1); Total Bilirubin 0.5 mg/dL (0.2-1.3); Total Protein 4.9 g/dL (6.3-8.2)
--- NOTE | 2021-06-28 10:34 | P.PN ---
Subjective Patient is seen in follow-up for acute kidney injury, currently hemodialysis dependent. Oliguric. Status post tracheostomy on June 26. Blood pressure high. Will be started on Cleviprex today. Undergoing daily dialysis with about 2-2-1/2 L ultrafiltration. Vital signs are stable. HEENT: Head exam is tracheostomy noted. LUNGS: Breath sounds decreased. HEART: Rate and Rhythm are regular. ABDOMEN: Soft, no distention. EXTREMITITES: 1+ edema. Scrotal edema noted. Objective - Vital Signs Vital signs: Vital Signs Temp 98.9 F 06/28/21 08:00 Pulse 92 06/28/21 09:00 Resp 36 H 06/28/21 09:00 BP 159/93 06/28/21 09:00 Pulse Ox 88 L 06/28/21 09:00 Intake & Output 06/27/21 06/28/21 06/28/21 18:59 06:59 18:59 Intake Total 6774.894 4976.263 229 Output Total 15 10 Balance 7969.238 8423.263 229 Weight 123 kg Intake: IV 276 276 69 0.9 240 240 60 Pressure bag 36 36 9 Intake, IV Titration 556.510 461.263 100 Amount Cisatracurium 200 mg In 200 181.104 Sodium Chloride 0.9% 180 ml @ 1 MCG/KG/MIN 5.88 mls/hr IV .Q24H [facility] Rx#: [id number] fentaNYL (PF). 1,000 mcg 89.254 90.471 In Sodium Chloride 0.9% 80 ml @ 0.25 MCG/KG/HR 2. 765 mls/hr IV .Q24H [facility] Rx#:[id number] propofoL 1,000 mg In 267.256 189.688 100 Empty Bag 1 bag @ Titrate IV .Q0M [facility] Rx#: [id number] Tube Feeding 230 340 60 Other 240 90 Output: Urine 15 10 Other: Voiding Method Indwelling Catheter Indwelling Catheter Indwelling Catheter ABP, PAP, CO, CI - Last Documented Arterial Blood Pressure 163/66 - Labs CBC & Chem 7: 06/28/21 04:00 06/28/21 04:00 Labs: Abnormal Lab Results - Last 24 Hours (Table) 06/27/21 06/27/21 06/28/21 Range/Units 04:20 18:03 04:00 RBC 2.63 L (4.30-5.90) m/uL Hgb 7.8 L (13.0-17.5) gm/dL Hct 23.4 L (39.0-53.0) % RDW 16.1 H (11.5-15.5) % Lymphocytes # 0.4 L (1.0-4.8) k/uL ABG pH (7.35-7.45) ABG pO2 (83-108) mmHg ABG O2 Saturation (94-97) % Sodium (137-145) mmol/L Carbon Dioxide (22-30) mmol/L BUN (9-20) mg/dL Creatinine (0.66-1.25) mg/dL POC Glucose (mg/dL) 102 H (75-99) mg/dL Calcium (8.4-10.2) mg/dL Iron 39 L (65-175) ug/dL TIBC 164 L (228-460) ug/dL Transferrin 117.0 L (204.0-354.0) mg/dL Ferritin 1009.0 H (22.0-322.0) ng/mL Total Protein (6.3-8.2) g/dL Albumin (3.5-5.0) g/dL 06/28/21 06/28/21 Range/Units 04:00 05:25 RBC (4.30-5.90) m/uL Hgb (13.0-17.5) gm/dL Hct (39.0-53.0) % RDW (11.5-15.5) % Lymphocytes # (1.0-4.8) k/uL ABG pH 7.31 L (7.35-7.45) ABG pO2 67 L (83-108) mmHg ABG O2 Saturation 92.7 L (94-97) % Sodium 136 L (137-145) mmol/L Carbon Dioxide 20 L (22-30) mmol/L BUN 47 H (9-20) mg/dL Creatinine 3.88 H (0.66-1.25) mg/dL POC Glucose (mg/dL) (75-99) mg/dL Calcium 8.1 L (8.4-10.2) mg/dL Iron (65-175) ug/dL TIBC (228-460) ug/dL Transferrin (204.0-354.0) mg/dL Ferritin (22.0-322.0) ng/mL Total Protein 4.9 L (6.3-8.2) g/dL Albumin 2.2 L (3.5-5.0) g/dL Assessment and Plan Plan: Assessment: 1. Acute kidney injury secondary to ATN secondary to sepsis/covid-19 infection. Baseline creatinine is near 1. Currently hemodialysis dependent. Right femoral catheter placed June 20. Oliguric. 2. Volume overload. Receiving daily ultrafiltration. 3. Acute hypoxic respiratory failure secondary to covid-19 pneumonia and volume overload. 4. A. fib with RVR maintained on oral amiodarone. 5. Metabolic acidosis secondary to acute kidney injury. On oral bicarbonate. Expect further improvement postdialysis. 6. Hyperphosphatemia secondary to acute kidney injury maintained on PhosLo. Plan: Hemodialysis today with goal 2-3 L ultrafiltration. Continue with daily dialysis for now. Receiving tube feeding. Cleviprex will be added today. Stopped Lasix as anuric. Continue to monitor renal function and urine output. Continue to monitor for renal recovery. Will need either a permacath or the femoral catheter replaced as it was placed June 20.
[2021-06-28 11:50] LABS: Glucose,Whole Blood 88 mg/dL (75-99)
[2021-06-28] MEDS: CLEVIDIPINE BUTYRATE 25 MG in EMPTY BAG 1 BAG IV SCH ×2 (12:55→23:19)
[2021-06-28] MEDS: FLUCONAZOLE 100 MG TAB PO SCH (13:14)
[2021-06-28] MEDS: fentaNYL (PF). 1,000 MCG in SODIUM CHLORIDE 0.9% 80 ML IV SCH (14:00)
--- NOTE | 2021-06-28 16:21 | P.PN ---
Subjective Progress Note Date: 06/28/21 CHIEF COMPLAINT: COVID-19 pneumonia HISTORY OF PRESENT ILLNESS: Patient currently ICU for COVID-19 pneumonia. He is on mechanically ventilation. He is status post tracheostomy placement on 06/26/2021. PEG tube insertion was aborted. Unable to see light reflex during EGD. Patient has NG tube in place for tube feedings. Patient has had bleeding from his nose. He has not Eliquis. Afebrile. WBC is 6.5 hemoglobin 7.4 platelets 96. Patient has NG tube in place with tube feedings for nutrition sup port. Chest x-ray showing extensive overlying subcutaneous emphysema with pneumomediastinum and bilateral confluent reticulonodular opacities related to COVID-19 infection and/or regards are already demonstrated. Patient followed closely by critical care service. PHYSICAL EXAM: VITAL SIGNS: Reviewed. GENERAL: Well-developed in no acute distress. HEENT: No sclera icterus. Extraocular movements grossly intact. Moist buccal mucosa. Head is atraumatic, normocephalic. Tracheostomy site clean dry and intact ABDOMEN: Soft. Nondistended. Nontender. NEUROLOGIC: On mechanical ventilation and sedated ASSESSMENT: 1. Acute hypoxic respiratory failure secondary to COVID-19 pneumonia. Patient requiring prolonged mechanical ventilation. Status post tracheostomy placement 2. Severe protein calorie malnutrition PLAN: -Continue ICU management -Continue supportive care Physician Senior Mechanical Design Engineer note has been reviewed by physician. Signing provider agrees with the documented findings, assessment, and plan of care. Objective - Vital Signs Vital signs: Vital Signs Temp 97.4 F L 06/28/21 12:00 Pulse 109 H 06/28/21 14:00 Resp 11 L 06/28/21 14:00 BP 159/93 06/28/21 09:00 Pulse Ox 76 L 06/28/21 14:00 Intake & Output 06/27/21 06/28/21 06/28/21 18:59 06:59 18:59 Intake Total 8729.580 8088.263 344 Output Total 15 10 Balance 4839.253 5452.263 344 Weight 123 kg 123 kg Intake: IV 276 276 184 0.9 240 240 160 Pressure bag 36 36 24 Intake, IV Titration 556.510 461.263 100 Amount Cisatracurium 200 mg In 200 181.104 Sodium Chloride 0.9% 180 ml @ 1 MCG/KG/MIN 5.88 mls/hr IV .Q24H [facility] Rx#: [id number] fentaNYL (PF). 1,000 mcg 89.254 90.471 In Sodium Chloride 0.9% 80 ml @ 0.25 MCG/KG/HR 2. 765 mls/hr IV .Q24H [facility] Rx#:[id number] propofoL 1,000 mg In 267.256 189.688 100 Empty Bag 1 bag @ Titrate IV .Q0M [facility] Rx#: [id number] Tube Feeding 230 340 60 Other 240 90 Output: Urine 15 10 Other: Voiding Method Indwelling Catheter Indwelling Catheter Indwelling Catheter ABP, PAP, CO, CI - Last Documented Arterial Blood Pressure 116/54 - Labs CBC & Chem 7: 06/28/21 04:00 06/28/21 04:00 Labs: Abnormal Lab Results - Last 24 Hours (Table) 06/27/21 06/27/21 06/28/21 Range/Units 04:20 18:03 04:00 RBC 2.63 L (4.30-5.90) m/uL Hgb 7.8 L (13.0-17.5) gm/dL Hct 23.4 L (39.0-53.0) % RDW 16.1 H (11.5-15.5) % Lymphocytes # 0.4 L (1.0-4.8) k/uL ABG pH (7.35-7.45) ABG pO2 (83-108) mmHg ABG O2 Saturation (94-97) % Sodium (137-145) mmol/L Carbon Dioxide (22-30) mmol/L BUN (9-20) mg/dL Creatinine (0.66-1.25) mg/dL POC Glucose (mg/dL) 102 H (75-99) mg/dL Calcium (8.4-10.2) mg/dL Iron 39 L (65-175) ug/dL TIBC 164 L (228-460) ug/dL Transferrin 117.0 L (204.0-354.0) mg/dL Ferritin 1009.0 H (22.0-322.0) ng/mL Total Protein (6.3-8.2) g/dL Albumin (3.5-5.0) g/dL 06/28/21 06/28/21 Range/Units 04:00 05:25 RBC (4.30-5.90) m/uL Hgb (13.0-17.5) gm/dL Hct (39.0-53.0) % RDW (11.5-15.5) % Lymphocytes # (1.0-4.8) k/uL ABG pH 7.31 L (7.35-7.45) ABG pO2 67 L (83-108) mmHg ABG O2 Saturation 92.7 L (94-97) % Sodium 136 L (137-145) mmol/L Carbon Dioxide 20 L (22-30) mmol/L BUN 47 H (9-20) mg/dL Creatinine 3.88 H (0.66-1.25) mg/dL POC Glucose (mg/dL) (75-99) mg/dL Calcium 8.1 L (8.4-10.2) mg/dL Iron (65-175) ug/dL TIBC (228-460) ug/dL Transferrin (204.0-354.0) mg/dL Ferritin (22.0-322.0) ng/mL Total Protein 4.9 L (6.3-8.2) g/dL Albumin 2.2 L (3.5-5.0) g/dL
[2021-06-28] MEDS: NOREPINEPHRINE 8 MG in SODIUM CHLORIDE 0.9% 250 ML IV SCH (16:57)
[2021-06-28 17:31] LABS: Glucose,Whole Blood 140 mg/dL (75-99)
--- NOTE | 2021-06-28 17:50 | PN ---
PROGRESS NOTE DATE OF SERVICE: 06/28/2021 REASON FOR FOLLOWUP: Pneumonia. INTERVAL HISTORY: The patient is afebrile. The patient is currently breathing comfortably. The patient is hemodynamically stable, not on any pressor support. FiO2 is currently 100%. No significant purulent secretions through the ET. However PHYSICAL EXAMINATION: Blood pressure 126/53, pulse of 82, temperature 97.7. He is 93% on 100% FiO2. General description is an elderly male lying in bed in no distress. RESPIRATORY SYSTEM: Unlabored breathing. Decreased intensity of breath sounds. No wheeze. HEART: S1, S2. Regular rate and rhythm. ABDOMEN: Soft. No tenderness. LABS: Hemoglobin is 7.9, white count of 5.9, creatinine 3.88. DIAGNOSTIC IMPRESSION AND PLAN: Patient with acute respiratory failure which is multifactorial, initially with COVID- 19, subsequently bacterial pneumonia. Patient is covered with cefepime; to continue for now while monitoring clinical course closely. Prognosis remains guarded. MMODL / IJN: [id number] /
[2021-06-28] MEDS: CEFEPIME 1 GM in SODIUM CHLORIDE 0.9% 50 ML IVPB SCH (21:17)
[2021-06-28] MEDS ORDERED: propofoL 100 ML IV ONE (22:04)
[2021-06-29 00:40] LABS: Glucose,Whole Blood 130 mg/dL (75-99)
[2021-06-29] MEDS: ARTIFICIAL TEARS-HYPROMELLOSE DROPS 15 ML BTL BOTH EYES SCH ×6 (03:06→20:29)
--- NOTE | 2021-06-29 04:44 | P.PN ---
Subjective Progress Note Date: 06/28/21 This is a 75-year-old male who was recently admitted with COVID-19 infection with acute hypoxic respiratory failure and is being closely monitored. Pulmonary following closely and patient is maintained on dexamethasone along with Lovenox and vitamin and zinc supplements. Patient currently maintained on 15 L high flow via nasal cannula with supplemental use of 15 L nonrebreather. Patient states his breathing is slightly improved and not requiring a nonrebreather as often. Instructed the patient to use incentive spirometer and increase activity as tolerated. Patient continues to be extremely weak and will have PT/OT evaluate the patient once more stable. 06/06/2021 Patient is seen in follow-up this morning states his shortness of breath has slightly worsened and his recovery time and working to breathe has become more difficult. Patient is continued on 15 L high flow along with nonrebreather intermittently and having to use it more frequently today he states. Incentive spirometer at the bedside and instructed the patient to continue to use at least 10 times every hour while awake and encouraged increased activity as tolerated. Patient states he walked to the bathroom with assistance and became extremely dyspneic. Patient is afebrile. D-dimer is 4.72 with a WBC of 16 and hemoglobin is stable at 15.4. Sodium is 138 with a potassium of 4.5 and current creatinine is 0.63. LDH is elevated at 2492 and CRP is 6.5. Chest x-ray today shows findings consistent with COVID-19 pneumonia with bilateral interstitial and airspace disease present. 06/07/2021 Patient is seen and evaluated in follow up this morning and is having increasing shortness of breath and on 15L high flow via NC and 15 L non-rebreather. Patient has been back in bed and attempting position changes frequently along with prone position. Patient continues on lovenox, baracitinib, vitamin and zinc supplement s,and steroids. Pulmonary following closely. 06/10/2021 Patient is seen in follow up this morning and is now maintained on airvo at 60% and continues to be extremely dyspneic with minimal exertion. Patient also continues with 15L Non rebreather as needed. Patient is maintained on lovenox along with baricitinib and IV steroids with pulmonary following. Patient states he has no reserve and taking longer periods of time to recover with attempting to position change or use the urinal. 06/11/2021 Patient is seen in follow-up and evaluated this morning and is continued on Airvo and maintaining oxygen saturations in the low 90s. Pulmonary following closely. Patient is afebrile. Patient is continued on vitamin and zinc supplements along with Baricitinib and subcutaneous Lovenox along with IV steroids and will continue. Patient's d-dimer today is elevated at 18.25 and will increase Lovenox to 50 subcu twice daily. White blood count today is 18.6 and hemoglobin is stable at 13.7, sodium is 139 with a potassium of 4.3 current creatinine is 0.7. Inflammatory markers are elevated with some trending down and CRP is 1.5, LDH is 1968 and alk phos is 168. Patient is afebrile. Patient continues to be extremely anxious and will continue Xanax as needed. Encouraged increase activity as tolerated and continued position changes with incentive spirometer use. 06/12/2021 Patient is seen in follow-up this morning with no acute issues noted overnight. Patient continues on Airvo with a flow rate of 55 and FiO2 of 80% maintaining oxygen saturations above 90%. Pulmonary following closely and we'll continue to wean as tolerated. Patient continues on Lovenox twice daily along with vitamin and zinc supplements and continued on IV steroids along with albuterol and Baricitinib. White blood count is 23.7 with a hemoglobin of 14.1, sodium is 139 with a potassium of 4.4 and current creatinine is 0.62. Will repeat chest x-ray along with inflammatory markers in the morning. 06/13/2021 Patient is seen and evaluated in follow-up as morning and continues to be on Airvo. Patient appears to be more raspy with some sputum and congested today with a hoarse voice. Infectious disease and pulmonary following closely. Sputum culture from 06/02 just today preliminary showing gram-negative bacilli along with Essence albicans and patient is being started on IV cefepime with repeat sputum culture ordered along with oral Diflucan. White blood count is 23.5 with hemoglobin of 13.8, sodium is 137 and potassium is 5.5 and current creatinine is 0.55. LFTs are mildly elevated. Repeat d-dimer along with CRP and LDH have been ordered. Will repeat a.m. labs. Chest x-ray today shows con tinued peripheral and lower lung interstitial infiltrates of Covid pneumonia without significant change. 06/14/2021 Patient is seen and evaluated in follow-up this morning continues to be dyspneic and requesting to go to the bed as he has been sitting up in the chair all day. Patient has been started on Diflucan along with IV cefepime and sputum culture from 06/02/2021 resulted showing Pseudomonas aeruginosa along with Essence albicans. Infectious disease is following closely. Patient is completing Baricitinib and will be transitioned to oral prednisone taper with pulmonary following closely. Patient has been started on eliquis. D-dimer today has trended down to 11.02, LDH is 2178, CRP is 3.2, liver functions trending down. White blood count slightly trending down at 20.2 and hemoglobin is stable at 13.7, sodium is 136 with a potassium of 4.3 and current creatinine is 0.57. Continues to have a mildly raspy voice with some throat dryness and will add Cepacol. 06/15/2021 Patient evaluated in bed and is resting on the BiPAP in the intensive care unit, he had desaturated this morning will be moved to the bathroom and initially was on a 15L HF, however is now requiring BiPAP. Patient was started on a Precedex drip. Repeat chest x-ray today which revealed persistent multifocal and confluent bilateral reticulonodular opacities is consistent with known coronary infection more prominent in the lower lungs. Patient finished a course of therapy with Baricitinib and transitioned to oral prednisone. Labs reviewed today include a white blood cell count 21.2, hemoglobin of 12.5. Blood gases show a pO2 of 32 and O2 saturation of 50.3. Chloride is 110, CO2 20, sodium 137, potassium 4. LDH is worse today at 2277, alk phos 158, CRP is trending upwards of 4.6. Patient has remained afebrile, heart rate is now 83, respirations 32, blood pressure 124/68. Oxygen saturation is maintaining in the mid to high 80s on 100% BiPAP. Patient is nothing by mouth and oral medications are unable to be given. Patient is on IV cefepime for a sputum culture positive for Pseudomonas. He is IV Diflucan for oral candidiasis that was improving as of yesterday. 06/16/2021 Patient is evaluated in the intensive care unit, he is status post intubation and has NG tube in place. Labs reviewed today included white blood cell, 44.2, d-dimer greater than 34. ABGs from the A-line included a pH of 7.15, pCO2 of 71, total CO2 is 27 and oxygen saturation of 98. Bicarb is 25 and his pO2 is 107. Additional labs include a serum potassium 5.1, chloride of 109, BUN of 27, creatinine 1.06. Vital signs include a heart rate of 123 tachycardia, respiratory rate of 36, blood pressure 100/50, he is 98% oxygen saturation. Patient is on vasopressors for his blood pressure. Repeat blood cultures are negative. Patient is receiving propofol for sedation. His chest x-ray was reviewed which is showing bilateral pulmonary infiltrates demonstrating COVID- 19 pneumonia with ARDS. Patient is still getting IV cefepime for a sputum culture Pseudomonas although his pro calcitonin level is 0.03 which is not usually indicative of a bacterial infection. Additional inflammatory markers remain elevated. Patient did receive 2 L saline bolus. Repeat labs in the morning, prognosis is guarded for this patient. 06/17/2021 Patient is seen in follow-up continues to be monitored closely in the ICU with multiple medical consultations following. Prognosis is extremely guarded. Patient's respiratory status significantly worsened requiring mechanical ventilation and intubation and currently patient is sedated. White blood count is worsened at 26.1 and hemoglobin is 12.2, d-dimer is 27.06, ABG is 7.16 pH with a pCO2 of 57 and a pO2 of 68 and bicarb is 20, sodium is 140 with a potassium of 5.0 and current creatinine has worsened at 2.29 pro calcitonin is 24.40. Infectious disease along with pulmonary fishing vessel deckhand following closely. Patient continues on cefepime along with eliquis, vitamin and zinc supplements and patient has finished Baricitinib. Patient was on oral Decadron and is being transitioned back to IV dexamethasone along with Diflucan. Patient was given a dose of IV Lasix and nephrology has been consulted. Cardiology consulted as well and patient is currently on amiodarone drip along with Cleviprex and currently sedated on propofol. Patient also has norepinephrine drip as well. Patient being started on sodium bicarb drip. Patient also has low-grade fevers. 06/18/2021 Patient is seen in follow up in the ICU and maintained on mechanical vent intubated and sedated. Patient continues on NImbex, sodium bicarb, amiodarone, and being started on fentanyl as IV lasix drip with multiple medical consultations following. Kidney functions continue to deteriorate with nephrology following closely. Discussion being had about possible hemodialysis if kidney functions continue to worsen. Creatinine currently 3.69 today. 06/19/2021 Patient remains on mechanical vent with minimal urine output note and extensive volume overload with worsening kidney functions and would like to proceed with hemodialysis catheter placement with nephrology following closely. Multiple consultations following and Dr. Mann consulted for hemodialysis catheter placement and will hold eliquis. Amiodarone being transitioned to oral with cardiology following closely. Continue close monitoring in the ICU. Overall Prognosis remains extremely poor and guarded. 06/20/2021 Patient is seen and evaluated in follow-up continue to be closely monitored with multiple medical consultations following in the ICU. Patient remains intubated on mechanical ventilation and sedated. Kidney functions continue to worsen and patient is an extensive volume overload and has received dialysis catheter today and will initiate hemodialysis. Patient was maintained on IV Lasix drip which is being transitioned to IV push Lasix twice daily with nephrology following closely. Patient also continues on IV cefepime along with dexamethasone, vitamin and zinc supplements and continues on eliquis as well. White blood count 11.9 and hemoglobin is 9.6, platelets are 61 and d-dimer is 8.40. Sodium is 135 with a potassium of 5.0 and current BUN is 99 with a creatinine of 5.23. LDH is 1015 and pro calcitonin is 13.10. Prognosis remains extremely guarded. 06/21/2021 Patient is evaluated in follow up this morning and continues to be monitored closely in the ICU. On mechanical vent with an FI02 of 50%. Currently receiving hemodialysis and will likely require daily treatments if tolerated for extensive overload. Patient continues on IV lasix twice daily along with Nimbex, propofol, and fentanyl. Chest xray done today. Patient continues on IV cefepime with most recent repeat sputum culture revealing no growth. Infectious disease following closely. 06/22/2021 Patient remains intubated in the ICU, on ventilatory before meals settings, tidal volume 450, 50% FiO2, PEEP of 16, saturating 80%. ABG showing pO2 66, pCO2 42, pH 7.32, he was dialyzed for 2-1/2 L removed., He is making urine He remains sedated with propofol and he is paralyzed with Nimbex. His sputum is growing pseudomonas receiving antimicrobial therapy of cefepime, ID is following. No fever this morning, blood pressure 09/26/1939/50. Chest x-ray showing extensive bilateral airspace disease, correlate for pneumonia or ARDS. In atrial fibrillation with controlled ventricular rate 06/23/2021 Patient remains intubated on ventilatory support in the ICU, currently on assist control, 55% FiO2, PEEP of 14, TG 450. ABG this morning showing pH 7.31, pCO2 43, pO2 54, bicarb 22. O2 saturations marginal 90-91%, blood pressure stable. He remains in atrial fibrillation, with controlled ventricular rate, antic oagulated with Eliquis. Labs today show sodium 135, creatinine 4.18, WBC 12.7, hemoglobin 8.3 platelets 40. He is on IV Lasix, low urine output 270 ml yesterday Continue systemic steroids of Decadron 6 daily, eyes receiving antimicrobial therapy with cefepime, and fluconazole. sedated with fentanyl. 06/24/2021 Patient is seen and evaluated continues to be closely monitored in the ICU. Patient is currently receiving hemodialysis with an attempt of 2 L removal as the goal is 3 although patient's blood pressure is not tolerating. Nephrology and pulmonary fishing vessel deckhand following closely. General surgery has been consulted for possible PEG and trach tube placement. Patient continues on Cleviprex along with fentanyl and propofol, IV dexamethasone, vitamin and zinc supplements, scheduled Reglan and IV cefepime. No reported bowel movements and patient not tolerating tube feeds with a large amount of residual noted in the NG. Chest x- ray today shows interval development of pneumomediastinum is suspected with arts and progression of subcutaneous emphysema. 06/25/2021 Patient is seen this morning in follow-up continues to be closely monitored in the ICU with multiple medical consultations following. Patient did not receive hemodialysis today and plan is scheduled for tomorrow with nephrology following closely. Eliquis remains on hold as general surgery plans for tracheostomy and PEG tube placement tomorrow. Patient continues to have no bowel movement and have ordered fleets enema and will continue with bowel regimen. Chest x-ray today shows continued extensive overlying subcutaneous emphysema with pneumomediastinum and bilateral compliant reticulonodular opacities related to COVID-19 infection again noted with no significant change from previous. Patient is maintained on IV cefepime along with Cleviprex, IV dexamethasone, fentanyl and propofol, scheduled Reglan and is also being started on sodium bicarb. 06/26/2021 Patient is seen and evaluated this morning continues to be on mechanical vent and intubated and sedated being closely monitored in the ICU. Multiple medical consultations following including general surgery and plan is for tracheostomy and PEG tube placement today. Eliquis has been on hold along with tube feeds and will discuss with surgery about initiating tube feeds and resuming anticoagulant. Per nursing staff patient had small amount of blood noted at the NG tube along with patient having a bowel movement with blood noted and hemoglo bin today is 7.9, platelets are 66. Patient also continues on IV cefepime along with IV dexamethasone, vitamin and zinc supplements and will continue. Patient maintained on Cleviprex along with fentanyl and propofol. Patient is scheduled to receive dialysis today with nephrology following closely. Chest x-ray today personally reviewed by me shows possible interval development of right-sided pn eumothorax although pneumothorax evaluation is limited due to extensive subcutaneous emphysema present bilaterally along with worsening right lower lobe consolidation, diffuse bilateral infiltrates. Pulmonary fishing vessel deckhand is following closely. 06/27/2021 Patient is seen and evaluated in follow-up today status post receiving tracheostomy and continues to be sedated on the vent and currently receiving hemodialysis today. Patient continues to be closely monitored in the ICU with multiple medical consultations following. Patient continues to have extensive swelling and edema with noted subcutaneous emphysema that continues to worsen. PEG tube was also attempted by surgery and unsuccessful given the abdominal wall thickening and extensive edema noted. NG tube to be replaced and will continue tube feedings via NG. Patient did receive hemodialysis yesterday and able to tolerate approximately 2-2-1/2 L although blood pressure continued to drop and will continue with 2 L per nephrology. Patient continues on IV cefepime along with Nimbex, IV dexamethasone, fentanyl and propofol. Patient also continues on vitamin and zinc supplements and Eliquis has been resumed. 06/28/2021 Patient is evaluated this morning and continues to be in the ICU being closely monitored. Multiple medical consultations following including nephrology. Patient has been receiving daily hemodialysis as he continues to have extensive volume overload and edema noted throughout including the scrotum. Facial s ubcutaneous emphysema has worsened and continues to show on chest xray. Patient is also having some nasal bleeding and eliquis has been placed on hold. Blood pressure is elevated and will start Cleviprex. Patient continues on IV cefepime as well. Labs: Sodium is 136, potassium is 4.2, BUN 47, creatinine is 3.88 to, WBC 5.8, hemoglobin is 7.8, platelets 169 Review of systems: Unable to complete a full review of symptoms as patient is sedated and on a ventilator via recent tracheostomy placement. Active Medications Acetaminophen (Acetaminophen Tab 325 Mg Tab) 650 mg PO Q6HR PRN PRN Reason: Fever and/ or Mild Pain Last Admin: 06/14/21 22:22 Dose: 650 mg Documented by: Albuterol Sulfate (Albuterol Hfa Inhaler) 2 puff INHALATION RT-QID [facility] Last Admin: 06/28/21 20:59 Dose: 2 puff Documented by: Albuterol Sulfate (Albuterol Hfa Inhaler) 2 puff INHALATION RT-QID PRN PRN Reason: Shortness Of Breath Or Wheezing Last Admin: 06/15/21 03:30 Dose: 2 puff Documented by: Amiodarone HCl (Amiodarone 200 Mg Tab) 200 mg PO BID [facility] Last Admin: 06/28/21 21:18 Dose: 200 mg Documented by: Artificial Tears (Artificial Tears-Hypromellose Drops 15 Ml Btl) 2 drops BOTH EYES Q4HR [facility] Last Admin: 06/29/21 03:06 Dose: Not Given Documented by: Ascorbic Acid (Ascorbic Acid 500 Mg Tab) 500 mg PO DAILY [facility] Last Admin: 06/28/21 09:27 Dose: 500 mg Documented by: Benzocaine/Menthol (Benzocaine/Menthol Lozeng 1 Each Lozenge) 1 each MUCOUS MEM Q4HR PRN PRN Reason: Sore Throat Bisacodyl (Bisacodyl 10 Mg Supp) 10 mg RECTAL DAILY [facility] Last Admin: 06/28/21 09:27 Dose: 10 mg Documented by: Calcium Acetate (Calcium Acetate 667 Mg Tab) 667 mg PO TID-W/MEALS [facility] Last Admin: 06/28/21 17:23 Dose: 667 mg Documented by: Chlorhexidine Gluconate (Chlorhexidine Gluconate 15 Ml Cup) 15 ml MUCOUS MEM BID [facility] Last Admin: 06/28/21 21:16 Dose: 15 ml Documented by: Cholecalciferol (Cholecalciferol 25 Mcg (1000 Iu) Tablet) 25 mcg PO DAILY [facility] Last Admin: 06/28/21 09:27 Dose: 25 mcg Documented by: Cyanocobalamin (Cyanocobalamin 500 Mcg Tab) 1,000 mcg PO DAILY [facility] Last Admin: 06/28/21 09:26 Dose: 1,000 mcg Documented by: Darbepoetin Shalom (Darbepoetin Shalom 40 Mcg/0.4 Ml Syringe) 40 mcg SQ Q7D [facility] Last Admin: 06/27/21 12:57 Dose: 40 mcg Documented by: Dexamethasone Sodium Phosphate (Dexamethasone Sod Phosphate 10 Mg/Ml 1 Ml Vial) 6 mg IV DAILY [facility] Last Admin: 06/28/21 09:27 Dose: 6 mg Documented by: Fluconazole (Fluconazole 100 Mg Tab) 100 mg PO DAILY [facility] Last Admin: 06/28/21 13:14 Dose: 100 mg Documented by: Propofol 1,000 mg/ IV Solution 100 mls @ 0 mls/hr IV .Q0M [facility]; Protocol Last Admin: 06/29/21 02:41 Dose: 50 mcg/kg/min, 36.36 mls/hr Documented by: Norepinephrine Bitartrate 8 mg (/ Sodium Chloride) 258 mls @ 9.482 mls/hr IV .Q24H [facility]; Protocol Last Admin: 06/28/21 16:57 Dose: Not Given Documented by: Cisatracurium Besylate 200 mg/ (Sodium Chloride) 200 mls @ 5.88 mls/hr IV .Q24H [facility]; Protocol Last Admin: 06/28/21 05:10 Dose: 3 mcg/kg/min, 17.64 mls/hr Documented by: Fentanyl Citrate 1,000 mcg/ (Sodium Chloride) 100 mls @ 2.765 mls/hr IV .Q24H [facility]; Protocol Last Admin: 06/28/21 14:00 Dose: 0.6 mcg/kg/hr, 6.636 mls/hr Documented by: Cefepime HCl 1 gm/ Sodium (Chloride) 50 mls @ 12.5 mls/hr IVPB HS [facility] Last Admin: 06/28/21 21:17 Dose: 12.5 mls/hr Documented by: Clevidipine 25 mg/ IV Solution 50 mls @ 2 mls/hr IV .Q24H [facility]; Protocol Last Titration: 06/29/21 03:02 Dose: 3 mg/hr, 6 mls/hr Documented by: Metoclopramide HCl (Metoclopramide 5 Mg/Ml 2 Ml Vial) 5 mg IVP Q8H [facility] Last Admin: 06/28/21 21:16 Dose: 5 mg Documented by: Metoprolol Tartrate (Metoprolol Tartrate 25 Mg Tab) 25 mg PO DAILY [facility] Last Admin: 06/28/21 09:27 Dose: 25 mg Documented by: Pantoprazole Sodium (Pantoprazole 40 Mg/10 Ml Vial) 40 mg IVP BID [facility] Last Admin: 06/28/21 21:15 Dose: 40 mg Documented by: Senna/Docusate Sodium (Sennosides-Docusate Sodium 1 Each Tab) 1 each PO DAILY [facility] Last Admin: 06/28/21 09:26 Dose: 1 each Documented by: Sodium Bicarbonate (Sodium Bicarbonate Tab 650 Mg Tab) 650 mg PO TID [facility] Last Admin: 06/28/21 21:18 Dose: 650 mg Documented by: Zinc Sulfate (Zinc Sulfate 220 Mg Cap) 220 mg PO DAILY [facility] Last Admin: 06/28/21 09:27 Dose: 220 mg Documented by: Physical exam: Gen: This is a 75-year-old male sedated and intubated on propofol and mechanical ventilation. Extensive edema and swelling noted throughout and more so in the face today. Temp is 98.9, pulse is 89, resp are 28, blood pressure is 159/93 arterial, and pulse ox is 88% on mechanical vent with an FI02 of 60% HEENT: Head is atraumatic, normocephalic. Pupils equal, round. Sclerae is anicteric. NG tube noted with blood surrounding the tube as well NECK: Supple. No JVD. No lymphadenopathy. No thyromegaly. Extensive subcutaneous emphysema of the face and neck traveling down the arms and continues in the chest LUNGS: Diminished breath sounds bilaterally with scattered coarse rhonchi and crackles noted at the bases. Extensive subcutaneous emphysema persists HEART: Irregular S1, S2 are muffled ABDOMEN: Soft. Edematous. obese. Hypoactive Bowel sounds are present. No masses. No guarding or rigidity noted. EXTREMITIES: Extensive pitting edema noted of upper and lower bilateral extremities and much of the body. Subcutaneous emphysema noted of bilateral upper extremities and up the neck and face NEUROLOGICAL: Patient is intubated and sedated Assessment: Acute COVID-19 infection with acute component of interstitial pneumonia, bilateral, possibly ARDS with acute hypoxic respiratory failure and possible sepsis secondary to COVID-19 Status post mechanical ventilation and intubation after failed BIPAP on 06/15/2021 secondary to above Status post tracheostomy placement Extensive Subcutaneous emphysema pneumomediastinum as noted on x-ray acute renal failure likely ATN with worsening kidney functions and minimal urine output requiring hemodialysis volume overload secondary to ARF metabolic acidosis afib with RVR currently rate controlled on oral amiodarone and metoprolol Lactic acidosis secondary to above Initial sputum culture showing Essence albicans and pseudomonas aeruginosa and maintained on IV cefepime repeat sputum culture showing aspergillus not fumigatus Oral candidiasis, sputum cultures from 06/02/2021 Essence albicans Extensive interstitial bilateral COVID-19 pneumonia Elevated white blood count possibly secondary to above Possible subsegmental pulmonary embolism ruled out History of atrial fibrillation Anxiety Remote history of nicotine dependence GI prophylaxis: Protonix DVT prophylaxis: On eliquis, placed on hold for nasal bleeding Full code Plan: Recommend to continue with current medications and continue to closely monitor in the ICU. Patient remains on mechanical ventilation and intubated. Patient received tracheostomy placement with surgery. Given extreme abdominal wall thickening and edema unsuccessful for PEG tube placement and have resumed NG tube and will continue tube feeds via NG tube. Patient continues on IV cefepime with ID following closely as well. repeat sputum culture showing aspergillus not fumigatus. Patient continues on vitamin and zinc supplements IV dexamethasone and will continue. Patient has completed Baricitinib. Patient with extensive volume overload and has been receiving daily hemodialysis with nephrology following closely. Blood pressure elevated and being started on Cleviprex. Eliquis on hold as there is now some nasal bleeding. Will repeat a.m. labs. Prognosis is extremely guarded and will continue to monitor closely. Objective - Vital Signs Vital signs: Vital Signs Temp 98.9 F 06/28/21 08:00 Pulse 92 06/28/21 09:00 Resp 36 H 06/28/21 09:00 BP 159/93 06/28/21 09:00 Pulse Ox 88 L 06/28/21 09:00 Intake & Output 06/27/21 06/28/21 06/28/21 18:59 06:59 18:59 Intake Total 1358.634 5686.263 129 Output Total 15 10 Balance 7695.885 3346.263 129 Weight 123 kg Intake: IV 276 276 69 0.9 240 240 60 Pressure bag 36 36 9 Intake, IV Titration 556.510 461.263 Amount Cisatracurium 200 mg In 200 181.104 Sodium Chloride 0.9% 180 ml @ 1 MCG/KG/MIN 5.88 mls/hr IV .Q24H [facility] Rx#: [id number] fentaNYL (PF). 1,000 mcg 89.254 90.471 In Sodium Chloride 0.9% 80 ml @ 0.25 MCG/KG/HR 2. 765 mls/hr IV .Q24H [facility] Rx#:[id number] propofoL 1,000 mg In 267.256 189.688 Empty Bag 1 bag @ Titrate IV .Q0M [facility] Rx#: [id number] Tube Feeding 230 340 60 Other 240 90 Output: Urine 15 10 Other: Voiding Method Indwelling Catheter Indwelling Catheter Indwelling Catheter ABP, PAP, CO, CI - Last Documented Arterial Blood Pressure 163/66 - Labs CBC & Chem 7: 06/28/21 04:00 06/28/21 04:00 Labs: Abnormal Lab Results - Last 24 Hours (Table) 06/27/21 06/27/21 06/28/21 Range/Units 04:20 18:03 04:00 RBC 2.63 L (4.30-5.90) m/uL Hgb 7.8 L (13.0-17.5) gm/dL Hct 23.4 L (39.0-53.0) % RDW 16.1 H (11.5-15.5) % Lymphocytes # 0.4 L (1.0-4.8) k/uL ABG pH (7.35-7.45) ABG pO2 (83-108) mmHg ABG O2 Saturation (94-97) % POC Glucose (mg/dL) 102 H (75-99) mg/dL Iron 39 L (65-175) ug/dL TIBC 164 L (228-460) ug/dL Transferrin 117.0 L (204.0-354.0) mg/dL Ferritin 1009.0 H (22.0-322.0) ng/mL 06/28/21 Range/Units 05:25 RBC (4.30-5.90) m/uL Hgb (13.0-17.5) gm/dL Hct (39.0-53.0) % RDW (11.5-15.5) % Lymphocytes # (1.0-4.8) k/uL ABG pH 7.31 L (7.35-7.45) ABG pO2 67 L (83-108) mmHg ABG O2 Saturation 92.7 L (94-97) % POC Glucose (mg/dL) (75-99) mg/dL Iron (65-175) ug/dL TIBC (228-460) ug/dL Transferrin (204.0-354.0) mg/dL Ferritin (22.0-322.0) ng/mL
[2021-06-29] MEDS: METOCLOPRAMIDE 5 MG/ML 2 ML VIAL IVP SCH ×3 (04:51→20:29)
[2021-06-29] MEDS: fentaNYL (PF). 1,000 MCG in SODIUM CHLORIDE 0.9% 80 ML IV SCH ×2 (04:53→18:31)
[2021-06-29] MEDS: CISATRACURIUM 200 MG in SODIUM CHLORIDE 0.9% 180 ML IV SCH ×2 (05:01→15:49)
[2021-06-29 06:06] LABS: ABG Base Excess 1.8 mmol/L; ABG HCO3 28 mmol/L (21-25); ABG Oxygen Saturation 93.8 % (94-97); ABG PCO2 59 mmHg (35-45); ABG PH 7.29 (7.35-7.45); ABG PO2 71 mmHg (83-108); ABG TCO2 30 mmol/L (19-24); Allen Test Performed? Yes
[2021-06-29 06:25] LABS: Glucose,Whole Blood 112 mg/dL (75-99)
[2021-06-29] MEDS: ALBUTEROL HFA INHALER INHALATION SCH ×4 (07:56→20:16)
[2021-06-29 08:29] LABS: Anisocytosis Slight; Basophils % (A) 0 %; Eosinophils # (A) 0.2 k/uL (0-0.7); Eosinophils % (A) 3 %; HCT 24.4 % (39.0-53.0); Lymphocytes # (A) 0.4 k/uL (1.0-4.8); Lymphocytes % (A) 8 %; MCH 29.3 pg (25.0-35.0); MCHC 32.6 g/dL (31.0-37.0); MCV 89.9 fL (80.0-100.0); Mean Platelet Volume 9.9; Monocytes # (A) 0.2 k/uL (0-1.0); Monocytes % (A) 4 %; Neutrophils # (A) 4.2 k/uL (1.3-7.7); Neutrophils % (A) 83 %; Platelet Count 268 k/uL (150-450); RBC 2.72 m/uL (4.30-5.90); RDW 16.3 % (11.5-15.5); WBC 5.1 k/uL (3.8-10.6)
[2021-06-29 08:32] LABS: Calcium 7.9 mg/dL (8.4-10.2); Potassium 3.8 mmol/L (3.5-5.1)
[2021-06-29] MEDS: AMIODARONE 200 MG TAB PO SCH ×2 (08:52→20:29)
[2021-06-29] MEDS: CHLORHEXIDINE GLUCONATE 15 ML CUP MUCOUS MEM SCH ×2 (08:52→20:29)
[2021-06-29] MEDS: METOPROLOL TARTRATE 25 MG TAB PO SCH (08:53)
[2021-06-29] MEDS: DEXAMETHASONE SOD PHOSPHATE 10 MG/ML 1 ML VIAL IV SCH (08:53)
[2021-06-29] MEDS: bisacodyL 10 MG SUPP RECTAL SCH (08:53)
[2021-06-29] MEDS: PANTOPRAZOLE 40 MG/10 ML VIAL IVP SCH ×2 (08:53→20:29)
[2021-06-29] MEDS: CALCIUM ACETATE 667 MG TAB PO SCH ×3 (08:53→16:36)
[2021-06-29] MEDS: FLUCONAZOLE 100 MG TAB PO SCH (08:54)
[2021-06-29] MEDS: CHOLECALCIFEROL 25 MCG (1000 IU) TABLET PO SCH (08:54)
[2021-06-29] MEDS: SODIUM BICARBONATE TAB 650 MG TAB PO SCH ×3 (08:54→21:56)
[2021-06-29] MEDS: CYANOCOBALAMIN 500 MCG TAB PO SCH (08:54)
[2021-06-29] MEDS: ASCORBIC ACID 500 MG TAB PO SCH (08:54)
[2021-06-29] MEDS: SENNOSIDES-DOCUSATE SODIUM 1 EACH TAB PO SCH (08:54)
[2021-06-29] MEDS: ZINC SULFATE 220 MG CAP PO SCH (08:54)
[2021-06-29 12:00] LABS: Glucose,Whole Blood 111 mg/dL (75-99)
--- NOTE | 2021-06-29 12:01 | P.PN ---
Subjective Progress Note Date: 06/29/21 Principal diagnosis: COVID-19 pneumonia The patient is seen today 06/19/2021 in follow-up in the intensive care unit. He remains intubated and on the mechanical ventilator. Current settings are assist-control rate of 36, tidal volume 430, FiO2 50% and a PEEP of 14. Morning blood gases revealed a pO2 of 60, pCO2 of 51, pH 7.27. He remains sedated on propofol at 50 mcg/kg/m, paralyzed with Nimbex at 1.5 mcg/kg/m. He is on fentanyl at 0.5 mcg/kg/hr. Amiodarone drip at 0.5 mg/m. Lasix drip at 10 mg per hour. D5W with 3 A of sodium bicarbonate 150 MLS per hour. Remains on cefepime and Diflucan. Anticoagulated with Eliquis. He remains on Decadron 6 mg IV daily. Vitamin supplements. Chest x-ray continues to show few scattered lung infiltrates. Stable compared to previous. Left central line in place. Endotracheal tube and gastric tubes in good position. Sputum culture from 06/02/2021 was positive for pseudomonas aeruginosa and Essence. Follow up cultures reveal no growth. Blood cultures reveal no growth. White count 16.0. Hemoglobin 10.4. Platelet count 71,000. Lymphocytes 0.4. D-dimer 10.4 seconds. Sodium 135. Potassium 4.4. Bicarb 22. BUN 75. Creatinine 4.63. LDH 1095. Blood glucose 151. The patient is seen today 06/20/2021, the intensive care unit. He remains intubated and on mechanical ventilator. Current mode of assist control with a respiratory rate of 36, tidal volume 450, FiO2 55% and a PEEP of 16. Morning blood gases on 60% FiO2 revealed a PaO2 of 77, pCO2 45, pH 7.29. Peak airway pressures 38, plateau pressure 36. He remains on fentanyl at 0.5 mcg/kg per hour, Lasix drip at 10 mg per hour, propofol at 50 mcg/g/m, Nimbex at 2mcg/kg/min. 0.9 normal saline at 10 MLS per hour. He remains on cefepime and Diflucan. He is currently in atrial fibrillation with controlled ventricular rate. Chest x-ray continues to show diffuse bilateral interstitial airspace disease. More focal left basilar consolidation also persists. Small left pleural effusion. No appreciable pneumothorax. Increasing subcutaneous emphys ingris at the base of the left neck and along the chest bilaterally. Follow-up sputum culture revealed no growth. Blood cultures reveal no growth. White count 11.9. Hemoglobin 9.6. Platelet count 61,000. Lymphocytes 0.4. D-dimer 8.4. Sodium 135. Potassium 5.0. Bicarb 21. Creatinine 5.23. BUN 99. Glucose 115. LDH 1015. He is continued on Decadron, and Eliquis, vitamin supplements. He is to receive a hemodialysis catheter today. Tube feedings currently on hold due to high residuals. Patient seen today 06/21/2021 in follow-up in the intensive care unit. He remains intubated and on mechanical ventilator. Current settings assist-control mode, respiratory rate 36, tidal volume 450, FiO2 50% and a PEEP of 16. Morning blood gases reveal a pO2 of 66, pCO2 42, pH 7.32. Chest x-ray continues to show bilateral patchy opacities along with subcutaneous emphysema which is a bit worse. 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 No clear evidence of pneumothorax. He did receive hemodialysis yesterday with 1 L removed. Plan is for hemodialysis again today. He remains in atrial fibrillation. Anticoagulated with Eliquis. Remains on antibiotics in the form of cefepime. He is also sedated on propofol 50 mcg/kg/m, paralyzed and Nimbex at 2 mcg/kg/m, fentanyl 5 mcg/mg/h. Initial sputum culture was positive for Pseudomonas and Essence. Follow-up sputum culture reveals no growth. Culture reveals no growth. White count 10.5. Hemoglobin 9.6. Platelet count 49,000. D-dimer 8.41. Sodium 134. Potassium 5.0. BUN 91. Creatinine 5.06. Glucose 94. LDH 842. C-reactive protein 3.8. Remains on Decadron. IV diuretics. Vitamin supplements. The patient is seen today 06/25/2021 in follow-up in the intensive care unit. He remains intubated, sedated, paralyzed. Currently in assist-control mode at a rate of 36, tidal volume 450, FiO2 50% and a PEEP of 14. Morning blood gases reveal pO2 of 62, pCO2 37, pH 7.33. He has 0.9 normal saline at 20 ML's per hour. Propofol 50 mcg/kg/m. Nimbex at 3 mcg/kg/m. Fentanyl 0.6 mcg/kg/hr. Vital AF at 15 ML's per hour. Chest x-ray continues to show extensive overlying subcutaneous emphysema with pneumomediastinum and bilateral confluent reticulonodular opacities secondary to COVID-19 infection. No significant change compared to yesterday. Sputum culture PVCs had revealed pseudomonas aeruginosa. More recently from 06/22/2021 Aspergillus not fumigatus. D-dimer 6.90. Sodium 133. Potassium 4.7. Bicarb 18. Creatinine 4.31. LDH 605. C- reactive protein 7.7. CBC is pending. He remains on cefepime and Diflucan. Continued on Decadron. Eliquis on hold. Remains on bronchodilators, vitamin supplements. The patient is seen today 06/26/2021 in follow-up in the intensive care unit. He remains intubated and on the mechanical ventilator. Then assist-control mode. Rate of 36, tidal volume 450, FiO2 50% and a PEEP of 14. Arterial blood gases reveal pO2 of 69, pCO2 37, pH 7.29. He remains on propofol at 50 mcg/k g/m. Nimbex at 3 mcg/kg/m. Fentanyl 0.6 mcg/kg per hour. Tube feedings are currently on hold. The plan is for tracheostomy and PEG tube placements today. Today's chest x-ray shows possible interval development of a right-sided tiny pneumothorax. Pneumothorax evaluation is limited due to the extensive subcutaneous emphysema seen bilaterally secondary to pneumomediastinum. Worsening right lower lobe consolidation. Diffuse bilateral lung infiltrates. Follow-up sputum culture positive for Aspergillus not fumigatus. Previous sputum culture was positive for pseudomonas. White count 8.4. Hemoglobin 7.9. Platelet count 66,000. Lymphocytes 0.3. Sodium 134. Potassium 5.2. Bicarb 16. BUN 83. Creatinine 5.26. Glucose 88. He remains on cefepime. Continued on Decadron. Bronchodilators, vitamin supplements. The patient is seen today 06/27/2021 in follow-up in the intensive care unit. He did undergo tracheostomy tube placement on 06/26/2021. PEG tube was unable to be placed. NG tube remains in place. He is on mechanical ventilator at assist control mode with a rate of 36, tidal volume 450, FiO2 60% and a PEEP of 14. Morning blood gases reveal pO2 of 76, pCO2 39, pH 7.32. Sedated on propofol at 50 mcg/kg/m. Paralyzed with Nimbex at 3 mcg/kg/m. Fentanyl drip at 0.6 mcg/kg per hour. He is being nourished with vital HPI 15 ML's per hour with a goal of 30 ML's per hour. 0.9 normal saline at 20 ML's per hour. He did receive hemodialysis yesterday with 2.4 L removed. He remains on a significant amount of upper chest neck and face subcutaneous emphysema from pne umomediastinum. Chest x-ray continues to show bilateral patchy infiltrates. White count 6.5. Hemoglobin 7.4. Platelet count 96,000. Lymphocytes 0.4. Sodium 134. Potassium 4.4. Bicarb 19. Creatinine 4.12. AST 19. ALT 19. Most recent pro-calcitonin 3.12. D-dimer 6.9. Eliquis be resumed today. He remains on cefepime. Continued on Decadron and vitamin supplements. Remains on bronchodilators. The patient is seen today 06/28/2021 in follow-up in the intensive care unit. He remains on the mechanical ventilator currently in assist-control mode at a rate of 36, tidal volume 450, FiO2 60% and a PEEP of 14. Morning blood gases reveal a pO2 of 66, pCO2 43, pH 7.31. Chest x-ray continues to show extensive overlying subcutaneous emphysema with pneumomediastinum and bilateral confluent reticulonodular opacities related to COVID-19 and/or ARDS. He remains sedated on propofol at 50 mg/kg/m, Nimbex at 3 mcg/kg/m, fentanyl at 0.6 mcg/kg/h. 0.9 normal saline at 20 ML's per hour. Tracheostomy tube is secured in place. NG tube remains in place. Unable to place a PEG tube. He is somewhat hypertensive. The plan is to start some Cleviprex today. He is also having issues with blood oozing from his nose. He is on Eliquis 5 mg by mouth twice a day. Antibiotics in the form of cefepime. Decadron 6 mg daily, vitamin supplements. White count 5.8. Hemoglobin 7.8. Platelet count 169. Other labs pending. The patient is seen today 06/29/2021 in follow-up in the intensive care unit. He remains on a mechanical ventilator and assist control mode with a rate of 36, tidal volume 400, FiO2 70% and a PEEP of 14. Morning blood gases reveal a P O2 of 71, pCO2 59, pH 7.29. These were on 80% FiO2. He remains sedated on propofol 50 mcg/kg/m. Fentanyl and 0.6 mg/kg/h. Nimbex at 3 mcg/kg/m. 0.9 normal saline at 20 ML's per hour. The Cleviprex is off. He is being nourished with vital HP at 30 MLS per hour which is his goal. He continues with significant upper chest neck and facial subcutaneous emphysema secondary to pneumomediastinum. white count 5.1. Hemoglobin 8.0. Platelets 268. Sodium 136. Potassium 3.8. Bicarb 25. Creatinine 2.77. He remains on cefepime. Bronchodilators. IV Decadron. Vitamin supplements. He has been off anticoagulants due to epistaxis. No further epistaxis noted. He is receiving [employer] today again. GFR up to 22. Objective - Vital Signs Vital signs: Vital Signs Temp 97.7 F 06/29/21 08:00 Pulse 111 H 06/29/21 10:30 Resp 36 H 06/29/21 10:30 BP 159/93 06/29/21 07:30 Pulse Ox 90 L 06/29/21 10:30 Intake & Output 06/28/21 06/29/21 06/29/21 18:59 06:59 18:59 Intake Total 736 1156.399 494.167 Output Total 3250 40 0 Balance -2514 1116.399 494.167 Weight 123 kg 116.8 kg Intake: IV 276 276 115 0.9 240 240 100 Pressure bag 36 36 15 Intake, IV Titration 400 460.399 109.167 Amount Cisatracurium 200 mg In 200 Sodium Chloride 0.9% 180 ml @ 1 MCG/KG/MIN 5.88 mls/hr IV .Q24H [facility] Rx#: [id number] Clevidipine Butyrate 25 61.633 9.167 mg In Empty Bag 1 bag @ 1 MG/HR 2 mls/hr IV .Q24H [facility] Rx#:[id number] fentaNYL (PF). 1,000 mcg 100 98.766 In Sodium Chloride 0.9% 80 ml @ 0.25 MCG/KG/HR 2. 765 mls/hr IV .Q24H [facility] Rx#:[id number] propofoL 1,000 mg In 100 300 100 Empty Bag 1 bag @ Titrate IV .Q0M [facility] Rx#: [id number] Tube Feeding 60 330 150 Other 90 120 Output: Urine 40 0 Hemodialysis 3250 Other: Voiding Method Indwelling Catheter Indwelling Catheter ABP, PAP, CO, CI - Last Documented Arterial Blood Pressure 119/44 - Exam GENERAL EXAM: Sedated, paralyzed 75-year-old gentleman, tracheostomy tube placed, on mechanical ventilator, comfortable in no apparent distress. HEAD: Normocephalic. EYES: Sluggish reaction of pupils, equal size. NOSE: Nasogastric tube in place. There no further epistaxis in the past 24 hours. THROAT: No erythema or exudates. NECK: Tracheostomy tube secured in place. No masses, no JVD. CHEST: No chest wall deformity. Significant subcutaneous emphysema on chest, neck, face. LUNGS: Equal air entry with bilateral scattered rhonchi or crackles in the posterior. CVS: S1 and S2 normal with no audible murmur, irregular rhythm. ABDOMEN: No hepatosplenomegaly, normal bowel sounds, no guarding or rigidity. SPINE: No scoliosis or deformity SKIN: No rashes CENTRAL NERVOUS SYSTEM: Sedated, paralyzed, tone is normal in all 4 extremities. EXTREMITIES: There is 1-2+ peripheral edema. No clubbing, no cyanosis. Peripheral pulses are intact. - Labs CBC & Chem 7: 06/29/21 08:00 06/29/21 08:00 Labs: Abnormal Lab Results - Last 24 Hours (Table) 06/28/21 06/29/21 06/29/21 Range/Units 17:30 00:39 06:00 RBC (4.30-5.90) m/uL Hgb (13.0-17.5) gm/dL Hct (39.0-53.0) % RDW (11.5-15.5) % Lymphocytes # (1.0-4.8) k/uL ABG pH 7.29 L (7.35-7.45) ABG pCO2 59 H (35-45) mmHg ABG pO2 71 L (83-108) mmHg ABG HCO3 28 H (21-25) mmol/L ABG Total CO2 30 H (19-24) mmol/L ABG O2 Saturation 93.8 L (94-97) % Sodium (137-145) mmol/L BUN (9-20) mg/dL Creatinine (0.66-1.25) mg/dL Glucose (74-99) mg/dL POC Glucose (mg/dL) 140 H 130 H (75-99) mg/dL Calcium (8.4-10.2) mg/dL 06/29/21 06/29/21 06/29/21 Range/Units 06:24 08:00 08:00 RBC 2.72 L (4.30-5.90) m/uL Hgb 8.0 L (13.0-17.5) gm/dL Hct 24.4 L (39.0-53.0) % RDW 16.3 H (11.5-15.5) % Lymphocytes # 0.4 L (1.0-4.8) k/uL ABG pH (7.35-7.45) ABG pCO2 (35-45) mmHg ABG pO2 (83-108) mmHg ABG HCO3 (21-25) mmol/L ABG Total CO2 (19-24) mmol/L ABG O2 Saturation (94-97) % Sodium 136 L (137-145) mmol/L BUN 38 H (9-20) mg/dL Creatinine 2.77 H (0.66-1.25) mg/dL Glucose 106 H (74-99) mg/dL POC Glucose (mg/dL) 112 H (75-99) mg/dL Calcium 7.9 L (8.4-10.2) mg/dL Assessment and Plan Assessment: 1 Acute hypoxemic respiratory failure secondary to coronavirus associated pneumonia. Unvaccinated. The patient had developed diffuse bilateral pulmonary infiltrates secondary to COVID-19 related pneumonia/ARDS. Subsequently the patient failed BiPAP therapy and he was intubated on 06/15/2021, currently sedated and paralyzed on a mechanical ventilator. Tracheostomy tube placed on 06/26/2021. Unable to place a PEG tube. Chest x-ray was noted. Pneumomediastinum with significant subcutaneous emphysema continues secondary to pneumomediastinum. 2 Acute COVID-19 related pneumonia with diffuse but the pulmonary infiltrates and diffuse groundglass pulmonary changes 3 Elevated inflammatory markers secondary to above 4 Acute renal failure with creatinine up to 2.77, GFR 22. Renal replacement therapy started 06/20/2021 5 History of chronic atrial fibrillation with recent RVR. On oral amiodarone. Eliquis resumed 06/27/2021. On hold 06/28/2021 due to epistaxis. 6 Elevated pro calcitonin, currently on cefepime 7 Pseudomonas and yeast in the sputum, likely secondary to immunosuppression provided by Solu-Medrol and Baricitinib. Follow-up sputum culture from 06/22/2021 now revealing aspergillus not fumigatus. 8 Extensive oropharyngeal candidiasis, currently on Diflucan 9 Leukocytosis, recovered 10 Hypotension. Recovered and off pressors currently 11 Epistaxis, Eliquis on hold Plan: The patient was seen and evaluated by Dr. Raina Steve with significant subcutaneous emphysema secondary to pneumomediastinum Tracheostomy placed on 06/26/[address] a PEG tube Eliquis on hold 06/28/2021 due to epistaxis Tube feeds resumed via NG tube Cleviprex for hypertension discontinued Continued on cefepime, Decadron, vitamin supplements We'll start to wean the Decadron currently down to 4 mg IV daily Overall prognosis remains quite guarded We'll continue to follow and make further recommendations based on his clinical status Critical care time 36 minutes I, the cosigning physician, performed a history & physical examination of the patient. Lungs sounds with posterior crackles in the bases, bilateral scattered rhonchi. Maintaining O2 saturations in the 90s on 70% FiO2 with a PEEP of 14 via the mechanical ventilator. I discussed the assessment and plan of care with my nurse practitioner, Mar Ruelas. I attest to the above note as dictated by her .
[2021-06-29] MEDS: CLEVIDIPINE BUTYRATE 25 MG in EMPTY BAG 1 BAG IV SCH ×2 (12:04→20:53)
--- NOTE | 2021-06-29 12:06 | PN ---
PROGRESS NOTE Patient is seen for followup for acute kidney injury. He currently remains on dialysis. We had about 3.2 L of ultrafiltration yesterday. Patient is currently seen on dialysis. Blood pressure has just dropped to low 90s to high 80s. It had been higher previously. Patient did get metoprolol this morning. On examination today, heart rate 111 per minute. He is afebrile. Blood pressure initially 119/44, currently 89/55. Examination shows edema 3+ bilaterally, upper and lower extremities, with scrotal edema noted as well. Abdomen is soft, obese. Patient is sedated and on the vent. Labs show sodium 136, potassium 3.8, chloride 100, BUN 38, creatinine 2.7, hemoglobin 8.0 g/dL. ASSESSMENT: 1. Acute kidney injury, acute tubular necrosis, currently oliguric and dialysis- dependent, maintained on daily treatments. We will hold off on dialysis tomorrow and plan again on Thursday. 2. Volume overload, receiving daily ultrafiltration. 3. Acute hypoxic respiratory failure secondary to COVID pneumonia and volume overload, currently on the vent. 4. Atrial fibrillation with rapid ventricular response, maintained on oral amiodarone. 5. Metabolic acidosis associated with renal failure, now improved. PLAN: Continue dialysis treatment. Goal UF of about 2 to 2.5 L as tolerated. Depending on the blood pressure, will hold treatment tomorrow and plan again on Thursday as long as oxygenation remains stable. MMODL / IJN: [id number] /
--- NOTE | 2021-06-29 14:04 | P.PN ---
Subjective Progress Note Date: 06/29/21 CHIEF COMPLAINT: Covid pneumonia HISTORY OF PRESENT ILLNESS: The patient is a 75-year-old male admitted with pneumonia due to Covid. He is mechanically ventilated. Currently, patient pending gastrostomy tube placement. Prior attempt limited due to patient's body habitus. REVIEW OF ORGAN SYSTEMS: No fevers or chills. Mechanically ventilated. Morbid obesity with BMI 38.0 PHYSICAL EXAM: VITAL SIGNS: Stable GENERAL: Well-developed pleasant in no acute distress. HEENT: No scleral icterus. Extraocular movements grossly intact. Moist buccal mucosa. Tracheostomy intact CHEST: Mechanical ventilation with equal bilateral excursions. CARDIOVASCULAR: 2+ pulses ABDOMEN: Protuberant. No peritonitis. MUSCULOSKELETAL: No clubbing, cyanosis. NEURO: Sedated SKIN: Well perfused. PSYCH: sedated. LABS: Reviewed. WBC normal at 5.1-5.8. Hemoglobin stable 7.8-8.0 with anemia ASSESSMENT: 1. Covid pneumonia 2. Inadequate oral intake with protein malnutrition 3. Status post gastrostomy tube placement 4. Status post tracheostomy 5. Morbid obesity due to excess calories, BMI 38.0 6. Anemia PLAN: 1. Continue supportive care due to Covid pneumonia 2. May reattempt gastrostomy tube placement 3. Continue TPN Objective - Vital Signs Vital signs: Vital Signs Temp 97.7 F 06/29/21 08:00 Pulse 111 H 06/29/21 10:30 Resp 36 H 06/29/21 10:30 BP 159/93 06/29/21 07:30 Pulse Ox 90 L 06/29/21 10:30 Intake & Output 06/28/21 06/29/21 06/29/21 18:59 06:59 18:59 Intake Total 736 1156.399 162.167 Output Total 3250 40 Balance -2514 1116.399 162.167 Weight 123 kg 116.8 kg Intake: IV 276 276 23 0.9 240 240 20 Pressure bag 36 36 3 Intake, IV Titration 400 460.399 109.167 Amount Cisatracurium 200 mg In 200 Sodium Chloride 0.9% 180 ml @ 1 MCG/KG/MIN 5.88 mls/hr IV .Q24H [facility] Rx#: [id number] Clevidipine Butyrate 25 61.633 9.167 mg In Empty Bag 1 bag @ 1 MG/HR 2 mls/hr IV .Q24H [facility] Rx#:[id number] fentaNYL (PF). 1,000 mcg 100 98.766 In Sodium Chloride 0.9% 80 ml @ 0.25 MCG/KG/HR 2. 765 mls/hr IV .Q24H [facility] Rx#:[id number] propofoL 1,000 mg In 100 300 100 Empty Bag 1 bag @ Titrate IV .Q0M [facility] Rx#: [id number] Tube Feeding 60 330 30 Other 90 Output: Urine 40 Hemodialysis 3250 Other: Voiding Method Indwelling Catheter Indwelling Catheter ABP, PAP, CO, CI - Last Documented Arterial Blood Pressure 119/44 - Labs CBC & Chem 7: 06/29/21 08:00 06/29/21 08:00 Labs: Abnormal Lab Results - Last 24 Hours (Table) 06/28/21 06/29/21 06/29/21 Range/Units 17:30 00:39 06:00 RBC (4.30-5.90) m/uL Hgb (13.0-17.5) gm/dL Hct (39.0-53.0) % RDW (11.5-15.5) % Lymphocytes # (1.0-4.8) k/uL ABG pH 7.29 L (7.35-7.45) ABG pCO2 59 H (35-45) mmHg ABG pO2 71 L (83-108) mmHg ABG HCO3 28 H (21-25) mmol/L ABG Total CO2 30 H (19-24) mmol/L ABG O2 Saturation 93.8 L (94-97) % Sodium (137-145) mmol/L BUN (9-20) mg/dL Creatinine (0.66-1.25) mg/dL Glucose (74-99) mg/dL POC Glucose (mg/dL) 140 H 130 H (75-99) mg/dL Calcium (8.4-10.2) mg/dL 06/29/21 06/29/21 06/29/21 Range/Units 06:24 08:00 08:00 RBC 2.72 L (4.30-5.90) m/uL Hgb 8.0 L (13.0-17.5) gm/dL Hct 24.4 L (39.0-53.0) % RDW 16.3 H (11.5-15.5) % Lymphocytes # 0.4 L (1.0-4.8) k/uL ABG pH (7.35-7.45) ABG pCO2 (35-45) mmHg ABG pO2 (83-108) mmHg ABG HCO3 (21-25) mmol/L ABG Total CO2 (19-24) mmol/L ABG O2 Saturation (94-97) % Sodium 136 L (137-145) mmol/L BUN 38 H (9-20) mg/dL Creatinine 2.77 H (0.66-1.25) mg/dL Glucose 106 H (74-99) mg/dL POC Glucose (mg/dL) 112 H (75-99) mg/dL Calcium 7.9 L (8.4-10.2) mg/dL Assessment and Plan (1) Tracheostomy status Current Visit: Yes Status: Acute Code(s): Z93.0 - TRACHEOSTOMY STATUS SNOMED Code(s): 396932565 (2) Inadequate dietary intake of protein Current Visit: Yes Status: Acute Code(s): E63.9 - NUTRITIONAL DEFICIENCY, UNSPECIFIED SNOMED Code(s): 602810090 (3) Difficulty liberating from mechanical ventilation Current Visit: Yes Status: Acute Code(s): Z99.11 - DEPENDENCE ON RESPIRATOR [VENTILATOR] STATUS SNOMED Code(s): 959551604 (4) Acute and chronic respiratory failure with hypoxia Current Visit: Yes Status: Acute Code(s): J96.21 - ACUTE AND CHRONIC RESPIRATORY FAILURE WITH HYPOXIA SNOMED Code(s): 04711794 (5) COVID Current Visit: Yes Status: Acute Code(s): U07.1 - COVID-19 SNOMED Code(s): 722174589
[2021-06-29] MEDS: NOREPINEPHRINE 8 MG in SODIUM CHLORIDE 0.9% 250 ML IV SCH (16:37)
--- NOTE | 2021-06-29 17:48 | PN ---
PROGRESS NOTE DATE OF SERVICE: 06/29/2021 REASON FOR FOLLOWUP: Pneumonia. INTERVAL HISTORY: The patient is currently afebrile. The patient is hemodynamically stable. FiO2 is currently 70%. No significant purulent secretions through the ET or any other changes reported by the nursing staff. PHYSICAL EXAMINATION: Blood pressure 118/72 with a pulse of 71. Temperature 97.4. He is 97% on 90% FIO2. General description is an elderly male, intubated on the vent. Respiratory system: Unlabored breathing, decreased intensity of breath sounds. No wheeze. Heart S1, S2. Regular rate and rhythm. Abdomen: Soft. No tenderness. LABS: Hemoglobin is 8, white count 5.1, creatinine is 2.77. DIAGNOSTIC IMPRESSION AND PLAN: Patient with acute respiratory failure which is multifactorial in this patient who did have Covid 19 pneumonia, subsequently component of pneumonia for which the patient being treated with cefepime. Previous culture positive for Pseudomonas. Repeat urine is showing aspergillus not possible colonization. Clinically not behaving as pneumonia with no fever and white count normalized. Continue supportive care. Family at the bedside. Questions and concerns were answered. MMODL / IJN: [id number] /
[2021-06-29 18:01] LABS: Glucose,Whole Blood 121 mg/dL (75-99)
[2021-06-29] MEDS: CEFEPIME 1 GM in SODIUM CHLORIDE 0.9% 50 ML IVPB SCH (20:29)
[2021-06-29] MEDS: VORICONAZOLE IVPB SCH (21:24)
[2021-06-29] MEDS: SODIUM CHLORIDE 0.9% IVPB SCH (21:24)
--- NOTE | 2021-06-29 21:39 | PN ---
PROGRESS NOTE DATE OF SERVICE: 06/29/2021 This 75-year-old gentleman who was admitted with acute COVID-19 infection also had multiple complications, including acute hypoxic respiratory failure and change in mental status. Patient also had tracheostomy. Patient has extensive subcutaneous emphysema and pneumomediastinum also. Multiple consultants are following the patient closely. The patient is on PEEP of 14 and FiO2 of 70%. The most recent chest x-ray was reviewed and Dr. Paris saw the patient today. The patient is unable to have a PEG tube placed at this time. Past medical history reviewed. Review of systems could not be taken. CURRENT MEDICATIONS: Reviewed. They include Tylenol, Ventolin, Cordarone, Artificial Tears, vitamin C, Cepacol, dulcolax. PHYSICAL EXAMINATION: Patient is on mechanical ventilation. Pulse 73, blood pressure 150/90, respiration 37, temperature 97.4, pulse ox 94% on 70% FiO2 HEENT: Conjunctivae normal. NECK: No jugular venous distention. Otherwise, significant surgical emphysema present. CARDIOVASCULAR: S1, S2 muffled. RESPIRATION: Breath sounds diminished at the bases. A few scattered rhonchi. ABDOMEN: Soft. NERVOUS SYSTEM: Patient is mechanically ventilated and sedated. LAB STUDIES: WBC 5.2, hemoglobin is 8, sodium ntd. ASSESSMENT: 1. Acute COVID-19 infection with acute bilateral interstitial pneumonia with acute hypoxic respiratory failure, on mechanical ventilation with ARDS possibly and sepsis secondary to COVID-19. 2. Status post tracheostomy. 3. Extensive subcutaneous emphysema with pneumomediastinum. 4. Inability to place a PEG tube. 5. Acute renal failure, acute tubular necrosis, on hemodialysis. 6. Volume overload secondary to acute renal failure. 7. Acute metabolic acidosis. 8. Atrial fibrillation with rapid ventricular rate. 9. Lactic acidosis. 10.Initial sputum showing Essence albicans and Pseudomonas aeruginosa. Repeat sputum culture showed Aspergillus, not fumigatus. 11.Oral candidiasis. 12.Extensive interstitial bilateral COVID-19 pneumonia. 13.Elevated white count. 14.Possible subsegmental pulmonary embolism ruled out. 15.History of atrial fibrillation. 16.Anxiety. 17.Remote history of nicotine dependence. RECOMMENDATIONS AND DISCUSSION: I recommend to continue current medications, continue with symptomatic treatment. Hemodialysis being continued. The patient is on bronchodilators. The patient is on broad-spectrum IV antibiotics. Infectious Disease is following the patient closely with Nephrology and Pulmonology. The patient is on Diflucan also. Prognosis is guarded because of multiple complex medical issues. Further recommendations to follow. MMODL / IJN: [id number] / NEELAM
[2021-06-30] MEDS: ARTIFICIAL TEARS-HYPROMELLOSE DROPS 15 ML BTL BOTH EYES SCH ×6 (00:17→20:42)
[2021-06-30 00:27] LABS: Glucose,Whole Blood 106 mg/dL (75-99)
[2021-06-30] MEDS: CLEVIDIPINE BUTYRATE 25 MG in EMPTY BAG 1 BAG IV SCH ×2 (00:37→11:49)
[2021-06-30] MEDS: CISATRACURIUM 200 MG in SODIUM CHLORIDE 0.9% 180 ML IV SCH ×3 (02:53→20:50)
[2021-06-30] MEDS: METOCLOPRAMIDE 5 MG/ML 2 ML VIAL IVP SCH ×3 (04:40→20:44)
[2021-06-30 05:20] LABS: ABG Base Excess -2.3 mmol/L; ABG HCO3 26 mmol/L (21-25); ABG Oxygen Saturation 95.2 % (94-97); ABG PCO2 64 mmHg (35-45); ABG PH 7.21 (7.35-7.45); ABG PO2 83 mmHg (83-108); ABG TCO2 28 mmol/L (19-24); Allen Test Performed? Yes
[2021-06-30 05:40] LABS: Glucose,Whole Blood 89 mg/dL (75-99)
[2021-06-30] MEDS: CALCIUM ACETATE 667 MG TAB PO SCH ×3 (06:40→16:44)
[2021-06-30] MEDS: ALBUTEROL HFA INHALER INHALATION SCH ×4 (07:29→19:43)
--- NOTE | 2021-06-30 07:45 | XR ---
EXAMINATION TYPE: XR chest 1V portable DATE OF EXAM: 06/30/2021 COMPARISON: 06/28/2021 HISTORY: 75 years Male. STUDY INDICATION GIVEN: CoVID pneumonia, pneumomediastinum . TECHNIQUE: Portable AP chest radiograph IMPRESSION: Tracheostomy again seen in the midthoracic trachea. Left upper extremity PICC terminates in the SVC. Enteric tube courses into the stomach. Extensive bilateral interstitial and airspace opacities are again seen with no significant change. A large pneumothorax. Trace bilateral pleural effusions. No cardiomegaly. Similar appearance to subcutaneous air and mediastinal air. No cardiomegaly.
[2021-06-30 07:47] LABS: Anisocytosis Slight; HCT 22.9 % (39.0-53.0); HGB 7.5 gm/dL (13.0-17.5); MCH 29.7 pg (25.0-35.0); MCHC 32.8 g/dL (31.0-37.0); MCV 90.4 fL (80.0-100.0); Mean Platelet Volume 9.2; Platelet Count 388 k/uL (150-450); RBC 2.53 m/uL (4.30-5.90); RDW 16.5 % (11.5-15.5); WBC 9.4 k/uL (3.8-10.6)
[2021-06-30 07:59] LABS: Calcium 8.1 mg/dL (8.4-10.2); Potassium 4.2 mmol/L (3.5-5.1)
[2021-06-30] MEDS: AMIODARONE 200 MG TAB PO SCH ×2 (08:48→20:42)
[2021-06-30] MEDS: CHLORHEXIDINE GLUCONATE 15 ML CUP MUCOUS MEM SCH ×2 (08:48→20:42)
[2021-06-30] MEDS: PANTOPRAZOLE 40 MG/10 ML VIAL IVP SCH ×2 (08:48→20:42)
[2021-06-30] MEDS: METOPROLOL TARTRATE 25 MG TAB PO SCH (08:48)
[2021-06-30] MEDS: ZINC SULFATE 220 MG CAP PO SCH (08:48)
[2021-06-30] MEDS: CYANOCOBALAMIN 500 MCG TAB PO SCH (08:48)
[2021-06-30] MEDS: CHOLECALCIFEROL 25 MCG (1000 IU) TABLET PO SCH (08:48)
[2021-06-30] MEDS: ASCORBIC ACID 500 MG TAB PO SCH (08:48)
[2021-06-30] MEDS: SENNOSIDES-DOCUSATE SODIUM 1 EACH TAB PO SCH (08:48)
[2021-06-30] MEDS: SODIUM BICARBONATE TAB 650 MG TAB PO SCH (08:48)
[2021-06-30] MEDS: bisacodyL 10 MG SUPP RECTAL SCH (08:49)
[2021-06-30] MEDS: DEXAMETHASONE SOD PHOSPHATE 4 MG/ML 1 ML VIAL IV SCH (08:49)
[2021-06-30 09:30] LABS: Band Neutrophils % 5 %; Eosinophils # (M) 0.19 k/uL (0-0.7); Lymphocytes # (M) 0.47 k/uL (1.0-4.8); Metamyelocytes # (M) 0.09 k/uL (0); Metamyelocytes % 1 %; Monocytes # (M) 0.75 k/uL (0-1.0); Myelocytes # (M) 0.28 k/uL (0); Myelocytes % 3 %; Neutrophils % (M) 77 %; Nucleated Red Blood Cells 0 /100 WBC (0-0); Total Cells Counted 200
[2021-06-30] MEDS ORDERED: CISATRACURIUM 2 MG/ML 5 ML VIAL IV ONE (09:39)
[2021-06-30] MEDS: SODIUM CHLORIDE 0.9% IVPB SCH ×2 (09:48→20:42)
[2021-06-30] MEDS: VORICONAZOLE IVPB SCH ×2 (09:48→20:42)
[2021-06-30] MEDS: fentaNYL (PF). 1,000 MCG in SODIUM CHLORIDE 0.9% 80 ML IV SCH ×2 (10:30→20:49)
--- NOTE | 2021-06-30 11:17 | PN ---
PROGRESS NOTE Patient is seen for followup for acute kidney injury associated with COVID pneumonia. Patient continues to require daily treatments. We were able to get only one liter off yesterday. Patient will be dialyzed again today. His blood pressure is currently running on the higher side. Patient also has had high pressures on the vent, and large amounts of blackish-colored phlegm was obtained from his lungs. There are plans for repeat bronchoscopy today. On examination, patient is currently sedated. He is on the vent. He has subcutaneous emphysema. His face appears to be more swollen today. Blood pressure is 143/53, heart rate 84 per minute. He is afebrile. Examination shows significant edema, upper and lower extremities, with scrotal edema. [employer]IST[employer] exam cannot be performed. Patient has subcutaneous emphysema in the upper extremities, face and neck and chest area. Abdomen is distended, soft. Labs show sodium 134, potassium 4.2, chloride 100, BUN 48, creatinine 3.38, hemoglobin 7.5 g/dL. ASSESSMENT: 1. Acute kidney injury, acute tubular necrosis, currently oliguric and dialysis- dependent. Will arrange for hemodialysis today. 2. Volume overload. Plan for a treatment today with UF of about 2 to 3 L. 3. COVID pneumonia. 4. Acute hypoxic respiratory failure, currently on the vent. 5. Metabolic acidosis, improved. I will discontinue the sodium bicarb. 6. Hyp tension, partly volume-sensitive, with blood pressure decreasing during hemodialysis. We will change the timing of the metoprolol to at bedtime so that his pressure is not low during dialysis in the morning. 7. Anemia, multifactorial, maintained on Aranesp for component of anemia from renal failure. 8. Hyperphosphatemia, maintained on PhosLo. PLAN: Repeat dialysis today with goal ultrafiltration of about 2 to 3 L as tolerated. Change the timing of metoprolol to at bedtime to allow higher pressures during dialysis. MMODL / IJN: [id number] /
[2021-06-30 11:38] LABS: Glucose,Whole Blood 110 mg/dL (75-99)
[2021-06-30 11:50] LABS: Appearance,BF Cloudy; Nucleated Cells, Body Fluid 10400 /uL; RBC, Body Fluid 3500 /uL
[2021-06-30 11:57] LABS: Mononuclear WBC,Body Fluid 95 %; Polynuclear WBC,Body Fluid 5 %; Total Cells Counted,Body Fluid 100
--- NOTE | 2021-06-30 12:50 | PCN ---
PROCEDURE NOTE PROCEDURE: Bronchoscopy, airway examination, therapeutic lavage, BAL with pooled washings. PREOPERATIVE DIAGNOSIS: Airway obstruction. POSTOPERATIVE DIAGNOSIS: Airway obstruction. OPERATORS: 1. Dr. Paris. 2. Dr. Dimas. PROCEDURE DETAILS: The procedure took place at the bedside, room 267. The patient was being mechanically ventilated on 100% oxygen and was sedated and paralyzed. After the bronchoscope adapter was connected to the endotracheal tube, the bronchoscope was inserted through the bronchoscope adapter. There was noted to be debris within the trachea. It was necrotic. It was suctioned. The left side actually looked pretty good. The left upper lobe and its 2 segments, the lingula and its 2 segments, and the left lower lobe and its 4 segments all appeared relatively clear. The problem really was on the right side. Right at the beginning of the right mainstem, there was necrotic debris noted throughout. There was obvious obstruction on the right side. We used a small bedside bronchoscope to clear the airway. We were successful in removing some of the debris, but we are going to have to come back with a larger bronchoscope with better suction capability to fully improve the airway. During the procedure, the saturations improved, as did the airway pressure. The peak airway pressure, which was in the 60 range, was now down to mid 40s. We did do a formal BAL and that fluid will be sent for analysis, including cytology, differential, and microbiology. The patient tolerated the procedure well. Again, we will come back with a normal bronchoscope and redo the airway examination and suction any additional debris. The patient tolerated the procedure well. There was no immediate complication. MMODL / IJN: [id number] / NEELAM
--- NOTE | 2021-06-30 13:01 | P.PN ---
Subjective Progress Note Date: 06/30/21 CHIEF COMPLAINT: Covid pneumonia HISTORY OF PRESENT ILLNESS: The patient is a 75-year-old male admitted with pneumonia due to Covid. He is mechanically ventilated. She did have a pleural tap earlier today with over 1 L removed from the lung. Patient is in intensive care unit. REVIEW OF ORGAN SYSTEMS: No fevers or chills. Mechanically ventilated. Morbid obesity with BMI 38.0 PHYSICAL EXAM: VITAL SIGNS: Stable GENERAL: Well-developed pleasant in no acute distress. HEENT: No scleral icterus. Extraocular movements grossly intact. Moist buccal mucosa. Tracheostomy intact CHEST: Mechanical ventilation with equal bilateral excursions. CARDIOVASCULAR: 2+ pulses ABDOMEN: Protuberant. No peritonitis. MUSCULOSKELETAL: No clubbing, cyanosis. NEURO: Sedated SKIN: Well perfused. PSYCH: sedated. LABS: Reviewed. WBC normal at 5.1-5.8, up to 9.4. Hemoglobin stable 7.8-8.0 with anemia, down to 7.5. ASSESSMENT: 1. Covid pneumonia 2. Inadequate oral intake with protein malnutrition 3. Status post gastrostomy tube placement 4. Status post tracheostomy 5. Morbid obesity due to excess calories, BMI 38.0 6. Anemia PLAN: 1. Continue TPN and blue of gastrostomy tube placement which is pending at this time. 2. Continue supportive measures for COVID-19. Objective - Vital Signs Vital signs: Vital Signs Temp 97.4 F L 06/30/21 12:00 Pulse 72 06/30/21 12:00 Resp 24 06/30/21 12:00 BP 149/81 06/30/21 12:00 Pulse Ox 97 06/30/21 12:00 Intake & Output 06/29/21 06/30/21 06/30/21 18:59 06:59 18:59 Intake Total 0793.088 7713.250 752.421 Output Total 2010 0 Balance 1474.928 -759.750 752.421 Weight 117.2 kg Intake: IV 276 276 135 0.9 240 240 120 Pressure bag 36 36 15 Intake, IV Titration 588.928 524.250 327.421 Amount Cisatracurium 200 mg In 190.512 195.216 118.188 Sodium Chloride 0.9% 180 ml @ 1 MCG/KG/MIN 5.88 mls/hr IV .Q24H [facility] Rx#: [id number] Clevidipine Butyrate 25 9.167 29.034 9.233 mg In Empty Bag 1 bag @ 1 MG/HR 2 mls/hr IV .Q24H [facility] Rx#:[id number] Voriconazole 300 mg In 100 Sodium Chloride 0.9% 100 ml @ 125 mls/hr IVPB Q12HR [facility] Rx#:[id number] fentaNYL (PF). 1,000 mcg 90.471 100 In Sodium Chloride 0.9% 80 ml @ 0.25 MCG/KG/HR 2. 765 mls/hr IV .Q24H [facility] Rx#:[id number] propofoL 1,000 mg In 298.778 300 Empty Bag 1 bag @ Titrate IV .Q0M [facility] Rx#: [id number] Tube Feeding 360 360 150 Other 260 90 140 Output: Urine 10 10 0 Hemodialysis 2000 Other: Voiding Method Indwelling Catheter Indwelling Catheter Indwelling Catheter # Voids 0 ABP, PAP, CO, CI - Last Documented Arterial Blood Pressure 129/51 - Labs CBC & Chem 7: 06/30/21 07:30 06/30/21 07:30 Labs: Abnormal Lab Results - Last 24 Hours (Table) 06/29/21 06/30/21 06/30/21 Range/Units 18:00 00:25 05:17 RBC (4.30-5.90) m/uL Hgb (13.0-17.5) gm/dL Hct (39.0-53.0) % RDW (11.5-15.5) % Lymphocytes # (Manual) (1.0-4.8) k/uL Metamyelocytes # (Man) (0) k/uL Myelocytes # (Manual) (0) k/uL ABG pH 7.21 L (7.35-7.45) ABG pCO2 64 H (35-45) mmHg ABG HCO3 26 H (21-25) mmol/L ABG Total CO2 28 H (19-24) mmol/L Sodium (137-145) mmol/L BUN (9-20) mg/dL Creatinine (0.66-1.25) mg/dL Glucose (74-99) mg/dL POC Glucose (mg/dL) 121 H 106 H (75-99) mg/dL Calcium (8.4-10.2) mg/dL 06/30/21 06/30/21 06/30/21 Range/Units 07:30 07:30 11:36 RBC 2.53 L (4.30-5.90) m/uL Hgb 7.5 L (13.0-17.5) gm/dL Hct 22.9 L (39.0-53.0) % RDW 16.5 H (11.5-15.5) % Lymphocytes # (Manual) 0.47 L (1.0-4.8) k/uL Metamyelocytes # (Man) 0.09 H (0) k/uL Myelocytes # (Manual) 0.28 H (0) k/uL ABG pH (7.35-7.45) ABG pCO2 (35-45) mmHg ABG HCO3 (21-25) mmol/L ABG Total CO2 (19-24) mmol/L Sodium 134 L (137-145) mmol/L BUN 48 H (9-20) mg/dL Creatinine 3.38 H (0.66-1.25) mg/dL Glucose 120 H (74-99) mg/dL POC Glucose (mg/dL) 110 H (75-99) mg/dL Calcium 8.1 L (8.4-10.2) mg/dL Assessment and Plan (1) Tracheostomy status Current Visit: Yes Status: Acute Code(s): Z93.0 - TRACHEOSTOMY STATUS SNOMED Code(s): 093426696 (2) Inadequate dietary intake of protein Current Visit: Yes Status: Acute Code(s): E63.9 - NUTRITIONAL DEFICIENCY, UNSPECIFIED SNOMED Code(s): 074769789 (3) Difficulty liberating from mechanical ventilation Current Visit: Yes Status: Acute Code(s): Z99.11 - DEPENDENCE ON RESPIRATOR [VENTILATOR] STATUS SNOMED Code(s): 821468474 (4) Acute and chronic respiratory failure with hypoxia Current Visit: Yes Status: Acute Code(s): J96.21 - ACUTE AND CHRONIC RESPIRATORY FAILURE WITH HYPOXIA SNOMED Code(s): 17651625 (5) COVID Current Visit: Yes Status: Acute Code(s): U07.1 - COVID-19 SNOMED Code(s): 423641485
--- NOTE | 2021-06-30 13:07 | P.PN ---
Subjective Progress Note Date: 06/30/21 Principal diagnosis: COVID-19 pneumonia On June 22, 2021, patient is seen in follow-up in intensive care unit, patient remains intubated, sedated and paralyzed on mechanical ventilator, on assist-control mode of ventilation with a rate at 36, tidal volumes 450, FiO2 55% and PEEP of 14, this morning's blood gas shows pO2 of 56, pCO2 43, and pH of 7.30, this was done and FiO2 of 50% and subsequently FiO2 has been increased to 55%, his pulse ox is 94-96%. Patient is currently 0.9 normal saline every 20 ML per hour, fentanyl infusion at 0.6 mics per kilo per hour, Diprivan is a 50 mics per kilo per minute, Nimbex is currently at 2 mics per kilo per minute. He is on tube feedings with vital AF at 10 ML per hour, trickle feedings have been started yesterday, residuals have not been checked, patient has been on IV Reglan, 5 mg every 8 hours, he is receiving Senokot-S, abdomen is soft, bowel sounds are hypoactive, patient has not passed a bowel movement yet, however he is been tolerating tube feedings at a low rate. He remains on Eliquis, remains in atrial fibrillation with a controlled rate. Patient is currently on dexamethasone 6 mg daily, is on IV Lasix 60 mg twice daily, and he has been getting daily hemodialysis treatments. Yesterday he had hemodialysis would removal of 2 L of fluid, today 2-1/2 L of fluid was removed. Patient is in -1.8 L over the last 24 hours. Today's chest x-ray shows diffuse subcutaneous emphysema. Subcutaneous emphysema was noted to be extensive. Today's white blood cell count is 14.0, hemoglobin is 8.9, d-dimer is 11.73, sodium is 134, potassium is 4.5, chloride is 105, CO2 is 20, B1 of 79, creatinine of 4.6, LDH is 783, and CRP is 5.8. Patient remains on combination of Diflucan and cefepime, his pro calcitonin level was improving and was down to 13.1 on 06/20/2021. Repeat sputum culture has been sent, initial sputum culture from 06/02/2021 showed pseudomonas aeruginosa and Essence albicans. On 06/24/2021 patient seen in follow-up in intensive care unit, she remains sedated, intubated and paralyzed on mechanical ventilator, currently on assist control mode of ventilation with a rate 36, tidal lungs were 50, FiO2 of 55% and PEEP of 14, this morning's blood gas shows pO2 of 68, pCO2 of 40, and pH of 7.28. He is currently on 0.9 normal saline at a rate of 20 ML per hour, Diprivan is at 50 mics per kilo per minute, fentanyl is at 0.6 mics per kilo per hour, and Pneumovax is at 4 mics per kilo per minute, he was receiving vital high protein at 30 ML per hour however overnight he again started having high residuals, and this morning his tube feedings were placed on hold, and his OG tube was placed to suction with return of 800 mL of dark brownish colored gastric secretions. He has not had a bowel movement, he has been receiving suppositories, and stool softeners, he is also on Reglan 5 mg every 8 hours. He is having another hemodialysis session today with a goal of removing 3 L of fluid. Today's chest x-ray shows interval development of pneumomediastinum which actually has been noted on the chest x-rays a few days ago, and progression of subcutaneous emphysema. No evident pneumothorax. There is bilateral inspiratory disease which is diffuse and similar to previous chest x- ray. Patient currently remains on cefepime and Diflucan, his most recent sputum culture showed Aspergillus not fumigators, and the sputum culture from 06/02/2021 showed pseudomonas aeruginosa and Essence albicans. Patient has been afebrile, she is not any vasopressor support, today's labs have been reviewed s howing white blood cell count of 11.9 which is down from 12.7, hemoglobin is 8.0, platelets count is 43, his most recent d-dimer was 9.68, which was improved, today's d-dimer is still pending, sodium is 135, potassium is 5.1, chloride is 105, CO2 is 18, BUN is 87, and creatinine is 5.05. Today's in flammatory markers are still pending, his most recent pro calcitonin level from 06/20/2021 was elevated at 13.1. Patient isn't in atrial fibrillation with a controlled rate, he is currently on Eliquis for anticoagulation. His urine output has been quite minimal in the order of 0-10 ML per hour. He appears to be generally swollen. On 06/30/2001 patient seen in follow-up in the intensive care unit, he remains trached to the ventilator, sedated, and paralyzed, currently on assist control mode of ventilation with a rate of 36, tidal and was 400, FiO2 of 70% PEEP of 14. Patient was noted to be desaturating, FiO2 has been increased to 100%. Today's chest x-ray shows extensive bilateral interstitial and airspace opacities without significant change. There is similar appearance of subcutane ous air in mediastinal air, radiologist commented about a large pneumothorax however there is no pneumothorax on review of the chest x-ray films with Dr. Paris. No cardiomegaly, trace bilateral pleural effusions. Patient is currently on Depo-Provera at 50 mics per kilo per minute, fentanyl at 0.6 mics per kilo per minute, Nimbex is a 4 mics per kilo per minute, Cleviprex is off, 0.9 at 20 ML per hour, tube feedings with vital HP at 30 ML per hour, with a goal of 30 ML per hour, he had hemodialysis yesterday on 06/29/2021 would removal of 1 L of fluid. This morning's blood gas showed pO2 of 83, pCO2 64, and pH is 7.21. Clinically patient's subcutaneous emphysema seems to have increased, and he has subcutaneous air in his face, neck, bilateral chest, bilateral arms. Today's labs have been reviewed, his white blood cell count is 9.4, hemoglobin is 7.5, sodium is 134, the rest of electrolytes were within normal limits, BUN is 48, creatinine is 3.38. We will have been difficult time oxygenating the patient, and there was suspicion for endobronchial mucus plugging. Bronchoscopy with bronchoalveolar lavage, and removal of endobronchial debris was then in the bedside twice this morning. There was a large amount of hard dark debris removed from his right lung. Procedure had to be done twice the first time with the disposable bronchoscope, however in view of extensive bronchial debris in the right lung and insufficient suction bronchoscopy was repeated again with endoscopy team at the bedside and the regular bronchoscope. Please refer to the procedure notes. BAL cultures have been sent. Following the procedures patient started oxygenating better, and his peak air pressures have improved. Patient has been on cefepime and voriconazole. ID service is following. Sputum culture from 06/01/2021 showed pseudomonas aeruginosa and Essence, and repeat sputum culture on 06/22/2021 showed Aspergillus not fumigators species. Right groin temporary hemodialysis catheter is in place, patient has been anuric. He is generally in positive fluid balance a total of nearly 20 kg since admission. Been afebrile. Currently remains on dexamethasone 4 mg daily, he is on COVID-19 vitamins, she is on the above-mentioned antibiotics, he is tolerating tube feedings, he still receives Reglan and stool softeners. Objective - Vital Signs Vital signs: Vital Signs Temp 97.4 F L 06/30/21 12:00 Pulse 72 06/30/21 12:00 Resp 24 06/30/21 12:00 BP 149/81 06/30/21 12:00 Pulse Ox 97 06/30/21 12:00 Intake & Output 06/29/21 06/30/21 06/30/21 18:59 06:59 18:59 Intake Total 9701.712 4977.250 752.421 Output Total 10 2010 0 Balance 1474.928 -759.750 752.421 Weight 117.2 kg Intake: IV 276 276 135 0.9 240 240 120 Pressure bag 36 36 15 Intake, IV Titration 588.928 524.250 327.421 Amount Cisatracurium 200 mg In 190.512 195.216 118.188 Sodium Chloride 0.9% 180 ml @ 1 MCG/KG/MIN 5.88 mls/hr IV .Q24H [facility] Rx#: [id number] Clevidipine Butyrate 25 9.167 29.034 9.233 mg In Empty Bag 1 bag @ 1 MG/HR 2 mls/hr IV .Q24H [facility] Rx#:[id number] Voriconazole 300 mg In 100 Sodium Chloride 0.9% 100 ml @ 125 mls/hr IVPB Q12HR [facility] Rx#:[id number] fentaNYL (PF). 1,000 mcg 90.471 100 In Sodium Chloride 0.9% 80 ml @ 0.25 MCG/KG/HR 2. 765 mls/hr IV .Q24H [facility] Rx#:[id number] propofoL 1,000 mg In 298.778 300 Empty Bag 1 bag @ Titrate IV .Q0M [facility] Rx#: [id number] Tube Feeding 360 360 150 Other 260 90 140 Output: Urine 10 10 0 Hemodialysis 1999 Other: Voiding Method Indwelling Catheter Indwelling Catheter Indwelling Catheter # Voids 0 ABP, PAP, CO, CI - Last Documented Arterial Blood Pressure 129/51 - Exam GENERAL EXAM: Trached to the ventilator sedated and paralyzed, generally swollen 75-year-old white male, on assist-control mode of ventilation, with FiO2 of 100% and PEEP of 14 comfortable in no apparent distress. Patient has significant subcutaneous air present in his face, eyelids, neck, bilateral chest, and bilateral arms HEAD: Normocephalic/atraumatic. EYES: Normal reaction of pupils, equal size. Conjunctiva pink, sclera white. NOSE: Clear with pink turbinates. THROAT: No erythema or exudates. NECK: No masses, no JVD, no thyroid enlargement, no adenopathy. CHEST: No chest wall deformity. Symmetrical expansion. LUNGS: Equal air entry with diminished breath sounds bilaterally, with diffuse crackles CVS: Regular rate and rhythm, normal S1 and S2, no gallops, no murmurs, no rubs ABDOMEN: Soft, nontender. No hepatosplenomegaly, normal bowel sounds, no guarding or rigidity. PEG tube is in place with tube feedings infusing EXTREMITIES: No clubbing, 1+ generalized edema no cyanosis, 2+ pulses and upper and lower extremities. Patient has right groin temporary hemodialysis catheter in place MUSCULOSKELETAL: Muscle strength and tone normal. SPINE: No scoliosis or deformity SKIN: No rashes CENTRAL NERVOUS SYSTEM: Sedated, intubated and paralyzed No focal deficits, tone is normal in all 4 extremities. - Labs CBC & Chem 7: 06/30/21 07:30 06/30/21 07:30 Labs: Abnormal Lab Results - Last 24 Hours (Table) 06/29/21 06/30/21 06/30/21 Range/Units 18:00 00:25 05:17 RBC (4.30-5.90) m/uL Hgb (13.0-17.5) gm/dL Hct (39.0-53.0) % RDW (11.5-15.5) % Lymphocytes # (Manual) (1.0-4.8) k/uL Metamyelocytes # (Man) (0) k/uL Myelocytes # (Manual) (0) k/uL ABG pH 7.21 L (7.35-7.45) ABG pCO2 64 H (35-45) mmHg ABG HCO3 26 H (21-25) mmol/L ABG Total CO2 28 H (19-24) mmol/L Sodium (137-145) mmol/L BUN (9-20) mg/dL Creatinine (0.66-1.25) mg/dL Glucose (74-99) mg/dL POC Glucose (mg/dL) 121 H 106 H (75-99) mg/dL Calcium (8.4-10.2) mg/dL 06/30/21 06/30/21 06/30/21 Range/Units 07:30 07:30 11:36 RBC 2.53 L (4.30-5.90) m/uL Hgb 7.5 L (13.0-17.5) gm/dL Hct 22.9 L (39.0-53.0) % RDW 16.5 H (11.5-15.5) % Lymphocytes # (Manual) 0.47 L (1.0-4.8) k/uL Metamyelocytes # (Man) 0.09 H (0) k/uL Myelocytes # (Manual) 0.28 H (0) k/uL ABG pH (7.35-7.45) ABG pCO2 (35-45) mmHg ABG HCO3 (21-25) mmol/L ABG Total CO2 (19-24) mmol/L Sodium 134 L (137-145) mmol/L BUN 48 H (9-20) mg/dL Creatinine 3.38 H (0.66-1.25) mg/dL Glucose 120 H (74-99) mg/dL POC Glucose (mg/dL) 110 H (75-99) mg/dL Calcium 8.1 L (8.4-10.2) mg/dL Assessment and Plan Plan: Assessment: #1. Acute hypoxic respiratory failure secondary to COVID-19 pneumonia, patient was not vaccinated. He failed BiPAP therapy, was intubated on 06/15/2021, he remains sedated and paralyzed on assist control mode of ventilation with a PEEP of 14 and FiO2 of 55% today. Remains on Nimbex, Diprivan and sent no. Has been getting hemodialysis since 06/20/2021. Trach and PEG on 06/26/2021 #2. Subcutaneous emphysema, and pneumomediastinum. subcutaneous emphysema has worsened on today's chest x-ray. No clear evidence of pneumothorax #3. Acute kidney injury, patient was started on hemodialysis on 06/20/2021 #4. History of chronic atrial fibrillation, with recent RVR, currently on amiodarone and Eliquis for anticoagulation #5. Pseudomonas aeruginosa in his sputum culture, possibly related to immunosuppression, currently on Zosyn, and Diflucan for Essence albicans in the sputum culture. Most recent sputum culture from 06/22/2021 shows Aspergillus not fumigatus. Current antibiotic coverage includes cefepime and voriconazole #6. Extensive oropharyngeal candidiasis, patient was on Diflucan, currently on voriconazole #7. Leukocytosis, resolved, and white blood cell count is normal #8. Elevated d-dimer, and inflammatory markers related to acute COVID-19 pneumonia, patient is on Eliquis, inflammatory markers are slightly improved but still remain elevated Plan: Patient underwent a bedside bronchoscopy with BAL twice for removal of extensive endobronchial debris in the right lung with necrotic tissue BAL was sent, await cultures Continue current antibiotics Patient may need repeat bronchoscopy with BAL tomorrow He tolerated procedures well today, his oxygenation improved, and we pressures improved Continue current vent settings With dialysis treatment per nephrology Continue Decadron, continue antibiotics Continue tube feedings, continue stool softeners and Reglan Overall prognosis is guarded Follow-up chest x-ray labs, inflammatory markers tomorrow Daily labs, daily blood gas I performed a history & physical examination of the patient and discussed their management with my nurse practitioner, Telma Dimas. I reviewed the nurse practitioner's note and agree with the documented findings and plan of care. Lung sounds are positive for diminished breath sounds throughout the lung de la torre. The findings and the impression was discussed with the patient. I attest to the documentation by the nurse practitioner. Time with Patient: Greater than 30
[2021-06-30] MEDS: NOREPINEPHRINE 8 MG in SODIUM CHLORIDE 0.9% 250 ML IV SCH (14:29)
[2021-06-30 17:38] LABS: Glucose,Whole Blood 117 mg/dL (75-99)
--- NOTE | 2021-06-30 18:06 | PN ---
PROGRESS NOTE DATE OF SERVICE: 06/30/2021 This 75-year-old gentleman who was admitted with acute COVID-19 infection with acute bilateral interstitial pneumonia with acute hypoxic respiratory failure is being closely monitored. No chest pain. No palpitations. No fever. The patient is on mechanical ventilation. The patient underwent bronchoscopy which showed thick secretions highly suggestive of Aspergillus. Cultures are obtained at this time. The patient is on voriconazole. Infectious Disease and Pulmonary are following the patient closely. The patient also had renal failure secondary to COVID-19. The patient is receiving hemodialysis also. Past medical history reviewed. Review of systems could not be taken. CURRENT MEDICATIONS: Reviewed. They include Tylenol, Ventolin, Cordarone, vitamin, PhosLo, cefepime, clevidipine, dexamethasone, fentanyl, propofol, voriconazole. PHYSICAL EXAMINATION: Patient is sedated and mechanically ventilated. Pulse 80. Blood pressure is 134/77, respiration 39, temperature 96.1, pulse ox 93% on 70% FiO2. HEENT: Conjunctivae normal. Oral mucosa moist. NECK: No jugular venous distention. CARDIOVASCULAR: S1, S2 muffled. RESPIRATION: Breath sounds diminished at the bases. Bilateral scattered rhonchi and crackles. ABDOMEN: Soft, obese. LEGS: No edema. No swelling. NERVOUS SYSTEM: Patient is mechanically ventilated and sedated. Diffuse subcutaneous emphysema present. LABS: WBC 9.4, hemoglobin 7.5. Sodium is 134, creatinine is 3.38. ASSESSMENT: 1. Acute COVID-19 infection with acute bilateral interstitial pneumonia with acute hypoxic respiratory failure, on mechanical ventilation with ARDS, possibly sepsis secondary to COVID-19. 2. Status post tracheostomy. 3. 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 4. Extensive subcutaneous emphysema with pneumomediastinum. 5. Inability to place a PEG tube. 6. Acute renal failure, acute tubular necrosis, on hemodialysis. 7. Volume overload secondary to acute renal failure. 8. Acute metabolic acidosis. 9. Atrial fibrillation with rapid ventricular rate. 10.Lactic acidosis, acute. 11.Initial sputum showing Essence albicans and Pseudomonas aeruginosa. Repeat showing aspergillus, not fumigatus. 12.Oral candidiasis. 13.Extensive interstitial bilateral COVID-19 pneumonia. 14.Elevated white count. 15.Possible subsegmental pulmonary embolism ruled out. 16.History of atrial ablation. 17.History of anxiety. 18.Remote history of nicotine dependence. 19.FULL CODE. RECOMMENDATIONS AND DISCUSSION: I recommend to continue current medications, continue with symptomatic treatment. Continue with the antibiotics. Continue with voriconazole. Continue the rest of the medications. continue the mechanical ventilation. Closely follow with Infectious Disease and Pulmonary. Prognosis is guarded because of multiple complex medical issues. Further recommendations to follow. MMHERMESL / PREMAN: [id number] / MTDD
--- NOTE | 2021-06-30 20:06 | PCN ---
PROCEDURE NOTE PROCEDURE: Bronchoscopy, airway examination, therapeutic lavage, BAL. OPERATORS: 1. Dr. Paris. 2. Dr. Dimas. This is a repeat bronchoscopy for lung collapse and airway debris. PROCEDURE DESCRIPTION: The patient's procedure was done in his room, which is room 267. We did have to call in the endoscopy individuals to help us with this procedure, as the bedside portable bronchoscope was not adequate and was not able to remove debris from the airway. The patient was being fully sedated and paralyzed and the patient was on 100% oxygen on the ventilator. The bronchoscope was inserted through the bronchoscope adapter connected to the endotracheal tube. Again there was significant debris noted, particularly in the right side of the lung. The left lung was actually relatively clear. We noted debris and necrotic bronchial mucosa in the distal trachea, and all throughout the right mainstem. It was difficult to remove. It was removed piecemeal. The debris was very dark in color, suggesting necrosis. There also appeared to be some adherent white material to the bronchial mucosa, which may represent yeast. We made multiple passes to clean the airways. At one point, I even used a brush to sort of knock the debris off the airway deal so that we could suction it off. The patient tolerated the procedure well. There was some mucosal friability. There was no significant bleeding. The bronchoscope was withdrawn. No samples were collected. The patient tolerated the procedure well; and actually during the procedure the oxygenation improved and the airway pressures went down. MMODL / IJN: [id number] /
[2021-06-30] MEDS: CEFEPIME 1 GM in SODIUM CHLORIDE 0.9% 50 ML IVPB SCH (20:43)
--- NOTE | 2021-06-30 22:52 | PN ---
PROGRESS NOTE DATE OF SERVICE: 06/30/2021 REASON FOR FOLLOWUP: Pneumonia. INTERVAL HISTORY: The patient is afebrile. The patient is status post bronchoscopy with evidence of that has been sectioned off. Cultures have been obtained. The patient tolerated the procedure. The patient is hemodynamically stable, not on pressor support. FiO2 is currently 75%. No diarrhea. No other changes reported by the nursing staff. PHYSICAL EXAMINATION: Blood pressure 129/52 with a pulse of 90, temperature of 97.8. He is 93% on 65% FiO2. General description is an elderly male lying in bed in no distress. Respiratory system: Unlabored breathing, decreased breath sounds in the base, with no wheeze. Heart S1, S2. Regular rate and rhythm. Abdomen soft, no tenderness. LABS: Hemoglobin is 7.5, white count 9.4, creatinine 3.38. Bronchial washes currently pending. DIAGNOSTIC IMPRESSION AND PLAN: Patient with acute respiratory failure which is multifactorial started with COVID-19 pneumonia, subsequently did have a Pseudomonas pneumonia for which the patient has been on cefepime, now with bronchoscopy. Findings suspicious for a fungal infection. Patient was started on voriconazole and to continue while waiting for the culture to finalize and monitor clinical course closely. Continue supportive care. MMODL / IJN: [id number] /
[2021-07-01 00:03] LABS: Glucose,Whole Blood 102 mg/dL (75-99)
[2021-07-01 00:15] LABS: Glucose,Whole Blood 101 mg/dL (75-99)
[2021-07-01] MEDS: ARTIFICIAL TEARS-HYPROMELLOSE DROPS 15 ML BTL BOTH EYES SCH ×6 (01:44→20:42)
[2021-07-01] MEDS: METOCLOPRAMIDE 5 MG/ML 2 ML VIAL IVP SCH ×3 (04:36→20:41)
[2021-07-01] MEDS: CISATRACURIUM 200 MG in SODIUM CHLORIDE 0.9% 180 ML IV SCH ×2 (04:37→17:29)
[2021-07-01 05:23] LABS: Glucose,Whole Blood 102 mg/dL (75-99)
[2021-07-01 05:47] LABS: ABG Base Excess -5.4 mmol/L; ABG HCO3 23 mmol/L (21-25); ABG PCO2 66 mmHg (35-45); ABG PO2 84 mmHg (83-108); ABG TCO2 25 mmol/L (19-24); Allen Test Performed? Yes
[2021-07-01 05:52] LABS: ABG PH 7.16 (7.35-7.45)
--- NOTE | 2021-07-01 07:26 | XR ---
EXAMINATION TYPE: XR chest 1V portable DATE OF EXAM: 07/01/2021 COMPARISON: 06/30/2021 HISTORY: Pneumonia TECHNIQUE: Single frontal view of the chest is obtained. FINDINGS: Tracheostomy tube, left subclavian line and enteric tube are not significantly changed. Extensive bilateral airspace disease appears similar to the prior examination. Extensive bilateral soft tissue gas is unchanged. Cardiac silhouette is similar in size to the prior exam. IMPRESSION: No significant change since the prior exam.
[2021-07-01] MEDS: ALBUTEROL HFA INHALER INHALATION SCH ×4 (07:47→20:14)
--- NOTE | 2021-07-01 09:01 | P.PN ---
Subjective Progress Note Date: 07/01/21, the patient remains in the intensive care units. This is a case of a COVID 19 related pneumonia with respiratory failure, intubated on mechanical ventilator. The patient is being seen for a follow-up. Remains sedated, paralyzed, intubated on mechanical ventilator and the patient remains on assist control mode at the rate of 36, tidal volume of 400, FiO2 of 70% with a PEEP of 14. The peak airway pressures are at 40. The static pressure is 33. The blood gases from today shows a pH of 7.15 with a pCO2 of 66 and pO2 of 84. Chest x- ray continues to show extensive bilateral pulmonary interstitial and alveolar infiltrates without any significant change. There is subcutaneous air and mediastinal air as noted. No cardiomegaly. No evidence of any pneumothorax. The patient has a number #8 Biv[address] tracheostomy tube in place. The patient remains on the mechanical ventilator. The patient had initial on 06/02/2021 that showed pseudomonas aeruginosa and Essence. Subsequently, the repeat cultures from 06/22/2021 was positive for Aspergillus, subsequent bronchoscopy was done on 06/30/2021 and the repeat cultures still pending for now. Meanwhile, the patient is covered with a combination of IV cefepime and voriconazole. Remains on Decadron 4 mg IV every 24 hours. The patient's course was also complicated by development of an acute kidney injury related to the COVID-19 related pneumonia. The patient was requiring daily hemodialysis. He had dialysis and 06/29/2021 with a total of 2 L of fluid was removed. The dialysis was done on 06/30/2021. Blood pressure remains on the higher side and the patient is currently on Cleviprex for blood pressure control. He continues to have significant amount of edema in his upper and lower extremities in addition to that the patient has scrotal edema. On examination, there is extensive subcutaneous emphysema in the face, neck, chest and upper extremity. Abdomen is distended soft. The patient remains sedated with propofol running at 50 mics of respiratory per minute and fentanyl at 0.6 mcg/kg per minute. The patient remains paralyzed with Nimbex at 3 mcg/kg per minute. Patient's is currently receiving enteral feeding for nutritional support with vital high protein at the rate of 30 mL an hour. Clinically, the patient continues to have extensive subcutaneous emphysema involving the face, neck, chest and upper ext remities. He has an NG tube in place. I reviewed a bronchoscopy images and the patient has extensive necrosis involving the airways mainly involving the right lung at the level of the right mainstem bronchus and bronchus intermedius. Highly suspicious for Aspergillus infection. Patient remains on voriconazole. Objective - Vital Signs Vital signs: Vital Signs Temp 97.0 F L 07/01/21 08:00 Pulse 101 H 07/01/21 08:00 Resp 36 H 07/01/21 08:00 BP 149/81 07/01/21 00:00 Pulse Ox 93 L 07/01/21 08:00 Intake & Output 06/30/21 07/01/21 07/01/21 18:59 06:59 18:59 Intake Total 6137.087 7884.647 136 Output Total 10 10 Balance 1404.808 1904.647 136 Weight 122.3 kg Intake: IV 273 276 46 0.9 240 240 40 Pressure bag 33 36 6 Intake, IV Titration 589.501 787.647 Amount Cisatracurium 200 mg In 192.668 319.186 Sodium Chloride 0.9% 180 ml @ 1 MCG/KG/MIN 5.88 mls/hr IV .Q24H [facility] Rx#: [id number] Clevidipine Butyrate 25 9.233 mg In Empty Bag 1 bag @ 1 MG/HR 2 mls/hr IV .Q24H [facility] Rx#:[id number] Voriconazole 300 mg In 100 Sodium Chloride 0.9% 100 ml @ 125 mls/hr IVPB Q12HR [facility] Rx#:[id number] fentaNYL (PF). 1,000 mcg 100 68.461 In Sodium Chloride 0.9% 80 ml @ 0.25 MCG/KG/HR 2. 765 mls/hr IV .Q24H [facility] Rx#:[id number] propofoL 1,000 mg In 187.6 400 Empty Bag 1 bag @ Titrate IV .Q0M [facility] Rx#: [id number] Tube Feeding 330 360 60 Other 200 90 30 Output: Urine 10 10 Other: Voiding Method Indwelling Catheter Indwelling Catheter ABP, PAP, CO, CI - Last Documented Arterial Blood Pressure 111/47 - Exam GENERAL EXAM: The patient has a tacheostomy tube, sedated and paralyzed, generally swollen 75-year-old white male, on assist-control mode of ventilation. Patient has significant subcutaneous air present in his face, eyelids, neck, bilateral chest, and bilateral arms HEAD: Normocephalic/atraumatic. EYES: Normal reaction of pupils, equal size. Conjunctiva pink, sclera white. NOSE: Clear with pink turbinates. THROAT: No erythema or exudates. NECK: No masses, no JVD, no thyroid enlargement, no adenopathy. The patient has a Bivona #8 tracheostomy tube CHEST: No chest wall deformity. Symmetrical expansion. LUNGS: Equal air entry with diminished breath sounds bilaterally, with diffuse crackles and there is subcutaneous emphysema as noted CVS: Regular rate and rhythm, normal S1 and S2, no gallops, no murmurs, no rubs ABDOMEN: Soft, nontender. No hepatosplenomegaly, normal bowel sounds, no guarding or rigidity. PEG tube is in place with tube feedings infusing EXTREMITIES: No clubbing, 1+ generalized edema no cyanosis, 2+ pulses and upper and lower extremities. Patient has right groin temporary hemodialysis catheter in place MUSCULOSKELETAL: Muscle strength and tone normal. SPINE: No scoliosis or deformity SKIN: No rashes CENTRAL NERVOUS SYSTEM: Sedated, intubated and paralyzed No focal deficits, tone developed nausea or in place, is normal in all 4 extremities. - Labs CBC & Chem 7: 06/30/21 07:30 06/30/21 07:30 Labs: Abnormal Lab Results - Last 24 Hours (Table) 06/30/21 06/30/21 06/30/21 Range/Units 07:30 11:36 17:36 Lymphocytes # (Manual) 0.47 L (1.0-4.8) k/uL Metamyelocytes # (Man) 0.09 H (0) k/uL Myelocytes # (Manual) 0.28 H (0) k/uL ABG pH (7.35-7.45) ABG pCO2 (35-45) mmHg ABG Total CO2 (19-24) mmol/L POC Glucose (mg/dL) 110 H 117 H (75-99) mg/dL C-Reactive Protein (<1.0) mg/dL 07/01/21 07/01/21 07/01/21 Range/Units 00:02 00:13 05:20 Lymphocytes # (Manual) (1.0-4.8) k/uL Metamyelocytes # (Man) (0) k/uL Myelocytes # (Manual) (0) k/uL ABG pH (7.35-7.45) ABG pCO2 (35-45) mmHg ABG Total CO2 (19-24) mmol/L POC Glucose (mg/dL) 102 H 101 H (75-99) mg/dL C-Reactive Protein 13.8 H (<1.0) mg/dL 07/01/21 07/01/21 Range/Units 05:21 05:45 Lymphocytes # (Manual) (1.0-4.8) k/uL Metamyelocytes # (Man) (0) k/uL Myelocytes # (Manual) (0) k/uL ABG pH 7.16 L* (7.35-7.45) ABG pCO2 66 H (35-45) mmHg ABG Total CO2 25 H (19-24) mmol/L POC Glucose (mg/dL) 102 H (75-99) mg/dL C-Reactive Protein (<1.0) mg/dL Microbiology - Last 24 Hours (Table) 06/30/21 10:00 Gram Stain - Preliminary Bronchoalviolar Lavage - Left Bronchial Washings Culture - Preliminary 06/30/21 10:00 Acid Fast Bacilli Culture - Preliminary Bronchoalviolar Lavage - Left 06/30/21 10:00 Fungal Culture - Preliminary Bronchoalviolar Lavage - Left Assessment and Plan Plan: 1 Acute hypoxic respiratory failure secondary to COVID-19 pneumonia, patient was not vaccinated. He failed BiPAP therapy, was intubated on 06/15/2021, he remains sedated and paralyzed on assist control mode of ventilation with a PEEP of 14 and FiO2 of 55% today. The patient developed prolonged respiratory bruno lure requiring vent support and the patient has undergone a tracheostomy tube insertion on 06/28/2021 and the patient has a #8 B[address] tube in place. Remains on Nimbex, Diprivan the course was also complicated by extensive subcutaneous emphysema, no complications with associated pneumonia. No evidence of any pneumothorax. . The patient is post bronchoscopy on 06/30/2021, awaiting final cultures. Earlier cultures indicated Aspergillus and Pseudomonas, still on a combination of voriconazole and cefepime. Based on the bronchoscopy note, there is extensive necrosis of the bronchial airways involving the right mainstem bronchus and the bronchus intermedius. Pictures from bronch was noted. Awaiting the results of the bronchioloalveolar lavage. Chest x-ray was noted. Blood gases was noted. Because Medicare pressure remaining elevated. Chest x-ray showing diffuse subcutaneous emphysema the patient has clinically extensive lymphedema under the skin throughout the body m ainly the face, neck, upper extremities and chest. 2 Subcutaneous emphysema, and pneumomediastinum. subcutaneous emphysema 3 Acute kidney injury, patient was started on hemodialysis on 06/20/2021, Last hemodialysis on 06/29/2021. 4 History of chronic atrial fibrillation, with recent RVR, currently on amiodarone and Eliquis for anticoagulation him a the patient is having episodes this of atrial fibrillation, currently is in sinus 5 Pseudomonas aeruginosa in his sputum culture, possibly related to immunosuppression, currently on Zosyn, and Diflucan for Essence albicans in the sputum culture. Most recent sputum culture from 06/22/2021 shows Aspergillus not fumigatus. Current antibiotic coverage includes cefepime and voriconazole 6 Extensive oropharyngeal candidiasis, patient was on Diflucan, currently on voriconazole 7 Leukocytosis, resolved, and white blood cell count is normal 8 Elevated d-dimer, and inflammatory markers related to acute COVID-19 pneumonia, patient is on Eliquis, inflammatory markers are slightly improved but still remain elevated 9 Fluid overload and the patient is undergoing hemodialysis periodically Plan: Repeat labs for today Continue ventilator support The patient is post bronchoscopy and bronchial alveolar lavage. The patient also had an extensive amount of endobronchial debris's removed from the right lung , awaiting the results of the bronchial lavage collected from yesterday Data chest x-ray and blood gases Continue antibiotic coverage Hemodialysis per nephrology , suggest dialysis today Continue Decadron, continue antibiotics Continue tube feedings, continue stool softeners and Reglan Overall prognosis is guarded Follow-up chest x-ray labs, inflammatory markers tomorrow Daily labs, daily blood gas Enteral feeding for nutritional support Critical care eval, >30 min Time with Patient: Greater than 30
[2021-07-01] MEDS: ASCORBIC ACID 500 MG TAB PO SCH (09:28)
[2021-07-01] MEDS: AMIODARONE 200 MG TAB PO SCH ×2 (09:28→20:42)
[2021-07-01] MEDS: SENNOSIDES-DOCUSATE SODIUM 1 EACH TAB PO SCH (09:28)
[2021-07-01] MEDS: CHLORHEXIDINE GLUCONATE 15 ML CUP MUCOUS MEM SCH ×2 (09:29→20:42)
[2021-07-01] MEDS: CYANOCOBALAMIN 500 MCG TAB PO SCH (09:29)
[2021-07-01] MEDS: CALCIUM ACETATE 667 MG TAB PO SCH ×3 (09:29→17:46)
[2021-07-01] MEDS: PANTOPRAZOLE 40 MG/10 ML VIAL IVP SCH ×2 (09:29→20:42)
[2021-07-01] MEDS: ZINC SULFATE 220 MG CAP PO SCH (09:29)
[2021-07-01] MEDS: CHOLECALCIFEROL 25 MCG (1000 IU) TABLET PO SCH (09:29)
[2021-07-01] MEDS: DEXAMETHASONE SOD PHOSPHATE 4 MG/ML 1 ML VIAL IV SCH (09:29)
[2021-07-01] MEDS: bisacodyL 10 MG SUPP RECTAL SCH (09:30)
[2021-07-01] MEDS: VORICONAZOLE IVPB SCH ×2 (09:30→20:42)
[2021-07-01] MEDS: SODIUM CHLORIDE 0.9% IVPB SCH ×2 (09:30→20:42)
[2021-07-01 09:56] LABS: Albumin 2.1 g/dL (3.5-5.0); C Reactive Protein 8.6 mg/dL (<1.0); Calcium 8.4 mg/dL (8.4-10.2); Total Bilirubin 0.5 mg/dL (0.2-1.3); Total Protein 4.9 g/dL (6.3-8.2)
[2021-07-01 10:15] LABS: Anisocytosis Slight; HCT 21.7 % (39.0-53.0); HGB 7.2 gm/dL (13.0-17.5); MCH 30.9 pg (25.0-35.0); MCHC 33.2 g/dL (31.0-37.0); Platelet Count 485 k/uL (150-450); RBC 2.34 m/uL (4.30-5.90); RDW 16.3 % (11.5-15.5); WBC 13.4 k/uL (3.8-10.6)
[2021-07-01] MEDS: fentaNYL (PF). 1,000 MCG in SODIUM CHLORIDE 0.9% 80 ML IV SCH (10:23)
[2021-07-01 11:00] LABS: Band Neutrophils % 4 %; Metamyelocytes # (M) 0.27 k/uL (0); Metamyelocytes % 2 %; Monocytes # (M) 1.61 k/uL (0-1.0); Myelocytes # (M) 0.94 k/uL (0); Myelocytes % 7 %; Neutrophils % (M) 69 %; Nucleated Red Blood Cells 0 /100 WBC (0-0); Total Cells Counted 100
[2021-07-01 11:01] LABS: Polychromasia Present
[2021-07-01 11:24] LABS: Glucose,Whole Blood 101 mg/dL (75-99)
[2021-07-01] MEDS: CLEVIDIPINE BUTYRATE 25 MG in EMPTY BAG 1 BAG IV SCH (13:53)
--- NOTE | 2021-07-01 14:06 | P.PN ---
Subjective Progress Note Date: 07/01/21 CHIEF COMPLAINT: COVID-19 pneumonia HISTORY OF PRESENT ILLNESS: Patient currently ICU for COVID-19 pneumonia. He is on mechanically ventilation. He is status post tracheostomy placement on 06/26/2021. PEG tube insertion was aborted. Unable to see light reflex during EGD. Patient has NG tube in place for tube feedings. Patient had bronchoscopy completed yesterday. Patient has subcutaneous emphysema. Afebrile WBC 13.4 PHYSICAL EXAM: VITAL SIGNS: Reviewed. GENERAL: Well-developed in no acute distress. HEENT: No sclera icterus. Extraocular movements grossly intact. Moist buccal mucosa. Head is atraumatic, normocephalic. Tracheostomy site clean dry and intact ABDOMEN: Soft. NEUROLOGIC: On mechanical ventilation and sedated ASSESSMENT: 1. Acute hypoxic respiratory failure secondary to COVID-19 pneumonia. Patient requiring prolonged mechanical ventilation. Status post tracheostomy placement 2. Severe protein calorie malnutrition PLAN: -Continue ICU management -Continue supportive care -Continue tube feeds through NG tube Physician Social Director note has been reviewed by physician. Signing provider agrees with the documented findings, assessment, and plan of care. Objective - Vital Signs Vital signs: Vital Signs Temp 97.7 F 07/01/21 12:00 Pulse 103 H 07/01/21 13:00 Resp 36 H 07/01/21 13:00 BP 149/81 07/01/21 00:00 Pulse Ox 94 L 07/01/21 13:00 Intake & Output 06/30/21 07/01/21 07/01/21 18:59 06:59 18:59 Intake Total 3095.605 2151.647 721.028 Output Total 06 23 2000 Balance 4755.278 4591.647 -1278.972 Weight 122.3 kg 122.3 kg Intake: IV 273 276 161 0.9 240 240 140 Pressure bag 33 36 21 Intake, IV Titration 589.501 787.647 290.028 Amount Cisatracurium 200 mg In 192.668 319.186 Sodium Chloride 0.9% 180 ml @ 1 MCG/KG/MIN 5.88 mls/hr IV .Q24H [facility] Rx#: [id number] Clevidipine Butyrate 25 9.233 mg In Empty Bag 1 bag @ 1 MG/HR 2 mls/hr IV .Q24H [facility] Rx#:[id number] Voriconazole 300 mg In 100 Sodium Chloride 0.9% 100 ml @ 125 mls/hr IVPB Q12HR [facility] Rx#:[id number] fentaNYL (PF). 1,000 mcg 100 68.461 90.028 In Sodium Chloride 0.9% 80 ml @ 0.25 MCG/KG/HR 2. 765 mls/hr IV .Q24H [facility] Rx#:[id number] propofoL 1,000 mg In 187.6 400 200 Empty Bag 1 bag @ Titrate IV .Q0M [facility] Rx#: [id number] Tube Feeding 330 360 210 Other 200 90 60 Output: Urine 10 10 Hemodialysis 2000 Other: Voiding Method Indwelling Catheter Indwelling Catheter ABP, PAP, CO, CI - Last Documented Arterial Blood Pressure 119/52 - Labs CBC & Chem 7: 07/01/21 09:14 07/01/21 09:14 Labs: Abnormal Lab Results - Last 24 Hours (Table) 06/30/21 07/01/21 07/01/21 Range/Units 17:36 00:02 00:13 WBC (3.8-10.6) k/uL RBC (4.30-5.90) m/uL Hgb (13.0-17.5) gm/dL Hct (39.0-53.0) % RDW (11.5-15.5) % Plt Count (150-450) k/uL Neutrophils # (Manual) (1.3-7.7) k/uL Lymphocytes # (Manual) (1.0-4.8) k/uL Monocytes # (Manual) (0-1.0) k/uL Metamyelocytes # (Man) (0) k/uL Myelocytes # (Manual) (0) k/uL D-Dimer (<0.60) mg/L FEU ABG pH (7.35-7.45) ABG pCO2 (35-45) mmHg ABG Total CO2 (19-24) mmol/L Sodium (137-145) mmol/L Carbon Dioxide (22-30) mmol/L BUN (9-20) mg/dL Creatinine (0.66-1.25) mg/dL POC Glucose (mg/dL) 117 H 102 H 101 H (75-99) mg/dL Lactate Dehydrogenase (313-618) U/L C-Reactive Protein (<1.0) mg/dL Total Protein (6.3-8.2) g/dL Albumin (3.5-5.0) g/dL Procalcitonin (0.02-0.09) ng/mL 07/01/21 07/01/21 07/01/21 Range/Units 05:20 05:20 05:21 WBC (3.8-10.6) k/uL RBC (4.30-5.90) m/uL Hgb (13.0-17.5) gm/dL Hct (39.0-53.0) % RDW (11.5-15.5) % Plt Count (150-450) k/uL Neutrophils # (Manual) (1.3-7.7) k/uL Lymphocytes # (Manual) (1.0-4.8) k/uL Monocytes # (Manual) (0-1.0) k/uL Metamyelocytes # (Man) (0) k/uL Myelocytes # (Manual) (0) k/uL D-Dimer (<0.60) mg/L FEU ABG pH (7.35-7.45) ABG pCO2 (35-45) mmHg ABG Total CO2 (19-24) mmol/L Sodium (137-145) mmol/L Carbon Dioxide (22-30) mmol/L BUN (9-20) mg/dL Creatinine (0.66-1.25) mg/dL POC Glucose (mg/dL) 102 H (75-99) mg/dL Lactate Dehydrogenase (313-618) U/L C-Reactive Protein 13.8 H (<1.0) mg/dL Total Protein (6.3-8.2) g/dL Albumin (3.5-5.0) g/dL Procalcitonin 1.92 H (0.02-0.09) ng/mL 07/01/21 07/01/21 07/01/21 Range/Units 05:45 09:14 09:14 WBC 13.4 H (3.8-10.6) k/uL RBC 2.34 L (4.30-5.90) m/uL Hgb 7.2 L (13.0-17.5) gm/dL Hct 21.7 L (39.0-53.0) % RDW 16.3 H (11.5-15.5) % Plt Count 485 H (150-450) k/uL Neutrophils # (Manual) 9.70 H (1.3-7.7) k/uL Lymphocytes # (Manual) 0.80 L (1.0-4.8) k/uL Monocytes # (Manual) 1.61 H (0-1.0) k/uL Metamyelocytes # (Man) 0.27 H (0) k/uL Myelocytes # (Manual) 0.94 H (0) k/uL D-Dimer 6.20 H (<0.60) mg/L FEU ABG pH 7.16 L* (7.35-7.45) ABG pCO2 66 H (35-45) mmHg ABG Total CO2 25 H (19-24) mmol/L Sodium (137-145) mmol/L Carbon Dioxide (22-30) mmol/L BUN (9-20) mg/dL Creatinine (0.66-1.25) mg/dL POC Glucose (mg/dL) (75-99) mg/dL Lactate Dehydrogenase (313-618) U/L C-Reactive Protein (<1.0) mg/dL Total Protein (6.3-8.2) g/dL Albumin (3.5-5.0) g/dL Procalcitonin (0.02-0.09) ng/mL 07/01/21 07/01/21 Range/Units 09:14 11:23 WBC (3.8-10.6) k/uL RBC (4.30-5.90) m/uL Hgb (13.0-17.5) gm/dL Hct (39.0-53.0) % RDW (11.5-15.5) % Plt Count (150-450) k/uL Neutrophils # (Manual) (1.3-7.7) k/uL Lymphocytes # (Manual) (1.0-4.8) k/uL Monocytes # (Manual) (0-1.0) k/uL Metamyelocytes # (Man) (0) k/uL Myelocytes # (Manual) (0) k/uL D-Dimer (<0.60) mg/L FEU ABG pH (7.35-7.45) ABG pCO2 (35-45) mmHg ABG Total CO2 (19-24) mmol/L Sodium 133 L (137-145) mmol/L Carbon Dioxide 21 L (22-30) mmol/L BUN 59 H (9-20) mg/dL Creatinine 3.90 H (0.66-1.25) mg/dL POC Glucose (mg/dL) 101 H (75-99) mg/dL Lactate Dehydrogenase 679 H (313-618) U/L C-Reactive Protein 8.6 H (<1.0) mg/dL Total Protein 4.9 L (6.3-8.2) g/dL Albumin 2.1 L (3.5-5.0) g/dL Procalcitonin (0.02-0.09) ng/mL Microbiology - Last 24 Hours (Table) 06/30/21 10:00 Gram Stain - Preliminary Bronchoalviolar Lavage - Left Bronchial Washings Culture - Preliminary Aspergillus species 06/30/21 10:00 Acid Fast Bacilli Culture - Preliminary Bronchoalviolar Lavage - Left 06/30/21 10:00 Fungal Culture - Preliminary Bronchoalviolar Lavage - Left
--- NOTE | 2021-07-01 16:44 | PN ---
PROGRESS NOTE Patient is seen for followup for acute kidney injury, currently with hemodialysis dependent renal failure. The patient remains on the vent. His face appears to be significantly more swollen. He is currently being dialyzed on a daily basis. We had about 2 L of ultrafiltration yesterday. The patient remains on the vent. FiO2 is at 75%. EXAMINATION: This morning, blood pressure 118/47, heart rate 103 per minute. Patient is afebrile. Examination shows significant edema bilateral lower extremities. Significant facial edema with subcutaneous air. DRAW FRAME TENDER exam cannot be performed. Abdomen is distended, soft, obese. LAB: Show hemoglobin 7.2, sodium 133, potassium 5.0, chloride 98, BUN 59, serum creatinine 3.9, pH was 7.16, and hemoglobin 7.2. ASSESSMENT: 1. Acute kidney injury, acute tubular necrosis, oliguric, dialysis dependent, receiving daily dialysis mostly for ultrafiltration. Serum creatinine staying at about close to 3-3.9 mg/dL. 2. Severe volume overload. 3. Acute hypoxic respiratory failure secondary to Covid pneumonia/ARDS requiring high FiO2. Sputum cultures had indicated Aspergillus and Pseudomonas. Extensive necroses were noted in the bronchial airways on the repeat bronchoscopy. 4. Subcutaneous emphysema and pneumomediastinum. 5. Chronic atrial fibrillation, status post IV amiodarone, maintained on Eliquis, now on oral amiodarone. 6. Bacterial pneumonia/fungal pneumonia maintained on antifungals and antibiotics. 7. Covid pneumonia. PLAN: Continue daily dialysis. We will increase UF as tolerated. MMODL / IJN: [id number] /
--- NOTE | 2021-07-01 17:20 | PN ---
PROGRESS NOTE DATE OF SERVICE: 07/01/2021 REASON FOR FOLLOWUP: Pneumonia. INTERVAL HISTORY: The patient remains to be afebrile. The patient is hemodynamically stable. The patient remains to be intubated with a trach. No significant purulent secretions thru the ET, diarrhea or any other changes reported by the nursing staff. PHYSICAL EXAMINATION: Blood pressure 97/43 with a pulse of 120, temperature 98. He is 92% on 85% FiO2. General description is an elderly male intubated on the vent. Respiratory system: Unlabored breathing, decreased intensity of breath sounds. No wheeze. Heart S1, S2. Regular rate and rhythm. Abdomen soft, no tenderness. LABS: Hemoglobin 7.1, white count 13.4, creatinine 3.90. 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 The patient is covered with voriconazole to continue while monitoring clinical course closely. Continue supportive care. MMODL / IJN: [id number] /
[2021-07-01] MEDS: NOREPINEPHRINE 8 MG in SODIUM CHLORIDE 0.9% 250 ML IV SCH (17:49)
[2021-07-01] MEDS: METOPROLOL TARTRATE 25 MG TAB PO SCH (19:51)
[2021-07-01] MEDS: CEFEPIME 1 GM in SODIUM CHLORIDE 0.9% 50 ML IVPB SCH (20:42)
[2021-07-02 00:01] LABS: Glucose,Whole Blood 115 mg/dL (75-99)
[2021-07-02] MEDS: fentaNYL (PF). 1,000 MCG in SODIUM CHLORIDE 0.9% 80 ML IV SCH ×2 (00:02→14:36)
[2021-07-02] MEDS: ARTIFICIAL TEARS-HYPROMELLOSE DROPS 15 ML BTL BOTH EYES SCH ×6 (00:02→20:52)
[2021-07-02] MEDS: CISATRACURIUM 200 MG in SODIUM CHLORIDE 0.9% 180 ML IV SCH ×2 (03:14→23:58)
--- NOTE | 2021-07-02 03:26 | P.PN ---
Subjective Progress Note Date: 07/01/21 This is a 75-year-old male who was recently admitted with COVID-19 infection with acute hypoxic respiratory failure and is being closely monitored. Pulmonary following closely and patient is maintained on dexamethasone along with Lovenox and vitamin and zinc supplements. Patient currently maintained on 15 L high flow via nasal cannula with supplemental use of 15 L nonrebreather. Patient states his breathing is slightly improved and not requiring a nonrebreather as often. Instructed the patient to use incentive spirometer and increase activity as tolerated. Patient continues to be extremely weak and will have PT/OT evaluate the patient once more stable. 06/06/2021 Patient is seen in follow-up this morning states his shortness of breath has slightly worsened and his recovery time and working to breathe has become more difficult. Patient is continued on 15 L high flow along with nonrebreather intermittently and having to use it more frequently today he states. Incentive spirometer at the bedside and instructed the patient to continue to use at least 10 times every hour while awake and encouraged increased activity as tolerated. Patient states he walked to the bathroom with assistance and became extremely dyspneic. Patient is afebrile. D-dimer is 4.72 with a WBC of 16 and hemoglobin is stable at 15.4. Sodium is 138 with a potassium of 4.5 and current creatinine is 0.63. LDH is elevated at 2492 and CRP is 6.5. Chest x-ray today shows findings consistent with COVID-19 pneumonia with bilateral interstitial and airspace disease present. 06/07/2021 Patient is seen and evaluated in follow up this morning and is having increasing shortness of breath and on 15L high flow via NC and 15 L non-rebreather. Patient has been back in bed and attempting position changes frequently along with prone position. Patient continues on lovenox, baracitinib, vitamin and zinc supplement s,and steroids. Pulmonary following closely. 06/10/2021 Patient is seen in follow up this morning and is now maintained on airvo at 60% and continues to be extremely dyspneic with minimal exertion. Patient also continues with 15L Non rebreather as needed. Patient is maintained on lovenox along with baricitinib and IV steroids with pulmonary following. Patient states he has no reserve and taking longer periods of time to recover with attempting to position change or use the urinal. 06/11/2021 Patient is seen in follow-up and evaluated this morning and is continued on Airvo and maintaining oxygen saturations in the low 90s. Pulmonary following closely. Patient is afebrile. Patient is continued on vitamin and zinc supplements along with Baricitinib and subcutaneous Lovenox along with IV steroids and will continue. Patient's d-dimer today is elevated at 18.25 and will increase Lovenox to 50 subcu twice daily. White blood count today is 18.6 and hemoglobin is stable at 13.7, sodium is 139 with a potassium of 4.3 current creatinine is 0.7. Inflammatory markers are elevated with some trending down and CRP is 1.5, LDH is 1968 and alk phos is 168. Patient is afebrile. Patient continues to be extremely anxious and will continue Xanax as needed. Encouraged increase activity as tolerated and continued position changes with incentive spirometer use. 06/12/2021 Patient is seen in follow-up this morning with no acute issues noted overnight. Patient continues on Airvo with a flow rate of 55 and FiO2 of 80% maintaining oxygen saturations above 90%. Pulmonary following closely and we'll continue to wean as tolerated. Patient continues on Lovenox twice daily along with vitamin and zinc supplements and continued on IV steroids along with albuterol and Baricitinib. White blood count is 23.7 with a hemoglobin of 14.1, sodium is 139 with a potassium of 4.4 and current creatinine is 0.62. Will repeat chest x-ray along with inflammatory markers in the morning. 06/13/2021 Patient is seen and evaluated in follow-up as morning and continues to be on Airvo. Patient appears to be more raspy with some sputum and congested today with a hoarse voice. Infectious disease and pulmonary following closely. Sputum culture from 06/02 just today preliminary showing gram-negative bacilli along with Essence albicans and patient is being started on IV cefepime with repeat sputum culture ordered along with oral Diflucan. White blood count is 23.5 with hemoglobin of 13.8, sodium is 137 and potassium is 5.5 and current creatinine is 0.55. LFTs are mildly elevated. Repeat d-dimer along with CRP and LDH have been ordered. Will repeat a.m. labs. Chest x-ray today shows con tinued peripheral and lower lung interstitial infiltrates of Covid pneumonia without significant change. 06/14/2021 Patient is seen and evaluated in follow-up this morning continues to be dyspneic and requesting to go to the bed as he has been sitting up in the chair all day. Patient has been started on Diflucan along with IV cefepime and sputum culture from 06/02/2021 resulted showing Pseudomonas aeruginosa along with Essence albicans. Infectious disease is following closely. Patient is completing Baricitinib and will be transitioned to oral prednisone taper with pulmonary following closely. Patient has been started on eliquis. D-dimer today has trended down to 11.02, LDH is 2178, CRP is 3.2, liver functions trending down. White blood count slightly trending down at 20.2 and hemoglobin is stable at 13.7, sodium is 136 with a potassium of 4.3 and current creatinine is 0.57. Continues to have a mildly raspy voice with some throat dryness and will add Cepacol. 06/15/2021 Patient evaluated in bed and is resting on the BiPAP in the intensive care unit, he had desaturated this morning will be moved to the bathroom and initially was on a 15L HF, however is now requiring BiPAP. Patient was started on a Precedex drip. Repeat chest x-ray today which revealed persistent multifocal and confluent bilateral reticulonodular opacities is consistent with known coronary infection more prominent in the lower lungs. Patient finished a course of therapy with Baricitinib and transitioned to oral prednisone. Labs reviewed today include a white blood cell count 21.2, hemoglobin of 12.5. Blood gases show a pO2 of 32 and O2 saturation of 50.3. Chloride is 110, CO2 20, sodium 137, potassium 4. LDH is worse today at 2277, alk phos 158, CRP is trending upwards of 4.6. Patient has remained afebrile, heart rate is now 83, respirations 32, blood pressure 124/68. Oxygen saturation is maintaining in the mid to high 80s on 100% BiPAP. Patient is nothing by mouth and oral medications are unable to be given. Patient is on IV cefepime for a sputum culture positive for Pseudomonas. He is IV Diflucan for oral candidiasis that was improving as of yesterday. 06/16/2021 Patient is evaluated in the intensive care unit, he is status post intubation and has NG tube in place. Labs reviewed today included white blood cell, 44.2, d-dimer greater than 34. ABGs from the A-line included a pH of 7.15, pCO2 of 71, total CO2 is 27 and oxygen saturation of 98. Bicarb is 25 and his pO2 is 107. Additional labs include a serum potassium 5.1, chloride of 109, BUN of 27, creatinine 1.06. Vital signs include a heart rate of 123 tachycardia, respiratory rate of 36, blood pressure 100/50, he is 98% oxygen saturation. Patient is on vasopressors for his blood pressure. Repeat blood cultures are negative. Patient is receiving propofol for sedation. His chest x-ray was reviewed which is showing bilateral pulmonary infiltrates demonstrating COVID- 19 pneumonia with ARDS. Patient is still getting IV cefepime for a sputum culture Pseudomonas although his pro calcitonin level is 0.03 which is not usually indicative of a bacterial infection. Additional inflammatory markers remain elevated. Patient did receive 2 L saline bolus. Repeat labs in the morning, prognosis is guarded for this patient. 06/17/2021 Patient is seen in follow-up continues to be monitored closely in the ICU with multiple medical consultations following. Prognosis is extremely guarded. Patient's respiratory status significantly worsened requiring mechanical ventilation and intubation and currently patient is sedated. White blood count is worsened at 26.1 and hemoglobin is 12.2, d-dimer is 27.06, ABG is 7.16 pH with a pCO2 of 57 and a pO2 of 68 and bicarb is 20, sodium is 140 with a potassium of 5.0 and current creatinine has worsened at 2.29 pro calcitonin is 24.40. Infectious disease along with pulmonary investment accountant following closely. Patient continues on cefepime along with eliquis, vitamin and zinc supplements and patient has finished Baricitinib. Patient was on oral Decadron and is being transitioned back to IV dexamethasone along with Diflucan. Patient was given a dose of IV Lasix and nephrology has been consulted. Cardiology consulted as well and patient is currently on amiodarone drip along with Cleviprex and currently sedated on propofol. Patient also has norepinephrine drip as well. Patient being started on sodium bicarb drip. Patient also has low-grade fevers. 06/18/2021 Patient is seen in follow up in the ICU and maintained on mechanical vent intubated and sedated. Patient continues on NImbex, sodium bicarb, amiodarone, and being started on fentanyl as IV lasix drip with multiple medical consultations following. Kidney functions continue to deteriorate with nephrology following closely. Discussion being had about possible hemodialysis if kidney functions continue to worsen. Creatinine currently 3.69 today. 06/19/2021 Patient remains on mechanical vent with minimal urine output note and extensive volume overload with worsening kidney functions and would like to proceed with hemodialysis catheter placement with nephrology following closely. Multiple consultations following and Dr. Mann consulted for hemodialysis catheter placement and will hold eliquis. Amiodarone being transitioned to oral with cardiology following closely. Continue close monitoring in the ICU. Overall Prognosis remains extremely poor and guarded. 06/20/2021 Patient is seen and evaluated in follow-up continue to be closely monitored with multiple medical consultations following in the ICU. Patient remains intubated on mechanical ventilation and sedated. Kidney functions continue to worsen and patient is an extensive volume overload and has received dialysis catheter today and will initiate hemodialysis. Patient was maintained on IV Lasix drip which is being transitioned to IV push Lasix twice daily with nephrology following closely. Patient also continues on IV cefepime along with dexamethasone, vitamin and zinc supplements and continues on eliquis as well. White blood count 11.9 and hemoglobin is 9.6, platelets are 61 and d-dimer is 8.40. Sodium is 135 with a potassium of 5.0 and current BUN is 99 with a creatinine of 5.23. LDH is 1015 and pro calcitonin is 13.10. Prognosis remains extremely guarded. 06/21/2021 Patient is evaluated in follow up this morning and continues to be monitored closely in the ICU. On mechanical vent with an FI02 of 50%. Currently receiving hemodialysis and will likely require daily treatments if tolerated for extensive overload. Patient continues on IV lasix twice daily along with Nimbex, propofol, and fentanyl. Chest xray done today. Patient continues on IV cefepime with most recent repeat sputum culture revealing no growth. Infectious disease following closely. 06/22/2021 Patient remains intubated in the ICU, on ventilatory before meals settings, tidal volume 450, 50% FiO2, PEEP of 16, saturating 80%. ABG showing pO2 66, pCO2 42, pH 7.32, he was dialyzed for 2-1/2 L removed., He is making urine He remains sedated with propofol and he is paralyzed with Nimbex. His sputum is growing pseudomonas receiving antimicrobial therapy of cefepime, ID is following. No fever this morning, blood pressure 09/26/1939/50. Chest x-ray showing extensive bilateral airspace disease, correlate for pneumonia or ARDS. In atrial fibrillation with controlled ventricular rate 06/23/2021 Patient remains intubated on ventilatory support in the ICU, currently on assist control, 55% FiO2, PEEP of 14, TG 450. ABG this morning showing pH 7.31, pCO2 43, pO2 54, bicarb 22. O2 saturations marginal 90-91%, blood pressure stable. He remains in atrial fibrillation, with controlled ventricular rate, antic oagulated with Eliquis. Labs today show sodium 135, creatinine 4.18, WBC 12.7, hemoglobin 8.3 platelets 40. He is on IV Lasix, low urine output 270 ml yesterday Continue systemic steroids of Decadron 6 daily, eyes receiving antimicrobial therapy with cefepime, and fluconazole. sedated with fentanyl. 06/24/2021 Patient is seen and evaluated continues to be closely monitored in the ICU. Patient is currently receiving hemodialysis with an attempt of 2 L removal as the goal is 3 although patient's blood pressure is not tolerating. Nephrology and pulmonary investment accountant following closely. General surgery has been consulted for possible PEG and trach tube placement. Patient continues on Cleviprex along with fentanyl and propofol, IV dexamethasone, vitamin and zinc supplements, scheduled Reglan and IV cefepime. No reported bowel movements and patient not tolerating tube feeds with a large amount of residual noted in the NG. Chest x- ray today shows interval development of pneumomediastinum is suspected with arts and progression of subcutaneous emphysema. 06/25/2021 Patient is seen this morning in follow-up continues to be closely monitored in the ICU with multiple medical consultations following. Patient did not receive hemodialysis today and plan is scheduled for tomorrow with nephrology following closely. Eliquis remains on hold as general surgery plans for tracheostomy and PEG tube placement tomorrow. Patient continues to have no bowel movement and have ordered fleets enema and will continue with bowel regimen. Chest x-ray today shows continued extensive overlying subcutaneous emphysema with pneumomediastinum and bilateral compliant reticulonodular opacities related to COVID-19 infection again noted with no significant change from previous. Patient is maintained on IV cefepime along with Cleviprex, IV dexamethasone, fentanyl and propofol, scheduled Reglan and is also being started on sodium bicarb. 06/26/2021 Patient is seen and evaluated this morning continues to be on mechanical vent and intubated and sedated being closely monitored in the ICU. Multiple medical consultations following including general surgery and plan is for tracheostomy and PEG tube placement today. Eliquis has been on hold along with tube feeds and will discuss with surgery about initiating tube feeds and resuming anticoagulant. Per nursing staff patient had small amount of blood noted at the NG tube along with patient having a bowel movement with blood noted and hemoglo bin today is 7.9, platelets are 66. Patient also continues on IV cefepime along with IV dexamethasone, vitamin and zinc supplements and will continue. Patient maintained on Cleviprex along with fentanyl and propofol. Patient is scheduled to receive dialysis today with nephrology following closely. Chest x-ray today personally reviewed by me shows possible interval development of right-sided pn eumothorax although pneumothorax evaluation is limited due to extensive subcutaneous emphysema present bilaterally along with worsening right lower lobe consolidation, diffuse bilateral infiltrates. Pulmonary investment accountant is following closely. 06/27/2021 Patient is seen and evaluated in follow-up today status post receiving tracheostomy and continues to be sedated on the vent and currently receiving hemodialysis today. Patient continues to be closely monitored in the ICU with multiple medical consultations following. Patient continues to have extensive swelling and edema with noted subcutaneous emphysema that continues to worsen. PEG tube was also attempted by surgery and unsuccessful given the abdominal wall thickening and extensive edema noted. NG tube to be replaced and will continue tube feedings via NG. Patient did receive hemodialysis yesterday and able to tolerate approximately 2-2-1/2 L although blood pressure continued to drop and will continue with 2 L per nephrology. Patient continues on IV cefepime along with Nimbex, IV dexamethasone, fentanyl and propofol. Patient also continues on vitamin and zinc supplements and Eliquis has been resumed. 06/28/2021 Patient is evaluated this morning and continues to be in the ICU being closely monitored. Multiple medical consultations following including nephrology. Patient has been receiving daily hemodialysis as he continues to have extensive volume overload and edema noted throughout including the scrotum. Facial s ubcutaneous emphysema has worsened and continues to show on chest xray. Patient is also having some nasal bleeding and eliquis has been placed on hold. Blood pressure is elevated and will start Cleviprex. Patient continues on IV cefepime as well. 07/01/2021 Patient continues to be in the ICU on mechanical vent via trach and sedated. Multiple medical consultations following and patient is receiving daily hemodialysis with nephrology following closely. chest xray today shows no significant changes from previous exam. Patient is status post bronchoscopy and cultures pending. Patient is continued on cefepime and antifungals with ID following closely. Prognosis remains quite guarded. Labs: Sodium is 133, potassium is 5.0, BUN 59, creatinine is 3.9 to, WBC 13.4, hemoglobin is 7.2, platelets 485, ldh 679, crp 8.6, triglyceride 365, d dimer 6.2 Review of systems: Unable to complete a full review of symptoms as patient is sedated and on a ventilator via recent tracheostomy placement. Active Medications Acetaminophen (Acetaminophen Tab 325 Mg Tab) 650 mg PO Q6HR PRN PRN Reason: Fever and/ or Mild Pain Last Admin: 06/14/21 22:22 Dose: 650 mg Documented by: Albuterol Sulfate (Albuterol Hfa Inhaler) 2 puff INHALATION RT-QID [facility] Last Admin: 07/01/21 20:14 Dose: 2 puff Documented by: Albuterol Sulfate (Albuterol Hfa Inhaler) 2 puff INHALATION RT-QID PRN PRN Reason: Shortness Of Breath Or Wheezing Last Admin: 06/15/21 03:30 Dose: 2 puff Documented by: Amiodarone HCl (Amiodarone 200 Mg Tab) 200 mg PO BID [facility] Last Admin: 07/01/21 20:42 Dose: 200 mg Documented by: Artificial Tears (Artificial Tears-Hypromellose Drops 15 Ml Btl) 2 drops BOTH EYES Q4HR [facility] Last Admin: 07/02/21 00:02 Dose: 2 drops Documented by: Ascorbic Acid (Ascorbic Acid 500 Mg Tab) 500 mg PO DAILY [facility] Last Admin: 07/01/21 09:28 Dose: 500 mg Documented by: Bisacodyl (Bisacodyl 10 Mg Supp) 10 mg RECTAL DAILY [facility] Last Admin: 07/01/21 09:30 Dose: 10 mg Documented by: Calcium Acetate (Calcium Acetate 667 Mg Tab) 667 mg PO TID-W/MEALS [facility] Last Admin: 07/01/21 17:46 Dose: 667 mg Documented by: Chlorhexidine Gluconate (Chlorhexidine Gluconate 15 Ml Cup) 15 ml MUCOUS MEM BID [facility] Last Admin: 07/01/21 20:42 Dose: 15 ml Documented by: Cholecalciferol (Cholecalciferol 25 Mcg (1000 Iu) Tablet) 25 mcg PO DAILY [facility] Last Admin: 07/01/21 09:29 Dose: 25 mcg Documented by: Cyanocobalamin (Cyanocobalamin 500 Mcg Tab) 1,000 mcg PO DAILY [facility] Last Admin: 07/01/21 09:29 Dose: 1,000 mcg Documented by: Darbepoetin Shalom (Darbepoetin Shalom 40 Mcg/0.4 Ml Syringe) 40 mcg SQ Q7D [facility] Last Admin: 06/27/21 12:57 Dose: 40 mcg Documented by: Dexamethasone Sodium Phosphate (Dexamethasone Sod Phosphate 4 Mg/Ml 1 Ml Vial) 4 mg IV DAILY [facility] Last Admin: 07/01/21 09:29 Dose: 4 mg Documented by: Propofol 1,000 mg/ IV Solution 100 mls @ 0 mls/hr IV .Q0M [facility]; Protocol Last Admin: 07/02/21 03:14 Dose: 50 mcg/kg/min, 35.04 mls/hr Documented by: Norepinephrine Bitartrate 8 mg (/ Sodium Chloride) 258 mls @ 9.482 mls/hr IV .Q24H [facility]; Protocol Last Titration: 07/01/21 21:30 Dose: 0.04 mcg/kg/min, 7.585 mls/hr Documented by: Cisatracurium Besylate 200 mg/ (Sodium Chloride) 200 mls @ 5.88 mls/hr IV .Q24H [facility]; Protocol Last Admin: 07/02/21 03:14 Dose: 3 mcg/kg/min, 17.64 mls/hr Documented by: Fentanyl Citrate 1,000 mcg/ (Sodium Chloride) 100 mls @ 2.765 mls/hr IV .Q24H [facility]; Protocol Last Admin: 07/02/21 00:02 Dose: 0.6 mcg/kg/hr, 6.636 mls/hr Documented by: Cefepime HCl 1 gm/ Sodium (Chloride) 50 mls @ 12.5 mls/hr IVPB HS [facility] Last Admin: 07/01/21 20:42 Dose: 12.5 mls/hr Documented by: Clevidipine 25 mg/ IV Solution 50 mls @ 2 mls/hr IV .Q24H [facility]; Protocol Last Admin: 07/01/21 13:53 Dose: Not Given Documented by: Voriconazole 300 mg/ Sodium (Chloride) 100 mls @ 125 mls/hr IVPB Q12HR [facility] Last Admin: 07/01/21 20:42 Dose: 125 mls/hr Documented by: Metoclopramide HCl (Metoclopramide 5 Mg/Ml 2 Ml Vial) 5 mg IVP Q8H [facility] Last Admin: 07/01/21 20:41 Dose: 5 mg Documented by: Metoprolol Tartrate (Metoprolol Tartrate 25 Mg Tab) 25 mg PO DAILY [facility] Last Admin: 07/01/21 19:51 Dose: Not Given Documented by: Pantoprazole Sodium (Pantoprazole 40 Mg/10 Ml Vial) 40 mg IVP BID [facility] Last Admin: 07/01/21 20:42 Dose: 40 mg Documented by: Senna/Docusate Sodium (Sennosides-Docusate Sodium 1 Each Tab) 1 each PO DAILY [facility] Last Admin: 07/01/21 09:28 Dose: 1 each Documented by: Zinc Sulfate (Zinc Sulfate 220 Mg Cap) 220 mg PO DAILY [facility] Last Admin: 07/01/21 09:29 Dose: 220 mg Documented by: Physical exam: Gen: This is a 75-year-old male sedated and intubated on propofol and mechanical ventilation. Extensive edema and swelling noted throughout and more so in the face today. HEENT: Head is atraumatic, normocephalic. Pupils equal, round. Sclerae is anicteric. NG tube noted with blood surrounding the tube as well NECK: Supple. No JVD. No lymphadenopathy. No thyromegaly. Extensive s ubcutaneous emphysema of the face and neck traveling down the arms and continues in the chest LUNGS: Diminished breath sounds bilaterally with scattered coarse rhonchi and crackles noted at the bases. Extensive subcutaneous emphysema persists HEART: Irregular S1, S2 are muffled ABDOMEN: Soft. Edematous. obese. Hypoactive Bowel sounds are present. No masses. No guarding or rigidity noted. EXTREMITIES: Extensive pitting edema noted of upper and lower bilateral extremities and much of the body. 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 Extensive Subcutaneous emphysema with pneumomediastinum as noted on x-ray acute renal failure likely ATN with worsening kidney functions and minimal urine output requiring hemodialysis volume overload secondary to ARF metabolic acidosis afib with RVR currently rate controlled on oral amiodarone and metoprolol Lactic acidosis secondary to above Initial sputum culture showing Essence albicans and pseudomonas aeruginosa and maintained on IV cefepime repeat sputum culture showing aspergillus not fumigatus Oral candidiasis, sputum cultures from 06/02/2021 Essence albicans Extensive interstitial bilateral COVID-19 pneumonia Elevated white blood count possibly secondary to above Possible subsegmental pulmonary embolism ruled out History of atrial fibrillation Anxiety Remote history of nicotine dependence GI prophylaxis: Protonix DVT prophylaxis: On eliquis which is on hold for bleeding Full code Plan: Recommend to continue with current medications and continue to closely monitor in the ICU. Patient remains on mechanical ventilation and intubated. Patient received tracheostomy placement with surgery. Given extreme abdominal wall thickening and edema unsuccessful for PEG tube placement and have resumed NG t ube and will continue tube feeds via NG tube. Patient continues on antifungals with ID following closely as well. repeat sputum culture showing aspergillus not fumigatus with pseudomonas. Patient continues on vitamin and zinc supplements IV dexamethasone and will continue. Patient has completed Ba ricitinib. Patient with extensive volume overload and has been receiving daily hemodialysis with nephrology following closely. status post bronchial washing awaiting cultures. Will repeat a.m. labs. Prognosis is extremely guarded and will continue to monitor closely. Objective - Vital Signs Vital signs: Vital Signs Temp 97.0 F L 07/01/21 08:00 Pulse 101 H 07/01/21 08:00 Resp 36 H 07/01/21 08:00 BP 149/81 07/01/21 00:00 Pulse Ox 93 L 07/01/21 08:00 Intake & Output 06/30/21 07/01/21 07/01/21 18:59 06:59 18:59 Intake Total 4176.469 8315.647 136 Output Total 10 10 Balance 0115.412 3403.647 136 Weight 122.3 kg Intake: IV 273 276 46 0.9 240 240 40 Pressure bag 33 36 6 Intake, IV Titration 589.501 787.647 Amount Cisatracurium 200 mg In 192.668 319.186 Sodium Chloride 0.9% 180 ml @ 1 MCG/KG/MIN 5.88 mls/hr IV .Q24H [facility] Rx#: [id number] Clevidipine Butyrate 25 9.233 mg In Empty Bag 1 bag @ 1 MG/HR 2 mls/hr IV .Q24H [facility] Rx#:[id number] Voriconazole 300 mg In 100 Sodium Chloride 0.9% 100 ml @ 125 mls/hr IVPB Q12HR [facility] Rx#:[id number] fentaNYL (PF). 1,000 mcg 100 68.461 In Sodium Chloride 0.9% 80 ml @ 0.25 MCG/KG/HR 2. 765 mls/hr IV .Q24H [facility] Rx#:[id number] propofoL 1,000 mg In 187.6 400 Empty Bag 1 bag @ Titrate IV .Q0M [facility] Rx#: [id number] Tube Feeding 330 360 60 Other 200 90 30 Output: Urine 10 10 Other: Voiding Method Indwelling Catheter Indwelling Catheter ABP, PAP, CO, CI - Last Documented Arterial Blood Pressure 111/47 - Labs CBC & Chem 7: 07/01/21 09:14 07/01/21 09:14 Labs: Abnormal Lab Results - Last 24 Hours (Table) 06/30/21 06/30/21 06/30/21 Range/Units 07:30 11:36 17:36 Lymphocytes # (Manual) 0.47 L (1.0-4.8) k/uL Metamyelocytes # (Man) 0.09 H (0) k/uL Myelocytes # (Manual) 0.28 H (0) k/uL ABG pH (7.35-7.45) ABG pCO2 (35-45) mmHg ABG Total CO2 (19-24) mmol/L POC Glucose (mg/dL) 110 H 117 H (75-99) mg/dL C-Reactive Protein (<1.0) mg/dL 07/01/21 07/01/21 07/01/21 Range/Units 00:02 00:13 05:20 Lymphocytes # (Manual) (1.0-4.8) k/uL Metamyelocytes # (Man) (0) k/uL Myelocytes # (Manual) (0) k/uL ABG pH (7.35-7.45) ABG pCO2 (35-45) mmHg ABG Total CO2 (19-24) mmol/L POC Glucose (mg/dL) 102 H 101 H (75-99) mg/dL C-Reactive Protein 13.8 H (<1.0) mg/dL 07/01/21 07/01/21 Range/Units 05:21 05:45 Lymphocytes # (Manual) (1.0-4.8) k/uL Metamyelocytes # (Man) (0) k/uL Myelocytes # (Manual) (0) k/uL ABG pH 7.16 L* (7.35-7.45) ABG pCO2 66 H (35-45) mmHg ABG Total CO2 25 H (19-24) mmol/L POC Glucose (mg/dL) 102 H (75-99) mg/dL C-Reactive Protein (<1.0) mg/dL Microbiology - Last 24 Hours (Table) 06/30/21 10:00 Gram Stain - Preliminary Bronchoalviolar Lavage - Left Bronchial Washings Culture - Preliminary 06/30/21 10:00 Acid Fast Bacilli Culture - Preliminary Bronchoalviolar Lavage - Left 06/30/21 10:00 Fungal Culture - Preliminary Bronchoalviolar Lavage - Left
[2021-07-02] MEDS: METOCLOPRAMIDE 5 MG/ML 2 ML VIAL IVP SCH ×3 (03:59→20:49)
[2021-07-02 04:45] LABS: Albumin 2.2 g/dL (3.5-5.0); C Reactive Protein 6.2 mg/dL (<1.0); Calcium 8.5 mg/dL (8.4-10.2); Potassium 4.7 mmol/L (3.5-5.1); Total Bilirubin 0.5 mg/dL (0.2-1.3); Total Protein 4.9 g/dL (6.3-8.2)
[2021-07-02 05:14] LABS: Anisocytosis Slight; HCT 22.4 % (39.0-53.0); HGB 7.2 gm/dL (13.0-17.5); MCH 29.7 pg (25.0-35.0); MCHC 32.4 g/dL (31.0-37.0); MCV 91.8 fL (80.0-100.0); Mean Platelet Volume 9.8; Platelet Count 624 k/uL (150-450); Poikilocytosis Slight; RBC 2.44 m/uL (4.30-5.90); RDW 16.6 % (11.5-15.5); WBC 20.1 k/uL (3.8-10.6)
[2021-07-02 05:31] LABS: ABG Base Excess -7.9 mmol/L; ABG HCO3 22 mmol/L (21-25); ABG Oxygen Saturation 95.6 % (94-97); ABG PCO2 68 mmHg (35-45); ABG PO2 88 mmHg (83-108); ABG TCO2 24 mmol/L (19-24); Allen Test Performed? Yes
[2021-07-02 05:34] LABS: ABG PH 7.11 (7.35-7.45)
[2021-07-02 06:09] LABS: Glucose,Whole Blood 110 mg/dL (75-99)
[2021-07-02] MEDS: CALCIUM ACETATE 667 MG TAB PO SCH ×3 (06:39→15:20)
[2021-07-02 07:26] LABS: Band Neutrophils % 33 %; Lymphocytes # (M) 1.41 k/uL (1.0-4.8); Metamyelocytes % 4 %; Myelocytes % 1 %; Neutrophils % (M) 56 %; Nucleated Red Blood Cells 0 /100 WBC (0-0); Total Cells Counted 200
[2021-07-02 07:27] LABS: Basophilic Stippling Present; Large Platelets Present
[2021-07-02] MEDS: ALBUTEROL HFA INHALER INHALATION SCH ×4 (07:54→20:13)
--- NOTE | 2021-07-02 08:01 | XR ---
EXAMINATION TYPE: XR chest 1V portable DATE OF EXAM: 07/02/2021 Comparison: 07/01/2021 Clinical History: 75-year-old male CoVID pneumonia, pneumomediastinum Findings: NG tube courses below the diaphragm but the sidehole is at the level of GE junction. Consider further advancement by proximally 5 cm further into the stomach. Tracheostomy cannula. Left subclavian CVC t ip at the mid SVC level. There is severe subcutaneous emphysema bilaterally. The extensive air densit ies limits assessment of the underlying parenchyma. No definite sizable pneumothorax is seen. Some si milar mild pneumomediastinum may be present. Heart likely borderline in size. Bilateral patchy and co nfluent airspace disease likely similar. There may be slight improvement on the left. Impression: 1. Very limited exam due to severe bilateral subcutaneous emphysema. Persistent mild pneumomediastinu m is suspected. 2. Continued diffuse bilateral interstitial and airspace disease may have slight improvement on the l eft. 3. Consider advancement of the NG tube by 5 cm further into the stomach. The sidehole is at the GE ju nction level.
--- NOTE | 2021-07-02 09:13 | P.PN ---
Subjective Progress Note Date: 07/02/21, the patient remains in the intensive care units. This is a case of a COVID 19 related pneumonia with respiratory failure, intubated on mechanical ventilator. The patient is being seen for a follow-up. Remains sedated, paralyzed, intubated on mechanical ventilator and the patient remains on assist control mode at the rate of 36, tidal volume of 400, FiO2 of 70% with a PEEP of 14. The peak airway pressures are at 40. The static pressure is 33. The blood gases from today shows a pH of 7.15 with a pCO2 of 66 and pO2 of 84. Chest x- ray continues to show extensive bilateral pulmonary interstitial and alveolar infiltrates without any significant change. There is subcutaneous air and mediastinal air as noted. No cardiomegaly. No evidence of any pneumothorax. The patient has a number #8 Biv[address] tracheostomy tube in place. The patient remains on the mechanical ventilator. The patient had initial on 06/02/2021 that showed pseudomonas aeruginosa and Essence. Subsequently, the repeat cultures from 06/22/2021 was positive for Aspergillus, subsequent bronchoscopy was done on 06/30/2021 and the repeat cultures still pending for now. Meanwhile, the patient is covered with a combination of IV cefepime and voriconazole. Remains on Decadron 4 mg IV every 24 hours. The patient's course was also complicated by development of an acute kidney injury related to the COVID-19 related pneumonia. The patient was requiring daily hemodialysis. He had dialysis and 06/29/2021 with a total of 2 L of fluid was removed. The dialysis was done on 06/30/2021. Blood pressure remains on the higher side and the patient is currently on Cleviprex for blood pressure control. He continues to have significant amount of edema in his upper and lower extremities in addition to that the patient has scrotal edema. On examination, there is extensive subcutaneous emphysema in the face, neck, chest and upper extremity. Abdomen is distended soft. The patient remains sedated with propofol running at 50 mics of respiratory per minute and fentanyl at 0.6 mcg/kg per minute. The patient remains paralyzed with Nimbex at 3 mcg/kg per minute. Patient's is currently receiving enteral feeding for nutritional support with vital high protein at the rate of 30 mL an hour. Clinically, the patient continues to have extensive subcutaneous emphysema involving the face, neck, chest and upper extre mities. He has an NG tube in place. I reviewed a bronchoscopy images and the patient has extensive necrosis involving the airways mainly involving the right lung at the level of the right mainstem bronchus and bronchus intermedius. Highly suspicious for Aspergillus infection. Patient remains on voriconazole. 07/02/2021, the patient is being seen for a follow-up. Remains on a mechanical ventilator. He is a case of COVID-19 related pneumonia complicated by ARDS, extensive pneumomediastinum and subcutaneous emphysema without pneumothorax. This morning, he remains sedated and paralyzed. He is on propofol running at 50 mcg/kg per minute and the patient is also paralyzed with Nimbex at 3 mg/kg per minute. He is also on fentanyl at 0.6 mitral respiratory kilogram per hour. On a mechanical ventilator, his peak airway pressure is ranging between 41 and 44. His static airway pressure is 41. His airway pressures are slightly higher compared to yesterday. His blood gases from today shows a pH of 7.11 with a pCO2 of 68 and pO2 of 88. Terms of secretions, history secretions are scant. Nevertheless, the most recent bronchoalveolar lavage that was done showed positive Aspergillus species and we do suspect highly and Aspergillus infection knowing that there was extensive necrosis and blackening of the airway especially on the right along the right mainstem bronchus and there was excess amount of debris's identified and a previous bronchoscopy that was done by my partner. The patient remains on voriconazole. The patient remains also on IV cefepime. He does have extensive subcutaneous emphysema and the amount of emphysema is unchanged compared to yesterday. His face, neck, chest and upper extremities are extensively swollen. On today's evaluation, his tracheostomy tu be is in place and the patient has a #8 Bivona tracheostomy tube in place. He is returning his volumes adequately. No evidence of any leak around the tracheostomy tube. Hemodynamically, he was slightly hypotensive yesterday and the patient was started on norepinephrine infusion and currently is on norepinephrine running at 0.06 mcg/kg per minute. He remains on Decadron and the dose was reduced to 4 mg IV every 24 hours. He is receiving daily hemodialysis. He last had dialysis yesterday with a total of 2 L of fluid was removed. He is receiving enteral feeding for nutritional support. He has an NG tube in place. He is currently on vitamin HP at the rate of 20 mL an hour. Note that the patient is on no anticoagulation. He was having epistaxis earlier and his nostrils are intact bilaterally. He was taken off anticoagulants. Objective - Vital Signs Vital signs: Vital Signs Temp 98.0 F 07/02/21 04:00 Pulse 105 H 07/02/21 07:00 Resp 36 H 07/02/21 07:00 BP 96/59 07/02/21 04:00 Pulse Ox 93 L 07/02/21 07:00 Intake & Output 07/01/21 07/02/21 07/02/21 18:59 06:59 18:59 Intake Total 4365.289 9625.713 83 Output Total 2010 5 0 Balance -480.059 0457.713 83 Weight 122.3 kg 120.8 kg Intake: IV 276 430 43 0.9 240 200 40 Cefepime 1 gm In Sodium 100 Chloride 0.9% 50 ml @ 12. 5 mls/hr IVPB HS [facility] Rx#: [id number] Pressure bag 36 30 3 Voriconazole 300 mg In 100 Sodium Chloride 0.9% 100 ml @ 125 mls/hr IVPB Q12HR [facility] Rx#:[id number] Intake, IV Titration 590.028 558.713 Amount Cisatracurium 200 mg In 200 171.99 Sodium Chloride 0.9% 180 ml @ 1 MCG/KG/MIN 5.88 mls/hr IV .Q24H [facility] Rx#: [id number] Norepinephrine 8 mg In 0 96.142 Sodium Chloride 0.9% 250 ml @ 0.05 MCG/KG/MIN 9. 482 mls/hr IV .Q24H [facility] Rx#:[id number] fentaNYL (PF). 1,000 mcg 90.028 90.581 In Sodium Chloride 0.9% 80 ml @ 0.25 MCG/KG/HR 2. 765 mls/hr IV .Q24H [facility] Rx#:[id number] propofoL 1,000 mg In 300 200 Empty Bag 1 bag @ Titrate IV .Q0M [facility] Rx#: [id number] Tube Feeding 360 140 40 Other 60 90 Output: Urine 10 5 0 Hemodialysis 2000 Other: Voiding Method Indwelling Catheter Indwelling Catheter ABP, PAP, CO, CI - Last Documented Arterial Blood Pressure 121/48 - Exam The patient has a tacheostomy tube, sedated and paralyzed, generally swollen 75-year-old white male, on assist-control mode of ventilation. Patient has sig nificant subcutaneous air present in his face, eyelids, neck, bilateral chest, and bilateral arms HEAD: Normocephalic/atraumatic. EYES: Normal reaction of pupils, equal size. Conjunctiva pink, sclera white. NOSE: Clear with pink turbinates. THROAT: No erythema or exudates. NECK: No masses, no JVD, no thyroid enlargement, no adenopathy. The patient has a Bivona #8 tracheostomy tube CHEST: No chest wall deformity. Symmetrical expansion. LUNGS: Equal air entry with diminished breath sounds bilaterally, with diffuse crackles and there is subcutaneous emphysema as noted CVS: Regular rate and rhythm, normal S1 and S2, no gallops, no murmurs, no rubs ABDOMEN: Soft, nontender. No hepatosplenomegaly, normal bowel sounds, no guarding or rigidity. PEG tube is in place with tube feedings infusing EXTREMITIES: No clubbing, 1+ generalized edema no cyanosis, 2+ pulses and upper and lower extremities. Patient has right groin temporary hemodialysis catheter in place MUSCULOSKELETAL: Muscle strength and tone normal. SPINE: No scoliosis or deformity SKIN: No rashes CENTRAL NERVOUS SYSTEM: Sedated, intubated and paralyzed No focal deficits, tone developed nausea or in place, is normal in all 4 extremities. - Labs CBC & Chem 7: 07/02/21 04:00 07/02/21 04:00 Labs: Abnormal Lab Results - Last 24 Hours (Table) 07/01/21 07/01/21 07/01/21 Range/Units 05:20 09:14 09:14 WBC 13.4 H (3.8-10.6) k/uL RBC 2.34 L (4.30-5.90) m/uL Hgb 7.2 L (13.0-17.5) gm/dL Hct 21.7 L (39.0-53.0) % RDW 16.3 H (11.5-15.5) % Plt Count 485 H (150-450) k/uL Neutrophils # (Manual) 9.70 H (1.3-7.7) k/uL Lymphocytes # (Manual) 0.80 L (1.0-4.8) k/uL Monocytes # (Manual) 1.61 H (0-1.0) k/uL Metamyelocytes # (Man) 0.27 H (0) k/uL Myelocytes # (Manual) 0.94 H (0) k/uL D-Dimer 6.20 H (<0.60) mg/L FEU ABG pH (7.35-7.45) ABG pCO2 (35-45) mmHg Sodium (137-145) mmol/L Carbon Dioxide (22-30) mmol/L BUN (9-20) mg/dL Creatinine (0.66-1.25) mg/dL Glucose (74-99) mg/dL POC Glucose (mg/dL) (75-99) mg/dL Lactate Dehydrogenase (313-618) U/L C-Reactive Protein (<1.0) mg/dL Total Protein (6.3-8.2) g/dL Albumin (3.5-5.0) g/dL Triglycerides (0.00-149.00) mg/dL Procalcitonin 1.92 H (0.02-0.09) ng/mL 07/01/21 07/01/21 07/01/21 Range/Units 09:14 11:23 23:58 WBC (3.8-10.6) k/uL RBC (4.30-5.90) m/uL Hgb (13.0-17.5) gm/dL Hct (39.0-53.0) % RDW (11.5-15.5) % Plt Count (150-450) k/uL Neutrophils # (Manual) (1.3-7.7) k/uL Lymphocytes # (Manual) (1.0-4.8) k/uL Monocytes # (Manual) (0-1.0) k/uL Metamyelocytes # (Man) (0) k/uL Myelocytes # (Manual) (0) k/uL D-Dimer (<0.60) mg/L FEU ABG pH (7.35-7.45) ABG pCO2 (35-45) mmHg Sodium 133 L (137-145) mmol/L Carbon Dioxide 21 L (22-30) mmol/L BUN 59 H (9-20) mg/dL Creatinine 3.90 H (0.66-1.25) mg/dL Glucose (74-99) mg/dL POC Glucose (mg/dL) 101 H 115 H (75-99) mg/dL Lactate Dehydrogenase 679 H (313-618) U/L C-Reactive Protein 8.6 H (<1.0) mg/dL Total Protein 4.9 L (6.3-8.2) g/dL Albumin 2.1 L (3.5-5.0) g/dL Triglycerides 365.00 H (0.00-149.00) mg/dL Procalcitonin (0.02-0.09) ng/mL 07/02/21 07/02/21 07/02/21 Range/Units 04:00 04:00 04:00 WBC 20.1 H (3.8-10.6) k/uL RBC 2.44 L (4.30-5.90) m/uL Hgb 7.2 L (13.0-17.5) gm/dL Hct 22.4 L (39.0-53.0) % RDW 16.6 H (11.5-15.5) % Plt Count 624 H (150-450) k/uL Neutrophils # (Manual) 17.80 H (1.3-7.7) k/uL Lymphocytes # (Manual) (1.0-4.8) k/uL Monocytes # (Manual) (0-1.0) k/uL Metamyelocytes # (Man) 0.80 H (0) k/uL Myelocytes # (Manual) 0.20 H (0) k/uL D-Dimer 6.36 H (<0.60) mg/L FEU ABG pH (7.35-7.45) ABG pCO2 (35-45) mmHg Sodium 135 L (137-145) mmol/L Carbon Dioxide 19 L (22-30) mmol/L BUN 46 H (9-20) mg/dL Creatinine 2.95 H (0.66-1.25) mg/dL Glucose 100 H (74-99) mg/dL POC Glucose (mg/dL) (75-99) mg/dL Lactate Dehydrogenase 716 H (313-618) U/L C-Reactive Protein 6.2 H (<1.0) mg/dL Total Protein 4.9 L (6.3-8.2) g/dL Albumin 2.2 L (3.5-5.0) g/dL Triglycerides (0.00-149.00) mg/dL Procalcitonin (0.02-0.09) ng/mL 07/02/21 07/02/21 Range/Units 05:24 06:07 WBC (3.8-10.6) k/uL RBC (4.30-5.90) m/uL Hgb (13.0-17.5) gm/dL Hct (39.0-53.0) % RDW (11.5-15.5) % Plt Count (150-450) k/uL Neutrophils # (Manual) (1.3-7.7) k/uL Lymphocytes # (Manual) (1.0-4.8) k/uL Monocytes # (Manual) (0-1.0) k/uL Metamyelocytes # (Man) (0) k/uL Myelocytes # (Manual) (0) k/uL D-Dimer (<0.60) mg/L FEU ABG pH 7.11 L* (7.35-7.45) ABG pCO2 68 H (35-45) mmHg Sodium (137-145) mmol/L Carbon Dioxide (22-30) mmol/L BUN (9-20) mg/dL Creatinine (0.66-1.25) mg/dL Glucose (74-99) mg/dL POC Glucose (mg/dL) 110 H (75-99) mg/dL Lactate Dehydrogenase (313-618) U/L C-Reactive Protein (<1.0) mg/dL Total Protein (6.3-8.2) g/dL Albumin (3.5-5.0) g/dL Triglycerides (0.00-149.00) mg/dL Procalcitonin (0.02-0.09) ng/mL Microbiology - Last 24 Hours (Table) 06/30/21 10:00 Acid Fast Bacilli Smear - Final Bronchoalviolar Lavage - Left Acid Fast Bacilli Culture - Preliminary 06/30/21 10:00 Gram Stain - Preliminary Bronchoalviolar Lavage - Left Bronchial Washings Culture - Preliminary Aspergillus species Assessment and Plan Plan: 1 Acute hypoxic respiratory failure secondary to COVID-19 pneumonia, patient was not vaccinated. He failed BiPAP therapy, was intubated on 06/15/2021, he remains sedated and paralyzed on assist control mode of ventilation with a PEEP of 14 and FiO2 of 55% today. The patient developed prolonged respiratory failure requiring vent support and the patient has undergone a tracheostomy tube insertion on 06/28/2021 and the patient has a #[address] tube in place. Remains on Nimbex, Diprivan the course was also complicated by extensive subcutaneous emphysema, no complications with associated pneumonia. No evidence of any pneumothorax. . The patient is post bronchoscopy on 06/30/2021, awaiting final cultures. Earlier cultures indicated Aspergillus and Pseudomonas, still on a combination of voriconazole and cefepime. Based on the bronchoscopy note, there is extensive necrosis of the bronchial airways involving the right mainstem bronchus and the bronchus intermedius. Pictures from bronch was noted. Awaiting the results of the bronchioloalveolar lavage. Chest x-ray was noted. Blood gases was noted. The repeat bronchial alveolar lavage showing Aspergillus species and the patient remains on voriconazole. High suspicion for post COVID-19 related superinfection with a fungus/Aspergillus. There was extensive amount of necrosis and necrotic debris's along the right lung on a recent bronchial alveolar lavage. 2 Subcutaneous emphysema, and pneumomediastinum. subcutaneous emphysema , essentially unchanged compared to yesterday 3 Acute kidney injury, patient was started on hemodialysis on 06/20/2021, and the patient is receiving periodic hemodialysis, last session was yesterday on 07/01/2021 with a total of 2 L of fluid was removed. 4 History of chronic atrial fibrillation, with recent RVR, currently on amiodarone and Eliquis for anticoagulation him a the patient is having episodes this of atrial fibrillation, currently is in sinus, the patient was taken off and to coagulation because of issues related to epistaxis. 5 Pseudomonas aeruginosa in his sputum culture, possibly related to immunosuppression, currently on Zosyn, and Diflucan for Essence albicans in the sputum culture. Most recent sputum culture from 06/22/2021 shows Aspergillus not fumigatus. Current antibiotic coverage includes cefepime and voriconazole 6 Extensive oropharyngeal candidiasis, patient was on Diflucan, currently on voriconazole 7 Leukocytosis, resolved, and white blood cell count is 20.1 8 Elevated d-dimer, and inflammatory markers related to acute COVID-19 pneumonia, patient is ooff Eliquis, inflammatory markers are slightly improved but still remain elevated 9 Fluid overload and the patient is undergoing hemodialysis periodically 10 hypotension, currently on low dose norepinephrine infusion for hemodynamic support. Could be septic based on the above. Plan: Continue ventilator support The patient is post bronchoscopy and bronchial alveolar lavage. The patient also had an extensive amount of endobronchial debris's removed from the right lung , awaiting the results of the bronchial lavage collected from yesterday, urinary cultures again showing Aspergillus species. The patient remains on voriconazole. May consider repeating the bronchoscopy. Daily chest x-ray and blood gases Continue antibiotic coverage Hemodialysis per nephrology , suggest dialysis today Continue Decadron, continue antibiotics Continue tube feedings, continue stool softeners and Reglan Overall prognosis is guarded Follow-up chest x-ray labs, inflammatory markers tomorrow Daily labs, daily blood gas Enteral feeding for nutritional support Start Eliquis at 2.5 mg by mouth twice a day and watch for any signs of bleeding Unfortunately the prognosis extremely poor. The patient has signs of multi system organ failure post COVID-19 related pneumonia and ARDS. I had a lengthy discussion with the family yesterday. I spoke to the daughter and the . Family was informed of the poor prognosis. The family wanted to proceed with ongoing treatment with understanding that the outcome is poor and the patient has a high likelihood for mortality/staph due to above-mentioned comorbidities. We'll continue to follow. Critical care sindy, >30 min Time with Patient: Greater than 30
--- NOTE | 2021-07-02 11:03 | P.PN ---
Subjective Progress Note Date: 07/02/21 CHIEF COMPLAINT: COVID-19 pneumonia HISTORY OF PRESENT ILLNESS: Patient currently ICU for COVID-19 pneumonia. He is on mechanically ventilation. He is status post tracheostomy placement on 06/26/2021. PEG tube insertion was aborted. Unable to see light reflex during EGD. Patient has NG tube in place for tube feedings. Patient had bronchoscopy completed. Patient has subcutaneous emphysema. Afebrile FiO2 75% WBC 20.1 PHYSICAL EXAM: VITAL SIGNS: Reviewed. GENERAL: Well-developed in no acute distress. HEENT: No sclera icterus. Extraocular movements grossly intact. Moist buccal mucosa. Head is atraumatic, normocephalic. Tracheostomy site clean dry and intact ABDOMEN: Soft. NEUROLOGIC: On mechanical ventilation and sedated ASSESSMENT: 1. Acute hypoxic respiratory failure secondary to COVID-19 pneumonia. Patient requiring prolonged mechanical ventilation. Status post tracheostomy placement 2. Severe protein calorie malnutrition PLAN: -Continue ICU management -Continue supportive care -Continue tube feeds through NG tube Physician Mon[employer] Letterer note has been reviewed by physician. Signing provider agrees with the documented findings, assessment, and plan of care. Objective - Vital Signs Vital signs: Vital Signs Temp 98.0 F 07/02/21 04:00 Pulse 105 H 07/02/21 07:00 Resp 36 H 07/02/21 07:00 BP 96/59 07/02/21 04:00 Pulse Ox 93 L 07/02/21 07:00 Intake & Output 07/01/21 07/02/21 07/02/21 18:59 06:59 18:59 Intake Total 7842.878 2907.713 83 Output Total 2009 5 0 Balance -688.943 2193.713 83 Weight 122.3 kg 120.8 kg Intake: IV 276 430 43 0.9 240 200 40 Cefepime 1 gm In Sodium 100 Chloride 0.9% 50 ml @ 12. 5 mls/hr IVPB HS [facility] Rx#: [id number] Pressure bag 36 30 3 Voriconazole 300 mg In 100 Sodium Chloride 0.9% 100 ml @ 125 mls/hr IVPB Q12HR [facility] Rx#:[id number] Intake, IV Titration 590.028 558.713 Amount Cisatracurium 200 mg In 200 171.99 Sodium Chloride 0.9% 180 ml @ 1 MCG/KG/MIN 5.88 mls/hr IV .Q24H [facility] Rx#: [id number] Norepinephrine 8 mg In 0 96.142 Sodium Chloride 0.9% 250 ml @ 0.05 MCG/KG/MIN 9. 482 mls/hr IV .Q24H [facility] Rx#:[id number] fentaNYL (PF). 1,000 mcg 90.028 90.581 In Sodium Chloride 0.9% 80 ml @ 0.25 MCG/KG/HR 2. 765 mls/hr IV .Q24H [facility] Rx#:[id number] propofoL 1,000 mg In 300 200 Empty Bag 1 bag @ Titrate IV .Q0M [facility] Rx#: [id number] Tube Feeding 360 140 40 Other 60 90 Output: Urine 10 5 0 Hemodialysis 2000 Other: Voiding Method Indwelling Catheter Indwelling Catheter ABP, PAP, CO, CI - Last Documented Arterial Blood Pressure 121/48 - Labs CBC & Chem 7: 07/02/21 04:00 07/02/21 04:00 Labs: Abnormal Lab Results - Last 24 Hours (Table) 07/01/21 07/01/21 07/01/21 Range/Units 05:20 09:14 09:14 WBC (3.8-10.6) k/uL RBC (4.30-5.90) m/uL Hgb (13.0-17.5) gm/dL Hct (39.0-53.0) % RDW (11.5-15.5) % Plt Count (150-450) k/uL Neutrophils # (Manual) 9.70 H (1.3-7.7) k/uL Lymphocytes # (Manual) 0.80 L (1.0-4.8) k/uL Monocytes # (Manual) 1.61 H (0-1.0) k/uL Metamyelocytes # (Man) 0.27 H (0) k/uL Myelocytes # (Manual) 0.94 H (0) k/uL D-Dimer (<0.60) mg/L FEU ABG pH (7.35-7.45) ABG pCO2 (35-45) mmHg Sodium (137-145) mmol/L Carbon Dioxide (22-30) mmol/L BUN (9-20) mg/dL Creatinine (0.66-1.25) mg/dL Glucose (74-99) mg/dL POC Glucose (mg/dL) (75-99) mg/dL Lactate Dehydrogenase (313-618) U/L C-Reactive Protein (<1.0) mg/dL Total Protein (6.3-8.2) g/dL Albumin (3.5-5.0) g/dL Triglycerides 365.00 H (0.00-149.00) mg/dL Procalcitonin 1.92 H (0.02-0.09) ng/mL 07/01/21 07/01/21 07/02/21 Range/Units 11:23 23:58 04:00 WBC 20.1 H (3.8-10.6) k/uL RBC 2.44 L (4.30-5.90) m/uL Hgb 7.2 L (13.0-17.5) gm/dL Hct 22.4 L (39.0-53.0) % RDW 16.6 H (11.5-15.5) % Plt Count 624 H (150-450) k/uL Neutrophils # (Manual) 17.80 H (1.3-7.7) k/uL Lymphocytes # (Manual) (1.0-4.8) k/uL Monocytes # (Manual) (0-1.0) k/uL Metamyelocytes # (Man) 0.80 H (0) k/uL Myelocytes # (Manual) 0.20 H (0) k/uL D-Dimer (<0.60) mg/L FEU ABG pH (7.35-7.45) ABG pCO2 (35-45) mmHg Sodium (137-145) mmol/L Carbon Dioxide (22-30) mmol/L BUN (9-20) mg/dL Creatinine (0.66-1.25) mg/dL Glucose (74-99) mg/dL POC Glucose (mg/dL) 101 H 115 H (75-99) mg/dL Lactate Dehydrogenase (313-618) U/L C-Reactive Protein (<1.0) mg/dL Total Protein (6.3-8.2) g/dL Albumin (3.5-5.0) g/dL Triglycerides (0.00-149.00) mg/dL Procalcitonin (0.02-0.09) ng/mL 07/02/21 07/02/21 07/02/21 Range/Units 04:00 04:00 05:24 WBC (3.8-10.6) k/uL RBC (4.30-5.90) m/uL Hgb (13.0-17.5) gm/dL Hct (39.0-53.0) % RDW (11.5-15.5) % Plt Count (150-450) k/uL Neutrophils # (Manual) (1.3-7.7) k/uL Lymphocytes # (Manual) (1.0-4.8) k/uL Monocytes # (Manual) (0-1.0) k/uL Metamyelocytes # (Man) (0) k/uL Myelocytes # (Manual) (0) k/uL D-Dimer 6.36 H (<0.60) mg/L FEU ABG pH 7.11 L* (7.35-7.45) ABG pCO2 68 H (35-45) mmHg Sodium 135 L (137-145) mmol/L Carbon Dioxide 19 L (22-30) mmol/L BUN 46 H (9-20) mg/dL Creatinine 2.95 H (0.66-1.25) mg/dL Glucose 100 H (74-99) mg/dL POC Glucose (mg/dL) (75-99) mg/dL Lactate Dehydrogenase 716 H (313-618) U/L C-Reactive Protein 6.2 H (<1.0) mg/dL Total Protein 4.9 L (6.3-8.2) g/dL Albumin 2.2 L (3.5-5.0) g/dL Triglycerides (0.00-149.00) mg/dL Procalcitonin (0.02-0.09) ng/mL 07/02/21 Range/Units 06:07 WBC (3.8-10.6) k/uL RBC (4.30-5.90) m/uL Hgb (13.0-17.5) gm/dL Hct (39.0-53.0) % RDW (11.5-15.5) % Plt Count (150-450) k/uL Neutrophils # (Manual) (1.3-7.7) k/uL Lymphocytes # (Manual) (1.0-4.8) k/uL Monocytes # (Manual) (0-1.0) k/uL Metamyelocytes # (Man) (0) k/uL Myelocytes # (Manual) (0) k/uL D-Dimer (<0.60) mg/L FEU ABG pH (7.35-7.45) ABG pCO2 (35-45) mmHg Sodium (137-145) mmol/L Carbon Dioxide (22-30) mmol/L BUN (9-20) mg/dL Creatinine (0.66-1.25) mg/dL Glucose (74-99) mg/dL POC Glucose (mg/dL) 110 H (75-99) mg/dL Lactate Dehydrogenase (313-618) U/L C-Reactive Protein (<1.0) mg/dL Total Protein (6.3-8.2) g/dL Albumin (3.5-5.0) g/dL Triglycerides (0.00-149.00) mg/dL Procalcitonin (0.02-0.09) ng/mL Microbiology - Last 24 Hours (Table) 06/30/21 10:00 Gram Stain - Final Bronchoalviolar Lavage - Left Bronchial Washings Culture - Final Aspergillus not fumigatus 06/30/21 10:00 Acid Fast Bacilli Smear - Final Bronchoalviolar Lavage - Left Acid Fast Bacilli Culture - Preliminary
[2021-07-02 11:32] LABS: Glucose,Whole Blood 107 mg/dL (75-99)
--- NOTE | 2021-07-02 12:00 | P.PN ---
Subjective Progress Note Date: 07/02/21 This is a 75-year-old male who was recently admitted with COVID-19 infection with acute hypoxic respiratory failure and is being closely monitored. Pulmonary following closely and patient is maintained on dexamethasone along with Lovenox and vitamin and zinc supplements. Patient currently maintained on 15 L high flow via nasal cannula with supplemental use of 15 L nonrebreather. Patient states his breathing is slightly improved and not requiring a nonrebreather as often. Instructed the patient to use incentive spirometer and increase activity as tolerated. Patient continues to be extremely weak and will have PT/OT evaluate the patient once more stable. 06/06/2021 Patient is seen in follow-up this morning states his shortness of breath has slightly worsened and his recovery time and working to breathe has become more difficult. Patient is continued on 15 L high flow along with nonrebreather intermittently and having to use it more frequently today he states. Incentive spirometer at the bedside and instructed the patient to continue to use at least 10 times every hour while awake and encouraged increased activity as tolerated. Patient states he walked to the bathroom with assistance and became extremely dyspneic. Patient is afebrile. D-dimer is 4.72 with a WBC of 16 and hemoglobin is stable at 15.4. Sodium is 138 with a potassium of 4.5 and current creatinine is 0.63. LDH is elevated at 2492 and CRP is 6.5. Chest x-ray today shows findings consistent with COVID-19 pneumonia with bilateral interstitial and airspace disease present. 06/07/2021 Patient is seen and evaluated in follow up this morning and is having increasing shortness of breath and on 15L high flow via NC and 15 L non-rebreather. Patient has been back in bed and attempting position changes frequently along with prone position. Patient continues on lovenox, baracitinib, vitamin and zinc supplement s,and steroids. Pulmonary following closely. 06/10/2021 Patient is seen in follow up this morning and is now maintained on airvo at 60% and continues to be extremely dyspneic with minimal exertion. Patient also continues with 15L Non rebreather as needed. Patient is maintained on lovenox along with baricitinib and IV steroids with pulmonary following. Patient states he has no reserve and taking longer periods of time to recover with attempting to position change or use the urinal. 06/11/2021 Patient is seen in follow-up and evaluated this morning and is continued on Airvo and maintaining oxygen saturations in the low 90s. Pulmonary following closely. Patient is afebrile. Patient is continued on vitamin and zinc supplements along with Baricitinib and subcutaneous Lovenox along with IV steroids and will continue. Patient's d-dimer today is elevated at 18.25 and will increase Lovenox to 50 subcu twice daily. White blood count today is 18.6 and hemoglobin is stable at 13.7, sodium is 139 with a potassium of 4.3 current creatinine is 0.7. Inflammatory markers are elevated with some trending down and CRP is 1.5, LDH is 1968 and alk phos is 168. Patient is afebrile. Patient continues to be extremely anxious and will continue Xanax as needed. Encouraged increase activity as tolerated and continued position changes with incentive spirometer use. 06/12/2021 Patient is seen in follow-up this morning with no acute issues noted overnight. Patient continues on Airvo with a flow rate of 55 and FiO2 of 80% maintaining oxygen saturations above 90%. Pulmonary following closely and we'll continue to wean as tolerated. Patient continues on Lovenox twice daily along with vitamin and zinc supplements and continued on IV steroids along with albuterol and Baricitinib. White blood count is 23.7 with a hemoglobin of 14.1, sodium is 139 with a potassium of 4.4 and current creatinine is 0.62. Will repeat chest x-ray along with inflammatory markers in the morning. 06/13/2021 Patient is seen and evaluated in follow-up as morning and continues to be on Airvo. Patient appears to be more raspy with some sputum and congested today with a hoarse voice. Infectious disease and pulmonary following closely. Sputum culture from 06/02 just today preliminary showing gram-negative bacilli along with Essence albicans and patient is being started on IV cefepime with repeat sputum culture ordered along with oral Diflucan. White blood count is 23.5 with hemoglobin of 13.8, sodium is 137 and potassium is 5.5 and current creatinine is 0.55. LFTs are mildly elevated. Repeat d-dimer along with CRP and LDH have been ordered. Will repeat a.m. labs. Chest x-ray today shows con tinued peripheral and lower lung interstitial infiltrates of Covid pneumonia without significant change. 06/14/2021 Patient is seen and evaluated in follow-up this morning continues to be dyspneic and requesting to go to the bed as he has been sitting up in the chair all day. Patient has been started on Diflucan along with IV cefepime and sputum culture from 06/02/2021 resulted showing Pseudomonas aeruginosa along with Essence albicans. Infectious disease is following closely. Patient is completing Baricitinib and will be transitioned to oral prednisone taper with pulmonary following closely. Patient has been started on eliquis. D-dimer today has trended down to 11.02, LDH is 2178, CRP is 3.2, liver functions trending down. White blood count slightly trending down at 20.2 and hemoglobin is stable at 13.7, sodium is 136 with a potassium of 4.3 and current creatinine is 0.57. Continues to have a mildly raspy voice with some throat dryness and will add Cepacol. 06/15/2021 Patient evaluated in bed and is resting on the BiPAP in the intensive care unit, he had desaturated this morning will be moved to the bathroom and initially was on a 15L HF, however is now requiring BiPAP. Patient was started on a Precedex drip. Repeat chest x-ray today which revealed persistent multifocal and confluent bilateral reticulonodular opacities is consistent with known coronary infection more prominent in the lower lungs. Patient finished a course of therapy with Baricitinib and transitioned to oral prednisone. Labs reviewed today include a white blood cell count 21.2, hemoglobin of 12.5. Blood gases show a pO2 of 32 and O2 saturation of 50.3. Chloride is 110, CO2 20, sodium 137, potassium 4. LDH is worse today at 2277, alk phos 158, CRP is trending upwards of 4.6. Patient has remained afebrile, heart rate is now 83, respirations 32, blood pressure 124/68. Oxygen saturation is maintaining in the mid to high 80s on 100% BiPAP. Patient is nothing by mouth and oral medications are unable to be given. Patient is on IV cefepime for a sputum culture positive for Pseudomonas. He is IV Diflucan for oral candidiasis that was improving as of yesterday. 06/16/2021 Patient is evaluated in the intensive care unit, he is status post intubation and has NG tube in place. Labs reviewed today included white blood cell, 44.2, d-dimer greater than 34. ABGs from the A-line included a pH of 7.15, pCO2 of 71, total CO2 is 27 and oxygen saturation of 98. Bicarb is 25 and his pO2 is 107. Additional labs include a serum potassium 5.1, chloride of 109, BUN of 27, creatinine 1.06. Vital signs include a heart rate of 123 tachycardia, respiratory rate of 36, blood pressure 100/50, he is 98% oxygen saturation. Patient is on vasopressors for his blood pressure. Repeat blood cultures are negative. Patient is receiving propofol for sedation. His chest x-ray was reviewed which is showing bilateral pulmonary infiltrates demonstrating COVID- 19 pneumonia with ARDS. Patient is still getting IV cefepime for a sputum culture Pseudomonas although his pro calcitonin level is 0.03 which is not usually indicative of a bacterial infection. Additional inflammatory markers remain elevated. Patient did receive 2 L saline bolus. Repeat labs in the morning, prognosis is guarded for this patient. 06/17/2021 Patient is seen in follow-up continues to be monitored closely in the ICU with multiple medical consultations following. Prognosis is extremely guarded. Patient's respiratory status significantly worsened requiring mechanical ventilation and intubation and currently patient is sedated. White blood count is worsened at 26.1 and hemoglobin is 12.2, d-dimer is 27.06, ABG is 7.16 pH with a pCO2 of 57 and a pO2 of 68 and bicarb is 20, sodium is 140 with a potassium of 5.0 and current creatinine has worsened at 2.29 pro calcitonin is 24.40. Infectious disease along with pulmonary journeyman electrician pv installer following closely. Patient continues on cefepime along with eliquis, vitamin and zinc supplements and patient has finished Baricitinib. Patient was on oral Decadron and is being transitioned back to IV dexamethasone along with Diflucan. Patient was given a dose of IV Lasix and nephrology has been consulted. Cardiology consulted as well and patient is currently on amiodarone drip along with Cleviprex and currently sedated on propofol. Patient also has norepinephrine drip as well. Patient being started on sodium bicarb drip. Patient also has low-grade fevers. 06/18/2021 Patient is seen in follow up in the ICU and maintained on mechanical vent intubated and sedated. Patient continues on NImbex, sodium bicarb, amiodarone, and being started on fentanyl as IV lasix drip with multiple medical consultations following. Kidney functions continue to deteriorate with nephrology following closely. Discussion being had about possible hemodialysis if kidney functions continue to worsen. Creatinine currently 3.69 today. 06/19/2021 Patient remains on mechanical vent with minimal urine output note and extensive volume overload with worsening kidney functions and would like to proceed with hemodialysis catheter placement with nephrology following closely. Multiple consultations following and Dr. Mann consulted for hemodialysis catheter placement and will hold eliquis. Amiodarone being transitioned to oral with cardiology following closely. Continue close monitoring in the ICU. Overall Prognosis remains extremely poor and guarded. 06/20/2021 Patient is seen and evaluated in follow-up continue to be closely monitored with multiple medical consultations following in the ICU. Patient remains intubated on mechanical ventilation and sedated. Kidney functions continue to worsen and patient is an extensive volume overload and has received dialysis catheter today and will initiate hemodialysis. Patient was maintained on IV Lasix drip which is being transitioned to IV push Lasix twice daily with nephrology following closely. Patient also continues on IV cefepime along with dexamethasone, vitamin and zinc supplements and continues on eliquis as well. White blood count 11.9 and hemoglobin is 9.6, platelets are 61 and d-dimer is 8.40. Sodium is 135 with a potassium of 5.0 and current BUN is 99 with a creatinine of 5.23. LDH is 1015 and pro calcitonin is 13.10. Prognosis remains extremely guarded. 06/21/2021 Patient is evaluated in follow up this morning and continues to be monitored closely in the ICU. On mechanical vent with an FI02 of 50%. Currently receiving hemodialysis and will likely require daily treatments if tolerated for extensive overload. Patient continues on IV lasix twice daily along with Nimbex, propofol, and fentanyl. Chest xray done today. Patient continues on IV cefepime with most recent repeat sputum culture revealing no growth. Infectious disease following closely. 06/22/2021 Patient remains intubated in the ICU, on ventilatory before meals settings, tidal volume 450, 50% FiO2, PEEP of 16, saturating 80%. ABG showing pO2 66, pCO2 42, pH 7.32, he was dialyzed for 2-1/2 L removed., He is making urine He remains sedated with propofol and he is paralyzed with Nimbex. His sputum is growing pseudomonas receiving antimicrobial therapy of cefepime, ID is following. No fever this morning, blood pressure 09/26/1939/50. Chest x-ray showing extensive bilateral airspace disease, correlate for pneumonia or ARDS. In atrial fibrillation with controlled ventricular rate 06/23/2021 Patient remains intubated on ventilatory support in the ICU, currently on assist control, 55% FiO2, PEEP of 14, TG 450. ABG this morning showing pH 7.31, pCO2 43, pO2 54, bicarb 22. O2 saturations marginal 90-91%, blood pressure stable. He remains in atrial fibrillation, with controlled ventricular rate, antic oagulated with Eliquis. Labs today show sodium 135, creatinine 4.18, WBC 12.7, hemoglobin 8.3 platelets 40. He is on IV Lasix, low urine output 270 ml yesterday Continue systemic steroids of Decadron 6 daily, eyes receiving antimicrobial therapy with cefepime, and fluconazole. sedated with fentanyl. 06/24/2021 Patient is seen and evaluated continues to be closely monitored in the ICU. Patient is currently receiving hemodialysis with an attempt of 2 L removal as the goal is 3 although patient's blood pressure is not tolerating. Nephrology and pulmonary journeyman electrician pv installer following closely. General surgery has been consulted for possible PEG and trach tube placement. Patient continues on Cleviprex along with fentanyl and propofol, IV dexamethasone, vitamin and zinc supplements, scheduled Reglan and IV cefepime. No reported bowel movements and patient not tolerating tube feeds with a large amount of residual noted in the NG. Chest x- ray today shows interval development of pneumomediastinum is suspected with arts and progression of subcutaneous emphysema. 06/25/2021 Patient is seen this morning in follow-up continues to be closely monitored in the ICU with multiple medical consultations following. Patient did not receive hemodialysis today and plan is scheduled for tomorrow with nephrology following closely. Eliquis remains on hold as general surgery plans for tracheostomy and PEG tube placement tomorrow. Patient continues to have no bowel movement and have ordered fleets enema and will continue with bowel regimen. Chest x-ray today shows continued extensive overlying subcutaneous emphysema with pneumomediastinum and bilateral compliant reticulonodular opacities related to COVID-19 infection again noted with no significant change from previous. Patient is maintained on IV cefepime along with Cleviprex, IV dexamethasone, fentanyl and propofol, scheduled Reglan and is also being started on sodium bicarb. 06/26/2021 Patient is seen and evaluated this morning continues to be on mechanical vent and intubated and sedated being closely monitored in the ICU. Multiple medical consultations following including general surgery and plan is for tracheostomy and PEG tube placement today. Eliquis has been on hold along with tube feeds and will discuss with surgery about initiating tube feeds and resuming anticoagulant. Per nursing staff patient had small amount of blood noted at the NG tube along with patient having a bowel movement with blood noted and hemoglo bin today is 7.9, platelets are 66. Patient also continues on IV cefepime along with IV dexamethasone, vitamin and zinc supplements and will continue. Patient maintained on Cleviprex along with fentanyl and propofol. Patient is scheduled to receive dialysis today with nephrology following closely. Chest x-ray today personally reviewed by me shows possible interval development of right-sided pn eumothorax although pneumothorax evaluation is limited due to extensive subcutaneous emphysema present bilaterally along with worsening right lower lobe consolidation, diffuse bilateral infiltrates. Pulmonary journeyman electrician pv installer is following closely. 06/27/2021 Patient is seen and evaluated in follow-up today status post receiving tracheostomy and continues to be sedated on the vent and currently receiving hemodialysis today. Patient continues to be closely monitored in the ICU with multiple medical consultations following. Patient continues to have extensive swelling and edema with noted subcutaneous emphysema that continues to worsen. PEG tube was also attempted by surgery and unsuccessful given the abdominal wall thickening and extensive edema noted. NG tube to be replaced and will continue tube feedings via NG. Patient did receive hemodialysis yesterday and able to tolerate approximately 2-2-1/2 L although blood pressure continued to drop and will continue with 2 L per nephrology. Patient continues on IV cefepime along with Nimbex, IV dexamethasone, fentanyl and propofol. Patient also continues on vitamin and zinc supplements and Eliquis has been resumed. 06/28/2021 Patient is evaluated this morning and continues to be in the ICU being closely monitored. Multiple medical consultations following including nephrology. Patient has been receiving daily hemodialysis as he continues to have extensive volume overload and edema noted throughout including the scrotum. Facial s ubcutaneous emphysema has worsened and continues to show on chest xray. Patient is also having some nasal bleeding and eliquis has been placed on hold. Blood pressure is elevated and will start Cleviprex. Patient continues on IV cefepime as well. 07/01/2021 Patient continues to be in the ICU on mechanical vent via trach and sedated. Multiple medical consultations following and patient is receiving daily hemodialysis with nephrology following closely. chest xray today shows no significant changes from previous exam. Patient is status post bronchoscopy and cultures pending. Patient is continued on cefepime and antifungals with ID following closely. Prognosis remains quite guarded. 07/02/2021 Patient is seen and evaluated continues to be closely monitored in the ICU with multiple medical consultations following. Patient is receiving daily dialysis for extensive volume overload with nephrology following closely. Pulmonary journeyman electrician pv installer following closely as well along with surgery and patient continues to be intubated and sedated on vent via tracheostomy. Patient anticoagulant was on hold as patient was having extensive bleeding from the nasal passage with no further bleeding noted at this time and will attempt to resume Eliquis with close monitoring. Patient also continues on IV cefepime along with antifungal voriconazole with infectious disease following closely. Patient recently underwent bronchoscopy with BAL with pulmonary and awaiting for cultures are finalized. 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 Chest x-ray today shows very limited exam due to severe bilateral subcutaneous emphysema. Persistent mild pneumomediastinum is suspected with continued diffuse bilateral interstitial and airspace disease that may have slight improvement on the left, NG tube possibly needing advancement further into the stomach. Labs: Sodium is 135, potassium is 4.7, BUN 46, creatinine is 2.95 to, WBC 20.1, hemoglobin is 7.2, platelets 624, ldh 716, crp 6.2, d dimer 6.36 Review of systems: Unable to complete a full review of symptoms as patient is sedated and on a ventilator via recent tracheostomy placement. Active Medications Acetaminophen (Acetaminophen Tab 325 Mg Tab) 650 mg PO Q6HR PRN PRN Reason: Fever and/ or Mild Pain Last Admin: 06/14/21 22:22 Dose: 650 mg Documented by: Albuterol Sulfate (Albuterol Hfa Inhaler) 2 puff INHALATION RT-QID [facility] Last Admin: 07/02/21 11:19 Dose: 2 puff Documented by: Albuterol Sulfate (Albuterol Hfa Inhaler) 2 puff INHALATION RT-QID PRN PRN Reason: Shortness Of Breath Or Wheezing Last Admin: 06/15/21 03:30 Dose: 2 puff Documented by: Amiodarone HCl (Amiodarone 200 Mg Tab) 200 mg PO BID [facility] Last Admin: 07/01/21 20:42 Dose: 200 mg Documented by: Apixaban (Apixaban 2.5 Mg Tablet) 2.5 mg PO BID [facility]; Protocol Artificial Tears (Artificial Tears-Hypromellose Drops 15 Ml Btl) 2 drops BOTH EYES Q4HR [facility] Last Admin: 07/02/21 11:37 Dose: Not Given Documented by: Ascorbic Acid (Ascorbic Acid 500 Mg Tab) 500 mg PO DAILY [facility] Last Admin: 07/01/21 09:28 Dose: 500 mg Documented by: Bisacodyl (Bisacodyl 10 Mg Supp) 10 mg RECTAL DAILY [facility] Last Admin: 07/01/21 09:30 Dose: 10 mg Documented by: Calcium Acetate (Calcium Acetate 667 Mg Tab) 667 mg PO TID-W/MEALS [facility] Last Admin: 07/02/21 06:39 Dose: 667 mg Documented by: Chlorhexidine Gluconate (Chlorhexidine Gluconate 15 Ml Cup) 15 ml MUCOUS MEM BID [facility] Last Admin: 07/01/21 20:42 Dose: 15 ml Documented by: Cholecalciferol (Cholecalciferol 25 Mcg (1000 Iu) Tablet) 25 mcg PO DAILY [facility] Last Admin: 07/01/21 09:29 Dose: 25 mcg Documented by: Cyanocobalamin (Cyanocobalamin 500 Mcg Tab) 1,000 mcg PO DAILY [facility] Last Admin: 07/01/21 09:29 Dose: 1,000 mcg Documented by: Darbepoetin Shalom (Darbepoetin Shalom 40 Mcg/0.4 Ml Syringe) 40 mcg SQ Q7D [facility] Last Admin: 06/27/21 12:57 Dose: 40 mcg Documented by: Dexamethasone Sodium Phosphate (Dexamethasone Sod Phosphate 4 Mg/Ml 1 Ml Vial) 4 mg IV DAILY [facility] Last Admin: 07/01/21 09:29 Dose: 4 mg Documented by: Propofol 1,000 mg/ IV Solution 100 mls @ 0 mls/hr IV .Q0M [facility]; Protocol Last Admin: 07/02/21 06:27 Dose: 50 mcg/kg/min, 35.04 mls/hr Documented by: Norepinephrine Bitartrate 8 mg (/ Sodium Chloride) 258 mls @ 9.482 mls/hr IV .Q24H [facility]; Protocol Last Titration: 07/02/21 11:36 Dose: 0.14 mcg/kg/min, 26.548 mls/hr Documented by: Cisatracurium Besylate 200 mg/ (Sodium Chloride) 200 mls @ 5.88 mls/hr IV .Q24H [facility]; Protocol Last Admin: 07/02/21 03:14 Dose: 3 mcg/kg/min, 17.64 mls/hr Documented by: Fentanyl Citrate 1,000 mcg/ (Sodium Chloride) 100 mls @ 2.765 mls/hr IV .Q24H [facility]; Protocol Last Admin: 07/02/21 00:02 Dose: 0.6 mcg/kg/hr, 6.636 mls/hr Documented by: Cefepime HCl 1 gm/ Sodium (Chloride) 50 mls @ 12.5 mls/hr IVPB HS [facility] Last Admin: 07/01/21 20:42 Dose: 12.5 mls/hr Documented by: Clevidipine 25 mg/ IV Solution 50 mls @ 2 mls/hr IV .Q24H [facility]; Protocol Last Admin: 07/01/21 13:53 Dose: Not Given Documented by: Voriconazole 300 mg/ Sodium (Chloride) 100 mls @ 125 mls/hr IVPB Q12HR [facility] Last Admin: 07/01/21 20:42 Dose: 125 mls/hr Documented by: Metoclopramide HCl (Metoclopramide 5 Mg/Ml 2 Ml Vial) 5 mg IVP Q8H [facility] Last Admin: 07/02/21 03:59 Dose: 5 mg Documented by: Metoprolol Tartrate (Metoprolol Tartrate 25 Mg Tab) 25 mg PO DAILY [facility] Last Admin: 07/01/21 19:51 Dose: Not Given Documented by: Pantoprazole Sodium (Pantoprazole 40 Mg/10 Ml Vial) 40 mg IVP BID [facility] Last Admin: 07/01/21 20:42 Dose: 40 mg Documented by: Senna/Docusate Sodium (Sennosides-Docusate Sodium 1 Each Tab) 1 each PO DAILY [facility] Last Admin: 07/01/21 09:28 Dose: 1 each Documented by: Zinc Sulfate (Zinc Sulfate 220 Mg Cap) 220 mg PO DAILY [facility] Last Admin: 07/01/21 09:29 Dose: 220 mg Documented by: Physical exam: Gen: This is a 75-year-old male sedated and intubated on propofol and mechanical ventilation. Extensive edema and swelling noted throughout and more so in the face today. Is 98F, pulse is 98, respirations are 36, blood pressure is 96/59, arterial is 104/47, oxygen saturation is 92% on mechanical vent with an FiO2 of 75% HEENT: Head is atraumatic, normocephalic. Pupils equal, round. Sclerae is anicteric. NG tube noted NECK: Supple. No JVD. No lymphadenopathy. No thyromegaly. Extensive subcutaneous emphysema of the face and neck traveling down the arms and continues in the chest that is worsening daily LUNGS: Diminished breath sounds bilaterally with scattered coarse rhonchi and crackles noted at the bases. Extensive subcutaneous emphysema persists HEART: Irregular S1, S2 are muffled ABDOMEN: Soft. Edematous. obese. Hypoactive Bowel sounds are present. No masses. No guarding or rigidity noted. EXTREMITIES: Extensive pitting edema noted of upper and lower bilateral extremities and much of the body. 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 Extensive Subcutaneous emphysema with pneumomediastinum as noted on x-ray acute renal failure likely ATN with worsening kidney functions and minimal urine output requiring hemodialysis volume overload secondary to ARF metabolic acidosis afib with RVR currently rate controlled on oral amiodarone and metoprolol Lactic acidosis secondary to above Initial sputum culture showing Essence albicans and pseudomonas aeruginosa and maintained on IV cefepime repeat sputum culture showing aspergillus not fumigatus Oral candidiasis, sputum cultures from 06/02/2021 Essence albicans Extensive interstitial bilateral COVID-19 pneumonia Elevated white blood count possibly secondary to above Possible subsegmental pulmonary embolism ruled out History of atrial fibrillation Anxiety Remote history of nicotine dependence GI prophylaxis: Protonix DVT prophylaxis: On eliquis which is being restarted today with close monitoring for any bleeding Full code Plan: Recommend to continue with current medications and continue to closely monitor in the ICU. Patient remains on mechanical ventilation and intubated. Patient received tracheostomy placement with surgery. Given extreme abdominal wall thickening and edema unsuccessful for PEG tube placement and have resumed NG tube and will continue tube feeds via NG tube. Patient continues on antifungals and IV cefepime with ID following closely as well. repeat sputum culture showing aspergillus not fumigatus with pseudomonas. Patient continues on vitamin and zinc supplements IV dexamethasone and will continue. Patient has completed Baricitinib. Patient with extensive volume overload and has been receiving daily hemodialysis with nephrology following closely. status post bronchial washing awaiting cultures. No further bleeding noted from the NG and will attempt to resume eliquis and monitor closely for any bleeding. Will repeat a.m. labs. Prognosis is extremely poor and guarded and will continue to monitor closely. Family wishes to proceed with full code measures. Objective - Vital Signs Vital signs: Vital Signs Temp 98.0 F 07/02/21 04:00 Pulse 105 H 07/02/21 07:00 Resp 36 H 07/02/21 07:00 BP 96/59 07/02/21 04:00 Pulse Ox 93 L 07/02/21 07:00 Intake & Output 07/01/21 07/02/21 07/02/21 18:59 06:59 18:59 Intake Total 7530.257 3946.713 83 Output Total 2009 5 0 Balance -918.683 3769.713 83 Weight 122.3 kg 120.8 kg Intake: IV 276 430 43 0.9 240 200 40 Cefepime 1 gm In Sodium 100 Chloride 0.9% 50 ml @ 12. 5 mls/hr IVPB HS [facility] Rx#: [id number] Pressure bag 36 30 3 Voriconazole 300 mg In 100 Sodium Chloride 0.9% 100 ml @ 125 mls/hr IVPB Q12HR [facility] Rx#:[id number] Intake, IV Titration 590.028 558.713 Amount Cisatracurium 200 mg In 200 171.99 Sodium Chloride 0.9% 180 ml @ 1 MCG/KG/MIN 5.88 mls/hr IV .Q24H [facility] Rx#: [id number] Norepinephrine 8 mg In 0 96.142 Sodium Chloride 0.9% 250 ml @ 0.05 MCG/KG/MIN 9. 482 mls/hr IV .Q24H [facility] Rx#:[id number] fentaNYL (PF). 1,000 mcg 90.028 90.581 In Sodium Chloride 0.9% 80 ml @ 0.25 MCG/KG/HR 2. 765 mls/hr IV .Q24H [facility] Rx#:[id number] propofoL 1,000 mg In 300 200 Empty Bag 1 bag @ Titrate IV .Q0M [facility] Rx#: [id number] Tube Feeding 360 140 40 Other 60 90 Output: Urine 10 5 0 Hemodialysis 2000 Other: Voiding Method Indwelling Catheter Indwelling Catheter ABP, PAP, CO, CI - Last Documented Arterial Blood Pressure 121/48 - Labs CBC & Chem 7: 07/02/21 04:00 07/02/21 04:00 Labs: Abnormal Lab Results - Last 24 Hours (Table) 07/01/21 07/01/21 07/01/21 Range/Units 05:20 09:14 09:14 WBC 13.4 H (3.8-10.6) k/uL RBC 2.34 L (4.30-5.90) m/uL Hgb 7.2 L (13.0-17.5) gm/dL Hct 21.7 L (39.0-53.0) % RDW 16.3 H (11.5-15.5) % Plt Count 485 H (150-450) k/uL Neutrophils # (Manual) 9.70 H (1.3-7.7) k/uL Lymphocytes # (Manual) 0.80 L (1.0-4.8) k/uL Monocytes # (Manual) 1.61 H (0-1.0) k/uL Metamyelocytes # (Man) 0.27 H (0) k/uL Myelocytes # (Manual) 0.94 H (0) k/uL D-Dimer 6.20 H (<0.60) mg/L FEU ABG pH (7.35-7.45) ABG pCO2 (35-45) mmHg Sodium (137-145) mmol/L Carbon Dioxide (22-30) mmol/L BUN (9-20) mg/dL Creatinine (0.66-1.25) mg/dL Glucose (74-99) mg/dL POC Glucose (mg/dL) (75-99) mg/dL Lactate Dehydrogenase (313-618) U/L C-Reactive Protein (<1.0) mg/dL Total Protein (6.3-8.2) g/dL Albumin (3.5-5.0) g/dL Triglycerides (0.00-149.00) mg/dL Procalcitonin 1.92 H (0.02-0.09) ng/mL 07/01/21 07/01/21 07/01/21 Range/Units 09:14 11:23 23:58 WBC (3.8-10.6) k/uL RBC (4.30-5.90) m/uL Hgb (13.0-17.5) gm/dL Hct (39.0-53.0) % RDW (11.5-15.5) % Plt Count (150-450) k/uL Neutrophils # (Manual) (1.3-7.7) k/uL Lymphocytes # (Manual) (1.0-4.8) k/uL Monocytes # (Manual) (0-1.0) k/uL Metamyelocytes # (Man) (0) k/uL Myelocytes # (Manual) (0) k/uL D-Dimer (<0.60) mg/L FEU ABG pH (7.35-7.45) ABG pCO2 (35-45) mmHg Sodium 133 L (137-145) mmol/L Carbon Dioxide 21 L (22-30) mmol/L BUN 59 H (9-20) mg/dL Creatinine 3.90 H (0.66-1.25) mg/dL Glucose (74-99) mg/dL POC Glucose (mg/dL) 101 H 115 H (75-99) mg/dL Lactate Dehydrogenase 679 H (313-618) U/L C-Reactive Protein 8.6 H (<1.0) mg/dL Total Protein 4.9 L (6.3-8.2) g/dL Albumin 2.1 L (3.5-5.0) g/dL Triglycerides 365.00 H (0.00-149.00) mg/dL Procalcitonin (0.02-0.09) ng/mL 07/02/21 07/02/21 07/02/21 Range/Units 04:00 04:00 04:00 WBC 20.1 H (3.8-10.6) k/uL RBC 2.44 L (4.30-5.90) m/uL Hgb 7.2 L (13.0-17.5) gm/dL Hct 22.4 L (39.0-53.0) % RDW 16.6 H (11.5-15.5) % Plt Count 624 H (150-450) k/uL Neutrophils # (Manual) 17.80 H (1.3-7.7) k/uL Lymphocytes # (Manual) (1.0-4.8) k/uL Monocytes # (Manual) (0-1.0) k/uL Metamyelocytes # (Man) 0.80 H (0) k/uL Myelocytes # (Manual) 0.20 H (0) k/uL D-Dimer 6.36 H (<0.60) mg/L FEU ABG pH (7.35-7.45) ABG pCO2 (35-45) mmHg Sodium 135 L (137-145) mmol/L Carbon Dioxide 19 L (22-30) mmol/L BUN 46 H (9-20) mg/dL Creatinine 2.95 H (0.66-1.25) mg/dL Glucose 100 H (74-99) mg/dL POC Glucose (mg/dL) (75-99) mg/dL Lactate Dehydrogenase 716 H (313-618) U/L C-Reactive Protein 6.2 H (<1.0) mg/dL Total Protein 4.9 L (6.3-8.2) g/dL Albumin 2.2 L (3.5-5.0) g/dL Triglycerides (0.00-149.00) mg/dL Procalcitonin (0.02-0.09) ng/mL 07/02/21 07/02/21 Range/Units 05:24 06:07 WBC (3.8-10.6) k/uL RBC (4.30-5.90) m/uL Hgb (13.0-17.5) gm/dL Hct (39.0-53.0) % RDW (11.5-15.5) % Plt Count (150-450) k/uL Neutrophils # (Manual) (1.3-7.7) k/uL Lymphocytes # (Manual) (1.0-4.8) k/uL Monocytes # (Manual) (0-1.0) k/uL Metamyelocytes # (Man) (0) k/uL Myelocytes # (Manual) (0) k/uL D-Dimer (<0.60) mg/L FEU ABG pH 7.11 L* (7.35-7.45) ABG pCO2 68 H (35-45) mmHg Sodium (137-145) mmol/L Carbon Dioxide (22-30) mmol/L BUN (9-20) mg/dL Creatinine (0.66-1.25) mg/dL Glucose (74-99) mg/dL POC Glucose (mg/dL) 110 H (75-99) mg/dL Lactate Dehydrogenase (313-618) U/L C-Reactive Protein (<1.0) mg/dL Total Protein (6.3-8.2) g/dL Albumin (3.5-5.0) g/dL Triglycerides (0.00-149.00) mg/dL Procalcitonin (0.02-0.09) ng/mL Microbiology - Last 24 Hours (Table) 06/30/21 10:00 Acid Fast Bacilli Smear - Final Bronchoalviolar Lavage - Left Acid Fast Bacilli Culture - Preliminary 06/30/21 10:00 Gram Stain - Preliminary Bronchoalviolar Lavage - Left Bronchial Washings Culture - Preliminary Aspergillus species
[2021-07-02] MEDS: PANTOPRAZOLE 40 MG/10 ML VIAL IVP SCH ×2 (13:37→20:49)
[2021-07-02] MEDS: bisacodyL 10 MG SUPP RECTAL SCH (13:38)
[2021-07-02] MEDS: DEXAMETHASONE SOD PHOSPHATE 4 MG/ML 1 ML VIAL IV SCH (13:38)
[2021-07-02] MEDS: ZINC SULFATE 220 MG CAP PO SCH (13:38)
[2021-07-02] MEDS: SENNOSIDES-DOCUSATE SODIUM 1 EACH TAB PO SCH (13:38)
[2021-07-02] MEDS: CYANOCOBALAMIN 500 MCG TAB PO SCH (13:38)
[2021-07-02] MEDS: CHLORHEXIDINE GLUCONATE 15 ML CUP MUCOUS MEM SCH ×2 (13:38→20:50)
[2021-07-02] MEDS: ASCORBIC ACID 500 MG TAB PO SCH (13:39)
[2021-07-02] MEDS: AMIODARONE 200 MG TAB PO SCH ×2 (13:39→20:53)
[2021-07-02] MEDS: CHOLECALCIFEROL 25 MCG (1000 IU) TABLET PO SCH (13:39)
[2021-07-02] MEDS: METOPROLOL TARTRATE 25 MG TAB PO SCH (13:39)
[2021-07-02] MEDS: CLEVIDIPINE BUTYRATE 25 MG in EMPTY BAG 1 BAG IV SCH (13:40)
[2021-07-02] MEDS: NOREPINEPHRINE 8 MG in SODIUM CHLORIDE 0.9% 250 ML IV SCH (14:42)
--- NOTE | 2021-07-02 15:18 | PN ---
PROGRESS NOTE Patient is seen for followup for acute kidney injury, currently oliguric renal failure with volume overload and hemodialysis dependent. Patient is being dialyzed on a daily basis. His FiO2 remains at 75%. The patient has significant subcutaneous emphysema. Code status has been discussed with family and there may be plans for possible hospice care. PHYSICAL EXAMINATION: On examination today, blood pressure this morning was 118/46, heart rate 103 per minute. Patient is afebrile. Examination shows significant subcutaneous emphysema in the face and upper chest area. The patient has significant edema 2 to 3+ bilaterally with scrotal edema. Abdomen is soft, obese, nontender. [employer] exam cannot be performed. LAB: Show hemoglobin 7.2 on July 02, sodium 135, potassium 4.7, BUN 46, creatinine 2.95. CO2 is 19. ASSESSMENT: 1. Acute kidney injury, ATN, hemodialysis dependent with severe volume overload maintained on daily treatments for now. UF about 2-3 L as tolerated again today. 2. Acute hypoxic respiratory failure secondary to COVID pneumonia. 3. Severe volume overload. 4. Superimposed fungal and bacterial pneumonia. Sputum culture with bronchial washings growing Aspergillus, maintained on antifungals and antibiotics. PLAN: Repeat dialysis today, mostly ultrafiltration. Overall prognosis is poor. MMODL / IJN: [id number] /
--- NOTE | 2021-07-02 16:10 | XR ---
EXAMINATION TYPE: XR abdomen 1V DATE OF EXAM: 07/02/2021 Comparison: None Clinical History: 75-year-old male Constipation, unable to tolerate tube feedings FINDINGS: Severe subcutaneous emphysema is present throughout. Exam is largely nondiagnostic due to the extensi ve subcutaneous edema. There seems to be a right femoral catheter in the iliac system. An NG tube is noted. Vague densities may represent cholecystectomy clips. Impression: Severe subcutaneous emphysema across the entire abdomen. The exam is largely nondiagnostic due to the extensive overlying air densities.
[2021-07-02 17:34] LABS: Glucose,Whole Blood 125 mg/dL (75-99)
[2021-07-02] MEDS: CEFEPIME 1 GM in SODIUM CHLORIDE 0.9% 50 ML IVPB SCH (20:50)
[2021-07-02] MEDS: APIXABAN 2.5 MG TABLET PO SCH (20:50)
--- NOTE | 2021-07-02 22:23 | PN ---
PROGRESS NOTE DATE OF SERVICE: 07/02/2021. REASON FOR FOLLOW UP: Pneumonia. INTERVAL HISTORY: Patient is afebrile. The patient is hemodynamically stable. The patient remains to be intubated on the vent. FiO2 is currently 75%. No significant purulent secretions in the ET, diarrhea or any other changes reported by nursing staff. PHYSICAL EXAMINATION: Blood pressure 103/43 with a pulse of 94, temperature is 97.8. He is 91% on % FiO2. General description is an elderly male intubated on the vent. Respiratory system: Unlabored breathing, decreased intensity of breath sounds. No wheeze. Heart S1, S2. Regular rate and rhythm. Abdomen soft, no tenderness. LABS: Hemoglobin 7.2, white count of 20.1, BUN of 46, creatinine is 2.95. DIAGNOSTIC IMPRESSION AND PLAN: Patient with acute respiratory failure, multifactorial in this patient who did on initial presentation with Covid 19 pneumonia followed by Pseudomonas pneumonia, now with evidence of aspergillosis. Patient is covered with voriconazole to continue while monitoring clinical course closely. Prognosis remains to be guarded. Continue supportive care. MMODL / IJN: [id number] /
[2021-07-02 23:59] LABS: Glucose,Whole Blood 135 mg/dL (75-99)
[2021-07-03] MEDS: ARTIFICIAL TEARS-HYPROMELLOSE DROPS 15 ML BTL BOTH EYES SCH ×6 (01:27→20:09)
[2021-07-03] MEDS: VORICONAZOLE IVPB SCH ×2 (01:40→13:47)
[2021-07-03] MEDS: SODIUM CHLORIDE 0.9% IVPB SCH ×2 (01:40→13:47)
[2021-07-03] MEDS: NOREPINEPHRINE 8 MG in SODIUM CHLORIDE 0.9% 250 ML IV SCH ×3 (03:04→21:52)
[2021-07-03 04:16] LABS: Anisocytosis Slight; HCT 20.3 % (39.0-53.0); Hypochromasia Slight; MCH 30.8 pg (25.0-35.0); MCHC 33.3 g/dL (31.0-37.0); MCV 92.4 fL (80.0-100.0); Mean Platelet Volume 8.7; Platelet Count 670 k/uL (150-450); Poikilocytosis Slight; WBC 23.5 k/uL (3.8-10.6)
[2021-07-03 04:22] LABS: HGB 6.8 gm/dL (13.0-17.5)
[2021-07-03 04:33] LABS: Albumin 2.1 g/dL (3.5-5.0); C Reactive Protein 6.2 mg/dL (<1.0); Calcium 8.2 mg/dL (8.4-10.2); Potassium 4.8 mmol/L (3.5-5.1); Total Bilirubin 0.5 mg/dL (0.2-1.3); Total Protein 4.7 g/dL (6.3-8.2)
[2021-07-03] MEDS: METOCLOPRAMIDE 5 MG/ML 2 ML VIAL IVP SCH ×3 (04:37→20:08)
[2021-07-03] MEDS: fentaNYL (PF). 1,000 MCG in SODIUM CHLORIDE 0.9% 80 ML IV SCH ×2 (04:39→18:11)
[2021-07-03 04:41] LABS: Band Neutrophils % 19 %; Lymphocytes # (M) 0.47 k/uL (1.0-4.8); Metamyelocytes # (M) 2.12 k/uL (0); Metamyelocytes % 9 %; Monocytes # (M) 0.94 k/uL (0-1.0); Myelocytes # (M) 0.47 k/uL (0); Myelocytes % 2 %; Neutrophils % (M) 63 %; Nucleated Red Blood Cells 0 /100 WBC (0-0); Promyelocytes # (M) 0.24 k/uL (0); Promyelocytes % 1 %; Total Cells Counted 200
[2021-07-03 04:42] LABS: Anisocytosis (M) Present; Poikilocytosis (M) Present; Toxic Granulation Present
[2021-07-03 05:15] LABS: ABG Base Excess -11.2 mmol/L; ABG HCO3 19 mmol/L (21-25); ABG Oxygen Saturation 93.6 % (94-97); ABG PCO2 66 mmHg (35-45); ABG PO2 81 mmHg (83-108); ABG TCO2 21 mmol/L (19-24); Allen Test Performed? Yes
[2021-07-03 05:17] LABS: ABG PH 7.07 (7.35-7.45)
[2021-07-03 05:44] LABS: Glucose,Whole Blood 107 mg/dL (75-99)
--- NOTE | 2021-07-03 07:14 | XR ---
EXAMINATION TYPE: XR chest 1V portable DATE OF EXAM: 07/03/2021 COMPARISON: 07/02/2021 HISTORY: SOB, Follow Up FINDINGS: Indwelling tubes and catheters are unchanged. Diffuse airspace infiltrates persist throughout both lung de la torre. Extensive subcutaneous emphysema re demonstrated. Stable appearance of the cardio-mediastinal structures at this time. Pleural effusion unchanged. IMPRESSION: 1. Stable portable chest. Clinical correlation and follow up until resolution is recommended.
[2021-07-03] MEDS: CHLORHEXIDINE GLUCONATE 15 ML CUP MUCOUS MEM SCH ×2 (08:08→20:08)
[2021-07-03] MEDS: DEXAMETHASONE SOD PHOSPHATE 4 MG/ML 1 ML VIAL IV SCH (08:08)
[2021-07-03] MEDS: PANTOPRAZOLE 40 MG/10 ML VIAL IVP SCH ×2 (08:08→20:08)
[2021-07-03] MEDS: CYANOCOBALAMIN 500 MCG TAB PO SCH (08:09)
[2021-07-03] MEDS: CHOLECALCIFEROL 25 MCG (1000 IU) TABLET PO SCH (08:09)
[2021-07-03] MEDS: AMIODARONE 200 MG TAB PO SCH ×2 (08:09→20:08)
[2021-07-03] MEDS: CALCIUM ACETATE 667 MG TAB PO SCH ×3 (08:09→17:36)
[2021-07-03] MEDS: SENNOSIDES-DOCUSATE SODIUM 1 EACH TAB PO SCH (08:09)
[2021-07-03] MEDS: APIXABAN 2.5 MG TABLET PO SCH ×2 (08:09→20:08)
[2021-07-03] MEDS: bisacodyL 10 MG SUPP RECTAL SCH (08:09)
[2021-07-03] MEDS: ASCORBIC ACID 500 MG TAB PO SCH (08:09)
[2021-07-03] MEDS: ZINC SULFATE 220 MG CAP PO SCH (08:09)
[2021-07-03] MEDS: ALBUTEROL HFA INHALER INHALATION SCH ×4 (08:32→21:56)
[2021-07-03] MEDS: CLEVIDIPINE BUTYRATE 25 MG in EMPTY BAG 1 BAG IV SCH (08:46)
[2021-07-03] MEDS: CISATRACURIUM 200 MG in SODIUM CHLORIDE 0.9% 180 ML IV SCH (09:47)
[2021-07-03] MEDS ORDERED: SODIUM BICARB 8.4% 50 ML SYR (1 MEQ/ML) IV STA (10:45)
--- NOTE | 2021-07-03 10:47 | P.PN ---
Subjective Progress Note Date: 07/03/21, the patient remains in the intensive care units. This is a case of a COVID 19 related pneumonia with respiratory failure, intubated on mechanical ventilator. The patient is being seen for a follow-up. Remains sedated, paralyzed, intubated on mechanical ventilator and the patient remains on assist control mode at the rate of 36, tidal volume of 400, FiO2 of 70% with a PEEP of 14. The peak airway pressures are at 40. The static pressure is 33. The blood gases from today shows a pH of 7.15 with a pCO2 of 66 and pO2 of 84. Chest x- ray continues to show extensive bilateral pulmonary interstitial and alveolar infiltrates without any significant change. There is subcutaneous air and mediastinal air as noted. No cardiomegaly. No evidence of any pneumothorax. The patient has a number #8 Bivona trache[address] tube in place. The patient remains on the mechanical ventilator. The patient had initial on 06/02/2021 that showed pseudomonas aeruginosa and Essence. Subsequently, the repeat cultures from 06/22/2021 was positive for Aspergillus, subsequent bronchoscopy was done on 06/30/2021 and the repeat cultures still pending for now. Meanwhile, the patient is covered with a combination of IV cefepime and voriconazole. Remains on Decadron 4 mg IV every 24 hours. The patient's course was also complicated by development of an acute kidney injury related to the COVID-19 related pneumonia. The patient was requiring daily hemodialysis. He had dialysis and 06/29/2021 with a total of 2 L of fluid was removed. The dialysis was done on 06/30/2021. Blood pressure remains on the higher side and the patient is currently on Cleviprex for blood pressure control. He continues to have significant amount of edema in his upper and lower extremities in addition to that the patient has scrotal edema. On examination, there is extensive subcutaneous emphysema in the face, neck, chest and upper extremity. Abdomen is distended soft. The patient remains sedated with propofol running at 50 mics of respiratory per minute and fentanyl at 0.6 mcg/kg per minute. The patient remains paralyzed with Nimbex at 3 mcg/kg per minute. Patient's is currently receiving enteral feeding for nutritional support with vital high protein at the rate of 30 mL an hour. Clinically, the patient continues to have extensive subcutaneous emphysema involving the face, neck, chest and upper extre mities. He has an NG tube in place. I reviewed a bronchoscopy images and the patient has extensive necrosis involving the airways mainly involving the right lung at the level of the right mainstem bronchus and bronchus intermedius. Highly suspicious for Aspergillus infection. Patient remains on voriconazole. 07/02/2021, the patient is being seen for a follow-up. Remains on a mechanical ventilator. He is a case of COVID-19 related pneumonia complicated by ARDS, extensive pneumomediastinum and subcutaneous emphysema without pneumothorax. This morning, he remains sedated and paralyzed. He is on propofol running at 50 mcg/kg per minute and the patient is also paralyzed with Nimbex at 3 mg/kg per minute. He is also on fentanyl at 0.6 mitral respiratory kilogram per hour. On a mechanical ventilator, his peak airway pressure is ranging between 41 and 44. His static airway pressure is 41. His airway pressures are slightly higher compared to yesterday. His blood gases from today shows a pH of 7.11 with a pCO2 of 68 and pO2 of 88. Terms of secretions, history secretions are scant. Nevertheless, the most recent bronchoalveolar lavage that was done showed positive Aspergillus species and we do suspect highly and Aspergillus infection knowing that there was extensive necrosis and blackening of the airway especially on the right along the right mainstem bronchus and there was excess amount of debris's identified and a previous bronchoscopy that was done by my partner. The patient remains on voriconazole. The patient remains also on IV cefepime. He does have extensive subcutaneous emphysema and the amount of emphysema is unchanged compared to yesterday. His face, neck, chest and upper extremities are extensively swollen. On today's evaluation, his tracheostomy tu be is in place and the patient has a #8 Bivona tracheostomy tube in place. He is returning his volumes adequately. No evidence of any leak around the tracheostomy tube. Hemodynamically, he was slightly hypotensive yesterday and the patient was started on norepinephrine infusion and currently is on norepinephrine running at 0.06 mcg/kg per minute. He remains on Decadron and the dose was reduced to 4 mg IV every 24 hours. He is receiving daily hemodialysis. He last had dialysis yesterday with a total of 2 L of fluid was removed. He is receiving enteral feeding for nutritional support. He has an NG tube in place. He is currently on vitamin HP at the rate of 20 mL an hour. Note that the patient is on no anticoagulation. He was having epistaxis earlier and his nostrils are intact bilaterally. He was taken off anticoagulants. 07/03/2021 the patient is being seen for a follow-up. Critically ill male patient with COVID-19 pneumonia, complicated by further infection with gram-nega tive pseudomonas and subsequently Aspergillus species with secondary ARDS and prolonged respiratory failure with has a tracheostomy tube in place. His course was further comfort. By normal mediastinum and extensive subcutaneous emphysema without pneumothorax. The patient has remained sedated and paralyzed throughout this week and the patient remains on propofol which is currently running at 40 g kilogram per minute. He is also paralyzed with Nimbex at 2 mcg/kg/m. Fentanyl is still running at 0.6 mcg/kg/h. He is synchronous with the mechanical ventilator. Clinically, his subcutaneous emphysema is improved. Chest x-ray also showed improvement in the subcutaneous air under the skin, ho wever, he does have still diffuse breath and pulmonary infiltrates consistent with ARDS. While on a mechanical ventilator, his peak airway pressures around 38, static airway pressure is 35. He has a #8 Bivona tracheostomy tube in place. Blood gases showed a pH of 7.07 with a pCO2 of 66 and pO2 of 81. This is a combination of respiratory and metabolic acidosis. His serum bicarbonate has dropped down to 16. Furthermore, the patient is undergoing daily hemodialysis. Urine output is minimal at this point in time. He remains on pressors probably due to underlying sepsis. On epinephrine infusion is running at 0.14 mcg/kg per minute. The patient is currently in a A. fib rhythm, controlled rate, Eliquis and started at a low dose of 2.5 mg twice a day without evidence of any bleeding. His hemoglobin drifted gradually down to 6.8 from this day and the patient will be transfused with a unit of packed RBC. He is receiving vital high protein for enteral feeding and nutritional support at the rate of 20 mL an hour. She will feeds has been placed on hold as the patient was having seasonal joules. He was given laxatives in addition to Reglan and we are going to consider repeating already trying the tube feeds again. Flat film of the abdomen was also done and it was nondiagnostic as the patient had severe subcutaneous emphysema involving the entire abdomen. The balls were not ad equately visualized. On examination, his abdomen is nondistended and soft and the patient has sluggish and diminished bowel sounds. The CODE STATUS remains full. Objective - Vital Signs Vital signs: Vital Signs Temp 97.8 F 07/03/21 08:45 Pulse 90 07/03/21 10:00 Resp 36 H 07/03/21 10:00 BP 96/59 07/02/21 20:00 Pulse Ox 91 L 07/03/21 10:00 Intake & Output 07/02/21 07/03/21 07/03/21 18:59 06:59 18:59 Intake Total 1375.224 894.182 553.248 Output Total 2405 5 0 Balance -1029.776 889.182 553.248 Weight 120.8 kg 119.4 kg 119.4 kg Intake: IV 233 263 92 0.9 130 230 80 Pressure bag 3 33 12 Voriconazole 300 mg In 100 Sodium Chloride 0.9% 100 ml @ 125 mls/hr IVPB Q12HR [facility] Rx#:[id number] Intake, IV Titration 702.224 631.182 401.248 Amount Cisatracurium 200 mg In 200 115.444 Sodium Chloride 0.9% 180 ml @ 1 MCG/KG/MIN 5.88 mls/hr IV .Q24H [facility] Rx#: [id number] Norepinephrine 8 mg In 205.560 185.330 185.804 Sodium Chloride 0.9% 250 ml @ 0.05 MCG/KG/MIN 9. 482 mls/hr IV .Q24H [facility] Rx#:[id number] fentaNYL (PF). 1,000 mcg 96.664 93.236 In Sodium Chloride 0.9% 80 ml @ 0.25 MCG/KG/HR 2. 765 mls/hr IV .Q24H [facility] Rx#:[id number] propofoL 1,000 mg In 200 352.616 100 Empty Bag 1 bag @ Titrate IV .Q0M [facility] Rx#: [id number] Tube Feeding 40 0 Blood Product 0 Rc As-1 Unit 0 [id number] Hemodialysis 400 Other 60 Output: Urine 5 5 0 Hemodialysis 2400 Other: Voiding Method Indwelling Catheter Indwelling Catheter Indwelling Catheter ABP, PAP, CO, CI - Last Documented Arterial Blood Pressure 112/49 - Exam The patient has a tacheostomy tube, sedated and paralyzed, generally swollen 75-year-old white male, on assist-control mode of ventilation. Patient has significant subcutaneous air present in his face, eyelids, neck, bilateral chest, and bilateral arms compared to yesterday, there is obvious improvement in the subcutaneous emphysema of the face and the neck and the upper chest seems to be less distended and swollen compared to yesterday. HEAD: Normocephalic/atraumatic. EYES: Normal reaction of pupils, equal size. Conjunctiva pink, sclera white. NOSE: Clear with pink turbinates. THROAT: No erythema or exudates. NECK: No masses, no JVD, no thyroid enlargement, no adenopathy. The patient has a Bivona #8 tracheostomy tube CHEST: No chest wall deformity. Symmetrical expansion. LUNGS: Equal air entry with diminished breath sounds bilaterally, with diffuse crackles and there is subcutaneous emphysema as noted CVS: Regular rate and rhythm, normal S1 and S2, no gallops, no murmurs, no rubs ABDOMEN: Soft, nontender. No hepatosplenomegaly, normal bowel sounds, no guarding or rigidity. PEG tube is in place with tube feedings infusing EXTREMITIES: No clubbing, 1+ generalized edema no cyanosis, 2+ pulses and upper and lower extremities. Patient has right groin temporary hemodialysis catheter in place MUSCULOSKELETAL: Muscle strength and tone normal. SPINE: No scoliosis or deformity SKIN: No rashes CENTRAL NERVOUS SYSTEM: Sedated, intubated and paralyzed No focal deficits, tone developed nausea or in place, is normal in all 4 extremities. - Labs CBC & Chem 7: 07/03/21 04:00 07/03/21 04:00 Labs: Abnormal Lab Results - Last 24 Hours (Table) 06/30/21 07/02/21 07/02/21 Range/Units 10:00 11:31 17:33 WBC (3.8-10.6) k/uL RBC (4.30-5.90) m/uL Hgb (13.0-17.5) gm/dL Hct (39.0-53.0) % RDW (11.5-15.5) % Plt Count (150-450) k/uL Neutrophils # (Manual) (1.3-7.7) k/uL Lymphocytes # (Manual) (1.0-4.8) k/uL Metamyelocytes # (Man) (0) k/uL Myelocytes # (Manual) (0) k/uL Promyelocytes # (Man) (0) k/uL D-Dimer (<0.60) mg/L FEU ABG pH (7.35-7.45) ABG pCO2 (35-45) mmHg ABG pO2 (83-108) mmHg ABG HCO3 (21-25) mmol/L ABG O2 Saturation (94-97) % Sodium (137-145) mmol/L Carbon Dioxide (22-30) mmol/L BUN (9-20) mg/dL Creatinine (0.66-1.25) mg/dL Glucose (74-99) mg/dL POC Glucose (mg/dL) 107 H 125 H (75-99) mg/dL Calcium (8.4-10.2) mg/dL Lactate Dehydrogenase (313-618) U/L C-Reactive Protein (<1.0) mg/dL Total Protein (6.3-8.2) g/dL Albumin (3.5-5.0) g/dL Viral Test See Below A Crossmatch 07/02/21 07/03/21 07/03/21 Range/Units 23:57 04:00 04:00 WBC 23.5 H (3.8-10.6) k/uL RBC 2.20 L (4.30-5.90) m/uL Hgb 6.8 L* (13.0-17.5) gm/dL Hct 20.3 L (39.0-53.0) % RDW 17.0 H (11.5-15.5) % Plt Count 670 H (150-450) k/uL Neutrophils # (Manual) 19.20 H (1.3-7.7) k/uL Lymphocytes # (Manual) 0.47 L (1.0-4.8) k/uL Metamyelocytes # (Man) 2.12 H (0) k/uL Myelocytes # (Manual) 0.47 H (0) k/uL Promyelocytes # (Man) 0.24 H (0) k/uL D-Dimer 6.43 H (<0.60) mg/L FEU ABG pH (7.35-7.45) ABG pCO2 (35-45) mmHg ABG pO2 (83-108) mmHg ABG HCO3 (21-25) mmol/L ABG O2 Saturation (94-97) % Sodium (137-145) mmol/L Carbon Dioxide (22-30) mmol/L BUN (9-20) mg/dL Creatinine (0.66-1.25) mg/dL Glucose (74-99) mg/dL POC Glucose (mg/dL) 135 H (75-99) mg/dL Calcium (8.4-10.2) mg/dL Lactate Dehydrogenase (313-618) U/L C-Reactive Protein (<1.0) mg/dL Total Protein (6.3-8.2) g/dL Albumin (3.5-5.0) g/dL Viral Test Crossmatch 07/03/21 07/03/21 07/03/21 Range/Units 04:00 05:10 05:42 WBC (3.8-10.6) k/uL RBC (4.30-5.90) m/uL Hgb (13.0-17.5) gm/dL Hct (39.0-53.0) % RDW (11.5-15.5) % Plt Count (150-450) k/uL Neutrophils # (Manual) (1.3-7.7) k/uL Lymphocytes # (Manual) (1.0-4.8) k/uL Metamyelocytes # (Man) (0) k/uL Myelocytes # (Manual) (0) k/uL Promyelocytes # (Man) (0) k/uL D-Dimer (<0.60) mg/L FEU ABG pH 7.07 L* (7.35-7.45) ABG pCO2 66 H (35-45) mmHg ABG pO2 81 L (83-108) mmHg ABG HCO3 19 L (21-25) mmol/L ABG O2 Saturation 93.6 L (94-97) % Sodium 134 L (137-145) mmol/L Carbon Dioxide 16 L (22-30) mmol/L BUN 56 H (9-20) mg/dL Creatinine 3.48 H (0.66-1.25) mg/dL Glucose 107 H (74-99) mg/dL POC Glucose (mg/dL) 107 H (75-99) mg/dL Calcium 8.2 L (8.4-10.2) mg/dL Lactate Dehydrogenase 666 H (313-618) U/L C-Reactive Protein 6.2 H (<1.0) mg/dL Total Protein 4.7 L (6.3-8.2) g/dL Albumin 2.1 L (3.5-5.0) g/dL Viral Test Crossmatch 07/03/21 Range/Units 05:45 WBC (3.8-10.6) k/uL RBC (4.30-5.90) m/uL Hgb (13.0-17.5) gm/dL Hct (39.0-53.0) % RDW (11.5-15.5) % Plt Count (150-450) k/uL Neutrophils # (Manual) (1.3-7.7) k/uL Lymphocytes # (Manual) (1.0-4.8) k/uL Metamyelocytes # (Man) (0) k/uL Myelocytes # (Manual) (0) k/uL Promyelocytes # (Man) (0) k/uL D-Dimer (<0.60) mg/L FEU ABG pH (7.35-7.45) ABG pCO2 (35-45) mmHg ABG pO2 (83-108) mmHg ABG HCO3 (21-25) mmol/L ABG O2 Saturation (94-97) % Sodium (137-145) mmol/L Carbon Dioxide (22-30) mmol/L BUN (9-20) mg/dL Creatinine (0.66-1.25) mg/dL Glucose (74-99) mg/dL POC Glucose (mg/dL) (75-99) mg/dL Calcium (8.4-10.2) mg/dL Lactate Dehydrogenase (313-618) U/L C-Reactive Protein (<1.0) mg/dL Total Protein (6.3-8.2) g/dL Albumin (3.5-5.0) g/dL Viral Test Crossmatch See Detail Microbiology - Last 24 Hours (Table) 06/30/21 10:00 Gram Stain - Final Bronchoalviolar Lavage - Left Bronchial Washings Culture - Final Aspergillus not fumigatus Assessment and Plan Plan: 1 Acute hypoxic respiratory failure secondary to COVID-19 pneumonia, patient was not vaccinated. He failed BiPAP therapy, was intubated on 06/15/2021, he remains sedated and paralyzed on assist control mode of ventilation with a PEEP of 14 and FiO2 of 80% today. The patient developed prolonged respiratory failure requiring vent support and the patient has undergone a tracheostomy tube insertion on 06/28/2021 and the patient has a #8 Bivona trache[address] tube in place. Remains on Nimbex, Diprivan the course was also complicated by extensive subcutaneous emphysema, no complications with associated pneumonia. No evidence of any pneumothorax. . The patient is post bronchoscopy on 06/30/2021, awaiting final cultures. Earlier cultures indicated Aspergillus and Pseudomonas, still on a combination of voriconazole and cefepime. Based on the bronchoscopy note, there is extensive necrosis of the bronchial airways involving the right mainstem bronchus and the bronchus intermedius. Pictures from bronch was noted. Awaiting the results of the bronchioloalveolar lavage. Chest x-ray was noted. Blood gases was noted. The repeat bronchial alveolar lavage showing Aspergillus species and the patient remains on voriconazole. High suspicion for post COVID-19 related superinfection with a fungus/Aspergillus. There was extensive amount of necrosis and necrotic debris's along the right lung on a recent bronchial alveolar lavage. On today's evaluation, no cervical changes condition. The patient remains on a PEEP of 14 with an FiO2 of 80%. Peak and static pressures are elevated. Chest x-ray showing diffuse but the pulmonary infiltrates. Hepatitis emphysema is improving. 2 Subcutaneous emphysema, and pneumomediastinum. subcutaneous emphysema , essentially unchanged compared to yesterday 3 Acute kidney injury, patient was started on hemodialysis on 06/20/2021, and the patient is receiving periodic hemodialysis, and the last bottle hemodialysis was yesterday and the patient will be dialyzed today with a high bicarbonate bath. 4 History of chronic atrial fibrillation, with recent RVR, currently on amiodar one and Eliquis for anticoagulation him a the patient is having episodes this of atrial fibrillation, 5 Pseudomonas aeruginosa in his sputum culture, possibly related to immunosuppression, currently on Zosyn, and Diflucan for Essence albicans in the sputum culture. Most recent sputum culture from 06/22/2021 shows Aspergillus not fumigatus. Current antibiotic coverage includes cefepime and voriconazole 6 Extensive oropharyngeal candidiasis, patient was on Diflucan, currently on voriconazole 7 Leukocytosis, resolved, and white blood cell count is 23 8 Elevated d-dimer, and inflammatory markers related to acute COVID-19 pneumonia, , inflammatory markers are slightly improved but still remain elevated 9 Fluid overload and the patient is undergoing hemodialysis periodically 10 hypotension, currently on low dose norepinephrine infusion for hemodynamic support. 11 acidosis which is a combination of metabolic and respiratory acidosis. Serum bicarb is down to 16 12 sepsis with secondary to hypotension, currently on norepinephrine infusion running at 0.14 mcg/kg per minute. The patient remains covered with a broad- spectrum antibiotics including cefepime and voriconazole Plan: Continue ventilator support a bicarb Total 100 mg of sodium bicarbonate gases acidosis. We'll give them also a high bicarbonate bath during dialysis. Attempts to drop the FiO2 down to 70% and monitor the pulse ox Given a unit of packed RBCs and monitor the hemoglobin The patient is post bronchoscopy and bronchial alveolar lavage. The patient also had an extensive amount of endobronchial debris's removed from the right lung , cultures again showing Aspergillus species. The patient remains on voriconazole. May consider repeating the bronchoscopy. Continue antibiotic coverage Wean off pressors gradually Hemodialysis per nephrology , suggest dialysis today Continue Decadron, continue antibiotics Continue tube feedings, continue stool softeners and Reglan, the tube feeds will be restarted today in the lower rate of 10 mL an hour and will monitor the residuals Overall prognosis is guarded Follow-up chest x-ray labs, inflammatory markers tomorrow Daily labs, daily blood gas Eliquis at 2.5 mg by mouth twice a day and watch for any signs of bleeding Unfortunately the prognosis extremely poor. The patient has signs of multisystem organ failure post COVID-19 related pneumonia and ARDS. I had a lengthy discussion with the family yesterday. I spoke to the daughter and the . Family was informed of the poor prognosis. The family wanted to proceed with ongoing treatment with understanding that the outcome is poor and the patient has a high likelihood for mortality/staph due to above-mentioned comorbidities. We'll continue to follow. Critical care sindy, >30 min Time with Patient: Greater than 30
[2021-07-03] MEDS: METOPROLOL TARTRATE 25 MG TAB PO SCH ×2 (10:56→13:44)
[2021-07-03 11:38] LABS: Glucose,Whole Blood 103 mg/dL (75-99)
--- NOTE | 2021-07-03 11:57 | PN ---
PROGRESS NOTE Patient is seen for followup for acute kidney injury, currently hemodialysis-dependent. Patient is seen on hemodialysis. FiO2 is at 70%. On examination today, blood pressure is 108/53, heart rate 105 per minute. Examination of lower extremities shows significant edema with severe scrotal edema noted as well. Patient's femoral catheter is in the right femoral vein. Abdomen is soft, distended. Labs show sodium 134, potassium 4.8. CO2 is 16, BUN 56, creatinine 3.48, hemoglobin of 6.8 g/dL. ASSESSMENT: 1. Acute kidney injury, acute tubular necrosis, currently hemodialysis-dependent. 2. Volume overload, being dialyzed on a daily basis. UF of about 2 L every day. No significant urine output. 3. Anemia. Patient will be transfused packed RBCs. 4. Acute hypoxic respiratory failure, multifactorial, including COVID pneumonia, bacterial pneumonia and Aspergillus pneumonia. 5. Metabolic acidosis associated with renal failure hypercatabolic state. Will adjust the dialysis bath for the acidosis. PLAN: Hemodialysis today. Adjust the bicarb bath for the metabolic acidosis. MMODL / IJN: [id number] /
--- NOTE | 2021-07-03 12:36 | P.PN ---
Subjective Progress Note Date: 07/03/21 This is a 75-year-old male who was recently admitted with COVID-19 infection with acute hypoxic respiratory failure and is being closely monitored. Pulmonary following closely and patient is maintained on dexamethasone along with Lovenox and vitamin and zinc supplements. Patient currently maintained on 15 L high flow via nasal cannula with supplemental use of 15 L nonrebreather. Patient states his breathing is slightly improved and not requiring a nonrebreather as often. Instructed the patient to use incentive spirometer and increase activity as tolerated. Patient continues to be extremely weak and will have PT/OT evaluate the patient once more stable. 06/06/2021 Patient is seen in follow-up this morning states his shortness of breath has slightly worsened and his recovery time and working to breathe has become more difficult. Patient is continued on 15 L high flow along with nonrebreather intermittently and having to use it more frequently today he states. Incentive spirometer at the bedside and instructed the patient to continue to use at least 10 times every hour while awake and encouraged increased activity as tolerated. Patient states he walked to the bathroom with assistance and became extremely dyspneic. Patient is afebrile. D-dimer is 4.72 with a WBC of 16 and hemoglobin is stable at 15.4. Sodium is 138 with a potassium of 4.5 and current creatinine is 0.63. LDH is elevated at 2492 and CRP is 6.5. Chest x-ray today shows findings consistent with COVID-19 pneumonia with bilateral interstitial and airspace disease present. 06/07/2021 Patient is seen and evaluated in follow up this morning and is having increasing shortness of breath and on 15L high flow via NC and 15 L non-rebreather. Patient has been back in bed and attempting position changes frequently along with prone position. Patient continues on lovenox, baracitinib, vitamin and zinc supplement s,and steroids. Pulmonary following closely. 06/10/2021 Patient is seen in follow up this morning and is now maintained on airvo at 60% and continues to be extremely dyspneic with minimal exertion. Patient also continues with 15L Non rebreather as needed. Patient is maintained on lovenox along with baricitinib and IV steroids with pulmonary following. Patient states he has no reserve and taking longer periods of time to recover with attempting to position change or use the urinal. 06/11/2021 Patient is seen in follow-up and evaluated this morning and is continued on Airvo and maintaining oxygen saturations in the low 90s. Pulmonary following closely. Patient is afebrile. Patient is continued on vitamin and zinc supplements along with Baricitinib and subcutaneous Lovenox along with IV steroids and will continue. Patient's d-dimer today is elevated at 18.25 and will increase Lovenox to 50 subcu twice daily. White blood count today is 18.6 and hemoglobin is stable at 13.7, sodium is 139 with a potassium of 4.3 current creatinine is 0.7. Inflammatory markers are elevated with some trending down and CRP is 1.5, LDH is 1968 and alk phos is 168. Patient is afebrile. Patient continues to be extremely anxious and will continue Xanax as needed. Encouraged increase activity as tolerated and continued position changes with incentive spirometer use. 06/12/2021 Patient is seen in follow-up this morning with no acute issues noted overnight. Patient continues on Airvo with a flow rate of 55 and FiO2 of 80% maintaining oxygen saturations above 90%. Pulmonary following closely and we'll continue to wean as tolerated. Patient continues on Lovenox twice daily along with vitamin and zinc supplements and continued on IV steroids along with albuterol and Baricitinib. White blood count is 23.7 with a hemoglobin of 14.1, sodium is 139 with a potassium of 4.4 and current creatinine is 0.62. Will repeat chest x-ray along with inflammatory markers in the morning. 06/13/2021 Patient is seen and evaluated in follow-up as morning and continues to be on Airvo. Patient appears to be more raspy with some sputum and congested today with a hoarse voice. Infectious disease and pulmonary following closely. Sputum culture from 06/02 just today preliminary showing gram-negative bacilli along with Essence albicans and patient is being started on IV cefepime with repeat sputum culture ordered along with oral Diflucan. White blood count is 23.5 with hemoglobin of 13.8, sodium is 137 and potassium is 5.5 and current creatinine is 0.55. LFTs are mildly elevated. Repeat d-dimer along with CRP and LDH have been ordered. Will repeat a.m. labs. Chest x-ray today shows con tinued peripheral and lower lung interstitial infiltrates of Covid pneumonia without significant change. 06/14/2021 Patient is seen and evaluated in follow-up this morning continues to be dyspneic and requesting to go to the bed as he has been sitting up in the chair all day. Patient has been started on Diflucan along with IV cefepime and sputum culture from 06/02/2021 resulted showing Pseudomonas aeruginosa along with Essence albicans. Infectious disease is following closely. Patient is completing Baricitinib and will be transitioned to oral prednisone taper with pulmonary following closely. Patient has been started on eliquis. D-dimer today has trended down to 11.02, LDH is 2178, CRP is 3.2, liver functions trending down. White blood count slightly trending down at 20.2 and hemoglobin is stable at 13.7, sodium is 136 with a potassium of 4.3 and current creatinine is 0.57. Continues to have a mildly raspy voice with some throat dryness and will add Cepacol. 06/15/2021 Patient evaluated in bed and is resting on the BiPAP in the intensive care unit, he had desaturated this morning will be moved to the bathroom and initially was on a 15L HF, however is now requiring BiPAP. Patient was started on a Precedex drip. Repeat chest x-ray today which revealed persistent multifocal and confluent bilateral reticulonodular opacities is consistent with known coronary infection more prominent in the lower lungs. Patient finished a course of therapy with Baricitinib and transitioned to oral prednisone. Labs reviewed today include a white blood cell count 21.2, hemoglobin of 12.5. Blood gases show a pO2 of 32 and O2 saturation of 50.3. Chloride is 110, CO2 20, sodium 137, potassium 4. LDH is worse today at 2277, alk phos 158, CRP is trending upwards of 4.6. Patient has remained afebrile, heart rate is now 83, respirations 32, blood pressure 124/68. Oxygen saturation is maintaining in the mid to high 80s on 100% BiPAP. Patient is nothing by mouth and oral medications are unable to be given. Patient is on IV cefepime for a sputum culture positive for Pseudomonas. He is IV Diflucan for oral candidiasis that was improving as of yesterday. 06/16/2021 Patient is evaluated in the intensive care unit, he is status post intubation and has NG tube in place. Labs reviewed today included white blood cell, 44.2, d-dimer greater than 34. ABGs from the A-line included a pH of 7.15, pCO2 of 71, total CO2 is 27 and oxygen saturation of 98. Bicarb is 25 and his pO2 is 107. Additional labs include a serum potassium 5.1, chloride of 109, BUN of 27, creatinine 1.06. Vital signs include a heart rate of 123 tachycardia, respiratory rate of 36, blood pressure 100/50, he is 98% oxygen saturation. Patient is on vasopressors for his blood pressure. Repeat blood cultures are negative. Patient is receiving propofol for sedation. His chest x-ray was reviewed which is showing bilateral pulmonary infiltrates demonstrating COVID- 19 pneumonia with ARDS. Patient is still getting IV cefepime for a sputum culture Pseudomonas although his pro calcitonin level is 0.03 which is not usually indicative of a bacterial infection. Additional inflammatory markers remain elevated. Patient did receive 2 L saline bolus. Repeat labs in the morning, prognosis is guarded for this patient. 06/17/2021 Patient is seen in follow-up continues to be monitored closely in the ICU with multiple medical consultations following. Prognosis is extremely guarded. Patient's respiratory status significantly worsened requiring mechanical ventilation and intubation and currently patient is sedated. White blood count is worsened at 26.1 and hemoglobin is 12.2, d-dimer is 27.06, ABG is 7.16 pH with a pCO2 of 57 and a pO2 of 68 and bicarb is 20, sodium is 140 with a potassium of 5.0 and current creatinine has worsened at 2.29 pro calcitonin is 24.40. Infectious disease along with pulmonary pattern maker programer following closely. Patient continues on cefepime along with eliquis, vitamin and zinc supplements and patient has finished Baricitinib. Patient was on oral Decadron and is being transitioned back to IV dexamethasone along with Diflucan. Patient was given a dose of IV Lasix and nephrology has been consulted. Cardiology consulted as well and patient is currently on amiodarone drip along with Cleviprex and currently sedated on propofol. Patient also has norepinephrine drip as well. Patient being started on sodium bicarb drip. Patient also has low-grade fevers. 06/18/2021 Patient is seen in follow up in the ICU and maintained on mechanical vent intubated and sedated. Patient continues on NImbex, sodium bicarb, amiodarone, and being started on fentanyl as IV lasix drip with multiple medical consultations following. Kidney functions continue to deteriorate with nephrology following closely. Discussion being had about possible hemodialysis if kidney functions continue to worsen. Creatinine currently 3.69 today. 06/19/2021 Patient remains on mechanical vent with minimal urine output note and extensive volume overload with worsening kidney functions and would like to proceed with hemodialysis catheter placement with nephrology following closely. Multiple consultations following and Dr. Mann consulted for hemodialysis catheter placement and will hold eliquis. Amiodarone being transitioned to oral with cardiology following closely. Continue close monitoring in the ICU. Overall Prognosis remains extremely poor and guarded. 06/20/2021 Patient is seen and evaluated in follow-up continue to be closely monitored with multiple medical consultations following in the ICU. Patient remains intubated on mechanical ventilation and sedated. Kidney functions continue to worsen and patient is an extensive volume overload and has received dialysis catheter today and will initiate hemodialysis. Patient was maintained on IV Lasix drip which is being transitioned to IV push Lasix twice daily with nephrology following closely. Patient also continues on IV cefepime along with dexamethasone, vitamin and zinc supplements and continues on eliquis as well. White blood count 11.9 and hemoglobin is 9.6, platelets are 61 and d-dimer is 8.40. Sodium is 135 with a potassium of 5.0 and current BUN is 99 with a creatinine of 5.23. LDH is 1015 and pro calcitonin is 13.10. Prognosis remains extremely guarded. 06/21/2021 Patient is evaluated in follow up this morning and continues to be monitored closely in the ICU. On mechanical vent with an FI02 of 50%. Currently receiving hemodialysis and will likely require daily treatments if tolerated for extensive overload. Patient continues on IV lasix twice daily along with Nimbex, propofol, and fentanyl. Chest xray done today. Patient continues on IV cefepime with most recent repeat sputum culture revealing no growth. Infectious disease following closely. 06/22/2021 Patient remains intubated in the ICU, on ventilatory before meals settings, tidal volume 450, 50% FiO2, PEEP of 16, saturating 80%. ABG showing pO2 66, pCO2 42, pH 7.32, he was dialyzed for 2-1/2 L removed., He is making urine He remains sedated with propofol and he is paralyzed with Nimbex. His sputum is growing pseudomonas receiving antimicrobial therapy of cefepime, ID is following. No fever this morning, blood pressure 09/26/1939/50. Chest x-ray showing extensive bilateral airspace disease, correlate for pneumonia or ARDS. In atrial fibrillation with controlled ventricular rate 06/23/2021 Patient remains intubated on ventilatory support in the ICU, currently on assist control, 55% FiO2, PEEP of 14, TG 450. ABG this morning showing pH 7.31, pCO2 43, pO2 54, bicarb 22. O2 saturations marginal 90-91%, blood pressure stable. He remains in atrial fibrillation, with controlled ventricular rate, antic oagulated with Eliquis. Labs today show sodium 135, creatinine 4.18, WBC 12.7, hemoglobin 8.3 platelets 40. He is on IV Lasix, low urine output 270 ml yesterday Continue systemic steroids of Decadron 6 daily, eyes receiving antimicrobial therapy with cefepime, and fluconazole. sedated with fentanyl. 06/24/2021 Patient is seen and evaluated continues to be closely monitored in the ICU. Patient is currently receiving hemodialysis with an attempt of 2 L removal as the goal is 3 although patient's blood pressure is not tolerating. Nephrology and pulmonary pattern maker programer following closely. General surgery has been consulted for possible PEG and trach tube placement. Patient continues on Cleviprex along with fentanyl and propofol, IV dexamethasone, vitamin and zinc supplements, scheduled Reglan and IV cefepime. No reported bowel movements and patient not tolerating tube feeds with a large amount of residual noted in the NG. Chest x- ray today shows interval development of pneumomediastinum is suspected with arts and progression of subcutaneous emphysema. 06/25/2021 Patient is seen this morning in follow-up continues to be closely monitored in the ICU with multiple medical consultations following. Patient did not receive hemodialysis today and plan is scheduled for tomorrow with nephrology following closely. Eliquis remains on hold as general surgery plans for tracheostomy and PEG tube placement tomorrow. Patient continues to have no bowel movement and have ordered fleets enema and will continue with bowel regimen. Chest x-ray today shows continued extensive overlying subcutaneous emphysema with pneumomediastinum and bilateral compliant reticulonodular opacities related to COVID-19 infection again noted with no significant change from previous. Patient is maintained on IV cefepime along with Cleviprex, IV dexamethasone, fentanyl and propofol, scheduled Reglan and is also being started on sodium bicarb. 06/26/2021 Patient is seen and evaluated this morning continues to be on mechanical vent and intubated and sedated being closely monitored in the ICU. Multiple medical consultations following including general surgery and plan is for tracheostomy and PEG tube placement today. Eliquis has been on hold along with tube feeds and will discuss with surgery about initiating tube feeds and resuming anticoagulant. Per nursing staff patient had small amount of blood noted at the NG tube along with patient having a bowel movement with blood noted and hemoglo bin today is 7.9, platelets are 66. Patient also continues on IV cefepime along with IV dexamethasone, vitamin and zinc supplements and will continue. Patient maintained on Cleviprex along with fentanyl and propofol. Patient is scheduled to receive dialysis today with nephrology following closely. Chest x-ray today personally reviewed by me shows possible interval development of right-sided pn eumothorax although pneumothorax evaluation is limited due to extensive subcutaneous emphysema present bilaterally along with worsening right lower lobe consolidation, diffuse bilateral infiltrates. Pulmonary pattern maker programer is following closely. 06/27/2021 Patient is seen and evaluated in follow-up today status post receiving tracheostomy and continues to be sedated on the vent and currently receiving hemodialysis today. Patient continues to be closely monitored in the ICU with multiple medical consultations following. Patient continues to have extensive swelling and edema with noted subcutaneous emphysema that continues to worsen. PEG tube was also attempted by surgery and unsuccessful given the abdominal wall thickening and extensive edema noted. NG tube to be replaced and will continue tube feedings via NG. Patient did receive hemodialysis yesterday and able to tolerate approximately 2-2-1/2 L although blood pressure continued to drop and will continue with 2 L per nephrology. Patient continues on IV cefepime along with Nimbex, IV dexamethasone, fentanyl and propofol. Patient also continues on vitamin and zinc supplements and Eliquis has been resumed. 06/28/2021 Patient is evaluated this morning and continues to be in the ICU being closely monitored. Multiple medical consultations following including nephrology. Patient has been receiving daily hemodialysis as he continues to have extensive volume overload and edema noted throughout including the scrotum. Facial s ubcutaneous emphysema has worsened and continues to show on chest xray. Patient is also having some nasal bleeding and eliquis has been placed on hold. Blood pressure is elevated and will start Cleviprex. Patient continues on IV cefepime as well. 07/01/2021 Patient continues to be in the ICU on mechanical vent via trach and sedated. Multiple medical consultations following and patient is receiving daily hemodialysis with nephrology following closely. chest xray today shows no significant changes from previous exam. Patient is status post bronchoscopy and cultures pending. Patient is continued on cefepime and antifungals with ID following closely. Prognosis remains quite guarded. 07/02/2021 Patient is seen and evaluated continues to be closely monitored in the ICU with multiple medical consultations following. Patient is receiving daily dialysis for extensive volume overload with nephrology following closely. Pulmonary pattern maker programer following closely as well along with surgery and patient continues to be intubated and sedated on vent via tracheostomy. Patient anticoagulant was on hold as patient was having extensive bleeding from the nasal passage with no further bleeding noted at this time and will attempt to resume Eliquis with close monitoring. Patient also continues on IV cefepime along with antifungal voriconazole with infectious disease following closely. Patient recently underwent bronchoscopy with BAL with pulmonary and awaiting for cultures are finalized. 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 Chest x-ray today shows very limited exam due to severe bilateral subcutaneous emphysema. Persistent mild pneumomediastinum is suspected with continued diffuse bilateral interstitial and airspace disease that may have slight improvement on the left, NG tube possibly needing advancement further into the stomach. 07/03/2021 Patient is seen and evaluated in follow-up this morning continues to be in the ICU in critical condition. Multiple medical consultations following including nephrology and pulmonary. Infectious disease also following and patient is maintained on voriconazole and cefepime has been discontinued. Patient continues to be sedated on propofol and fentanyl and is on norepinephrine for low blood pressure. Patient being given some sodium bicarb with dialysis today. Patient has been receiving daily dialysis as he continues to be in volume overload. Eliquis has been resumed with no obvious bleeding noted although hemoglobin found to be 6.8 today and receiving a unit of PRBC. She also continues on IV dexamethasone at 4 mg daily along with vitamin and zinc supplements and will continue. Labs: Sodium is 134, potassium is 4.8, BUN 56, creatinine is 3.48, WBC 23.5, hemoglobin is 6.8, platelets 670, ldh 666, crp 6.2, d dimer 6.43, ABG has worsened and pH is 7.07 with a pCO2 of 66, pO2 is 81, bicarb is 19, total CO2 is 21 and O2 saturation is 93.6 Review of systems: Unable to complete a full review of symptoms as patient is sedated and on a ventilator via recent tracheostomy placement. Active Medications Acetaminophen (Acetaminophen Tab 325 Mg Tab) 650 mg PO Q6HR PRN PRN Reason: Fever and/ or Mild Pain Last Admin: 06/14/21 22:22 Dose: 650 mg Documented by: Albuterol Sulfate (Albuterol Hfa Inhaler) 2 puff INHALATION RT-QID [facility] Last Admin: 07/02/21 11:19 Dose: 2 puff Documented by: Albuterol Sulfate (Albuterol Hfa Inhaler) 2 puff INHALATION RT-QID PRN PRN Reason: Shortness Of Breath Or Wheezing Last Admin: 06/15/21 03:30 Dose: 2 puff Documented by: Amiodarone HCl (Amiodarone 200 Mg Tab) 200 mg PO BID [facility] Last Admin: 07/01/21 20:42 Dose: 200 mg Documented by: Apixaban (Apixaban 2.5 Mg Tablet) 2.5 mg PO BID [facility]; Protocol Artificial Tears (Artificial Tears-Hypromellose Drops 15 Ml Btl) 2 drops BOTH EYES Q4HR [facility] Last Admin: 07/02/21 11:37 Dose: Not Given Documented by: Ascorbic Acid (Ascorbic Acid 500 Mg Tab) 500 mg PO DAILY [facility] Last Admin: 07/01/21 09:28 Dose: 500 mg Documented by: Bisacodyl (Bisacodyl 10 Mg Supp) 10 mg RECTAL DAILY [facility] Last Admin: 07/01/21 09:30 Dose: 10 mg Documented by: Calcium Acetate (Calcium Acetate 667 Mg Tab) 667 mg PO TID-W/MEALS [facility] Last Admin: 07/02/21 06:39 Dose: 667 mg Documented by: Chlorhexidine Gluconate (Chlorhexidine Gluconate 15 Ml Cup) 15 ml MUCOUS MEM BID [facility] Last Admin: 07/01/21 20:42 Dose: 15 ml Documented by: Cholecalciferol (Cholecalciferol 25 Mcg (1000 Iu) Tablet) 25 mcg PO DAILY [facility] Last Admin: 07/01/21 09:29 Dose: 25 mcg Documented by: Cyanocobalamin (Cyanocobalamin 500 Mcg Tab) 1,000 mcg PO DAILY [facility] Last Admin: 07/01/21 09:29 Dose: 1,000 mcg Documented by: Darbepoetin Shalom (Darbepoetin Shalom 40 Mcg/0.4 Ml Syringe) 40 mcg SQ Q7D [facility] Last Admin: 06/27/21 12:57 Dose: 40 mcg Documented by: Dexamethasone Sodium Phosphate (Dexamethasone Sod Phosphate 4 Mg/Ml 1 Ml Vial) 4 mg IV DAILY [facility] Last Admin: 07/01/21 09:29 Dose: 4 mg Documented by: Propofol 1,000 mg/ IV Solution 100 mls @ 0 mls/hr IV .Q0M [facility]; Protocol Last Admin: 07/02/21 06:27 Dose: 50 mcg/kg/min, 35.04 mls/hr Documented by: Norepinephrine Bitartrate 8 mg (/ Sodium Chloride) 258 mls @ 9.482 mls/hr IV .Q24H [facility]; Protocol Last Titration: 07/02/21 11:36 Dose: 0.14 mcg/kg/min, 26.548 mls/hr Documented by: Cisatracurium Besylate 200 mg/ (Sodium Chloride) 200 mls @ 5.88 mls/hr IV .Q24H [facility]; Protocol Last Admin: 07/02/21 03:14 Dose: 3 mcg/kg/min, 17.64 mls/hr Documented by: Fentanyl Citrate 1,000 mcg/ (Sodium Chloride) 100 mls @ 2.765 mls/hr IV .Q24H [facility]; Protocol Last Admin: 07/02/21 00:02 Dose: 0.6 mcg/kg/hr, 6.636 mls/hr Documented by: Cefepime HCl 1 gm/ Sodium (Chloride) 50 mls @ 12.5 mls/hr IVPB HS [facility] Last Admin: 07/01/21 20:42 Dose: 12.5 mls/hr Documented by: Clevidipine 25 mg/ IV Solution 50 mls @ 2 mls/hr IV .Q24H [facility]; Protocol Last Admin: 07/01/21 13:53 Dose: Not Given Documented by: Voriconazole 300 mg/ Sodium (Chloride) 100 mls @ 125 mls/hr IVPB Q12HR [facility] Last Admin: 07/01/21 20:42 Dose: 125 mls/hr Documented by: Metoclopramide HCl (Metoclopramide 5 Mg/Ml 2 Ml Vial) 5 mg IVP Q8H [facility] Last Admin: 07/02/21 03:59 Dose: 5 mg Documented by: Metoprolol Tartrate (Metoprolol Tartrate 25 Mg Tab) 25 mg PO DAILY [facility] Last Admin: 07/01/21 19:51 Dose: Not Given Documented by: Pantoprazole Sodium (Pantoprazole 40 Mg/10 Ml Vial) 40 mg IVP BID [facility] Last Admin: 07/01/21 20:42 Dose: 40 mg Documented by: Senna/Docusate Sodium (Sennosides-Docusate Sodium 1 Each Tab) 1 each PO DAILY [facility] Last Admin: 07/01/21 09:28 Dose: 1 each Documented by: Zinc Sulfate (Zinc Sulfate 220 Mg Cap) 220 mg PO DAILY [facility] Last Admin: 07/01/21 09:29 Dose: 220 mg Documented by: Physical exam: Gen: This is a 75-year-old male sedated and intubated on propofol and mechanical ventilation. Extensive edema and swelling noted throughout with some mild improvement of swelling noted on the left side of the face. Temp Is 97.8 F, pulse is 89, respirations are 38, blood pressure is 94/45 arterial, oxygen saturation is 90% on mechanical vent with an FiO2 of 80% HEENT: Head is atraumatic, normocephalic. Pupils equal, round. Sclerae is anicte blake. NG tube noted NECK: Supple. No JVD. No lymphadenopathy. No thyromegaly. Extensive subcutaneou s emphysema of the face and neck traveling down the arms and continues in the chest that is worsening daily LUNGS: Diminished breath sounds bilaterally with scattered coarse rhonchi and crackles noted at the bases. Extensive subcutaneous emphysema persists HEART: Irregular S1, S2 are muffled ABDOMEN: Soft. Edematous. obese. Hypoactive Bowel sounds are sluggish. No masses. No guarding or rigidity noted. EXTREMITIES: Extensive pitting edema noted of upper and lower bilateral extremities and much of the body. 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 Extensive Subcutaneous emphysema with pneumomediastinum as noted on x-ray acute renal failure likely ATN with worsening kidney functions and minimal urine output requiring hemodialysis volume overload secondary to ARF metabolic acidosis afib with RVR currently rate controlled on oral amiodarone and metoprolol Lactic acidosis secondary to above Initial sputum culture showing Essence albicans and pseudomonas aeruginosa and maintained on IV cefepime repeat sputum culture showing aspergillus not fumigatus Oral candidiasis, sputum cultures from 06/02/2021 Essence albicans Extensive interstitial bilateral COVID-19 pneumonia Elevated white blood count possibly secondary to above Possible subsegmental pulmonary embolism ruled out History of atrial fibrillation Anxiety Remote history of nicotine dependence GI prophylaxis: Protonix DVT prophylaxis: On eliquis Full code Plan: Recommend to continue with current medications and continue to closely monitor in the ICU. Patient remains on mechanical ventilation and intubated. Patient received tracheostomy placement with surgery. Patient continues with tube feeds via NG tube and will continue tube feeds via NG tube as patient was scheduled for PEG tube although unsuccessful placement given the extent of swelling noted in the abdomen. Patient continues on antifungals and IV cefepime has been discontinued with ID following closely as well. repeat sputum culture showing aspergillus not fumigatus with pseudomonas. Patient continues on vitamin and zinc supplements IV dexamethasone at 4 mg daily and will continue. Patient has completed Baricitinib. Patient with extensive volume overload and has been receiving daily hemodialysis with nephrology following closely. ABG as noted above. Patient to receive bicarb with hemodialysis today. status post bronchial washing awaiting cultures. No further bleeding noted from the NG and have resumed eliquis and monitor closely for any bleeding. Will repeat a.m. labs. Hemoglobin 6.8 today and receiving a unit of PRBC. Prognosis is extremely poor and guarded and will continue to monitor closely. Family wishes to proceed with full code measures. Objective - Vital Signs Vital signs: Vital Signs Temp 97.6 F 07/03/21 08:00 Pulse 93 07/03/21 08:00 Resp 36 H 07/03/21 08:00 BP 96/59 07/02/21 20:00 Pulse Ox 92 L 07/03/21 08:00 Intake & Output 10/07/03/21 07/03/21 18:59 06:59 18:59 Intake Total 1375.224 894.182 123 Output Total 2405 5 Balance -1029.776 889.182 123 Weight 120.8 kg 119.4 kg Intake: IV 233 263 23 0.9 130 230 20 Pressure bag 3 33 3 Voriconazole 300 mg In 100 Sodium Chloride 0.9% 100 ml @ 125 mls/hr IVPB Q12HR [facility] Rx#:[id number] Intake, IV Titration 702.224 631.182 100 Amount Cisatracurium 200 mg In 200 Sodium Chloride 0.9% 180 ml @ 1 MCG/KG/MIN 5.88 mls/hr IV .Q24H [facility] Rx#: [id number] Norepinephrine 8 mg In 205.560 185.330 Sodium Chloride 0.9% 250 ml @ 0.05 MCG/KG/MIN 9. 482 mls/hr IV .Q24H [facility] Rx#:[id number] fentaNYL (PF). 1,000 mcg 96.664 93.236 In Sodium Chloride 0.9% 80 ml @ 0.25 MCG/KG/HR 2. 765 mls/hr IV .Q24H [facility] Rx#:[id number] propofoL 1,000 mg In 200 352.616 100 Empty Bag 1 bag @ Titrate IV .Q0M [facility] Rx#: [id number] Tube Feeding 40 0 Blood Product 0 Rc As-1 Unit 0 [id number] Hemodialysis 400 Output: Urine 5 5 Hemodialysis 2400 Other: Voiding Method Indwelling Catheter Indwelling Catheter ABP, PAP, CO, CI - Last Documented Arterial Blood Pressure 100/41 - Labs CBC & Chem 7: 07/03/21 04:00 07/03/21 04:00 Labs: Abnormal Lab Results - Last 24 Hours (Table) 06/30/21 07/02/21 07/02/21 Range/Units 10:00 11:31 17:33 WBC (3.8-10.6) k/uL RBC (4.30-5.90) m/uL Hgb (13.0-17.5) gm/dL Hct (39.0-53.0) % RDW (11.5-15.5) % Plt Count (150-450) k/uL Neutrophils # (Manual) (1.3-7.7) k/uL Lymphocytes # (Manual) (1.0-4.8) k/uL Metamyelocytes # (Man) (0) k/uL Myelocytes # (Manual) (0) k/uL Promyelocytes # (Man) (0) k/uL D-Dimer (<0.60) mg/L FEU ABG pH (7.35-7.45) ABG pCO2 (35-45) mmHg ABG pO2 (83-108) mmHg ABG HCO3 (21-25) mmol/L ABG O2 Saturation (94-97) % Sodium (137-145) mmol/L Carbon Dioxide (22-30) mmol/L BUN (9-20) mg/dL Creatinine (0.66-1.25) mg/dL Glucose (74-99) mg/dL POC Glucose (mg/dL) 107 H 125 H (75-99) mg/dL Calcium (8.4-10.2) mg/dL Lactate Dehydrogenase (313-618) U/L C-Reactive Protein (<1.0) mg/dL Total Protein (6.3-8.2) g/dL Albumin (3.5-5.0) g/dL Viral Test See Below A Crossmatch 07/02/21 07/03/21 07/03/21 Range/Units 23:57 04:00 04:00 WBC 23.5 H (3.8-10.6) k/uL RBC 2.20 L (4.30-5.90) m/uL Hgb 6.8 L* (13.0-17.5) gm/dL Hct 20.3 L (39.0-53.0) % RDW 17.0 H (11.5-15.5) % Plt Count 670 H (150-450) k/uL Neutrophils # (Manual) 19.20 H (1.3-7.7) k/uL Lymphocytes # (Manual) 0.47 L (1.0-4.8) k/uL Metamyelocytes # (Man) 2.12 H (0) k/uL Myelocytes # (Manual) 0.47 H (0) k/uL Promyelocytes # (Man) 0.24 H (0) k/uL D-Dimer 6.43 H (<0.60) mg/L FEU ABG pH (7.35-7.45) ABG pCO2 (35-45) mmHg ABG pO2 (83-108) mmHg ABG HCO3 (21-25) mmol/L ABG O2 Saturation (94-97) % Sodium (137-145) mmol/L Carbon Dioxide (22-30) mmol/L BUN (9-20) mg/dL Creatinine (0.66-1.25) mg/dL Glucose (74-99) mg/dL POC Glucose (mg/dL) 135 H (75-99) mg/dL Calcium (8.4-10.2) mg/dL Lactate Dehydrogenase (313-618) U/L C-Reactive Protein (<1.0) mg/dL Total Protein (6.3-8.2) g/dL Albumin (3.5-5.0) g/dL Viral Test Crossmatch 07/03/21 07/03/21 07/03/21 Range/Units 04:00 05:10 05:42 WBC (3.8-10.6) k/uL RBC (4.30-5.90) m/uL Hgb (13.0-17.5) gm/dL Hct (39.0-53.0) % RDW (11.5-15.5) % Plt Count (150-450) k/uL Neutrophils # (Manual) (1.3-7.7) k/uL Lymphocytes # (Manual) (1.0-4.8) k/uL Metamyelocytes # (Man) (0) k/uL Myelocytes # (Manual) (0) k/uL Promyelocytes # (Man) (0) k/uL D-Dimer (<0.60) mg/L FEU ABG pH 7.07 L* (7.35-7.45) ABG pCO2 66 H (35-45) mmHg ABG pO2 81 L (83-108) mmHg ABG HCO3 19 L (21-25) mmol/L ABG O2 Saturation 93.6 L (94-97) % Sodium 134 L (137-145) mmol/L Carbon Dioxide 16 L (22-30) mmol/L BUN 56 H (9-20) mg/dL Creatinine 3.48 H (0.66-1.25) mg/dL Glucose 107 H (74-99) mg/dL POC Glucose (mg/dL) 107 H (75-99) mg/dL Calcium 8.2 L (8.4-10.2) mg/dL Lactate Dehydrogenase 666 H (313-618) U/L C-Reactive Protein 6.2 H (<1.0) mg/dL Total Protein 4.7 L (6.3-8.2) g/dL Albumin 2.1 L (3.5-5.0) g/dL Viral Test Crossmatch 07/03/21 Range/Units 05:45 WBC (3.8-10.6) k/uL RBC (4.30-5.90) m/uL Hgb (13.0-17.5) gm/dL Hct (39.0-53.0) % RDW (11.5-15.5) % Plt Count (150-450) k/uL Neutrophils # (Manual) (1.3-7.7) k/uL Lymphocytes # (Manual) (1.0-4.8) k/uL Metamyelocytes # (Man) (0) k/uL Myelocytes # (Manual) (0) k/uL Promyelocytes # (Man) (0) k/uL D-Dimer (<0.60) mg/L FEU ABG pH (7.35-7.45) ABG pCO2 (35-45) mmHg ABG pO2 (83-108) mmHg ABG HCO3 (21-25) mmol/L ABG O2 Saturation (94-97) % Sodium (137-145) mmol/L Carbon Dioxide (22-30) mmol/L BUN (9-20) mg/dL Creatinine (0.66-1.25) mg/dL Glucose (74-99) mg/dL POC Glucose (mg/dL) (75-99) mg/dL Calcium (8.4-10.2) mg/dL Lactate Dehydrogenase (313-618) U/L C-Reactive Protein (<1.0) mg/dL Total Protein (6.3-8.2) g/dL Albumin (3.5-5.0) g/dL Viral Test Crossmatch See Detail Microbiology - Last 24 Hours (Table) 06/30/21 10:00 Gram Stain - Final Bronchoalviolar Lavage - Left Bronchial Washings Culture - Final Aspergillus not fumigatus
--- NOTE | 2021-07-03 14:02 | P.PN ---
Subjective Progress Note Date: 07/03/21 CHIEF COMPLAINT: COVID-19 pneumonia HISTORY OF PRESENT ILLNESS: Patient currently ICU for COVID-19 pneumonia. He is on mechanically ventilation. He is status post tracheostomy placement on 06/26/2021. PEG tube insertion was aborted. Unable to see light reflex during EGD. Patient has NG tube in place for tube feedings. Patient is receiving blood transfusion for hemoglobin of 6.8. He is receiving hemodialysis. Afebrile WBC 23.5 PHYSICAL EXAM: VITAL SIGNS: Reviewed. GENERAL: Well-developed in no acute distress. HEENT: No sclera icterus. Extraocular movements grossly intact. Moist buccal m ucosa. Head is atraumatic, normocephalic. Tracheostomy site clean dry and intact ABDOMEN: Soft. NEUROLOGIC: On mechanical ventilation and sedated ASSESSMENT: 1. Acute hypoxic respiratory failure secondary to COVID-19 pneumonia. Patient requiring prolonged mechanical ventilation. Status post tracheostomy placement 2. Severe protein calorie malnutrition PLAN: -Continue ICU management -Continue supportive care -Continue tube feeds through NG tube Physician Purchase Price Analyst note has been reviewed by physician. Signing provider agrees with the documented findings, assessment, and plan of care. Objective - Vital Signs Vital signs: Vital Signs Temp 97.7 F 07/03/21 12:00 Pulse 123 H 07/03/21 13:00 Resp 36 H 07/03/21 13:00 BP 96/59 07/03/21 12:45 Pulse Ox 96 07/03/21 13:00 Intake & Output 07/02/21 07/03/21 07/03/21 18:59 06:59 18:59 Intake Total 1375.224 707.311 0588.004 Output Total 2405 5 0 Balance -1029.776 615.267 9908.004 Weight 120.8 kg 119.4 kg 119.4 kg Intake: IV 233 263 161 0.9 130 230 140 Pressure bag 3 33 21 Voriconazole 300 mg In 100 Sodium Chloride 0.9% 100 ml @ 125 mls/hr IVPB Q12HR [facility] Rx#:[id number] Intake, IV Titration 702.224 631.182 524.004 Amount Cisatracurium 200 mg In 200 115.444 Sodium Chloride 0.9% 180 ml @ 1 MCG/KG/MIN 5.88 mls/hr IV .Q24H [facility] Rx#: [id number] Norepinephrine 8 mg In 205.560 185.330 208.560 Sodium Chloride 0.9% 250 ml @ 0.05 MCG/KG/MIN 9. 482 mls/hr IV .Q24H [facility] Rx#:[id number] fentaNYL (PF). 1,000 mcg 96.664 93.236 In Sodium Chloride 0.9% 80 ml @ 0.25 MCG/KG/HR 2. 765 mls/hr IV .Q24H [facility] Rx#:[id number] propofoL 1,000 mg In 200 352.616 200.000 Empty Bag 1 bag @ Titrate IV .Q0M [facility] Rx#: [id number] Tube Feeding 40 0 Blood Product 310 Rc As-1 Unit 310 [id number] Hemodialysis 400 Other 60 Output: Urine 5 5 0 Hemodialysis 2400 Other: Voiding Method Indwelling Catheter Indwelling Catheter Indwelling Catheter ABP, PAP, CO, CI - Last Documented Arterial Blood Pressure 98/52 - Labs CBC & Chem 7: 07/03/21 04:00 07/03/21 04:00 Labs: Abnormal Lab Results - Last 24 Hours (Table) 07/02/21 07/02/21 07/03/21 Range/Units 17:33 23:57 04:00 WBC 23.5 H (3.8-10.6) k/uL RBC 2.20 L (4.30-5.90) m/uL Hgb 6.8 L* (13.0-17.5) gm/dL Hct 20.3 L (39.0-53.0) % RDW 17.0 H (11.5-15.5) % Plt Count 670 H (150-450) k/uL Neutrophils # (Manual) 19.20 H (1.3-7.7) k/uL Lymphocytes # (Manual) 0.47 L (1.0-4.8) k/uL Metamyelocytes # (Man) 2.12 H (0) k/uL Myelocytes # (Manual) 0.47 H (0) k/uL Promyelocytes # (Man) 0.24 H (0) k/uL D-Dimer (<0.60) mg/L FEU ABG pH (7.35-7.45) ABG pCO2 (35-45) mmHg ABG pO2 (83-108) mmHg ABG HCO3 (21-25) mmol/L ABG O2 Saturation (94-97) % Sodium (137-145) mmol/L Carbon Dioxide (22-30) mmol/L BUN (9-20) mg/dL Creatinine (0.66-1.25) mg/dL Glucose (74-99) mg/dL POC Glucose (mg/dL) 125 H 135 H (75-99) mg/dL Calcium (8.4-10.2) mg/dL Lactate Dehydrogenase (313-618) U/L C-Reactive Protein (<1.0) mg/dL Total Protein (6.3-8.2) g/dL Albumin (3.5-5.0) g/dL Crossmatch 07/03/21 07/03/21 07/03/21 Range/Units 04:00 04:00 05:10 WBC (3.8-10.6) k/uL RBC (4.30-5.90) m/uL Hgb (13.0-17.5) gm/dL Hct (39.0-53.0) % RDW (11.5-15.5) % Plt Count (150-450) k/uL Neutrophils # (Manual) (1.3-7.7) k/uL Lymphocytes # (Manual) (1.0-4.8) k/uL Metamyelocytes # (Man) (0) k/uL Myelocytes # (Manual) (0) k/uL Promyelocytes # (Man) (0) k/uL D-Dimer 6.43 H (<0.60) mg/L FEU ABG pH 7.07 L* (7.35-7.45) ABG pCO2 66 H (35-45) mmHg ABG pO2 81 L (83-108) mmHg ABG HCO3 19 L (21-25) mmol/L ABG O2 Saturation 93.6 L (94-97) % Sodium 134 L (137-145) mmol/L Carbon Dioxide 16 L (22-30) mmol/L BUN 56 H (9-20) mg/dL Creatinine 3.48 H (0.66-1.25) mg/dL Glucose 107 H (74-99) mg/dL POC Glucose (mg/dL) (75-99) mg/dL Calcium 8.2 L (8.4-10.2) mg/dL Lactate Dehydrogenase 666 H (313-618) U/L C-Reactive Protein 6.2 H (<1.0) mg/dL Total Protein 4.7 L (6.3-8.2) g/dL Albumin 2.1 L (3.5-5.0) g/dL Crossmatch 07/03/21 07/03/21 07/03/21 Range/Units 05:42 05:45 11:36 WBC (3.8-10.6) k/uL RBC (4.30-5.90) m/uL Hgb (13.0-17.5) gm/dL Hct (39.0-53.0) % RDW (11.5-15.5) % Plt Count (150-450) k/uL Neutrophils # (Manual) (1.3-7.7) k/uL Lymphocytes # (Manual) (1.0-4.8) k/uL Metamyelocytes # (Man) (0) k/uL Myelocytes # (Manual) (0) k/uL Promyelocytes # (Man) (0) k/uL D-Dimer (<0.60) mg/L FEU ABG pH (7.35-7.45) ABG pCO2 (35-45) mmHg ABG pO2 (83-108) mmHg ABG HCO3 (21-25) mmol/L ABG O2 Saturation (94-97) % Sodium (137-145) mmol/L Carbon Dioxide (22-30) mmol/L BUN (9-20) mg/dL Creatinine (0.66-1.25) mg/dL Glucose (74-99) mg/dL POC Glucose (mg/dL) 107 H 103 H (75-99) mg/dL Calcium (8.4-10.2) mg/dL Lactate Dehydrogenase (313-618) U/L C-Reactive Protein (<1.0) mg/dL Total Protein (6.3-8.2) g/dL Albumin (3.5-5.0) g/dL Crossmatch See Detail Microbiology - Last 24 Hours (Table) 06/30/21 10:00 Gram Stain - Final Bronchoalviolar Lavage - Left Bronchial Washings Culture - Final Aspergillus not fumigatus
--- NOTE | 2021-07-03 15:01 | XR ---
EXAMINATION TYPE: XR chest 1V portable DATE OF EXAM: 07/03/2021 COMPARISON: NONE HISTORY: SOB, Follow Up FINDINGS: Indwelling tubes and catheters are unchanged. No change in diffuse reticulonodular infiltrates throughout both lung de la torre. Bilateral subcutaneous emphysema persists unchanged. Sizable pneumothorax not evident. Stable appearance of the cardio-mediastinal structures at this time. Pleural effusion unchanged. IMPRESSION: 1. No change in diffuse reticulonodular infiltrates throughout both lung de la torre. Bilateral subcutane ous emphysema persists unchanged. Sizable pneumothorax not evident. Clinical correlation and follow u p until resolution is recommended.
--- NOTE | 2021-07-03 17:33 | PN ---
PROGRESS NOTE DATE OF SERVICE: 07/03/2021 REASON FOR FOLLOWUP: Pneumonia. INTERVAL HISTORY: The patient is afebrile. The patient is hemodynamically stable. FiO2 is currently at 80%. No significant purulent secretions through the ET, diarrhea or any other changes reported by the nursing staff. PHYSICAL EXAMINATION: Blood pressure 113/54 with a pulse of 118, temperature 97.5. He is 93% on 80% FiO2. General description is an elderly male lying in bed in no distress. RESPIRATORY SYSTEM: Unlabored breathing. Decreased breath sounds at the bases. No wheeze. HEART: S1, S2. Regular rate and rhythm. ABDOMEN: Soft. No tenderness. LABS: Hemoglobin 6.9, white count .5, creatinine 3.48. DIAGNOSTIC IMPRESSION AND PLAN: Patient with acute respiratory failure which is multifactorial in this patient who did have initial component of COVID-19 pneumonia followed by Pseudomonas pneumonia, now with aspergillus in the sputum. Patient is currently being covered with voriconazole; to continue. Prognosis remains guarded. Continue supportive care. MMODL / IJN: [id number] /
[2021-07-03 18:27] LABS: Glucose,Whole Blood 104 mg/dL (75-99)
[2021-07-03 23:29] LABS: Glucose,Whole Blood 107 mg/dL (75-99)
[2021-07-04] MEDS: ARTIFICIAL TEARS-HYPROMELLOSE DROPS 15 ML BTL BOTH EYES SCH ×7 (00:27→23:14)
[2021-07-04] MEDS: SODIUM CHLORIDE 0.9% IVPB SCH ×2 (01:25→14:41)
[2021-07-04] MEDS: VORICONAZOLE IVPB SCH ×2 (01:25→14:41)
[2021-07-04] MEDS: CISATRACURIUM 200 MG in SODIUM CHLORIDE 0.9% 180 ML IV SCH ×3 (02:59→17:38)
[2021-07-04 03:27] LABS: C Reactive Protein 7.5 mg/dL (<1.0); Calcium 8.1 mg/dL (8.4-10.2); Potassium 4.1 mmol/L (3.5-5.1); Total Bilirubin 0.5 mg/dL (0.2-1.3); Total Protein 4.4 g/dL (6.3-8.2)
[2021-07-04 03:34] LABS: Anisocytosis Slight; HGB 7.1 gm/dL (13.0-17.5); Hypochromasia Slight; MCH 31.8 pg (25.0-35.0); MCHC 33.8 g/dL (31.0-37.0); Mean Platelet Volume 8.9; Platelet Count 475 k/uL (150-450); RBC 2.24 m/uL (4.30-5.90); RDW 16.1 % (11.5-15.5); WBC 20.9 k/uL (3.8-10.6)
[2021-07-04 03:35] LABS: Poikilocytosis Slight
[2021-07-04] MEDS: METOCLOPRAMIDE 5 MG/ML 2 ML VIAL IVP SCH ×3 (04:47→20:26)
[2021-07-04 05:36] LABS: ABG HCO3 24 mmol/L (21-25); ABG Oxygen Saturation 91.9 % (94-97); ABG PCO2 70 mmHg (35-45); ABG PO2 70 mmHg (83-108); ABG TCO2 26 mmol/L (19-24); Allen Test Performed? Yes
[2021-07-04 05:38] LABS: ABG PH 7.14 (7.35-7.45)
[2021-07-04 06:08] LABS: Glucose,Whole Blood 99 mg/dL (75-99)
[2021-07-04 06:08] LABS: Anisocytosis (M) Present; Band Neutrophils % 1 %; Lymphocytes # (M) 0.21 k/uL (1.0-4.8); Metamyelocytes # (M) 0.63 k/uL (0); Metamyelocytes % 3 %; Monocytes # (M) 0.42 k/uL (0-1.0); Myelocytes # (M) 0.21 k/uL (0); Myelocytes % 1 %; Neutrophils % (M) 92 %; Nucleated Red Blood Cells 0 /100 WBC (0-0); Polychromasia Present; Total Cells Counted 100
[2021-07-04] MEDS: ALBUTEROL HFA INHALER INHALATION SCH ×4 (07:15→20:31)
--- NOTE | 2021-07-04 07:47 | XR ---
EXAMINATION TYPE: XR chest 1V portable DATE OF EXAM: 07/04/2021 Comparison: 07/03/2021 Clinical History: 75-year-old male covid Findings: Tracheostomy cannula. NG tube sidehole remains at the GE junction. Consider further advancement into the stomach. Left subclavian CVC tip in the mid to lower SVC region. Heart upper limits of normal in size. Extensive bilateral subcutaneous emphysema persists but shows slight improvement. There may be some trace residual pneumomediastinum in the AP window region. Diffuse bilateral interstitial and pat bing opacities persist. There may be slight improvement. No definite pneumothorax. Impression: 1. Extensive bilateral subcutaneous emphysema shows slight improvement. There may be some minimal res idual pneumomediastinum on the left. 2. Diffuse interstitial and patchy airspace opacities persist but show slight improvement. 3. Consider advancing the NG tube so that the side hole enters the stomach.
[2021-07-04] MEDS: METOPROLOL TARTRATE 25 MG TAB PO SCH (08:01)
[2021-07-04] MEDS: CYANOCOBALAMIN 500 MCG TAB PO SCH (08:01)
[2021-07-04] MEDS: CHOLECALCIFEROL 25 MCG (1000 IU) TABLET PO SCH (08:01)
[2021-07-04] MEDS: AMIODARONE 200 MG TAB PO SCH ×2 (08:01→20:24)
[2021-07-04] MEDS: ASCORBIC ACID 500 MG TAB PO SCH (08:01)
[2021-07-04] MEDS: bisacodyL 10 MG SUPP RECTAL SCH (08:01)
[2021-07-04] MEDS: DEXAMETHASONE SOD PHOSPHATE 4 MG/ML 1 ML VIAL IV SCH (08:01)
[2021-07-04] MEDS: PANTOPRAZOLE 40 MG/10 ML VIAL IVP SCH ×2 (08:01→20:27)
[2021-07-04] MEDS: CALCIUM ACETATE 667 MG TAB PO SCH ×3 (08:01→17:33)
[2021-07-04] MEDS: ZINC SULFATE 220 MG CAP PO SCH (08:01)
[2021-07-04] MEDS: APIXABAN 2.5 MG TABLET PO SCH ×2 (08:01→20:27)
[2021-07-04] MEDS: CHLORHEXIDINE GLUCONATE 15 ML CUP MUCOUS MEM SCH ×2 (08:02→20:27)
[2021-07-04] MEDS: NOREPINEPHRINE 8 MG in SODIUM CHLORIDE 0.9% 250 ML IV SCH ×6 (08:58→22:29)
[2021-07-04] MEDS: SENNOSIDES-DOCUSATE SODIUM 1 EACH TAB PO SCH (08:58)
[2021-07-04] MEDS: fentaNYL (PF). 1,000 MCG in SODIUM CHLORIDE 0.9% 80 ML IV SCH (10:18)
[2021-07-04] MEDS: CLEVIDIPINE BUTYRATE 25 MG in EMPTY BAG 1 BAG IV SCH (10:22)
--- NOTE | 2021-07-04 11:56 | P.PN ---
Subjective Progress Note Date: 07/04/21 This is a 75-year-old male who was recently admitted with COVID-19 infection with acute hypoxic respiratory failure and is being closely monitored. Pulmonary following closely and patient is maintained on dexamethasone along with Lovenox and vitamin and zinc supplements. Patient currently maintained on 15 L high flow via nasal cannula with supplemental use of 15 L nonrebreather. Patient states his breathing is slightly improved and not requiring a nonrebreather as often. Instructed the patient to use incentive spirometer and increase activity as tolerated. Patient continues to be extremely weak and will have PT/OT evaluate the patient once more stable. 06/06/2021 Patient is seen in follow-up this morning states his shortness of breath has slightly worsened and his recovery time and working to breathe has become more difficult. Patient is continued on 15 L high flow along with nonrebreather intermittently and having to use it more frequently today he states. Incentive spirometer at the bedside and instructed the patient to continue to use at least 10 times every hour while awake and encouraged increased activity as tolerated. Patient states he walked to the bathroom with assistance and became extremely dyspneic. Patient is afebrile. D-dimer is 4.72 with a WBC of 16 and hemoglobin is stable at 15.4. Sodium is 138 with a potassium of 4.5 and current creatinine is 0.63. LDH is elevated at 2492 and CRP is 6.5. Chest x-ray today shows findings consistent with COVID-19 pneumonia with bilateral interstitial and airspace disease present. 06/07/2021 Patient is seen and evaluated in follow up this morning and is having increasing shortness of breath and on 15L high flow via NC and 15 L non-rebreather. Patient has been back in bed and attempting position changes frequently along with prone position. Patient continues on lovenox, baracitinib, vitamin and zinc supplement s,and steroids. Pulmonary following closely. 06/10/2021 Patient is seen in follow up this morning and is now maintained on airvo at 60% and continues to be extremely dyspneic with minimal exertion. Patient also continues with 15L Non rebreather as needed. Patient is maintained on lovenox along with baricitinib and IV steroids with pulmonary following. Patient states he has no reserve and taking longer periods of time to recover with attempting to position change or use the urinal. 06/11/2021 Patient is seen in follow-up and evaluated this morning and is continued on Airvo and maintaining oxygen saturations in the low 90s. Pulmonary following closely. Patient is afebrile. Patient is continued on vitamin and zinc supplements along with Baricitinib and subcutaneous Lovenox along with IV steroids and will continue. Patient's d-dimer today is elevated at 18.25 and will increase Lovenox to 50 subcu twice daily. White blood count today is 18.6 and hemoglobin is stable at 13.7, sodium is 139 with a potassium of 4.3 current creatinine is 0.7. Inflammatory markers are elevated with some trending down and CRP is 1.5, LDH is 1968 and alk phos is 168. Patient is afebrile. Patient continues to be extremely anxious and will continue Xanax as needed. Encouraged increase activity as tolerated and continued position changes with incentive spirometer use. 06/12/2021 Patient is seen in follow-up this morning with no acute issues noted overnight. Patient continues on Airvo with a flow rate of 55 and FiO2 of 80% maintaining oxygen saturations above 90%. Pulmonary following closely and we'll continue to wean as tolerated. Patient continues on Lovenox twice daily along with vitamin and zinc supplements and continued on IV steroids along with albuterol and Baricitinib. White blood count is 23.7 with a hemoglobin of 14.1, sodium is 139 with a potassium of 4.4 and current creatinine is 0.62. Will repeat chest x-ray along with inflammatory markers in the morning. 06/13/2021 Patient is seen and evaluated in follow-up as morning and continues to be on Airvo. Patient appears to be more raspy with some sputum and congested today with a hoarse voice. Infectious disease and pulmonary following closely. Sputum culture from 06/02 just today preliminary showing gram-negative bacilli along with Essence albicans and patient is being started on IV cefepime with repeat sputum culture ordered along with oral Diflucan. White blood count is 23.5 with hemoglobin of 13.8, sodium is 137 and potassium is 5.5 and current creatinine is 0.55. LFTs are mildly elevated. Repeat d-dimer along with CRP and LDH have been ordered. Will repeat a.m. labs. Chest x-ray today shows con tinued peripheral and lower lung interstitial infiltrates of Covid pneumonia without significant change. 06/14/2021 Patient is seen and evaluated in follow-up this morning continues to be dyspneic and requesting to go to the bed as he has been sitting up in the chair all day. Patient has been started on Diflucan along with IV cefepime and sputum culture from 06/02/2021 resulted showing Pseudomonas aeruginosa along with Essence albicans. Infectious disease is following closely. Patient is completing Baricitinib and will be transitioned to oral prednisone taper with pulmonary following closely. Patient has been started on eliquis. D-dimer today has trended down to 11.02, LDH is 2178, CRP is 3.2, liver functions trending down. White blood count slightly trending down at 20.2 and hemoglobin is stable at 13.7, sodium is 136 with a potassium of 4.3 and current creatinine is 0.57. Continues to have a mildly raspy voice with some throat dryness and will add Cepacol. 06/15/2021 Patient evaluated in bed and is resting on the BiPAP in the intensive care unit, he had desaturated this morning will be moved to the bathroom and initially was on a 15L HF, however is now requiring BiPAP. Patient was started on a Precedex drip. Repeat chest x-ray today which revealed persistent multifocal and confluent bilateral reticulonodular opacities is consistent with known coronary infection more prominent in the lower lungs. Patient finished a course of therapy with Baricitinib and transitioned to oral prednisone. Labs reviewed today include a white blood cell count 21.2, hemoglobin of 12.5. Blood gases show a pO2 of 32 and O2 saturation of 50.3. Chloride is 110, CO2 20, sodium 137, potassium 4. LDH is worse today at 2277, alk phos 158, CRP is trending upwards of 4.6. Patient has remained afebrile, heart rate is now 83, respirations 32, blood pressure 124/68. Oxygen saturation is maintaining in the mid to high 80s on 100% BiPAP. Patient is nothing by mouth and oral medications are unable to be given. Patient is on IV cefepime for a sputum culture positive for Pseudomonas. He is IV Diflucan for oral candidiasis that was improving as of yesterday. 06/16/2021 Patient is evaluated in the intensive care unit, he is status post intubation and has NG tube in place. Labs reviewed today included white blood cell, 44.2, d-dimer greater than 34. ABGs from the A-line included a pH of 7.15, pCO2 of 71, total CO2 is 27 and oxygen saturation of 98. Bicarb is 25 and his pO2 is 107. Additional labs include a serum potassium 5.1, chloride of 109, BUN of 27, creatinine 1.06. Vital signs include a heart rate of 123 tachycardia, respiratory rate of 36, blood pressure 100/50, he is 98% oxygen saturation. Patient is on vasopressors for his blood pressure. Repeat blood cultures are negative. Patient is receiving propofol for sedation. His chest x-ray was reviewed which is showing bilateral pulmonary infiltrates demonstrating COVID- 19 pneumonia with ARDS. Patient is still getting IV cefepime for a sputum culture Pseudomonas although his pro calcitonin level is 0.03 which is not usually indicative of a bacterial infection. Additional inflammatory markers remain elevated. Patient did receive 2 L saline bolus. Repeat labs in the morning, prognosis is guarded for this patient. 06/17/2021 Patient is seen in follow-up continues to be monitored closely in the ICU with multiple medical consultations following. Prognosis is extremely guarded. Patient's respiratory status significantly worsened requiring mechanical ventilation and intubation and currently patient is sedated. White blood count is worsened at 26.1 and hemoglobin is 12.2, d-dimer is 27.06, ABG is 7.16 pH with a pCO2 of 57 and a pO2 of 68 and bicarb is 20, sodium is 140 with a potassium of 5.0 and current creatinine has worsened at 2.29 pro calcitonin is 24.40. Infectious disease along with pulmonary environmental control administrator following closely. Patient continues on cefepime along with eliquis, vitamin and zinc supplements and patient has finished Baricitinib. Patient was on oral Decadron and is being transitioned back to IV dexamethasone along with Diflucan. Patient was given a dose of IV Lasix and nephrology has been consulted. Cardiology consulted as well and patient is currently on amiodarone drip along with Cleviprex and currently sedated on propofol. Patient also has norepinephrine drip as well. Patient being started on sodium bicarb drip. Patient also has low-grade fevers. 06/18/2021 Patient is seen in follow up in the ICU and maintained on mechanical vent intubated and sedated. Patient continues on NImbex, sodium bicarb, amiodarone, and being started on fentanyl as IV lasix drip with multiple medical consultations following. Kidney functions continue to deteriorate with nephrology following closely. Discussion being had about possible hemodialysis if kidney functions continue to worsen. Creatinine currently 3.69 today. 06/19/2021 Patient remains on mechanical vent with minimal urine output note and extensive volume overload with worsening kidney functions and would like to proceed with hemodialysis catheter placement with nephrology following closely. Multiple consultations following and Dr. Mann consulted for hemodialysis catheter placement and will hold eliquis. Amiodarone being transitioned to oral with cardiology following closely. Continue close monitoring in the ICU. Overall Prognosis remains extremely poor and guarded. 06/20/2021 Patient is seen and evaluated in follow-up continue to be closely monitored with multiple medical consultations following in the ICU. Patient remains intubated on mechanical ventilation and sedated. Kidney functions continue to worsen and patient is an extensive volume overload and has received dialysis catheter today and will initiate hemodialysis. Patient was maintained on IV Lasix drip which is being transitioned to IV push Lasix twice daily with nephrology following closely. Patient also continues on IV cefepime along with dexamethasone, vitamin and zinc supplements and continues on eliquis as well. White blood count 11.9 and hemoglobin is 9.6, platelets are 61 and d-dimer is 8.40. Sodium is 135 with a potassium of 5.0 and current BUN is 99 with a creatinine of 5.23. LDH is 1015 and pro calcitonin is 13.10. Prognosis remains extremely guarded. 06/21/2021 Patient is evaluated in follow up this morning and continues to be monitored closely in the ICU. On mechanical vent with an FI02 of 50%. Currently receiving hemodialysis and will likely require daily treatments if tolerated for extensive overload. Patient continues on IV lasix twice daily along with Nimbex, propofol, and fentanyl. Chest xray done today. Patient continues on IV cefepime with most recent repeat sputum culture revealing no growth. Infectious disease following closely. 06/22/2021 Patient remains intubated in the ICU, on ventilatory before meals settings, tidal volume 450, 50% FiO2, PEEP of 16, saturating 80%. ABG showing pO2 66, pCO2 42, pH 7.32, he was dialyzed for 2-1/2 L removed., He is making urine He remains sedated with propofol and he is paralyzed with Nimbex. His sputum is growing pseudomonas receiving antimicrobial therapy of cefepime, ID is following. No fever this morning, blood pressure 09/26/1939/50. Chest x-ray showing extensive bilateral airspace disease, correlate for pneumonia or ARDS. In atrial fibrillation with controlled ventricular rate 06/23/2021 Patient remains intubated on ventilatory support in the ICU, currently on assist control, 55% FiO2, PEEP of 14, TG 450. ABG this morning showing pH 7.31, pCO2 43, pO2 54, bicarb 22. O2 saturations marginal 90-91%, blood pressure stable. He remains in atrial fibrillation, with controlled ventricular rate, antic oagulated with Eliquis. Labs today show sodium 135, creatinine 4.18, WBC 12.7, hemoglobin 8.3 platelets 40. He is on IV Lasix, low urine output 270 ml yesterday Continue systemic steroids of Decadron 6 daily, eyes receiving antimicrobial therapy with cefepime, and fluconazole. sedated with fentanyl. 06/24/2021 Patient is seen and evaluated continues to be closely monitored in the ICU. Patient is currently receiving hemodialysis with an attempt of 2 L removal as the goal is 3 although patient's blood pressure is not tolerating. Nephrology and pulmonary environmental control administrator following closely. General surgery has been consulted for possible PEG and trach tube placement. Patient continues on Cleviprex along with fentanyl and propofol, IV dexamethasone, vitamin and zinc supplements, scheduled Reglan and IV cefepime. No reported bowel movements and patient not tolerating tube feeds with a large amount of residual noted in the NG. Chest x- ray today shows interval development of pneumomediastinum is suspected with arts and progression of subcutaneous emphysema. 06/25/2021 Patient is seen this morning in follow-up continues to be closely monitored in the ICU with multiple medical consultations following. Patient did not receive hemodialysis today and plan is scheduled for tomorrow with nephrology following closely. Eliquis remains on hold as general surgery plans for tracheostomy and PEG tube placement tomorrow. Patient continues to have no bowel movement and have ordered fleets enema and will continue with bowel regimen. Chest x-ray today shows continued extensive overlying subcutaneous emphysema with pneumomediastinum and bilateral compliant reticulonodular opacities related to COVID-19 infection again noted with no significant change from previous. Patient is maintained on IV cefepime along with Cleviprex, IV dexamethasone, fentanyl and propofol, scheduled Reglan and is also being started on sodium bicarb. 06/26/2021 Patient is seen and evaluated this morning continues to be on mechanical vent and intubated and sedated being closely monitored in the ICU. Multiple medical consultations following including general surgery and plan is for tracheostomy and PEG tube placement today. Eliquis has been on hold along with tube feeds and will discuss with surgery about initiating tube feeds and resuming anticoagulant. Per nursing staff patient had small amount of blood noted at the NG tube along with patient having a bowel movement with blood noted and hemoglo bin today is 7.9, platelets are 66. Patient also continues on IV cefepime along with IV dexamethasone, vitamin and zinc supplements and will continue. Patient maintained on Cleviprex along with fentanyl and propofol. Patient is scheduled to receive dialysis today with nephrology following closely. Chest x-ray today personally reviewed by me shows possible interval development of right-sided pn eumothorax although pneumothorax evaluation is limited due to extensive subcutaneous emphysema present bilaterally along with worsening right lower lobe consolidation, diffuse bilateral infiltrates. Pulmonary environmental control administrator is following closely. 06/27/2021 Patient is seen and evaluated in follow-up today status post receiving tracheostomy and continues to be sedated on the vent and currently receiving hemodialysis today. Patient continues to be closely monitored in the ICU with multiple medical consultations following. Patient continues to have extensive swelling and edema with noted subcutaneous emphysema that continues to worsen. PEG tube was also attempted by surgery and unsuccessful given the abdominal wall thickening and extensive edema noted. NG tube to be replaced and will continue tube feedings via NG. Patient did receive hemodialysis yesterday and able to tolerate approximately 2-2-1/2 L although blood pressure continued to drop and will continue with 2 L per nephrology. Patient continues on IV cefepime along with Nimbex, IV dexamethasone, fentanyl and propofol. Patient also continues on vitamin and zinc supplements and Eliquis has been resumed. 06/28/2021 Patient is evaluated this morning and continues to be in the ICU being closely monitored. Multiple medical consultations following including nephrology. Patient has been receiving daily hemodialysis as he continues to have extensive volume overload and edema noted throughout including the scrotum. Facial s ubcutaneous emphysema has worsened and continues to show on chest xray. Patient is also having some nasal bleeding and eliquis has been placed on hold. Blood pressure is elevated and will start Cleviprex. Patient continues on IV cefepime as well. 07/01/2021 Patient continues to be in the ICU on mechanical vent via trach and sedated. Multiple medical consultations following and patient is receiving daily hemodialysis with nephrology following closely. chest xray today shows no significant changes from previous exam. Patient is status post bronchoscopy and cultures pending. Patient is continued on cefepime and antifungals with ID following closely. Prognosis remains quite guarded. 07/02/2021 Patient is seen and evaluated continues to be closely monitored in the ICU with multiple medical consultations following. Patient is receiving daily dialysis for extensive volume overload with nephrology following closely. Pulmonary environmental control administrator following closely as well along with surgery and patient continues to be intubated and sedated on vent via tracheostomy. Patient anticoagulant was on hold as patient was having extensive bleeding from the nasal passage with no further bleeding noted at this time and will attempt to resume Eliquis with close monitoring. Patient also continues on IV cefepime along with antifungal voriconazole with infectious disease following closely. Patient recently underwent bronchoscopy with BAL with pulmonary and awaiting for cultures are finalized. 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 Chest x-ray today shows very limited exam due to severe bilateral subcutaneous emphysema. Persistent mild pneumomediastinum is suspected with continued diffuse bilateral interstitial and airspace disease that may have slight improvement on the left, NG tube possibly needing advancement further into the stomach. 07/03/2021 Patient is seen and evaluated in follow-up this morning continues to be in the ICU in critical condition. Multiple medical consultations following including nephrology and pulmonary. Infectious disease also following and patient is maintained on voriconazole and cefepime has been discontinued. Patient continues to be sedated on propofol and fentanyl and is on norepinephrine for low blood pressure. Patient being given some sodium bicarb with dialysis today. Patient has been receiving daily dialysis as he continues to be in volume overload. Eliquis has been resumed with no obvious bleeding noted although hemoglobin found to be 6.8 today and receiving a unit of PRBC. She also continues on IV dexamethasone at 4 mg daily along with vitamin and zinc supplements and will continue. 07/04/2021 Patient is seen this morning continues to be closely monitored in the ICU. Patient receiving hemodialysis and currently with ultrafiltration only as blood pressure not tolerating and nursing staff working on increasing Levophed during dialysis. Patient's generalized edema and swelling of the face and neck have slightly improved although continues to be overloaded. patient has been receiving daily hemodialysis as tolerated. patient continues with NG tube with tube feedings and dietitian following closely and per nursing staff residuals have been high and last documented bowel movement was on 06/30. Will add daily enemas. dietitian recommending possible TPN and will discuss with environmental control administrator. Eliquis has been resumed with no episodes of bleeding. chest x-ray showing extensive bilateral subcutaneous emphysema showing slight improvement with some possible minimal residual pneumomediastinum on the left. Diffuse bilateral interstitial and patchy airspace disease persists showing slight improvement, and consider advancing NG tube. Labs: Sodium is 134, potassium is 4.1, BUN 46, creatinine is 2.88, WBC 20.9, h emoglobin is 7.1, platelets 475, ldh 699, crp 7.5, d dimer 4.55, ABG pH is 7.14 with a pCO2 of 70, pO2 is 70, bicarb is 24, total CO2 is 26 and O2 saturation is 91.9 Review of systems: Unable to complete a full review of symptoms as patient is sedated and on a ventilator via recent tracheostomy placement. Active Medications Acetaminophen (Acetaminophen Tab 325 Mg Tab) 650 mg PO Q6HR PRN PRN Reason: Fever and/ or Mild Pain Last Admin: 06/14/21 22:22 Dose: 650 mg Documented by: Albuterol Sulfate (Albuterol Hfa Inhaler) 2 puff INHALATION RT-QID COUNTS INCLUDE 234 BEDS AT THE [facility] Last Admin: 07/04/21 11:24 Dose: 2 puff Documented by: Albuterol Sulfate (Albuterol Hfa Inhaler) 2 puff INHALATION RT-QID PRN PRN Reason: Shortness Of Breath Or Wheezing Last Admin: 06/15/21 03:30 Dose: 2 puff Documented by: Amiodarone HCl (Amiodarone 200 Mg Tab) 200 mg PO BID COUNTS INCLUDE 234 BEDS AT THE [facility] Last Admin: 07/04/21 08:01 Dose: 200 mg Documented by: Apixaban (Apixaban 2.5 Mg Tablet) 2.5 mg PO BID COUNTS INCLUDE 234 BEDS AT THE [facility]; Protocol Last Admin: 07/04/21 08:01 Dose: 2.5 mg Documented by: Artificial Tears (Artificial Tears-Hypromellose Drops 15 Ml Btl) 2 drops BOTH EYES Q4HR COUNTS INCLUDE 234 BEDS AT THE [facility] Last Admin: 07/04/21 08:02 Dose: 2 drops Documented by: Ascorbic Acid (Ascorbic Acid 500 Mg Tab) 500 mg PO DAILY ALVARO Last Admin: 07/04/21 08:01 Dose: 500 mg Documented by: Bisacodyl (Bisacodyl 10 Mg Supp) 10 mg RECTAL DAILY COUNTS INCLUDE 234 BEDS AT THE [facility] Last Admin: 07/04/21 08:01 Dose: 10 mg Documented by: Calcium Acetate (Calcium Acetate 667 Mg Tab) 667 mg PO TID-W/MEALS ALVARO Last Admin: 07/04/21 08:01 Dose: 667 mg Documented by: Chlorhexidine Gluconate (Chlorhexidine Gluconate 15 Ml Cup) 15 ml MUCOUS MEM BID COUNTS INCLUDE 234 BEDS AT THE [facility] Last Admin: 07/04/21 08:02 Dose: 15 ml Documented by: Cholecalciferol (Cholecalciferol 25 Mcg (1000 Iu) Tablet) 25 mcg PO DAILY COUNTS INCLUDE 234 BEDS AT THE [facility] Last Admin: 07/04/21 08:01 Dose: 25 mcg Documented by: Cyanocobalamin (Cyanocobalamin 500 Mcg Tab) 1,000 mcg PO DAILY ALVARO Last Admin: 07/04/21 08:01 Dose: 1,000 mcg Documented by: Darbepoetin Shalom (Darbepoetin Shalom 40 Mcg/0.4 Ml Syringe) 40 mcg SQ Q7D COUNTS INCLUDE 234 BEDS AT THE [facility] Last Admin: 06/27/21 12:57 Dose: 40 mcg Documented by: Dexamethasone Sodium Phosphate (Dexamethasone Sod Phosphate 4 Mg/Ml 1 Ml Vial) 4 mg IV DAILY COUNTS INCLUDE 234 BEDS AT THE [facility] Last Admin: 07/04/21 08:01 Dose: 4 mg Documented by: Propofol 1,000 mg/ IV Solution 100 mls @ 0 mls/hr IV .Q0M ALVARO; Protocol Last Admin: 07/04/21 10:56 Dose: 45 mcg/kg/min, 32.238 mls/hr Documented by: Norepinephrine Bitartrate 8 mg (/ Sodium Chloride) 258 mls @ 9.482 mls/hr IV .Q24H ALVARO; Protocol Last Titration: 07/04/21 10:18 Dose: 0.2 mcg/kg/min, 37.926 mls/hr Documented by: Cisatracurium Besylate 200 mg/ (Sodium Chloride) 200 mls @ 5.88 mls/hr IV .Q24H ALVARO; Protocol Last Admin: 07/04/21 10:20 Dose: 2 mcg/kg/min, 11.76 mls/hr Documented by: Fentanyl Citrate 1,000 mcg/ (Sodium Chloride) 100 mls @ 2.765 mls/hr IV .Q24H COUNTS INCLUDE 234 BEDS AT THE [facility]; Protocol Last Admin: 07/04/21 10:18 Dose: 0.6 mcg/kg/hr, 6.636 mls/hr Documented by: Clevidipine 25 mg/ IV Solution 50 mls @ 2 mls/hr IV .Q24H [facility]; Protocol Last Admin: 07/04/21 10:22 Dose: Not Given Documented by: Voriconazole 300 mg/ Sodium (Chloride) 100 mls @ 125 mls/hr IVPB Q12H [facility] Last Admin: 07/04/21 01:25 Dose: 125 mls/hr Documented by: Metoclopramide HCl (Metoclopramide 5 Mg/Ml 2 Ml Vial) 5 mg IVP Q8H [facility] Last Admin: 07/04/21 04:47 Dose: 5 mg Documented by: Metoprolol Tartrate (Metoprolol Tartrate 25 Mg Tab) 25 mg PO DAILY COUNTS INCLUDE 234 BEDS AT THE [facility] Last Admin: 07/04/21 08:01 Dose: 25 mg Documented by: Pantoprazole Sodium (Pantoprazole 40 Mg/10 Ml Vial) 40 mg IVP BID COUNTS INCLUDE 234 BEDS AT THE [facility] Last Admin: 07/04/21 08:01 Dose: 40 mg Documented by: Senna/Docusate Sodium (Sennosides-Docusate Sodium 1 Each Tab) 1 each PO DAILY COUNTS INCLUDE 234 BEDS AT THE [facility] Last Admin: 07/04/21 08:58 Dose: 1 each Documented by: Zinc Sulfate (Zinc Sulfate 220 Mg Cap) 220 mg PO DAILY COUNTS INCLUDE 234 BEDS AT THE [facility] Last Admin: 07/04/21 08:01 Dose: 220 mg Documented by: Physical exam: Gen: This is a 75-year-old male sedated and intubated on propofol and mechanical ventilation. Extensive edema and swelling noted throughout with some mild improvement of swelling noted on the face. Temp Is 97.8 F axillary, pulse is 99, respirations are 36, blood pressure is 119/50 arterial, oxygen saturation is 88% on mechanical vent with an FiO2 of 80% HEENT: Head is atraumatic, normocephalic. Pupils equal, round. Sclerae is anicteric. NG tube noted NECK: Supple. No JVD. No lymphadenopathy. No thyromegaly. Extensive subcutaneous emphysema of the face and neck traveling down the arms and continues in the chest that is slightly improved LUNGS: Diminished breath sounds bilaterally with scattered coarse rhonchi and crackles noted at the bases. Extensive subcutaneous emphysema persists HEART: Irregular S1, S2 are muffled ABDOMEN: Soft. Edematous. obese. Hypoactive Bowel sounds are sluggish. No masses. No guarding or rigidity noted. EXTREMITIES: Extensive pitting edema noted of upper and lower bilateral extremities and much of the body. 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 Extensive Subcutaneous emphysema with pneumomediastinum as noted on x-ray acute renal failure likely ATN with worsening kidney functions and minimal urine output requiring hemodialysis volume overload secondary to ARF metabolic acidosis afib with RVR currently rate controlled on oral amiodarone and metoprolol Lactic acidosis secondary to above Initial sputum culture showing Essence albicans and pseudomonas aeruginosa and maintained on IV cefepime repeat sputum culture showing aspergillus not fumigatus Oral candidiasis, sputum cultures from 06/02/2021 Essence albicans Extensive interstitial bilateral COVID-19 pneumonia Elevated white blood count possibly secondary to above Possible subsegmental pulmonary embolism ruled out History of atrial fibrillation Anxiety Remote history of nicotine dependence GI prophylaxis: Protonix DVT prophylaxis: On eliquis Full code Plan: Recommend to continue with current medications and continue to closely monitor in the ICU. Patient remains on mechanical ventilation and intubated. Patient received tracheostomy placement with surgery. Patient continues with tube feeds via NG tube and will continue tube feeds via NG tube. patient with continued residuals of tube feedings and will discuss with surgery and environmental control administrator about possible TPN. No reported bowel movement since 06/30/2021 and will add daily enemas. Patient continues on antifungals and IV cefepime has been discontinued with ID following closely as well. repeat sputum culture showing aspergillus not fumigatus with pseudomonas. Patient continues on vitamin and zinc supplements IV dexamethasone at 4 mg daily and will continue. Patient has completed Baricitinib. Patient with extensive volume overload and has been receiving daily hemodialysis with nephrology following closely. patient's blood pressures have been on the lower side and continuing on Levophed and performing ultrafiltration mostly with daily dialysis. ABG as noted above. status post bronchial washing awaiting cultures. No further bleeding noted from the NG and have resumed eliquis and monitor closely for any bleeding. Will repeat a.m. labs. Hemoglobin 7.1 today after receiving a unit of PRBC yesterday. Prognosis is extremely poor and guarded and will continue to monitor closely. Family wishes to proceed with full code measures. Objective - Vital Signs Vital signs: Vital Signs Temp 97.6 F 07/04/21 00:21 Pulse 108 H 07/04/21 06:00 Resp 36 H 07/04/21 06:00 BP 117/54 07/03/21 15:06 Pulse Ox 87 L 07/04/21 06:00 Intake & Output 07/03/21 07/04/21 07/04/21 18:59 06:59 18:59 Intake Total 8781.074 2748.577 100 Output Total 2500 Balance -935.887 4131.577 100 Weight 119.4 kg 120.4 kg Intake: IV 276 299 0.9 240 260 Pressure bag 36 39 Intake, IV Titration 961.692 778.577 100 Amount Cisatracurium 200 mg In 115.444 200 Sodium Chloride 0.9% 180 ml @ 1 MCG/KG/MIN 5.88 mls/hr IV .Q24H [facility] Rx#: [id number] Norepinephrine 8 mg In 356.441 237.924 Sodium Chloride 0.9% 250 ml @ 0.05 MCG/KG/MIN 9. 482 mls/hr IV .Q24H [facility] Rx#:[id number] fentaNYL (PF). 1,000 mcg 89.807 In Sodium Chloride 0.9% 80 ml @ 0.25 MCG/KG/HR 2. 765 mls/hr IV .Q24H [facility] Rx#:[id number] propofoL 1,000 mg In 400.000 340.653 100 Empty Bag 1 bag @ Titrate IV .Q0M [facility] Rx#: [id number] Tube Feeding 60 120 Blood Product 310 Rc As-1 Unit 310 [id number] Other 90 60 Output: Urine 0 Hemodialysis 2500 Other: Voiding Method Indwelling Catheter Indwelling Catheter ABP, PAP, CO, CI - Last Documented Arterial Blood Pressure 116/51 - Labs CBC & Chem 7: 07/04/21 02:55 07/04/21 02:55 Labs: Abnormal Lab Results - Last 24 Hours (Table) 07/03/21 07/03/21 07/03/21 Range/Units 05:45 11:36 18:25 WBC (3.8-10.6) k/uL RBC (4.30-5.90) m/uL Hgb (13.0-17.5) gm/dL Hct (39.0-53.0) % RDW (11.5-15.5) % Plt Count (150-450) k/uL Neutrophils # (Manual) (1.3-7.7) k/uL Lymphocytes # (Manual) (1.0-4.8) k/uL Metamyelocytes # (Man) (0) k/uL Myelocytes # (Manual) (0) k/uL D-Dimer (<0.60) mg/L FEU ABG pH (7.35-7.45) ABG pCO2 (35-45) mmHg ABG pO2 (83-108) mmHg ABG Total CO2 (19-24) mmol/L ABG O2 Saturation (94-97) % Sodium (137-145) mmol/L BUN (9-20) mg/dL Creatinine (0.66-1.25) mg/dL POC Glucose (mg/dL) 103 H 104 H (75-99) mg/dL Calcium (8.4-10.2) mg/dL Lactate Dehydrogenase (313-618) U/L C-Reactive Protein (<1.0) mg/dL Total Protein (6.3-8.2) g/dL Albumin (3.5-5.0) g/dL Crossmatch See Detail 07/03/21 07/04/21 07/04/21 Range/Units 23:15 02:55 02:55 WBC 20.9 H (3.8-10.6) k/uL RBC 2.24 L (4.30-5.90) m/uL Hgb 7.1 L (13.0-17.5) gm/dL Hct 21.0 L (39.0-53.0) % RDW 16.1 H (11.5-15.5) % Plt Count 475 H (150-450) k/uL Neutrophils # (Manual) 19.40 H (1.3-7.7) k/uL Lymphocytes # (Manual) 0.21 L (1.0-4.8) k/uL Metamyelocytes # (Man) 0.63 H (0) k/uL Myelocytes # (Manual) 0.21 H (0) k/uL D-Dimer 4.55 H (<0.60) mg/L FEU ABG pH (7.35-7.45) ABG pCO2 (35-45) mmHg ABG pO2 (83-108) mmHg ABG Total CO2 (19-24) mmol/L ABG O2 Saturation (94-97) % Sodium (137-145) mmol/L BUN (9-20) mg/dL Creatinine (0.66-1.25) mg/dL POC Glucose (mg/dL) 107 H (75-99) mg/dL Calcium (8.4-10.2) mg/dL Lactate Dehydrogenase (313-618) U/L C-Reactive Protein (<1.0) mg/dL Total Protein (6.3-8.2) g/dL Albumin (3.5-5.0) g/dL Crossmatch 07/04/21 07/04/21 Range/Units 02:55 05:30 WBC (3.8-10.6) k/uL RBC (4.30-5.90) m/uL Hgb (13.0-17.5) gm/dL Hct (39.0-53.0) % RDW (11.5-15.5) % Plt Count (150-450) k/uL Neutrophils # (Manual) (1.3-7.7) k/uL Lymphocytes # (Manual) (1.0-4.8) k/uL Metamyelocytes # (Man) (0) k/uL Myelocytes # (Manual) (0) k/uL D-Dimer (<0.60) mg/L FEU ABG pH 7.14 L* (7.35-7.45) ABG pCO2 70 H (35-45) mmHg ABG pO2 70 L (83-108) mmHg ABG Total CO2 26 H (19-24) mmol/L ABG O2 Saturation 91.9 L (94-97) % Sodium 134 L (137-145) mmol/L BUN 46 H (9-20) mg/dL Creatinine 2.88 H (0.66-1.25) mg/dL POC Glucose (mg/dL) (75-99) mg/dL Calcium 8.1 L (8.4-10.2) mg/dL Lactate Dehydrogenase 699 H (313-618) U/L C-Reactive Protein 7.5 H (<1.0) mg/dL Total Protein 4.4 L (6.3-8.2) g/dL Albumin 2.0 L (3.5-5.0) g/dL Crossmatch
[2021-07-04] MEDS ORDERED: SODIUM BICARB 8.4% 50 ML SYR (1 MEQ/ML) IV STA ×2 (12:10→15:01)
--- NOTE | 2021-07-04 12:34 | P.PN ---
Subjective Progress Note Date: 07/04/21, the patient remains in the intensive care units. This is a case of a COVID 19 related pneumonia with respiratory failure, intubated on mechanical ventilator. The patient is being seen for a follow-up. Remains sedated, paralyzed, intubated on mechanical ventilator and the patient remains on assist control mode at the rate of 36, tidal volume of 400, FiO2 of 70% with a PEEP of 14. The peak airway pressures are at 40. The static pressure is 33. The blood gases from today shows a pH of 7.15 with a pCO2 of 66 and pO2 of 84. Chest x- ray continues to show extensive bilateral pulmonary interstitial and alveolar infiltrates without any significant change. There is subcutaneous air and mediastinal air as noted. No cardiomegaly. No evidence of any pneumothorax. The patient has a number #8 Bivona tracheostomy tube in place. The patient remains on the mechanical ventilator. The patient had initial on 06/02/2021 that showed pseudomonas aeruginosa and Essence. Subsequently, the repeat cultures from 06/22/2021 was positive for Aspergillus, subsequent bronchoscopy was done on 06/30/2021 and the repeat cultures still pending for now. Meanwhile, the patient is covered with a combination of IV cefepime and voriconazole. Remains on Decadron 4 mg IV every 24 hours. The patient's course was also complicated by development of an acute kidney injury related to the COVID-19 related pneumonia. The patient was requiring daily hemodialysis. He had dialysis and 06/29/2021 with a total of 2 L of fluid was removed. The dialysis was done on 06/30/2021. Blood pressure remains on the higher side and the patient is currently on Cleviprex for blood pressure control. He continues to have significant amount of edema in his upper and lower extremities in addition to that the patient has scrotal edema. On examination, there is extensive subcutaneous emphysema in the face, neck, chest and upper extremity. Abdomen is distended soft. The patient remains sedated with propofol running at 50 mics of respiratory per minute and fentanyl at 0.6 mcg/kg per minute. The patient remains paralyzed with Nimbex at 3 mcg/kg per minute. Patient's is currently receiving enteral feeding for nutritional support with vital high protein at the rate of 30 mL an hour. Clinically, the patient continues to have extensive subcutaneous emphysema involving the face, neck, chest and upper extre mities. He has an NG tube in place. I reviewed a bronchoscopy images and the patient has extensive necrosis involving the airways mainly involving the right lung at the level of the right mainstem bronchus and bronchus intermedius. Highly suspicious for Aspergillus infection. Patient remains on voriconazole. 07/02/2021, the patient is being seen for a follow-up. Remains on a mechanical ventilator. He is a case of COVID-19 related pneumonia complicated by ARDS, extensive pneumomediastinum and subcutaneous emphysema without pneumothorax. This morning, he remains sedated and paralyzed. He is on propofol running at 50 mcg/kg per minute and the patient is also paralyzed with Nimbex at 3 mg/kg per minute. He is also on fentanyl at 0.6 mitral respiratory kilogram per hour. On a mechanical ventilator, his peak airway pressure is ranging between 41 and 44. His static airway pressure is 41. His airway pressures are slightly higher compared to yesterday. His blood gases from today shows a pH of 7.11 with a pCO2 of 68 and pO2 of 88. Terms of secretions, history secretions are scant. Nevertheless, the most recent bronchoalveolar lavage that was done showed positive Aspergillus species and we do suspect highly and Aspergillus infection knowing that there was extensive necrosis and blackening of the airway especially on the right along the right mainstem bronchus and there was excess amount of debris's identified and a previous bronchoscopy that was done by my partner. The patient remains on voriconazole. The patient remains also on IV cefepime. He does have extensive subcutaneous emphysema and the amount of emphysema is unchanged compared to yesterday. His face, neck, chest and upper extremities are extensively swollen. On today's evaluation, his tracheostomy tu be is in place and the patient has a #8 Bivona tracheostomy tube in place. He is returning his volumes adequately. No evidence of any leak around the tracheostomy tube. Hemodynamically, he was slightly hypotensive yesterday and the patient was started on norepinephrine infusion and currently is on norepinephrine running at 0.06 mcg/kg per minute. He remains on Decadron and the dose was reduced to 4 mg IV every 24 hours. He is receiving daily hemodialysis. He last had dialysis yesterday with a total of 2 L of fluid was removed. He is receiving enteral feeding for nutritional support. He has an NG tube in place. He is currently on vitamin HP at the rate of 20 mL an hour. Note that the patient is on no anticoagulation. He was having epistaxis earlier and his nostrils are intact bilaterally. He was taken off anticoagulants. 07/03/2021 the patient is being seen for a follow-up. Critically ill male patient with COVID-19 pneumonia, complicated by further infection with gram-nega tive pseudomonas and subsequently Aspergillus species with secondary ARDS and prolonged respiratory failure with has a tracheostomy tube in place. His course was further comfort. By normal mediastinum and extensive subcutaneous emphysema without pneumothorax. The patient has remained sedated and paralyzed throughout this week and the patient remains on propofol which is currently running at 40 g kilogram per minute. He is also paralyzed with Nimbex at 2 mcg/kg/m. Fentanyl is still running at 0.6 mcg/kg/h. He is synchronous with the mechanical ventilator. Clinically, his subcutaneous emphysema is improved. Chest x-ray also showed improvement in the subcutaneous air under the skin, ho wever, he does have still diffuse breath and pulmonary infiltrates consistent with ARDS. While on a mechanical ventilator, his peak airway pressures around 38, static airway pressure is 35. He has a #8 Bivona tracheostomy tube in place. Blood gases showed a pH of 7.07 with a pCO2 of 66 and pO2 of 81. This is a combination of respiratory and metabolic acidosis. His serum bicarbonate has dropped down to 16. Furthermore, the patient is undergoing daily hemodialysis. Urine output is minimal at this point in time. He remains on pressors probably due to underlying sepsis. On epinephrine infusion is running at 0.14 mcg/kg per minute. The patient is currently in a A. fib rhythm, controlled rate, Eliquis and started at a low dose of 2.5 mg twice a day without evidence of any bleeding. His hemoglobin drifted gradually down to 6.8 from this day and the patient will be transfused with a unit of packed RBC. He is receiving vital high protein for enteral feeding and nutritional support at the rate of 20 mL an hour. She will feeds has been placed on hold as the patient was having seasonal joules. He was given laxatives in addition to Reglan and we are going to consider repeating already trying the tube feeds again. Flat film of the abdomen was also done and it was nondiagnostic as the patient had severe subcutaneous emphysema involving the entire abdomen. The balls were not ad equately visualized. On examination, his abdomen is nondistended and soft and the patient has sluggish and diminished bowel sounds. The CODE STATUS remains full. 07/04/2021, the patient is being seen for a follow-up. Critically ill male patient with COVID-19 related pneumonia complicated by diffuse ARDS, subcutaneous emphysema, pneumomediastinum without pneumothorax and subsequent Aspergillus infection. The patient had developed significant necrosis of the airways along the right mainstem/right lower lobe and please refer to the earlier bronchoscopy that was done indicating his Aspergillus infection. He remains on voriconazole. He remains on a mechanical ventilator. He remains on volume cycle mode of mechanical ventilation. Tidal volumes of 400 with a rate of 36 and an FiO2 of 80% with a PEEP of 14. Peak airway pressure was 47 earlier this morning. I dropped reportedly his tidal volume down to 340 mL. His current peak airway pressures are 39 with a static pressure of 33. His subcutanous emphysema is clinically improving. The chest x-ray is showing significant amount of subcutaneous emphysema and pneumomediastinum still. No evidence of any pneumothorax. Blood gases earlier today showed a pH of 7.14 with a pCO2 of 70 and pO2 of 70. Along with a drop in the tidal volume, the patient was given bicarb to avoid any significant respiratory acidosis. His metabolic acidosis is improved and the serum bicarb is up to 23. The patient underwent hemodialysis yesterday and he also completed hemodialysis today. In terms of his COVID-19, the patient is still on Decadron 4 mg IV on a daily basis. The patient remains on the coagulation with Eliquis 2.0 mg by mouth twic e a day as the patient continues to be in atrial fibrillation with a controlled rate. The patient is receiving dialysis on daily basis and the patient's last since dialysis session was today. Total of 2 L of fluid was removed. The patient is currently on no pressors. Norepinephrine infusion and currently this is running at 0.4 mcg/kg per minute. Unable to wean off the Precedex yesterday. Antibiotic coverage remains a combination of or econazole and cefepime. ID is on the case for now. The patient is having still difficulties with enteral feeding with increased residuals. Objective - Vital Signs Vital signs: Vital Signs Temp 97.8 F 07/04/21 08:00 Pulse 94 10/21/21 11:00 Resp 20 07/04/21 11:00 BP 96/59 07/04/21 08:00 Pulse Ox 89 L 07/04/21 11:00 Intake & Output 07/03/21 07/04/21 07/04/21 18:59 06:59 18:59 Intake Total 7598.918 9864.577 611.053 Output Total 2500 2000 Balance -441.916 3823.577 -1388.947 Weight 119.4 kg 120.4 kg Intake: IV 276 299 92 0.9 240 260 80 Pressure bag 36 39 12 Intake, IV Titration 961.692 778.577 479.053 Amount Cisatracurium 200 mg In 115.444 200 86.436 Sodium Chloride 0.9% 180 ml @ 1 MCG/KG/MIN 5.88 mls/hr IV .Q24H [facility] Rx#: [id number] Clevidipine Butyrate 25 0.267 mg In Empty Bag 1 bag @ 1 MG/HR 2 mls/hr IV .Q24H [facility] Rx#:[id number] Norepinephrine 8 mg In 356.441 237.924 97.785 Sodium Chloride 0.9% 250 ml @ 0.05 MCG/KG/MIN 9. 482 mls/hr IV .Q24H [facility] Rx#:[id number] fentaNYL (PF). 1,000 mcg 89.807 100 In Sodium Chloride 0.9% 80 ml @ 0.25 MCG/KG/HR 2. 765 mls/hr IV .Q24H [facility] Rx#:[id number] propofoL 1,000 mg In 400.000 340.653 194.565 Empty Bag 1 bag @ Titrate IV .Q0M [facility] Rx#: [id number] Tube Feeding 60 120 40 Blood Product 310 Rc As-1 Unit 310 [id number] Other 90 60 Output: Urine 0 0 Hemodialysis 2500 2000 Other: Voiding Method Indwelling Catheter Indwelling Catheter Indwelling Catheter ABP, PAP, CO, CI - Last Documented Arterial Blood Pressure 91/44 - Exam The patient has a tacheostomy tube, sedated and paralyzed, generally swollen 75-year-old white male, on assist-control mode of ventilation. Patient has significant subcutaneous air present in his face, eyelids, neck, bilateral chest, and bilateral arms compared to yesterday, there is obvious improvement in the subcutaneous emphysema of the face and the neck and the upper chest seems to be less distended and swollen compared to yesterday. HEAD: Normocephalic/atraumatic. EYES: Normal reaction of pupils, equal size. Conjunctiva pink, sclera white. NOSE: Clear with pink turbinates. THROAT: No erythema or exudates. NECK: No masses, no JVD, no thyroid enlargement, no adenopathy. The patient has a Bivona #8 tracheostomy tube CHEST: No chest wall deformity. Symmetrical expansion. LUNGS: Equal air entry with diminished breath sounds bilaterally, with diffuse crackles and there is subcutaneous emphysema as noted CVS: Regular rate and rhythm, normal S1 and S2, no gallops, no murmurs, no rubs ABDOMEN: Soft, nontender. No hepatosplenomegaly, normal bowel sounds, no guarding or rigidity. PEG tube is in place with tube feedings infusing EXTREMITIES: No clubbing, 1+ generalized edema no cyanosis, 2+ pulses and upper and lower extremities. Patient has right groin temporary hemodialysis catheter in place MUSCULOSKELETAL: Muscle strength and tone normal. SPINE: No scoliosis or deformity SKIN: No rashes CENTRAL NERVOUS SYSTEM: Sedated, intubated and paralyzed No focal deficits, tone developed nausea or in place, is normal in all 4 extremities. - Labs CBC & Chem 7: 07/04/21 02:55 07/04/21 02:55 Labs: Abnormal Lab Results - Last 24 Hours (Table) 07/03/21 07/03/21 07/04/21 Range/Units 18:25 23:15 02:55 WBC 20.9 H (3.8-10.6) k/uL RBC 2.24 L (4.30-5.90) m/uL Hgb 7.1 L (13.0-17.5) gm/dL Hct 21.0 L (39.0-53.0) % RDW 16.1 H (11.5-15.5) % Plt Count 475 H (150-450) k/uL Neutrophils # (Manual) 19.40 H (1.3-7.7) k/uL Lymphocytes # (Manual) 0.21 L (1.0-4.8) k/uL Metamyelocytes # (Man) 0.63 H (0) k/uL Myelocytes # (Manual) 0.21 H (0) k/uL D-Dimer (<0.60) mg/L FEU ABG pH (7.35-7.45) ABG pCO2 (35-45) mmHg ABG pO2 (83-108) mmHg ABG Total CO2 (19-24) mmol/L ABG O2 Saturation (94-97) % Sodium (137-145) mmol/L BUN (9-20) mg/dL Creatinine (0.66-1.25) mg/dL POC Glucose (mg/dL) 104 H 107 H (75-99) mg/dL Calcium (8.4-10.2) mg/dL Lactate Dehydrogenase (313-618) U/L C-Reactive Protein (<1.0) mg/dL Total Protein (6.3-8.2) g/dL Albumin (3.5-5.0) g/dL 07/04/21 07/04/21 07/04/21 Range/Units 02:55 02:55 05:30 WBC (3.8-10.6) k/uL RBC (4.30-5.90) m/uL Hgb (13.0-17.5) gm/dL Hct (39.0-53.0) % RDW (11.5-15.5) % Plt Count (150-450) k/uL Neutrophils # (Manual) (1.3-7.7) k/uL Lymphocytes # (Manual) (1.0-4.8) k/uL Metamyelocytes # (Man) (0) k/uL Myelocytes # (Manual) (0) k/uL D-Dimer 4.55 H (<0.60) mg/L FEU ABG pH 7.14 L* (7.35-7.45) ABG pCO2 70 H (35-45) mmHg ABG pO2 70 L (83-108) mmHg ABG Total CO2 26 H (19-24) mmol/L ABG O2 Saturation 91.9 L (94-97) % Sodium 134 L (137-145) mmol/L BUN 46 H (9-20) mg/dL Creatinine 2.88 H (0.66-1.25) mg/dL POC Glucose (mg/dL) (75-99) mg/dL Calcium 8.1 L (8.4-10.2) mg/dL Lactate Dehydrogenase 699 H (313-618) U/L C-Reactive Protein 7.5 H (<1.0) mg/dL Total Protein 4.4 L (6.3-8.2) g/dL Albumin 2.0 L (3.5-5.0) g/dL Assessment and Plan Plan: 1 Acute hypoxic respiratory failure secondary to COVID-19 pneumonia, patient was not vaccinated. He failed BiPAP therapy, was intubated on 06/15/2021, he remains sedated and paralyzed on assist control mode of ventilation with a PEEP of 14 and FiO2 of 80% today. The patient developed prolonged respiratory failure requiring vent support and the patient has undergone a tracheostomy tube insertion on 06/28/2021 and the patient has a #8 Bivona [address] tube in place. Remains on Nimbex, Diprivan the course was also complicated by extensive subcutaneous emphysema, no complications with associated pneumonia. No evidence of any pneumothorax. . The patient is post bronchoscopy on 06/30/2021, awaiting final cultures. Earlier cultures indicated Aspergillus and Pseudomonas, still on a combination of voriconazole and cefepime. Based on the bronchoscopy note, there is extensive necrosis of the bronchial airways involving the right mainstem bronchus and the bronchus intermedius. The patient for now is essentially unchanged. His peak and static pressures were quite elevated. Based on that, I'll order tidal volume I will going to proceed with low tidal volume ventilation. We'll supplement him with BiCAP to prevent any underlying respiratory acidosis. He underwent hemodialysis today. He is on a Decadron dose of 4 mg on a daily basis. Monitor saphenous emphysema. Monitor blood gas. Monitor chest x-ray. 2 Subcutaneous emphysema, and pneumomediastinum. subcutaneous emphysema , essentially unchanged compared to yesterday 3 Acute kidney injury, patient was started on hemodialysis on 06/20/2021, and the patient is receiving periodic hemodialysis, and the last bottle hemodialysis was yesterday and the patient will be dialyzed today she 4 History of chronic atrial fibrillation, with recent RVR, currently on amiodarone and Eliquis for anticoagulation him a the patient is having episodes this of atrial fibrillation, 5 Pseudomonas aeruginosa in his sputum culture, possibly related to immunosuppression, currently on Zosyn, and Diflucan for Essence albicans in the sputum culture. Most recent sputum culture from 06/22/2021 shows Aspergillus not fumigatus. Current antibiotic coverage includes cefepime and voriconazole 6 Extensive oropharyngeal candidiasis, patient was on Diflucan, currently on voriconazole 7 Leukocytosis, resolved, and white blood cell count is 20 8 Elevated d-dimer, and inflammatory markers related to acute COVID-19 pneumonia, , inflammatory markers are slightly improved but still remain elevated 9 Fluid overload and the patient is undergoing hemodialysis periodically 10 hypotension, currently on low dose norepinephrine infusion for hemodynamic support. 11 acidosis which is a combination of metabolic and respiratory acidosis. Serum bicarb is down to 23 12 sepsis with secondary to hypotension, currently on norepinephrine infusion running at 0.4 mcg/kg per minute. The patient remains covered with a broad- spectrum antibiotics including cefepime and voriconazole Plan: Continue ventilator support Drop the tidal volume down to 340 mL and give the patient a total of 150 mEq of sodium bicarb IV push Repeated blood gases at around 2 PM Repeat 2 sets of blood cultures Continue antibiotic coverage Wean off pressors gradually Hemodialysis per nephrology , suggest dialysis today Continue Decadron, continue antibiotics Continue tube feedings, continue stool softeners and Reglan, the tube feeds will be restarted today in the lower rate of 10 mL an hour and will monitor the residuals Overall prognosis is guarded Follow-up chest x-ray labs, inflammatory markers tomorrow Daily labs, daily blood gas Eliquis at 2.5 mg by mouth twice a day and watch for any signs of bleeding Unfortunately the prognosis extremely poor. The patient has signs of multisystem organ failure post COVID-19 related pneumonia and ARDS. I had a lengthy discussion with the family yesterday. I spoke to the daughter and the . Family was informed of the poor prognosis. The family wanted to proceed with ongoing treatment with understanding that the outcome is poor and the patient has a high likelihood for mortality/staph due to above-mentioned comorbidities. We'll continue to follow. Critical care evrichard, >30 min Time with Patient: Greater than 30
--- NOTE | 2021-07-04 12:42 | P.PN ---
Subjective Progress Note Date: 07/04/21 CHIEF COMPLAINT: COVID-19 pneumonia HISTORY OF PRESENT ILLNESS: Patient currently ICU for COVID-19 pneumonia. He is on mechanically ventilation. He is status post tracheostomy placement on 06/26/2021. PEG tube insertion was aborted. Unable to see light reflex during EGD. Patient has NG tube in place for tube feedings. Patient is receiving hemodialysis and this morning. Hemoglobin improved from 6.8-7.1 after 1 unit of blood. WBC is 20.9. Afebrile. PHYSICAL EXAM: VITAL SIGNS: Reviewed. GENERAL: Well-developed in no acute distress. HEENT: No sclera icterus. Extraocular movements grossly intact. Moist buccal mucosa. Head is atraumatic, normocephalic. Tracheostomy site clean dry and i ntact ABDOMEN: Soft. NEUROLOGIC: On mechanical ventilation and sedated ASSESSMENT: 1. Acute hypoxic respiratory failure secondary to COVID-19 pneumonia. Patient requiring prolonged mechanical ventilation. Status post tracheostomy placement 2. Severe protein calorie malnutrition PLAN: -Continue ICU management -Continue supportive care -Continue tube feeds through NG tube Physician Clay Maker note has been reviewed by physician. Signing provider agrees with the documented findings, assessment, and plan of care. Objective - Vital Signs Vital signs: Vital Signs Temp 97.5 F L 07/04/21 12:00 Pulse 99 07/04/21 12:00 Resp 36 H 07/04/21 12:00 BP 96/59 07/04/21 08:00 Pulse Ox 88 L 07/04/21 12:00 Intake & Output 07/03/21 07/04/21 07/04/21 18:59 06:59 18:59 Intake Total 1661.958 6702.577 644.053 Output Total 2500 2000 Balance -261.175 6796.577 -1355.947 Weight 119.4 kg 120.4 kg Intake: IV 276 299 115 0.9 240 260 100 Pressure bag 36 39 15 Intake, IV Titration 961.692 778.577 479.053 Amount Cisatracurium 200 mg In 115.444 200 86.436 Sodium Chloride 0.9% 180 ml @ 1 MCG/KG/MIN 5.88 mls/hr IV .Q24H [facility] Rx#: [id number] Clevidipine Butyrate 25 0.267 mg In Empty Bag 1 bag @ 1 MG/HR 2 mls/hr IV .Q24H [facility] Rx#:[id number] Norepinephrine 8 mg In 356.441 237.924 97.785 Sodium Chloride 0.9% 250 ml @ 0.05 MCG/KG/MIN 9. 482 mls/hr IV .Q24H [facility] Rx#:[id number] fentaNYL (PF). 1,000 mcg 89.807 100 In Sodium Chloride 0.9% 80 ml @ 0.25 MCG/KG/HR 2. 765 mls/hr IV .Q24H [facility] Rx#:[id number] propofoL 1,000 mg In 400.000 340.653 194.565 Empty Bag 1 bag @ Titrate IV .Q0M [facility] Rx#: [id number] Tube Feeding 60 120 50 Blood Product 310 Rc As-1 Unit 310 [id number] Other 90 60 Output: Urine 0 0 Hemodialysis 2500 2000 Other: Voiding Method Indwelling Catheter Indwelling Catheter Indwelling Catheter ABP, PAP, CO, CI - Last Documented Arterial Blood Pressure 107/53 - Labs CBC & Chem 7: 07/04/21 02:55 07/04/21 02:55 Labs: Abnormal Lab Results - Last 24 Hours (Table) 07/03/21 07/03/21 07/04/21 Range/Units 18:25 23:15 02:55 WBC 20.9 H (3.8-10.6) k/uL RBC 2.24 L (4.30-5.90) m/uL Hgb 7.1 L (13.0-17.5) gm/dL Hct 21.0 L (39.0-53.0) % RDW 16.1 H (11.5-15.5) % Plt Count 475 H (150-450) k/uL Neutrophils # (Manual) 19.40 H (1.3-7.7) k/uL Lymphocytes # (Manual) 0.21 L (1.0-4.8) k/uL Metamyelocytes # (Man) 0.63 H (0) k/uL Myelocytes # (Manual) 0.21 H (0) k/uL D-Dimer (<0.60) mg/L FEU ABG pH (7.35-7.45) ABG pCO2 (35-45) mmHg ABG pO2 (83-108) mmHg ABG Total CO2 (19-24) mmol/L ABG O2 Saturation (94-97) % Sodium (137-145) mmol/L BUN (9-20) mg/dL Creatinine (0.66-1.25) mg/dL POC Glucose (mg/dL) 104 H 107 H (75-99) mg/dL Calcium (8.4-10.2) mg/dL Lactate Dehydrogenase (313-618) U/L C-Reactive Protein (<1.0) mg/dL Total Protein (6.3-8.2) g/dL Albumin (3.5-5.0) g/dL 07/04/21 07/04/21 07/04/21 Range/Units 02:55 02:55 05:30 WBC (3.8-10.6) k/uL RBC (4.30-5.90) m/uL Hgb (13.0-17.5) gm/dL Hct (39.0-53.0) % RDW (11.5-15.5) % Plt Count (150-450) k/uL Neutrophils # (Manual) (1.3-7.7) k/uL Lymphocytes # (Manual) (1.0-4.8) k/uL Metamyelocytes # (Man) (0) k/uL Myelocytes # (Manual) (0) k/uL D-Dimer 4.55 H (<0.60) mg/L FEU ABG pH 7.14 L* (7.35-7.45) ABG pCO2 70 H (35-45) mmHg ABG pO2 70 L (83-108) mmHg ABG Total CO2 26 H (19-24) mmol/L ABG O2 Saturation 91.9 L (94-97) % Sodium 134 L (137-145) mmol/L BUN 46 H (9-20) mg/dL Creatinine 2.88 H (0.66-1.25) mg/dL POC Glucose (mg/dL) (75-99) mg/dL Calcium 8.1 L (8.4-10.2) mg/dL Lactate Dehydrogenase 699 H (313-618) U/L C-Reactive Protein 7.5 H (<1.0) mg/dL Total Protein 4.4 L (6.3-8.2) g/dL Albumin 2.0 L (3.5-5.0) g/dL
[2021-07-04 12:49] LABS: Glucose,Whole Blood 114 mg/dL (75-99)
--- NOTE | 2021-07-04 12:50 | PN ---
PROGRESS NOTE Patient is seen for followup for acute kidney injury. He remains hemodialysis dependent. Patient is seen on hemodialysis. He is tolerating his treatment well. No significant changes since yesterday. Vent settings are the same at FiO2 of 80%. Oxygen saturation at about 87-88%. PHYSICAL EXAMINATION: On examination today, blood pressure was 111/48, heart rate 101 per minute, he is afebrile. Examination of the heart S1, S2. Examination of the lungs, bilateral breath sounds are heard. Patient remains on the vent. He is sedated. He has significant edema with severe scrotal edema noted as well. Abdomen is distended, soft. LAB: Show sodium 134, potassium 4.1, BUN 46, creatinine 2.8, hemoglobin 7.1 g/dL. ASSESSMENT: 1. Acute kidney injury, ATN, hemodialysis dependent. Continue with daily treatments. UF of about 2 L every day. 2. Anemia status post packed RBCs transfusion. 3. Acute hypoxic respiratory failure secondary to COVID pneumonia, Pseudomonas pneumonia as well as Aspergillus pneumonia and possible ARDS. 4. Metabolic acidosis associated with renal failure, hypercatabolic state, improved with dialysis. We will continue to adjust the bicarb and the electrolytes on the dialysis bath based on his labs and continue UF of about 2-3 L as tolerated on a daily basis. MMODL / IJN: [id number] /
[2021-07-04 14:27] LABS: ABG HCO3 28 mmol/L (21-25); ABG Oxygen Saturation 86.7 % (94-97); ABG PO2 60 mmHg (83-108); ABG TCO2 31 mmol/L (19-24)
[2021-07-04 14:29] LABS: ABG PH 7.12 (7.35-7.45)
[2021-07-04 14:30] LABS: ABG PCO2 88 mmHg (35-45); Allen Test Performed? no
[2021-07-04] MEDS ORDERED: SODIUM BICARB 8.4% 50 ML SYR (1 MEQ/ML) ONE (15:02)
[2021-07-04 15:10] VITALS: RESP 36
[2021-07-04] MEDS ORDERED: AMIODARONE 360 MG in DEXTROSE 5% IN WATER 200 ML IV ONE ×2 (16:02)
[2021-07-04] MEDS: DARBEPOETIN ALFA 40 MCG/0.4 ML SYRINGE SQ SCH (17:27)
--- NOTE | 2021-07-04 18:20 | PN ---
PROGRESS NOTE DATE OF SERVICE: 07/04/2021 REASON FOR FOLLOWUP: Pneumonia. INTERVAL HISTORY: The patient is afebrile. The patient remains to be intubated on the vent. The patient is hemodynamically stable not on pressor support. No significant ( ) or any changes reported by the nursing staff. PHYSICAL EXAMINATION: Blood pressure 94/49, pulse of 92, temperature 97.5. He is 97% on 80% FiO2. General description is an elderly male lying in bed in no distress. Respiratory system: Unlabored breathing, decreased intensity of breath sounds, no wheeze. Heart S1, S2. Regular rate and rhythm. Abdomen soft, no tenderness. LABS: Hemoglobin 7.1, white count 20.9. Creatinine is 2.8. DIAGNOSTIC IMPRESSION AND PLAN: 1. Patient with acute respiratory failure with initial diagnosis of COVID-19 pneumonia, possible ( ), now with concern for ( ), covered with voriconazole. 2. White count elevated, more likely steroid effect and will monitor closely. Continue supportive care. MMODL / IJN: [id number] /
[2021-07-04 19:05] LABS: Glucose,Whole Blood 134 mg/dL (75-99)
[2021-07-04] MEDS: AMIODARONE 450 MG in DEXTROSE 5% IN WATER 250 ML IV SCH ×2 (22:07)
[2021-07-04 23:40] LABS: Glucose,Whole Blood 146 mg/dL (75-99)
[2021-07-05] MEDS: NOREPINEPHRINE 8 MG in SODIUM CHLORIDE 0.9% 250 ML IV SCH ×12 (00:17→18:49)
[2021-07-05] MEDS: fentaNYL (PF). 1,000 MCG in SODIUM CHLORIDE 0.9% 80 ML IV SCH ×2 (00:18→13:48)
[2021-07-05] MEDS: VORICONAZOLE IVPB SCH ×3 (01:46→15:56)
[2021-07-05] MEDS: SODIUM CHLORIDE 0.9% IVPB SCH ×3 (01:46→15:56)
[2021-07-05] MEDS: ARTIFICIAL TEARS-HYPROMELLOSE DROPS 15 ML BTL BOTH EYES SCH ×4 (03:40→17:04)
[2021-07-05] MEDS: METOCLOPRAMIDE 5 MG/ML 2 ML VIAL IVP SCH ×2 (03:40→11:51)
[2021-07-05 04:39] LABS: Albumin 1.8 g/dL (3.5-5.0); Calcium 7.8 mg/dL (8.4-10.2); Total Bilirubin 0.6 mg/dL (0.2-1.3)
[2021-07-05 04:44] LABS: Anisocytosis Slight; Hypochromasia Slight; MCH 34.2 pg (25.0-35.0); MCHC 37.1 g/dL (31.0-37.0); MCV 92.3 fL (80.0-100.0); Mean Platelet Volume 9.4; Platelet Count 518 k/uL (150-450); Poikilocytosis Moderate; RBC 1.74 m/uL (4.30-5.90); RDW 17.2 % (11.5-15.5)
[2021-07-05 04:48] LABS: HGB 5.9 gm/dL (13.0-17.5)
[2021-07-05 05:41] LABS: ABG Base Excess -4.1 mmol/L; ABG HCO3 26 mmol/L (21-25); ABG Oxygen Saturation 88.8 % (94-97); ABG PO2 69 mmHg (83-108); ABG TCO2 29 mmol/L (19-24); Allen Test Performed? Yes
[2021-07-05 05:44] LABS: ABG PCO2 94 mmHg (35-45); ABG PH 7.06 (7.35-7.45)
[2021-07-05 05:49] LABS: Band Neutrophils % 8 %; Metamyelocytes % 1 %; Myelocytes % 3 %; Neutrophils % (M) 85 %; Nucleated Red Blood Cells 4 /100 WBC (0-0); Total Cells Counted 100
[2021-07-05 05:50] LABS: Anisocytosis (M) Present; Hypochromasia (M) Present; Lymphocytes # (M) 0.53 k/uL (1.0-4.8); Metamyelocytes # (M) 0.26 k/uL (0); Monocytes # (M) 0.26 k/uL (0-1.0); Myelocytes # (M) 0.79 k/uL (0); Poikilocytosis (M) Present; Polychromasia Present; WBC 26.3 k/uL (3.8-10.6)
[2021-07-05 05:57] LABS: Glucose,Whole Blood 128 mg/dL (75-99)
[2021-07-05] MEDS: CALCIUM ACETATE 667 MG TAB PO SCH ×4 (06:30→17:04)
--- NOTE | 2021-07-05 07:08 | XR ---
EXAMINATION TYPE: XR chest 1V portable DATE OF EXAM: 07/05/2021 COMPARISON: 07/04/2021 HISTORY: SOB, Follow Up FINDINGS: Indwelling tubes and catheters are unchanged. Diffuse airspace infiltrates persist without significant change. Subcutaneous emphysema unchanged as well. Stable appearance of the cardio-mediastinal structures at this time. Pleural effusion unchanged. IMPRESSION: 1. Stable portable chest. Clinical correlation and follow up until resolution is recommended.
[2021-07-05] MEDS: CISATRACURIUM 200 MG in SODIUM CHLORIDE 0.9% 180 ML IV SCH (07:12)
[2021-07-05] MEDS: ALBUTEROL HFA INHALER INHALATION SCH ×4 (07:16→20:31)
[2021-07-05] MEDS: SENNOSIDES-DOCUSATE SODIUM 1 EACH TAB PO SCH (08:31)
[2021-07-05] MEDS: DEXAMETHASONE SOD PHOSPHATE 4 MG/ML 1 ML VIAL IV SCH (08:31)
[2021-07-05] MEDS: PANTOPRAZOLE 40 MG/10 ML VIAL IVP SCH (08:31)
[2021-07-05] MEDS: CHLORHEXIDINE GLUCONATE 15 ML CUP MUCOUS MEM SCH (08:31)
[2021-07-05] MEDS: CYANOCOBALAMIN 500 MCG TAB PO SCH (08:32)
[2021-07-05] MEDS: ZINC SULFATE 220 MG CAP PO SCH (08:32)
[2021-07-05] MEDS: CHOLECALCIFEROL 25 MCG (1000 IU) TABLET PO SCH (08:32)
[2021-07-05] MEDS: ASCORBIC ACID 500 MG TAB PO SCH (08:32)
[2021-07-05] MEDS: METOPROLOL TARTRATE 25 MG TAB PO SCH (09:14)
[2021-07-05] MEDS: AMIODARONE 200 MG TAB PO SCH (09:14)
[2021-07-05 09:42] VITALS: BMI 41.7
[2021-07-05] MEDS ORDERED: VANCOMYCIN IV PER PHARMACY 1 EACH MISC MISCELLANE PRN (09:48)
--- NOTE | 2021-07-05 09:51 | P.PN ---
Subjective Progress Note Date: 07/05/21, the patient remains in the intensive care units. This is a case of a COVID 19 related pneumonia with respiratory failure, intubated on mechanical ventilator. The patient is being seen for a follow-up. Remains sedated, paralyzed, intubated on mechanical ventilator and the patient remains on assist control mode at the rate of 36, tidal volume of 400, FiO2 of 70% with a PEEP of 14. The peak airway pressures are at 40. The static pressure is 33. The blood gases from today shows a pH of 7.15 with a pCO2 of 66 and pO2 of 84. Chest x- ray continues to show extensive bilateral pulmonary interstitial and alveolar infiltrates without any significant change. There is subcutaneous air and mediastinal air as noted. No cardiomegaly. No evidence of any pneumothorax. The patient has a number #8 Bivona [address] in [address] The patient remains on the mechanical ventilator. The patient had initial on 06/02/2021 that showed pseudomonas aeruginosa and Essence. Subsequently, the repeat cultures from 06/22/2021 was positive for Aspergillus, subsequent bronchoscopy was done on 06/30/2021 and the repeat cultures still pending for now. Meanwhile, the patient is covered with a combination of IV cefepime and voriconazole. Remains on Decadron 4 mg IV every 24 hours. The patient's course was also complicated by development of an acute kidney injury related to the COVID-19 related pneumonia. The patient was requiring daily hemodialysis. He had dialysis and 06/29/2021 with a total of 2 L of fluid was removed. The dialysis was done on 06/30/2021. Blood pressure remains on the higher side and the patient is currently on Cleviprex for blood pressure control. He continues to have significant amount of edema in his upper and lower extremities in addition to that the patient has scrotal edema. On examination, there is extensive subcutaneous emphysema in the face, neck, chest and upper extremity. Abdomen is distended soft. The patient remains sedated with propofol running at 50 mics of respiratory per minute and fentanyl at 0.6 mcg/kg per minute. The patient remains paralyzed with Nimbex at 3 mcg/kg per minute. Patient's is currently receiving enteral feeding for nutritional support with vital high protein at the rate of 30 mL an hour. Clinically, the patient continues to have extensive subcutaneous emphysema involving the face, neck, chest and upper extre mities. He has an NG tube in place. I reviewed a bronchoscopy images and the patient has extensive necrosis involving the airways mainly involving the right lung at the level of the right mainstem bronchus and bronchus intermedius. Highly suspicious for Aspergillus infection. Patient remains on voriconazole. 07/02/2021, the patient is being seen for a follow-up. Remains on a mechanical ventilator. He is a case of COVID-19 related pneumonia complicated by ARDS, extensive pneumomediastinum and subcutaneous emphysema without pneumothorax. This morning, he remains sedated and paralyzed. He is on propofol running at 50 mcg/kg per minute and the patient is also paralyzed with Nimbex at 3 mg/kg per minute. He is also on fentanyl at 0.6 mitral respiratory kilogram per hour. On a mechanical ventilator, his peak airway pressure is ranging between 41 and 44. His static airway pressure is 41. His airway pressures are slightly higher compared to yesterday. His blood gases from today shows a pH of 7.11 with a pCO2 of 68 and pO2 of 88. Terms of secretions, history secretions are scant. Nevertheless, the most recent bronchoalveolar lavage that was done showed positive Aspergillus species and we do suspect highly and Aspergillus infection knowing that there was extensive necrosis and blackening of the airway especially on the right along the right mainstem bronchus and there was excess amount of debris's identified and a previous bronchoscopy that was done by my partner. The patient remains on voriconazole. The patient remains also on IV cefepime. He does have extensive subcutaneous emphysema and the amount of emphysema is unchanged compared to yesterday. His face, neck, chest and upper extremities are extensively swollen. On today's evaluation, his tracheostomy tu be is in place and the patient has a #8 Bivona tracheostomy tube in place. He is returning his volumes adequately. No evidence of any leak around the tracheostomy tube. Hemodynamically, he was slightly hypotensive yesterday and the patient was started on norepinephrine infusion and currently is on norepinephrine running at 0.06 mcg/kg per minute. He remains on Decadron and the dose was reduced to 4 mg IV every 24 hours. He is receiving daily hemodialysis. He last had dialysis yesterday with a total of 2 L of fluid was removed. He is receiving enteral feeding for nutritional support. He has an NG tube in place. He is currently on vitamin HP at the rate of 20 mL an hour. Note that the patient is on no anticoagulation. He was having epistaxis earlier and his nostrils are intact bilaterally. He was taken off anticoagulants. 07/03/2021 the patient is being seen for a follow-up. Critically ill male patient with COVID-19 pneumonia, complicated by further infection with gram-nega tive pseudomonas and subsequently Aspergillus species with secondary ARDS and prolonged respiratory failure with has a tracheostomy tube in place. His course was further comfort. By normal mediastinum and extensive subcutaneous emphysema without pneumothorax. The patient has remained sedated and paralyzed throughout this week and the patient remains on propofol which is currently running at 40 g kilogram per minute. He is also paralyzed with Nimbex at 2 mcg/kg/m. Fentanyl is still running at 0.6 mcg/kg/h. He is synchronous with the mechanical ventilator. Clinically, his subcutaneous emphysema is improved. Chest x-ray also showed improvement in the subcutaneous air under the skin, ho wever, he does have still diffuse breath and pulmonary infiltrates consistent with ARDS. While on a mechanical ventilator, his peak airway pressures around 38, static airway pressure is 35. He has a #8 Bivona trache[address] tube in place. Blood gases showed a pH of 7.07 with a pCO2 of 66 and pO2 of 81. This is a combination of respiratory and metabolic acidosis. His serum bicarbonate has dropped down to 16. Furthermore, the patient is undergoing daily hemodialysis. Urine output is minimal at this point in time. He remains on pressors probably due to underlying sepsis. On epinephrine infusion is running at 0.14 mcg/kg per minute. The patient is currently in a A. fib rhythm, controlled rate, Eliquis and started at a low dose of 2.5 mg twice a day without evidence of any bleeding. His hemoglobin drifted gradually down to 6.8 from this day and the patient will be transfused with a unit of packed RBC. He is receiving vital high protein for enteral feeding and nutritional support at the rate of 20 mL an hour. She will feeds has been placed on hold as the patient was having seasonal joules. He was given laxatives in addition to Reglan and we are going to consider repeating already trying the tube feeds again. Flat film of the abdomen was also done and it was nondiagnostic as the patient had severe subcutaneous emphysema involving the entire abdomen. The balls were not ad equately visualized. On examination, his abdomen is nondistended and soft and the patient has sluggish and diminished bowel sounds. The CODE STATUS remains full. 07/04/2021, the patient is being seen for a follow-up. Critically ill male patient with COVID-19 related pneumonia complicated by diffuse ARDS, subcutaneous emphysema, pneumomediastinum without pneumothorax and subsequent Aspergillus infection. The patient had developed significant necrosis of the airways along the right mainstem/right lower lobe and please refer to the earlier bronchoscopy that was done indicating his Aspergillus infection. He remains on voriconazole. He remains on a mechanical ventilator. He remains on volume cycle mode of mechanical ventilation. Tidal volumes of 400 with a rate of 36 and an FiO2 of 80% with a PEEP of 14. Peak airway pressure was 47 earlier this morning. I dropped reportedly his tidal volume down to 340 mL. His current peak airway pressures are 39 with a static pressure of 33. His subcutanous emphysema is clinically improving. The chest x-ray is showing significant amount of subcutaneous emphysema and pneumomediastinum still. No evidence of any pneumothorax. Blood gases earlier today showed a pH of 7.14 with a pCO2 of 70 and pO2 of 70. Along with a drop in the tidal volume, the patient was given bicarb to avoid any significant respiratory acidosis. His metabolic acidosis is improved and the serum bicarb is up to 23. The patient underwent hemodialysis yesterday and he also completed hemodialysis today. In terms of his COVID-19, the patient is still on Decadron 4 mg IV on a daily basis. The patient remains on the coagulation with Eliquis 2.0 mg by mouth twic e a day as the patient continues to be in atrial fibrillation with a controlled rate. The patient is receiving dialysis on daily basis and the patient's last since dialysis session was today. Total of 2 L of fluid was removed. The patient is currently on no pressors. Norepinephrine infusion and currently this is running at 0.4 mcg/kg per minute. Unable to wean off the Precedex yesterday. Antibiotic coverage remains a combination of or econazole and cefepime. ID is on the case for now. The patient is having still difficulties with enteral feeding with increased residuals. 07/05/2021, the patient's condition has decompensated further. This morning, the patient remains sedated and paralyzed. Nevertheless, since yesterday and overnight the patient became progressively unstable, hemodynamically and his pressor requirements have gone up significantly. This morning, he is on propofo l which is running at 45 Steven respiratory failure and per minute. He is also paralyzed with Nimbex at 2 mcg/kg per minute. Attempts to discontinue Nimbex yesterday failed as the patient decompensated and became asynchronous with a mechanical ventilator and more hypoxic. As such, he was restarted back on Nimbex. He remains on a mechanical ventilator. On today's evaluation, he is an assist-control mode with a rate of 36, tidal volume of 340, FiO2 of 100% with a PEEP of 14. The blood gases from today showed a pH of 7.06 with a pCO2 of 94 and pO2 of 69. Chest x-ray remains unchanged with extensive subcutaneous emphysema and the patient has also diffuse bilateral pulmonary infiltrates c onsistent with COVID-19 related pneumonia/ARDS. The patient has a tracheostomy tube in place and the patient has a #801 a tracheostomy tube. No significant orotracheal secretions. Note that he is hemodynamically unstable at this point in time. Norepinephrine infusion is running at 1 mcg/kg per minute and there has been a significant increase in his pressor requirements since yesterday. This goes along with some bloody output from his NG, melanotic consistent with GI bleed. Enterofeeding is currently on hold. NG tube is being applied to suction. Output will be noted. Note that his hemoglobin has dropped down to 5.9 this morning and the patient is receiving a unit of packed RBC. Urine output is minimal at this point in the order of 1-2 mL an hour. On a separate note, blood cultures collected from yesterday showing gram-positive cocci and the patient will be started on vancomycin. Note that he has a triple lumen catheter that was inserted several weeks back in his left subclavian. The patient also has a temporary dialysis catheter in his right femoral vein. White cell count today is at 26.3 and the white cell count has been gradually going up over the past few days. Platelet count is at 518. Rest of the blood work shows a serum bicarb of 25, sodium is at 142 and the potassium level is at 4.0. Cardiac rhythm remains Afibplan increase his heart rate and rapid ventricular response, the patient was restarted back on amiodarone drip which is currently running at 0.5 mg per minute. The patient was restarted on his anticoagulation with Eliquis and this will be placed also on hold.I had a lengthy discussion with the family yesterday. His CODE STATUS remains full and the family opted to proceed with all measures available to continue with this ongoing medical owen atment. As such, there has been no change in his CODE STATUS. Objective - Vital Signs Vital signs: Vital Signs Temp 97.5 F L 07/05/21 08:50 Pulse 94 07/05/21 09:00 Resp 36 H 07/05/21 09:00 BP 81/44 07/05/21 08:50 Pulse Ox 87 L 07/05/21 09:00 Intake & Output 07/04/21 07/05/21 07/05/21 18:59 06:59 18:59 Intake Total 4905.061 2967.562 1138.917 Output Total 2010 0 0 Balance -377.839 4132.562 1138.917 Weight 120.4 kg 128.1 kg Intake: IV 253 276 69 0.9 220 240 60 Pressure bag 33 36 9 Intake, IV Titration 8244.091 9893.562 709.917 Amount Cisatracurium 200 mg In 149.940 159.544 Sodium Chloride 0.9% 180 ml @ 1 MCG/KG/MIN 5.88 mls/hr IV .Q24H [facility] Rx#: [id number] Clevidipine Butyrate 25 0.267 mg In Empty Bag 1 bag @ 1 MG/HR 2 mls/hr IV .Q24H [facility] Rx#:[id number] Norepinephrine 8 mg In 485.668 3520.662 450.373 Sodium Chloride 0.9% 250 ml @ 0.05 MCG/KG/MIN 9. 482 mls/hr IV .Q24H [facility] Rx#:[id number] fentaNYL (PF). 1,000 mcg 100 92.904 In Sodium Chloride 0.9% 80 ml @ 0.25 MCG/KG/HR 2. 765 mls/hr IV .Q24H [facility] Rx#:[id number] propofoL 1,000 mg In 391.279 379.996 100 Empty Bag 1 bag @ Titrate IV .Q0M [facility] Rx#: [id number] Tube Feeding 110 120 20 Blood Product 0 310 Rc As-1 Unit 0 310 [id number] Other 90 30 Output: Urine 10 0 0 Hemodialysis 2000 Other: Voiding Method Indwelling Catheter Indwelling Catheter ABP, PAP, CO, CI - Last Documented Arterial Blood Pressure 78/44 - Exam The patient has a tacheostomy tube, sedated and paralyzed, generally swollen 75-year-old white male, on assist-control mode of ventilation. Patient has some limited subcutaneous emphysema. The patient has a Bivona tracheostomy tube in place. The patient also has a NG tube in place. HEAD: Normocephalic/atraumatic. EYES: Normal reaction of pupils, equal size. Conjunctiva pink, sclera white. NOSE: Clear with pink turbinates. THROAT: No erythema or exudates. NECK: No masses, no JVD, no thyroid enlargement, no adenopathy. The patient has a Bivona #8 tracheostomy tube CHEST: No chest wall deformity. Symmetrical expansion. LUNGS: Equal air entry with diminished breath sounds bilaterally, with diffuse crackles and there is subcutaneous emphysema as noted CVS: Regular rate and rhythm, normal S1 and S2, no gallops, no murmurs, no rubs ABDOMEN: Soft, nontender. No hepatosplenomegaly, normal bowel sounds, no guarding or rigidity. PEG tube is in place with tube feedings infusing EXTREMITIES: No clubbing, 1+ generalized edema no cyanosis, 2+ pulses and upper and lower extremities. Patient has right groin temporary hemodialysis catheter in place MUSCULOSKELETAL: Muscle strength and tone normal. SPINE: No scoliosis or deformity SKIN: No rashes CENTRAL NERVOUS SYSTEM: Sedated, intubated and paralyzed No focal deficits, tone developed nausea or in place, is normal in all 4 extremities. - Labs CBC & Chem 7: 07/05/21 04:00 07/05/21 04:00 Labs: Abnormal Lab Results - Last 24 Hours (Table) 07/03/21 07/04/21 07/04/21 Range/Units 05:45 12:47 14:25 WBC (3.8-10.6) k/uL RBC (4.30-5.90) m/uL Hgb (13.0-17.5) gm/dL Hct (39.0-53.0) % MCHC (31.0-37.0) g/dL RDW (11.5-15.5) % Plt Count (150-450) k/uL Neutrophils # (Manual) (1.3-7.7) k/uL Lymphocytes # (Manual) (1.0-4.8) k/uL Metamyelocytes # (Man) (0) k/uL Myelocytes # (Manual) (0) k/uL Nucleated RBCs (0-0) /100 WBC ABG pH 7.12 L* (7.35-7.45) ABG pCO2 88 H* (35-45) mmHg ABG pO2 60 L (83-108) mmHg ABG HCO3 28 H (21-25) mmol/L ABG Total CO2 31 H (19-24) mmol/L ABG O2 Saturation 86.7 L (94-97) % BUN (9-20) mg/dL Creatinine (0.66-1.25) mg/dL Glucose (74-99) mg/dL POC Glucose (mg/dL) 114 H (75-99) mg/dL Calcium (8.4-10.2) mg/dL Alkaline Phosphatase (38-126) U/L Total Protein (6.3-8.2) g/dL Albumin (3.5-5.0) g/dL Crossmatch See Detail 07/04/21 07/04/21 07/05/21 Range/Units 19:03 23:38 04:00 WBC 26.3 H (3.8-10.6) k/uL RBC 1.74 L (4.30-5.90) m/uL Hgb 5.9 L* (13.0-17.5) gm/dL Hct 16.0 L* (39.0-53.0) % MCHC 37.1 H (31.0-37.0) g/dL RDW 17.2 H (11.5-15.5) % Plt Count 518 H (150-450) k/uL Neutrophils # (Manual) 24.40 H (1.3-7.7) k/uL Lymphocytes # (Manual) 0.53 L (1.0-4.8) k/uL Metamyelocytes # (Man) 0.26 H (0) k/uL Myelocytes # (Manual) 0.79 H (0) k/uL Nucleated RBCs 4 H (0-0) /100 WBC ABG pH (7.35-7.45) ABG pCO2 (35-45) mmHg ABG pO2 (83-108) mmHg ABG HCO3 (21-25) mmol/L ABG Total CO2 (19-24) mmol/L ABG O2 Saturation (94-97) % BUN (9-20) mg/dL Creatinine (0.66-1.25) mg/dL Glucose (74-99) mg/dL POC Glucose (mg/dL) 134 H 146 H (75-99) mg/dL Calcium (8.4-10.2) mg/dL Alkaline Phosphatase (38-126) U/L Total Protein (6.3-8.2) g/dL Albumin (3.5-5.0) g/dL Crossmatch 07/05/21 07/05/21 07/05/21 Range/Units 04:00 05:36 05:55 WBC (3.8-10.6) k/uL RBC (4.30-5.90) m/uL Hgb (13.0-17.5) gm/dL Hct (39.0-53.0) % MCHC (31.0-37.0) g/dL RDW (11.5-15.5) % Plt Count (150-450) k/uL Neutrophils # (Manual) (1.3-7.7) k/uL Lymphocytes # (Manual) (1.0-4.8) k/uL Metamyelocytes # (Man) (0) k/uL Myelocytes # (Manual) (0) k/uL Nucleated RBCs (0-0) /100 WBC ABG pH 7.06 L* (7.35-7.45) ABG pCO2 94 H* (35-45) mmHg ABG pO2 69 L (83-108) mmHg ABG HCO3 26 H (21-25) mmol/L ABG Total CO2 29 H (19-24) mmol/L ABG O2 Saturation 88.8 L (94-97) % BUN 45 H (9-20) mg/dL Creatinine 2.38 H (0.66-1.25) mg/dL Glucose 120 H (74-99) mg/dL POC Glucose (mg/dL) 128 H (75-99) mg/dL Calcium 7.8 L (8.4-10.2) mg/dL Alkaline Phosphatase 129 H (38-126) U/L Total Protein 4.0 L (6.3-8.2) g/dL Albumin 1.8 L (3.5-5.0) g/dL Crossmatch Microbiology - Last 24 Hours (Table) 07/04/21 12:51 Blood Culture Gram Stain - Preliminary Blood 07/04/21 12:51 Blood Culture - Final Blood Assessment and Plan Plan: 1 Acute hypoxic respiratory failure secondary to COVID-19 pneumonia, patient was not vaccinated. He failed BiPAP therapy, was intubated on 06/15/2021, he r emains sedated and paralyzed on assist control mode of ventilation with a PEEP of 14 and FiO2 of 80% today. The patient developed prolonged respiratory failure requiring vent support and the patient has undergone a tracheostomy tube insertion on 06/28/2021 and the patient has a #[address] in [address]. Remains on Nimbex, Diprivan the course was also complicated by extensive subcutaneous emphysema, no complications with associated pneumonia. No evidence of any pneumothorax. . The patient is post bronchoscopy on 06/30/2021, awaiting final cultures. Earlier cultures indicated Aspergillus and Pseudomonas, still on a combination of voriconazole and cefepime. Based on the bronchoscopy note, there is extensive necrosis of the bronchial airways involving the right mainstem bronchus and the bronchus intermedius. The patient for now is essentially unchanged. His peak and static pressures were quite elevated. the blood gasess noted and there is significant acidosis and a form of respiratory acidosis. Chest x-ray is unchanged. Peak and static pressures are quite elevated. Appearance emphysema is improving. Patient continues to be in ARDS secondary to COVID-19 related pneumonia. 2 Subcutaneous emphysema, and pneumomediastinum. subcutaneous emphysema , improved 3 Acute kidney injury, patient was started on hemodialysis on 06/20/2021, and the patient is receiving periodic hemodialysis, patient is receiving daily dialysis. Unsure if he is going to tolerate dialysis today because of the underlying sepsis/hypotension and hemodynamic instability. 4 History of chronic atrial fibrillation, with recent RVR, currently on amiodarone and Eliquis for anticoagulation , amiodarone is running at 0.5 mg per minute 5 Pseudomonas aeruginosa in his sputum culture, possibly related to immunosuppression, currently on Zosyn, and Diflucan for Essence albicans in the sputum culture. Most recent sputum culture from 06/22/2021 shows Aspergillus not fumigatus. Current antibiotic coverage includes cefepime and voriconazole 6 Extensive oropharyngeal candidiasis, patient was on Diflucan, currently on voriconazole 7 Leukocytosis, resolved, and white blood cell count is 26 8 Elevated d-dimer, and inflammatory markers related to acute COVID-19 pneumonia, , inflammatory markers are slightly improved but still remain elevated 9 Fluid overload and the patient is undergoing hemodialysis periodically 10 hypotension, currently on low dose norepinephrine infusion for hemodynamic support. 11 acidosis which is a combination of metabolic and respiratory acidosis. Serum bicarb is down to 23 12 sepsis with secondary to hypotension, and the patient had a positive gram- positive cocci in the blood, consider line infection and the patient will be started on vancomycin. Pressor requirements have gone up since yesterday and the patient is currently on 0.1 mcg/kg per minute of norepinephrine infusion. The patient remains covered with a broad-spectrum antibiotics including cefepime and voriconazole 13 upper GI bleed with bloody aspirate from his NG tube. No melanotic this point in time. There is a drop in hemoglobin down to 5.9 14 acute blood loss anemia secondary to GI bleed, hemoglobin is down to 5.9 Plan: Continue ventilator support no ventilator changes for today Continue with pressors and titrate the dose to maintain immunosuppression above 60 Give the patient total of 2 units of packed RBC Check coagulation profile Stop Eliquis for now Add IV vancomycin Continue cefepime and voriconazole Attempts hemodialysis today, recommend a slow low efficiency dialysis of possible knowing that the patient is quite hemodynamically unstable Keep the patient by mouth for now NG tube to suction Discontinue Decadron Overall prognosis is guarded Follow-up chest x-ray labs, inflammatory markers tomorrow monitor hemoglobin and repeat hemoglobin after the blood transfusion Unfortunately the prognosis extremely poor. The patient has signs of mu ltisystem organ failure post COVID-19 related pneumonia and ARDS. I had a lengthy discussion with the family yesterday. I spoke to the daughter and the . Family was informed of the poor prognosis. The family wanted to proceed with ongoing treatment with understanding that the outcome is poor and the patient has a high likelihood for mortality/staph due to above-mentioned comorbidities. We'll continue to follow.I had a lengthy discussion with the family yesterday. Unable to achieve any changes CODE STATUS. Family insisted on all measures to be done at this point in time and they want to proceed with ongoing medical treatment. We'll watch the GI bleed. We'll treat underlying sepsis. We'll consider line change once dialysis is completed. Condition remains extremity critical with a very poor prognosis. Critical care eval, >30 min Time with Patient: Greater than 30
[2021-07-05] MEDS: APIXABAN 2.5 MG TABLET PO SCH (09:54)
[2021-07-05] MEDS: bisacodyL 10 MG SUPP RECTAL SCH (10:28)
[2021-07-05] MEDS: CLEVIDIPINE BUTYRATE 25 MG in EMPTY BAG 1 BAG IV SCH (10:30)
[2021-07-05] MEDS: APIXABAN 5 MG TAB PO SCH (10:41)
[2021-07-05] MEDS ORDERED: VANCOMYCIN 2,000 MG in SODIUM CHLORIDE 0.9% 500 ML 500 ML IVPB ONE (11:00)
[2021-07-05 11:40] LABS: Glucose,Whole Blood 115 mg/dL (75-99)
[2021-07-05 12:07] VITALS: BP 102/53
[2021-07-05 14:17] LABS: HCT 22.7 % (39.0-53.0); Hypochromasia Slight; MCH 34.6 pg (25.0-35.0); MCHC 37.6 g/dL (31.0-37.0); MCV 92.2 fL (80.0-100.0); Mean Platelet Volume 9.8; Platelet Count 407 k/uL (150-450); Poikilocytosis Moderate; RBC 2.46 m/uL (4.30-5.90); RDW 15.9 % (11.5-15.5)
[2021-07-05 14:18] LABS: HGB 8.5 gm/dL (13.0-17.5)
--- NOTE | 2021-07-05 14:44 | P.PN ---
Subjective Progress Note Date: 07/05/21 CHIEF COMPLAINT: COVID-19 pneumonia HISTORY OF PRESENT ILLNESS: Patient currently ICU for COVID-19 pneumonia. He is on mechanically ventilation. He is status post tracheostomy placement on 06/26/2021. PEG tube insertion was aborted. Unable to see light reflex during EGD. Patient has NG tube in place for tube feedings. Patient's condition has decompensated further. His vasopressor requirements have increased. He is sedated. FiO2 100% with PEEP of 14. Patient has had very dark bloody output t hrough NG tube he did have a drop in his hemoglobin to 5.9 this morning and required blood transfusion. Eliquis was placed back on hold. He does have positive blood cultures. Afebrile. hypotensive. WBC is up at 30.3 hemoglobin 5.9 up to 8.5 after transfusion PHYSICAL EXAM: VITAL SIGNS: Reviewed. GENERAL: Well-developed in no acute distress. HEENT: No sclera icterus. Extraocular movements grossly intact. Moist buccal mucosa. Head is atraumatic, normocephalic. Tracheostomy site clean dry and intact ABDOMEN: Soft. NEUROLOGIC: On mechanical ventilation and sedated ASSESSMENT: 1. Acute hypoxic respiratory failure secondary to COVID-19 pneumonia. Patient requiring prolonged mechanical ventilation. Status post tracheostomy placement 2. Severe protein calorie malnutrition PLAN: -Continue ICU management -Continue supportive care Physician [employer] Supervisor note has been reviewed by physician. Signing provider agrees with the documented findings, assessment, and plan of care. Objective - Vital Signs Vital signs: Vital Signs Temp 97.1 F L 07/05/21 12:06 Pulse 98 07/05/21 14:00 Resp 36 H 07/05/21 14:00 BP 102/53 07/05/21 12:06 Pulse Ox 87 L 07/05/21 14:00 Intake & Output 07/04/21 07/05/21 07/05/21 18:59 06:59 18:59 Intake Total 6994.400 8285.562 2489.577 Output Total 2009 0 1000 Balance -951.555 1363.562 1489.577 Weight 120.4 kg 128.1 kg 128.1 kg Intake: IV 253 276 184 0.9 220 240 160 Pressure bag 33 36 24 Intake, IV Titration 1230.243 6074.562 1635.577 Amount Cisatracurium 200 mg In 149.940 159.544 Sodium Chloride 0.9% 180 ml @ 1 MCG/KG/MIN 5.88 mls/hr IV .Q24H [facility] Rx#: [id number] Clevidipine Butyrate 25 0.267 mg In Empty Bag 1 bag @ 1 MG/HR 2 mls/hr IV .Q24H [facility] Rx#:[id number] Norepinephrine 8 mg In 278.434 8040.662 1186.447 Sodium Chloride 0.9% 250 ml @ 0.05 MCG/KG/MIN 9. 482 mls/hr IV .Q24H [facility] Rx#:[id number] fentaNYL (PF). 1,000 mcg 100 92.904 89.586 In Sodium Chloride 0.9% 80 ml @ 0.25 MCG/KG/HR 2. 765 mls/hr IV .Q24H [facility] Rx#:[id number] propofoL 1,000 mg In 391.279 379.996 200 Empty Bag 1 bag @ Titrate IV .Q0M [facility] Rx#: [id number] Tube Feeding 110 120 20 Blood Product 0 620 Rc As-1 Unit 310 [id number] Rc As-1 Unit 0 310 [id number] Other 90 30 Output: Gastric Drainage 1000 Urine 10 0 0 Hemodialysis 2000 0 Other: Voiding Method Indwelling Catheter Indwelling Catheter Indwelling Catheter # Voids 0 ABP, PAP, CO, CI - Last Documented Arterial Blood Pressure 87/47 - Labs CBC & Chem 7: 07/05/21 13:34 07/05/21 04:00 Labs: Abnormal Lab Results - Last 24 Hours (Table) 07/03/21 07/04/21 07/04/21 Range/Units 05:45 19:03 23:38 WBC (3.8-10.6) k/uL RBC (4.30-5.90) m/uL Hgb (13.0-17.5) gm/dL Hct (39.0-53.0) % MCHC (31.0-37.0) g/dL RDW (11.5-15.5) % Plt Count (150-450) k/uL Neutrophils # (Manual) (1.3-7.7) k/uL Lymphocytes # (Manual) (1.0-4.8) k/uL Metamyelocytes # (Man) (0) k/uL Myelocytes # (Manual) (0) k/uL Nucleated RBCs (0-0) /100 WBC ABG pH (7.35-7.45) ABG pCO2 (35-45) mmHg ABG pO2 (83-108) mmHg ABG HCO3 (21-25) mmol/L ABG Total CO2 (19-24) mmol/L ABG O2 Saturation (94-97) % BUN (9-20) mg/dL Creatinine (0.66-1.25) mg/dL Glucose (74-99) mg/dL POC Glucose (mg/dL) 134 H 146 H (75-99) mg/dL Calcium (8.4-10.2) mg/dL Alkaline Phosphatase (38-126) U/L Total Protein (6.3-8.2) g/dL Albumin (3.5-5.0) g/dL Crossmatch See Detail 07/05/21 07/05/21 07/05/21 Range/Units 04:00 04:00 05:36 WBC 26.3 H (3.8-10.6) k/uL RBC 1.74 L (4.30-5.90) m/uL Hgb 5.9 L* (13.0-17.5) gm/dL Hct 16.0 L* (39.0-53.0) % MCHC 37.1 H (31.0-37.0) g/dL RDW 17.2 H (11.5-15.5) % Plt Count 518 H (150-450) k/uL Neutrophils # (Manual) 24.40 H (1.3-7.7) k/uL Lymphocytes # (Manual) 0.53 L (1.0-4.8) k/uL Metamyelocytes # (Man) 0.26 H (0) k/uL Myelocytes # (Manual) 0.79 H (0) k/uL Nucleated RBCs 4 H (0-0) /100 WBC ABG pH 7.06 L* (7.35-7.45) ABG pCO2 94 H* (35-45) mmHg ABG pO2 69 L (83-108) mmHg ABG HCO3 26 H (21-25) mmol/L ABG Total CO2 29 H (19-24) mmol/L ABG O2 Saturation 88.8 L (94-97) % BUN 45 H (9-20) mg/dL Creatinine 2.38 H (0.66-1.25) mg/dL Glucose 120 H (74-99) mg/dL POC Glucose (mg/dL) (75-99) mg/dL Calcium 7.8 L (8.4-10.2) mg/dL Alkaline Phosphatase 129 H (38-126) U/L Total Protein 4.0 L (6.3-8.2) g/dL Albumin 1.8 L (3.5-5.0) g/dL Crossmatch 07/05/21 07/05/21 07/05/21 Range/Units 05:55 11:38 13:34 WBC 30.3 H (3.8-10.6) k/uL RBC 2.46 L (4.30-5.90) m/uL Hgb 8.5 L D (13.0-17.5) gm/dL Hct 22.7 L (39.0-53.0) % MCHC 37.6 H (31.0-37.0) g/dL RDW 15.9 H (11.5-15.5) % Plt Count (150-450) k/uL Neutrophils # (Manual) (1.3-7.7) k/uL Lymphocytes # (Manual) (1.0-4.8) k/uL Metamyelocytes # (Man) (0) k/uL Myelocytes # (Manual) (0) k/uL Nucleated RBCs (0-0) /100 WBC ABG pH (7.35-7.45) ABG pCO2 (35-45) mmHg ABG pO2 (83-108) mmHg ABG HCO3 (21-25) mmol/L ABG Total CO2 (19-24) mmol/L ABG O2 Saturation (94-97) % BUN (9-20) mg/dL Creatinine (0.66-1.25) mg/dL Glucose (74-99) mg/dL POC Glucose (mg/dL) 128 H 115 H (75-99) mg/dL Calcium (8.4-10.2) mg/dL Alkaline Phosphatase (38-126) U/L Total Protein (6.3-8.2) g/dL Albumin (3.5-5.0) g/dL Crossmatch Microbiology - Last 24 Hours (Table) 06/30/21 10:00 Fungal Culture - Final Bronchoalviolar Lavage - Left Aspergillus niger 07/04/21 12:51 Blood Culture Gram Stain - Preliminary Blood Blood Culture - Preliminary Enterococcus faecium 07/04/21 12:51 Blood Culture - Final Blood
[2021-07-05 14:57] LABS: Band Neutrophils % 5 %; Lymphocytes # (M) 0.57 k/uL (1.0-4.8); Metamyelocytes % 6 %; Monocytes # (M) 1.13 k/uL (0-1.0); Neutrophils % (M) 83 %; Nucleated Red Blood Cells 7 /100 WBC (0-0); Total Cells Counted 100; WBC 28.3 k/uL (3.8-10.6)
[2021-07-05 14:58] LABS: Polychromasia Present
[2021-07-05] MEDS: AMIODARONE 450 MG in DEXTROSE 5% IN WATER 250 ML IV SCH ×2 (15:57)
--- NOTE | 2021-07-05 16:29 | P.PN ---
<Humera Bustos - Last Filed: 07/05/21 16:20> Subjective Progress Note Date: 07/05/21 This is a 75-year-old male who was recently admitted with COVID-19 infection with acute hypoxic respiratory failure and is being closely monitored. Pulmonary following closely and patient is maintained on dexamethasone along with Lovenox and vitamin and zinc supplements. Patient currently maintained on 15 L high flow via nasal cannula with supplemental use of 15 L nonrebreather. Patient states his breathing is slightly improved and not requiring a nonrebreather as often. Instructed the patient to use incentive spirometer and increase activity as tolerated. Patient continues to be extremely weak and will have PT/OT evaluate the patient once more stable. 06/06/2021 Patient is seen in follow-up this morning states his shortness of breath has slightly worsened and his recovery time and working to breathe has become more difficult. Patient is continued on 15 L high flow along with nonrebreather intermittently and having to use it more frequently today he states. Incentive spirometer at the bedside and instructed the patient to continue to use at least 10 times every hour while awake and encouraged increased activity as tolerated. Patient states he walked to the bathroom with assistance and became extremely dy spneic. Patient is afebrile. D-dimer is 4.72 with a WBC of 16 and hemoglobin is stable at 15.4. Sodium is 138 with a potassium of 4.5 and current creatinine is 0.63. LDH is elevated at 2492 and CRP is 6.5. Chest x-ray today shows findings consistent with COVID-19 pneumonia with bilateral interstitial and airspace disease present. 06/07/2021 Patient is seen and evaluated in follow up this morning and is having increasing shortness of breath and on 15L high flow via NC and 15 L non-rebreather. Patient has been back in bed and attempting position changes frequently along with prone position. Patient continues on lovenox, baracitinib, vitamin and zinc supplements,and steroids. Pulmonary following closely. 06/10/2021 Patient is seen in follow up this morning and is now maintained on airvo at 60% and continues to be extremely dyspneic with minimal exertion. Patient also continues with 15L Non rebreather as needed. Patient is maintained on lovenox along with baricitinib and IV steroids with pulmonary following. Patient states he has no reserve and taking longer periods of time to recover with attempting to position change or use the urinal. 06/11/2021 Patient is seen in follow-up and evaluated this morning and is continued on Airvo and maintaining oxygen saturations in the low 90s. Pulmonary following closely. Patient is afebrile. Patient is continued on vitamin and zinc supplements along with Baricitinib and subcutaneous Lovenox along with IV steroids and will continue. Patient's d-dimer today is elevated at 18.25 and will increase Lovenox to 50 subcu twice daily. White blood count today is 18.6 and hemoglobin is stable at 13.7, sodium is 139 with a potassium of 4.3 current creatinine is 0.7. Inflammatory markers are elevated with some trending down and CRP is 1.5, LDH is 1968 and alk phos is 168. Patient is afebrile. Patient continues to be extremely anxious and will continue Xanax as needed. Encouraged increase activity as tolerated and continued position changes with incentive spirometer use. 06/12/2021 Patient is seen in follow-up this morning with no acute issues noted overnight. Patient continues on Airvo with a flow rate of 55 and FiO2 of 80% maintaining oxygen saturations above 90%. Pulmonary following closely and we'll continue to wean as tolerated. Patient continues on Lovenox twice daily along with vitamin and zinc supplements and continued on IV steroids along with albuterol and Baricitinib. White blood count is 23.7 with a hemoglobin of 14.1, sodium is 139 with a potassium of 4.4 and current creatinine is 0.62. Will repeat chest x-ray along with inflammatory markers in the morning. 06/13/2021 Patient is seen and evaluated in follow-up as morning and continues to be on Airvo. Patient appears to be more raspy with some sputum and congested today with a hoarse voice. Infectious disease and pulmonary following closely. Sputum culture from 06/02 just today preliminary showing gram-negative bacilli along with Essence albicans and patient is being started on IV cefepime with repeat sputum culture ordered along with oral Diflucan. White blood count is 23.5 with hemoglobin of 13.8, sodium is 137 and potassium is 5.5 and current creatinine is 0.55. LFTs are mildly elevated. Repeat d-dimer along with CRP and LDH have been ordered. Will repeat a.m. labs. Chest x-ray today shows continued peripheral and lower lung interstitial infiltrates of Covid pneumonia without significant change. 06/14/2021 Patient is seen and evaluated in follow-up this morning continues to be dyspneic and requesting to go to the bed as he has been sitting up in the chair all day. Patient has been started on Diflucan along with IV cefepime and sputum culture from 06/02/2021 resulted showing Pseudomonas aeruginosa along with Essence albicans. Infectious disease is following closely. Patient is completing Baricitinib and will be transitioned to oral prednisone taper with pulmonary following closely. Patient has been started on eliquis. D-dimer today has trended down to 11.02, LDH is 2178, CRP is 3.2, liver functions trending down. White blood count slightly trending down at 20.2 and hemoglobin is stable at 13.7, sodium is 136 with a potassium of 4.3 and current creatinine is 0.57. Continues to have a mildly raspy voice with some throat dryness and will add Cepacol. 06/15/2021 Patient evaluated in bed and is resting on the BiPAP in the intensive care unit, he had desaturated this morning will be moved to the bathroom and initially was on a 15L HF, however is now requiring BiPAP. Patient was started on a Precedex drip. Repeat chest x-ray today which revealed persistent multifocal and confluent bilateral reticulonodular opacities is consistent with known coronary infection more prominent in the lower lungs. Patient finished a course of therapy with Baricitinib and transitioned to oral prednisone. Labs reviewed today include a white blood cell count 21.2, hemoglobin of 12.5. Blood gases show a pO2 of 32 and O2 saturation of 50.3. Chloride is 110, CO2 20, sodium 137, potassium 4. LDH is worse today at 2277, alk phos 158, CRP is trending upwards of 4.6. Patient has remained afebrile, heart rate is now 83, respirations 32, blood pressure 124/68. Oxygen saturation is maintaining in the mid to high 80s on 100% BiPAP. Patient is nothing by mouth and oral medications are unable to be given. Patient is on IV cefepime for a sputum culture positive for Pseudomonas. He is IV Diflucan for oral candidiasis that was improving as of yesterday. 06/16/2021 Patient is evaluated in the intensive care unit, he is status post intubation and has NG tube in place. Labs reviewed today included white blood cell, 44.2, d-dimer greater than 34. ABGs from the A-line included a pH of 7.15, pCO2 of 71, total CO2 is 27 and oxygen saturation of 98. Bicarb is 25 and his pO2 is 107. Additional labs include a serum potassium 5.1, chloride of 109, BUN of 27, creatinine 1.06. Vital signs include a heart rate of 123 tachycardia, respiratory rate of 36, blood pressure 100/50, he is 98% oxygen saturation. Patient is on vasopressors for his blood pressure. Repeat blood cultures are negative. Patient is receiving propofol for sedation. His chest x-ray was reviewed which is showing bilateral pulmonary infiltrates demonstrating COVID- 19 pneumonia with ARDS. Patient is still getting IV cefepime for a sputum culture Pseudomonas although his pro calcitonin level is 0.03 which is not usually indicative of a bacterial infection. Additional inflammatory markers remain elevated. Patient did receive 2 L saline bolus. Repeat labs in the morning, prognosis is guarded for this patient. 06/17/2021 Patient is seen in follow-up continues to be monitored closely in the ICU with multiple medical consultations following. Prognosis is extremely guarded. Patient's respiratory status significantly worsened requiring mechanical ventilation and intubation and currently patient is sedated. White blood count is worsened at 26.1 and hemoglobin is 12.2, d-dimer is 27.06, ABG is 7.16 pH with a pCO2 of 57 and a pO2 of 68 and bicarb is 20, sodium is 140 with a potassium of 5.0 and current creatinine has worsened at 2.29 pro calcitonin is 24.40. Infectious disease along with pulmonary lab asst following closely. Patient continues on cefepime along with eliquis, vitamin and zinc supplements and patient has finished Baricitinib. Patient was on oral Decadron and is being transitioned back to IV dexamethasone along with Diflucan. Patient was given a dose of IV Lasix and nephrology has been consulted. Cardiology consulted as well and patient is currently on amiodarone drip along with Cleviprex and currently sedated on propofol. Patient also has norepinephrine drip as well. Patient being started on sodium bicarb drip. Patient also has low-grade fevers. 06/18/2021 Patient is seen in follow up in the ICU and maintained on mechanical vent intubated and sedated. Patient continues on NImbex, sodium bicarb, amiodarone, and being started on fentanyl as IV lasix drip with multiple medical consultations following. Kidney functions continue to deteriorate with nephrology following closely. Discussion being had about possible hemodialysis if kidney functions continue to worsen. Creatinine currently 3.69 today. 06/19/2021 Patient remains on mechanical vent with minimal urine output note and extensive volume overload with worsening kidney functions and would like to proceed with hemodialysis catheter placement with nephrology following closely. Multiple consultations following and Dr. Mann consulted for hemodialysis catheter placement and will hold eliquis. Amiodarone being transitioned to oral with cardiology following closely. Continue close monitoring in the ICU. Overall Prognosis remains extremely poor and guarded. 06/20/2021 Patient is seen and evaluated in follow-up continue to be closely monitored with multiple medical consultations following in the ICU. Patient remains intubated on mechanical ventilation and sedated. Kidney functions continue to worsen and patient is an extensive volume overload and has received dialysis catheter today and will initiate hemodialysis. Patient was maintained on IV Lasix drip which is being transitioned to IV push Lasix twice daily with nephrology following closely. Patient also continues on IV cefepime along with dexamethasone, vitamin and zinc supplements and continues on eliquis as well. White blood c ount 11.9 and hemoglobin is 9.6, platelets are 61 and d-dimer is 8.40. Sodium is 135 with a potassium of 5.0 and current BUN is 99 with a creatinine of 5.23. LDH is 1015 and pro calcitonin is 13.10. Prognosis remains extremely guarded. 06/21/2021 Patient is evaluated in follow up this morning and continues to be monitored closely in the ICU. On mechanical vent with an FI02 of 50%. Currently receiving hemodialysis and will likely require daily treatments if tolerated for extensive overload. Patient continues on IV lasix twice daily along with Nimbex, propofol, and fentanyl. Chest xray done today. Patient continues on IV cefepime with most recent repeat sputum culture revealing no growth. Infectious disease following closely. 06/22/2021 Patient remains intubated in the ICU, on ventilatory before meals settings, tidal volume 450, 50% FiO2, PEEP of 16, saturating 80%. ABG showing pO2 66, pCO2 42, pH 7.32, he was dialyzed for 2-1/2 L removed., He is making urine He remains sedated with propofol and he is paralyzed with Nimbex. His sputum is growing pseudomonas receiving antimicrobial therapy of cefepime, ID is following. No fever this morning, blood pressure 09/26/1939/50. Chest x-ray showing extensive bilateral airspace disease, correlate for pneumonia or ARDS. In atrial fibrillation with controlled ventricular rate 06/23/2021 Patient remains intubated on ventilatory support in the ICU, currently on assist control, 55% FiO2, PEEP of 14, TG 450. ABG this morning showing pH 7.31, pCO2 43, pO2 54, bicarb 22. O2 saturations marginal 90-91%, blood pressure stable. He remains in atrial fibrillation, with controlled ventricular rate, anticoagulated with Eliquis. Labs today show sodium 135, creatinine 4.18, WBC 12.7, hemoglobin 8.3 platelets 40. He is on IV Lasix, low urine output 270 ml yesterday Continue systemic steroids of Decadron 6 daily, eyes receiving an timicrobial therapy with cefepime, and fluconazole. sedated with fentanyl. 06/24/2021 Patient is seen and evaluated continues to be closely monitored in the ICU. Patient is currently receiving hemodialysis with an attempt of 2 L removal as the goal is 3 although patient's blood pressure is not tolerating. Nephrology and pulmonary lab asst following closely. General surgery has been consulted for possible PEG and trach tube placement. Patient continues on Cleviprex along with fentanyl and propofol, IV dexamethasone, vitamin and zinc supplements, scheduled Reglan and IV cefepime. No reported bowel movements and patient not tolerating tube feeds with a large amount of residual noted in the NG. Chest x- ray today shows interval development of pneumomediastinum is suspected with arts and progression of subcutaneous emphysema. 06/25/2021 Patient is seen this morning in follow-up continues to be closely monitored in the ICU with multiple medical consultations following. Patient did not receive hemodialysis today and plan is scheduled for tomorrow with nephrology following closely. Eliquis remains on hold as general surgery plans for tracheostomy and PEG tube placement tomorrow. Patient continues to have no bowel movement and have ordered fleets enema and will continue with bowel regimen. Chest x-ray today shows continued extensive overlying subcutaneous emphysema with pneumomediastinum and bilateral compliant reticulonodular opacities related to COVID-19 infection again noted with no significant change from previous. Patient is maintained on IV cefepime along with Cleviprex, IV dexamethasone, fentanyl and propofol, scheduled Reglan and is also being started on sodium bicarb. 06/26/2021 Patient is seen and evaluated this morning continues to be on mechanical vent and intubated and sedated being closely monitored in the ICU. Multiple medical consultations following including general surgery and plan is for tracheostomy and PEG tube placement today. Eliquis has been on hold along with tube feeds and will discuss with surgery about initiating tube feeds and resuming anticoagulant. Per nursing staff patient had small amount of blood noted at the NG tube along with patient having a bowel movement with blood noted and hemoglobin today is 7.9, platelets are 66. Patient also continues on IV cefepime along with IV dexamethasone, vitamin and zinc supplements and will continue. Patient maintained on Cleviprex along with fentanyl and propofol. Patient is scheduled to receive dialysis today with nephrology following closely. Chest x-ray today personally reviewed by me shows possible interval development of right-sided pneumothorax although pneumothorax evaluation is limited due to extensive subcutaneous emphysema present bilaterally along with worsening right lower lobe consolidation, diffuse bilateral infiltrates. Pulmonary lab asst is following closely. 06/27/2021 Patient is seen and evaluated in follow-up today status post receiving tracheostomy and continues to be sedated on the vent and currently receiving hemodialysis today. Patient continues to be closely monitored in the ICU with multiple medical consultations following. Patient continues to have extensive swelling and edema with noted subcutaneous emphysema that continues to worsen. PEG tube was also attempted by surgery and unsuccessful given the abdominal wall thickening and extensive edema noted. NG tube to be replaced and will continue tube feedings via NG. Patient did receive hemodialysis yesterday and able to tolerate approximately 2-2-1/2 L although blood pressure continued to drop and will continue with 2 L per nephrology. Patient continues on IV cefepime along with Nimbex, IV dexamethasone, fentanyl and propofol. Patient also continues on vitamin and zinc supplements and Eliquis has been resumed. 06/28/2021 Patient is evaluated this morning and continues to be in the ICU being closely monitored. Multiple medical consultations following including nephrology. Patient has been receiving daily hemodialysis as he continues to have extensive volume overload and edema noted throughout including the scrotum. Facial subcutaneous emphysema has worsened and continues to show on chest xray. Patient is also having some nasal bleeding and eliquis has been placed on hold. Blood pressure is elevated and will start Cleviprex. Patient continues on IV cefepime as well. 07/01/2021 Patient continues to be in the ICU on mechanical vent via trach and sedated. Multiple medical consultations following and patient is receiving daily hemodialysis with nephrology following closely. chest xray today shows no significant changes from previous exam. Patient is status post bronchoscopy and cultures pending. Patient is continued on cefepime and antifungals with ID following closely. Prognosis remains quite guarded. 07/02/2021 Patient is seen and evaluated continues to be closely monitored in the ICU with multiple medical consultations following. Patient is receiving daily dialysis for extensive volume overload with nephrology following closely. Pulmonary lab asst following closely as well along with surgery and patient continues to be intubated and sedated on vent via tracheostomy. Patient anticoagulant was on hold as patient was having extensive bleeding from the nasal passage with no further bleeding noted at this time and will attempt to resume Eliquis with close monitoring. Patient also continues on IV cefepime along with antifungal voriconazole with infectious disease following closely. Patient recently underwent bronchoscopy with BAL with pulmonary and awaiting for cultures are finalized. 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 Chest x-ray today shows very limited exam due to severe bilateral subcutaneous emphysema. Persistent mild pneumomediastinum is suspected with continued diffuse bilateral interstitial and airspace disease that may have slight improvement on the left, NG tube possibly needing advancement further into the stomach. 07/03/2021 Patient is seen and evaluated in follow-up this morning continues to be in the ICU in critical condition. Multiple medical consultations following including nephrology and pulmonary. Infectious disease also following and patient is maintained on voriconazole and cefepime has been discontinued. Patient continues to be sedated on propofol and fentanyl and is on norepinephrine for low blood pressure. Patient being given some sodium bicarb with dialysis today. Patient has been receiving daily dialysis as he continues to be in volume overload. Eliquis has been resumed with no obvious bleeding noted although hemoglobin found to be 6.8 today and receiving a unit of PRBC. She also continues on IV dexamethasone at 4 mg daily along with vitamin and zinc supplements and will continue. 07/04/2021 Patient is seen this morning continues to be closely monitored in the ICU. Patient receiving hemodialysis and currently with ultrafiltration only as blood pressure not tolerating and nursing staff working on increasing Levophed during dialysis. Patient's generalized edema and swelling of the face and neck have slightly improved although continues to be overloaded. patient has been receiving daily hemodialysis as tolerated. patient continues with NG tube with tube feedings and dietitian following closely and per nursing staff residuals have been high and last documented bowel movement was on 06/30. Will add daily enemas. dietitian recommending possible TPN and will discuss with lab asst. Eliquis has been resumed with no episodes of bleeding. chest x-ray showing extensive bilateral subcutaneous emphysema showing slight improvement with some possible minimal residual pneumomediastinum on the left. Diffuse bilateral interstitial and patchy airspace disease persists showing slight improvement, and consider advancing NG tube. 07/05/2021 Patient is seen and evaluated in follow-up and continues to be closely monitored in the ICU. Patient is now having what appears to be an active acute GI bleed with large amounts of melanotic drainage noted from the NG tube.. Eliquis being held and patient is being transfused 1 of 2 units of PRBC as hemoglobin was 5.9 this morning. Patient's blood pressure is low and maxed out on Levophed at this time. Patient is currently receiving hemodialysis for ultrafiltration. Family at the bedside and discussed in detail with the treatment plan moving forward and extremely poor and guarded prognosis and family has proceeded to change the CODE STATUS to no code. Discussed with the family about comfort measures in overall prognosis and they will discuss it with other family members and come up with the decision of comfort measures. infectious disease following closely and IV antibiotics have been transitioned to daptomycin and continued on antifungals. blood cultures are positive for enterococcus. Labs: Sodium is 142, potassium is 4.1, BUN 46, creatinine is 2.38, WBC 26.3, hemoglobin is 5.9, platelets 518, ABG pH is 7.06 with a pCO2 of 94, pO2 is 69, bicarb is 26, total CO2 is 29 and O2 saturation is 88.8 Review of systems: Unable to complete a full review of symptoms as patient is sedated and on a ventilator via recent tracheostomy placement. Active Medications Acetaminophen (Acetaminophen Tab 325 Mg Tab) 650 mg PO Q6HR PRN PRN Reason: Fever and/ or Mild Pain Last Admin: 06/14/21 22:22 Dose: 650 mg Documented by: Albuterol Sulfate (Albuterol Hfa Inhaler) 2 puff INHALATION RT-QID [facility] Last Admin: 07/05/21 11:34 Dose: 2 puff Documented by: Albuterol Sulfate (Albuterol Hfa Inhaler) 2 puff INHALATION RT-QID PRN PRN Reason: Shortness Of Breath Or Wheezing Last Admin: 06/15/21 03:30 Dose: 2 puff Documented by: Amiodarone HCl (Amiodarone 200 Mg Tab) 200 mg PO BID [facility] Last Admin: 07/05/21 09:14 Dose: Not Given Documented by: Artificial Tears (Artificial Tears-Hypromellose Drops 15 Ml Btl) 2 drops BOTH EYES Q4HR [facility] Last Admin: 07/05/21 13:29 Dose: 2 drops Documented by: Ascorbic Acid (Ascorbic Acid 500 Mg Tab) 500 mg PO DAILY [facility] Last Admin: 07/05/21 08:32 Dose: 500 mg Documented by: Bisacodyl (Bisacodyl 10 Mg Supp) 10 mg RECTAL DAILY [facility] Last Admin: 07/05/21 10:28 Dose: Not Given Documented by: Calcium Acetate (Calcium Acetate 667 Mg Tab) 667 mg PO TID-W/MEALS [facility] Last Admin: 07/05/21 11:52 Dose: Not Given Documented by: Chlorhexidine Gluconate (Chlorhexidine Gluconate 15 Ml Cup) 15 ml MUCOUS MEM BID [facility] Last Admin: 07/05/21 08:31 Dose: 15 ml Documented by: Cholecalciferol (Cholecalciferol 25 Mcg (1000 Iu) Tablet) 25 mcg PO DAILY [facility] Last Admin: 07/05/21 08:32 Dose: 25 mcg Documented by: Cyanocobalamin (Cyanocobalamin 500 Mcg Tab) 1,000 mcg PO DAILY [facility] Last Admin: 07/05/21 08:32 Dose: 1,000 mcg Documented by: Darbepoetin Shalom (Darbepoetin Shalom 40 Mcg/0.4 Ml Syringe) 40 mcg SQ Q7D [facility] Last Admin: 07/04/21 17:27 Dose: 40 mcg Documented by: Propofol 1,000 mg/ IV Solution 100 mls @ 0 mls/hr IV .Q0M [facility]; Protocol Last Admin: 07/05/21 14:49 Dose: 45 mcg/kg/min, 32.238 mls/hr Documented by: Norepinephrine Bitartrate 8 mg (/ Sodium Chloride) 258 mls @ 9.482 mls/hr IV .Q24H [facility]; Protocol Last Admin: 07/05/21 14:45 Dose: 1 mcg/kg/min, 189.63 mls/hr Documented by: Cisatracurium Besylate 200 mg/ (Sodium Chloride) 200 mls @ 5.88 mls/hr IV .Q24H [facility]; Protocol Last Admin: 07/05/21 07:12 Dose: 2 mcg/kg/min, 11.76 mls/hr Documented by: Fentanyl Citrate 1,000 mcg/ (Sodium Chloride) 100 mls @ 2.765 mls/hr IV .Q24H [facility]; Protocol Last Admin: 07/05/21 13:48 Dose: 0.6 mcg/kg/hr, 6.636 mls/hr Documented by: Clevidipine 25 mg/ IV Solution 50 mls @ 2 mls/hr IV .Q24H [facility]; Protocol Last Admin: 07/05/21 10:30 Dose: Not Given Documented by: Voriconazole 300 mg/ Sodium (Chloride) 100 mls @ 125 mls/hr IVPB Q12H [facility] Last Admin: 07/05/21 15:56 Dose: 125 mls/hr Documented by: Daptomycin 1,200 mg/ Sodium (Chloride) 50 mls @ 100 mls/hr IVPB Q48H [facility] Last Admin: 07/05/21 14:49 Dose: 100 mls/hr Documented by: Metoclopramide HCl (Metoclopramide 5 Mg/Ml 2 Ml Vial) 5 mg IVP Q8H [facility] Last Admin: 07/05/21 11:51 Dose: 5 mg Documented by: Metoprolol Tartrate (Metoprolol Tartrate 25 Mg Tab) 25 mg PO DAILY [facility] Last Admin: 07/05/21 09:14 Dose: Not Given Documented by: Pantoprazole Sodium (Pantoprazole 40 Mg/10 Ml Vial) 40 mg IVP BID [facility] Last Admin: 07/05/21 08:31 Dose: 40 mg Documented by: Senna/Docusate Sodium (Sennosides-Docusate Sodium 1 Each Tab) 1 each PO DAILY [facility] Last Admin: 07/05/21 08:31 Dose: 1 each Documented by: Zinc Sulfate (Zinc Sulfate 220 Mg Cap) 220 mg PO DAILY [facility] Last Admin: 07/05/21 08:32 Dose: 220 mg Documented by: Physical exam: Gen: This is a 75-year-old male sedated and intubated on propofol and mechanical ventilation. Extensive edema and swelling noted throughout with some mild improvement of swelling noted on the face. HEENT: Head is atraumatic, normocephalic. Pupils equal, round. Sclerae is anicteric. NG tube noted with large amounts of melanotic drainage noted NECK: Supple. No JVD. No lymphadenopathy. No thyromegaly. Extensive subcutaneous emphysema of the face and neck traveling down the arms and continues in the chest that is slightly improved LUNGS: Diminished breath sounds bilaterally with scattered coarse rhonchi and crackles noted at the bases. Extensive subcutaneous emphysema persists HEART: Irregular S1, S2 are muffled ABDOMEN: Soft. Edematous. obese. Hypoactive Bowel sounds are sluggish. No masses. No guarding or rigidity noted. EXTREMITIES: Extensive pitting edema noted of upper and lower bilateral extremities and much of the body. 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 Extensive Subcutaneous emphysema with pneumomediastinum as noted on x-ray acute renal failure likely ATN with worsening kidney functions and minimal urine output requiring hemodialysis volume overload secondary to ARF metabolic acidosis afib with RVR currently rate controlled on oral amiodarone and metoprolol Lactic acidosis secondary to above Initial sputum culture showing Essence albicans and pseudomonas aeruginosa and maintained on IV cefepime repeat sputum culture showing aspergillus not fumigatus Oral candidiasis, sputum cultures from 06/02/2021 Essence albicans Extensive interstitial bilateral COVID-19 pneumonia Elevated white blood count possibly secondary to above Possible subsegmental pulmonary embolism ruled out History of atrial fibrillation Anxiety Remote history of nicotine dependence GI prophylaxis: Protonix DVT prophylaxis: hOlding eliquis for GI bleed Full code Plan: Recommend to continue with current medications and continue to closely monitor in the ICU. Patient remains on mechanical ventilation and intubated. IV antibiotics switched to daptomycin his blood cultures are positive for enterococcus and infectious disease is following closely. Patient continues antifungals. Hemoglobin 5.9 and currently receiving 2 units of PRBCs and continued ultrafiltration of hemo-dialysis again today. Patient is maxed out on Levophed and continues to have low blood pressures and acute GI bleed and will hold anticoagulant. Lengthy discussion was had with the family at the bedside about CODE STATUS and family has proceeded with no code and discussed the options of comfort measures and extremely poor and guarded prognosis. Family would like to discuss further with other family members and decide on comfort measures. clinical status continues to deteriorate and again, Prognosis is ex tremely poor and guarded and will continue to monitor closely. Objective - Vital Signs Vital signs: Vital Signs Temp 97.1 F L 07/05/21 12:06 Pulse 100 07/05/21 15:00 Resp 36 H 07/05/21 15:00 BP 102/53 07/05/21 12:06 Pulse Ox 86 L 07/05/21 15:00 Intake & Output 07/04/21 07/05/21 07/05/21 18:59 06:59 18:59 Intake Total 4708.544 4028.562 3148.952 Output Total 2009 0 1000 Balance -624.649 3326.562 2148.952 Weight 120.4 kg 128.1 kg 128.1 kg Intake: IV 253 276 257 0.9 220 240 180 DAPTOmycin 1,200 mg In 50 Sodium Chloride 0.9% 50 ml @ 100 mls/hr IVPB Q48H [facility] Rx#:[id number] Pressure bag 33 36 27 Intake, IV Titration 5848.367 4814.562 2221.952 Amount Amiodarone 450 mg In 250 Dextrose 5% in Water 250 ml @ 0.5 MG/MIN 16.667 mls/hr IV .Q15H [facility] Rx#: [id number] Cisatracurium 200 mg In 149.940 159.544 Sodium Chloride 0.9% 180 ml @ 1 MCG/KG/MIN 5.88 mls/hr IV .Q24H [facility] Rx#: [id number] Clevidipine Butyrate 25 0.267 mg In Empty Bag 1 bag @ 1 MG/HR 2 mls/hr IV .Q24H [facility] Rx#:[id number] Norepinephrine 8 mg In 627.857 0864.662 1426.645 Sodium Chloride 0.9% 250 ml @ 0.05 MCG/KG/MIN 9. 482 mls/hr IV .Q24H [facility] Rx#:[id number] fentaNYL (PF). 1,000 mcg 100 92.904 89.586 In Sodium Chloride 0.9% 80 ml @ 0.25 MCG/KG/HR 2. 765 mls/hr IV .Q24H [facility] Rx#:[id number] propofoL 1,000 mg In 391.279 379.996 296.177 Empty Bag 1 bag @ Titrate IV .Q0M [facility] Rx#: [id number] Tube Feeding 110 120 20 Blood Product 0 620 Rc As-1 Unit 310 [id number] Rc As-1 Unit 0 310 [id number] Other 90 30 Output: Gastric Drainage 1000 Urine 10 0 0 Hemodialysis 2000 0 Other: Voiding Method Indwelling Catheter Indwelling Catheter Indwelling Catheter # Voids 0 ABP, PAP, CO, CI - Last Documented Arterial Blood Pressure 86/46 - Labs CBC & Chem 7: 07/05/21 13:34 07/05/21 04:00 Labs: Abnormal Lab Results - Last 24 Hours (Table) 07/03/21 07/04/21 07/04/21 Range/Units 05:45 19:03 23:38 WBC (3.8-10.6) k/uL RBC (4.30-5.90) m/uL Hgb (13.0-17.5) gm/dL Hct (39.0-53.0) % MCHC (31.0-37.0) g/dL RDW (11.5-15.5) % Plt Count (150-450) k/uL Neutrophils # (Manual) (1.3-7.7) k/uL Lymphocytes # (Manual) (1.0-4.8) k/uL Monocytes # (Manual) (0-1.0) k/uL Metamyelocytes # (Man) (0) k/uL Myelocytes # (Manual) (0) k/uL Nucleated RBCs (0-0) /100 WBC ABG pH (7.35-7.45) ABG pCO2 (35-45) mmHg ABG pO2 (83-108) mmHg ABG HCO3 (21-25) mmol/L ABG Total CO2 (19-24) mmol/L ABG O2 Saturation (94-97) % BUN (9-20) mg/dL Creatinine (0.66-1.25) mg/dL Glucose (74-99) mg/dL POC Glucose (mg/dL) 134 H 146 H (75-99) mg/dL Calcium (8.4-10.2) mg/dL Alkaline Phosphatase (38-126) U/L Total Protein (6.3-8.2) g/dL Albumin (3.5-5.0) g/dL Crossmatch See Detail 07/05/21 07/05/21 07/05/21 Range/Units 04:00 04:00 05:36 WBC 26.3 H (3.8-10.6) k/uL RBC 1.74 L (4.30-5.90) m/uL Hgb 5.9 L* (13.0-17.5) gm/dL Hct 16.0 L* (39.0-53.0) % MCHC 37.1 H (31.0-37.0) g/dL RDW 17.2 H (11.5-15.5) % Plt Count 518 H (150-450) k/uL Neutrophils # (Manual) 24.40 H (1.3-7.7) k/uL Lymphocytes # (Manual) 0.53 L (1.0-4.8) k/uL Monocytes # (Manual) (0-1.0) k/uL Metamyelocytes # (Man) 0.26 H (0) k/uL Myelocytes # (Manual) 0.79 H (0) k/uL Nucleated RBCs 4 H (0-0) /100 WBC ABG pH 7.06 L* (7.35-7.45) ABG pCO2 94 H* (35-45) mmHg ABG pO2 69 L (83-108) mmHg ABG HCO3 26 H (21-25) mmol/L ABG Total CO2 29 H (19-24) mmol/L ABG O2 Saturation 88.8 L (94-97) % BUN 45 H (9-20) mg/dL Creatinine 2.38 H (0.66-1.25) mg/dL Glucose 120 H (74-99) mg/dL POC Glucose (mg/dL) (75-99) mg/dL Calcium 7.8 L (8.4-10.2) mg/dL Alkaline Phosphatase 129 H (38-126) U/L Total Protein 4.0 L (6.3-8.2) g/dL Albumin 1.8 L (3.5-5.0) g/dL Crossmatch 07/05/21 07/05/21 07/05/21 Range/Units 05:55 11:38 13:34 WBC 28.3 H (3.8-10.6) k/uL RBC 2.46 L (4.30-5.90) m/uL Hgb 8.5 L D (13.0-17.5) gm/dL Hct 22.7 L (39.0-53.0) % MCHC 37.6 H (31.0-37.0) g/dL RDW 15.9 H (11.5-15.5) % Plt Count (150-450) k/uL Neutrophils # (Manual) 24.90 H (1.3-7.7) k/uL Lymphocytes # (Manual) 0.57 L (1.0-4.8) k/uL Monocytes # (Manual) 1.13 H (0-1.0) k/uL Metamyelocytes # (Man) 1.70 H (0) k/uL Myelocytes # (Manual) (0) k/uL Nucleated RBCs 7 H (0-0) /100 WBC ABG pH (7.35-7.45) ABG pCO2 (35-45) mmHg ABG pO2 (83-108) mmHg ABG HCO3 (21-25) mmol/L ABG Total CO2 (19-24) mmol/L ABG O2 Saturation (94-97) % BUN (9-20) mg/dL Creatinine (0.66-1.25) mg/dL Glucose (74-99) mg/dL POC Glucose (mg/dL) 128 H 115 H (75-99) mg/dL Calcium (8.4-10.2) mg/dL Alkaline Phosphatase (38-126) U/L Total Protein (6.3-8.2) g/dL Albumin (3.5-5.0) g/dL Crossmatch Microbiology - Last 24 Hours (Table) 07/04/21 12:51 Blood Culture - Preliminary Blood No Growth after 24 hours 06/30/21 10:00 Fungal Culture - Final Bronchoalviolar Lavage - Left Aspergillus niger 07/04/21 12:51 Blood Culture Gram Stain - Preliminary Blood Blood Culture - Preliminary Enterococcus faecium 07/04/21 12:51 Blood Culture - Final Blood <Brian Cabello E - Last Filed: 07/05/21 23:39> Subjective Please consider this note as discharge summary I have discussed the plan and I have reviewed the notes with [employer] Humera and I agree with it except was mentioned below Patient is seen and examined by me at bedside After grounding family decided to make the patient comfort care and he today at 19:40 refer to alf for more detail place Objective - Vital Signs Vital signs: Vital Signs Temp 97.3 F L 07/05/21 16:30 Pulse 108 H 07/05/21 19:00 Resp 36 H 07/05/21 19:00 BP 102/53 07/05/21 12:06 Pulse Ox 83 L 07/05/21 19:00 Intake & Output 07/05/21 07/05/21 07/06/21 06:59 18:59 06:59 Intake Total 2463.562 3925.293 166.276 Output Total 0 1010 0 Balance 2463.562 2915.293 166.276 Weight 128.1 kg 128.1 kg Intake: IV 276 426 23 0.9 240 240 20 DAPTOmycin 1,200 mg In 50 Sodium Chloride 0.9% 50 ml @ 100 mls/hr IVPB Q48H [facility] Rx#:[id number] Pressure bag 36 36 3 Voriconazole 300 mg In 100 Sodium Chloride 0.9% 100 ml @ 125 mls/hr IVPB Q12HR [facility] Rx#:[id number] Intake, IV Titration 5505.867 3004.293 143.276 Amount Amiodarone 450 mg In 250 Dextrose 5% in Water 250 ml @ 0.5 MG/MIN 16.667 mls/hr IV .Q15H [facility] Rx#: [id number] Cisatracurium 200 mg In 159.544 143.276 Sodium Chloride 0.9% 180 ml @ 1 MCG/KG/MIN 5.88 mls/hr IV .Q24H [facility] Rx#: [id number] Norepinephrine 8 mg In 2281.753 7626.645 Sodium Chloride 0.9% 250 ml @ 0.05 MCG/KG/MIN 9. 482 mls/hr IV .Q24H [facility] Rx#:[id number] fentaNYL (PF). 1,000 mcg 92.904 89.586 In Sodium Chloride 0.9% 80 ml @ 0.25 MCG/KG/HR 2. 765 mls/hr IV .Q24H [facility] Rx#:[id number] propofoL 1,000 mg In 379.996 387.518 Empty Bag 1 bag @ Titrate IV .Q0M [facility] Rx#: [id number] Tube Feeding 120 20 Blood Product 0 620 Rc As-1 Unit 310 [id number] Rc As-1 Unit 0 310 [id number] Other 90 30 Output: Gastric Drainage 1000 Urine 0 10 0 Hemodialysis 0 Other: Voiding Method Indwelling Catheter Indwelling Catheter # Voids 0 ABP, PAP, CO, CI - Last Documented Arterial Blood Pressure 68/35 - Labs CBC & Chem 7: 07/05/21 13:34 07/05/21 04:00 Labs: Abnormal Lab Results - Last 24 Hours (Table) 07/03/21 07/04/21 07/05/21 Range/Units 05:45 23:38 04:00 WBC 26.3 H (3.8-10.6) k/uL RBC 1.74 L (4.30-5.90) m/uL Hgb 5.9 L* (13.0-17.5) gm/dL Hct 16.0 L* (39.0-53.0) % MCHC 37.1 H (31.0-37.0) g/dL RDW 17.2 H (11.5-15.5) % Plt Count 518 H (150-450) k/uL Neutrophils # (Manual) 24.40 H (1.3-7.7) k/uL Lymphocytes # (Manual) 0.53 L (1.0-4.8) k/uL Monocytes # (Manual) (0-1.0) k/uL Metamyelocytes # (Man) 0.26 H (0) k/uL Myelocytes # (Manual) 0.79 H (0) k/uL Nucleated RBCs 4 H (0-0) /100 WBC ABG pH (7.35-7.45) ABG pCO2 (35-45) mmHg ABG pO2 (83-108) mmHg ABG HCO3 (21-25) mmol/L ABG Total CO2 (19-24) mmol/L ABG O2 Saturation (94-97) % BUN (9-20) mg/dL Creatinine (0.66-1.25) mg/dL Glucose (74-99) mg/dL POC Glucose (mg/dL) 146 H (75-99) mg/dL Calcium (8.4-10.2) mg/dL Alkaline Phosphatase (38-126) U/L Total Protein (6.3-8.2) g/dL Albumin (3.5-5.0) g/dL Crossmatch See Detail 07/05/21 07/05/21 07/05/21 Range/Units 04:00 05:36 05:55 WBC (3.8-10.6) k/uL RBC (4.30-5.90) m/uL Hgb (13.0-17.5) gm/dL Hct (39.0-53.0) % MCHC (31.0-37.0) g/dL RDW (11.5-15.5) % Plt Count (150-450) k/uL Neutrophils # (Manual) (1.3-7.7) k/uL Lymphocytes # (Manual) (1.0-4.8) k/uL Monocytes # (Manual) (0-1.0) k/uL Metamyelocytes # (Man) (0) k/uL Myelocytes # (Manual) (0) k/uL Nucleated RBCs (0-0) /100 WBC ABG pH 7.06 L* (7.35-7.45) ABG pCO2 94 H* (35-45) mmHg ABG pO2 69 L (83-108) mmHg ABG HCO3 26 H (21-25) mmol/L ABG Total CO2 29 H (19-24) mmol/L ABG O2 Saturation 88.8 L (94-97) % BUN 45 H (9-20) mg/dL Creatinine 2.38 H (0.66-1.25) mg/dL Glucose 120 H (74-99) mg/dL POC Glucose (mg/dL) 128 H (75-99) mg/dL Calcium 7.8 L (8.4-10.2) mg/dL Alkaline Phosphatase 129 H (38-126) U/L Total Protein 4.0 L (6.3-8.2) g/dL Albumin 1.8 L (3.5-5.0) g/dL Crossmatch 07/05/21 07/05/21 07/05/21 Range/Units 11:38 13:34 18:28 WBC 28.3 H (3.8-10.6) k/uL RBC 2.46 L (4.30-5.90) m/uL Hgb 8.5 L D (13.0-17.5) gm/dL Hct 22.7 L (39.0-53.0) % MCHC 37.6 H (31.0-37.0) g/dL RDW 15.9 H (11.5-15.5) % Plt Count (150-450) k/uL Neutrophils # (Manual) 24.90 H (1.3-7.7) k/uL Lymphocytes # (Manual) 0.57 L (1.0-4.8) k/uL Monocytes # (Manual) 1.13 H (0-1.0) k/uL Metamyelocytes # (Man) 1.70 H (0) k/uL Myelocytes # (Manual) (0) k/uL Nucleated RBCs 7 H (0-0) /100 WBC ABG pH (7.35-7.45) ABG pCO2 (35-45) mmHg ABG pO2 (83-108) mmHg ABG HCO3 (21-25) mmol/L ABG Total CO2 (19-24) mmol/L ABG O2 Saturation (94-97) % BUN (9-20) mg/dL Creatinine (0.66-1.25) mg/dL Glucose (74-99) mg/dL POC Glucose (mg/dL) 115 H 101 H (75-99) mg/dL Calcium (8.4-10.2) mg/dL Alkaline Phosphatase (38-126) U/L Total Protein (6.3-8.2) g/dL Albumin (3.5-5.0) g/dL Crossmatch Microbiology - Last 24 Hours (Table) 07/04/21 12:51 Blood Culture - Preliminary Blood No Growth after 24 hours 06/30/21 10:00 Fungal Culture - Final Bronchoalviolar Lavage - Left Aspergillus niger 07/04/21 12:51 Blood Culture Gram Stain - Preliminary Blood Blood Culture - Preliminary Enterococcus faecium 07/04/21 12:51 Blood Culture - Final Blood
[2021-07-05 17:02] VITALS: TEMP 97.3
--- NOTE | 2021-07-05 17:11 | PN ---
PROGRESS NOTE DATE OF SERVICE: 07/05/2021 REASON FOR FOLLOWUP: Pneumonia. INTERVAL HISTORY: The patient is afebrile. The patient is currently hypotensive and is on 100% FiO2, still hypoxic. No significant purulent secretions through the ET, diarrhea or any other changed reported by the nursing staff. PHYSICAL EXAMINATION: Blood pressure is 75/38, pulse 101, temperature 97.1. He is % on 100% FiO2. General description is an elderly male lying in bed in no distress. RESPIRATORY SYSTEM: Unlabored breathing. Decreased intensity of breath sounds. HEART: S1, S2. Regular rate and rhythm. ABDOMEN: Soft. No tenderness. LABS: Hemoglobin 8.5, white count 28.3. Creatinine is 2.38. Blood culture now showing Enterococcus faecium. DIAGNOSTIC IMPRESSION AND PLAN: 1. Patient with pneumonia with initial diagnosis of COVID-19 followed by Pseudomonas, now concerning for aspergillus, covered with voriconazole. 2. Patient with Enterococcus faecium bacteremia; could be related to his dialysis catheter. Patient will be started on daptomycin; to continue. Overall prognosis remains guarded. Family at the bedside. Their questions were answered. MMODL / IJN: [id number] /
[2021-07-05 18:29] LABS: Glucose,Whole Blood 101 mg/dL (75-99)
[2021-07-05 19:04] VITALS: PULSE 108
[2021-07-05] MEDS ORDERED: ATROPINE OPHTH SOLN 1% 5ML BTL SUBLINGUAL PRN (19:16)
[2021-07-05] MEDS ORDERED: MORPHINE SULFATE 2 MG/ML SYRINGE IV PRN (19:16)
[2021-07-05] MEDS ORDERED: MORPHINE SULFATE 4 MG/ML SYRINGE IV PRN (19:16)
[2021-07-05] MEDS ORDERED: ONDANSETRON 4 MG/2 ML VIAL IVP PRN (19:16)
[2021-07-05] MEDS ORDERED: LORazepam 2 MG/ML INJ IV PRN (19:16)
[2021-07-05] MEDS ORDERED: MORPHINE SULFATE (100 MG/2 ML) 100 MG in SODIUM CHLORIDE 0.9% 100 ML IV SCH (19:30)
[2021-07-05] MEDS ORDERED: SCOPOLAMINE 1.5MG/72HR PATCH TRANSDERM SCH (19:30)
--- NOTE | 2021-07-05 19:32 | PN ---
PROGRESS NOTE Patient is seen for followup for acute kidney injury. The patient did not tolerate hemodialysis this morning. His blood pressure dropped into the 50s and 60s and he was taken off. Family is present at bedside. Code status has been readdressed. Plans for possible comfort care measures depending on how the patient does today. Case is discussed with nursing staff. He is not examined. Vital signs are reviewed. Blood pressure has been ranging from 80-60 mmHg, currently on maximum dose of pressors. FiO2 has been at 100%. There is significant edema with third spacing and severe scrotal edema present. The patient remains on the vent, he is sedated. LABS: Reviewed. PH was 7.06, pCO2 of 94, hemoglobin 8.5 g/dL, sodium 142, potassium 4.0. ASSESSMENT: 1. Acute oliguric renal failure, ATN, secondary to COVID pneumonia and hypotension, hemodialysis dependent. Patient is being dialyzed on a daily basis, however, he did not tolerate dialysis today and he was taken off mostly due to persistent hypotension with systolic blood pressure in the 60s and 50s on maximum dose pressors. The patient will not be dialyzed at this point. 2. Septic shock secondary to pneumonia with COVID pneumonia and superimposed bacterial and fungal infection with sputum cultures growing Aspergillus and Pseudomonas. The patient also has Enterococcus bacteremia. 3. Metabolic acidosis. 4. Anemia associated with GI bleed. 5. Hyperphosphatemia. PLAN: Overall prognosis is very poor. Hold off on dialysis for now as patient is not hemodynamically stable. MMODL / IJN: [id number] /
--- NOTE | 2021-07-05 23:39 | P.DS ---
Providers Date of admission: 06/02/21 15:55 Attending physician: Noemi Price MD Consults: 06/02/21 15:12 Consult Physician Routine Consulting Provider: Xavier Santana Consult Reason/Comments: COVID +, hypoxic Do you want consulting provider notified?: Yes 06/04/21 23:34 Consult Physician Routine Consulting Provider: Maria L Nation Consult Reason/Comments: possible remdeseveir Do you want consulting provider notified?: Yes 06/17/21 10:34 Consult Physician Urgent Consulting Provider: Swathi Rizzo Consult Reason/Comments: increasing CR;decreased UO Do you want consulting provider notified?: Yes 06/17/21 10:35 Consult Physician Routine Consulting Provider: Fidel Ruby Consult Reason/Comments: afib rvr Do you want consulting provider notified?: Yes 06/19/21 11:22 Consult Physician Urgent Consulting Provider: Mynor Mann Consult Reason/Comments: hemodialysis catheter Do you want consulting provider notified?: Yes 06/23/21 09:58 Consult Physician Routine Consulting Provider: Jimi Padilla Consult Reason/Comments: COVID 19, trach and peg placement Do you want consulting provider notified?: Yes Primary care physician: Александр Wagner MD Hospital Course: Please refer to progress note from today for more details Plan - Discharge Summary Discharge Rx Participant: No New Discharge Prescriptions: No Action RX: Zinc 100 mg PO DAILY Calcium/Magnesium/Zinc [Hakzmma-Qcftppkvl-Bfwk Tablet] 1 tab PO DAILY Cholecalciferol [Vitamin D3 (25 Mcg = 1000 Iu)] 25 mcg PO DAILY Metoprolol Succinate (ER) [Toprol Xl] 25 mg PO DAILY Cyanocobalamin (Vitamin B-12) [Vitamin B-12] 1,000 mcg PO DAILY Vit C/E/Zn/Coppr/Lutein/Zeaxan [Preservision Areds 2 Softgel] 1 cap PO BID Ascorbic Acid [Vitamin C] 500 mg PO DAILY Ondansetron Odt [Zofran Odt] 8 mg PO Q8HR PRN PRN Reason: Nausea And Vomiting RX: Loratadine 10 mg PO DAILY Aspirin EC [Ecotrin Low Dose] 81 mg PO DAILY RX: Doxycycline Hyclate 100 mg PO BID RX: Dexamethasone 6 mg PO DAILY Super Beta Prostate 1 tab PO BID RX: Albuterol Sulfate [Albuterol Sulfate Hfa] 2 puff INHALATION RT-Q4H PRN PRN Reason: Shortness Of Breath Discharge Medication List Ascorbic Acid [Vitamin C] 500 mg PO DAILY 06/02/21 [History] Aspirin EC [Ecotrin Low Dose] 81 mg PO DAILY 06/02/21 [History] Calcium/Magnesium/Zinc [Vnxtwnm-Ekpfasauy-Lcif Tablet] 1 tab PO DAILY 06/02/21 [History] Cholecalciferol [Vitamin D3 (25 Mcg = 1000 Iu)] 25 mcg PO DAILY 06/02/21 [History] Cyanocobalamin (Vitamin B-12) [Vitamin B-12] 1,000 mcg PO DAILY 06/02/21 [History] Metoprolol Succinate (ER) [Toprol Xl] 25 mg PO DAILY 06/02/21 [History] Ondansetron Odt [Zofran Odt] 8 mg PO Q8HR PRN 06/02/21 [History] RX: Albuterol Sulfate [Albuterol Sulfate Hfa] 2 puff INHALATION RT-Q4H PRN 06/02/21 [History] RX: Dexamethasone 6 mg PO DAILY 06/02/21 [History] RX: Doxycycline Hyclate 100 mg PO BID 06/02/21 [History] RX: Loratadine 10 mg PO DAILY 06/02/21 [History] RX: Zinc 100 mg PO DAILY 06/02/21 [History] Super Beta Prostate 1 tab PO BID 06/02/21 [History] Vit C/E/Zn/Coppr/Lutein/Zeaxan [Preservision Areds 2 Softgel] 1 cap PO BID 06/02/21 [History] Follow up Appointment(s)/Referral(s): Александр Wagner MD [Primary Care Provider] - 1-2 days Patient Instructions/Handouts: Coronavirus Disease 2019 (COVID-19), Using Oxygen at Home (DC)
[2021-07-06] MEDS ORDERED: VANCOMYCIN 2,000 MG in SODIUM CHLORIDE 0.9% 500 ML 500 ML IVPB ONE (09:00)
--- NOTE | 2021-07-15 06:32 | CDI ---
Documentation Clarification Form Date: 07/15/21 From: Kayy Wu Admit Date: 06/02/2021 03:55:00 PM Patient Name: Steven Whatley Visit Number: [id number] Discharge Date: 07/05/2021 07:40:00 PM ATTENTION: The Clinical Documentation Specialists (CDI) and [facility] Coding Staff appreciate your assistance in clarifying documentation. Please respond to the clarification below the line at the bottom and electronically sign. The CDI & [facility] Coding staff will review the response and follow-up if needed. Please note: Queries are made part of the Legal Health Record. If you have any questions, please contact the author of this message via ITS. Dr. Torres E Sheet, Pulmonary hypertension is documented in Dr Tolentino's 06/03 PN and in the ECHO from 06/04. Additional clarification regarding the etiology/cause of this symptom is requested. Covid 19 infection and acute Covid 19 interstitial pneumonia. The patient also hypoxemia and had extreme shortness of breath. Echo: Left ventricular systolic function is normal with EF between 55-60%. No evidence of aortic stenosis. Mitral valve is normal. Mild mitral regurgitation is present. Moderate tricuspid regurgitation present. Moderate pulmonary hypertension. The right ventricular systolic pressure as measured by Doppler, is 58.54 mmHg. No pulmonic regurgitation. Treatment: Lovenox, IV antibiotics, IV bronchodilators Please clarify the cause of pulmonary hypertension: [ ] Pulmonary hypertension is due to [ ] Pulmonary hypertension unknown cause [ ] Other explanation of clinical findings (please specify) [ ] Unable to determine (no explanation for clinical findings) Unable to determine MTDD
--- NOTE | 2021-07-15 06:44 | CDI ---
Documentation Clarification Form Date: 07/15/21 From: Kayy Wu Admit Date: 06/02/2021 03:55:00 PM Patient Name: Steven Whatley Visit Number: [id number] Discharge Date: 07/05/2021 07:40:00 PM ATTENTION: The Clinical Documentation Specialists (CDI) and [facility] Coding Staff appreciate your assistance in clarifying documentation. Please respond to the clarification below the line at the bottom and electronically sign. The CDI & [facility] Coding staff will review the response and follow-up if needed. Please note: Queries are made part of the Legal Health Record. If you have any questions, please contact the author of this message via ITS. Dr. Brian Cabello, Chronic renal failure is documented by Dr Mann in his consult and op note, but is not noted in subsequent documentation. Clarification is requested. History/Risk Factors: HX of atrial fibrillation, BPH Clinical Indicators: Acute oliguric renal failure, ATN, secondary to Covid pneumonia and hypotension, hemodialysis dependent. Treatment: Hemodialysis catheter placed and subsequent dialysis Please clarify if the CKD is: [ ] CKD Stage 1 (GFR > 90) [ ] CKD Stage 2 (GFR 60-89) [ ] CKD Stage 3 (GFR 30-59) [ ] CKD Stage 3a (GFR 45-59) [ ] CKD Stage 3b (GFR 30-44) [ ] CKD Stage 4 (GFR 15-29) [ ] CKD Stage 5 (GFR <15) [ ] ESRD [ ] CKD ruled out [ ] Other condition, please specify [ ] Unable to determine acute renal failure MTDD
== END 2021-07-05 19:40 | disposition expired | DRG 4 ==
LOC: EC 13:40 → 4SSUR 15:55 → 2SICU 06-15 06:04
PROVIDERS: ADMIT Internal Medicine; ATTEND Internal Medicine
PROC: 5A0955A Assistance with Respiratory Ventilation, Greater than 96 Consecutive Hours, High Flow/Velocity Cannula (ICD-10-PCS; 2021-06-03)
PROC: XW0DXM6 Introduction of Baricitinib into Mouth and Pharynx, External Approach, New Technology Group 6 (ICD-10-PCS; 2021-06-04)
PROC: 0D9670Z Drainage of Stomach with Drainage Device, Via Natural or Artificial Opening (ICD-10-PCS; 2021-06-15)
PROC: 0BH17EZ Insertion of Endotracheal Airway into Trachea, Via Natural or Artificial Opening (ICD-10-PCS; 2021-06-15)
PROC: 02HV33Z Insertion of Infusion Device into Superior Vena Cava, Percutaneous Approach (ICD-10-PCS; 2021-06-15)
PROC: 4A133J1 Monitoring of Arterial Pulse, Peripheral, Percutaneous Approach (ICD-10-PCS; 2021-06-15)
PROC: 5A1955Z Respiratory Ventilation, Greater than 96 Consecutive Hours (ICD-10-PCS; 2021-06-15)
PROC: 4A133B1 Monitoring of Arterial Pressure, Peripheral, Percutaneous Approach (ICD-10-PCS; 2021-06-15)
PROC: 03HY32Z Insertion of Monitoring Device into Upper Artery, Percutaneous Approach (ICD-10-PCS; 2021-06-15)
PROC: 3E033XZ Introduction of Vasopressor into Peripheral Vein, Percutaneous Approach (ICD-10-PCS; 2021-06-15)
PROC: 5A09357 Assistance with Respiratory Ventilation, Less than 24 Consecutive Hours, Continuous Positive Airway Pressure (ICD-10-PCS; 2021-06-15)
PROC: 3E0G76Z Introduction of Nutritional Substance into Upper GI, Via Natural or Artificial Opening (ICD-10-PCS; 2021-06-16)
PROC: 05HM33Z Insertion of Infusion Device into Right Internal Jugular Vein, Percutaneous Approach (ICD-10-PCS; 2021-06-20)
PROC: 5A1D70Z Performance of Urinary Filtration, Intermittent, Less than 6 Hours Per Day (ICD-10-PCS; 2021-06-20)
PROC: 0DJ08ZZ Inspection of Upper Intestinal Tract, Via Natural or Artificial Opening Endoscopic (ICD-10-PCS; principal; 2021-06-26 12:30)
PROC: 0B110F4 Bypass Trachea to Cutaneous with Tracheostomy Device, Open Approach (ICD-10-PCS; principal; 2021-06-26 12:30)
PROC: 0B918ZX Drainage of Trachea, Via Natural or Artificial Opening Endoscopic, Diagnostic (ICD-10-PCS; 2021-06-30)
PROC: 0B938ZX Drainage of Right Main Bronchus, Via Natural or Artificial Opening Endoscopic, Diagnostic (ICD-10-PCS; 2021-06-30)
PROC: 0B918ZX Drainage of Trachea, Via Natural or Artificial Opening Endoscopic, Diagnostic (ICD-10-PCS; 2021-06-30)
PROC: 0B938ZX Drainage of Right Main Bronchus, Via Natural or Artificial Opening Endoscopic, Diagnostic (ICD-10-PCS; 2021-06-30)
PROC: 0B9C8ZX Drainage of Right Upper Lung Lobe, Via Natural or Artificial Opening Endoscopic, Diagnostic (ICD-10-PCS; 2021-06-30)
PROC: 30243N1 Transfusion of Nonautologous Red Blood Cells into Central Vein, Percutaneous Approach (ICD-10-PCS; 2021-07-03)
DX: A41.89 Other specified sepsis (principal); J12.82 Pneumonia due to coronavirus disease 2019; N17.0 Acute kidney failure with tubular necrosis; U07.1 COVID-19; E43 Unspecified severe protein-calorie malnutrition; J80 Acute respiratory distress syndrome; J15.1 Pneumonia due to Pseudomonas; R65.21 Severe sepsis with septic shock; B37.89 Other sites of candidiasis; B44.9 Aspergillosis, unspecified; E87.4 Mixed disorder of acid-base balance; B37.0 Candidal stomatitis; I48.20 Chronic atrial fibrillation, unspecified; K92.2 Gastrointestinal hemorrhage, unspecified; D62 Acute posthemorrhagic anemia; J93.9 Pneumothorax, unspecified; J98.19 Other pulmonary collapse; Z68.41 Body mass index [BMI] 40.0-44.9, adult; E66.01 Morbid (severe) obesity due to excess calories; Z51.5 Encounter for palliative care; Z66 Do not resuscitate; I27.20 Pulmonary hypertension, unspecified; J98.2 Interstitial emphysema; E83.39 Other disorders of phosphorus metabolism; A41.81 Sepsis due to Enterococcus; A41.52 Sepsis due to Pseudomonas; I10 Essential (primary) hypertension; E87.70 Fluid overload, unspecified; E87.5 Hyperkalemia; D72.810 Lymphocytopenia; F41.9 Anxiety disorder, unspecified; E78.5 Hyperlipidemia, unspecified; R04.0 Epistaxis; K59.00 Constipation, unspecified; I49.3 Ventricular premature depolarization; R74.01 Elevation of levels of liver transaminase levels; N50.89 Other specified disorders of the male genital organs; N40.0 Benign prostatic hyperplasia without lower urinary tract symptoms; M19.90 Unspecified osteoarthritis, unspecified site; Z53.8 Procedure and treatment not carried out for other reasons; Z79.82 Long term (current) use of aspirin; Z79.899 Other long term (current) drug therapy; Z90.49 Acquired absence of other specified parts of digestive tract; Z87.19 Personal history of other diseases of the digestive system; Z87.891 Personal history of nicotine dependence; Z96.653 Presence of artificial knee joint, bilateral; Z98.890 Other specified postprocedural states; Z71.3 Dietary counseling and surveillance
CPT/HCPCS: 31624; 36600; 43235; 71045; 71275; 74018; 80048; 80053; 82728; 82805; 83540; 83550; 83615; 84100; 84145; 84478; 84484; 85025; 85379; 85610; 86140; 86706; 86850; 86900; 86901; 86920; 87040; 87070; 87077; 87102; 87116; 87186; 87205; 87206; 87252; 87340; 87496; 87498; 87502; 87529; 87634; 87635; 87798; 88108; 88305; 89050; 90935; 93306; 93970; 94002; 94003; 94640; 94660; 94760; 96374; 96375; 99285